=== PATIENT | female | born 1945 | race Caucasian/White ===

== ENCOUNTER 2016-10-29 10:16 | Inpatient (IN) | payer OTHER, MEDICARE ==
[2016-10-29 10:21] VITALS: BMI 20.7
[2016-10-29] MEDS ORDERED: PIPERACILLIN/TAZOB 3.375 GM/50 ML PRE-DOCKED IV ONE (11:25)
--- NOTE | 2016-10-29 11:29 | PDOC ---
History of Present Illness <Neal Sharma - Last Filed: 10/29/16 12:32> - General History Source: Patient, Old Records Exam Limitations: No Limitations - History of Present Illness Initial Comments: 10/29/16 11:31 The patient is a 71-year-old woman with a significant past medical history of bladder Ca (currently receiving BCG treatments), hypertension, myocardial infarction, chronic obstructive pulmonary disease pre-diabetes who presents to the emergency department by her Urologist, Dr. Rome Temple for further evaluation of urinary tract infection. She underwent an outpatient cystoscopy for which a biopsy was performed and she was ultimately diagnosed with bladder Ca. Patient has been receiving BCG treatments (last treatment was approximately 1 week ago). She states that she typically brings urine samples to her outpatient appointments. She has a history of multi-drug resistant UTIs, for which she was noted to have an urinary tract infection and was started on PO antibiotics (Levaquin, Bactrim) which did not help, as she still has a UTI. Patient denies any urinary symptoms, such as dysuria, hematuria, urinary frequency and urgency, flank pain. She denies abdominal pain, nausea, vomiting, diarrhea, constipation. She also reports an intermittent wet cough for which she attributes to he rhsitory of chronic obstructive pulonary disease. she states that her cough is slightly better with the use of her home O2 and inhalers. She denies fever, chills, hemoptysis, diaphoresis, shortness of breath, chest pain, headache. Allergies: None Known Past Surgical History: Stent placement. Social History: Current everyday cigarette smoker (approximately half a pack/day ). No ETOH or recreational drug use. Primary Care Physician: Dr. Khanh Gutiérrez [phone]/ [phone] Urologist: Dr. Rome Temple [phone] <Eva Calderon - Last Filed: 10/29/16 14:32> - General Chief Complaint: Urinary Problem Stated Complaint: SOB Time Seen by Provider: 10/29/16 11:03 Past History - Past Medical History Cancer: Yes (bladder) Cardiac Disorders: Yes ([place] 2007, stents 2008) CVA: No COPD: Yes (uses 02 3l prn) CHF: No Dementia: No Diabetes: No (pre diabetic) GI Disorders: No Disorders: Yes (turbt) HTN: Yes Hypercholesterolemia: No Liver Disease: No Seizures: No Thyroid Disease: No - Surgical History Abdominal Surgery: No Appendectomy: No Cardiac Surgery: Yes (STENTS 2009) Cholecystectomy: No Lung Surgery: No Neurologic Surgery: No Orthopedic Surgery: Yes (GANGLION CYST) - Psycho/Social/Smoking Cessation Hx Suicidal Ideation: No Smoking History: Current every day smoker Have you smoked in the past 12 months: Yes Number of Cigarettes Smoked Daily: 20 Information on smoking cessation initiated: No 'Breaking Loose' booklet given: 09/15/16 Hx Alcohol Use: No Drug/Substance Use Hx: No Substance Use Type: None Hx Substance Use Treatment: No <Neal Sharma - Last Filed: 10/29/16 12:32> <Eva Calderon - Last Filed: 10/29/16 14:32> - Past Medical History Allergies/Adverse Reactions: Allergies Allergy/AdvReac Type Severity Reaction Status Date / Time No Known Drug Allergies Allergy Verified 10/29/16 10:21 Home Medications: Ambulatory Orders Albuterol Sulfate [Proair Respiclick] 1 mcg IH DAILY PRN 05/08/16 Amlodipine Besylate 10 mg PO DAILY 05/08/16 Atorvastatin [place] [Lipitor] 80 mg PO DAILY 05/08/16 Losartan Potassium 100 mg PO DAILY 05/08/16 Tiotropium [place] [Spiriva] 1 inh PO DAILY 05/08/16 Clopidogrel Bisulfate [Plavix -] 75 mg PO DAILY #0 05/12/16 Fluticasone/Salmeterol [Advair 250-50 Diskus] 1 each IH BID 09/09/16 Review of Systems - Review of Systems Constitutional: No: Chills, Fever Respiratory: Yes: Cough (chronic), Shortness of Breath (chronic) Cardiac (ROS): No: Chest Pain ABD/GI: No: Diarrhea, Vomiting : Yes: See HPI Musculoskeletal: Yes: Back Pain All Other Systems: Reviewed and Negative <Neal Sharma - Last Filed: 10/29/16 12:32> *Physical Exam - Vital Signs Last Vital Signs Temp Pulse Resp BP Pulse Ox 97.8 F 86 20 111/55 87 L 10/29/16 10:17 10/29/16 10:17 10/29/16 10:17 10/29/16 10:17 10/29/16 10:17 <Neal Sharma - Last Filed: 10/29/16 12:32> - Vital Signs Last Vital Signs Temp Pulse Resp BP Pulse Ox 97.8 F 86 20 111/55 87 L 10/29/16 10:17 10/29/16 10:17 10/29/16 10:17 10/29/16 10:17 10/29/16 10:17 - Physical Exam Comments: 10/29/16 11:31 GENERAL: The patient is awake, alert, and fully oriented, in no acute distress. HEAD: Normal with no signs of trauma. EYES: Pupils equal, round and reactive to light, extraocular movements intact, sclera anicteric, conjunctiva clear with no pallor. ENT: Ears normal, nares patent, oropharynx clear without exudates. Moist mucous membranes. NECK: Normal range of motion, supple without lymphadenopathy, JVD, or masses. LUNGS: There are some coarse respiratory breath sounds. HEART: Regular rate and rhythm, normal S1 and S2 without murmur or rub. ABDOMEN: Soft/nontender/nondistended. BS wnl. No guarding or rebound. No palpable masses. No hepatosplenomegaly. BACK: No CVA tenderness. EXTREMITIES: Normal range of motion, no edema. No clubbing or cyanosis. No cords, erythema, or tenderness. NEUROLOGICAL: Cranial nerves II through XII grossly intact. Normal speech. PSYCH: Normal mood, normal affect. SKIN: Warm, Dry, normal turgor, no rashes or lesions noted. <Eva Calderon - Last Filed: 10/29/16 14:32> ED Treatment Course - LABORATORY CBC & Chemistry Diagram: 10/29/16 11:39 10/29/16 11:39 - RADIOLOGY Radiology Studies Ordered: Category Date Time Status CHEST X-RAY PORTABLE* [RAD] Stat Radiology 10/29/16 11:05 Ordered <Neal Sharma - Last Filed: 10/29/16 12:32> - LABORATORY CBC & Chemistry Diagram: 10/29/16 11:39 10/29/16 11:39 - RADIOLOGY Radiograph Interpretation: 10/29/16 14:31 EXAM: RAD/CHEST X-RAY PORTABLE IMPRESSION: Comparison study April 10, 2011. Unremarkable contour of the cardiomediastinal silhouette. No evidence of widening of the superior mediastinum. No bulky hilar adenopathy is seen. No evidence of pulmonary infiltrates, atelectasis, pleural effusion or pneumothorax. Mild dextroscoliosis of the thoracic spine is noted. Intact visualized osseous structures. <Eva Calderon - Last Filed: 10/29/16 14:32> Medical Decision Making - Medical Decision Making 10/29/16 11:26 A portion of this note was documented by scribe services under my direction. I have reviewed the details of the note, within reason, and agree with the documentation with the following case summary and management plan written by me. 71-year-old female with history of bladder CVA receiving BCG treatments with Dr. Temple, recurrent UTI with several outpatient antibiotic courses is in the past, most recently diagnosed with another UTI on cultures from 10/21/16, which showed Klebsiella resistant to most antibiotics, now sent in by Dr. Leny Benitez for IV antibiotics to clear the UTI so she can proceed with BCG treatments. Afebrile. Well-appearing Chronic, coarse cough 71-year-old female with multidrug resistant Klebsiella UTI, otherwise no signs or symptoms of bacteremia or sepsis. Labs, urinalysis, urine culture Based on prior urine cultures, Klebsiella is sensitive to Zosyn. Will proceed with admission and contact Dr. Gutiérrez, the patient's primary physician. 10/29/16 12:32 Accepted for inpatient med/surg, endorsed to Dr. Phillip. <Neal Sharma - Last Filed: 10/29/16 12:32> *DC/Admit/Observation/Transfer - Discharge Dispostion Admit: Yes <Neal Sharma - Last Filed: 10/29/16 12:32> - Attestations Scribe Attestion: 10/29/16 11:31 Documentation prepared by Eva Calderon, acting as medical program specialist for Neal Sharma MD. <Eva Calderon - Last Filed: 10/29/16 14:32> Diagnosis at time of Disposition: Bladder cancer Qualifiers: Bladder location: unspecified site Qualified Code(s): C67.9 - Malignant neoplasm of bladder, unspecified UTI (urinary tract infection) Qualifiers: Urinary tract infection type: acute cystitis Hematuria presence: without hematuria Qualified Code(s): N30.00 - Acute cystitis without hematuria - Referrals
[2016-10-29] MEDS ORDERED: PIPERACILLIN/TAZOB 3.375 GM 50 ML IVPB ONE (11:44)
[2016-10-29 11:54] LABS: BASOPHIL 0.8 % (0-2.0); EOSINOPHIL 1.8 % (0-4.5); MCH 30.8 pg (25.7-33.7); MCHC 33.3 g/dl (32.0-36.0); MEAN CELL VOLUME 92.5 fl (80-96); MEAN PLT VOLUME 8.3 fl (7.5-11.1); NEUTROPHILS 74.8 % (42.8-82.8); PLATELET COUNT 230 K/MM3 (134-434); RDW 14.4 % (11.6-15.6); WHITE BLOOD COUNT 11.3 K/mm3 (4.0-10.0)
[2016-10-29 12:10] LABS: ALBUMIN 4.2 g/dl (3.4-5.0); ANION GAP 11 (8-16); BILIRUBIN,TOTAL 0.8 mg/dL (0.2-1.0); CALCIUM 9.4 mg/dL (8.5-10.1); CO2 29 mmol/L (21-32); CREATININE 1.1 mg/dL (0.55-1.02); GLUCOSE,RANDOM 85 mg/dL (74-106); SGPT/ALT 22 U/L (12-78); TOT PROT 7.1 g/dl (6.4-8.2)
[2016-10-29 12:12] LABS: ALK PHOS 75 U/L (45-117); TROPONIN I < 0.02 ng/ml (0.00-0.05)
[2016-10-29 12:15] LABS: SGOT/AST 29 U/L (15-37)
[2016-10-29 12:21] LABS: URINE APPEARANCE TURBID; URINE BILIRUBIN NEGATIVE (NEGATIVE); URINE COLOR YELLOW; URINE GLUCOSE (UA) NEGATIVE (NEGATIVE); URINE KETONE NEGATIVE (NEGATIVE); URINE NITRITE POSITIVE (NEGATIVE); URINE UROBILINOGEN NEGATIVE E.U./dl (0.2-1.0)
[2016-10-29 12:22] LABS: URINE BLOOD 1+ (NEGATIVE); URINE LEUK ESTERASE 3+ (NEGATIVE); URINE PROTEIN 1+ (NEGATIVE)
[2016-10-29] MEDS ORDERED: ALBUTEROL SO4 0.083% IH SOL 2.5 MG/3 ML VIAL.NEB. NEB PRN (12:23)
[2016-10-29 12:30] LABS: URINE BACTERIA FEW /hpf (NONE SEEN); URINE MUCUS RARE; URINE RBC 8 /hpf (0-3); URINE WBC 933 /hpf (3-5)
[2016-10-29 12:46] LABS: INR 0.91 (0.82-1.09)
[2016-10-29 12:48] LABS: ACTIVATED PTT 31.5 SECONDS (26.9-34.4)
--- NOTE | 2016-10-29 14:02 | PN ---
Progress Note (short form) - Note Progress Note: ID consult dictated imp/reccd 71 year old female with bladder cancer, s/p 6 cycles of BCG from May to September repeat cysto showed tumor and BCG was resumed 10/08, and again 10/21 she has had several UTIS enterobacter 10/01, klebsiella 10/15 and 10/21- she has been treated with po bactrim and po levaquin Klebsiella is resistant to po meds and she was sent to the hospital for iv antibiotics no fevers or chills she has been drinking alot of water and cranberry juice occasional dysuria- infrequent), no flank pain no hematuria no nausea or vomiting agree with zosyn based on outpt urine culture results, f/u labs sent here Problem List - Problems (1) UTI (urinary tract infection) Code(s): N39.0 - URINARY TRACT INFECTION, SITE NOT SPECIFIED Qualifiers: Urinary tract infection type: acute cystitis Hematuria presence: without hematuria Qualified Code(s): N30.00 - Acute cystitis without hematuria (2) Bladder cancer Code(s): C67.9 - MALIGNANT NEOPLASM OF BLADDER, UNSPECIFIED Qualifiers: Bladder location: unspecified site Qualified Code(s): C67.9 - Malignant neoplasm of bladder, unspecified
--- NOTE | 2016-10-29 14:37 | HP ---
Admitting History and Physical - Primary Care Physician PCP: Khanh Gutiérrez - Admission Chief Complaint: UTI. BLADDER CA History Source: Patient, Medical Record Limitations to Obtaining History: No Limitations - Past Medical History ...: No - Smoking History Smoking history: Current every day smoker Have you smoked in the past 12 months: Yes Aproximately how many cigarettes per day: 20 - Alcohol/Substance Use Hx Alcohol Use: No Home Medications - Allergies Allergies/Adverse Reactions: Allergies Allergy/AdvReac Type Severity Reaction Status Date / Time No Known Drug Allergies Allergy Verified 10/29/16 10:21 - Home Medications Home Medications: Ambulatory Orders Albuterol Sulfate [Proair Respiclick] 1 mcg IH DAILY PRN 05/08/16 Amlodipine Besylate 10 mg PO DAILY 05/08/16 Atorvastatin [place] [Lipitor] 80 mg PO DAILY 05/08/16 Losartan Potassium 100 mg PO DAILY 05/08/16 Tiotropium [place] [Spiriva] 1 inh PO DAILY 05/08/16 Clopidogrel Bisulfate [Plavix -] 75 mg PO DAILY #0 05/12/16 Fluticasone/Salmeterol [Advair 250-50 Diskus] 1 each IH BID 09/09/16 Review of Systems - Review of Systems Constitutional: denies: Chills, Fever Cardiovascular: denies: Chest Pain Respiratory: denies: SOB Gastrointestinal: denies: Abdominal Pain Physical Examination Vital Signs: Vital Signs Temperature 97.8 F 10/29/16 10:17 Pulse Rate 86 10/29/16 10:17 Respiratory Rate 20 10/29/16 10:17 Blood Pressure 111/55 10/29/16 10:17 O2 Sat by Pulse Oximetry (%) 87 L 10/29/16 10:17 Constitutional: Yes: Calm Eyes: Yes: PERRL HENT: Yes: Normocephalic Neck: Yes: Supple Cardiovascular: Yes: Regular Rate and Rhythm, S1, S2 Respiratory: Yes: CTA Bilaterally Gastrointestinal: Yes: Normal Bowel Sounds, Soft. No: Tenderness Edema: No Problem List - Problems (1) Bladder cancer Code(s): C67.9 - MALIGNANT NEOPLASM OF BLADDER, UNSPECIFIED Qualifiers: Bladder location: unspecified site Qualified Code(s): C67.9 - Malignant neoplasm of bladder, unspecified (2) UTI (urinary tract infection) Code(s): N39.0 - URINARY TRACT INFECTION, SITE NOT SPECIFIED Qualifiers: Urinary tract infection type: acute cystitis Hematuria presence: without hematuria Qualified Code(s): N30.00 - Acute cystitis without hematuria (3) HTN (hypertension) Code(s): I10 - ESSENTIAL (PRIMARY) HYPERTENSION (4) H/O acute myocardial infarction Code(s): I25.2 - OLD MYOCARDIAL INFARCTION (5) COPD (chronic obstructive pulmonary disease) Code(s): J44.9 - CHRONIC OBSTRUCTIVE PULMONARY DISEASE, UNSPECIFIED (6) Prediabetes Code(s): R73.09 - OTHER ABNORMAL GLUCOSE Assessment/Plan The patient is a 71-year-old woman with a significant past medical history of bladder Ca (currently receiving BCG treatments), hypertension, myocardial infarction, chronic obstructive pulmonary disease pre-diabetes who presents to the emergency department by her Urologist, Dr. Rmoe Temple for further evaluation of urinary tract infection. She underwent an outpatient cystoscopy for which a biopsy was performed and she was ultimately diagnosed with bladder Ca. Patient has been receiving BCG treatments (last treatment was approximately 1 week ago). She states that she typically brings urine samples to her outpatient appointments. She has a history of multi-drug resistant UTIs, for which she was noted to have an urinary tract infection and was started on PO antibiotics (Levaquin, Bactrim) which did not help, as she still has a UTI. Patient denies any urinary symptoms, such as dysuria, hematuria, urinary frequency and urgency, flank pain. She denies abdominal pain, nausea, vomiting, diarrhea, constipation. She also reports an intermittent wet cough for which she attributes to he rhsitory of chronic obstructive pulonary disease. she states that her cough is slightly better with the use of her home O2 and inhalers. She denies fever, chills, hemoptysis, diaphoresis, shortness of breath, chest pain, headache. Allergies: None Known Past Surgical History: Stent placement. Social History: Current everyday cigarette smoker (approximately half a pack/day ). No ETOH or recreational drug use. Primary Care Physician: Dr. Khanh Gutiérrez [phone] Urologist: Dr. Rome Temple [phone] (1) Bladder cancer Code(s): C67.9 - MALIGNANT NEOPLASM OF BLADDER, UNSPECIFIED Qualifiers: Bladder location: unspecified site Qualified Code(s): C67.9 - Malignant neoplasm of bladder, unspecified ON CT ONCO CONSULTED (2) UTI (urinary tract infection) Code(s): N39.0 - URINARY TRACT INFECTION, SITE NOT SPECIFIED Qualifiers: Urinary tract infection type: acute cystitis Hematuria presence: without hematuria Qualified Code(s): N30.00 - Acute cystitis without hematuria H/O MULTIRESISTANT UTI APPRECIATE ID CONSULT IV ABx F/U CULTURES (3) HTN (hypertension) Code(s): I10 - ESSENTIAL (PRIMARY) HYPERTENSION (4) H/O acute myocardial infarction Code(s): I25.2 - OLD MYOCARDIAL INFARCTION TROP NEG x 1 -> F/U (5) COPD (chronic obstructive pulmonary disease) Code(s): J44.9 - CHRONIC OBSTRUCTIVE PULMONARY DISEASE, UNSPECIFIED ALB NEB PRN (6) Prediabetes Code(s): R73.09 - OTHER ABNORMAL GLUCOSE 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
--- NOTE | 2016-10-29 15:09 | CONS ---
INFECTIOUS DISEASE CONSULTATION DATE OF CONSULTATION: 10/29/2016 REQUESTED BY: Stan Phillip MD DICTATED BY: Rafat Smith MD HISTORY OF PRESENT ILLNESS: This is a 71-year-old woman with past medical history of bladder cancer. She was diagnosed in the summer. She states she has had 6 cycles of intravesical BCG from May until September. She had a follow-up cystoscopy in September that again revealed some residual bladder tumor. She again had another cycle of BCG on October 08 and another one October 21. Between these episodes, she has had multiple urinary tract infections, October 01 with Enterobacter, October 15 and October 21 with klebsiella. She has been treated with oral Levaquin and oral Bactrim, but she was told that she had resistance to these medications and was advised admission for IV antibiotics. She denies abdominal pain, nausea, vomiting, diarrhea, constipation. She has no fevers or chills. She has no hematuria. She has rare dysuria and no flank pain. PAST MEDICAL HISTORY: Notable for: 1. Coronary artery disease 2. Bladder cancer 3. COPD PAST SURGICAL HISTORY: 1. She is status post TURBT. 2. She has cardiac stents. 3. She has had ganglion cyst therapy. FAMILY HISTORY: Unremarkable. SOCIAL HISTORY: She is . She still smokes. There is no history of any substance use. ALLERGIES: She has no known drug allergies. MEDICATIONS: Her medications as an outpatient include: 1. Albuterol 2. Amlodipine 3. Atorvastatin 4. Losartan 5. Spiriva 6. Plavix 7. Advair REVIEW OF SYSTEMS: Notable for chronic shortness of breath, which is unchanged, and no real symptoms. She has been drinking plenty of water and cranberry juice in an effort to get of this urinary tract infection. PHYSICAL EXAM: General: She is awake and alert. Vital signs: Temperature is 97.8, blood pressure 111/55, pulse 86, respiratory rate 20. She weighs 106 pounds. HEENT exam: She is normocephalic. Her eyes are anicteric. Her neck is supple. Lungs: Lungs are clear to auscultation. Heart: Heart is regular rate and rhythm. Abdomen: Abdomen is soft, nontender. She has no suprapubic or CVA discomfort. Extremities: Extremities are without edema. LABS: Labs are notable for a white count of 11.3, hemoglobin 18.1. Platelets are 230. BUN and creatinine are 21 and 1.1. LFTs are normal. Urinalysis has 3+ leukocyte/esterase with 933 white cells. Urine and blood cultures are pending, and chest x-ray is negative for infiltrate. SUMMARY: 1. In summary, this is a 71-year-old woman admitted with UTI in the setting of bladder cancer with plans to continue intravesical BCG. Given the prior sensitivities, would agree with Zosyn pending follow-up cultures here. Can readjust her antibiotics after the results are back. 2. Bladder cancer. 3. History of chronic obstructive pulmonary disease. RAFAT GALINDO M.D. [id number]
[2016-10-29] MEDS ORDERED: PT OWN MED DRAWER 7, Y5N ONE ×2 (17:24→21:38)
[2016-10-29] MEDS: PIPERACILLIN/TAZOB 3.375 GM/50 ML PRE-DOCKED IVPB SCH (17:30)
--- NOTE | 2016-10-29 19:09 | CONSULT ---
Consult - text type - Consultation Consultation Note: The patient is a 71-year-old woman with a significant past medical history of bladder Ca (currently receiving BCG treatments), hypertension, myocardial infarction, chronic obstructive pulmonary disease pre-diabetes who presents to the emergency department by her Urologist, Dr. Rome Temple for further evaluation of urinary tract infection. She underwent an outpatient cystoscopy and biopsy was performed and she was ultimately diagnosed with bladder Ca. Patient has been receiving BCG treatments (last treatment was approximately 1 week ago). She also reports an intermittent wet cough for which she attributes to he rhsitory of chronic obstructive pulonary disease. she states that her cough is slightly better with the use of her home O2 and inhalers. She denies fever, chills, hemoptysis, diaphoresis, shortness of breath, chest pain, headache. ++ wt. loss--30lbs in 6months Allergies: None Known Past Surgical History: Stent placement. Social History: Current everyday cigarette smoker (approximately half a pack/day ). No ETOH or recreational drug use. Past History - Past Medical History Cancer: Yes (bladder) Cardiac Disorders: Yes ([place] 2007, stents 2008) COPD: Yes (uses 02 3l prn) (pre diabetic) Disorders: Yes (turbt) HTN: Yes - Surgical History Cardiac Surgery: Yes (STENTS 2008) Orthopedic Surgery: Yes (GANGLION CYST) - Psycho/Social/Smoking Cessation Hx Smoking History: Current every day smoker - Past Medical History Allergies/Adverse Reactions: Allergies Allergy/AdvReac Type Severity Reaction Status Date / Time No Known Drug Allergies Allergy Verified 10/29/16 10:21 Home Medications: Ambulatory Orders Albuterol Sulfate [Proair Respiclick] 1 mcg IH DAILY PRN 05/08/16 Amlodipine Besylate 10 mg PO DAILY 05/08/16 Atorvastatin [place] [Lipitor] 80 mg PO DAILY 05/08/16 Losartan Potassium 100 mg PO DAILY 05/08/16 Tiotropium [place] [Spiriva] 1 inh PO DAILY 05/08/16 Clopidogrel Bisulfate [Plavix -] 75 mg PO DAILY #0 05/12/16 Fluticasone/Salmeterol [Advair 250-50 Diskus] 1 each IH BID 09/09/16 Current Medications Aclidinium [place] (Tudorza -) 1 puff IH BID ALFA Albuterol Sulfate (Ventolin 0.083% Nebulizer Soln -) 1 amp NEB Q4H PRN PRN Reason: SHORT OF BREATH/WHEEZING Amlodipine Besylate (Norvasc -) 10 mg PO DAILY [facility]FA Atorvastatin [place] (Lipitor -) 80 mg PO HS ALFA Budesonide/Formoterol Fumarate (Symbicort 80/4.5mcg -) 2 puff IH BID [facility]FA Clopidogrel Bisulfate (Plavix -) 75 mg PO DAILY [facility]FA Heparin Sodium (Porcine) (Heparin -) 5,000 unit SQ BID ALFA Losartan Potassium (Cozaar -) 100 mg PO DAILY ALFA Piperacillin Sod/Tazobactam Sod (Zosyn 3.375gm Ivpb (Pre-Docked)) 3.375 gm IVPB Q8H-IV ALFA Last Admin: 10/29/16 17:30 Dose: 3.375 gm *Physical Exam - Vital Signs Last Vital Signs Temp Pulse Resp BP Pulse Ox 97.8 F 86 20 111/55 87 L 10/29/16 10:17 10/29/16 10:17 10/29/16 10:17 10/29/16 10:17 10/29/16 10:17 mildly cachectic Cor: RSR, No murmurs, No gallops Lungs: diminished breath sounds, scattered rhonchi Abd: Soft, Normal bowel sounds, No organomegaly Ext:No significant edema Abnormal Lab Results 10/29/16 10/29/16 10/29/16 11:39 11:39 12:00 WBC 11.3 H RBC 5.86 H Hgb 18.1 H D Hct 54.2 H BUN 21 H Creatinine 1.1 H CK-MB (CK-2) 14.207 H Urine Protein 1+ H Urine Blood 1+ H Ur Leukocyte Esterase 3+ H Current Medications Aclidinium [place] (Tudorza -) 1 puff IH BID ALFA Albuterol Sulfate (Ventolin 0.083% Nebulizer Soln -) 1 amp NEB Q4H PRN PRN Reason: SHORT OF BREATH/WHEEZING Amlodipine Besylate (Norvasc -) 10 mg PO DAILY ALFA Atorvastatin [place] (Lipitor -) 80 mg PO HS ALFA Budesonide/Formoterol Fumarate (Symbicort 80/4.5mcg -) 2 puff IH BID ALFA Clopidogrel Bisulfate (Plavix -) 75 mg PO DAILY [facility] Heparin Sodium (Porcine) (Heparin -) 5,000 unit SQ BID ALFA Losartan Potassium (Cozaar -) 100 mg PO DAILY [facility] Piperacillin Sod/Tazobactam Sod (Zosyn 3.375gm Ivpb (Pre-Docked)) 3.375 gm IVPB Q8H-IV ALFA Last Admin: 10/29/16 17:30 Dose: 3.375 gm A/P 71-year-old female with multiple comorbidities, COPD--on intermittent home O2, history of bladder Cancer, diagnosed when she presented with hematuria last summer. Receiving BCG treatments with Dr. Temple, since 06/27,recurrent UTI with several outpatient antibiotic courses in the past, most recently diagnosed with another UTI on cultures from 10/21/16, which showed Klebsiella resistant to most antibiotics, now sent in by Dr. Temple for IV antibiotics. will disucss with Dr. Jerez/ Dr. Gutiérrez Also reports wt. loss 30lbs over 6 months due to stress
[2016-10-29] MEDS: ACLIDINIUM BROMIDE 400 MCG/INH AERO.POWD IH SCH (21:45)
[2016-10-29] MEDS: HEPARIN NA (PORCINE) 5,000 UNITS/ML 1ML VIAL SQ SCH (21:45)
[2016-10-29] MEDS: BUDESONIDE/FORMETEROL FUMARATE 80/4.5 mcg INHALER IH SCH (21:45)
[2016-10-29] MEDS: ATORVASTATIN CA 80 MG TABLET (FP) PO SCH (21:46)
[2016-10-29 22:49] LABS: TROPONIN I 0.02 ng/ml (0.00-0.05)
[2016-10-30] MEDS: PIPERACILLIN/TAZOB 3.375 GM/50 ML PRE-DOCKED IVPB SCH ×3 (01:33→17:22)
[2016-10-30 01:44] LABS: TROPONIN I < 0.02 ng/ml (0.00-0.05)
[2016-10-30 08:45] LABS: BASOPHIL 0.7 % (0-2.0); EOSINOPHIL 2.7 % (0-4.5); MCH 30.7 pg (25.7-33.7); MCHC 33.3 g/dl (32.0-36.0); MEAN CELL VOLUME 92.1 fl (80-96); MEAN PLT VOLUME 8.1 fl (7.5-11.1); NEUTROPHILS 59.7 % (42.8-82.8); PLATELET COUNT 195 K/MM3 (134-434); RDW 14.1 % (11.6-15.6); WHITE BLOOD COUNT 7.7 K/mm3 (4.0-10.0)
[2016-10-30 09:05] LABS: ALBUMIN 3.3 g/dl (3.4-5.0); CALCIUM 8.6 mg/dL (8.5-10.1); CREATININE 1.1 mg/dL (0.55-1.02); TOT PROT 5.5 g/dl (6.4-8.2)
[2016-10-30] MEDS ORDERED: PT OWN MED DRAWER 7, Y5N ONE ×3 (09:59→21:46)
[2016-10-30] MEDS: amLODIPine BESYLATE 10 MG TABLET (FP) PO SCH (10:00)
[2016-10-30] MEDS ORDERED: PATIENT'S OWN MEDICATION (NON-FORMULARY) (Losartan Potassium [Losartan Potassium] 100 MG) PO SCH (10:00)
[2016-10-30] MEDS: HEPARIN NA (PORCINE) 5,000 UNITS/ML 1ML VIAL SQ SCH ×2 (10:00→21:49)
[2016-10-30] MEDS: LOSARTAN POTASSIUM 50 MG TABLET (FP) PO SCH (10:00)
[2016-10-30] MEDS ORDERED: ATORVASTATIN CA 80 MG TABLET (FP) PO SCH (10:00)
[2016-10-30] MEDS ORDERED: TIOTROPIUM BROMIDE 18 MCG/INH (DEVICE W/ 30 CAPSULES) IH SCH (10:00)
[2016-10-30] MEDS: BUDESONIDE/FORMETEROL FUMARATE 80/4.5 mcg INHALER IH SCH ×2 (10:01→21:49)
[2016-10-30] MEDS: CLOPIDOGREL BISULFATE 75 MG TABLET (FP) PO SCH (10:01)
[2016-10-30] MEDS: ACLIDINIUM BROMIDE 400 MCG/INH AERO.POWD IH SCH ×2 (10:01→21:49)
--- NOTE | 2016-10-30 18:52 | CON.GU ---
Consult Consult Specialty:: urology Referred by:: Reason for Consultation:: resistant uti - History of Present Illness Chief Complaint: uti History of Present Illness: patient with history of uti resistant to oral antibiotics. Patien has TCC of bladder and is currently receiving intravesical BCG. The patient is unable to receive her BCG while having an active infection. She denies fever, chill, nausea, vomiting, or gross hematuria. - History Source History Provided By: Patient Limitations to Obtaining History: No Limitations - Past Medical History ...: No - Alcohol/Substance Use Hx Alcohol Use: No - Smoking History Smoking history: Current every day smoker Have you smoked in the past 12 months: Yes Aproximately how many cigarettes per day: 20 Home Medications - Allergies Allergies/Adverse Reactions: Allergies Allergy/AdvReac Type Severity Reaction Status Date / Time No Known Drug Allergies Allergy Verified 10/29/16 10:21 - Home Medications Home Medications: Ambulatory Orders Albuterol Sulfate [Proair Respiclick] 1 mcg IH DAILY PRN 05/08/16 Amlodipine Besylate 10 mg PO DAILY 05/08/16 Atorvastatin Ca [Lipitor] 80 mg PO DAILY 05/08/16 Losartan Potassium 100 mg PO DAILY 05/08/16 Tiotropium [place] [Spiriva] 1 inh PO DAILY 05/08/16 Clopidogrel Bisulfate [Plavix -] 75 mg PO DAILY #0 05/12/16 Fluticasone/Salmeterol [Advair 250-50 Diskus] 1 each IH BID 09/09/16 Physical Exam- Vital Signs: Vital Signs Temperature 98.2 F 10/30/16 17:12 Pulse Rate 72 10/30/16 17:12 Respiratory Rate 20 10/30/16 17:12 Blood Pressure 119/55 10/30/16 17:12 O2 Sat by Pulse Oximetry (%) 98 10/30/16 09:00 Constitutional: Yes: Well Nourished, No Distress, Anxious, Other Eyes: Yes: WNL, Conjunctiva Clear, Occular Prosthesis HENT: Yes: WNL, Normocephalic, Tonsillar Exudate Neck: Yes: WNL, Trachea Midline Cardiovascular: Yes: WNL, Regular Rate and Rhythm Respiratory: Yes: On Nasal O2 Gastrointestinal: Yes: WNL, Normal Bowel Sounds, Soft Renal/: Yes: WNL Kidneys: Yes: WNL Pelvis: Yes: Bladder Non Palpable External Genitalia: Yes: WNL Labs: CBC, BMP 10/30/16 07:30 10/30/16 07:30 Assessment/Plan impression TCC of bladder UTI resistant to oral antibiotics Plan antibiotics as per ID discussed with patient x 20 minutes
--- NOTE | 2016-10-30 19:33 | PN ---
Progress Note, Physician - Current Medication List Current Medications: Active Medications Aclidinium [place] (Tudorza -) 1 puff IH BID [facility] Last Admin: 10/30/16 10:01 Dose: 1 puff Albuterol Sulfate (Ventolin 0.083% Nebulizer Soln -) 1 amp NEB Q4H PRN PRN Reason: SHORT OF BREATH/WHEEZING Amlodipine Besylate (Norvasc -) 10 mg PO DAILY [facility] Last Admin: 10/30/16 10:00 Dose: 10 mg Atorvastatin Calcium (Lipitor -) 80 mg PO HS [facility] Last Admin: 10/29/16 21:46 Dose: Not Given Budesonide/Formoterol Fumarate (Symbicort 80/4.5mcg -) 2 puff IH BID [facility] Last Admin: 10/30/16 10:01 Dose: 2 puff Clopidogrel Bisulfate (Plavix -) 75 mg PO DAILY [facility] Last Admin: 10/30/16 10:01 Dose: 75 mg Heparin Sodium (Porcine) (Heparin -) 5,000 unit SQ BID [facility] Last Admin: 10/30/16 10:00 Dose: 5,000 unit Losartan Potassium (Cozaar -) 100 mg PO DAILY [facility] Last Admin: 10/30/16 10:00 Dose: 100 mg Piperacillin Sod/Tazobactam Sod (Zosyn 3.375gm Ivpb (Pre-Docked)) 3.375 gm IVPB Q8H-IV [facility] Last Admin: 10/30/16 17:22 Dose: 3.375 gm - Objective Vital Signs: Vital Signs Temperature 98.2 F 10/30/16 17:12 Pulse Rate 72 10/30/16 17:12 Respiratory Rate 20 10/30/16 17:12 Blood Pressure 119/55 10/30/16 17:12 O2 Sat by Pulse Oximetry (%) 98 10/30/16 09:00 Cardiovascular: Yes: WNL Respiratory: Yes: WNL Gastrointestinal: Yes: WNL Labs: CBC, BMP 10/30/16 07:30 10/30/16 07:30 INR, PTT INR 0.91 (0.82-1.09) 10/29/16 11:39 Problem List - Problems (1) Bladder cancer Code(s): C67.9 - MALIGNANT NEOPLASM OF BLADDER, UNSPECIFIED Qualifiers: Bladder location: unspecified site Qualified Code(s): C67.9 - Malignant neoplasm of bladder, unspecified (2) UTI (urinary tract infection) Code(s): N39.0 - URINARY TRACT INFECTION, SITE NOT SPECIFIED Qualifiers: Urinary tract infection type: acute cystitis Hematuria presence: without hematuria Qualified Code(s): N30.00 - Acute cystitis without hematuria (3) HTN (hypertension) Code(s): I10 - ESSENTIAL (PRIMARY) HYPERTENSION (4) H/O acute myocardial infarction Code(s): I25.2 - OLD MYOCARDIAL INFARCTION (5) COPD (chronic obstructive pulmonary disease) Code(s): J44.9 - CHRONIC OBSTRUCTIVE PULMONARY DISEASE, UNSPECIFIED (6) Prediabetes Code(s): R73.09 - OTHER ABNORMAL GLUCOSE Assessment/Plan [facility]
--- NOTE | 2016-10-30 20:39 | PN ---
Progress Note (short form) - Note Progress Note: - Patient seen and examined anxious to go home Last Vital Signs Temp Pulse Resp BP Pulse Ox 98.2 F 72 20 119/55 98 10/30/16 17:12 10/30/16 17:12 10/30/16 17:12 10/30/16 17:12 10/30/16 09:00 HEENT: [place], EOM Intact Oropharynx: No thrush, No mucositis Cor: RSR, No murmurs, No gallops Lungs: distant breath sounds Abd: Soft, Normal bowel sounds, No organomegaly Ext:No significant edema Abnormal Lab Results 10/30/16 10/30/16 07:30 07:30 Hgb 15.5 H D Hct 46.5 H Anion Gap 7 L BUN 23 H Creatinine 1.1 H Total Protein 5.5 L D Albumin 3.3 L D A/P 71-year-old female with multiple comorbidities, COPD--on intermittent home O2, history of bladder Cancer, diagnosed when she presented with hematuria last summer. Receiving BCG treatments with Dr. Temple, since 06/27,recurrent UTI with several outpatient antibiotic courses in the past, most recently diagnosed with another UTI on cultures from 10/21/16, which showed Klebsiella resistant to most antibiotics, now sent in by Dr. Temple for IV antibiotics. Also reports wt. loss 30lbs over 6 months due to stress will discuss with teams involved
[2016-10-30] MEDS: ATORVASTATIN CA 80 MG TABLET (FP) PO SCH (21:49)
[2016-10-31] MEDS: PIPERACILLIN/TAZOB 3.375 GM/50 ML PRE-DOCKED IVPB SCH ×2 (01:32→10:28)
[2016-10-31 08:11] LABS: BASOPHIL 0.7 % (0-2.0); EOSINOPHIL 2.7 % (0-4.5); MCH 30.5 pg (25.7-33.7); MEAN CELL VOLUME 92.5 fl (80-96); MEAN PLT VOLUME 7.8 fl (7.5-11.1); NEUTROPHILS 63.6 % (42.8-82.8); PLATELET COUNT 196 K/MM3 (134-434); WHITE BLOOD COUNT 7.9 K/mm3 (4.0-10.0)
[2016-10-31 08:15] LABS: ALBUMIN 3.3 g/dl (3.4-5.0); CALCIUM 8.4 mg/dL (8.5-10.1)
[2016-10-31 08:17] LABS: BILIRUBIN,TOTAL 0.7 mg/dL (0.2-1.0); TOT PROT 5.6 g/dl (6.4-8.2)
[2016-10-31] MEDS ORDERED: PT OWN MED DRAWER 7, Y5N ONE (10:20)
[2016-10-31] MEDS: ACLIDINIUM BROMIDE 400 MCG/INH AERO.POWD IH SCH ×2 (10:27→21:49)
[2016-10-31] MEDS: BUDESONIDE/FORMETEROL FUMARATE 80/4.5 mcg INHALER IH SCH ×2 (10:27→21:49)
[2016-10-31] MEDS: HEPARIN NA (PORCINE) 5,000 UNITS/ML 1ML VIAL SQ SCH ×2 (10:28→21:49)
[2016-10-31] MEDS: amLODIPine BESYLATE 10 MG TABLET (FP) PO SCH (10:28)
[2016-10-31] MEDS: CLOPIDOGREL BISULFATE 75 MG TABLET (FP) PO SCH (10:28)
[2016-10-31] MEDS: LOSARTAN POTASSIUM 50 MG TABLET (FP) PO SCH (10:28)
--- NOTE | 2016-10-31 10:39 | PN ---
Progress Note, Physician Chief Complaint: AWAKE ALERT DENIES FEVER OR CHILLS - Current Medication List Current Medications: Active Medications Aclidinium [place] (Tudorza -) 1 puff IH BID [facility] Last Admin: 10/31/16 10:27 Dose: 1 puff Albuterol Sulfate (Ventolin 0.083% Nebulizer Soln -) 1 amp NEB Q4H PRN PRN Reason: SHORT OF BREATH/WHEEZING Amlodipine Besylate (Norvasc -) 10 mg PO DAILY [facility] Last Admin: 10/31/16 10:28 Dose: 10 mg Atorvastatin Calcium (Lipitor -) 80 mg PO HS [facility] Last Admin: 10/30/16 21:49 Dose: 80 mg Budesonide/Formoterol Fumarate (Symbicort 80/4.5mcg -) 2 puff IH BID [facility] Last Admin: 10/31/16 10:27 Dose: 2 puff Clopidogrel Bisulfate (Plavix -) 75 mg PO DAILY [facility] Last Admin: 10/31/16 10:28 Dose: 75 mg Heparin Sodium (Porcine) (Heparin -) 5,000 unit SQ BID [facility] Last Admin: 10/31/16 10:28 Dose: 5,000 unit Losartan Potassium (Cozaar -) 100 mg PO DAILY [facility] Last Admin: 10/31/16 10:28 Dose: 100 mg Piperacillin Sod/Tazobactam Sod (Zosyn 3.375gm Ivpb (Pre-Docked)) 3.375 gm IVPB Q8H-IV [facility] Last Admin: 10/31/16 10:28 Dose: 3.375 gm - Objective Vital Signs: Vital Signs Temperature 97.8 F 10/31/16 08:00 Pulse Rate 57 L 10/31/16 08:00 Respiratory Rate 18 10/31/16 08:00 Blood Pressure 139/67 10/31/16 08:00 O2 Sat by Pulse Oximetry (%) 98 10/30/16 21:00 Constitutional: Yes: No Distress Eyes: Yes: WNL HENT: Yes: WNL Neck: Yes: WNL Cardiovascular: Yes: WNL Respiratory: Yes: Cough, Diminished, On Nasal O2 Gastrointestinal: Yes: WNL Genitourinary: Yes: Other Musculoskeletal: Yes: WNL Extremities: Yes: WNL Edema: No Peripheral Pulses WNL: Yes Integumentary: Yes: WNL Wound/Incision: Yes: Clean/Dry Neurological: Yes: WNL ...Motor Strength: WNL Psychiatric: Yes: WNL Labs: CBC, BMP 10/31/16 06:25 10/31/16 06:25 INR, PTT INR 0.91 (0.82-1.09) 10/29/16 11:39 Problem List - Problems (1) Bladder cancer Code(s): C67.9 - MALIGNANT NEOPLASM OF BLADDER, UNSPECIFIED Qualifiers: Bladder location: unspecified site Qualified Code(s): C67.9 - Malignant neoplasm of bladder, unspecified (2) COPD (chronic obstructive pulmonary disease) Code(s): J44.9 - CHRONIC OBSTRUCTIVE PULMONARY DISEASE, UNSPECIFIED (3) HTN (hypertension) Code(s): I10 - ESSENTIAL (PRIMARY) HYPERTENSION (4) UTI (urinary tract infection) Code(s): N39.0 - URINARY TRACT INFECTION, SITE NOT SPECIFIED Qualifiers: Urinary tract infection type: acute cystitis Hematuria presence: without hematuria Qualified Code(s): N30.00 - Acute cystitis without hematuria Assessment/Plan RESISTANT UTI NEG BACILLI AWAIT SENSITIVITY ZOSYN IV CONTINUED FAILED ON PO ABX OUTPATIENT COPD STABLE 02 ID NEBS INH BLADDER CANCER TCC ONCOLOGY FOLLOW UP
--- NOTE | 2016-10-31 15:40 | PN ---
Progress Note (short form) - Note Progress Note: she is very anxious no other complaints has had a 30 poound weight loss since diagnosis Vital Signs Period Temp Pulse Resp BP Sys/Lock Pulse Ox Last 24 Hr 97.5 F-98.3 F 57-72 18-20 119-139/55-76 92-98 cor-rrr lungs clear abd soft, nt ext no edema CBC, BMP 10/31/16 06:25 10/31/16 06:25 Microbiology 10/29/16 12:49 Blood - Peripheral Venous Blood Culture - Preliminary NO GROWTH OBTAINED AFTER 48 HOURS, INCUBATION TO CONTINUE FOR 3 DAYS. 10/29/16 12:07 Urine - Urine Clean Catch Urine Culture - Final Klebsiella Pneumoniae - Esbl 10/29/16 21:00 Blood - Peripheral Venous Blood Culture - Preliminary NO GROWTH OBTAINED AFTER 24 HOURS, INCUBATION TO CONTINUE FOR 4 DAYS. a/p bladder cancer-on BCG treatment kleb esbl uti- day #2 antibiotics switch to ertapenem will need picc line and treatment for two weeks d/w patient she is upset but understands the rationale for the treatment wt loss- f/u with oncology check TSH still smoking! Problem List - Problems (1) UTI (urinary tract infection) Code(s): N39.0 - URINARY TRACT INFECTION, SITE NOT SPECIFIED Qualifiers: Urinary tract infection type: acute cystitis Hematuria presence: without hematuria Qualified Code(s): N30.00 - Acute cystitis without hematuria (2) Bladder cancer Code(s): C67.9 - MALIGNANT NEOPLASM OF BLADDER, UNSPECIFIED Qualifiers: Bladder location: unspecified site Qualified Code(s): C67.9 - Malignant neoplasm of bladder, unspecified
--- NOTE | 2016-10-31 16:31 | PN ---
Progress Note (short form) - Note Progress Note: Patient seen and examined Being evaluated for therapy for resistant Klebsiella. Goal to sterilize urine to facilitate reinstitution of BCG. Last Vital Signs Temp Pulse Resp BP Pulse Ox 98.3 F 70 20 138/76 92 L 10/31/16 15:14 10/31/16 15:14 10/31/16 15:14 10/31/16 15:14 10/31/16 10:46 HEENT: [place], EOM Intact Oropharynx: No thrush, No mucositis,dentures Cor: RSR, No murmurs, No gallops Lungs:diminished breath sounds bilaterally Abd: Soft, Normal bowel sounds, No organomegaly Ext:No significant edema Skin: No rashes, Integument intact CBC, BMP 10/31/16 06:25 10/31/16 06:25 Current Medications Generic Name Dose Route Start Last Admin Trade Name Freq PRN Reason Stop Dose Admin Aclidinium [place] 1 puff 10/29/16 22:00 10/31/16 10:27 Tudorza - IH 1 puff BID [facility] Administration Albuterol Sulfate 1 amp 10/29/16 12:23 Ventolin 0.083% Nebulizer Soln - NEB Q4H PRN SHORT OF BREATH/WHEEZING Amlodipine Besylate 10 mg 10/30/16 10:00 10/31/16 10:28 Norvasc - PO 10 mg DAILY [facility] Administration Atorvastatin Calcium 80 mg 10/29/16 22:00 10/30/16 21:49 Lipitor - PO 80 mg HS [facility] Administration Budesonide/Formoterol Fumarate 2 puff 10/29/16 22:00 10/31/16 10:27 Symbicort 80/4.5mcg - IH 2 puff BID [facility] Administration Clopidogrel Bisulfate 75 mg 10/30/16 10:00 10/31/16 10:28 Plavix - PO 75 mg DAILY [facility] Administration Heparin Sodium (Porcine) 5,000 unit 10/29/16 22:00 10/31/16 10:28 Heparin - SQ 5,000 unit BID [facility] Administration Ertapenem 1 gm/ Sodium 50 mls @ 50 mls/hr 10/31/16 15:45 Chloride IVPB DAILY [facility] Losartan Potassium 100 mg 10/30/16 10:00 10/31/16 10:28 Cozaar - PO 100 mg DAILY [facility] Administration Impression: Problem List - Problems (1) Bladder cancer Assessment/Plan: Patient underwent cystoscopy in May 2016. Found to have superficial bladder ca involving lamina propria. NO LVI and no muscle in biopsy specimen. Treated with weekly BCG x 6, and one month later additional BCG. In early September, repeat cysto and biopsy was negative for ca. Has had multiple UTI's and now with resistant Klebsiella in urine such that additional therapy cannot be administered. Seen by I.D. and will need therapy for ESBL UTI. Patient has lost 30 lbs over the time period since diagnosis.( ) It would be unusual to lose such weight from a superficial bladder ca. Will therefore do screening Ct scans. Code(s): C67.9 - MALIGNANT NEOPLASM OF BLADDER, UNSPECIFIED Qualifiers: Bladder location: unspecified site Qualified Code(s): C67.9 - Malignant neoplasm of bladder, unspecified (2) COPD (chronic obstructive pulmonary disease) Code(s): J44.9 - CHRONIC OBSTRUCTIVE PULMONARY DISEASE, UNSPECIFIED (3) UTI (urinary tract infection) Code(s): N39.0 - URINARY TRACT INFECTION, SITE NOT SPECIFIED Qualifiers: Urinary tract infection type: acute cystitis Hematuria presence: without hematuria Qualified Code(s): N30.00 - Acute cystitis without hematuria (4) Weight loss Code(s): R63.4 - ABNORMAL WEIGHT LOSS
[2016-10-31] MEDS: ERTAPENEM SODIUM 1 GM in SODIUM CHLORIDE 50 ML IVPB SCH (18:01)
[2016-10-31] MEDS: ATORVASTATIN CA 80 MG TABLET (FP) PO SCH (21:49)
[2016-11-01] MEDS ORDERED: PT OWN MED DRAWER 7, Y5N ONE (10:16)
[2016-11-01] MEDS: LACTOBACILLUS ACIDOPHILUS 1 EACH TAB (FP) PO SCH (10:19)
[2016-11-01] MEDS: HEPARIN NA (PORCINE) 5,000 UNITS/ML 1ML VIAL SQ SCH ×2 (10:20→21:47)
[2016-11-01] MEDS ORDERED: diphenhydrAMINE HCL 25 MG CAPSULE (FP) PO PRN (10:20)
[2016-11-01] MEDS: CLOPIDOGREL BISULFATE 75 MG TABLET (FP) PO SCH (10:20)
[2016-11-01] MEDS: ERTAPENEM SODIUM 1 GM in SODIUM CHLORIDE 50 ML IVPB SCH (10:20)
[2016-11-01] MEDS: amLODIPine BESYLATE 10 MG TABLET (FP) PO SCH (10:20)
[2016-11-01] MEDS: LOSARTAN POTASSIUM 50 MG TABLET (FP) PO SCH (10:20)
[2016-11-01] MEDS: BUDESONIDE/FORMETEROL FUMARATE 80/4.5 mcg INHALER IH SCH ×2 (10:21→21:46)
[2016-11-01] MEDS: ACLIDINIUM BROMIDE 400 MCG/INH AERO.POWD IH SCH ×2 (10:21→21:47)
--- NOTE | 2016-11-01 10:29 | PN ---
Progress Note, Physician Chief Complaint: AWAKE ALERT C/O TIMING OF CT SCAN C/O IV ABX C/O HER MEDICAL STATUS PATIENT APPEARS DEPRESSED - Current Medication List Current Medications: Active Medications Aclidinium [place] (Tudorza -) 1 puff IH BID [facility] Last Admin: 11/01/16 10:21 Dose: 1 puff Albuterol Sulfate (Ventolin 0.083% Nebulizer Soln -) 1 amp NEB Q4H PRN PRN Reason: SHORT OF BREATH/WHEEZING Amlodipine Besylate (Norvasc -) 10 mg PO DAILY [facility] Last Admin: 11/01/16 10:20 Dose: 10 mg Atorvastatin Calcium (Lipitor -) 80 mg PO HS [facility] Last Admin: 10/31/16 21:49 Dose: 80 mg Budesonide/Formoterol Fumarate (Symbicort 80/4.5mcg -) 2 puff IH BID [facility] Last Admin: 11/01/16 10:21 Dose: 2 puff Clopidogrel Bisulfate (Plavix -) 75 mg PO DAILY [facility] Last Admin: 11/01/16 10:20 Dose: 75 mg Heparin Sodium (Porcine) (Heparin -) 5,000 unit SQ BID [facility] Last Admin: 11/01/16 10:20 Dose: 5,000 unit Ertapenem 1 gm/ Sodium (Chloride) 50 mls @ 50 mls/hr IVPB DAILY [facility] Last Admin: 11/01/16 10:20 Dose: 50 mls/hr Lactobacillus Acidophilus (Bacid -) 1 tab PO DAILY [facility] Last Admin: 11/01/16 10:19 Dose: 1 tab Losartan Potassium (Cozaar -) 100 mg PO DAILY [facility] Last Admin: 11/01/16 10:20 Dose: 100 mg - Objective Vital Signs: Vital Signs Temperature 97.8 F 11/01/16 06:00 Pulse Rate 62 11/01/16 06:00 Respiratory Rate 20 11/01/16 06:00 Blood Pressure 134/77 11/01/16 06:00 O2 Sat by Pulse Oximetry (%) 95 10/31/16 21:00 Constitutional: Yes: Moderate Distress Eyes: Yes: WNL HENT: Yes: WNL Neck: Yes: WNL Cardiovascular: Yes: WNL Respiratory: Yes: Diminished, On Nasal O2 Gastrointestinal: Yes: WNL Genitourinary: Yes: WNL Musculoskeletal: Yes: WNL Extremities: Yes: WNL Edema: No Peripheral Pulses WNL: Yes Integumentary: Yes: WNL Wound/Incision: Yes: Clean/Dry Neurological: Yes: WNL ...Motor Strength: WNL Psychiatric: Yes: WNL Labs: CBC, BMP 10/31/16 06:25 10/31/16 06:25 INR, PTT INR 0.91 (0.82-1.09) 10/29/16 11:39 Problem List - Problems (1) Bladder cancer Code(s): C67.9 - MALIGNANT NEOPLASM OF BLADDER, UNSPECIFIED Qualifiers: Bladder location: unspecified site Qualified Code(s): C67.9 - Malignant neoplasm of bladder, unspecified (2) COPD (chronic obstructive pulmonary disease) Code(s): J44.9 - CHRONIC OBSTRUCTIVE PULMONARY DISEASE, UNSPECIFIED (3) HTN (hypertension) Code(s): I10 - ESSENTIAL (PRIMARY) HYPERTENSION (4) UTI (urinary tract infection) Code(s): N39.0 - URINARY TRACT INFECTION, SITE NOT SPECIFIED Qualifiers: Urinary tract infection type: acute cystitis Hematuria presence: without hematuria Qualified Code(s): N30.00 - Acute cystitis without hematuria (5) ESBL (extended spectrum beta-lactamase) producing bacteria infection Code(s): A49.9 - BACTERIAL INFECTION, UNSPECIFIED Z16.12 - EXTENDED SPECTRUM BETA LACTAMASE (ESBL) RESISTANCE Assessment/Plan RESISTANT UTI NEG BACILLI ESBL ON ISOLATION AWAIT SENSITIVITY ZOSYN IV CONTINUED/MERIPENEM PICC LINE THURSDAY DC HOME FAILED ON PO ABX OUTPATIENT COPD STABLE 02 NC NEBS INH BLADDER CANCER TCC ONCOLOGY FOLLOW UP
[2016-11-01] MEDS: NICOTINE 21 MG/24 HOURS TOPICAL PATCH TD SCH (14:58)
[2016-11-01] MEDS: CITALOPRAM HYDROBROMIDE 10 MG TABLET (FP) PO SCH (14:58)
[2016-11-01] MEDS: ATORVASTATIN CA 80 MG TABLET (FP) PO SCH (21:46)
[2016-11-02] MEDS ORDERED: PT OWN MED DRAWER 7, Y5N ONE (09:50)
[2016-11-02] MEDS: LOSARTAN POTASSIUM 50 MG TABLET (FP) PO SCH (09:57)
[2016-11-02] MEDS: CLOPIDOGREL BISULFATE 75 MG TABLET (FP) PO SCH (09:58)
[2016-11-02] MEDS: CITALOPRAM HYDROBROMIDE 10 MG TABLET (FP) PO SCH (09:58)
[2016-11-02] MEDS: LACTOBACILLUS ACIDOPHILUS 1 EACH TAB (FP) PO SCH (09:58)
[2016-11-02] MEDS: amLODIPine BESYLATE 10 MG TABLET (FP) PO SCH (09:58)
[2016-11-02] MEDS: NICOTINE 21 MG/24 HOURS TOPICAL PATCH TD SCH (09:59)
[2016-11-02] MEDS: HEPARIN NA (PORCINE) 5,000 UNITS/ML 1ML VIAL SQ SCH ×2 (09:59→21:47)
[2016-11-02] MEDS: BUDESONIDE/FORMETEROL FUMARATE 80/4.5 mcg INHALER IH SCH ×2 (09:59→21:47)
[2016-11-02] MEDS: ACLIDINIUM BROMIDE 400 MCG/INH AERO.POWD IH SCH ×2 (10:00→21:47)
[2016-11-02] MEDS: ERTAPENEM SODIUM 1 GM in SODIUM CHLORIDE 50 ML IVPB SCH (10:20)
--- NOTE | 2016-11-02 12:50 | PN ---
Progress Note, Physician Chief Complaint: awake alert +cough ct abd/pelvis no acute changes , no neoplasms - Current Medication List Current Medications: Active Medications Aclidinium [place] (Tudorza -) 1 puff IH BID [facility] Last Admin: 11/02/16 10:00 Dose: 1 puff Albuterol Sulfate (Ventolin 0.083% Nebulizer Soln -) 1 amp NEB Q4H PRN PRN Reason: SHORT OF BREATH/WHEEZING Last Admin: 11/01/16 20:05 Dose: 1 amp Amlodipine Besylate (Norvasc -) 10 mg PO DAILY [facility] Last Admin: 11/02/16 09:58 Dose: 10 mg Atorvastatin Calcium (Lipitor -) 80 mg PO HS [facility] Last Admin: 11/01/16 21:46 Dose: 80 mg Budesonide/Formoterol Fumarate (Symbicort 80/4.5mcg -) 2 puff IH BID [facility] Last Admin: 11/02/16 09:59 Dose: 2 puff Citalopram Hydrobromide (Celexa -) 5 mg PO DAILY [facility] Last Admin: 11/02/16 09:58 Dose: 5 mg Clopidogrel Bisulfate (Plavix -) 75 mg PO DAILY [facility] Last Admin: 11/02/16 09:58 Dose: 75 mg Diphenhydramine HCl (Benadryl -) 25 mg PO Q6H PRN PRN Reason: FOR ITCHING Heparin Sodium (Porcine) (Heparin -) 5,000 unit SQ BID [facility] Last Admin: 11/02/16 09:59 Dose: 5,000 unit Ertapenem 1 gm/ Sodium (Chloride) 50 mls @ 50 mls/hr IVPB DAILY [facility] Last Admin: 11/02/16 10:20 Dose: 50 mls/hr Lactobacillus Acidophilus (Bacid -) 1 tab PO DAILY [facility] Last Admin: 11/02/16 09:58 Dose: 1 tab Losartan Potassium (Cozaar -) 100 mg PO DAILY [facility] Last Admin: 11/02/16 09:57 Dose: 100 mg Nicotine (Nicoderm Patch -) 21 mg TD DAILY [facility] Last Admin: 11/02/16 09:59 Dose: 21 mg - Objective Vital Signs: Vital Signs Temperature 98.0 F 11/02/16 06:00 Pulse Rate 63 11/02/16 06:00 Respiratory Rate 20 11/02/16 06:00 Blood Pressure 150/80 11/02/16 06:00 O2 Sat by Pulse Oximetry (%) 95 10/31/16 21:00 Constitutional: Yes: Mild Distress Eyes: Yes: WNL HENT: Yes: WNL Neck: Yes: WNL Cardiovascular: Yes: WNL Respiratory: Yes: Cough, Diminished, On Nasal O2 Gastrointestinal: Yes: WNL Genitourinary: Yes: WNL Musculoskeletal: Yes: Muscle Weakness Extremities: Yes: WNL Edema: No Peripheral Pulses WNL: Yes Integumentary: Yes: WNL Wound/Incision: Yes: Clean/Dry Neurological: Yes: WNL ...Motor Strength: LLE, RLE Psychiatric: Yes: Other Labs: CBC, BMP 10/31/16 06:25 10/31/16 06:25 INR, PTT INR 0.91 (0.82-1.09) 10/29/16 11:39 Problem List - Problems (1) Bladder cancer Code(s): C67.9 - MALIGNANT NEOPLASM OF BLADDER, UNSPECIFIED Qualifiers: Bladder location: unspecified site Qualified Code(s): C67.9 - Malignant neoplasm of bladder, unspecified (2) COPD (chronic obstructive pulmonary disease) Code(s): J44.9 - CHRONIC OBSTRUCTIVE PULMONARY DISEASE, UNSPECIFIED (3) HTN (hypertension) Code(s): I10 - ESSENTIAL (PRIMARY) HYPERTENSION (4) UTI (urinary tract infection) Code(s): N39.0 - URINARY TRACT INFECTION, SITE NOT SPECIFIED Qualifiers: Urinary tract infection type: acute cystitis Hematuria presence: without hematuria Qualified Code(s): N30.00 - Acute cystitis without hematuria (5) ESBL (extended spectrum beta-lactamase) producing bacteria infection Code(s): A49.9 - BACTERIAL INFECTION, UNSPECIFIED Z16.12 - EXTENDED SPECTRUM BETA LACTAMASE (ESBL) RESISTANCE Assessment/Plan RESISTANT UTI NEG BACILLI ESBL ON ISOLATION AWAIT SENSITIVITY ZOSYN IV CONTINUED/MERIPENEM PICC LINE THURSDAY DC HOME FAILED ON PO ABX OUTPATIENT COPD STABLE 02 NC NEBS INH BLADDER CANCER TCC ONCOLOGY FOLLOW UP
[2016-11-02] MEDS: ATORVASTATIN CA 80 MG TABLET (FP) PO SCH (21:47)
--- NOTE | 2016-11-03 08:31 | CON.CARD ---
Consult Consult Specialty:: cardio Referred by:: madi Reason for Consultation:: h/o CAD - History of Present Illness Chief Complaint: UTI History of Present Illness: 71 yo female admitted for tx of resistant UTI, failing outpt po abx. she has recently dx'd bladder Ca being tx'd by dr marcelino padilla with BCG treatments; had repeat scope recently as part of that monitoring/tx. has resistant organism UTI requiring inpt tx--plan is for picc line and 2 wks iv abx. sees me in office for h/o CAD with many prior stents (full metal jacket of RCA i believe). has chronic chest tightness accompanying her severe [place] sx's for years which has been unchanged and is due to her copd, not CAD. had repeat cath for this approx 1-2 yrs ago showing patent stents, with mildly depressed LVEF. her sx's have remained the same since that cath. she has never had clinical chf and her sob sx's never improved with trial of lasix briefly after that cath (EDP was also slightly elevated). noticing cough with werner white to faint yellow phlegm; started for couple days now, while in hospital; no orthopnea, no new sob feels "pinching" localized pain L pectoral comes and goes often at rest in bed. going on for several days, never severe, no radiation or assctd diaph/LH/SOB with it. doesn't feel like her prior angina from years ago L shoulder/upper arm pain began 1 week ago at home, worse with movement of arm/ shoulder PMH: anxiety disorder +cigs--active, not interested in cessation HTN HPL - Past Medical History ...: No - Alcohol/Substance Use Hx Alcohol Use: No - Smoking History Smoking history: Current every day smoker Have you smoked in the past 12 months: Yes Aproximately how many cigarettes per day: 20 Home Medications - Allergies Allergies/Adverse Reactions: Allergies Allergy/AdvReac Type Severity Reaction Status Date / Time No Known Drug Allergies Allergy Verified 10/29/16 10:21 - Home Medications Home Medications: Ambulatory Orders Albuterol Sulfate [Proair Respiclick] 1 mcg IH DAILY PRN 05/08/16 Amlodipine Besylate 10 mg PO DAILY 05/08/16 Losartan Potassium 100 mg PO DAILY 05/08/16 Clopidogrel Bisulfate [Plavix -] 75 mg PO DAILY #0 05/12/16 Fluticasone/Salmeterol [Advair 250-50 Diskus] 1 each IH BID 09/09/16 Aclidinium [place] [Tudorza -] 1 puff IH BID inhaler 11/03/16 Atorvastatin Ca [Lipitor] 80 mg PO HS tablet 11/03/16 Citalopram Hydrobromide [Celexa -] 5 mg PO DAILY #30 tablet 11/03/16 Diphenhydramine HCl [Benadryl Capsule -] 25 mg PO Q6H PRN #20 capsule 11/03/16 Ertapenem Sodium [Invanz -] 1 gm IVPB DAILY #9 vial 11/03/16 Lactobacillus Acidophilus [Bacid -] 1 tab PO BID #60 tab 11/03/16 Nicotine Patch [Nicoderm Patch -] 21 mg TD DAILY #30 patch 11/03/16 Family Disease History - Family Disease History Family History: Denies (no cmp) Review of Systems - Review of Systems Constitutional: denies: Chills, Fever Eyes: denies: Eye Pain HENT: denies: Nasal Congestion Neck: denies: Stiffness Cardiovascular: denies: Palpitations Respiratory: denies: Orthopnea, PND Gastrointestinal: denies: Diarrhea, Rectal Bleeding Genitourinary: denies: Burning, Hematuria Musculoskeletal: denies: Muscle Pain Integumentary: denies: Rash Neurological: denies: Numbness, Seizure, Syncope Endocrine: denies: Excessive Sweating Hematology/Lymphatic: denies: Excessive Bleeding Vital Signs: Vital Signs Temperature 98.2 F 11/03/16 05:39 Pulse Rate 60 11/03/16 05:39 Respiratory Rate 20 11/03/16 05:39 Blood Pressure 140/68 11/03/16 05:39 O2 Sat by Pulse Oximetry (%) 95 10/31/16 21:00 Constitutional: Yes: Well Nourished, No Distress Eyes: No: Sclera Icterus HENT: No: Nasal Congestion Neck: No: Decreased ROM Respiratory: Yes: CTA Bilaterally, Rhonchi. No: Accessory Muscle Use, Rales, Wheezes Gastrointestinal: Yes: Normal Bowel Sounds. No: Distention, Hepatomegaly, Palpable Mass, Tenderness Cardiovascular: Yes: Regular Rate and Rhythm JVD: No Carotid Bruit: No PMI: Non-Displaced Heart Sounds: Yes: S1, S2. No: Gallop Murmur: No: Systolic Murmur, Diastolic Murmur Musculoskeletal: Yes: Other (No kyphosis) Extremities: No: Cold, Cyanosis Edema: No Peripheral Pulses: 2+ Left Carotid, 2+ Right Carotid, 2+ Left Doralis Pedis, 2+ Right Dorsalis Pedis Integumentary: No: Jaundice Neurological: Yes: Alert, Oriented (x3) Psychiatric: No: Agitated - Other Data Labs, Other Data: CBC, BMP 10/31/16 06:25 10/31/16 06:25 INR, PTT INR 0.91 (0.82-1.09) 10/29/16 11:39 Laboratory Tests 10/29/16 10/29/16 10/30/16 11:39 21:00 00:45 WBC Hgb Plt Count Sodium Potassium Carbon Dioxide BUN Creatinine Troponin I < 0.02 0.02 < 0.02 10/31/16 10/31/16 06:25 06:25 WBC 7.9 Hgb 15.6 H Plt Count 196 Sodium 141 Potassium 4.5 Carbon Dioxide 29 BUN 20 H Creatinine 1.0 Troponin I Imaging - Results Chest X-ray: Report Reviewed (clear lungs/pleura) Assessment/Plan chronic CAD w/o angina: -mult prior stents (prox and mid LAD, entire RCA and RPDA) all patent on cath 2013 -no angina (chronic sob with chest pressure is copd sx--present prior to cath and unchanged since) -trop x 3 neg here -cont home CAD regimen (plavix, atorva 80, losartan) atyp CP: -current sx's highly atypical, non-anginal description, likely muscular (see hpi ) -ekg ordered--if unchanged, no further isch workup indicated at this time chronic diast chf -borderline depressed LVEF (45% on v-gram, 50% echo 2015) with moderately incr' d LVEDP at cath (24) -never clinical chf, no sob response to trial of lasix in past -current exam--clinically euvolemic -no diuretics needed pulm HTN: -PAP 53/28 at cath, 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
[2016-11-03] MEDS: CLOPIDOGREL BISULFATE 75 MG TABLET (FP) PO SCH (09:06)
[2016-11-03] MEDS: HEPARIN NA (PORCINE) 5,000 UNITS/ML 1ML VIAL SQ SCH ×2 (09:06→22:08)
[2016-11-03] MEDS ORDERED: PT OWN MED DRAWER 7, Y5N ONE (10:05)
[2016-11-03] MEDS: LACTOBACILLUS ACIDOPHILUS 1 EACH TAB (FP) PO SCH ×2 (10:10→22:08)
[2016-11-03] MEDS: CITALOPRAM HYDROBROMIDE 10 MG TABLET (FP) PO SCH (10:10)
[2016-11-03] MEDS: amLODIPine BESYLATE 10 MG TABLET (FP) PO SCH (10:10)
[2016-11-03] MEDS: LOSARTAN POTASSIUM 50 MG TABLET (FP) PO SCH (10:10)
[2016-11-03] MEDS: ERTAPENEM SODIUM 1 GM in SODIUM CHLORIDE 50 ML IVPB SCH (10:11)
[2016-11-03] MEDS: NICOTINE 21 MG/24 HOURS TOPICAL PATCH TD SCH (10:11)
[2016-11-03] MEDS: BUDESONIDE/FORMETEROL FUMARATE 80/4.5 mcg INHALER IH SCH ×2 (10:21→22:09)
[2016-11-03] MEDS: ACLIDINIUM BROMIDE 400 MCG/INH AERO.POWD IH SCH ×2 (10:22→22:09)
--- NOTE | 2016-11-03 10:22 | PN ---
Progress Note (short form) - Note Progress Note: no complaints Vital Signs Period Temp Pulse Resp BP Sys/Lock Pulse Ox Last 24 Hr 98.1 F-98.5 F 60-71 20-20 127-153/66-83 cor-rrr lungs clear abd soft,nt ext no edema CBC, BMP 10/31/16 06:25 10/31/16 06:25 Microbiology 10/29/16 21:00 Blood - Peripheral Venous Blood Culture - Preliminary NO GROWTH OBTAINED AFTER 96 HOURS, INCUBATION TO CONTINUE FOR 1 DAYS. 10/29/16 12:49 Blood - Peripheral Venous Blood Culture - Preliminary NO GROWTH OBTAINED AFTER 96 HOURS, INCUBATION TO CONTINUE FOR 1 DAYS. 10/29/16 12:07 Urine - Urine Clean Catch Urine Culture - Final Klebsiella Pneumoniae - Esbl a/p bladder cancer-on BCG treatment kleb esbl uti- day #5 of 14 antibiotics (ertapenem) will need picc line and treatment for two weeks d/w patient she is upset but understands the rationale for the treatment should have urine culture repeated after antibiotics are compltete we are available if needed in the office [phone] suspect PMD or can obtain culture treatment added probiotics wt loss- f/u with oncology check TSH still smoking! Problem List - Problems (1) UTI (urinary tract infection) Code(s): N39.0 - URINARY TRACT INFECTION, SITE NOT SPECIFIED Qualifiers: Urinary tract infection type: acute cystitis Hematuria presence: without hematuria Qualified Code(s): N30.00 - Acute cystitis without hematuria (2) Bladder cancer Code(s): C67.9 - MALIGNANT NEOPLASM OF BLADDER, UNSPECIFIED Qualifiers: Bladder location: unspecified site Qualified Code(s): C67.9 - Malignant neoplasm of bladder, unspecified
--- NOTE | 2016-11-03 10:37 | DS ---
Physical Examination Vital Signs: Vital Signs Temperature 98.5 F 11/03/16 09:06 Pulse Rate 63 11/03/16 09:06 Respiratory Rate 20 11/03/16 09:06 Blood Pressure 141/74 11/03/16 09:06 O2 Sat by Pulse Oximetry (%) 95 10/31/16 21:00 Findings/Remarks: TALKING ON PHONE WITH NO DISTRESS UNDERSTANDS THAT DC PLANNING FOR TODAY Constitutional: Yes: Calm Cardiovascular: Yes: Regular Rate and Rhythm, S1, S2 Respiratory: Yes: CTA Bilaterally Gastrointestinal: Yes: Normal Bowel Sounds, Soft Edema: No Labs: CBC, BMP 10/31/16 06:25 10/31/16 06:25 Discharge Summary Reason For Visit: BLADDER CA,UTI Current Active Problems Bladder cancer (Acute) COPD (chronic obstructive pulmonary disease) (Acute) ESBL (extended spectrum beta-lactamase) producing bacteria infection (Acute) H/O acute myocardial infarction (Acute) HTN (hypertension) (Acute) Prediabetes (Acute) UTI (urinary tract infection) (Acute) Weight loss (Acute) Hospital Course: (1) Bladder cancer Code(s): C67.9 - MALIGNANT NEOPLASM OF BLADDER, UNSPECIFIED Qualifiers: Bladder location: unspecified site Qualified Code(s): C67.9 - Malignant neoplasm of bladder, unspecified TCC bladder cancer-on BCG treatment ONCOLOGY FOLLOW UP (2) COPD (chronic obstructive pulmonary disease) Code(s): J44.9 - CHRONIC OBSTRUCTIVE PULMONARY DISEASE, UNSPECIFIED APPRECIATE PULM CONSULT SMOKING CESSATION ED GIVEN (3) HTN (hypertension) Code(s): I10 - ESSENTIAL (PRIMARY) HYPERTENSION (4) UTI (urinary tract infection) Code(s): N39.0 - URINARY TRACT INFECTION, SITE NOT SPECIFIED Qualifiers: Urinary tract infection type: acute cystitis Hematuria presence: without hematuria Qualified Code(s): N30.00 - Acute cystitis without hematuria FAILED ON PO ABX OUTPATIENT FOR PICC TODAY APPRECIATE ID CONSULT -> kleb esbl uti- day #5 of 14 antibiotics (ertapenem) will need picc line and treatment for two weeks should have urine culture repeated after antibiotics are compltete we are available if needed in the office [phone] suspect PMD or can obtain culture treatment (5) ESBL (extended spectrum beta-lactamase) producing bacteria infection Code(s): A49.9 - BACTERIAL INFECTION, UNSPECIFIED Z16.12 - EXTENDED SPECTRUM BETA LACTAMASE (ESBL) RESISTANCE DISCHARGE S/P PICC WITH HOME SERVICES NEEDS PCP F/U IN 1 WEEK [employer] [facility] Condition: Stable - Instructions Referrals: Khanh Gutiérrez MD [Primary Care Provider] - Disposition: HOME - Home Medications Comprehensive Discharge Medication List: Ambulatory Orders Albuterol Sulfate [Proair Respiclick] 1 mcg IH DAILY PRN 05/08/16 Amlodipine Besylate 10 mg PO DAILY 05/08/16 Atorvastatin Ca [Lipitor] 80 mg PO DAILY 05/08/16 Losartan Potassium 100 mg PO DAILY 05/08/16 Tiotropium [place] [Spiriva] 1 inh PO DAILY 05/08/16 Clopidogrel Bisulfate [Plavix -] 75 mg PO DAILY #0 05/12/16 Fluticasone/Salmeterol [Advair 250-50 Diskus] 1 each IH BID 09/09/16
--- NOTE | 2016-11-03 12:30 | EKG ---
Test Reason : Blood Pressure : / mmHG Vent. Rate : 058 BPM Atrial Rate : 058 BPM P-R Int : 178 ms QRS Dur : 100 ms QT Int : 446 ms P-R-T Axes : 060 018 088 degrees QTc Int : 437 ms SINUS BRADYCARDIA WITH PREMATURE ATRIAL COMPLEXES NONSPECIFIC T WAVE ABNORMALITY ABNORMAL ECG WHEN COMPARED WITH ECG OF 22-JAN-2010 15:28, PREMATURE ATRIAL COMPLEXES ARE NOW PRESENT VENT. RATE HAS DECREASED Confirmed by MORIAH SINGH, SHRUTHI ([id number]) on 11/03/2016 12:30:16 PM Referred By: DELFINO ROSS Confirmed By:SHRUTHI MAJOR MD
--- NOTE | 2016-11-03 16:09 | CONSULT ---
Consult Consult Specialty:: Nephrology Reason for Consultation:: azotemia - History of Present Illness Chief Complaint: sent in for UTI History of Present Illness: Pt is a 71 year old female with pmhx of bladder cancer being treated with BCG, HTN, LA, COPD and pre-DM who was sent in for treatment of UTI. She was on PO levaquin and PO bactrim, both of which did not clear up the infection. She then says she was getting and injection antibiotic twice daily for 5 days and that did not help. She was found to have Klebsiella in the urine. I was called to evaluate her for elevated creatinine. She denies history of CKD. She denies NSAID use. She is awake and alert. - History Source History Provided By: Patient, Medical Record - Past Medical History Cardio/Vascular: Yes: CAD, Hyperlipdemia Pulmonary: Yes: COPD Renal/: Yes: Other (bladder cancer) ...: No Heme/Onc: Yes: Other (bladder cancer) - Alcohol/Substance Use Hx Alcohol Use: No - Smoking History Smoking history: Current every day smoker Have you smoked in the past 12 months: Yes Aproximately how many cigarettes per day: 20 Home Medications - Allergies Allergies/Adverse Reactions: Allergies Allergy/AdvReac Type Severity Reaction Status Date / Time No Known Drug Allergies Allergy Verified 10/29/16 10:21 - Home Medications Home Medications: Ambulatory Orders Albuterol Sulfate [Proair Respiclick] 1 mcg IH DAILY PRN 05/08/16 Amlodipine Besylate 10 mg PO DAILY 05/08/16 Losartan Potassium 100 mg PO DAILY 05/08/16 Clopidogrel Bisulfate [Plavix -] 75 mg PO DAILY #0 05/12/16 Fluticasone/Salmeterol [Advair 250-50 Diskus] 1 each IH BID 09/09/16 Aclidinium [place] [Tudorza -] 1 puff IH BID inhaler 11/03/16 Atorvastatin Ca [Lipitor] 80 mg PO HS tablet 11/03/16 Citalopram Hydrobromide [Celexa -] 5 mg PO DAILY #30 tablet 11/03/16 Diphenhydramine HCl [Benadryl Capsule -] 25 mg PO Q6H PRN #20 capsule 11/03/16 Ertapenem Sodium [Invanz -] 1 gm IVPB DAILY #9 vial 11/03/16 Lactobacillus Acidophilus [Bacid -] 1 tab PO BID #60 tab 11/03/16 Nicotine Patch [Nicoderm Patch -] 21 mg TD DAILY #30 patch 11/03/16 Family Disease History - Family Disease History Family History: Denies Review of Systems - Review of Systems Constitutional: reports: No Symptoms Eyes: reports: No Symptoms HENT: reports: No Symptoms Neck: reports: No Symptoms Cardiovascular: reports: No Symptoms Respiratory: reports: No Symptoms Gastrointestinal: reports: No Symptoms Genitourinary: reports: No Symptoms Musculoskeletal: reports: No Symptoms Integumentary: reports: No Symptoms Neurological: reports: No Symptoms Endocrine: reports: No Symptoms Hematology/Lymphatic: reports: No Symptoms Psychiatric: reports: No Symptoms Physical Exam Vital Signs: Vital Signs Temperature 98.5 F 11/03/16 09:06 Pulse Rate 63 11/03/16 09:06 Respiratory Rate 20 11/03/16 09:06 Blood Pressure 141/74 11/03/16 09:06 O2 Sat by Pulse Oximetry (%) 95 10/31/16 21:00 Constitutional: Yes: Calm Eyes: Yes: Conjunctiva Clear HENT: Yes: Atraumatic Neck: Yes: Supple Cardiovascular: Yes: S1, S2 Respiratory: Yes: CTA Bilaterally Gastrointestinal: Yes: Normal Bowel Sounds, Soft Breast(s): Yes: WNL Extremities: Yes: WNL Edema: No Neurological: Yes: Oriented Psychiatric: Yes: Oriented Labs: CBC, BMP 10/31/16 06:25 10/31/16 06:25 Laboratory Tests 10/29/16 10/29/16 10/30/16 11:39 12:00 07:30 WBC Sodium Potassium Chloride Carbon Dioxide Anion Gap BUN Creatinine 1.1 H 1.1 H Urine Color Yellow Urine Appearance Turbid Urine pH 5.0 Ur Specific [place] 1.016 Urine Protein 1+ H Urine Glucose (UA) Negative Urine Ketones Negative Urine Blood 1+ H Urine Nitrite Positive Urine Bilirubin Negative Urine Urobilinogen Negative Ur Leukocyte Esterase 3+ H Urine RBC 8 Urine WBC 933 Ur Epithelial Cells Rare Urine Bacteria Few Urine Mucus Rare 10/31/16 10/31/16 06:25 06:25 WBC 7.9 Sodium 141 Potassium 4.5 Chloride 106 Carbon Dioxide 29 Anion Gap 6 L BUN 20 H Creatinine 1.0 Urine Color Urine Appearance Urine pH Ur Specific [place] Urine Protein Urine Glucose (UA) Urine Ketones Urine Blood Urine Nitrite Urine Bilirubin Urine Urobilinogen Ur Leukocyte Esterase Urine RBC Urine WBC Ur Epithelial Cells Urine Bacteria Urine Mucus Imaging - Results Chest X-ray: Report Reviewed Cat Scan: Report Reviewed (stable left adrenal mass. no evidence of metastatic disease) Problem List - Problems (1) Bladder cancer Code(s): C67.9 - MALIGNANT NEOPLASM OF BLADDER, UNSPECIFIED Qualifiers: Bladder location: unspecified site Qualified Code(s): C67.9 - Malignant neoplasm of bladder, unspecified (2) COPD (chronic obstructive pulmonary disease) Code(s): J44.9 - CHRONIC OBSTRUCTIVE PULMONARY DISEASE, UNSPECIFIED (3) ESBL (extended spectrum beta-lactamase) producing bacteria infection Code(s): A49.9 - BACTERIAL INFECTION, UNSPECIFIED Z16.12 - EXTENDED SPECTRUM BETA LACTAMASE (ESBL) RESISTANCE (4) HTN (hypertension) Code(s): I10 - ESSENTIAL (PRIMARY) HYPERTENSION (5) Prediabetes Code(s): R73.09 - OTHER ABNORMAL GLUCOSE (6) UTI (urinary tract infection) Code(s): N39.0 - URINARY TRACT INFECTION, SITE NOT SPECIFIED Qualifiers: Urinary tract infection type: acute cystitis Hematuria presence: without hematuria Qualified Code(s): N30.00 - Acute cystitis without hematuria Assessment/Plan Current Medications Generic Name Dose Route Start Last Admin Trade Name Freq PRN Reason Stop Dose Admin Aclidinium [place] 1 puff 10/29/16 22:00 11/03/16 10:22 Tudorza - IH 1 puff BID ALFA Administration Albuterol Sulfate 1 amp 10/29/16 12:23 11/01/16 20:05 Ventolin 0.083% Nebulizer Soln - NEB 1 amp Q4H PRN Administration SHORT OF BREATH/WHEEZING Amlodipine Besylate 10 mg 10/30/16 10:00 11/03/16 10:10 Norvasc - PO 10 mg DAILY ALFA Administration Atorvastatin Calcium 80 mg 10/29/16 22:00 11/02/16 21:47 Lipitor - PO 80 mg HS ALFA Administration Budesonide/Formoterol Fumarate 2 puff 10/29/16 22:00 11/03/16 10:21 Symbicort 80/4.5mcg - IH 2 puff BID ALFA Administration Citalopram Hydrobromide 5 mg 11/01/16 10:30 11/03/16 10:10 Celexa - PO 5 mg DAILY ALFA Administration Clopidogrel Bisulfate 75 mg 10/30/16 10:00 11/03/16 09:06 Plavix - PO Not Given DAILY ALFA Diphenhydramine HCl 25 mg 11/01/16 10:20 Benadryl - PO Q6H PRN FOR ITCHING Heparin Sodium (Porcine) 5,000 unit 10/29/16 22:00 11/03/16 09:06 Heparin - SQ Not Given BID ALFA Ertapenem 1 gm/ Sodium 50 mls @ 50 mls/hr 10/31/16 15:45 11/03/16 10:11 Chloride IVPB 50 mls/hr DAILY ALFA Administration Lactobacillus Acidophilus 1 tab 11/03/16 22:00 Bacid - PO BID ALFA Losartan Potassium 100 mg 10/30/16 10:00 11/03/16 10:10 Cozaar - PO 100 mg DAILY ALFA Administration Nicotine 21 mg 11/01/16 10:30 11/03/16 10:11 Nicoderm Patch - TD 21 mg DAILY ALFA Administration Impression 1. azotemia - likely related to infection 2. UTI 3. HTN 4. CAD 5. COPD 6. hyperlipidemia 7. bladder cancer Plan - renal function is stabilizing - abx per ID - encourage PO hydration - can see pt in office - no further inpt workup, pt would prefer to go home and get her workup as outpt as needed - will follow while in hospital Dr Herring
[2016-11-03] MEDS: ATORVASTATIN CA 80 MG TABLET (FP) PO SCH (22:08)
[2016-11-04] MEDS ORDERED: PT OWN MED DRAWER 7, Y5N ONE (10:08)
[2016-11-04] MEDS: LACTOBACILLUS ACIDOPHILUS 1 EACH TAB (FP) PO SCH (10:13)
[2016-11-04] MEDS: HEPARIN NA (PORCINE) 5,000 UNITS/ML 1ML VIAL SQ SCH (10:14)
[2016-11-04] MEDS: CITALOPRAM HYDROBROMIDE 10 MG TABLET (FP) PO SCH (10:14)
[2016-11-04] MEDS: LOSARTAN POTASSIUM 50 MG TABLET (FP) PO SCH (10:14)
[2016-11-04] MEDS: NICOTINE 21 MG/24 HOURS TOPICAL PATCH TD SCH (10:15)
[2016-11-04] MEDS: amLODIPine BESYLATE 10 MG TABLET (FP) PO SCH (10:15)
[2016-11-04] MEDS: ERTAPENEM SODIUM 1 GM in SODIUM CHLORIDE 50 ML IVPB SCH (10:15)
[2016-11-04] MEDS: ACLIDINIUM BROMIDE 400 MCG/INH AERO.POWD IH SCH (10:16)
[2016-11-04] MEDS: CLOPIDOGREL BISULFATE 75 MG TABLET (FP) PO SCH (10:16)
[2016-11-04] MEDS: BUDESONIDE/FORMETEROL FUMARATE 80/4.5 mcg INHALER IH SCH (10:16)
--- NOTE | 2016-11-04 12:35 | PN ---
Progress Note, Physician History of Present Illness: Pt seen and examined at bedside. She is awake and alert. She denies dysuria or hematuria. - Current Medication List Current Medications: Active Medications Aclidinium [place] (Tudorza -) 1 puff IH BID [facility] Last Admin: 11/04/16 10:16 Dose: 1 puff Albuterol Sulfate (Ventolin 0.083% Nebulizer Soln -) 1 amp NEB Q4H PRN PRN Reason: SHORT OF BREATH/WHEEZING Last Admin: 11/01/16 20:05 Dose: 1 amp Amlodipine Besylate (Norvasc -) 10 mg PO DAILY [facility] Last Admin: 11/04/16 10:15 Dose: 10 mg Atorvastatin Calcium (Lipitor -) 80 mg PO HS [facility] Last Admin: 11/03/16 22:08 Dose: 80 mg Budesonide/Formoterol Fumarate (Symbicort 80/4.5mcg -) 2 puff IH BID [facility] Last Admin: 11/04/16 10:16 Dose: 2 puff Citalopram Hydrobromide (Celexa -) 5 mg PO DAILY [facility] Last Admin: 11/04/16 10:14 Dose: 5 mg Clopidogrel Bisulfate (Plavix -) 75 mg PO DAILY [facility] Last Admin: 11/04/16 10:16 Dose: 75 mg Diphenhydramine HCl (Benadryl -) 25 mg PO Q6H PRN PRN Reason: FOR ITCHING Heparin Sodium (Porcine) (Heparin -) 5,000 unit SQ BID [facility] Last Admin: 11/04/16 10:14 Dose: 5,000 unit Ertapenem 1 gm/ Sodium (Chloride) 50 mls @ 50 mls/hr IVPB DAILY [facility] Last Admin: 11/04/16 10:15 Dose: 50 mls/hr Lactobacillus Acidophilus (Bacid -) 1 tab PO BID [facility] Last Admin: 11/04/16 10:13 Dose: 1 tab Losartan Potassium (Cozaar -) 100 mg PO DAILY [facility] Last Admin: 11/04/16 10:14 Dose: 100 mg Nicotine (Nicoderm Patch -) 21 mg TD DAILY [facility] Last Admin: 11/04/16 10:15 Dose: 21 mg - Objective Vital Signs: Vital Signs Temperature 98.6 F 11/04/16 08:48 Pulse Rate 64 11/04/16 08:48 Respiratory Rate 20 11/04/16 08:48 Blood Pressure 149/72 11/04/16 08:48 O2 Sat by Pulse Oximetry (%) 97 11/03/16 21:00 Constitutional: Yes: Calm Eyes: Yes: Conjunctiva Clear HENT: Yes: Atraumatic Neck: Yes: Supple Cardiovascular: Yes: S1, S2 Respiratory: Yes: CTA Bilaterally Gastrointestinal: Yes: Normal Bowel Sounds, Soft Genitourinary: Yes: WNL Musculoskeletal: Yes: WNL Edema: No Neurological: Yes: Oriented Psychiatric: Yes: Oriented Labs: CBC, BMP 10/31/16 06:25 10/31/16 06:25 INR, PTT INR 0.91 (0.82-1.09) 10/29/16 11:39 Problem List - Problems (1) Bladder cancer Code(s): C67.9 - MALIGNANT NEOPLASM OF BLADDER, UNSPECIFIED Qualifiers: Bladder location: unspecified site Qualified Code(s): C67.9 - Malignant neoplasm of bladder, unspecified (2) COPD (chronic obstructive pulmonary disease) Code(s): J44.9 - CHRONIC OBSTRUCTIVE PULMONARY DISEASE, UNSPECIFIED (3) ESBL (extended spectrum beta-lactamase) producing bacteria infection Code(s): A49.9 - BACTERIAL INFECTION, UNSPECIFIED Z16.12 - EXTENDED SPECTRUM BETA LACTAMASE (ESBL) RESISTANCE (4) HTN (hypertension) Code(s): I10 - ESSENTIAL (PRIMARY) HYPERTENSION (5) Prediabetes Code(s): R73.09 - OTHER ABNORMAL GLUCOSE (6) UTI (urinary tract infection) Code(s): N39.0 - URINARY TRACT INFECTION, SITE NOT SPECIFIED Qualifiers: Urinary tract infection type: acute cystitis Hematuria presence: without hematuria Qualified Code(s): N30.00 - Acute cystitis without hematuria Assessment/Plan Current Medications Generic Name Dose Route Start Last Admin Trade Name Freq PRN Reason Stop Dose Admin Aclidinium [place] 1 puff 10/29/16 22:00 11/04/16 10:16 Tudorza - IH 1 puff BID ALFA Administration Albuterol Sulfate 1 amp 10/29/16 12:23 11/01/16 20:05 Ventolin 0.083% Nebulizer Soln - NEB 1 amp Q4H PRN Administration SHORT OF BREATH/WHEEZING Amlodipine Besylate 10 mg 10/30/16 10:00 11/04/16 10:15 Norvasc - PO 10 mg DAILY ALFA Administration Atorvastatin Calcium 80 mg 10/29/16 22:00 11/03/16 22:08 Lipitor - PO 80 mg HS ALFA Administration Budesonide/Formoterol Fumarate 2 puff 10/29/16 22:00 11/04/16 10:16 Symbicort 80/4.5mcg - IH 2 puff BID ALFA Administration Citalopram Hydrobromide 5 mg 11/01/16 10:30 11/04/16 10:14 Celexa - PO 5 mg DAILY ALFA Administration Clopidogrel Bisulfate 75 mg 10/30/16 10:00 11/04/16 10:16 Plavix - PO 75 mg DAILY ALFA Administration Diphenhydramine HCl 25 mg 11/01/16 10:20 Benadryl - PO Q6H PRN FOR ITCHING Heparin Sodium (Porcine) 5,000 unit 10/29/16 22:00 11/04/16 10:14 Heparin - SQ 5,000 unit BID ALFA Administration Ertapenem 1 gm/ Sodium 50 mls @ 50 mls/hr 10/31/16 15:45 11/04/16 10:15 Chloride IVPB 50 mls/hr DAILY ALFA Administration Lactobacillus Acidophilus 1 tab 11/03/16 22:00 11/04/16 10:13 Bacid - PO 1 tab BID ALFA Administration Losartan Potassium 100 mg 10/30/16 10:00 11/04/16 10:14 Cozaar - PO 100 mg DAILY ALFA Administration Nicotine 21 mg 11/01/16 10:30 11/04/16 10:15 Nicoderm Patch - TD 21 mg DAILY ALFA Administration Impression 1. azotemia - likely related to infection/CKD stage 3 2. UTI 3. HTN 4. CAD 5. COPD 6. hyperlipidemia 7. bladder cancer Plan - renal function is stable - can keep on losartan - can follow as outpt - recommend PO hydration - abx per ID - monitor renal function - will follow PRN Dr Herring
[2016-11-04 13:58] VITALS: BP 119/62; PULSE 63; TEMP 98.3
== END 2016-11-04 16:49 | disposition home or self-care (01) | DRG 687 ==
LOC: JER 10:16 → JERBED 12:43 → J6S 15:45 → J8W 10-31 14:35
PROVIDERS: ADMIT Family Medicine; ATTEND Family Medicine
PROC: 02HV33Z Insertion of Infusion Device into Superior Vena Cava, Percutaneous Approach (ICD-10-PCS; principal; 2016-11-03)
DX: C67.9 Malignant neoplasm of bladder, unspecified (principal); N39.0 Urinary tract infection, site not specified; I50.32 Chronic diastolic (congestive) heart failure; F17.200 Nicotine dependence, unspecified, uncomplicated; E78.5 Hyperlipidemia, unspecified; J44.9 Chronic obstructive pulmonary disease, unspecified; I25.10 Atherosclerotic heart disease of native coronary artery without angina pectoris; I25.2 Old myocardial infarction; R73.03 Prediabetes; R63.4 Abnormal weight loss; Z68.20 Body mass index [BMI] 20.0-20.9, adult; A49.9 Bacterial infection, unspecified; I27.2 Other secondary pulmonary hypertension; R07.89 Other chest pain; I11.0 Hypertensive heart disease with heart failure; Z16.12 Extended spectrum beta lactamase (ESBL) resistance
CPT/HCPCS: 36415; 36569; 71010-TC; 74177-TC; 77001-TC; 80053; 81003; 81015; 82550; 82553; 83605; 84443; 84484; 85025; 85610; 85730; 87040; 87086; 87186; 93005; 93010; 94640; 99283-25; C1751; J1644; Q9967

== ENCOUNTER 2016-11-05 09:34 | Day surgery (SDC) | payer OTHER, MEDICARE ==
[2016-11-05] MEDS ORDERED: ERTAPENEM SODIUM 1 GM in SODIUM CHLORIDE 50 ML IVPB ONE (10:45)
[2016-11-05 11:12] VITALS: TEMP 97.6
[2016-11-05 12:02] VITALS: BP 135/65; PULSE 72
== END 2016-11-05 14:03 | disposition home or self-care (01) ==
LOC: JINFUSION 09:34 → J7W 09:34 → JINFUSION 14:03
PROVIDERS: ATTEND Family Medicine
DX: N39.0 Urinary tract infection, site not specified (principal); C67.9 Malignant neoplasm of bladder, unspecified; A49.9 Bacterial infection, unspecified
CPT/HCPCS: 96365

== ENCOUNTER 2016-11-06 09:22 | Day surgery (SDC) | payer OTHER, MEDICARE ==
[2016-11-06 10:43] VITALS: BP 122/62; PULSE 69; TEMP 98.2
[2016-11-06 10:54] VITALS: BMI 20.7
[2016-11-06] MEDS ORDERED: ERTAPENEM SODIUM 1 GM in SODIUM CHLORIDE 50 ML IVPB ONE (11:00)
== END 2016-11-06 14:50 | disposition home or self-care (01) ==
LOC: JINFUSION 09:22 → J7W 09:22 → JINFUSION 14:50
PROVIDERS: ATTEND Family Medicine
DX: N39.0 Urinary tract infection, site not specified (principal); C67.9 Malignant neoplasm of bladder, unspecified; A49.9 Bacterial infection, unspecified
CPT/HCPCS: 96365; 96366

== ENCOUNTER 2016-11-07 09:13 | Day surgery (SDC) | payer OTHER, MEDICARE ==
[2016-11-07] MEDS ORDERED: ERTAPENEM SODIUM 1 GM in SODIUM CHLORIDE 50 ML IVPB ONE (10:00)
[2016-11-07 11:39] VITALS: TEMP 97.7
[2016-11-07 11:41] VITALS: BP 130/58; PULSE 67
== END 2016-11-07 11:30 | disposition home or self-care (01) ==
LOC: JINFUSION 09:13 → J7W 09:14 → JINFUSION 11:30
PROVIDERS: ATTEND Family Medicine
DX: N39.0 Urinary tract infection, site not specified (principal); C67.9 Malignant neoplasm of bladder, unspecified; A49.9 Bacterial infection, unspecified
CPT/HCPCS: 96365

== ENCOUNTER 2016-11-08 09:10 | Day surgery (SDC) | payer OTHER, MEDICARE ==
[2016-11-08] MEDS ORDERED: ERTAPENEM SODIUM 1 GM in SODIUM CHLORIDE 50 ML IVPB ONE (10:00)
[2016-11-08 11:50] VITALS: BP 128/61; PULSE 71; TEMP 98
== END 2016-11-08 16:04 | disposition home or self-care (01) ==
LOC: JINFUSION 09:10 → J7W 09:11 → JINFUSION 16:04
PROVIDERS: ATTEND Family Medicine
DX: N39.0 Urinary tract infection, site not specified (principal); C67.9 Malignant neoplasm of bladder, unspecified; A49.9 Bacterial infection, unspecified
CPT/HCPCS: 96365

== ENCOUNTER 2016-11-09 08:52 | Day surgery (SDC) | payer OTHER, MEDICARE ==
[2016-11-09] MEDS ORDERED: ERTAPENEM SODIUM 1 GM in SODIUM CHLORIDE 50 ML IVPB ONE (09:15)
[2016-11-09 14:30] VITALS: TEMP 97.8
[2016-11-09 14:34] VITALS: BP 134/57; PULSE 69
== END 2016-11-09 11:30 | disposition home or self-care (01) ==
LOC: JINFUSION 08:52 → J7W 08:52 → JINFUSION 11:30
PROVIDERS: ATTEND Family Medicine
DX: N39.0 Urinary tract infection, site not specified (principal); C67.9 Malignant neoplasm of bladder, unspecified; A49.9 Bacterial infection, unspecified
CPT/HCPCS: 96365

== ENCOUNTER 2016-11-10 09:05 | Day surgery (SDC) | payer OTHER, MEDICARE ==
[2016-11-10] MEDS ORDERED: ERTAPENEM SODIUM 1 GM in SODIUM CHLORIDE 50 ML IVPB ONE (09:30)
[2016-11-10 13:56] VITALS: TEMP 98; BMI 20.9
[2016-11-10 14:04] VITALS: BP 123/69; PULSE 68
== END 2016-11-10 12:46 | disposition home or self-care (01) ==
LOC: JINFUSION 09:05 → J7W 09:06 → JINFUSION 12:46
PROVIDERS: ATTEND Family Medicine
DX: N39.0 Urinary tract infection, site not specified (principal); C67.9 Malignant neoplasm of bladder, unspecified; A49.9 Bacterial infection, unspecified
CPT/HCPCS: 96365

== ENCOUNTER 2016-11-11 08:47 | Day surgery (SDC) | payer OTHER, MEDICARE ==
[2016-11-11 09:58] VITALS: BMI 20.7
[2016-11-11] MEDS ORDERED: ERTAPENEM SODIUM 1 GM in SODIUM CHLORIDE 50 ML IVPB ONE (11:00)
[2016-11-11 14:23] VITALS: BP 132/72; PULSE 68; TEMP 98.3
== END 2016-11-11 13:35 | disposition home or self-care (01) ==
LOC: J7W 08:47 → JINFUSION 08:47
PROVIDERS: ATTEND Family Medicine
DX: N39.0 Urinary tract infection, site not specified (principal); C67.9 Malignant neoplasm of bladder, unspecified; A49.9 Bacterial infection, unspecified
CPT/HCPCS: 96365

== ENCOUNTER 2016-11-12 09:27 | Day surgery (SDC) | payer OTHER, MEDICARE ==
[2016-11-12] MEDS ORDERED: ERTAPENEM SODIUM 1 GM in SODIUM CHLORIDE 50 ML IVPB ONE (10:15)
[2016-11-12 10:32] VITALS: BP 100/51; PULSE 70; TEMP 98.6; BMI 20.7
== END 2016-11-12 12:26 | disposition home or self-care (01) ==
LOC: JINFUSION 09:27 → J7W 09:28 → JINFUSION 12:26
PROVIDERS: ATTEND Family Medicine
DX: N39.0 Urinary tract infection, site not specified (principal); C67.9 Malignant neoplasm of bladder, unspecified; A49.9 Bacterial infection, unspecified
CPT/HCPCS: 96365

== ENCOUNTER 2016-11-13 09:02 | Day surgery (SDC) | payer OTHER, MEDICARE ==
[2016-11-13] MEDS ORDERED: ERTAPENEM SODIUM 1 GM in SODIUM CHLORIDE 50 ML IVPB ONE (10:15)
[2016-11-13 10:33] VITALS: TEMP 98.3
[2016-11-13 11:35] VITALS: BP 131/61; PULSE 64
== END 2016-11-13 12:35 | disposition home or self-care (01) ==
LOC: JINFUSION 09:02 → J7W 09:03 → JINFUSION 12:35
PROVIDERS: ATTEND Family Medicine
DX: N39.0 Urinary tract infection, site not specified (principal)
CPT/HCPCS: 96365

== ENCOUNTER 2018-04-19 13:51 | Inpatient (IN) | payer OTHER, MEDICARE ==
[2018-04-19 14:07] VITALS: BMI 20.2
--- NOTE | 2018-04-19 14:25 | PDOC ---
History of Present Illness - General Chief Complaint: Shortness of Breath Stated Complaint: SOB Time Seen by Provider: 04/19/18 14:21 History Source: Patient Exam Limitations: No Limitations - History of Present Illness Initial Comments: 04/19/18 14:25 The patient is a 71-year-old woman with a significant past medical history of bladder Ca (currently receiving BCG treatments), hypertension, myocardial infarction, chronic obstructive pulmonary disease pre-diabetes who presents to the emergency department after 4 days of increasing shortness of breath with coughing yellow sputum. Saturating at 76% in triage , received 1 duoneb. Past History - Past Medical History Allergies/Adverse Reactions: Allergies Allergy/AdvReac Type Severity Reaction Status Date / Time No Known Drug Allergies Allergy Verified 04/19/18 14:01 Home Medications: Ambulatory Orders Albuterol Sulfate [Proair Respiclick] 1 mcg IH DAILY PRN 05/08/16 Amlodipine Besylate 10 mg PO DAILY 05/08/16 Losartan Potassium 100 mg PO DAILY 05/08/16 Clopidogrel Bisulfate [Plavix -] 75 mg PO DAILY #0 05/12/16 Fluticasone/Salmeterol [Advair 250-50 Diskus] 1 each IH BID 09/09/16 Aclidinium [place] [Tudorza -] 1 puff IH BID inhaler 11/03/16 Atorvastatin Ca [Lipitor] 80 mg PO HS tablet 11/03/16 Diphenhydramine HCl [Benadryl Capsule -] 25 mg PO Q6H PRN #20 capsule 11/03/16 Ertapenem Sodium [Invanz -] 1 gm IVPB DAILY #9 vial 11/03/16 Lactobacillus Acidophilus [Bacid -] 1 tab PO BID #60 tab 11/03/16 Nicotine Patch [Nicoderm Patch -] 21 mg TD DAILY #30 patch 11/03/16 Asthma: Yes (copd) Cancer: Yes (bladder) Cardiac Disorders: Yes ([place] 2007, stents 2008) CVA: No COPD: Yes (uses 02 3l prn) CHF: No Dementia: No Diabetes: No (pre diabetic) GI Disorders: No Disorders: Yes (turbt) HTN: Yes Hypercholesterolemia: No Liver Disease: No Seizures: No Thyroid Disease: No - Surgical History Abdominal Surgery: No Appendectomy: No Cardiac Surgery: Yes (STENTS 2008) Cholecystectomy: No Lung Surgery: No Neurologic Surgery: No Orthopedic Surgery: Yes (GANGLION CYST) - Suicide/Smoking/Psychosocial Hx Smoking History: Current every day smoker Have you smoked in the past 12 months: Yes Number of Cigarettes Smoked Daily: 20 Information on smoking cessation initiated: No 'Breaking Loose' booklet given: 11/06/16 Hx Alcohol Use: No Drug/Substance Use Hx: No Hx Substance Use Treatment: No Review of Systems - Review of Systems Able to Perform ROS?: Yes Is the patient limited Latvian proficient: No Constitutional: Yes: Other (cyanotic lips) HEENTM: No: See HPI Respiratory: Yes: Cough, SOB at Rest, Productive cough Cardiac (ROS): No: Symptoms Reported ABD/GI: No: Symptoms Reported Neurological: No: Symptoms reported All Other Systems: Reviewed and Negative *Physical Exam - Vital Signs Last Vital Signs Temp Pulse Resp BP Pulse Ox 98.9 F 95 H 29 H 146/67 79 L 04/19/18 14:01 04/19/18 14:01 04/19/18 14:01 04/19/18 14:01 04/19/18 14:01 - Physical Exam General Appearance: Yes: Nourished, Appropriately Dressed, Cachetic. No: Apparent Distress HEENT: positive: EOMI, EVELIN, Normal ENT Inspection Respiratory/Chest: positive: Decreased Breath Sounds, Hyperresonant. negative: Chest Tender Cardiovascular: positive: Regular Rhythm, S1, S2, Tachycardia Gastrointestinal/Abdominal: positive: Normal Bowel Sounds, Flat, Soft. negative : Tender Musculoskeletal: positive: Normal Inspection. negative: CVA Tenderness Integumentary: positive: Normal Color, Dry, Warm Neurologic: positive: Fully Oriented, Alert, Normal Mood/Affect ED Treatment Course - LABORATORY CBC & Chemistry Diagram: 04/19/18 15:15 - RADIOLOGY Radiology Studies Ordered: Category Date Time Status CHEST PA & LAT [RAD] Stat Radiology 04/19/18 14:24 Ordered Medical Decision Making - Medical Decision Making 04/19/18 15:09 Given addition duoneb treatment and prednisone, basic labs, ABG and CXR. Pneumonia vs COPD exacerbation Patient is worried and scared about her state of nenita 04/19/18 18:22 Admitted for COPD exacerbation. *DC/Admit/Observation/Transfer Diagnosis at time of Disposition: COPD exacerbation - Discharge Dispostion Decision to Admit order: Yes - Referrals - Patient Instructions - Post Discharge Activity
[2018-04-19] MEDS ORDERED: ALBUTEROL SO4 2.5/IPRATROPIUM 0.5 INH SOL 3 ML VIAL.NEB. NEB ONE ×3 (14:43→19:00)
[2018-04-19] MEDS ORDERED: MAGNESIUM SULF 50% (8.12 MEQ/2 ML-1 GM VIAL) IVPB ONE (14:43)
[2018-04-19] MEDS ORDERED: predniSONE 20 MG TABLET (UD) PO ONE (15:04)
[2018-04-19 15:32] LABS: ARTERIAL BLD GAS O2 SATURATION 84.3 % (90-98.9); ARTERIAL BLOOD GAS BASE EXCESS 10.6 meq/l (-2-2); CARBOXYHEMOGLOBIN 3.7 gm% (0.5-2.0)
[2018-04-19] MEDS ORDERED: predniSONE 20 MG TABLET (UD) ONE (15:37)
[2018-04-19 15:40] LABS: BASO % 0.7 % (0-2.0); EOS % 1.2 % (0-4.5); HEMATOCRIT 55.1 % (32.4-45.2); HEMOGLOBIN 18.2 GM/dL (10.7-15.3); LYMPH % 11.8 % (8-40); MCH 31.2 pg (25.7-33.7); MEAN CELL VOLUME 94.4 fl (80-96); MEAN PLT VOLUME 7.4 fl (7.5-11.1); MONO % 7.3 % (3.8-10.2); PLATELET COUNT 195 K/MM3 (134-434); RBC 5.84 M/mm3 (3.60-5.2); RDW 15.4 % (11.6-15.6); WHITE BLOOD COUNT 8.5 K/mm3 (4.0-10.0)
[2018-04-19 15:57] LABS: ARTERIAL BLOOD GAS PCO2 65.2 mmHg (35-45); ARTERIAL BLOOD GAS PO2 49.6 mmHg (70-100)
--- NOTE | 2018-04-19 18:16 | PDOC ---
Attending Attestation - Resident Resident Name: Ramirez Alcazar - ED Attending Attestation I have performed the following: I have examined & evaluated the patient, The case was reviewed & discussed with the resident, I agree w/resident's findings & plan, Exceptions are as noted - HPI HPI: 04/19/18 18:39 73-year-old female with past medical history of bladder cancer, hypertension, coronary disease, according infarction, COPD into many on oxygen presents to the emergency department for worsening dyspnea on exertion shortness of breath and wheezing and coughing for one week. The patient feels that she's been feeling significantly worse but denies fevers or chills. Upon arrival to the ED , her O2 saturation 76%. However, the patient's breathing is unlabored and not in distress. - Physicial Exam PE: 04/19/18 18:39 GENERAL: Awake, alert, and fully oriented, in no acute distress. HEAD: No signs of trauma EYES: EOMI, sclera anicteric, conjunctiva clear ENT: Auricles normal inspection, hearing grossly normal, nares patent NECK: Normal ROM, supple LUNGS: Diffuse expiratory wheezing bilaterally. Speaking comfortably. HEART: Regular rate and rhythm, normal S1 and S2, no murmurs, rubs or gallops EXTREMITIES: Normal range of motion, no edema. No cords, erythema, or tenderness NEUROLOGICAL: Cranial nerves II through XII grossly intact. Normal speech, normal gait SKIN: Warm, Dry, normal turgor, no rashes or lesions noted. - Medical Decision Making 04/19/18 18:40 Vital Signs Temp Pulse Resp BP Pulse Ox 98.9 F 99 H 29 H 146/67 92 L 04/19/18 14:01 04/19/18 14:35 04/19/18 14:01 04/19/18 14:01 04/19/18 14:35 The patient is likely with COPD exacerbation. I agree with the plan to give DuoNeb's, steroids and antibiotics. Given her cardiac history, we'll also rule out [place] though less likely given the hypoxia and wheezing. The patient's oxygen saturations improved high 80s on oxygen and treatments. Will ultimately need to admit the patient to the hospital for further evaluation management. The patient was seen and evaluate by floating derrick operator Dr. Lackey. Heart Score/ECG Review - History History: Moderately suspicious - Electrocardiogram EKG: Non specific repolarization disturbance - Age Age: >/= 65 - Risk Factors Based on the list above the patient has:: >/=3 risk factors or Hx atherosclerotic disease #1 ECG reviewed & interpreted by me at: 17:30 04/19/18 18:36 NSR 69, Q wave III, avF, no std/andressa, TWI V6, QTC 435 msec
--- NOTE | 2018-04-19 18:27 | PN ---
Progress Note (short form) - Note Progress Note: PULMONARY CONSULTATION DICTATED 04/19/18 IMP ACUTE ON CHRONIC HYPOXEMIC/YPERCAPNEIC RESPIRATORY FAILURE COPD EXACERBATION END STAGE COPD O2 DEPENDENT ASHD S/P STENTS BLADDER CA ON BCG SECONDARY ERYTHROCYTOSIS TOBACCO ABUSE PLAN IV STEROIDS INHALED BRONCHODILATORS O2 TO MAINTAIN SAT 90% OR GREATER ABX MONITOR H+H F/U CHEST X-RAY D-DIMER DR LORD Problem List - Problems (1) Acute on chronic respiratory failure with hypercapnia Code(s): J96.22 - ACUTE AND CHRONIC RESPIRATORY FAILURE WITH HYPERCAPNIA (2) COPD exacerbation Code(s): J44.1 - CHRONIC OBSTRUCTIVE PULMONARY DISEASE W (ACUTE) EXACERBATION (3) H/O acute myocardial infarction Code(s): I25.2 - OLD MYOCARDIAL INFARCTION (4) HTN (hypertension) Code(s): I10 - ESSENTIAL (PRIMARY) HYPERTENSION (5) Bladder cancer Code(s): C67.9 - MALIGNANT NEOPLASM OF BLAD[place], UNSPECIFIED (6) ASHD (arteriosclerotic heart disease) Code(s): I25.10 - ATHSCL HEART DISEASE OF [place] CORONARY ARTERY W/O ANG PCTRS (7) Weight loss Code(s): R63.4 - ABNORMAL WEIGHT LOSS
[2018-04-19] MEDS ORDERED: methylPREDNISolone NA SUCC 125 MG/2 ML VIAL ONE (18:47)
[2018-04-19] MEDS: methylPREDNISolone NA SUCC 40 MG/1 ML VIAL IVPUSH SCH ×2 (18:50→21:04)
[2018-04-19] MEDS: ALBUTEROL SO4 0.083% IH SOL 2.5 MG/3 ML VIAL.NEB. NEB PRN (19:08)
[2018-04-19] MEDS: ALBUTEROL SO4 2.5/IPRATROPIUM 0.5 INH SOL 3 ML VIAL.NEB. NEB SCH (20:14)
--- NOTE | 2018-04-19 20:36 | CONS ---
PULMONARY CONSULTATION DATE OF CONSULTATION: 04/19/2018 REFERRING PHYSICIAN: Khanh Gutiérrez MD The patient is a 73-year-old white female, well known to me from previous hospitalization as well as office follow, with a past medical history of advanced COPD with chronic hypoxemic respiratory failure; history of bladder CA, currently receiving BCG treatments; hypertension; ASHD status post DE, status post stents; prediabetes; admitted to [facility] with complaint of 4-5 day history of increasing shortness of breath and cough productive of yellow sputum. Patient denied any complaints of chest pain, nausea, vomiting, or diaphoresis. Patient was evaluated in triage and noted to have O2 saturation of 76%. She was treated with DuoNeb and prednisone. Patient denies any hemoptysis. Denies any recent travel. There is no history of DVT or PE in the past. She denies any history of occupational exposure to chemicals or fumes. She has a longstanding history of tobacco use, greater than 1 pack per day for many years and still smokes approximately 15-20 cigarettes daily. PAST MEDICAL HISTORY: Again includes advanced COPD with chronic hypoxemic respiratory failure; bladder CA, currently receiving BCG treatments; hypertension; ASHD status post DE, status post stents. REVIEW OF SYSTEMS: Positive cough. Positive shortness of breath. Positive chest congestion. No fever. No chills. No hemoptysis. No abdominal pain. No lower extremity edema. MEDICATIONS PRIOR TO ADMISSION: Include ProAir, amlodipine, losartan, Plavix, Advair, Tudorza, Lipitor, and Benadryl. PHYSICAL EXAMINATION: General: The patient is a thin white female, well developed, awake, alert, dyspneic on O2. Vital Signs: Respiratory rate is 26, O2 saturation is 92% on 4 L, heart rate is 99. She is afebrile. HEENT: Normocephalic, atraumatic. Neck: Supple. Heart: Regular. S1, S2. Chest: Scattered bilateral rhonchi. Abdomen: Soft. Bowel sounds are positive. Extremities: No cyanosis or edema. LABORATORY DATA: WBC is 8.5, hemoglobin 18.2, hematocrit 55.1, with a platelet count of 195,000. Blood gas showed pH of 7.40, pCO2 of 65, a pO2 of 49, a bicarbonate of 39, saturation of 84.3; that was on oxygen, unknown quantity. Chemistries are pending. Chest x-ray: No acute infiltrates and/or effusions. IMPRESSION: [id number], hypoxemic, hypercapnic respiratory failure secondary to: 1. Decompensated chronic obstructive pulmonary disease. 2. Atherosclerotic heart disease status post myocardial infarction, status post stents. 3. History of bladder cancer, currently on Bacille Calmette Steven (BCG). 4. Secondary erythrocytosis. 5. Tobacco abuse. PLAN: IV steroids, inhaled bronchodilators, supplemental O2. Monitor hemoglobin and hematocrit. Antibiotics. Obtain followup chest x-rays. We will also send serum D-dimer. If markedly elevated, would recommend CTA of the chest to rule out possible pulmonary emboli. ELAINE LORD M.D. [id number] MTDD
--- NOTE | 2018-04-19 21:05 | HP ---
CHIEF COMPLAINT: SOB, Productive Cough PCP: Dr. Gutiérrez HISTORY OF PRESENT ILLNESS: This is a 73 y/o woman with significant medical history of Bladder Ca (BCG Treatments), HTN, ASHD s/p [place], COPD, Smoker 1PPD. Who presents to the ED for increased SOB and productive cough x 1 week, worse today. ER course was notable for: (1) Spo2 on arrival 79% (2) ABG- 7.4/65/49/39 (3) D dimer 1698 Recent Travel: None PAST MEDICAL HISTORY: See HPI PAST SURGICAL HISTORY: Cardiac Stents Angiogram Social History: Smoking: Cigarettes 1PPD > 40 yrs Alcohol: None Drugs: None Lives alone, has family support Family History: Mother- heart disease Allergies No Known Drug Allergies Allergy (Verified 04/19/18 14:01) HOME MEDICATIONS: Home Medications Medication Instructions Recorded Albuterol Sulfate [Proair 1 mcg IH DAILY PRN 05/08/16 Respiclick] Amlodipine Besylate 10 mg PO DAILY 05/08/16 Losartan Potassium 100 mg PO DAILY 05/08/16 Clopidogrel Bisulfate [Plavix -] 75 mg PO DAILY #0 05/12/16 Fluticasone/Salmeterol [Advair 1 each IH BID 09/09/16 250-50 Diskus] Aclidinium [place] [Tudorza -] 1 puff IH BID inhaler 11/03/16 Atorvastatin Ca [Lipitor] 80 mg PO HS tablet 11/03/16 Diphenhydramine HCl [Benadryl 25 mg PO Q6H PRN #20 capsule 11/03/16 Capsule -] Ertapenem Sodium [Invanz -] 1 gm IVPB DAILY #9 vial 11/03/16 Lactobacillus Acidophilus [Bacid -] 1 tab PO BID #60 tab 11/03/16 Nicotine Patch [Nicoderm Patch -] 21 mg TD DAILY #30 patch 11/03/16 REVIEW OF SYSTEMS CONSTITUTIONAL: Absent: fever, chills, diaphoresis, generalized weakness, malaise, loss of appetite, weight change HEENT: Absent: rhinorrhea, nasal congestion, throat pain, throat swelling, difficulty swallowing, mouth swelling, ear pain, eye pain, visual changes CARDIOVASCULAR: Absent: chest pain, syncope, palpitations, irregular heart rate, lightheadedness , peripheral edema RESPIRATORY: cough, shortness of breath, dyspnea with exertion Absent: orthopnea, wheezing, stridor, hemoptysis GASTROINTESTINAL: Absent: abdominal pain, abdominal distension, nausea, vomiting, diarrhea, constipation, melena, hematochezia GENITOURINARY: Absent: dysuria, frequency, urgency, hesitancy, hematuria, flank pain, genital pain MUSCULOSKELETAL: Absent: myalgia, arthralgia, joint swelling, back pain, neck pain SKIN: Absent: rash, itching, pallor HEMATOLOGIC/IMMUNOLOGIC: Absent: easy bleeding, easy bruising, lymphadenopathy, frequent infections ENDOCRINE: Absent: unexplained weight gain, unexplained weight loss, heat intolerance, cold intolerance NEUROLOGIC: Absent: headache, focal weakness or paresthesias, dizziness, unsteady gait, seizure, mental status changes, bladder or bowel incontinence PSYCHIATRIC: Absent: anxiety, depression, suicidal or homicidal ideation, hallucinations. PHYSICAL EXAMINATION Vital Signs - 24 hr 04/19/18 04/19/18 04/19/18 14:01 14:35 18:15 Temperature 98.9 F Pulse Rate 95 H 99 H Pulse Rate [ 94 H Left] Respiratory 29 H 26 H Rate Blood Pressure 146/67 Blood Pressure 138/66 [Left Arm] O2 Sat by Pulse 79 L 92 L 85 L Oximetry (%) 04/19/18 20:00 Temperature Pulse Rate Pulse Rate [ 80 Left] Respiratory 24 Rate Blood Pressure Blood Pressure 130/65 [Left Arm] O2 Sat by Pulse 84 L Oximetry (%) GENERAL: Thin, awake, alert, and fully oriented, in mild respiratory distress. HEAD: Normal with no signs of trauma. EYES: Pupils equal, round and reactive to light, extraocular movements intact, sclera anicteric, conjunctiva clear. No lid lag. EARS, NOSE, THROAT: Ears normal, nares patent, oropharynx clear without exudates. Moist mucous membranes. NECK: Normal range of motion, supple without lymphadenopathy, JVD, or masses. LUNGS: Scattered rhonchi and diffuse wheeze throughout. No accessory muscle use. HEART: Regular rate and rhythm, normal S1 and S2 without murmur, rub or gallop. ABDOMEN: Soft, nontender, not distended, normoactive bowel sounds, no guarding, no rebound, no masses. No hepatomegaly or splenomegaly. MUSCULOSKELETAL: Normal range of motion at all joints. No bony deformities or tenderness. No CVA tenderness. UPPER EXTREMITIES: 2+ pulses, warm, well-perfused. No cyanosis. No clubbing. No peripheral edema. LOWER EXTREMITIES: 2+ pulses, warm, well-perfused. No calf tenderness. No peripheral edema. NEUROLOGICAL: Cranial nerves II-XII intact. Normal speech. Gait not observed. PSYCHIATRIC: Cooperative. Good eye contact. Appropriate mood and affect. SKIN: Warm, dry, normal turgor, no rashes. normal capillary refill. non mobile circumferential nodules x3 noted to upper lumbar. Laboratory Results - last 24 hr 04/19/18 04/19/18 04/19/18 15:15 15:20 16:38 WBC 8.5 RBC 5.84 H Hgb 18.2 H Hct 55.1 H D MCV 94.4 MCH 31.2 MCHC 33.0 RDW 15.4 Plt Count 195 MPV 7.4 L Absolute Neuts (auto) 6.7 Neutrophils % 79.0 D Lymphocytes % 11.8 D Monocytes % 7.3 Eosinophils % 1.2 Basophils % 0.7 Nucleated RBC % 0 D-Dimer Puncture Site Left radial ABG pH 7.40 ABG pCO2 at Pt Temp 65.2 H* ABG pO2 at Pt Temp 49.6 L* ABG HCO3 39.1 H ABG O2 Sat (Measured) 84.3 L ABG O2 Content 20.9 ABG Base Excess 10.6 H Michael Test No Result Required. Carboxyhemoglobin 3.7 H Methemoglobin 1.5 Oxygen Flow Rate Yes Magnesium 2.7 H 04/19/18 19:50 WBC RBC Hgb Hct MCV MCH MCHC RDW Plt Count MPV Absolute Neuts (auto) Neutrophils % Lymphocytes % Monocytes % Eosinophils % Basophils % Nucleated RBC % D-Dimer 1698 H Puncture Site ABG pH ABG pCO2 at Pt Temp ABG pO2 at Pt Temp ABG HCO3 ABG O2 Sat (Measured) ABG O2 Content ABG Base Excess Michael Test Carboxyhemoglobin Methemoglobin Oxygen Flow Rate Magnesium ASSESSMENT/PLAN: This is a 73 y/o woman with PMHx of: COPD, 1PPD smoker, Bladder CA (BCG Treatments) HTN, ASHD s/p [place]. Admitted to Telemetry for Acute COPD Exacerbation , Acute on Chronic Hypoxemia, Hypercapnia for further evaluation of their emergent condition. Plan: 1. Acute COPD Exacerbation - Cardiac monitoring - Pulm following - Albuterol nebs - Continue home meds - O2- NC, Venturi Mask as tolerated - Consider BIPAP if condition worsens - Levaquin- renal dosing - Smoking Cessation discussed, patient is not amendable - ABGs- reviewed 2. Acute on Chronic Hypoxemia, Hypercapnia - See above 3. Elevated D Dimer - concerning for PE - Wells Score 4 - Heparin Drip started - CTA pending in am, Cr 1.2 with GFR 44.16 4. HTN - stable - continue home meds - monitor renal function 5. ASHD - s/p Stents - continue home meds 6. Bladder Ca - BCG treatments - Appreciate Oncology consult 7. Skin Lesions - Suspicious for squamous cell carcinoma - Appreciate Dermatology consult 8. Tobacco Dependency - Smoking Cessation discussed, patient is not amendable - Patient declines Nicoderm patches 9. FEN - Replete lytes prn - Low Na Diet as tolerated 10. DVT ppx - OOB - SCDs - On Heparin Drip r/o PE Code Status: Full Code Dispo: Requires Inpatient Care Problem List - Problem (1) COPD exacerbation Code(s): J44.1 - CHRONIC OBSTRUCTIVE PULMONARY DISEASE W (ACUTE) EXACERBATION (2) Acute on chronic respiratory failure with hypercapnia Code(s): J96.22 - ACUTE AND CHRONIC RESPIRATORY FAILURE WITH HYPERCAPNIA (3) ASHD (arteriosclerotic heart disease) Code(s): I25.10 - ATHSCL HEART DISEASE OF [place] CORONARY ARTERY W/O ANG PCTRS (4) HTN (hypertension) Code(s): I10 - ESSENTIAL (PRIMARY) HYPERTENSION (5) Bladder cancer Code(s): C67.9 - MALIGNANT NEOPLASM OF BLADDER, UNSPECIFIED Qualifiers: Bladder location: unspecified site Qualified Code(s): C67.9 - Malignant neoplasm of bladder, unspecified (6) H/O acute myocardial infarction Code(s): I25.2 - OLD MYOCARDIAL INFARCTION (7) DVT prophylaxis Code(s): [id number] - Visit type - Emergency Visit Emergency Visit: Yes ED Registration Date: 04/19/18 Care time: The patient presented to the Emergency Department on the above date and was hospitalized for further evaluation of their emergent condition. - New Patient This patient is new to me today: Yes Date on this admission: 04/19/18 - Critical Care Critical Care patient: No Hospitalist Screening - Colonoscopy Questionnaire Colonoscopy Questionnaire: Colonoscopy Questionnaire - Patient: 50 - 75 years old and never had a screening colonoscopy: No History of colon or rectal polyps, or CA: No History of IBD, Crohn's disease or UC: No History of abdominal radiation therapy as a child: No - Relative: 1 with colon or rectal CA, or polyps at age 60 or younger: No Colon or rectal CA diagnosed at age 45 or younger: No Multiple relatives with colon or rectal CA: No - Outcome: Screening Result: Negative Screen
[2018-04-19 21:10] LABS: ALBUMIN 3.1 g/dl (3.4-5.0); ANION GAP 6 (8-16); BILIRUBIN,TOTAL 1.2 mg/dL (0.2-1.0); BLOOD UREA NITROGEN 22 mg/dL (7-18); CALCIUM 8.1 mg/dL (8.5-10.1); CHLORIDE 104 mmol/L (98-107); CO2 35 mmol/L (21-32); CREATININE 1.2 mg/dL (0.55-1.02); GLUCOSE,RANDOM 100 mg/dL (74-106); POTASSIUM 3.3 mmol/L (3.5-5.1); SGOT/AST 22 U/L (15-37); SGPT/ALT 23 U/L (12-78); SODIUM 145 mmol/L (136-145); TOT PROT 5.6 g/dl (6.4-8.2)
[2018-04-19 21:11] LABS: ALK PHOS 67 U/L (45-117)
[2018-04-19] MEDS ORDERED: HEPARIN NA (PORCINE) 5,000 UNITS/ML 1ML VIAL SQ SCH (22:00)
[2018-04-19] MEDS ORDERED: TUDORZA IH SCH (22:00)
[2018-04-19] MEDS ORDERED: HEPARIN NA (PORCINE) 5,000 UNITS/ML 1ML VIAL IVPUSH PRN ×2 (22:38)
[2018-04-19] MEDS ORDERED: ATORVASTATIN CA 80 MG TABLET (FP) ONE (23:56)
[2018-04-19] MEDS ORDERED: HEPARIN NA (PORCINE) 5,000 UNITS/ML 1ML VIAL ONE (23:56)
[2018-04-19] MEDS ORDERED: HEPARIN INFUSION - 25,000 UNITS/500 ML INFUS.BAG IVPB ONE (23:56)
[2018-04-20] MEDS: HEPARIN INFUSION - 25,000 UNITS/500 ML INFUS.BAG IVPB SCH (00:01)
[2018-04-20] MEDS: ATORVASTATIN CA 80 MG TABLET (FP) PO SCH ×2 (00:01→21:22)
[2018-04-20 00:29] LABS: ARTERIAL BLD GAS O2 SATURATION 85.3 % (90-98.9); ARTERIAL BLOOD GAS BASE EXCESS 8.4 meq/l (-2-2); ARTERIAL BLOOD GAS PCO2 59.8 mmHg (35-45); ARTERIAL BLOOD GAS PO2 51.6 mmHg (70-100)
[2018-04-20 00:32] LABS: ALLENS TEST POSITIVE
[2018-04-20] MEDS ORDERED: ALBUTEROL SO4 0.083% IH SOL 2.5 MG/3 ML VIAL.NEB. NEB ONE (00:42)
[2018-04-20] MEDS: ALBUTEROL SO4 0.083% IH SOL 2.5 MG/3 ML VIAL.NEB. NEB PRN (00:46)
[2018-04-20] MEDS ORDERED: methylPREDNISolone NA SUCC 40 MG/1 ML VIAL ONE (03:03)
[2018-04-20] MEDS: methylPREDNISolone NA SUCC 40 MG/1 ML VIAL IVPUSH SCH ×4 (03:19→21:22)
[2018-04-20 07:55] LABS: BASO % 0.1 % (0-2.0); HEMATOCRIT 50.8 % (32.4-45.2); HEMOGLOBIN 16.9 GM/dL (10.7-15.3); LYMPH % 4.7 % (8-40); MCH 31.5 pg (25.7-33.7); MCHC 33.3 g/dl (32.0-36.0); MEAN CELL VOLUME 94.5 fl (80-96); MEAN PLT VOLUME 7.5 fl (7.5-11.1); NEUT % 94.2 % (42.8-82.8); PLATELET COUNT 162 K/MM3 (134-434); RBC 5.38 M/mm3 (3.60-5.2); WHITE BLOOD COUNT 6.7 K/mm3 (4.0-10.0)
--- NOTE | 2018-04-20 08:34 | PN ---
Progress Note, Physician - Current Medication List Current Medications: Active Medications Albuterol Sulfate (Ventolin 0.083% Nebulizer Soln -) 1 amp NEB Q4H PRN PRN Reason: SHORT OF BREATH/WHEEZING Last Admin: 04/20/18 00:46 Dose: 1 amp Albuterol/Ipratropium (Duoneb -) 1 amp NEB RQID ALFA Last Admin: 04/19/18 20:14 Dose: 1 amp Amlodipine Besylate (Norvasc -) 10 mg PO DAILY [facility] Atorvastatin Calcium (Lipitor -) 80 mg PO HS [facility] Last Admin: 04/20/18 00:01 Dose: 80 mg Budesonide/Formoterol Fumarate (Symbicort 80/4.5mcg -) 2 puff IH BID [facility] Clopidogrel Bisulfate (Plavix -) 75 mg PO DAILY [facility] Heparin Sodium (Porcine) (Heparin -) 1,000 unit IVPUSH PRN PRN PRN Reason: Heparin Last Admin: 04/20/18 00:01 Dose: 1,000 unit Heparin Sodium (Porcine) (Heparin -) 5,000 unit IVPUSH PRN PRN PRN Reason: Heparin Last Admin: 04/20/18 00:01 Dose: 5,000 unit Levofloxacin (Levaquin 250 Mg Premixed Ivpb -) 250 mg in 50 mls @ 100 mls/hr IVPB DAILY [facility]; Protocol Heparin Sodium/Dextrose (Heparin Infusion -) 25,000 units in 500 mls @ 16 mls/ hr IVPB TITR ALFA; Protocol Last Admin: 04/20/18 00:01 Dose: 800 units/hr, 16 mls/hr Losartan Potassium (Cozaar -) 100 mg PO DAILY [facility] Methylprednisolone Sodium Succinate (Solu-Medrol -) 60 mg IVPUSH Q6H-IV [facility]FA Last Admin: 04/20/18 03:19 Dose: 60 mg Nicotine (Nicoderm Patch -) 21 mg TD DAILY [facility] Pt's Own Med ( Tudorza (Aclidinum [place]) 1 each IH BID [facility] - Objective Vital Signs: Vital Signs Temperature 98.6 F 04/20/18 00:42 Pulse Rate 62 04/20/18 06:09 Respiratory Rate 20 04/20/18 06:09 Blood Pressure 127/58 04/20/18 06:09 O2 Sat by Pulse Oximetry (%) 91 L 04/20/18 06:09 Labs: CBC, BMP 04/20/18 07:20 Problem List - Problems (1) COPD exacerbation Assessment/Plan: - Cardiac monitoring - Pulm following - Albuterol nebs - Continue home meds - O2- NC, Venturi Mask as tolerated - Consider BIPAP if condition worsens - Levaquin- renal dosing - Smoking Cessation discussed, patient is not amendable - ABGs- reviewed Code(s): J44.1 - CHRONIC OBSTRUCTIVE PULMONARY DISEASE W (ACUTE) EXACERBATION (2) Dyspnea Assessment/Plan: - Elevated D Dimer - concerning for PE - Wells Score 4 - Heparin Drip started - CTA pending Code(s): R06.00 - DYSPNEA, UNSPECIFIED (3) HTN (hypertension) Code(s): I10 - ESSENTIAL (PRIMARY) HYPERTENSION (4) CAD (coronary artery disease) Assessment/Plan: - s/p Stents - continue home meds Code(s): I25.10 - ATHSCL HEART DISEASE OF [place] CORONARY ARTERY W/O ANG PCTRS (5) Tobacco abuse Assessment/Plan: 8. Tobacco Dependency - Smoking Cessation discussed, patient is not amendable - Patient declines Nicoderm patches Code(s): Z72.0 - TOBACCO USE (6) Bladder cancer Assessment/Plan: - BCG treatments - Appreciate Oncology consult Code(s): C67.9 - MALIGNANT NEOPLASM OF BLADDER, UNSPECIFIED (7) Skin lesion Assessment/Plan: - Suspicious for squamous cell carcinoma - Dermatology consult Code(s): L98.9 - DISORDER OF THE SKIN AND SUBCUTANEOUS TISSUE, UNSPECIFIED
[2018-04-20 08:47] LABS: ANION GAP 5 (8-16); BLOOD UREA NITROGEN 29 mg/dL (7-18); CALCIUM 8.5 mg/dL (8.5-10.1); CHLORIDE 99 mmol/L (98-107); CO2 36 mmol/L (21-32); CREATININE 1.3 mg/dL (0.55-1.02); GLUCOSE,RANDOM 159 mg/dL (74-106); POTASSIUM 3.6 mmol/L (3.5-5.1); SODIUM 140 mmol/L (136-145)
[2018-04-20 09:27] LABS: ANISOCYTOSIS 0; MACROCYTOSIS 0; PLATELET ESTIMATE DECREASED
--- NOTE | 2018-04-20 09:54 | PN ---
Progress Note, Physician History of Present Illness: PULMONARY ALERT SOME IMPROVEMENT LESS DYSPNEIC, REMAINS HYPOXIC ON 40% VM O2 SAT 86%. D- DIMER 1698 - Current Medication List Current Medications: Active Medications Albuterol Sulfate (Ventolin 0.083% Nebulizer Soln -) 1 amp NEB Q4H PRN PRN Reason: SHORT OF BREATH/WHEEZING Last Admin: 04/20/18 00:46 Dose: 1 amp Albuterol/Ipratropium (Duoneb -) 1 amp NEB RQID ALFA Last Admin: 04/19/18 20:14 Dose: 1 amp Amlodipine Besylate (Norvasc -) 10 mg PO DAILY [facility] Atorvastatin Calcium (Lipitor -) 80 mg PO HS [facility] Last Admin: 04/20/18 00:01 Dose: 80 mg Budesonide/Formoterol Fumarate (Symbicort 80/4.5mcg -) 2 puff IH BID [facility] Clopidogrel Bisulfate (Plavix -) 75 mg PO DAILY [facility] Heparin Sodium (Porcine) (Heparin -) 1,000 unit IVPUSH PRN PRN PRN Reason: Heparin Last Admin: 04/20/18 00:01 Dose: 1,000 unit Heparin Sodium (Porcine) (Heparin -) 5,000 unit IVPUSH PRN PRN PRN Reason: Heparin Last Admin: 04/20/18 00:01 Dose: 5,000 unit Levofloxacin (Levaquin 250 Mg Premixed Ivpb -) 250 mg in 50 mls @ 100 mls/hr IVPB DAILY [facility]; Protocol Heparin Sodium/Dextrose (Heparin Infusion -) 25,000 units in 500 mls @ 16 mls/ hr IVPB TITR [facility]; Protocol Last Admin: 04/20/18 00:01 Dose: 800 units/hr, 16 mls/hr Losartan Potassium (Cozaar -) 100 mg PO DAILY [facility] Methylprednisolone Sodium Succinate (Solu-Medrol -) 60 mg IVPUSH Q6H-IV ALFA Last Admin: 04/20/18 03:19 Dose: 60 mg Nicotine (Nicoderm Patch -) 21 mg TD DAILY [facility] Pt's Own Med ( Tudorza (Aclidinum [place]) 1 each IH BID [facility] - Objective Vital Signs: Vital Signs Temperature 98.6 F 04/20/18 00:42 Pulse Rate 62 04/20/18 06:09 Respiratory Rate 20 07/10/18 06:09 Blood Pressure 127/58 07/10/18 06:09 O2 Sat by Pulse Oximetry (%) 91 L 04/20/18 06:09 Constitutional: Yes: Calm, Thin Eyes: Yes: WNL HENT: Yes: WNL Neck: Yes: WNL Cardiovascular: Yes: Regular Rate and Rhythm, S1, S2 Respiratory: Yes: Wheezes (OCC WHEEZE) Gastrointestinal: Yes: Normal Bowel Sounds, Soft Extremities: Yes: WNL Edema: No Labs: CBC, BMP 04/20/18 07:20 04/20/18 07:20 Laboratory Tests 04/19/18 19:50 D-Dimer 1698 H Problem List - Problems (1) Acute on chronic respiratory failure with hypercapnia Code(s): J96.22 - ACUTE AND CHRONIC RESPIRATORY FAILURE WITH HYPERCAPNIA (2) COPD exacerbation Code(s): J44.1 - CHRONIC OBSTRUCTIVE PULMONARY DISEASE W (ACUTE) EXACERBATION (3) H/O acute myocardial infarction Code(s): I25.2 - OLD MYOCARDIAL INFARCTION (4) HTN (hypertension) Code(s): I10 - ESSENTIAL (PRIMARY) HYPERTENSION (5) Bladder cancer Code(s): C67.9 - MALIGNANT NEOPLASM OF BLADDER, UNSPECIFIED (6) ASHD (arteriosclerotic heart disease) Code(s): I25.10 - ATHSCL HEART DISEASE OF [place] CORONARY ARTERY W/O ANG PCTRS (7) Weight loss Code(s): R63.4 - ABNORMAL WEIGHT LOSS Assessment/Plan IMP ACUTE ON CHRONIC HYPOXEMIC/YPERCAPNEIC RESPIRATORY FAILURE COPD EXACERBATION END STAGE COPD O2 DEPENDENT ASHD S/P STENTS BLADDER CA ON BCG SECONDARY ERYTHROCYTOSIS TOBACCO ABUSE TOPHER PLAN IV STEROIDS INHALED BRONCHODILATORS HEPARIN O2 TO MAINTAIN SAT 90% OR GREATER ABX MONITOR H+H F/U CHEST X-RAY IVF CONSIDER RENAL EVALUATION DUPLEX LOWER EXT CHEST CTA WHEN RENAL FUNCTION IMPROVES DR LORD Problem List - Problems (1) Acute on chronic respiratory failure with hypercapnia Code(s): J96.22 - ACUTE AND CHRONIC RESPIRATORY FAILURE WITH HYPERCAPNIA (2) COPD exacerbation Code(s): J44.1 - CHRONIC OBSTRUCTIVE PULMONARY DISEASE W (ACUTE) EXACERBATION (3) H/O acute myocardial infarction Code(s): I25.2 - OLD MYOCARDIAL INFARCTION (4) HTN (hypertension) Code(s): I10 - ESSENTIAL (PRIMARY) HYPERTENSION (5) Bladder cancer Code(s): C67.9 - MALIGNANT NEOPLASM OF BLAD[place], UNSPECIFIED (6) ASHD (arteriosclerotic heart disease) Code(s): I25.10 - ATHSCL HEART DISEASE OF [place] CORONARY ARTERY W/O ANG PCTRS (7) Weight loss Code(s): R63.4 - ABNORMAL WEIGHT LOSS
[2018-04-20] MEDS: ALBUTEROL SO4 2.5/IPRATROPIUM 0.5 INH SOL 3 ML VIAL.NEB. NEB SCH ×4 (10:00→19:42)
[2018-04-20] MEDS ORDERED: TIOTROPIUM BROMIDE 18 MCG CAPSULES IH SCH (10:00)
[2018-04-20 10:33] LABS: INR 0.95 (0.82-1.09); PROTHROMBIN TIME (PATIENT) 10.7 SEC (9.7-13.0)
[2018-04-20] MEDS: LOSARTAN POTASSIUM 50 MG TABLET (FP) PO SCH (11:38)
[2018-04-20] MEDS: amLODIPine BESYLATE 10 MG TABLET (FP) PO SCH (11:39)
[2018-04-20] MEDS: NICOTINE 21 MG/24 HOURS TOPICAL PATCH TD SCH (11:39)
[2018-04-20] MEDS: CLOPIDOGREL BISULFATE 75 MG TABLET (FP) PO SCH (11:40)
--- NOTE | 2018-04-20 12:04 | EKG ---
Test Reason : Blood Pressure : / mmHG Vent. Rate : 069 BPM Atrial Rate : 069 BPM P-R Int : 158 ms QRS Dur : 100 ms QT Int : 406 ms P-R-T Axes : 061 -15 090 degrees QTc Int : 435 ms NORMAL SINUS RHYTHM INFERIOR INFARCT , AGE UNDETERMINED ANTERIOR INFARCT , AGE UNDETERMINED ABNORMAL ECG Confirmed by MD LUIS, NITO ([id number]) on 04/20/2018 12:03:53 PM Referred By: Confirmed By:NITO SMITH MD
--- NOTE | 2018-04-20 13:10 | CONSULT ---
Consult Consult Specialty:: Nephrology Reason for Consultation:: CKD - History of Present Illness Chief Complaint: dyspnea History of Present Illness: Pt is a 73 year old female with pmhx of CKD, bladder cancer, HTN, CAD, and COPD who presents to the ER for shortness of breath that has been progressively getting worse over the last four days. She also complains of cough with yellow sputum. She denies chest pain or palpitations. She is awake and alert. I was called to evaluate her for CKD. Pt also has a CT scan with contrast ordered. She is concerned about her renal failure and agrees to medicaly optimize her. She denies dysuria or hematura. She denies lower ext edema. She denies nsaid use. She is very anxious. She is still actively smoking. - History Source History Provided By: Patient, Medical Record - Past Medical History Cardio/Vascular: Yes: CAD, Hyperlipdemia Pulmonary: Yes: COPD Renal/: Yes: Renal Inusuff, Other (bladder cancer) - Alcohol/Substance Use Hx Alcohol Use: No - Smoking History Smoking history: Current every day smoker Have you smoked in the past 12 months: Yes Aproximately how many cigarettes per day: 20 Home Medications - Allergies Allergies/Adverse Reactions: Allergies Allergy/AdvReac Type Severity Reaction Status Date / Time No Known Drug Allergies Allergy Verified 04/19/18 14:01 - Home Medications Home Medications: Ambulatory Orders Albuterol Sulfate [Proair Respiclick] 1 mcg IH DAILY PRN 05/08/16 Amlodipine Besylate 10 mg PO DAILY 05/08/16 Losartan Potassium 100 mg PO DAILY 05/08/16 Clopidogrel Bisulfate [Plavix -] 75 mg PO DAILY #0 05/12/16 Fluticasone/Salmeterol [Advair 250-50 Diskus] 1 each IH BID 09/09/16 Aclidinium [place] [Tudorza -] 1 puff IH BID inhaler 11/03/16 Atorvastatin Ca [Lipitor] 80 mg PO HS tablet 11/03/16 Diphenhydramine HCl [Benadryl Capsule -] 25 mg PO Q6H PRN #20 capsule 11/03/16 Ertapenem Sodium [Invanz -] 1 gm IVPB DAILY #9 vial 11/03/16 Lactobacillus Acidophilus [Bacid -] 1 tab PO BID #60 tab 11/03/16 Nicotine Patch [Nicoderm Patch -] 21 mg TD DAILY #30 patch 11/03/16 Family Disease History - Family Disease History Family History: Denies Review of Systems - Review of Systems Constitutional: reports: Malaise Eyes: reports: No Symptoms HENT: reports: No Symptoms Neck: reports: No Symptoms Cardiovascular: reports: Shortness of Breath. denies: Edema Respiratory: reports: Cough, SOB, SOB on Exertion, Wheezing. denies: Hemoptysis Gastrointestinal: reports: No Symptoms Genitourinary: reports: No Symptoms Musculoskeletal: reports: No Symptoms Neurological: reports: No Symptoms Endocrine: reports: No Symptoms Hematology/Lymphatic: reports: No Symptoms Psychiatric: reports: No Symptoms Physical Exam Vital Signs: Vital Signs Temperature 98.6 F 04/20/18 00:42 Pulse Rate 62 04/20/18 06:09 Respiratory Rate 20 04/20/18 06:09 Blood Pressure 127/58 04/20/18 06:09 O2 Sat by Pulse Oximetry (%) 91 L 04/20/18 06:09 Constitutional: Yes: Anxious, Mild Distress Eyes: Yes: Conjunctiva Clear Cardiovascular: Yes: S1, S2 Respiratory: Yes: On Venti-Mask, Wheezes Gastrointestinal: Yes: Soft Renal/: Yes: WNL Musculoskeletal: Yes: WNL Extremities: Yes: WNL Edema: No Integumentary: Yes: Other (dry skin) Neurological: Yes: Oriented Psychiatric: Yes: Oriented Labs: CBC, BMP 04/20/18 07:20 04/20/18 07:20 Laboratory Tests 04/19/18 04/19/18 04/20/18 15:15 16:38 00:11 RBC Hgb 18.2 H ABG pH 7.40 ABG pCO2 at Pt Temp 59.8 H ABG pO2 at Pt Temp 51.6 L ABG HCO3 35.9 H ABG O2 Sat (Measured) 85.3 L Sodium 145 Potassium 3.3 L Carbon Dioxide 35 H BUN Creatinine 1.2 H 04/20/18 04/20/18 07:20 07:20 RBC 5.38 H Hgb 16.9 H ABG pH ABG pCO2 at Pt Temp ABG pO2 at Pt Temp ABG HCO3 ABG O2 Sat (Measured) Sodium 140 Potassium 3.6 Carbon Dioxide 36 H BUN 29 H Creatinine 1.3 H Imaging - Results Chest X-ray: Report Reviewed Problem List - Problems (1) CKD (chronic kidney disease) Code(s): N18.9 - CHRONIC KIDNEY DISEASE, UNSPECIFIED (2) ASHD (arteriosclerotic heart disease) Code(s): I25.10 - ATHSCL HEART DISEASE OF [place] CORONARY ARTERY W/O ANG PCTRS (3) Acute on chronic respiratory failure with hypercapnia Code(s): J96.22 - ACUTE AND CHRONIC RESPIRATORY FAILURE WITH HYPERCAPNIA (4) Bladder cancer Code(s): C67.9 - MALIGNANT NEOPLASM OF BLADDER, UNSPECIFIED (5) CAD (coronary artery disease) Code(s): I25.10 - ATHSCL HEART DISEASE OF [place] CORONARY ARTERY W/O ANG PCTRS (6) COPD exacerbation Code(s): J44.1 - CHRONIC OBSTRUCTIVE PULMONARY DISEASE W (ACUTE) EXACERBATION (7) COPD (chronic obstructive pulmonary disease) Code(s): J44.9 - CHRONIC OBSTRUCTIVE PULMONARY DISEASE, UNSPECIFIED Assessment/Plan Current Medications Generic Name Dose Route Start Last Admin Trade Name Freq PRN Reason Stop Dose Admin Albuterol Sulfate 1 amp 04/19/18 18:29 04/20/18 00:46 Ventolin 0.083% Nebulizer Soln - NEB 1 amp Q4H PRN Administration SHORT OF BREATH/WHEEZING Albuterol/Ipratropium 1 amp 04/19/18 20:00 04/20/18 10:00 Duoneb - NEB 1 amp RQID ALFA Administration Amlodipine Besylate 10 mg 04/20/18 10:00 04/20/18 11:39 Norvasc - PO 10 mg DAILY ALFA Administration Atorvastatin Calcium 80 mg 04/19/18 22:00 04/20/18 00:01 Lipitor - PO 80 mg HS ALFA Administration Budesonide/Formoterol Fumarate 2 puff 04/19/18 22:00 04/20/18 14:10 Symbicort 80/4.5mcg - IH 2 puff BID ALFA Administration Clopidogrel Bisulfate 75 mg 04/20/18 10:00 04/20/18 11:40 Plavix - PO 75 mg DAILY ALFA Administration Heparin Sodium (Porcine) 1,000 unit 04/19/18 22:38 04/20/18 00:01 Heparin - IVPUSH 1,000 unit PRN PRN Administration Heparin Heparin Sodium (Porcine) 5,000 unit 04/19/18 22:38 04/20/18 00:01 Heparin - IVPUSH 5,000 unit PRN PRN Administration Heparin Levofloxacin 250 mg in 50 mls @ 100 mls/hr 04/20/18 10:00 Levaquin 250 Mg Premixed Ivpb - IVPB DAILY ALFA Protocol Heparin Sodium/Dextrose 25,000 units in 500 mls @ 16 mls/hr 04/19/18 22:45 00:01 Heparin Infusion - IVPB 800 units/hr TITR ALFA 16 mls/hr Administration Protocol 800 UNITS/HR Losartan Potassium 100 mg 04/20/18 10:00 04/20/18 11:38 Cozaar - PO 100 mg DAILY ALFA Administration Methylprednisolone Sodium Succinate 60 mg 04/19/18 18:30 04/20/18 11:41 Solu-Medrol - IVPUSH 60 mg Q6H-IV ALFA Administration Nicotine 21 mg 04/20/18 10:00 04/20/18 11:39 Nicoderm Patch - TD 21 mg DAILY ALFA Administration Pt's Own Med ( 1 each 04/19/18 22:00 Tudorza (Aclidinum [place]) BID ALFA Impression 1. CKD stage 3 with worsening creatinine 2. resp failure requiring oxygen 3. HTN 4. CAD 5. COPD 6. hyperlipidemia 7. bladder cancer 8. active smoker Plan - renal function is worsening - called and spoke to pulmonary, pt is already on heparin and there is no urgency to get ct scan with contrast done today. I explained risks of WAY[place] to pt and she would like to wait. Will prep with fluids. - hold dose of losartan tomorrow - nicotine patch - monitor pulse ox - steroids with taper as tolerated (may cause an elevation in BUN) - repeat labs in am - check ua, electrolytes and grant manager - will follow - spoke to pt at length about plan Dr Herring
[2018-04-20] MEDS: BUDESONIDE/FORMETEROL FUMARATE 80/4.5 mcg INHALER IH SCH ×2 (14:10→21:23)
[2018-04-20] MEDS: SODIUM CHLORIDE 1,000 ML IV SCH (15:40)
--- NOTE | 2018-04-20 16:44 | CON.CARD ---
Cardiology Consult (text) - Consultation Consultation Note: Chief Complaint: sob, cough History of Present Illness: 73 yo female here for sob, cough. Past few days with sob, cough, yellow sputum. Mild cp when coughing. No dizzy, loc, pnd, orthopnea, le edema. Sees dr wynne for cardio. she has hx bladder Ca being tx'd by dr marcelino padilla with BCG treatments; has chronic chest tightness accompanying her severe [place] sx's for years which has been unchanged and is due to her copd, not CAD. had repeat cath for this 2013 ago showing patent stents, with mildly depressed LVEF. her sx's have remained the same since that cath. she has never had clinical chf and her sob sx's never improved with trial of lasix briefly after that cath (EDP was also slightly elevated). PMH: anxiety disorder +cigs--active, not interested in cessation HTN HPL - Past Medical History ...: No - Alcohol/Substance Use Hx Alcohol Use: No - Smoking History Smoking history: Current every day smoker Have you smoked in the past 12 months: Yes Aproximately how many cigarettes per day: 20 Home Medications - Allergies Allergies/Adverse Reactions: Allergies Allergy/AdvReac Type Severity Reaction Status Date / Time No Known Drug Allergies Allergy Verified 04/19/18 14:01 - Home Medications Home Medications Medication Instructions Recorded Albuterol Sulfate [Proair 1 mcg IH DAILY PRN 05/08/16 Respiclick] Amlodipine Besylate 10 mg PO DAILY 05/08/16 Losartan Potassium 100 mg PO DAILY 05/08/16 Clopidogrel Bisulfate [Plavix -] 75 mg PO DAILY #0 05/12/16 Fluticasone/Salmeterol [Advair 1 each IH BID 09/09/16 250-50 Diskus] Aclidinium [place] [Tudorza -] 1 puff IH BID inhaler 11/03/16 Atorvastatin Ca [Lipitor] 80 mg PO HS tablet 11/03/16 Diphenhydramine HCl [Benadryl 25 mg PO Q6H PRN #20 capsule 11/03/16 Capsule -] Ertapenem Sodium [Invanz -] 1 gm IVPB DAILY #9 vial 11/03/16 Lactobacillus Acidophilus [Bacid -] 1 tab PO BID #60 tab 11/03/16 Nicotine Patch [Nicoderm Patch -] 21 mg TD DAILY #30 patch 11/03/16 Family Disease History - Family Disease History Family History: Denies (no cmp) Review of Systems - Review of Systems Constitutional: denies: Chills, Fever Eyes: denies: Eye Pain HENT: denies: Nasal Congestion Neck: denies: Stiffness Cardiovascular: denies: Palpitations Respiratory: denies: Orthopnea, PND Gastrointestinal: denies: Diarrhea, Rectal Bleeding Genitourinary: denies: Burning, Hematuria Musculoskeletal: denies: Muscle Pain Integumentary: denies: Rash Neurological: denies: Numbness, Seizure, Syncope Endocrine: denies: Excessive Sweating Hematology/Lymphatic: denies: Excessive Bleeding Vital Signs: Vital Signs Period Temp Pulse Resp BP Sys/Lock Pulse Ox Last 24 Hr 98.3 F-98.6 F 62-94 20-26 112-138/50-66 84-91 Constitutional: Yes: Well Nourished, No Distress Eyes: No: Sclera Icterus HENT: No: Nasal Congestion Neck: No: Decreased ROM Respiratory: Yes: CTA Bilaterally, Rhonchi. No: Accessory Muscle Use, Rales, Wheezes Gastrointestinal: Yes: Normal Bowel Sounds. No: Distention, Hepatomegaly, Palpable Mass, Tenderness Cardiovascular: Yes: Regular Rate and Rhythm JVD: No Carotid Bruit: No PMI: Non-Displaced Heart Sounds: Yes: S1, S2. No: Gallop Murmur: No: Systolic Murmur, Diastolic Murmur Extremities: No: Cold, Cyanosis Edema: No Peripheral Pulses: 2+ Left Carotid, 2+ Right Carotid, 2+ Left Doralis Pedis, 2+ Right Dorsalis Pedis Integumentary: No: Jaundice Neurological: Yes: Alert, Oriented (x3) Psychiatric: No: Agitated - Other Data Labs, Other Data: Laboratory Last Values WBC 6.7 K/mm3 (4.0-10.0) 04/20/18 07:20 RBC 5.38 M/mm3 (3.60-5.2) H 04/20/18 07:20 Hgb 16.9 GM/dL (10.7-15.3) H 04/20/18 07:20 Hct 50.8 % (32.4-45.2) H 04/20/18 07:20 MCV 94.5 fl (80-96) 04/20/18 07:20 MCH 31.5 pg (25.7-33.7) 04/20/18 07:20 MCHC 33.3 g/dl (32.0-36.0) 04/20/18 07:20 RDW 15.0 % (11.6-15.6) 04/20/18 07:20 Plt Count 162 K/MM3 (134-434) 04/20/18 07:20 MPV 7.5 fl (7.5-11.1) 04/20/18 07:20 Absolute Neuts (auto) 6.3 # 04/20/18 07:20 Neutrophils % 94.2 % (42.8-82.8) H 04/20/18 07:20 Neutrophils % (Manual) 92.1 % (42.8-82.8) H 04/20/18 07:20 Band Neutrophils % 2.9 % 04/20/18 07:20 Lymphocytes % 4.7 % (8-40) L D 04/20/18 07:20 Lymphocytes % (Manual) 2.0 % (8-40) L 04/20/18 07:20 Monocytes % 1.0 % (3.8-10.2) L D 04/20/18 07:20 Monocytes % (Manual) 0 % (3.8-10.2) L 04/20/18 07:20 Eosinophils % 0.0 % (0-4.5) D 04/20/18 07:20 Eosinophils % (Manual) 1.0 % (0-4.5) 04/20/18 07:20 Basophils % 0.1 % (0-2.0) 04/20/18 07:20 Basophils % (Manual) 0.0 % (0-2.0) 04/20/18 07:20 Myelocytes % (Man) 0 % (0-2) 04/20/18 07:20 Promyelocytes % (Man) 0 % (0-2) 04/20/18 07:20 Blast Cells % (Manual) 0 % (0-0) 04/20/18 07:20 Nucleated RBC % 0 % (0-0) 04/20/18 07:20 Metamyelocytes 0 % (0-2) 04/20/18 07:20 Hypochromia 0 04/20/18 07:20 Platelet Estimate Decreased 04/20/18 07:20 Polychromasia 0 04/20/18 07:20 Poikilocytosis 0 04/20/18 07:20 Anisocytosis 0 04/20/18 07:20 Microcytosis 0 04/20/18 07:20 Macrocytosis 0 04/20/18 07:20 PT with INR 10.70 SEC (9.7-13.0) 04/20/18 10:00 INR 0.95 (0.82-1.09) 04/20/18 10:00 PTT (Actin FS) 75.7 SECONDS (25.2-36.5) H D 04/20/18 10:00 D-Dimer 1698 ng/ml (0-500) H 04/19/18 19:50 Puncture Site Left brachial 04/20/18 00:11 ABG pH 7.40 (7.35-7.45) 04/20/18 00:11 ABG pCO2 at Pt Temp 59.8 mmHg (35-45) H 04/20/18 00:11 ABG pO2 at Pt Temp 51.6 mmHg (70-100) L 04/20/18 00:11 ABG HCO3 35.9 meq/L (22-26) H 04/20/18 00:11 ABG O2 Sat (Measured) 85.3 % (90-98.9) L 04/20/18 00:11 ABG O2 Content 20.3 % vol (15-22) 04/20/18 00:11 ABG Base Excess 8.4 meq/l (-2-2) H 04/20/18 00:11 Michael Test Positive 04/20/18 00:11 Carboxyhemoglobin 3.7 gm% (0.5-2.0) H 04/19/18 15:20 Methemoglobin 1.5 % (0.4-1.5) 04/19/18 15:20 O2 Delivery Device Nasal 04/20/18 00:11 Oxygen Flow Rate 3.5 04/20/18 00:11 Sodium 140 mmol/L (136-145) 04/20/18 07:20 Potassium 3.6 mmol/L (3.5-5.1) 04/20/18 07:20 Chloride 99 mmol/L (98-107) 04/20/18 07:20 Carbon Dioxide 36 mmol/L (21-32) H 04/20/18 07:20 Anion Gap 5 (8-16) L 04/20/18 07:20 BUN 29 mg/dL (7-18) H 04/20/18 07:20 Creatinine 1.3 mg/dL (0.55-1.02) H 04/20/18 07:20 Creat Clearance w eGFR 40.26 (>60) 04/20/18 07:20 Random Glucose 159 mg/dL (74-106) H 04/20/18 07:20 Calcium 8.5 mg/dL (8.5-10.1) 04/20/18 07:20 Magnesium 2.7 mg/dL (1.8-2.4) H 04/19/18 16:38 Total Bilirubin 1.2 mg/dL (0.2-1.0) H 04/19/18 16:38 AST 22 U/L (15-37) 04/19/18 16:38 ALT 23 U/L (12-78) 04/19/18 16:38 Alkaline Phosphatase 67 U/L (45-117) 04/19/18 16:38 Total Protein 5.6 g/dl (6.4-8.2) L 04/19/18 16:38 Albumin 3.1 g/dl (3.4-5.0) L 04/19/18 16:38 cxr: no chf ecg: sr, nl intervals, no ischemic changes echo 03/2016: tds, mild dec lvef, nl rv, no sig valve path tele: sr Assessment/Plan sob, cough, copd: -getting abx, iv steroids for copd, pulm following -cta chest pending to r/o pe, remains on hep gtt due to suspicion for pe, elevated d-dimer chronic CAD, remote pci, w/o angina: -mult prior stents (prox and mid LAD, entire RCA and RPDA) all patent on cath 2013 -no angina (chronic sob with chest pressure is copd sx--present prior to cath and unchanged since) -no signs acs -cont plavix, statin, arb chronic diast chf -borderline depressed LVEF (45% on v-gram, 50% echo 2015) with moderately incr' d LVEDP at cath (24) -never clinical chf, no sob response to trial of lasix in past -current exam--clinically euvolemic -no diuretics needed HTN: -known bp lability from anxiety at times -reasonably controlled here HPL: -cont home statin +cigs: -previously counselled on cessation many times, not interested in quitting descending thoracic aortic aneurysm: -mild, stable size on 12/2017 ct chest -cont bp control
--- NOTE | 2018-04-20 19:53 | CONSULT ---
Consult Consult Specialty:: Dermatology - History of Present Illness Chief Complaint: growth on back - History Source History Provided By: Patient - Past Medical History Cardio/Vascular: Yes: CAD, Hyperlipdemia Pulmonary: Yes: COPD Renal/: Yes: Renal Inusuff, Other (bladder cancer) - Alcohol/Substance Use Hx Alcohol Use: No - Smoking History Smoking history: Current every day smoker Have you smoked in the past 12 months: Yes Aproximately how many cigarettes per day: 20 Home Medications - Allergies Allergies/Adverse Reactions: Allergies Allergy/AdvReac Type Severity Reaction Status Date / Time No Known Drug Allergies Allergy Verified 04/19/18 14:01 - Home Medications Home Medications: Ambulatory Orders Albuterol Sulfate [Proair Respiclick] 1 mcg IH DAILY PRN 05/08/16 Amlodipine Besylate 10 mg PO DAILY 05/08/16 Losartan Potassium 100 mg PO DAILY 05/08/16 Clopidogrel Bisulfate [Plavix -] 75 mg PO DAILY #0 05/12/16 Fluticasone/Salmeterol [Advair 250-50 Diskus] 1 each IH BID 09/09/16 Aclidinium [place] [Tudorza -] 1 puff IH BID inhaler 11/03/16 Atorvastatin Ca [Lipitor] 80 mg PO HS tablet 11/03/16 Diphenhydramine HCl [Benadryl Capsule -] 25 mg PO Q6H PRN #20 capsule 11/03/16 Ertapenem Sodium [Invanz -] 1 gm IVPB DAILY #9 vial 11/03/16 Lactobacillus Acidophilus [Bacid -] 1 tab PO BID #60 tab 11/03/16 Nicotine Patch [Nicoderm Patch -] 21 mg TD DAILY #30 patch 11/03/16 Physical Exam Vital Signs: Vital Signs Temperature 98 F 04/20/18 16:30 Pulse Rate 86 04/20/18 16:30 Respiratory Rate 20 04/20/18 17:00 Blood Pressure 150/80 04/20/18 16:30 O2 Sat by Pulse Oximetry (%) 86 L 04/20/18 17:00 Labs: CBC, BMP 04/20/18 07:20 04/20/18 07:20 Assessment/Plan Consulted to see patient for growth on back. This patient is a 73 yr old woman who is admitted for SOB due to COPD . She also has a history of CAD, CRF. HTN, high cholesterol and bladder cancer. She is and active smoker with solar elastosis on exposed skin and senile purpuric lesions on both forearms. On examination she has one large sebaceous cyst on the mid back and a smaller cyst next to it . The patient wishes to have the lesions removed surgically as an outpatient. Please have patient follow up for outpatient surgery when stable. Thank you
[2018-04-20 23:13] LABS: URINE APPEARANCE CLEAR; URINE BILIRUBIN NEGATIVE (<2.0 mg/dL); URINE COLOR LTYELLOW; URINE GLUCOSE (UA) NEGATIVE (NEGATIVE); URINE KETONE NEGATIVE (NEGATIVE); URINE LEUK ESTERASE NEGATIVE (NEGATIVE); URINE NITRITE NEGATIVE (NEGATIVE); URINE PROTEIN NEGATIVE (NEGATIVE); URINE UROBILINOGEN NEGATIVE mg/dL (0.2-1.0)
[2018-04-21] MEDS: methylPREDNISolone NA SUCC 40 MG/1 ML VIAL IVPUSH SCH ×2 (02:18→10:52)
[2018-04-21] MEDS: HEPARIN INFUSION - 25,000 UNITS/500 ML INFUS.BAG IVPB SCH (02:22)
[2018-04-21 06:25] LABS: HEMATOCRIT 48.7 % (32.4-45.2); HEMOGLOBIN 16.5 GM/dL (10.7-15.3); MCH 31.9 pg (25.7-33.7); MCHC 33.9 g/dl (32.0-36.0); MEAN CELL VOLUME 94.1 fl (80-96); MEAN PLT VOLUME 8.1 fl (7.5-11.1); PLATELET COUNT 155 K/MM3 (134-434); RBC 5.18 M/mm3 (3.60-5.2); WHITE BLOOD COUNT 10.9 K/mm3 (4.0-10.0)
[2018-04-21 06:45] LABS: ANION GAP 6 (8-16); BLOOD UREA NITROGEN 31 mg/dL (7-18); CALCIUM 8.5 mg/dL (8.5-10.1); CHLORIDE 100 mmol/L (98-107); CO2 34 mmol/L (21-32); CREATININE 1.2 mg/dL (0.55-1.02); GLUCOSE,RANDOM 159 mg/dL (74-106); POTASSIUM 3.4 mmol/L (3.5-5.1); SODIUM 140 mmol/L (136-145)
[2018-04-21] MEDS: ALBUTEROL SO4 2.5/IPRATROPIUM 0.5 INH SOL 3 ML VIAL.NEB. NEB SCH ×4 (08:47→20:45)
[2018-04-21] MEDS ORDERED: PT OWN MED DRAWER 7, Y5N ONE ×3 (10:45→21:00)
[2018-04-21] MEDS: CLOPIDOGREL BISULFATE 75 MG TABLET (FP) PO SCH (10:53)
[2018-04-21] MEDS: BUDESONIDE/FORMETEROL FUMARATE 80/4.5 mcg INHALER IH SCH ×3 (10:53→21:02)
[2018-04-21] MEDS: NICOTINE 21 MG/24 HOURS TOPICAL PATCH TD SCH (10:53)
[2018-04-21] MEDS: amLODIPine BESYLATE 10 MG TABLET (FP) PO SCH (10:53)
--- NOTE | 2018-04-21 12:11 | PN ---
Progress Note, Physician History of Present Illness: pulmonary alert,still dyspneic with min improvement,less cough. chest cta -pe - Current Medication List Current Medications: Active Medications Albuterol Sulfate (Ventolin 0.083% Nebulizer Soln -) 1 amp NEB Q4H PRN PRN Reason: SHORT OF BREATH/WHEEZING Last Admin: 04/20/18 00:46 Dose: 1 amp Albuterol/Ipratropium (Duoneb -) 1 amp NEB RQID [facility] Last Admin: 04/21/18 08:47 Dose: 1 amp Amlodipine Besylate (Norvasc -) 10 mg PO DAILY [facility] Last Admin: 04/21/18 10:53 Dose: 10 mg Atorvastatin Calcium (Lipitor -) 80 mg PO HS [facility] Last Admin: 04/20/18 21:22 Dose: 80 mg Budesonide/Formoterol Fumarate (Symbicort 80/4.5mcg -) 2 puff IH BID [facility] Last Admin: 04/21/18 10:53 Dose: 2 puff Clopidogrel Bisulfate (Plavix -) 75 mg PO DAILY [facility] Last Admin: 04/21/18 10:53 Dose: 75 mg Heparin Sodium (Porcine) (Heparin -) 1,000 unit IVPUSH PRN PRN PRN Reason: Heparin Last Admin: 04/20/18 00:01 Dose: 1,000 unit Heparin Sodium (Porcine) (Heparin -) 5,000 unit IVPUSH PRN PRN PRN Reason: Heparin Last Admin: 04/20/18 00:01 Dose: 5,000 unit Levofloxacin (Levaquin 250 Mg Premixed Ivpb -) 250 mg in 50 mls @ 100 mls/hr IVPB DAILY [facility]; Protocol Last Admin: 04/21/18 10:52 Dose: 100 mls/hr Heparin Sodium/Dextrose (Heparin Infusion -) 25,000 units in 500 mls @ 16 mls/ hr IVPB TITR ALFA; Protocol Last Titration: 04/21/18 10:54 Dose: 800 units/hr, 16 mls/hr Sodium Chloride (Normal Saline -) 1,000 mls @ 75 mls/hr IV ASDIR ALFA Last Admin: 04/20/18 15:40 Dose: 75 mls/hr Losartan Potassium (Cozaar -) 100 mg PO DAILY [facility] Last Admin: 04/20/18 11:38 Dose: 100 mg Methylprednisolone Sodium Succinate (Solu-Medrol -) 60 mg IVPUSH Q6H-IV ALFA Last Admin: 04/21/18 10:52 Dose: 60 mg Nicotine (Nicoderm Patch -) 21 mg TD DAILY [facility] Last Admin: 04/21/18 10:53 Dose: 21 mg Pt's Own Med ( Tudorza (Aclidinum [place]) 1 each IH BID [facility] - Objective Vital Signs: Vital Signs Temperature 97.6 F 04/21/18 06:00 Pulse Rate 62 04/21/18 06:00 Respiratory Rate 17 04/21/18 06:00 Blood Pressure 123/50 04/21/18 06:00 O2 Sat by Pulse Oximetry (%) 85 L 04/20/18 21:00 Constitutional: Yes: Calm, Thin, Other (dyspneic) Eyes: Yes: WNL HENT: Yes: WNL Neck: Yes: WNL Cardiovascular: Yes: Regular Rate and Rhythm, S1, S2 Respiratory: Yes: Rhonchi (few rhonchi) Gastrointestinal: Yes: Normal Bowel Sounds, Soft Extremities: Yes: WNL Edema: No Labs: CBC, BMP 04/21/18 06:00 04/21/18 06:00 INR, PTT INR 0.95 (0.82-1.09) 04/20/18 10:00 Problem List - Problems (1) Acute on chronic respiratory failure with hypercapnia Code(s): J96.22 - ACUTE AND CHRONIC RESPIRATORY FAILURE WITH HYPERCAPNIA (2) COPD exacerbation Code(s): J44.1 - CHRONIC OBSTRUCTIVE PULMONARY DISEASE W (ACUTE) EXACERBATION (3) H/O acute myocardial infarction Code(s): I25.2 - OLD MYOCARDIAL INFARCTION (4) HTN (hypertension) Code(s): I10 - ESSENTIAL (PRIMARY) HYPERTENSION (5) Bladder cancer Code(s): C67.9 - MALIGNANT NEOPLASM OF [place]AD[place], UNSPECIFIED (6) ASHD (arteriosclerotic heart disease) Code(s): I25.10 - ATHSCL HEART DISEASE OF [place] CORONARY ARTERY W/O ANG PCTRS (7) Weight loss Code(s): R63.4 - ABNORMAL WEIGHT LOSS Assessment/Plan IMP ACUTE ON CHRONIC HYPOXEMIC/YPERCAPNEIC RESPIRATORY FAILURE COPD EXACERBATION END STAGE COPD O2 DEPENDENT ASHD S/P STENTS BLADDER CA ON BCG SECONDARY ERYTHROCYTOSIS TOBACCO ABUSE TOPHER PLAN CONTINUE IV STEROIDS INHALED BRONCHODILATORS D/C HEPARIN DRIP O2 TO MAINTAIN SAT 90% OR GREATER ABX MONITOR H+H F/U CHEST X-RAY IVF DR LORD Problem List - Problems (1) Acute on chronic respiratory failure with hypercapnia Code(s): J96.22 - ACUTE AND CHRONIC RESPIRATORY FAILURE WITH HYPERCAPNIA (2) COPD exacerbation Code(s): J44.1 - CHRONIC OBSTRUCTIVE PULMONARY DISEASE W (ACUTE) EXACERBATION (3) H/O acute myocardial infarction Code(s): I25.2 - OLD MYOCARDIAL INFARCTION (4) HTN (hypertension) Code(s): I10 - ESSENTIAL (PRIMARY) HYPERTENSION (5) Bladder cancer Code(s): C67.9 - MALIGNANT NEOPLASM OF [place]AD[place], UNSPECIFIED (6) ASHD (arteriosclerotic heart disease) Code(s): I25.10 - ATHSCL HEART DISEASE OF [place] CORONARY ARTERY W/O ANG PCTRS (7) Weight loss Code(s): R63.4 - ABNORMAL WEIGHT LOSS
--- NOTE | 2018-04-21 13:24 | PN ---
Progress Note, Physician History of Present Illness: Pt seen and examine at bedside. She went for ct scan today. - Current Medication List Current Medications: Active Medications Albuterol Sulfate (Ventolin 0.083% Nebulizer Soln -) 1 amp NEB Q4H PRN PRN Reason: SHORT OF BREATH/WHEEZING Last Admin: 04/20/18 00:46 Dose: 1 amp Albuterol/Ipratropium (Duoneb -) 1 amp NEB RQID [facility] Last Admin: 04/21/18 12:11 Dose: 1 amp Amlodipine Besylate (Norvasc -) 10 mg PO DAILY [facility] Last Admin: 04/21/18 10:53 Dose: 10 mg Atorvastatin Calcium (Lipitor -) 80 mg PO HS [facility] Last Admin: 04/20/18 21:22 Dose: 80 mg Budesonide/Formoterol Fumarate (Symbicort 80/4.5mcg -) 2 puff IH BID [facility] Last Admin: 04/21/18 13:15 Dose: Not Given Clopidogrel Bisulfate (Plavix -) 75 mg PO DAILY [facility] Last Admin: 04/21/18 10:53 Dose: 75 mg Heparin Sodium (Porcine) (Heparin -) 5,000 unit SQ BID [facility] Levofloxacin (Levaquin 250 Mg Premixed Ivpb -) 250 mg in 50 mls @ 100 mls/hr IVPB DAILY [facility]; Protocol Last Admin: 04/21/18 10:52 Dose: 100 mls/hr Sodium Chloride (Normal Saline -) 1,000 mls @ 75 mls/hr IV ASDIR [facility] Last Admin: 04/20/18 15:40 Dose: 75 mls/hr Losartan Potassium (Cozaar -) 100 mg PO DAILY [facility] Last Admin: 04/20/18 11:38 Dose: 100 mg Methylprednisolone Sodium Succinate (Solu-Medrol -) 60 mg IVPUSH Q8H-IV [facility] Nicotine (Nicoderm Patch -) 21 mg TD DAILY [facility] Last Admin: 04/21/18 10:53 Dose: 21 mg Pt's Own Med ( Tudorza (Aclidinum [place]) 1 each IH BID [facility] - Objective Vital Signs: Vital Signs Temperature 97.6 F 04/21/18 06:00 Pulse Rate 68 04/21/18 09:00 Respiratory Rate 20 04/21/18 10:00 Blood Pressure 132/64 04/21/18 09:00 O2 Sat by Pulse Oximetry (%) 87 L 04/21/18 10:00 Constitutional: Yes: Anxious Cardiovascular: Yes: S1, S2 Respiratory: Yes: On Nasal O2, Wheezes Gastrointestinal: Yes: Soft Musculoskeletal: Yes: WNL Edema: No Neurological: Yes: Oriented Psychiatric: Yes: Oriented, Agitated Labs: CBC, BMP 04/21/18 06:00 04/21/18 06:00 INR, PTT INR 0.95 (0.82-1.09) 04/20/18 10:00 Problem List - Problems (1) CKD (chronic kidney disease) Code(s): N18.9 - CHRONIC KIDNEY DISEASE, UNSPECIFIED (2) ASHD (arteriosclerotic heart disease) Code(s): I25.10 - ATHSCL HEART DISEASE OF [place] CORONARY ARTERY W/O ANG PCTRS (3) Acute on chronic respiratory failure with hypercapnia Code(s): J96.22 - ACUTE AND CHRONIC RESPIRATORY FAILURE WITH HYPERCAPNIA (4) Bladder cancer Code(s): C67.9 - MALIGNANT NEOPLASM OF [place]AD[place], UNSPECIFIED (5) CAD (coronary artery disease) Code(s): I25.10 - ATHSCL HEART DISEASE OF [place] CORONARY ARTERY W/O ANG PCTRS (6) COPD exacerbation Code(s): J44.1 - CHRONIC OBSTRUCTIVE PULMONARY DISEASE W (ACUTE) EXACERBATION (7) COPD (chronic obstructive pulmonary disease) Code(s): J44.9 - CHRONIC OBSTRUCTIVE PULMONARY DISEASE, UNSPECIFIED Assessment/Plan Current Medications Generic Name Dose Route Start Last Admin Trade Name Freq PRN Reason Stop Dose Admin Albuterol Sulfate 1 amp 04/19/18 18:29 04/20/18 00:46 Ventolin 0.083% Nebulizer Soln - NEB 1 amp Q4H PRN Administration SHORT OF BREATH/WHEEZING Albuterol/Ipratropium 1 amp 04/19/18 20:00 04/21/18 12:11 Duoneb - NEB 1 amp RQID [facility] Administration Amlodipine Besylate 10 mg 04/20/18 10:00 04/21/18 10:53 Norvasc - PO 10 mg DAILY [facility] Administration Atorvastatin Calcium 80 mg 04/19/18 22:00 04/20/18 21:22 Lipitor - PO 80 mg HS [facility] Administration Budesonide/Formoterol Fumarate 2 puff 04/19/18 22:00 04/21/18 13:15 Symbicort 80/4.5mcg - IH Not Given BID [facility] Clopidogrel Bisulfate 75 mg 04/20/18 10:00 04/21/18 10:53 Plavix - PO 75 mg DAILY [facility] Administration Heparin Sodium (Porcine) 5,000 unit 04/21/18 22:00 Heparin - SQ BID [facility] Levofloxacin 250 mg in 50 mls @ 100 mls/hr 04/20/18 10:00 04/21/18 10:52 Levaquin 250 Mg Premixed Ivpb - IVPB 100 mls/hr DAILY [facility] Administration Protocol Sodium Chloride 1,000 mls @ 75 mls/hr 04/20/18 15:00 04/20/18 15:40 Normal Saline - IV 75 mls/hr ASDIR [facility] Administration Losartan Potassium 100 mg 04/20/18 10:00 04/20/18 11:38 Cozaar - PO 100 mg DAILY [facility] Administration Methylprednisolone Sodium Succinate 60 mg 04/21/18 18:00 Solu-Medrol - IVPUSH Q8H-IV [facility] Nicotine 21 mg 04/20/18 10:00 04/21/18 10:53 Nicoderm Patch - TD 21 mg DAILY [facility] Administration Pt's Own Med ( 1 each 04/19/18 22:00 Tudorza (Aclidinum [facility]H [place]) BID [facility] Laboratory Tests 05/09/16 10/29/16 10/30/16 14:50 11:39 07:30 Creat Clearance w eGFR 54.81 49.10 49.10 Urine Protein Urine Blood Ur Random Sodium 10/31/16 04/19/18 04/20/18 06:25 16:38 07:20 Creat Clearance w eGFR 54.81 44.16 40.26 Urine Protein Urine Blood Ur Random Sodium 04/20/18 04/20/18 22:20 22:20 Creat Clearance w eGFR Urine Protein Negative Urine Blood Negative Ur Random Sodium 12 Impression 1. CKD stage 3 with worsening creatinine 2. resp failure requiring oxygen 3. HTN 4. CAD 5. COPD 6. hyperlipidemia 7. bladder cancer 8. 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
[2018-04-21] MEDS ORDERED: POTASSIUM CHLORIDE TABS 20 MEQ TABLET.ER (FP) PO ONE (14:30)
[2018-04-21] MEDS: SODIUM CHLORIDE 1,000 ML IV SCH (15:35)
--- NOTE | 2018-04-21 16:45 | PN ---
Progress Note (short form) - Note Progress Note: S: 73 year old female admitted with increasing dyspnea associated with palpitations and found to have bilateral consolidation and atelectasis, possibility of pneumonic infiltrate is raised. Known case of hyperlipidemia, CAD s/p [place], hypertension, HCVD. Active Medications Albuterol Sulfate (Ventolin 0.083% Nebulizer Soln -) 1 amp NEB Q4H PRN PRN Reason: SHORT OF BREATH/WHEEZING Last Admin: 04/20/18 00:46 Dose: 1 amp Albuterol/Ipratropium (Duoneb -) 1 amp NEB RQID [facility] Last Admin: 04/21/18 15:55 Dose: 1 amp Amlodipine Besylate (Norvasc -) 10 mg PO DAILY [facility] Last Admin: 04/21/18 10:53 Dose: 10 mg Atorvastatin Calcium (Lipitor -) 80 mg PO HS [facility] Last Admin: 04/20/18 21:22 Dose: 80 mg Budesonide/Formoterol Fumarate (Symbicort 80/4.5mcg -) 2 puff IH BID [facility] Last Admin: 04/21/18 13:15 Dose: Not Given Clopidogrel Bisulfate (Plavix -) 75 mg PO DAILY [facility] Last Admin: 04/21/18 10:53 Dose: 75 mg Heparin Sodium (Porcine) (Heparin -) 5,000 unit SQ BID [facility] Levofloxacin (Levaquin 250 Mg Premixed Ivpb -) 250 mg in 50 mls @ 100 mls/hr IVPB DAILY [facility]; Protocol Last Admin: 04/21/18 10:52 Dose: 100 mls/hr Sodium Chloride (Normal Saline -) 1,000 mls @ 75 mls/hr IV ASDIR [facility] Last Admin: 04/21/18 15:35 Dose: Not Given Losartan Potassium (Cozaar -) 100 mg PO DAILY [facility] Last Admin: 04/20/18 11:38 Dose: 100 mg Methylprednisolone Sodium Succinate (Solu-Medrol -) 60 mg IVPUSH Q8H-IV [facility] Nicotine (Nicoderm Patch -) 21 mg TD DAILY [facility] Last Admin: 04/21/18 10:53 Dose: 21 mg Pt's Own Med ( Tudorza (Aclidinum [place]) 1 each IH BID [facility] O: 73 year old female was in no acute distress. No pallor, cyanosis, clubbing, or jaundice. Last Vital Signs Temp Pulse Resp BP Pulse Ox 98.8 F 86 22 124/80 87 L 04/21/18 14:05 04/21/18 14:05 04/21/18 14:05 04/21/18 14:05 04/21/18 10:00 NECK: Supple, no JVD, negative HJR, carotids were equal and upstrokes were normal, no thyromegaly appreciated. HEART: PMI was in the 5th intercostal space, no heaves or thrills, distant heart sounds, no murmur or gallops were appreciated. LUNGS: Scattered crepitations and expiratory wheezing. Decreased breath sounds bilaterally. ABDOMEN: Soft, nontender, no hepatosplenomegaly appreciated, and no palpable masses were felt. EXTREMITIES: No calf tenderness or dependent edema. DP and PT pulses could not be palpated CBC, BMP 04/21/18 06:00 04/21/18 06:00 Laboratory Results - last 24 hr 04/20/18 04/20/18 04/20/18 22:20 22:20 22:20 WBC RBC Hgb Hct MCV MCH MCHC RDW Plt Count MPV PTT (Actin FS) Sodium Potassium Chloride Carbon Dioxide Anion Gap BUN Creatinine Creat Clearance w eGFR Random Glucose Calcium Urine Color Cancelled Ltyellow Urine Appearance Cancelled Clear Urine pH Cancelled 5.0 Ur Specific [place] Cancelled 1.016 Urine Protein Cancelled Negative Urine Glucose (UA) Cancelled Negative Urine Ketones Cancelled Negative Urine Blood Cancelled Negative Urine Nitrite Cancelled Negative Urine Bilirubin Cancelled Negative Urine Urobilinogen Cancelled Negative Ur Leukocyte Esterase Cancelled Negative Ur Random Sodium 12 Ur Random Potassium 31.2 Ur Random Chloride < 10 Urine Creatinine 04/20/18 04/21/18 04/21/18 22:20 06:00 06:00 WBC 10.9 H RBC 5.18 Hgb 16.5 H Hct 48.7 H MCV 94.1 MCH 31.9 MCHC 33.9 RDW 15.0 Plt Count 155 MPV 8.1 PTT (Actin FS) 65.1 H Sodium Potassium Chloride Carbon Dioxide Anion Gap BUN Creatinine Creat Clearance w eGFR Random Glucose Calcium Urine Color Urine Appearance Urine pH Ur Specific [place] Urine Protein Urine Glucose (UA) Urine Ketones Urine Blood Urine Nitrite Urine Bilirubin Urine Urobilinogen Ur Leukocyte Esterase Ur Random Sodium Ur Random Potassium Ur Random Chloride Urine Creatinine 84.3 04/21/18 06:00 WBC RBC Hgb Hct MCV MCH MCHC RDW Plt Count MPV PTT (Actin FS) Sodium 140 Potassium 3.4 L Chloride 100 Carbon Dioxide 34 H Anion Gap 6 L BUN 31 H Creatinine 1.2 H Creat Clearance w eGFR 44.16 Random Glucose 159 H Calcium 8.5 Urine Color Urine Appearance Urine pH Ur Specific [place] Urine Protein Urine Glucose (UA) Urine Ketones Urine Blood Urine Nitrite Urine Bilirubin Urine Urobilinogen Ur Leukocyte Esterase Ur Random Sodium Ur Random Potassium Ur Random Chloride Urine Creatinine Chest CTA: -No evidence of PE -Mild COPD with area of consolidation/atelectasis within both lungs -Distal thoracic and proximal aortic aneurysms (thrombus is identified within the aneurysm. See discussion on CTA) -Bilateral adrenal masses most likely representing benign adenomata -Cholelithiasis Impression: 1. COPD, bilateral pneumonias need to be excluded. 2. CAD, remote PCI w/o angina 3. Chronic diastolic CHF 4. Hypertension, HCVD 5. HPL 6. Smoker 7. Aortic aneurysms. 8. Polycythemia. 9. Renal insufficiency. Recommendations: 1. Continue current medications. 2. Pulmonary follow up in progress. 3. Follow up by Dr. Chaudhari. Documentation prepared by Tanika Gee, acting as a medical director occupational health for Michele Potts MD.
--- NOTE | 2018-04-21 17:11 | PN ---
Progress Note, Physician Chief Complaint: AWAKE ALERT EATING DINNER SOB COUGHING WEAK - Current Medication List Current Medications: Active Medications Albuterol Sulfate (Ventolin 0.083% Nebulizer Soln -) 1 amp NEB Q4H PRN PRN Reason: SHORT OF BREATH/WHEEZING Last Admin: 04/20/18 00:46 Dose: 1 amp Albuterol/Ipratropium (Duoneb -) 1 amp NEB RQID [facility] Last Admin: 04/21/18 15:55 Dose: 1 amp Amlodipine Besylate (Norvasc -) 10 mg PO DAILY [facility] Last Admin: 04/21/18 10:53 Dose: 10 mg Atorvastatin Calcium (Lipitor -) 80 mg PO HS [facility] Last Admin: 04/20/18 21:22 Dose: 80 mg Budesonide/Formoterol Fumarate (Symbicort 80/4.5mcg -) 2 puff IH BID [facility] Last Admin: 04/21/18 13:15 Dose: Not Given Clopidogrel Bisulfate (Plavix -) 75 mg PO DAILY [facility] Last Admin: 04/21/18 10:53 Dose: 75 mg Heparin Sodium (Porcine) (Heparin -) 5,000 unit SQ BID [facility] Levofloxacin (Levaquin 250 Mg Premixed Ivpb -) 250 mg in 50 mls @ 100 mls/hr IVPB DAILY [facility]; Protocol Last Admin: 04/21/18 10:52 Dose: 100 mls/hr Sodium Chloride (Normal Saline -) 1,000 mls @ 75 mls/hr IV ASDIR [facility] Last Admin: 04/21/18 15:35 Dose: Not Given Losartan Potassium (Cozaar -) 100 mg PO DAILY [facility] Last Admin: 04/20/18 11:38 Dose: 100 mg Methylprednisolone Sodium Succinate (Solu-Medrol -) 60 mg IVPUSH Q8H-IV [facility] Nicotine (Nicoderm Patch -) 21 mg TD DAILY [facility] Last Admin: 04/21/18 10:53 Dose: 21 mg Pt's Own Med ( Tudorza (Aclidinum [place]) 1 each IH BID [facility] - Objective Vital Signs: Vital Signs Temperature 98.8 F 04/21/18 14:05 Pulse Rate 86 04/21/18 14:05 Respiratory Rate 22 04/21/18 14:05 Blood Pressure 124/80 04/21/18 14:05 O2 Sat by Pulse Oximetry (%) 87 L 04/21/18 10:00 Constitutional: Yes: Moderate Distress Eyes: Yes: WNL HENT: Yes: WNL Neck: Yes: WNL Cardiovascular: Yes: Tachycardia Respiratory: Yes: Cough, Diminished, On Nasal O2, SOB Gastrointestinal: Yes: WNL Genitourinary: Yes: WNL Musculoskeletal: Yes: Muscle Weakness Extremities: Yes: WNL Edema: No Peripheral Pulses WNL: Yes Integumentary: Yes: WNL Wound/Incision: Yes: Clean/Dry Neurological: Yes: WNL ...Motor Strength: WNL Psychiatric: Yes: WNL Labs: CBC, BMP 04/21/18 06:00 04/21/18 06:00 INR, PTT INR 0.95 (0.82-1.09) 04/20/18 10:00 Problem List - Problems (1) ASHD (arteriosclerotic heart disease) Code(s): I25.10 - ATHSCL HEART DISEASE OF [place] CORONARY ARTERY W/O ANG PCTRS (2) Acute on chronic respiratory failure with hypercapnia Code(s): J96.22 - ACUTE AND CHRONIC RESPIRATORY FAILURE WITH HYPERCAPNIA (3) Bladder cancer Code(s): C67.9 - MALIGNANT NEOPLASM OF [place]AD[place], UNSPECIFIED (4) CAD (coronary artery disease) Code(s): I25.10 - ATHSCL HEART DISEASE OF [place] CORONARY ARTERY W/O ANG PCTRS (5) CKD (chronic kidney disease) Code(s): N18.9 - CHRONIC KIDNEY DISEASE, UNSPECIFIED (6) COPD exacerbation Code(s): J44.1 - CHRONIC OBSTRUCTIVE PULMONARY DISEASE W (ACUTE) EXACERBATION (7) DVT prophylaxis Code(s): [id number] - (8) Dyspnea Code(s): R06.00 - DYSPNEA, UNSPECIFIED (9) Tobacco abuse Code(s): Z72.0 - TOBACCO USE (10) H/O acute myocardial infarction Code(s): I25.2 - OLD MYOCARDIAL INFARCTION Assessment/Plan STEROIDS IV 02 SUPPORT COPD END STAGE 02 DEPENDENT PE WORKUP NEGATIVE CTA LEVAQUIN?? PNA? RENAL F/U APPRECIATED PT EVAL SNF
[2018-04-21] MEDS: methylPREDNISolone NA SUCC 125 MG/2 ML VIAL IVPUSH SCH (18:35)
[2018-04-21] MEDS: HEPARIN NA (PORCINE) 5,000 UNITS/ML 1ML VIAL SQ SCH (21:02)
[2018-04-21] MEDS: ATORVASTATIN CA 80 MG TABLET (FP) PO SCH (21:02)
[2018-04-22] MEDS: methylPREDNISolone NA SUCC 125 MG/2 ML VIAL IVPUSH SCH ×3 (02:12→17:28)
[2018-04-22] MEDS: ALBUTEROL SO4 0.083% IH SOL 2.5 MG/3 ML VIAL.NEB. NEB PRN (04:34)
[2018-04-22] MEDS: SODIUM CHLORIDE 1,000 ML IV SCH (05:36)
[2018-04-22] MEDS ORDERED: PT OWN MED DRAWER 7, Y5N ONE ×3 (06:37→21:24)
[2018-04-22 06:46] LABS: HEMATOCRIT 48.7 % (32.4-45.2); HEMOGLOBIN 16.2 GM/dL (10.7-15.3); MCH 31.6 pg (25.7-33.7); MCHC 33.1 g/dl (32.0-36.0); MEAN CELL VOLUME 95.4 fl (80-96); MEAN PLT VOLUME 7.8 fl (7.5-11.1); PLATELET COUNT 148 K/MM3 (134-434); RBC 5.11 M/mm3 (3.60-5.2); RDW 15.5 % (11.6-15.6)
[2018-04-22 06:54] LABS: ANION GAP 8 (8-16); BLOOD UREA NITROGEN 26 mg/dL (7-18); CALCIUM 8.4 mg/dL (8.5-10.1); CHLORIDE 105 mmol/L (98-107); CO2 31 mmol/L (21-32); CREATININE 1.1 mg/dL (0.55-1.02); GLUCOSE,RANDOM 134 mg/dL (74-106); POTASSIUM 4.4 mmol/L (3.5-5.1); SODIUM 144 mmol/L (136-145)
[2018-04-22] MEDS: ALBUTEROL SO4 2.5/IPRATROPIUM 0.5 INH SOL 3 ML VIAL.NEB. NEB SCH ×4 (07:21→20:30)
[2018-04-22] MEDS: amLODIPine BESYLATE 10 MG TABLET (FP) PO SCH (09:17)
[2018-04-22] MEDS: NICOTINE 21 MG/24 HOURS TOPICAL PATCH TD SCH (09:17)
[2018-04-22] MEDS: CLOPIDOGREL BISULFATE 75 MG TABLET (FP) PO SCH (09:21)
[2018-04-22] MEDS: HEPARIN NA (PORCINE) 5,000 UNITS/ML 1ML VIAL SQ SCH ×2 (09:21→21:31)
[2018-04-22] MEDS: BUDESONIDE/FORMETEROL FUMARATE 80/4.5 mcg INHALER IH SCH ×2 (09:23→21:31)
--- NOTE | 2018-04-22 10:06 | PN ---
Progress Note (short form) - Note Progress Note: s: no cp palps dizzy; sob persists o: Vital Signs Period Temp Pulse Resp BP Sys/Lock Pulse Ox Last 24 Hr 97.7 F-99.1 F 68-86 18-24 124-146/59-80 84 Constitutional: Yes: Well Nourished, No Distress Eyes: No: Sclera Icterus Respiratory: Yes: scattered wheeze, nl eff Gastrointestinal: Yes: Normal Bowel Sounds. No: Distention, Hepatomegaly, Palpable Mass, Tenderness Cardiovascular: Yes: Regular Rate and Rhythm PMI: Non-Displaced Heart Sounds: Yes: S1, S2. No: Gallop Murmur: No: Systolic Murmur, Diastolic Murmur Extremities: No: Cold, Cyanosis Edema: No Integumentary: No: Jaundice Neurological: Yes: Alert, Oriented (x3) Psychiatric: No: Agitated Current Medications Generic Name Dose Route Start Last Admin Trade Name Freq PRN Reason Stop Dose Admin Albuterol Sulfate 1 amp 04/19/18 18:29 04/22/18 04:34 Ventolin 0.083% Nebulizer Soln - NEB 1 amp Q4H PRN Administration SHORT OF BREATH/WHEEZING Albuterol/Ipratropium 1 amp 04/19/18 20:00 04/22/18 07:21 Duoneb - NEB 1 amp RQID [facility] Administration Amlodipine Besylate 10 mg 04/20/18 10:00 04/22/18 09:17 Norvasc - PO 10 mg DAILY [facility] Administration Atorvastatin Calcium 80 mg 04/19/18 22:00 04/21/18 21:02 Lipitor - PO 80 mg HS [facility] Administration Budesonide/Formoterol Fumarate 2 puff 04/19/18 22:00 04/22/18 09:23 Symbicort 80/4.5mcg - IH 2 puff BID [facility] Administration Clopidogrel Bisulfate 75 mg 04/20/18 10:00 04/22/18 09:21 Plavix - PO 75 mg DAILY [facility] Administration Heparin Sodium (Porcine) 5,000 unit 04/21/18 22:00 04/22/18 09:21 Heparin - SQ 5,000 unit BID [facility] Administration Levofloxacin 250 mg in 50 mls @ 100 mls/hr 04/20/18 10:00 04/22/18 09:18 Levaquin 250 Mg Premixed Ivpb - IVPB 100 mls/hr DAILY [facility] Administration Protocol Losartan Potassium 100 mg 04/20/18 10:00 04/20/18 11:38 Cozaar - PO 100 mg DAILY [facility] Administration Methylprednisolone Sodium Succinate 60 mg 04/21/18 18:00 04/22/18 09:17 Solu-Medrol - IVPUSH 60 mg Q8H-IV [facility] Administration Nicotine 21 mg 04/20/18 10:00 04/22/18 09:17 Nicoderm Patch - TD 21 mg DAILY [facility] Administration Pt's Own Med ( 1 each 04/19/18 22:00 Tudorza (Aclidinum IH [place]) BID [facility] CBC, BMP 04/22/18 06:00 04/22/18 06:00 cxr: no chf ecg: sr, nl intervals, no ischemic changes echo 03/2016: tds, mild dec lvef, nl rv, no sig valve path Assessment/Plan sob, cough, copd: -getting abx, iv steroids for copd, pulm following chronic CAD, remote pci, w/o angina: -mult prior stents (prox and mid LAD, entire RCA and RPDA) all patent on cath 2013 -no angina (chronic sob with chest pressure is copd sx--present prior to cath and unchanged since) -no signs acs -cont plavix, statin, arb chronic diast chf -borderline depressed LVEF (45% on v-gram, 50% echo 2015) with moderately incr' d LVEDP at cath (24) -never clinical chf, no sob response to trial of lasix in past -current exam--clinically euvolemic -no diuretics needed HTN: -known bp lability from anxiety at times -reasonably controlled here HPL: -cont home statin +cigs: -previously counselled on cessation many times, not interested in quitting descending thoracic aortic aneurysm: -mild, stable size on 12/2017 ct chest -cont bp control
--- NOTE | 2018-04-22 11:01 | PN ---
Progress Note, Physician Chief Complaint: AWAKE ALERT FEELING BETTER STILL SOB WITH COUGH - Current Medication List Current Medications: Active Medications Albuterol Sulfate (Ventolin 0.083% Nebulizer Soln -) 1 amp NEB Q4H PRN PRN Reason: SHORT OF BREATH/WHEEZING Last Admin: 04/22/18 04:34 Dose: 1 amp Albuterol/Ipratropium (Duoneb -) 1 amp NEB RQID [facility] Last Admin: 04/22/18 07:21 Dose: 1 amp Amlodipine Besylate (Norvasc -) 10 mg PO DAILY [facility] Last Admin: 04/22/18 09:17 Dose: 10 mg Atorvastatin Calcium (Lipitor -) 80 mg PO HS [facility] Last Admin: 04/21/18 21:02 Dose: 80 mg Budesonide/Formoterol Fumarate (Symbicort 80/4.5mcg -) 2 puff IH BID [facility] Last Admin: 04/22/18 09:23 Dose: 2 puff Clopidogrel Bisulfate (Plavix -) 75 mg PO DAILY [facility] Last Admin: 04/22/18 09:21 Dose: 75 mg Heparin Sodium (Porcine) (Heparin -) 5,000 unit SQ BID [facility] Last Admin: 04/22/18 09:21 Dose: 5,000 unit Levofloxacin (Levaquin 250 Mg Premixed Ivpb -) 250 mg in 50 mls @ 100 mls/hr IVPB DAILY [facility]; Protocol Last Admin: 04/22/18 09:18 Dose: 100 mls/hr Losartan Potassium (Cozaar -) 100 mg PO DAILY [facility] Last Admin: 04/20/18 11:38 Dose: 100 mg Methylprednisolone Sodium Succinate (Solu-Medrol -) 60 mg IVPUSH Q8H-IV [facility] Last Admin: 04/22/18 09:17 Dose: 60 mg Nicotine (Nicoderm Patch -) 21 mg TD DAILY [facility] Last Admin: 04/22/18 09:17 Dose: 21 mg Pt's Own Med ( Tudorza (Aclidinum [place]) 1 each IH BID [facility] - Objective Vital Signs: Vital Signs Temperature 98.0 F 04/22/18 10:00 Pulse Rate 71 04/22/18 10:00 Respiratory Rate 22 04/22/18 10:00 Blood Pressure 142/62 04/22/18 10:00 O2 Sat by Pulse Oximetry (%) 88 L 04/22/18 09:00 Constitutional: Yes: Mild Distress Eyes: Yes: WNL HENT: Yes: WNL Neck: Yes: WNL Cardiovascular: Yes: WNL Respiratory: Yes: Cough, Diminished, On Nasal O2, Rhonchi, SOB Gastrointestinal: Yes: WNL Genitourinary: Yes: WNL Musculoskeletal: Yes: Muscle Weakness Extremities: Yes: WNL Edema: No Peripheral Pulses WNL: Yes Integumentary: Yes: Venous Stasis Changes Wound/Incision: Yes: Clean/Dry Neurological: Yes: WNL ...Motor Strength: WNL Psychiatric: Yes: Other Labs: CBC, BMP 04/22/18 06:00 04/22/18 06:00 INR, PTT INR 0.95 (0.82-1.09) 04/20/18 10:00 Problem List - Problems (1) ASHD (arteriosclerotic heart disease) Code(s): I25.10 - ATHSCL HEART DISEASE OF [place] CORONARY ARTERY W/O ANG PCTRS (2) Acute on chronic respiratory failure with hypercapnia Code(s): J96.22 - ACUTE AND CHRONIC RESPIRATORY FAILURE WITH HYPERCAPNIA (3) Bladder cancer Code(s): C67.9 - MALIGNANT NEOPLASM OF [place], UNSPECIFIED (4) CAD (coronary artery disease) Code(s): I25.10 - ATHSCL HEART DISEASE OF [place] CORONARY ARTERY W/O ANG PCTRS (5) CKD (chronic kidney disease) Code(s): N18.9 - CHRONIC KIDNEY DISEASE, UNSPECIFIED (6) COPD exacerbation Code(s): J44.1 - CHRONIC OBSTRUCTIVE PULMONARY DISEASE W (ACUTE) EXACERBATION (7) DVT prophylaxis Code(s): [id number] - (8) Dyspnea Code(s): R06.00 - DYSPNEA, UNSPECIFIED (9) Tobacco abuse Code(s): Z72.0 - TOBACCO USE (10) H/O acute myocardial infarction Code(s): I25.2 - OLD MYOCARDIAL INFARCTION (11) Anxiety Code(s): F41.9 - ANXIETY DISORDER, UNSPECIFIED Assessment/Plan LEVAQUIN CAN STOP XANAX PRN STEROID IV PER PULM NEBS 02 SUPPORT DC PLANNING TO SNF
[2018-04-22] MEDS: ALPRAZolam 0.25 MG TABLET PO SCH ×2 (11:32→21:30)
--- NOTE | 2018-04-22 14:09 | PN ---
Progress Note, Physician History of Present Illness: Pt seen and examined at bedside. She is awake and alert. She still complains of shortness of breath. - Current Medication List Current Medications: Active Medications Albuterol Sulfate (Ventolin 0.083% Nebulizer Soln -) 1 amp NEB Q4H PRN PRN Reason: SHORT OF BREATH/WHEEZING Last Admin: 04/22/18 04:34 Dose: 1 amp Albuterol/Ipratropium (Duoneb -) 1 amp NEB RQID [facility] Last Admin: 04/22/18 11:20 Dose: 1 amp Alprazolam (Xanax -) 0.25 mg PO BID [facility] Last Admin: 04/22/18 11:32 Dose: 0.25 mg Amlodipine Besylate (Norvasc -) 10 mg PO DAILY [facility] Last Admin: 04/22/18 09:17 Dose: 10 mg Atorvastatin Calcium (Lipitor -) 80 mg PO HS [facility] Last Admin: 04/21/18 21:02 Dose: 80 mg Budesonide/Formoterol Fumarate (Symbicort 80/4.5mcg -) 2 puff IH BID [facility] Last Admin: 04/22/18 09:23 Dose: 2 puff Clopidogrel Bisulfate (Plavix -) 75 mg PO DAILY [facility] Last Admin: 04/22/18 09:21 Dose: 75 mg Heparin Sodium (Porcine) (Heparin -) 5,000 unit SQ BID [facility] Last Admin: 04/22/18 09:21 Dose: 5,000 unit Levofloxacin (Levaquin 250 Mg Premixed Ivpb -) 250 mg in 50 mls @ 100 mls/hr IVPB DAILY [facility]; Protocol Last Admin: 04/22/18 09:18 Dose: 100 mls/hr Losartan Potassium (Cozaar -) 100 mg PO DAILY [facility] Last Admin: 04/20/18 11:38 Dose: 100 mg Methylprednisolone Sodium Succinate (Solu-Medrol -) 60 mg IVPUSH Q8H-IV [facility] Last Admin: 04/22/18 09:17 Dose: 60 mg Nicotine (Nicoderm Patch -) 21 mg TD DAILY [facility] Last Admin: 04/22/18 09:17 Dose: 21 mg Pt's Own Med ( Tudorza (Aclidinum [place]) 1 each IH BID [facility] - Objective Vital Signs: Vital Signs Temperature 98.0 F 04/22/18 10:00 Pulse Rate 71 04/22/18 10:00 Respiratory Rate 22 04/22/18 10:00 Blood Pressure 142/62 04/22/18 10:00 O2 Sat by Pulse Oximetry (%) 88 L 04/22/18 09:00 Constitutional: Yes: Anxious Eyes: Yes: Conjunctiva Clear HENT: Yes: Atraumatic Cardiovascular: Yes: S1, S2 Respiratory: Yes: On Venti-Mask, Wheezes Gastrointestinal: Yes: Soft Genitourinary: Yes: WNL Musculoskeletal: Yes: WNL Extremities: Yes: WNL Edema: No Neurological: Yes: Oriented Psychiatric: Yes: Oriented Labs: CBC, BMP 04/22/18 06:00 04/22/18 06:00 INR, PTT INR 0.95 (0.82-1.09) 04/20/18 10:00 Problem List - Problems (1) CKD (chronic kidney disease) Code(s): N18.9 - CHRONIC KIDNEY DISEASE, UNSPECIFIED (2) ASHD (arteriosclerotic heart disease) Code(s): I25.10 - ATHSCL HEART DISEASE OF [place] CORONARY ARTERY W/O ANG PCTRS (3) Acute on chronic respiratory failure with hypercapnia Code(s): J96.22 - ACUTE AND CHRONIC RESPIRATORY FAILURE WITH HYPERCAPNIA (4) Bladder cancer Code(s): C67.9 - MALIGNANT NEOPLASM OF BLADDER, UNSPECIFIED (5) CAD (coronary artery disease) Code(s): I25.10 - ATHSCL HEART DISEASE OF [place] CORONARY ARTERY W/O ANG PCTRS (6) COPD exacerbation Code(s): J44.1 - CHRONIC OBSTRUCTIVE PULMONARY DISEASE W (ACUTE) EXACERBATION (7) COPD (chronic obstructive pulmonary disease) Code(s): J44.9 - CHRONIC OBSTRUCTIVE PULMONARY DISEASE, UNSPECIFIED Assessment/Plan Current Medications Generic Name Dose Route Start Last Admin Trade Name Freq PRN Reason Stop Dose Admin Albuterol Sulfate 1 amp 04/19/18 18:29 04/22/18 04:34 Ventolin 0.083% Nebulizer Soln - NEB 1 amp Q4H PRN Administration SHORT OF BREATH/WHEEZING Albuterol/Ipratropium 1 amp 04/19/18 20:00 04/22/18 11:20 Duoneb - NEB 1 amp RQID [facility] Administration Alprazolam 0.25 mg 04/22/18 11:15 04/22/18 11:32 Xanax - PO 0.25 mg BID [facility] Administration Amlodipine Besylate 10 mg 04/20/18 10:00 04/22/18 09:17 Norvasc - PO 10 mg DAILY [facility] Administration Atorvastatin Calcium 80 mg 04/19/18 22:00 04/21/18 21:02 Lipitor - PO 80 mg HS [facility] Administration Budesonide/Formoterol Fumarate 2 puff 04/19/18 22:00 04/22/18 09:23 Symbicort 80/4.5mcg - IH 2 puff BID [facility] Administration Clopidogrel Bisulfate 75 mg 04/20/18 10:00 04/22/18 09:21 Plavix - PO 75 mg DAILY [facility] Administration Heparin Sodium (Porcine) 5,000 unit 04/21/18 22:00 04/22/18 09:21 Heparin - SQ 5,000 unit BID [facility] Administration Levofloxacin 250 mg in 50 mls @ 100 mls/hr 04/20/18 10:00 04/22/18 09:18 Levaquin 250 Mg Premixed Ivpb - IVPB 100 mls/hr DAILY [facility] Administration Protocol Losartan Potassium 100 mg 04/20/18 10:00 04/20/18 11:38 Cozaar - PO 100 mg DAILY [facility] Administration Methylprednisolone Sodium Succinate 60 mg 04/21/18 18:00 04/22/18 09:17 Solu-Medrol - IVPUSH 60 mg Q8H-IV [facility] Administration Nicotine 21 mg 04/20/18 10:00 04/22/18 09:17 Nicoderm Patch - TD 21 mg DAILY [facility] Administration Pt's Own Med ( 1 each 04/19/18 22:00 Tudorza (Aclidinum IH [place]) BID [facility] Impression 1. CKD stage 3 with worsening creatinine 2. resp failure requiring oxygen 3. HTN 4. CAD 5. COPD 6. hyperlipidemia 7. bladder cancer 8. active smoker Plan - repeat labs in am - renal function is stable so far - steroids with taper per pulmonary - ua neg for blood or protein - avoid nsaids - ct was neg for PE Dr Herring
--- NOTE | 2018-04-22 14:18 | PN ---
Progress Note (short form) - Note Progress Note: SOB on VM with NC O2. No change in breathing. No CP. Intake & Output 04/19/18 04/20/18 04/21/18 04/22/18 23:59 23:59 23:59 23:59 Intake Total 350 4015 1225 Balance 350 4015 1225 Weight 104 lb Last Vital Signs Temp Pulse Resp BP Pulse Ox 98.0 F 71 22 142/62 88 L 04/22/18 10:00 04/22/18 10:00 04/22/18 10:00 04/22/18 10:00 04/22/18 09:00 Active Medications Albuterol Sulfate (Ventolin 0.083% Nebulizer Soln -) 1 amp NEB Q4H PRN PRN Reason: SHORT OF BREATH/WHEEZING Last Admin: 04/22/18 04:34 Dose: 1 amp Albuterol/Ipratropium (Duoneb -) 1 amp NEB RQID [facility] Last Admin: 04/22/18 11:20 Dose: 1 amp Alprazolam (Xanax -) 0.25 mg PO BID [facility] Last Admin: 04/22/18 11:32 Dose: 0.25 mg Amlodipine Besylate (Norvasc -) 10 mg PO DAILY [facility] Last Admin: 04/22/18 09:17 Dose: 10 mg Atorvastatin Calcium (Lipitor -) 80 mg PO HS [facility] Last Admin: 04/21/18 21:02 Dose: 80 mg Budesonide/Formoterol Fumarate (Symbicort 80/4.5mcg -) 2 puff IH BID [facility] Last Admin: 04/22/18 09:23 Dose: 2 puff Clopidogrel Bisulfate (Plavix -) 75 mg PO DAILY [facility] Last Admin: 04/22/18 09:21 Dose: 75 mg Heparin Sodium (Porcine) (Heparin -) 5,000 unit SQ BID [facility] Last Admin: 04/22/18 09:21 Dose: 5,000 unit Levofloxacin (Levaquin 250 Mg Premixed Ivpb -) 250 mg in 50 mls @ 100 mls/hr IVPB DAILY [facility]; Protocol Last Admin: 04/22/18 09:18 Dose: 100 mls/hr Losartan Potassium (Cozaar -) 100 mg PO DAILY [facility] Last Admin: 04/20/18 11:38 Dose: 100 mg Methylprednisolone Sodium Succinate (Solu-Medrol -) 60 mg IVPUSH Q8H-IV [facility] Last Admin: 04/22/18 09:17 Dose: 60 mg Nicotine (Nicoderm Patch -) 21 mg TD DAILY [facility] Last Admin: 04/22/18 09:17 Dose: 21 mg Pt's Own Med ( Tudorza (Aclidinum [place]) 1 each IH BID [facility] Constitutional: Yes: Tachypneic Eyes: Yes: WNL HENT: Yes: WNL Neck: Yes: WNL Cardiovascular: Yes: Regular Rate and Rhythm, S1, S2 Respiratory: Yes: Bilateral coarse Rhonchi, no wheeze Gastrointestinal: Yes: Normal Bowel Sounds, Soft Extremities: Yes: WNL Edema: No Labs: Laboratory Results - last 24 hr 04/22/18 04/22/18 04/22/18 06:00 06:00 06:00 WBC 11.0 H RBC 5.11 Hgb 16.2 H Hct 48.7 H MCV 95.4 MCH 31.6 MCHC 33.1 RDW 15.5 Plt Count 148 MPV 7.8 PTT (Actin FS) 27.1 D Sodium 144 Potassium 4.4 Chloride 105 Carbon Dioxide 31 Anion Gap 8 BUN 26 H Creatinine 1.1 H Creat Clearance w eGFR 48.82 Random Glucose 134 H Calcium 8.4 L Problem List - Problems (1) Acute on chronic respiratory failure with hypercapnia Code(s): J96.22 - ACUTE AND CHRONIC RESPIRATORY FAILURE WITH HYPERCAPNIA (2) COPD exacerbation Code(s): J44.1 - CHRONIC OBSTRUCTIVE PULMONARY DISEASE W (ACUTE) EXACERBATION (3) H/O acute myocardial infarction Code(s): I25.2 - OLD MYOCARDIAL INFARCTION (4) HTN (hypertension) Code(s): I10 - ESSENTIAL (PRIMARY) HYPERTENSION (5) Bladder cancer Code(s): C67.9 - MALIGNANT NEOPLASM OF BLADDER, UNSPECIFIED (6) ASHD (arteriosclerotic heart disease) Code(s): I25.10 - ATHSCL HEART DISEASE OF [place] CORONARY ARTERY W/O ANG PCTRS (7) Weight loss Code(s): R63.4 - ABNORMAL WEIGHT LOSS Assessment/Plan IMP ACUTE ON CHRONIC HYPOXEMIC/YPERCAPNEIC RESPIRATORY FAILURE COPD EXACERBATION END STAGE COPD O2 DEPENDENT ASHD S/P STENTS BLADDER CA ON BCG SECONDARY ERYTHROCYTOSIS TOBACCO ABUSE TOPHER PLAN CONTINUE IV STEROIDS SAME DOSE INHALED BRONCHODILATORS O2 TO MAINTAIN SAT 88% TO 92% ABX MONITOR H+H DR EDWARDS
[2018-04-22] MEDS: ATORVASTATIN CA 80 MG TABLET (FP) PO SCH (21:30)
[2018-04-23] MEDS: methylPREDNISolone NA SUCC 125 MG/2 ML VIAL IVPUSH SCH ×3 (03:07→17:23)
[2018-04-23] MEDS: ALBUTEROL SO4 2.5/IPRATROPIUM 0.5 INH SOL 3 ML VIAL.NEB. NEB SCH ×4 (07:20→20:39)
[2018-04-23 07:26] LABS: ANION GAP 5 (8-16); BLOOD UREA NITROGEN 33 mg/dL (7-18); CALCIUM 8.9 mg/dL (8.5-10.1); CHLORIDE 102 mmol/L (98-107); CO2 35 mmol/L (21-32); CREATININE 0.9 mg/dL (0.55-1.02); GLUCOSE,RANDOM 133 mg/dL (74-106); POTASSIUM 4.8 mmol/L (3.5-5.1); SODIUM 142 mmol/L (136-145)
[2018-04-23 07:46] LABS: HEMATOCRIT 49.1 % (32.4-45.2); HEMOGLOBIN 16.3 GM/dL (10.7-15.3); MCH 31.8 pg (25.7-33.7); MCHC 33.2 g/dl (32.0-36.0); MEAN PLT VOLUME 8.6 fl (7.5-11.1); PLATELET COUNT 156 K/MM3 (134-434); RBC 5.11 M/mm3 (3.60-5.2); RDW 15.5 % (11.6-15.6); WHITE BLOOD COUNT 10.8 K/mm3 (4.0-10.0)
[2018-04-23] MEDS ORDERED: PT OWN MED DRAWER 7, Y5N ONE ×2 (09:07→21:59)
[2018-04-23] MEDS: ALPRAZolam 0.25 MG TABLET PO SCH ×2 (09:16→22:05)
[2018-04-23] MEDS: amLODIPine BESYLATE 10 MG TABLET (FP) PO SCH (09:16)
[2018-04-23] MEDS: BUDESONIDE/FORMETEROL FUMARATE 80/4.5 mcg INHALER IH SCH ×2 (09:16→22:05)
[2018-04-23] MEDS: CLOPIDOGREL BISULFATE 75 MG TABLET (FP) PO SCH (09:16)
[2018-04-23] MEDS: NICOTINE 21 MG/24 HOURS TOPICAL PATCH TD SCH (09:16)
[2018-04-23] MEDS: HEPARIN NA (PORCINE) 5,000 UNITS/ML 1ML VIAL SQ SCH ×2 (09:17→22:05)
--- NOTE | 2018-04-23 10:25 | PN ---
Progress Note (short form) - Note Progress Note: PULMONARY VSS/AFEBRILE FRUSTRATED OVER LACK OF IMPROVEMENT PALE/ANICTERIC DIMINISHED DIFFUSE BREATH SOUNDS S1S2 BS+ NO EDEMA LABS/MEDS/NOTES/IMAGES REVIEWED IMP ACUTE ON CHRONIC HYPOXEMIC/YPERCAPNEIC RESPIRATORY FAILURE COPD EXACERBATION END STAGE COPD O2 DEPENDENT ASHD S/P STENTS BLADDER CA ON BCG SECONDARY ERYTHROCYTOSIS TOBACCO ABUSE TOPHER PLAN CONTINUE IV STEROIDS SAME DOSE INHALED BRONCHODILATORS O2 TO MAINTAIN SAT 88% TO 92% ABX MONITOR H+H R ALDO SINGH
--- NOTE | 2018-04-23 11:07 | PN ---
Progress Note (short form) - Note Progress Note: s: no cp palps dizzy; sob persists o: Vital Signs Period Temp Pulse Resp BP Sys/Lock Pulse Ox Last 24 Hr 97.7 F-98.6 F 69-80 20-22 137-153/62-73 88 Constitutional: Yes: Well Nourished, No Distress Eyes: No: Sclera Icterus Respiratory: Yes: scattered wheeze, nl eff Gastrointestinal: Yes: Normal Bowel Sounds. No: Distention, Hepatomegaly, Palpable Mass, Tenderness Cardiovascular: Yes: Regular Rate and Rhythm PMI: Non-Displaced Heart Sounds: Yes: S1, S2. No: Gallop Murmur: No: Systolic Murmur, Diastolic Murmur Extremities: No: Cold, Cyanosis Edema: No Integumentary: No: Jaundice Neurological: Yes: Alert, Oriented (x3) Psychiatric: No: Agitated Current Medications Generic Name Dose Route Start Last Admin Trade Name Freq PRN Reason Stop Dose Admin Albuterol Sulfate 1 amp 04/19/18 18:29 04/22/18 04:34 Ventolin 0.083% Nebulizer Soln - NEB 1 amp Q4H PRN Administration SHORT OF BREATH/WHEEZING Albuterol/Ipratropium 1 amp 04/19/18 20:00 04/23/18 07:20 Duoneb - NEB 1 amp RQID [facility] Administration Alprazolam 0.25 mg 04/22/18 11:15 04/23/18 09:16 Xanax - PO 0.25 mg BID [facility] Administration Amlodipine Besylate 10 mg 04/20/18 10:00 04/23/18 09:16 Norvasc - PO 10 mg DAILY [facility] Administration Atorvastatin Calcium 80 mg 04/19/18 22:00 04/22/18 21:30 Lipitor - PO 80 mg HS [facility] Administration Budesonide/Formoterol Fumarate 2 puff 04/19/18 22:00 04/23/18 09:16 Symbicort 80/4.5mcg - IH 2 puff BID [facility] Administration Clopidogrel Bisulfate 75 mg 04/20/18 10:00 04/23/18 09:16 Plavix - PO 75 mg DAILY [facility] Administration Heparin Sodium (Porcine) 5,000 unit 04/21/18 22:00 04/23/18 09:17 Heparin - SQ 5,000 unit BID [facility] Administration Levofloxacin 250 mg in 50 mls @ 100 mls/hr 04/20/18 10:00 04/23/18 09:16 Levaquin 250 Mg Premixed Ivpb - IVPB 100 mls/hr DAILY [facility] Administration Protocol Losartan Potassium 100 mg 04/20/18 10:00 04/20/18 11:38 Cozaar - PO 100 mg DAILY [facility] Administration Methylprednisolone Sodium Succinate 60 mg 04/21/18 18:00 04/23/18 09:16 Solu-Medrol - IVPUSH 60 mg Q8H-IV [facility] Administration Nicotine 21 mg 04/20/18 10:00 04/23/18 09:16 Nicoderm Patch - TD 21 mg DAILY [facility] Administration Pt's Own Med ( 1 each 04/19/18 22:00 Tudorza (Aclidinum IH [place]) BID [facility] CBC, BMP 04/23/18 05:30 04/23/18 05:30 cxr: no chf ecg: sr, nl intervals, no ischemic changes echo 03/2016: tds, mild dec lvef, nl rv, no sig valve path tele: sr, occ pvcs Assessment/Plan sob, cough, copd: -getting abx, iv steroids for copd, pulm following chronic CAD, remote pci, w/o angina: -mult prior stents (prox and mid LAD, entire RCA and RPDA) all patent on cath 2013 -no angina (chronic sob with chest pressure is copd sx--present prior to cath and unchanged since) -no signs acs -cont plavix, statin, arb chronic diast chf -borderline depressed LVEF (45% on v-gram, 50% echo 2015) with moderately incr' d LVEDP at cath (24) -never clinical chf, no sob response to trial of lasix in past -current exam--clinically euvolemic -no diuretics needed HTN: -known bp lability from anxiety at times -reasonably controlled here HPL: -cont home statin +cigs: -counselled on cessation many times, not interested in quitting descending thoracic aortic aneurysm: -mild, stable size on 12/2017 ct chest -cont bp control
--- NOTE | 2018-04-23 14:41 | PN ---
Progress Note, Physician Chief Complaint: AWAKE LAERT FAMILY BEDSIDE FEELING SLIGHTLY BETTER - Current Medication List Current Medications: Active Medications Albuterol Sulfate (Ventolin 0.083% Nebulizer Soln -) 1 amp NEB Q4H PRN PRN Reason: SHORT OF BREATH/WHEEZING Last Admin: 04/22/18 04:34 Dose: 1 amp Albuterol/Ipratropium (Duoneb -) 1 amp NEB RQID [facility] Last Admin: 04/23/18 11:25 Dose: 1 amp Alprazolam (Xanax -) 0.25 mg PO BID [facility] Last Admin: 04/23/18 09:16 Dose: 0.25 mg Amlodipine Besylate (Norvasc -) 10 mg PO DAILY [facility] Last Admin: 04/23/18 09:16 Dose: 10 mg Atorvastatin Calcium (Lipitor -) 80 mg PO HS [facility] Last Admin: 04/22/18 21:30 Dose: 80 mg Budesonide/Formoterol Fumarate (Symbicort 80/4.5mcg -) 2 puff IH BID [facility] Last Admin: 04/23/18 09:16 Dose: 2 puff Clopidogrel Bisulfate (Plavix -) 75 mg PO DAILY [facility] Last Admin: 04/23/18 09:16 Dose: 75 mg Heparin Sodium (Porcine) (Heparin -) 5,000 unit SQ BID [facility] Last Admin: 04/23/18 09:17 Dose: 5,000 unit Levofloxacin (Levaquin 250 Mg Premixed Ivpb -) 250 mg in 50 mls @ 100 mls/hr IVPB DAILY [facility]; Protocol Last Admin: 04/23/18 09:16 Dose: 100 mls/hr Losartan Potassium (Cozaar -) 100 mg PO DAILY [facility] Last Admin: 04/20/18 11:38 Dose: 100 mg Methylprednisolone Sodium Succinate (Solu-Medrol -) 60 mg IVPUSH Q8H-IV [facility] Last Admin: 04/23/18 09:16 Dose: 60 mg Nicotine (Nicoderm Patch -) 21 mg TD DAILY [facility] Last Admin: 04/23/18 09:16 Dose: 21 mg Pt's Own Med ( Tudorza (Aclidinum [place]) 1 each IH BID [facility] - Objective Vital Signs: Vital Signs Temperature 98.2 F 04/23/18 10:00 Pulse Rate 74 04/23/18 10:00 Respiratory Rate 22 04/23/18 10:00 Blood Pressure 135/74 04/23/18 10:00 O2 Sat by Pulse Oximetry (%) 87 L 04/23/18 09:00 Constitutional: Yes: Mild Distress Eyes: Yes: WNL HENT: Yes: WNL Neck: Yes: WNL Cardiovascular: Yes: Tachycardia, Pulse Irregular Respiratory: Yes: On Nasal O2, Rhonchi, SOB, SOB on Exertion Gastrointestinal: Yes: WNL Genitourinary: Yes: WNL Musculoskeletal: Yes: Muscle Weakness Extremities: Yes: WNL Edema: No Peripheral Pulses WNL: Yes Integumentary: Yes: WNL Wound/Incision: Yes: Clean/Dry Neurological: Yes: WNL ...Motor Strength: WNL Psychiatric: Yes: WNL Labs: CBC, BMP 04/23/18 05:30 04/23/18 05:30 INR, PTT INR 0.95 (0.82-1.09) 04/20/18 10:00 Problem List - Problems (1) ASHD (arteriosclerotic heart disease) Code(s): I25.10 - ATHSCL HEART DISEASE OF [place] CORONARY ARTERY W/O ANG PCTRS (2) Acute on chronic respiratory failure with hypercapnia Code(s): J96.22 - ACUTE AND CHRONIC RESPIRATORY FAILURE WITH HYPERCAPNIA (3) Bladder cancer Code(s): C67.9 - MALIGNANT NEOPLASM OF BLADDER, UNSPECIFIED (4) CAD (coronary artery disease) Code(s): I25.10 - ATHSCL HEART DISEASE OF [place] CORONARY ARTERY W/O ANG PCTRS (5) CKD (chronic kidney disease) Code(s): N18.9 - CHRONIC KIDNEY DISEASE, UNSPECIFIED (6) COPD exacerbation Code(s): J44.1 - CHRONIC OBSTRUCTIVE PULMONARY DISEASE W (ACUTE) EXACERBATION (7) DVT prophylaxis Code(s): [id number] - (8) Dyspnea Code(s): R06.00 - DYSPNEA, UNSPECIFIED (9) Tobacco abuse Code(s): Z72.0 - TOBACCO USE (10) H/O acute myocardial infarction Code(s): I25.2 - OLD MYOCARDIAL INFARCTION (11) Anxiety Code(s): F41.9 - ANXIETY DISORDER, UNSPECIFIED Assessment/Plan TAPER OFF STEROIDS STOP ABX 02 SUPPORT WILL NEED SUPERVISOR VARNISH FOR ASSISTANCE WITH HOME 02 EVALUATION FOR TANKS AND CONCENTRATOR OOB TO CHAIR [facility] SMOKING CESSATION
--- NOTE | 2018-04-23 16:40 | PN ---
Progress Note, Physician History of Present Illness: Pt seen and examined at bedside. She is awake and alert. She feels that her breathing is improved. - Current Medication List Current Medications: Active Medications Albuterol Sulfate (Ventolin 0.083% Nebulizer Soln -) 1 amp NEB Q4H PRN PRN Reason: SHORT OF BREATH/WHEEZING Last Admin: 04/22/18 04:34 Dose: 1 amp Albuterol/Ipratropium (Duoneb -) 1 amp NEB RQID [facility] Last Admin: 04/23/18 16:30 Dose: 1 amp Alprazolam (Xanax -) 0.25 mg PO BID [facility] Last Admin: 04/23/18 09:16 Dose: 0.25 mg Amlodipine Besylate (Norvasc -) 10 mg PO DAILY [facility] Last Admin: 04/23/18 09:16 Dose: 10 mg Atorvastatin Calcium (Lipitor -) 80 mg PO HS [facility] Last Admin: 04/22/18 21:30 Dose: 80 mg Budesonide/Formoterol Fumarate (Symbicort 80/4.5mcg -) 2 puff IH BID [facility] Last Admin: 04/23/18 09:16 Dose: 2 puff Clopidogrel Bisulfate (Plavix -) 75 mg PO DAILY [facility] Last Admin: 04/23/18 09:16 Dose: 75 mg Heparin Sodium (Porcine) (Heparin -) 5,000 unit SQ BID [facility] Last Admin: 04/23/18 09:17 Dose: 5,000 unit Levofloxacin (Levaquin 250 Mg Premixed Ivpb -) 250 mg in 50 mls @ 100 mls/hr IVPB DAILY [facility]; Protocol Last Admin: 04/23/18 09:16 Dose: 100 mls/hr Losartan Potassium (Cozaar -) 100 mg PO DAILY [facility] Last Admin: 04/20/18 11:38 Dose: 100 mg Methylprednisolone Sodium Succinate (Solu-Medrol -) 60 mg IVPUSH Q8H-IV [facility] Last Admin: 04/23/18 09:16 Dose: 60 mg Nicotine (Nicoderm Patch -) 21 mg TD DAILY [facility] Last Admin: 04/23/18 09:16 Dose: 21 mg Pt's Own Med ( Tudorza (Aclidinum [employer]) 1 each IH BID [facility] - Objective Vital Signs: Vital Signs Temperature 97.9 F 04/23/18 14:10 Pulse Rate 81 04/23/18 14:10 Respiratory Rate 24 04/23/18 14:10 Blood Pressure 144/80 04/23/18 14:10 O2 Sat by Pulse Oximetry (%) 87 L 04/23/18 09:00 Constitutional: Yes: Calm Eyes: Yes: Conjunctiva Clear HENT: Yes: Atraumatic Cardiovascular: Yes: S1, S2 Respiratory: Yes: On Nasal O2, Wheezes Gastrointestinal: Yes: Soft Genitourinary: Yes: WNL Extremities: Yes: WNL Edema: No Neurological: Yes: Oriented Psychiatric: Yes: Oriented Labs: CBC, BMP 04/23/18 05:30 04/23/18 05:30 INR, PTT INR 0.95 (0.82-1.09) 04/20/18 10:00 Problem List - Problems (1) CKD (chronic kidney disease) Code(s): N18.9 - CHRONIC KIDNEY DISEASE, UNSPECIFIED (2) ASHD (arteriosclerotic heart disease) Code(s): I25.10 - ATHSCL HEART DISEASE OF [place] CORONARY ARTERY W/O ANG PCTRS (3) Acute on chronic respiratory failure with hypercapnia Code(s): J96.22 - ACUTE AND CHRONIC RESPIRATORY FAILURE WITH HYPERCAPNIA (4) Bladder cancer Code(s): C67.9 - MALIGNANT NEOPLASM OF BLADDER, UNSPECIFIED (5) CAD (coronary artery disease) Code(s): I25.10 - ATHSCL HEART DISEASE OF [place] CORONARY ARTERY W/O ANG PCTRS (6) COPD exacerbation Code(s): J44.1 - CHRONIC OBSTRUCTIVE PULMONARY DISEASE W (ACUTE) EXACERBATION (7) COPD (chronic obstructive pulmonary disease) Code(s): J44.9 - CHRONIC OBSTRUCTIVE PULMONARY DISEASE, UNSPECIFIED Assessment/Plan Current Medications Generic Name Dose Route Start Last Admin Trade Name Freq PRN Reason Stop Dose Admin Albuterol Sulfate 1 amp 04/19/18 18:29 04/22/18 04:34 Ventolin 0.083% Nebulizer Soln - NEB 1 amp Q4H PRN Administration SHORT OF BREATH/WHEEZING Albuterol/Ipratropium 1 amp 04/19/18 20:00 04/23/18 16:30 Duoneb - NEB 1 amp RQID [facility] Administration Alprazolam 0.25 mg 04/22/18 11:15 04/23/18 09:16 Xanax - PO 0.25 mg BID [facility] Administration Amlodipine Besylate 10 mg 04/20/18 10:00 04/23/18 09:16 Norvasc - PO 10 mg DAILY [facility] Administration Atorvastatin Calcium 80 mg 04/19/18 22:00 04/22/18 21:30 Lipitor - PO 80 mg HS [facility] Administration Budesonide/Formoterol Fumarate 2 puff 04/19/18 22:00 04/23/18 09:16 Symbicort 80/4.5mcg - IH 2 puff BID [facility] Administration Clopidogrel Bisulfate 75 mg 04/20/18 10:00 04/23/18 09:16 Plavix - PO 75 mg DAILY [facility] Administration Heparin Sodium (Porcine) 5,000 unit 04/21/18 22:00 04/23/18 09:17 Heparin - SQ 5,000 unit BID [facility] Administration Levofloxacin 250 mg in 50 mls @ 100 mls/hr 04/20/18 10:00 04/23/18 09:16 Levaquin 250 Mg Premixed Ivpb - IVPB 100 mls/hr DAILY [facility] Administration Protocol Losartan Potassium 100 mg 04/20/18 10:00 04/20/18 11:38 Cozaar - PO 100 mg DAILY [facility] Administration Methylprednisolone Sodium Succinate 60 mg 04/21/18 18:00 04/23/18 09:16 Solu-Medrol - IVPUSH 60 mg Q8H-IV [facility] Administration Nicotine 21 mg 04/20/18 10:00 04/23/18 09:16 Nicoderm Patch - TD 21 mg DAILY [facility] Administration Pt's Own Med ( 1 each 04/19/18 22:00 Tudorza (Aclidinum IH [employer]) BID [facility] Impression 1. CKD stage 3 with worsening creatinine 2. resp failure requiring oxygen 3. HTN 4. CAD 5. COPD 6. hyperlipidemia 7. bladder cancer 8. active smoker Plan - renal function is stable - labs reviewed - avoid nsaids - cont cozaar - steroid taper per pulmonary Dr Herring
[2018-04-23] MEDS: ATORVASTATIN CA 80 MG TABLET (FP) PO SCH (22:05)
[2018-04-24] MEDS: methylPREDNISolone NA SUCC 125 MG/2 ML VIAL IVPUSH SCH ×3 (01:36→17:44)
[2018-04-24] MEDS: ALBUTEROL SO4 2.5/IPRATROPIUM 0.5 INH SOL 3 ML VIAL.NEB. NEB SCH ×4 (08:00→20:25)
[2018-04-24 08:04] LABS: HEMATOCRIT 48.9 % (32.4-45.2); HEMOGLOBIN 16.2 GM/dL (10.7-15.3); MCH 31.7 pg (25.7-33.7); MCHC 33.2 g/dl (32.0-36.0); MEAN CELL VOLUME 95.3 fl (80-96); MEAN PLT VOLUME 8.6 fl (7.5-11.1); PLATELET COUNT 151 K/MM3 (134-434); RBC 5.13 M/mm3 (3.60-5.2); RDW 15.6 % (11.6-15.6); WHITE BLOOD COUNT 10.1 K/mm3 (4.0-10.0)
[2018-04-24] MEDS: amLODIPine BESYLATE 10 MG TABLET (FP) PO SCH (10:00)
[2018-04-24] MEDS: HEPARIN NA (PORCINE) 5,000 UNITS/ML 1ML VIAL SQ SCH ×2 (10:00→22:36)
[2018-04-24] MEDS: ALPRAZolam 0.25 MG TABLET PO SCH ×2 (10:00→21:10)
[2018-04-24] MEDS: NICOTINE 21 MG/24 HOURS TOPICAL PATCH TD SCH (10:01)
[2018-04-24] MEDS: BUDESONIDE/FORMETEROL FUMARATE 80/4.5 mcg INHALER IH SCH ×2 (10:01→21:38)
[2018-04-24] MEDS: LOSARTAN POTASSIUM 50 MG TABLET (FP) PO SCH (10:01)
[2018-04-24] MEDS: CLOPIDOGREL BISULFATE 75 MG TABLET (FP) PO SCH (10:01)
--- NOTE | 2018-04-24 11:31 | PN ---
Progress Note (short form) - Note Progress Note: s: no cp palps dizzy; sob persists but a little better o: Vital Signs Period Temp Pulse Resp BP Sys/Lock Pulse Ox Last 24 Hr 97.7 F-98.1 F 71-81 18-24 139-147/72-83 86-88 Constitutional: Yes: Well Nourished, No Distress Eyes: No: Sclera Icterus Respiratory: Yes: scattered wheeze, nl eff Gastrointestinal: Yes: Normal Bowel Sounds. No: Distention, Hepatomegaly, Palpable Mass, Tenderness Cardiovascular: Yes: Regular Rate and Rhythm PMI: Non-Displaced Heart Sounds: Yes: S1, S2. No: Gallop Murmur: No: Systolic Murmur, Diastolic Murmur Extremities: No: Cold, Cyanosis Edema: No Integumentary: No: Jaundice Neurological: Yes: Alert, Oriented (x3) Psychiatric: No: Agitated Current Medications Generic Name Dose Route Start Last Admin Trade Name Freq PRN Reason Stop Dose Admin Albuterol Sulfate 1 amp 04/19/18 18:29 04/22/18 04:34 Ventolin 0.083% Nebulizer Soln - NEB 1 amp Q4H PRN Administration SHORT OF BREATH/WHEEZING Albuterol/Ipratropium 1 amp 04/19/18 20:00 04/24/18 08:00 Duoneb - NEB 1 amp RQID ALFA Administration Alprazolam 0.25 mg 04/22/18 11:15 04/24/18 10:00 Xanax - PO 0.25 mg BID ALFA Administration Amlodipine Besylate 10 mg 04/20/18 10:00 04/24/18 10:00 Norvasc - PO 10 mg DAILY [facility]FA Administration Atorvastatin Calcium 80 mg 04/19/18 22:00 04/23/18 22:05 Lipitor - PO 80 mg HS ALFA Administration Budesonide/Formoterol Fumarate 2 puff 04/19/18 22:00 04/24/18 10:01 Symbicort 80/4.5mcg - IH 2 puff BID [facility]FA Administration Clopidogrel Bisulfate 75 mg 04/20/18 10:00 04/24/18 10:01 Plavix - PO 75 mg DAILY [facility] Administration Heparin Sodium (Porcine) 5,000 unit 04/21/18 22:00 04/24/18 10:00 Heparin - SQ 5,000 unit BID [facility] Administration Levofloxacin 250 mg in 50 mls @ 100 mls/hr 04/20/18 10:00 04/24/18 10:00 Levaquin 250 Mg Premixed Ivpb - IVPB 100 mls/hr DAILY [facility] Administration Protocol Losartan Potassium 100 mg 04/20/18 10:00 04/24/18 10:01 Cozaar - PO 100 mg DAILY [facility] Administration Methylprednisolone Sodium Succinate 60 mg 04/21/18 18:00 04/24/18 10:01 Solu-Medrol - IVPUSH 60 mg Q8H-IV [facility] Administration Nicotine 21 mg 04/20/18 10:00 04/24/18 10:01 Nicoderm Patch - TD 21 mg DAILY [facility] Administration Pt's Own Med ( 1 each 04/19/18 22:00 Tudorza (Aclidinum [facility] [place]) BID [facility]FA CBC, BMP 04/24/18 06:00 04/23/18 05:30 cxr: no chf ecg: sr, nl intervals, no ischemic changes echo 03/2016: tds, mild dec lvef, nl rv, no sig valve path tele: sr, occ pvcs Assessment/Plan sob, cough, copd: -getting abx, steroids for copd, pulm following chronic CAD, remote pci, w/o angina: -mult prior stents (prox and mid LAD, entire RCA and RPDA) all patent on cath 2013 -no angina (chronic sob with chest pressure is copd sx--present prior to cath and unchanged since) -no signs acs -cont plavix, statin, arb chronic diast chf -borderline depressed LVEF (45% on v-gram, 50% echo 2015) with moderately incr' d LVEDP at cath (24) -never clinical chf, no sob response to trial of lasix in past -current exam--clinically euvolemic -no diuretics needed HTN: -known bp lability from anxiety at times -reasonably controlled here HPL: -cont home statin +cigs: -counselled on cessation many times, not interested in quitting descending thoracic aortic aneurysm: -mild, stable size on 12/2017 ct chest -cont bp control
--- NOTE | 2018-04-24 11:52 | PN ---
Progress Note, Physician Chief Complaint: AWAKE ALERT FEELING BETTER ON 02 SUPPORT - Current Medication List Current Medications: Active Medications Albuterol Sulfate (Ventolin 0.083% Nebulizer Soln -) 1 amp NEB Q4H PRN PRN Reason: SHORT OF BREATH/WHEEZING Last Admin: 04/22/18 04:34 Dose: 1 amp Albuterol/Ipratropium (Duoneb -) 1 amp NEB RQID [facility] Last Admin: 04/24/18 11:40 Dose: 1 amp Alprazolam (Xanax -) 0.25 mg PO BID [facility] Last Admin: 04/24/18 10:00 Dose: 0.25 mg Amlodipine Besylate (Norvasc -) 10 mg PO DAILY [facility] Last Admin: 04/24/18 10:00 Dose: 10 mg Atorvastatin Calcium (Lipitor -) 80 mg PO HS [facility] Last Admin: 04/23/18 22:05 Dose: 80 mg Budesonide/Formoterol Fumarate (Symbicort 80/4.5mcg -) 2 puff IH BID [facility] Last Admin: 04/24/18 10:01 Dose: 2 puff Clopidogrel Bisulfate (Plavix -) 75 mg PO DAILY [facility] Last Admin: 04/24/18 10:01 Dose: 75 mg Heparin Sodium (Porcine) (Heparin -) 5,000 unit SQ BID [facility] Last Admin: 04/24/18 10:00 Dose: 5,000 unit Levofloxacin (Levaquin 250 Mg Premixed Ivpb -) 250 mg in 50 mls @ 100 mls/hr IVPB DAILY [facility]; Protocol Last Admin: 04/24/18 10:00 Dose: 100 mls/hr Losartan Potassium (Cozaar -) 100 mg PO DAILY [facility] Last Admin: 04/24/18 10:01 Dose: 100 mg Methylprednisolone Sodium Succinate (Solu-Medrol -) 60 mg IVPUSH Q8H-IV [facility] Last Admin: 04/24/18 10:01 Dose: 60 mg Nicotine (Nicoderm Patch -) 21 mg TD DAILY [facility] Last Admin: 04/24/18 10:01 Dose: 21 mg Pt's Own Med ( Tudorza (Aclidinum [place]) 1 each IH BID [facility] - Objective Vital Signs: Vital Signs Temperature 97.7 F 04/24/18 06:00 Pulse Rate 71 04/24/18 06:00 Respiratory Rate 20 04/24/18 09:00 Blood Pressure 146/74 04/24/18 06:00 O2 Sat by Pulse Oximetry (%) 88 L 04/24/18 09:00 Constitutional: Yes: Mild Distress Eyes: Yes: WNL HENT: Yes: WNL Neck: Yes: WNL Cardiovascular: Yes: Pulse Irregular Respiratory: Yes: Diminished, On Nasal O2, Rhonchi Gastrointestinal: Yes: WNL Genitourinary: Yes: WNL Musculoskeletal: Yes: Muscle Weakness Extremities: Yes: WNL Edema: No Peripheral Pulses WNL: Yes Integumentary: Yes: Venous Stasis Changes Wound/Incision: Yes: Clean/Dry Neurological: Yes: WNL ...Motor Strength: WNL Psychiatric: Yes: WNL Labs: CBC, BMP 04/24/18 06:00 04/23/18 05:30 INR, PTT INR 0.95 (0.82-1.09) 04/20/18 10:00 Problem List - Problems (1) ASHD (arteriosclerotic heart disease) Code(s): I25.10 - ATHSCL HEART DISEASE OF [place] CORONARY ARTERY W/O ANG PCTRS (2) Acute on chronic respiratory failure with hypercapnia Code(s): J96.22 - ACUTE AND CHRONIC RESPIRATORY FAILURE WITH HYPERCAPNIA (3) Bladder cancer Code(s): C67.9 - MALIGNANT NEOPLASM OF BLADDER, UNSPECIFIED (4) CAD (coronary artery disease) Code(s): I25.10 - ATHSCL HEART DISEASE OF [place] CORONARY ARTERY W/O ANG PCTRS (5) CKD (chronic kidney disease) Code(s): N18.9 - CHRONIC KIDNEY DISEASE, UNSPECIFIED (6) COPD exacerbation Code(s): J44.1 - CHRONIC OBSTRUCTIVE PULMONARY DISEASE W (ACUTE) EXACERBATION (7) DVT prophylaxis Code(s): [id number] - (8) Dyspnea Code(s): R06.00 - DYSPNEA, UNSPECIFIED (9) Tobacco abuse Code(s): Z72.0 - TOBACCO USE (10) H/O acute myocardial infarction Code(s): I25.2 - OLD MYOCARDIAL INFARCTION (11) Anxiety Code(s): F41.9 - ANXIETY DISORDER, UNSPECIFIED Assessment/Plan TAPER OFF STEROIDS STOP ABX 02 SUPPORT WILL NEED TRANSFORMATION ARCHITECT FOR ASSISTANCE WITH HOME 02 EVALUATION FOR TANKS AND CONCENTRATOR OOB TO CHAIR NEBS SMOKING CESSATION
--- NOTE | 2018-04-24 12:00 | PN ---
Progress Note, Physician History of Present Illness: Pt seen and examined at bedside. She does not feel that her breathing is much different. - Current Medication List Current Medications: Active Medications Albuterol Sulfate (Ventolin 0.083% Nebulizer Soln -) 1 amp NEB Q4H PRN PRN Reason: SHORT OF BREATH/WHEEZING Last Admin: 04/22/18 04:34 Dose: 1 amp Albuterol/Ipratropium (Duoneb -) 1 amp NEB RQID [facility] Last Admin: 04/24/18 11:40 Dose: 1 amp Alprazolam (Xanax -) 0.25 mg PO BID [facility] Last Admin: 04/24/18 10:00 Dose: 0.25 mg Amlodipine Besylate (Norvasc -) 10 mg PO DAILY [facility] Last Admin: 04/24/18 10:00 Dose: 10 mg Atorvastatin Calcium (Lipitor -) 80 mg PO HS [facility] Last Admin: 04/23/18 22:05 Dose: 80 mg Budesonide/Formoterol Fumarate (Symbicort 80/4.5mcg -) 2 puff IH BID [facility] Last Admin: 04/24/18 10:01 Dose: 2 puff Clopidogrel Bisulfate (Plavix -) 75 mg PO DAILY [facility] Last Admin: 04/24/18 10:01 Dose: 75 mg Heparin Sodium (Porcine) (Heparin -) 5,000 unit SQ BID [facility] Last Admin: 04/24/18 10:00 Dose: 5,000 unit Levofloxacin (Levaquin 250 Mg Premixed Ivpb -) 250 mg in 50 mls @ 100 mls/hr IVPB DAILY [facility]; Protocol Last Admin: 04/24/18 10:00 Dose: 100 mls/hr Losartan Potassium (Cozaar -) 100 mg PO DAILY [facility] Last Admin: 04/24/18 10:01 Dose: 100 mg Methylprednisolone Sodium Succinate (Solu-Medrol -) 60 mg IVPUSH Q8H-IV [facility] Last Admin: 04/24/18 10:01 Dose: 60 mg Nicotine (Nicoderm Patch -) 21 mg TD DAILY [facility] Last Admin: 04/24/18 10:01 Dose: 21 mg Pt's Own Med ( Tudorza (Aclidinum [place]) 1 each IH BID [facility] - Objective Vital Signs: Vital Signs Temperature 97.7 F 04/24/18 06:00 Pulse Rate 71 04/24/18 06:00 Respiratory Rate 20 04/24/18 09:00 Blood Pressure 146/74 04/24/18 06:00 O2 Sat by Pulse Oximetry (%) 88 L 04/24/18 09:00 Constitutional: Yes: Calm Eyes: Yes: Conjunctiva Clear HENT: Yes: Atraumatic Neck: Yes: Supple Cardiovascular: Yes: S1, S2 Respiratory: Yes: On Nasal O2, Wheezes Gastrointestinal: Yes: Soft Genitourinary: Yes: WNL Musculoskeletal: Yes: WNL Edema: No Neurological: Yes: Oriented Psychiatric: Yes: Oriented Labs: CBC, BMP 04/24/18 06:00 04/23/18 05:30 INR, PTT INR 0.95 (0.82-1.09) 04/20/18 10:00 Problem List - Problems (1) CKD (chronic kidney disease) Code(s): N18.9 - CHRONIC KIDNEY DISEASE, UNSPECIFIED (2) ASHD (arteriosclerotic heart disease) Code(s): I25.10 - ATHSCL HEART DISEASE OF [place] CORONARY ARTERY W/O ANG PCTRS (3) Acute on chronic respiratory failure with hypercapnia Code(s): J96.22 - ACUTE AND CHRONIC RESPIRATORY FAILURE WITH HYPERCAPNIA (4) Bladder cancer Code(s): C67.9 - MALIGNANT NEOPLASM OF BLADDER, UNSPECIFIED (5) CAD (coronary artery disease) Code(s): I25.10 - ATHSCL HEART DISEASE OF [place] CORONARY ARTERY W/O ANG PCTRS (6) COPD exacerbation Code(s): J44.1 - CHRONIC OBSTRUCTIVE PULMONARY DISEASE W (ACUTE) EXACERBATION (7) COPD (chronic obstructive pulmonary disease) Code(s): J44.9 - CHRONIC OBSTRUCTIVE PULMONARY DISEASE, UNSPECIFIED Assessment/Plan Current Medications Generic Name Dose Route Start Last Admin Trade Name Freq PRN Reason Stop Dose Admin Albuterol Sulfate 1 amp 04/19/18 18:29 04/22/18 04:34 Ventolin 0.083% Nebulizer Soln - NEB 1 amp Q4H PRN Administration SHORT OF BREATH/WHEEZING Albuterol/Ipratropium 1 amp 04/19/18 20:00 04/24/18 11:40 Duoneb - NEB 1 amp RQID [facility]FA Administration Alprazolam 0.25 mg 04/22/18 11:15 04/24/18 10:00 Xanax - PO 0.25 mg BID [facility] Administration Amlodipine Besylate 10 mg 04/20/18 10:00 04/24/18 10:00 Norvasc - PO 10 mg DAILY [facility] Administration Atorvastatin Calcium 80 mg 04/19/18 22:00 04/23/18 22:05 Lipitor - PO 80 mg HS [facility] Administration Budesonide/Formoterol Fumarate 2 puff 04/19/18 22:00 04/24/18 10:01 Symbicort 80/4.5mcg - IH 2 puff BID [facility] Administration Clopidogrel Bisulfate 75 mg 04/20/18 10:00 04/24/18 10:01 Plavix - PO 75 mg DAILY [facility] Administration Heparin Sodium (Porcine) 5,000 unit 04/21/18 22:00 04/24/18 10:00 Heparin - SQ 5,000 unit BID [facility] Administration Levofloxacin 250 mg in 50 mls @ 100 mls/hr 04/20/18 10:00 04/24/18 10:00 Levaquin 250 Mg Premixed Ivpb - IVPB 100 mls/hr DAILY [facility] Administration Protocol Losartan Potassium 100 mg 04/20/18 10:00 04/24/18 10:01 Cozaar - PO 100 mg DAILY [facility] Administration Methylprednisolone Sodium Succinate 60 mg 04/21/18 18:00 04/24/18 10:01 Solu-Medrol - IVPUSH 60 mg Q8H-IV [facility] Administration Nicotine 21 mg 04/20/18 10:00 04/24/18 10:01 Nicoderm Patch - TD 21 mg DAILY [facility] Administration Pt's Own Med ( 1 each 04/19/18 22:00 Tudorza (Aclidinum [facility] [place]) BID [facility] Impression 1. CKD 2. resp failure requiring oxygen 3. HTN 4. CAD 5. COPD 6. hyperlipidemia 7. bladder cancer 8. active smoker Plan - check bmp - renal function had stabilized - steroids can contribute to elevated bun - smoking cessation - avoid nsaids - cont cozaar - steroid taper per pulmonary Dr Herring
--- NOTE | 2018-04-24 12:38 | PN ---
Progress Note (short form) - Note Progress Note: PULMONARY VSS/AFEBRILE SUBJECTIVE IMPROVEMENT PALE/ANICTERIC DIMINISHED DIFFUSE BREATH SOUNDS S1S2 BS+ NO EDEMA LABS/MEDS/NOTES/IMAGES REVIEWED IMP ACUTE ON CHRONIC HYPOXEMIC/YPERCAPNEIC RESPIRATORY FAILURE COPD EXACERBATION END STAGE COPD O2 DEPENDENT ASHD S/P STENTS BLADDER CA ON BCG SECONDARY ERYTHROCYTOSIS TOBACCO ABUSE TOPHER PLAN CONTINUE IV STEROIDS SAME DOSE INHALED BRONCHODILATORS O2 TO MAINTAIN SAT 88% TO 92% ABX MONITOR H+H HOPEFULLY THURSDAY DISCHARGE PLANNING ENCOURAGE SMOKING CESSATION Supriya CARLSON MD
[2018-04-24] MEDS ORDERED: PT OWN MED DRAWER 7, Y5N ONE (20:47)
[2018-04-24] MEDS: ATORVASTATIN CA 80 MG TABLET (FP) PO SCH (21:10)
[2018-04-25] MEDS: methylPREDNISolone NA SUCC 125 MG/2 ML VIAL IVPUSH SCH ×3 (02:02→17:02)
[2018-04-25 08:12] LABS: HEMATOCRIT 49.6 % (32.4-45.2); HEMOGLOBIN 16.3 GM/dL (10.7-15.3); MCH 31.3 pg (25.7-33.7); MCHC 32.8 g/dl (32.0-36.0); MEAN CELL VOLUME 95.2 fl (80-96); MEAN PLT VOLUME 8.8 fl (7.5-11.1); PLATELET COUNT 148 K/MM3 (134-434); RBC 5.21 M/mm3 (3.60-5.2); RDW 15.4 % (11.6-15.6)
--- NOTE | 2018-04-25 08:27 | PN ---
Progress Note (short form) - Note Progress Note: PULMONARY VSS/AFEBRILE SUBJECTIVE IMPROVEMENT WANTS TO GO HOME PALE/ANICTERIC DIMINISHED DIFFUSE BREATH SOUNDS S1S2 BS+ NO EDEMA LABS/MEDS/NOTES/IMAGES REVIEWED IMP ACUTE ON CHRONIC HYPOXEMIC/YPERCAPNEIC RESPIRATORY FAILURE COPD EXACERBATION END STAGE COPD O2 DEPENDENT ASHD S/P STENTS BLADDER CA ON BCG SECONDARY ERYTHROCYTOSIS TOBACCO ABUSE TOPHER PLAN CONTINUE IV STEROIDS SAME DOSE INHALED BRONCHODILATORS O2 TO MAINTAIN SAT 88% TO 92% ABX MONITOR H+H HOPEFULLY THURSDAY DISCHARGE PLANNING ENCOURAGE SMOKING CESSATION Supriya CARLSON MD
[2018-04-25] MEDS: ALBUTEROL SO4 2.5/IPRATROPIUM 0.5 INH SOL 3 ML VIAL.NEB. NEB SCH ×4 (09:00→19:50)
[2018-04-25] MEDS: ALPRAZolam 0.25 MG TABLET PO SCH ×2 (09:35→21:31)
[2018-04-25] MEDS: amLODIPine BESYLATE 10 MG TABLET (FP) PO SCH (09:35)
[2018-04-25] MEDS: LOSARTAN POTASSIUM 50 MG TABLET (FP) PO SCH (09:35)
[2018-04-25] MEDS: BUDESONIDE/FORMETEROL FUMARATE 80/4.5 mcg INHALER IH SCH ×2 (09:36→21:31)
[2018-04-25] MEDS: NICOTINE 21 MG/24 HOURS TOPICAL PATCH TD SCH (09:36)
[2018-04-25] MEDS: CLOPIDOGREL BISULFATE 75 MG TABLET (FP) PO SCH (09:36)
[2018-04-25] MEDS: HEPARIN NA (PORCINE) 5,000 UNITS/ML 1ML VIAL SQ SCH ×2 (09:37→21:31)
--- NOTE | 2018-04-25 09:47 | PN ---
Progress Note (short form) - Note Progress Note: s: no cp palps dizzy; sob improved o: Vital Signs Period Temp Pulse Resp BP Sys/Lock Pulse Ox Last 24 Hr 97.5 F-99.5 F 69-79 20-20 138-150/60-87 85 Constitutional: Yes: Well Nourished, No Distress Eyes: No: Sclera Icterus Respiratory: Yes: scattered wheeze, nl eff Gastrointestinal: Yes: Normal Bowel Sounds. No: Distention, Hepatomegaly, Palpable Mass, Tenderness Cardiovascular: Yes: Regular Rate and Rhythm PMI: Non-Displaced Heart Sounds: Yes: S1, S2. No: Gallop Murmur: No: Systolic Murmur, Diastolic Murmur Extremities: No: Cold, Cyanosis Edema: No Integumentary: No: Jaundice Neurological: Yes: Alert, Oriented (x3) Psychiatric: No: Agitated Current Medications Generic Name Dose Route Start Last Admin Trade Name Freq PRN Reason Stop Dose Admin Albuterol Sulfate 1 amp 04/19/18 18:29 04/22/18 04:34 Ventolin 0.083% Nebulizer Soln - NEB 1 amp Q4H PRN Administration SHORT OF BREATH/WHEEZING Albuterol/Ipratropium 1 amp 04/19/18 20:00 04/25/18 09:00 Duoneb - NEB 1 amp RQID [facility] Administration Alprazolam 0.25 mg 04/22/18 11:15 04/25/18 09:35 Xanax - PO 0.25 mg BID [facility] Administration Amlodipine Besylate 10 mg 04/20/18 10:00 04/25/18 09:35 Norvasc - PO 10 mg DAILY [facility] Administration Atorvastatin Calcium 80 mg 04/19/18 22:00 04/24/18 21:10 Lipitor - PO 80 mg HS [facility] Administration Budesonide/Formoterol Fumarate 2 puff 04/19/18 22:00 04/25/18 09:36 Symbicort 80/4.5mcg - IH 2 puff BID [facility] Administration Clopidogrel Bisulfate 75 mg 04/20/18 10:00 04/25/18 09:36 Plavix - PO 75 mg DAILY [facility] Administration Heparin Sodium (Porcine) 5,000 unit 04/21/18 22:00 04/25/18 09:37 Heparin - SQ 5,000 unit BID [facility] Administration Losartan Potassium 100 mg 04/20/18 10:00 04/25/18 09:35 Cozaar - PO 100 mg DAILY [facility] Administration Methylprednisolone Sodium Succinate 60 mg 04/21/18 18:00 04/25/18 09:36 Solu-Medrol - IVPUSH 60 mg Q8H-IV [facility] Administration Nicotine 21 mg 04/20/18 10:00 04/25/18 09:36 Nicoderm Patch - TD 21 mg DAILY [facility] Administration Pt's Own Med ( 1 each 04/19/18 22:00 Tudorza (Aclidinum [facility] [place]) BID [facility] CBC, BMP 04/25/18 06:30 04/23/18 05:30 cxr: no chf ecg: sr, nl intervals, no ischemic changes echo 03/2016: tds, mild dec lvef, nl rv, no sig valve path tele: sr, occ pvcs Assessment/Plan sob, cough, copd: -getting abx, steroids for copd, pulm following chronic CAD, remote pci, w/o angina: -mult prior stents (prox and mid LAD, entire RCA and RPDA) all patent on cath 2013 -no angina (chronic sob with chest pressure is copd sx--present prior to cath and unchanged since) -no signs acs -cont plavix, statin, arb chronic diast chf -borderline depressed LVEF (45% on v-gram, 50% echo 2015) with moderately incr' d LVEDP at cath (24) -never clinical chf, no sob response to trial of lasix in past -current exam--clinically euvolemic -no diuretics needed HTN: -known bp lability from anxiety at times -reasonably controlled here HPL: -cont home statin +cigs: -counselled on cessation many times, not interested in quitting descending thoracic aortic aneurysm: -mild, stable size on 12/2017 ct chest -cont bp control
--- NOTE | 2018-04-25 10:23 | PN ---
Progress Note, Physician Chief Complaint: AWAKE ALERT FEELS BETTER - Current Medication List Current Medications: Active Medications Albuterol Sulfate (Ventolin 0.083% Nebulizer Soln -) 1 amp NEB Q4H PRN PRN Reason: SHORT OF BREATH/WHEEZING Last Admin: 04/22/18 04:34 Dose: 1 amp Albuterol/Ipratropium (Duoneb -) 1 amp NEB RQID [facility] Last Admin: 04/25/18 09:00 Dose: 1 amp Alprazolam (Xanax -) 0.25 mg PO BID [facility] Last Admin: 04/25/18 09:35 Dose: 0.25 mg Amlodipine Besylate (Norvasc -) 10 mg PO DAILY [facility] Last Admin: 04/25/18 09:35 Dose: 10 mg Atorvastatin Calcium (Lipitor -) 80 mg PO HS [facility] Last Admin: 04/24/18 21:10 Dose: 80 mg Budesonide/Formoterol Fumarate (Symbicort 80/4.5mcg -) 2 puff IH BID [facility] Last Admin: 04/25/18 09:36 Dose: 2 puff Clopidogrel Bisulfate (Plavix -) 75 mg PO DAILY [facility] Last Admin: 04/25/18 09:36 Dose: 75 mg Heparin Sodium (Porcine) (Heparin -) 5,000 unit SQ BID [facility] Last Admin: 04/25/18 09:37 Dose: 5,000 unit Losartan Potassium (Cozaar -) 100 mg PO DAILY [facility] Last Admin: 04/25/18 09:35 Dose: 100 mg Methylprednisolone Sodium Succinate (Solu-Medrol -) 60 mg IVPUSH Q8H-IV [facility] Last Admin: 04/25/18 09:36 Dose: 60 mg Nicotine (Nicoderm Patch -) 21 mg TD DAILY [facility] Last Admin: 04/25/18 09:36 Dose: 21 mg Pt's Own Med ( Tudorza (Aclidinum [place]) 1 each IH BID [facility] - Objective Vital Signs: Vital Signs Temperature 98 F 04/25/18 09:37 Pulse Rate 70 04/25/18 09:37 Respiratory Rate 20 04/25/18 09:37 Blood Pressure 150/69 04/25/18 09:37 O2 Sat by Pulse Oximetry (%) 85 L 04/24/18 20:16 Constitutional: Yes: No Distress Eyes: Yes: WNL HENT: Yes: WNL Neck: Yes: WNL Cardiovascular: Yes: WNL Respiratory: Yes: Cough, On Nasal O2, SOB Gastrointestinal: Yes: WNL Genitourinary: Yes: WNL Musculoskeletal: Yes: WNL Extremities: Yes: WNL Edema: No Peripheral Pulses WNL: Yes Integumentary: Yes: WNL Wound/Incision: Yes: Clean/Dry Neurological: Yes: WNL ...Motor Strength: WNL Psychiatric: Yes: WNL Labs: CBC, BMP 04/25/18 06:30 04/23/18 05:30 INR, PTT INR 0.95 (0.82-1.09) 04/20/18 10:00 Problem List - Problems (1) ASHD (arteriosclerotic heart disease) Code(s): I25.10 - ATHSCL HEART DISEASE OF [place] CORONARY ARTERY W/O ANG PCTRS (2) Acute on chronic respiratory failure with hypercapnia Code(s): J96.22 - ACUTE AND CHRONIC RESPIRATORY FAILURE WITH HYPERCAPNIA (3) Bladder cancer Code(s): C67.9 - MALIGNANT NEOPLASM OF BLADDER, UNSPECIFIED (4) CAD (coronary artery disease) Code(s): I25.10 - ATHSCL HEART DISEASE OF [place] CORONARY ARTERY W/O ANG PCTRS (5) CKD (chronic kidney disease) Code(s): N18.9 - CHRONIC KIDNEY DISEASE, UNSPECIFIED (6) COPD exacerbation Code(s): J44.1 - CHRONIC OBSTRUCTIVE PULMONARY DISEASE W (ACUTE) EXACERBATION (7) DVT prophylaxis Code(s): [id number] - (8) Dyspnea Code(s): R06.00 - DYSPNEA, UNSPECIFIED (9) Tobacco abuse Code(s): Z72.0 - TOBACCO USE (10) H/O acute myocardial infarction Code(s): I25.2 - OLD MYOCARDIAL INFARCTION (11) Anxiety Code(s): F41.9 - ANXIETY DISORDER, UNSPECIFIED Assessment/Plan TAPER OFF STEROIDS STOP ABX 02 SUPPORT WILL NEED VICE PRESIDENT SALES AND MARKETING FOR ASSISTANCE WITH HOME 02 EVALUATION FOR TANKS AND CONCENTRATOR OOB TO CHAIR NEBS SMOKING CESSATION
--- NOTE | 2018-04-25 13:44 | PN ---
Progress Note, Physician History of Present Illness: Pt seen and examined at bedside. She is awake and alert. She feels that her breathing is improved. - Current Medication List Current Medications: Active Medications Albuterol Sulfate (Ventolin 0.083% Nebulizer Soln -) 1 amp NEB Q4H PRN PRN Reason: SHORT OF BREATH/WHEEZING Last Admin: 04/22/18 04:34 Dose: 1 amp Albuterol/Ipratropium (Duoneb -) 1 amp NEB RQID [facility] Last Admin: 04/25/18 12:49 Dose: 1 amp Alprazolam (Xanax -) 0.25 mg PO BID [facility] Last Admin: 04/25/18 09:35 Dose: 0.25 mg Amlodipine Besylate (Norvasc -) 10 mg PO DAILY [facility] Last Admin: 04/25/18 09:35 Dose: 10 mg Atorvastatin Calcium (Lipitor -) 80 mg PO HS [facility] Last Admin: 04/24/18 21:10 Dose: 80 mg Budesonide/Formoterol Fumarate (Symbicort 80/4.5mcg -) 2 puff IH BID [facility] Last Admin: 04/25/18 09:36 Dose: 2 puff Clopidogrel Bisulfate (Plavix -) 75 mg PO DAILY [facility] Last Admin: 04/25/18 09:36 Dose: 75 mg Heparin Sodium (Porcine) (Heparin -) 5,000 unit SQ BID [facility] Last Admin: 04/25/18 09:37 Dose: 5,000 unit Losartan Potassium (Cozaar -) 100 mg PO DAILY [facility] Last Admin: 04/25/18 09:35 Dose: 100 mg Methylprednisolone Sodium Succinate (Solu-Medrol -) 60 mg IVPUSH Q8H-IV [facility] Last Admin: 04/25/18 09:36 Dose: 60 mg Nicotine (Nicoderm Patch -) 21 mg TD DAILY [facility] Last Admin: 04/25/18 09:36 Dose: 21 mg Pt's Own Med ( Tudorza (Aclidinum [place]) 1 each IH BID [facility] - Objective Vital Signs: Vital Signs Temperature 98 F 04/25/18 09:37 Pulse Rate 70 04/25/18 09:37 Respiratory Rate 20 04/25/18 09:37 Blood Pressure 150/69 04/25/18 09:37 O2 Sat by Pulse Oximetry (%) 87 L 04/25/18 09:00 Constitutional: Yes: Calm Eyes: Yes: Conjunctiva Clear HENT: Yes: Atraumatic Neck: Yes: Supple Cardiovascular: Yes: S1, S2 Respiratory: Yes: On Nasal O2, Wheezes Gastrointestinal: Yes: Soft Musculoskeletal: Yes: WNL Edema: No Neurological: Yes: Oriented Psychiatric: Yes: Oriented Labs: CBC, BMP 04/25/18 06:30 04/23/18 05:30 INR, PTT INR 0.95 (0.82-1.09) 04/20/18 10:00 Problem List - Problems (1) CKD (chronic kidney disease) Code(s): N18.9 - CHRONIC KIDNEY DISEASE, UNSPECIFIED (2) ASHD (arteriosclerotic heart disease) Code(s): I25.10 - ATHSCL HEART DISEASE OF [place] CORONARY ARTERY W/O ANG PCTRS (3) Acute on chronic respiratory failure with hypercapnia Code(s): J96.22 - ACUTE AND CHRONIC RESPIRATORY FAILURE WITH HYPERCAPNIA (4) Bladder cancer Code(s): C67.9 - MALIGNANT NEOPLASM OF BLADDER, UNSPECIFIED (5) CAD (coronary artery disease) Code(s): I25.10 - ATHSCL HEART DISEASE OF [place] CORONARY ARTERY W/O ANG PCTRS (6) COPD exacerbation Code(s): J44.1 - CHRONIC OBSTRUCTIVE PULMONARY DISEASE W (ACUTE) EXACERBATION (7) COPD (chronic obstructive pulmonary disease) Code(s): J44.9 - CHRONIC OBSTRUCTIVE PULMONARY DISEASE, UNSPECIFIED Assessment/Plan Current Medications Generic Name Dose Route Start Last Admin Trade Name Freq PRN Reason Stop Dose Admin Albuterol Sulfate 1 amp 04/19/18 18:29 04/22/18 04:34 Ventolin 0.083% Nebulizer Soln - NEB 1 amp Q4H PRN Administration SHORT OF BREATH/WHEEZING Albuterol/Ipratropium 1 amp 04/19/18 20:00 04/25/18 12:49 Duoneb - NEB 1 amp RQID [facility] Administration Alprazolam 0.25 mg 04/22/18 11:15 04/25/18 09:35 Xanax - PO 0.25 mg BID [facility] Administration Amlodipine Besylate 10 mg 04/20/18 10:00 04/25/18 09:35 Norvasc - PO 10 mg DAILY [facility] Administration Atorvastatin Calcium 80 mg 04/19/18 22:00 04/24/18 21:10 Lipitor - PO 80 mg HS [facility] Administration Budesonide/Formoterol Fumarate 2 puff 04/19/18 22:00 04/25/18 09:36 Symbicort 80/4.5mcg - IH 2 puff BID [facility] Administration Clopidogrel Bisulfate 75 mg 04/20/18 10:00 04/25/18 09:36 Plavix - PO 75 mg DAILY [facility] Administration Heparin Sodium (Porcine) 5,000 unit 04/21/18 22:00 04/25/18 09:37 Heparin - SQ 5,000 unit BID [facility] Administration Losartan Potassium 100 mg 04/20/18 10:00 04/25/18 09:35 Cozaar - PO 100 mg DAILY [facility] Administration Methylprednisolone Sodium Succinate 60 mg 04/21/18 18:00 04/25/18 09:36 Solu-Medrol - IVPUSH 60 mg Q8H-IV [facility] Administration Nicotine 21 mg 04/20/18 10:00 04/25/18 09:36 Nicoderm Patch - TD 21 mg DAILY [facility] Administration Pt's Own Med ( 1 each 04/19/18 22:00 Tudorza (Aclidinum [facility] [place]) BID [facility] Impression 1. CKD 2. resp failure requiring oxygen 3. HTN 4. CAD 5. COPD 6. hyperlipidemia 7. bladder cancer 8. active smoker Plan - taper steroids per pulmonary - will need outpt follow up - renal function had stabilized, no new labs - smoking cessation - avoid nsaids - cont crystal Herring
[2018-04-25] MEDS ORDERED: PT OWN MED DRAWER 7, Y5N ONE (21:29)
[2018-04-25] MEDS: ATORVASTATIN CA 80 MG TABLET (FP) PO SCH (21:31)
[2018-04-26] MEDS: methylPREDNISolone NA SUCC 125 MG/2 ML VIAL IVPUSH SCH (01:49)
[2018-04-26 06:57] LABS: ANION GAP 4 (8-16); BLOOD UREA NITROGEN 39 mg/dL (7-18); CALCIUM 8.8 mg/dL (8.5-10.1); CHLORIDE 100 mmol/L (98-107); CO2 37 mmol/L (21-32); GLUCOSE,RANDOM 112 mg/dL (74-106); POTASSIUM 5.3 mmol/L (3.5-5.1); SODIUM 141 mmol/L (136-145)
[2018-04-26] MEDS: ALBUTEROL SO4 2.5/IPRATROPIUM 0.5 INH SOL 3 ML VIAL.NEB. NEB SCH ×2 (07:22→11:05)
--- NOTE | 2018-04-26 08:37 | DS ---
Physical Examination Vital Signs: Vital Signs Temperature 98.0 F 04/26/18 06:00 Pulse Rate 66 04/26/18 06:00 Respiratory Rate 20 04/26/18 06:00 Blood Pressure 124/85 04/26/18 06:00 O2 Sat by Pulse Oximetry (%) 93 L 04/25/18 21:00 Findings/Remarks: doing better no cp no sob Cardiovascular: Yes: S1, S2 Respiratory: Yes: Regular, CTA Bilaterally Gastrointestinal: Yes: Normal Bowel Sounds, Soft Labs: CBC, BMP 04/25/18 06:30 04/26/18 05:45 Discharge Summary Reason For Visit: ACUTE EXACERBATION OF COPD Current Active Problems ASHD (arteriosclerotic heart disease) (Acute) Acute on chronic respiratory failure with hypercapnia (Acute) Anxiety (Acute) Bladder cancer (Acute) CAD (coronary artery disease) (Acute) CKD (chronic kidney disease) (Acute) COPD exacerbation (Acute) DVT prophylaxis (Acute) Dyspnea (Acute) Skin lesion (Acute) Tobacco abuse (Acute) Hospital Course: - Problems (1) COPD exacerbation Assessment/Plan: - Cardiac monitoring - Pulm following - Albuterol nebs - Continue home meds - O2- NC, - Smoking Cessation discussed, patient is not amendable - ABGs- reviewed - po steroids Code(s): J44.1 - CHRONIC OBSTRUCTIVE PULMONARY DISEASE W (ACUTE) EXACERBATION (2) Dyspnea Assessment/Plan: -as above Code(s): R06.00 - DYSPNEA, UNSPECIFIED (3) HTN (hypertension) Code(s): I10 - ESSENTIAL (PRIMARY) HYPERTENSION (4) CAD (coronary artery disease) Assessment/Plan: - s/p Stents - continue home meds Code(s): I25.10 - ATHSCL HEART DISEASE OF [place] CORONARY ARTERY W/O ANG PCTRS (5) Tobacco abuse Assessment/Plan: 8. Tobacco Dependency - Smoking Cessation discussed, patient is not amendable - Patient declines Nicoderm patches Code(s): Z72.0 - TOBACCO USE (6) Bladder cancer Assessment/Plan: - BCG treatments - Appreciate Oncology consult Code(s): C67.9 - MALIGNANT NEOPLASM OF BLADDER, UNSPECIFIED (7) Skin lesion Assessment/Plan: - Suspicious for squamous cell carcinoma - Dermatology consult Code(s): L98.9 - DISORDER OF THE SKIN AND SUBCUTANEOUS TISSUE, UNSPECIFIED Condition: Improved - Instructions Referrals: Khanh Gutiérrez MD [Primary Care Provider] - 1 Week Disposition: VNS/HOME HEALTH CARE - Home Medications Comprehensive Discharge Medication List: Ambulatory Orders Albuterol Sulfate [Proair Respiclick] 1 mcg IH DAILY PRN 05/08/16 Amlodipine Besylate 10 mg PO DAILY 05/08/16 Losartan Potassium 100 mg PO DAILY 05/08/16 Clopidogrel Bisulfate [Plavix -] 75 mg PO DAILY #0 05/12/16 Fluticasone/Salmeterol [Advair 250-50 Diskus] 1 each IH BID 09/09/16 Aclidinium [place] [Tudorza -] 1 puff IH BID inhaler 11/03/16 Atorvastatin Ca [Lipitor] 80 mg PO HS tablet 11/03/16 Diphenhydramine HCl [Benadryl Capsule -] 25 mg PO Q6H PRN #20 capsule 11/03/16 Lactobacillus Acidophilus [Bacid -] 1 tab PO BID #60 tab 11/03/16 Nicotine Patch [Nicoderm Patch -] 21 mg TD DAILY #30 patch 11/03/16 Albuterol 2.5/Ipratropium 0.5 [Duoneb -] 1 amp NEB RQID amp 04/26/18 Alprazolam [Xanax] 0.25 mg PO BID #20 tablet MDD 2 04/26/18 predniSONE [Deltasone -] 30 mg PO BID #100 tablet 04/26/18
[2018-04-26] MEDS: ALPRAZolam 0.25 MG TABLET PO SCH (09:10)
[2018-04-26] MEDS: HEPARIN NA (PORCINE) 5,000 UNITS/ML 1ML VIAL SQ SCH (09:10)
[2018-04-26] MEDS: LOSARTAN POTASSIUM 50 MG TABLET (FP) PO SCH (09:10)
[2018-04-26] MEDS: CLOPIDOGREL BISULFATE 75 MG TABLET (FP) PO SCH (09:11)
[2018-04-26] MEDS: NICOTINE 21 MG/24 HOURS TOPICAL PATCH TD SCH ×2 (09:11→09:23)
[2018-04-26] MEDS: BUDESONIDE/FORMETEROL FUMARATE 80/4.5 mcg INHALER IH SCH (09:11)
[2018-04-26] MEDS: amLODIPine BESYLATE 10 MG TABLET (FP) PO SCH (09:11)
[2018-04-26] MEDS ORDERED: predniSONE 10 MG TABLET (UD) PO SCH (10:00)
[2018-04-26 10:21] VITALS: BP 160/67; TEMP 98.9
--- NOTE | 2018-04-26 11:00 | PN ---
Progress Note, Physician History of Present Illness: Pt seen and examined at bedside. She is eager to go home. She feels that her breathing is improved. - Current Medication List Current Medications: Active Medications Albuterol Sulfate (Ventolin 0.083% Nebulizer Soln -) 1 amp NEB Q4H PRN PRN Reason: SHORT OF BREATH/WHEEZING Last Admin: 04/22/18 04:34 Dose: 1 amp Albuterol/Ipratropium (Duoneb -) 1 amp NEB RQID [facility] Last Admin: 04/26/18 07:22 Dose: 1 amp Alprazolam (Xanax -) 0.25 mg PO BID [facility] Last Admin: 04/26/18 09:10 Dose: 0.25 mg Amlodipine Besylate (Norvasc -) 10 mg PO DAILY [facility] Last Admin: 04/26/18 09:11 Dose: 10 mg Atorvastatin Calcium (Lipitor -) 80 mg PO HS [facility] Last Admin: 04/25/18 21:31 Dose: 80 mg Budesonide/Formoterol Fumarate (Symbicort 80/4.5mcg -) 2 puff IH BID [facility] Last Admin: 04/26/18 09:11 Dose: 2 puff Clopidogrel Bisulfate (Plavix -) 75 mg PO DAILY [facility] Last Admin: 04/26/18 09:11 Dose: 75 mg Heparin Sodium (Porcine) (Heparin -) 5,000 unit SQ BID [facility] Last Admin: 04/26/18 09:10 Dose: 5,000 unit Losartan Potassium (Cozaar -) 100 mg PO DAILY [facility] Last Admin: 04/26/18 09:10 Dose: 100 mg Nicotine (Nicoderm Patch -) 21 mg TD DAILY [facility] Last Admin: 04/26/18 09:23 Dose: Not Given Prednisone (Deltasone -) 30 mg PO BID [facility] Last Admin: 04/26/18 09:21 Dose: 30 mg - Objective Vital Signs: Vital Signs Temperature 98.9 F 04/26/18 09:00 Pulse Rate 76 04/26/18 09:00 Respiratory Rate 20 04/26/18 09:00 Blood Pressure 160/67 04/26/18 09:00 O2 Sat by Pulse Oximetry (%) 88 L 04/26/18 09:00 Constitutional: Yes: Calm Eyes: Yes: Conjunctiva Clear HENT: Yes: Atraumatic Neck: Yes: Supple Cardiovascular: Yes: S1, S2 Respiratory: Yes: On Nasal O2, Wheezes, Other (improved) Gastrointestinal: Yes: Soft Genitourinary: Yes: WNL Musculoskeletal: Yes: WNL Edema: No Neurological: Yes: Oriented Psychiatric: Yes: Oriented Labs: CBC, BMP 04/25/18 06:30 04/26/18 05:45 INR, PTT INR 0.95 (0.82-1.09) 04/20/18 10:00 Problem List - Problems (1) CKD (chronic kidney disease) Code(s): N18.9 - CHRONIC KIDNEY DISEASE, UNSPECIFIED (2) ASHD (arteriosclerotic heart disease) Code(s): I25.10 - ATHSCL HEART DISEASE OF [place] CORONARY ARTERY W/O ANG PCTRS (3) Acute on chronic respiratory failure with hypercapnia Code(s): J96.22 - ACUTE AND CHRONIC RESPIRATORY FAILURE WITH HYPERCAPNIA (4) Bladder cancer Code(s): C67.9 - MALIGNANT NEOPLASM OF BLADDER, UNSPECIFIED (5) CAD (coronary artery disease) Code(s): I25.10 - ATHSCL HEART DISEASE OF [place] CORONARY ARTERY W/O ANG PCTRS (6) COPD exacerbation Code(s): J44.1 - CHRONIC OBSTRUCTIVE PULMONARY DISEASE W (ACUTE) EXACERBATION (7) COPD (chronic obstructive pulmonary disease) Code(s): J44.9 - CHRONIC OBSTRUCTIVE PULMONARY DISEASE, UNSPECIFIED Assessment/Plan Current Medications Generic Name Dose Route Start Last Admin Trade Name Freq PRN Reason Stop Dose Admin Albuterol Sulfate 1 amp 04/19/18 18:29 04/22/18 04:34 Ventolin 0.083% Nebulizer Soln - NEB 1 amp Q4H PRN Administration SHORT OF BREATH/WHEEZING Albuterol/Ipratropium 1 amp 04/19/18 20:00 04/26/18 07:22 Duoneb - NEB 1 amp RQID [facility] Administration Alprazolam 0.25 mg 04/22/18 11:15 04/26/18 09:10 Xanax - PO 0.25 mg BID [facility] Administration Amlodipine Besylate 10 mg 04/20/18 10:00 04/26/18 09:11 Norvasc - PO 10 mg DAILY [facility] Administration Atorvastatin Calcium 80 mg 04/19/18 22:00 04/25/18 21:31 Lipitor - PO 80 mg HS [facility] Administration Budesonide/Formoterol Fumarate 2 puff 04/19/18 22:00 04/26/18 09:11 Symbicort 80/4.5mcg - IH 2 puff BID [facility] Administration Clopidogrel Bisulfate 75 mg 04/20/18 10:00 04/26/18 09:11 Plavix - PO 75 mg DAILY [facility] Administration Heparin Sodium (Porcine) 5,000 unit 04/21/18 22:00 04/26/18 09:10 Heparin - SQ 5,000 unit BID [facility] Administration Losartan Potassium 100 mg 04/20/18 10:00 04/26/18 09:10 Cozaar - PO 100 mg DAILY [facility] Administration Nicotine 21 mg 04/20/18 10:00 04/26/18 09:23 Nicoderm Patch - TD Not Given DAILY [facility] Prednisone 30 mg 04/26/18 10:00 04/26/18 09:21 Deltasone - PO 30 mg BID [facility] Administration Impression 1. CKD 2. resp failure requiring oxygen 3. HTN 4. CAD 5. COPD 6. hyperlipidemia 7. bladder cancer 8. active smoker Plan - encourage PO fluid intake - pt wants to go home - repeat potassium as outpt as she does not want to stay - smoking cessation - avoid nsaids - cont cozaar, may need to stop or decrease dose if repeat potassium is elevated Dr Herring
[2018-04-26 11:05] VITALS: PULSE 81
--- NOTE | 2018-04-26 11:18 | PN ---
Progress Note, Physician History of Present Illness: PULMONARY ALERT,FEELING BETTER,DYSPNEA IMPROVING,REMAINS HYPOXIC ON O2 - Current Medication List Current Medications: Active Medications Albuterol Sulfate (Ventolin 0.083% Nebulizer Soln -) 1 amp NEB Q4H PRN PRN Reason: SHORT OF BREATH/WHEEZING Last Admin: 04/22/18 04:34 Dose: 1 amp Albuterol/Ipratropium (Duoneb -) 1 amp NEB RQID [facility] Last Admin: 04/26/18 11:05 Dose: 1 amp Alprazolam (Xanax -) 0.25 mg PO BID [facility] Last Admin: 04/26/18 09:10 Dose: 0.25 mg Amlodipine Besylate (Norvasc -) 10 mg PO DAILY [facility] Last Admin: 04/26/18 09:11 Dose: 10 mg Atorvastatin Calcium (Lipitor -) 80 mg PO HS [facility] Last Admin: 04/25/18 21:31 Dose: 80 mg Budesonide/Formoterol Fumarate (Symbicort 80/4.5mcg -) 2 puff IH BID [facility] Last Admin: 04/26/18 09:11 Dose: 2 puff Clopidogrel Bisulfate (Plavix -) 75 mg PO DAILY [facility] Last Admin: 04/26/18 09:11 Dose: 75 mg Heparin Sodium (Porcine) (Heparin -) 5,000 unit SQ BID [facility] Last Admin: 04/26/18 09:10 Dose: 5,000 unit Losartan Potassium (Cozaar -) 100 mg PO DAILY [facility] Last Admin: 04/26/18 09:10 Dose: 100 mg Nicotine (Nicoderm Patch -) 21 mg TD DAILY [facility] Last Admin: 04/26/18 09:23 Dose: Not Given Prednisone (Deltasone -) 30 mg PO BID [facility] Last Admin: 04/26/18 09:21 Dose: 30 mg - Objective Vital Signs: Vital Signs Temperature 98.9 F 04/26/18 09:00 Pulse Rate 81 04/26/18 10:53 Respiratory Rate 20 04/26/18 09:00 Blood Pressure 160/67 04/26/18 09:00 O2 Sat by Pulse Oximetry (%) 85 L 04/26/18 10:53 Constitutional: Yes: Calm, Thin Eyes: Yes: WNL HENT: Yes: WNL Neck: Yes: WNL Cardiovascular: Yes: Regular Rate and Rhythm, S1, S2 Respiratory: Yes: Diminished Gastrointestinal: Yes: Normal Bowel Sounds, Soft Extremities: Yes: WNL Edema: No Labs: 04/26/18 05:45 INR, PTT INR 0.95 (0.82-1.09) 04/20/18 10:00 Problem List - Problems (1) Acute on chronic respiratory failure with hypercapnia Code(s): J96.22 - ACUTE AND CHRONIC RESPIRATORY FAILURE WITH HYPERCAPNIA (2) COPD exacerbation Code(s): J44.1 - CHRONIC OBSTRUCTIVE PULMONARY DISEASE W (ACUTE) EXACERBATION (3) H/O acute myocardial infarction Code(s): I25.2 - OLD MYOCARDIAL INFARCTION (4) HTN (hypertension) Code(s): I10 - ESSENTIAL (PRIMARY) HYPERTENSION (5) Bladder cancer Code(s): C67.9 - MALIGNANT NEOPLASM OF BLADDER, UNSPECIFIED (6) ASHD (arteriosclerotic heart disease) Code(s): I25.10 - ATHSCL HEART DISEASE OF [place] CORONARY ARTERY W/O ANG PCTRS (7) Weight loss Code(s): R63.4 - ABNORMAL WEIGHT LOSS Assessment/Plan IMP ACUTE ON CHRONIC HYPOXEMIC/YPERCAPNEIC RESPIRATORY FAILURE COPD EXACERBATION IMPROVED END STAGE COPD O2 DEPENDENT ASHD S/P STENTS BLADDER CA ON BCG SECONDARY ERYTHROCYTOSIS TOBACCO ABUSE TOPHER PLAN PREDNISONE INHALED BRONCHODILATORS O2 TO MAINTAIN SAT 90% OR GREATER OUTPATIENT PULMONARY REHAB DR LORD Problem List - Problems (1) Acute on chronic respiratory failure with hypercapnia Code(s): J96.22 - ACUTE AND CHRONIC RESPIRATORY FAILURE WITH HYPERCAPNIA (2) COPD exacerbation Code(s): J44.1 - CHRONIC OBSTRUCTIVE PULMONARY DISEASE W (ACUTE) EXACERBATION (3) H/O acute myocardial infarction Code(s): I25.2 - OLD MYOCARDIAL INFARCTION (4) HTN (hypertension) Code(s): I10 - ESSENTIAL (PRIMARY) HYPERTENSION (5) Bladder cancer Code(s): C67.9 - MALIGNANT NEOPLASM OF BLADDER, UNSPECIFIED (6) ASHD (arteriosclerotic heart disease) Code(s): I25.10 - ATHSCL HEART DISEASE OF [place] CORONARY ARTERY W/O ANG PCTRS (7) Weight loss Code(s): R63.4 - ABNORMAL WEIGHT LOSS
== END 2018-04-26 13:33 | disposition home health service (06) | DRG 189 ==
LOC: JER 13:51 → JERBED 17:32 → J4S 04-20 15:05
PROVIDERS: ADMIT Family Medicine; ATTEND Family Medicine
DX: J96.21 Acute and chronic respiratory failure with hypoxia (principal); J44.1 Chronic obstructive pulmonary disease with (acute) exacerbation; I50.32 Chronic diastolic (congestive) heart failure; J98.11 Atelectasis; N17.9 Acute kidney failure, unspecified; I13.0 Hypertensive heart and chronic kidney disease with heart failure and stage 1 through stage 4 chronic kidney disease, or unspecified chronic kidney disease; J96.22 Acute and chronic respiratory failure with hypercapnia; D75.1 Secondary polycythemia; C67.9 Malignant neoplasm of bladder, unspecified; N18.3 Chronic kidney disease, stage 3 (moderate); I71.2 Thoracic aortic aneurysm, without rupture; I25.10 Atherosclerotic heart disease of native coronary artery without angina pectoris; E78.5 Hyperlipidemia, unspecified; Z98.61 Coronary angioplasty status; F17.210 Nicotine dependence, cigarettes, uncomplicated
CPT/HCPCS: 36415; 36600; 71046-TC-FY; 71275-TC; 80048; 80053; 81003; 82375; 82436; 82570; 82803; 83050; 83735; 84133; 84300; 85025; 85027; 85379; 85610; 85730; 87077; 87086; 93005; 93010; 94640; 94761; 97116-GP; 97161-GP; 99284-25; J1644; J7030; J7620

== ENCOUNTER 2018-05-05 10:00 | Emergency (ER) | payer OTHER, MEDICARE ==
[2018-05-05 10:08] VITALS: BMI 19.5
--- NOTE | 2018-05-05 10:34 | PDOC ---
History of Present Illness - General Chief Complaint: Pain Stated Complaint: RT FOOT PAIN Time Seen by Provider: 05/05/18 10:12 Past History - Travel Traveled outside of the country in the last 30 days: No Close contact w/someone who was outside of country & ill: No - Past Medical History Allergies/Adverse Reactions: Allergies Allergy/AdvReac Type Severity Reaction Status Date / Time No Known Drug Allergies Allergy Verified 05/05/18 10:04 Home Medications: Ambulatory Orders Amlodipine Besylate 10 mg PO DAILY 05/08/16 Losartan Potassium 100 mg PO DAILY 05/08/16 Clopidogrel Bisulfate [Plavix -] 75 mg PO DAILY #0 05/12/16 Atorvastatin Ca [Lipitor] 80 mg PO HS tablet 11/03/16 Lactobacillus Acidophilus [Bacid -] 1 tab PO BID #60 tab 11/03/16 Albuterol 2.5/Ipratropium 0.5 [Duoneb -] 1 amp NEB RQID amp 04/26/18 Alprazolam [Xanax] 0.25 mg PO BID #20 tablet MDD 2 04/26/18 Asthma: Yes (copd) Cancer: Yes (bladder) Cardiac Disorders: Yes ([place] 2007, stents 2008) CVA: No COPD: Yes (uses 02 3l prn) CHF: No Dementia: No Diabetes: No (pre diabetic) GI Disorders: No Disorders: Yes (turbt) HTN: Yes Hypercholesterolemia: No Liver Disease: No Seizures: No Thyroid Disease: No - Surgical History Abdominal Surgery: No Appendectomy: No Cardiac Surgery: Yes (STENTS 2008) Cholecystectomy: No Lung Surgery: No Neurologic Surgery: No Orthopedic Surgery: Yes (GANGLION CYST) - Immunization History Immunization Up to Date: Yes - Suicide/Smoking/Psychosocial Hx Smoking History: Current every day smoker Have you smoked in the past 12 months: Yes Number of Cigarettes Smoked Daily: 20 Information on smoking cessation initiated: No 'Breaking Loose' booklet given: 04/20/18 Hx Alcohol Use: No Drug/Substance Use Hx: No Substance Use Type: None Hx Substance Use Treatment: No Review of Systems - Review of Systems Able to Perform ROS?: Yes Comments:: 05/05/18 12:52 CONSTITUTIONAL: Absent: fever, chills, diaphoresis, generalized weakness, malaise, loss of appetite HEENT: Absent: rhinorrhea, nasal congestion, throat pain, throat swelling, difficulty swallowing, mouth swelling, ear pain, eye pain, visual Changes CARDIOVASCULAR: Absent: chest pain, loss of consciousness, palpitations, irregular heart rate, peripheral edema RESPIRATORY: Absent: cough, shortness of breath, dyspnea with exertion, orthopnea, wheezing, stridor, hemoptysis GASTROINTESTINAL: Absent: abdominal pain, abdominal distension, nausea, vomiting, diarrhea, constipation, melena, hematochezia GENITOURINARY: Absent: dysuria, frequency, urgency, hesitancy, hematuria, flank pain, genital pain MUSCULOSKELETAL: Absent: myalgia, arthralgia, joint swelling SKIN: Absent: rash, itching, pallor HEMATOLOGIC/IMMUNOLOGIC: Absent: easy bleeding, easy bruising, lymphadenopathy, frequent infections ENDOCRINE: Absent: unexplained weight gain, unexplained weight loss, heat intolerance, cold intolerance NEUROLOGIC: Absent: headache, focal weakness or paresthesias, dizziness, unsteady gait, seizure, mental status changes, bladder or bowel incontinence PSYCHIATRIC: Absent: anxiety, depression, suicidal or homicidal ideation, hallucinations. Is the patient limited [place] proficient: No *Physical Exam - Vital Signs Last Vital Signs Temp Pulse Resp BP Pulse Ox 98.4 F 79 26 H 128/64 90 L 05/05/18 10:05 05/05/18 10:05 05/05/18 10:05 05/05/18 10:05 05/05/18 10:05 - Physical Exam Comments: 05/05/18 12:52 GENERAL: Well developed, well nourished. Awake and alert. No acute distress. HEENT: Normocephalic, atraumatic. PERRLA, EOMI. No conjunctival pallor. Sclera are non- icteric. Moist mucous membranes. Oropharynx is clear. NECK: Supple. Full ROM. No JVD. Carotid pulses 2+ and symmetric, without bruits. No thyromegaly. No lymphadenopathy. CARDIOVASCULAR: Regular rate and rhythm. No murmurs, rubs, or gallops. Distal pulses are 2+ and symmetric. PULMONARY: No evidence of respiratory distress. Lungs clear to auscultation bilaterally. No wheezing, rales or rhonchi. ABDOMINAL: Soft. Non-tender. Non-distended. No rebound or guarding. No organomegaly. Normoactive bowel sounds. MUSCULOSKELETAL Normal range of motion at all joints. No bony deformities or tenderness. No CVA tenderness. EXTREMITIES: No cyanosis. No clubbing. No edema. No calf tenderness. SKIN: Warm and dry. Normal capillary refill. No rashes. No jaundice. NEUROLOGICAL: Alert, awake, appropriate. Cranial nerves 2-12 intact. No deficits to light touch and temperature in face, upper extremities and lower extremities. No motor deficits in the in face, upper extremities and lower extremities. Normoreflexic in the upper and lower extremities. Normal speech. Toes are down- going bilaterally. Gait is normal without ataxia. PSYCHIATRIC: Cooperative. Good eye contact. Appropriate mood and affect. ED Treatment Course - LABORATORY CBC & Chemistry Diagram: 05/05/18 10:44 05/05/18 10:48 *DC/Admit/Observation/Transfer Diagnosis at time of Disposition: Hematoma - Discharge Dispostion Disposition: HOME Condition at time of disposition: Stable Decision to Admit order: No - Referrals Referrals: Khanh Gutiérrez MD [Staff Physician] - - Patient Instructions Printed Discharge Instructions: DI for Hematoma (Bruise) Additional Instructions: You have a hematoma, or bruise to your right foot. Your x-ray is negative for fracture today. Please keep the foot elevated when resting. Avoid bumping the foot and wear comfortable shoes. You may use heat to help with the swelling. You may use the heat for 20 minute intervals and then rest. Please follow up with her primary care doctor within the week. Return to the emergency department if you have worsening pain, numbness and tingling to the extremity, weakness to the foot, fevers, chills, or if you have any changes in your symptoms. - Post Discharge Activity
[2018-05-05 10:56] LABS: BASO % 0.1 % (0-2.0); EOS % 0.9 % (0-4.5); HEMATOCRIT 52.5 % (32.4-45.2); HEMOGLOBIN 17.7 GM/dL (10.7-15.3); LYMPH % 11.4 % (8-40); MCH 31.5 pg (25.7-33.7); MCHC 33.6 g/dl (32.0-36.0); MEAN CELL VOLUME 93.8 fl (80-96); MEAN PLT VOLUME 7.8 fl (7.5-11.1); MONO % 5.2 % (3.8-10.2); NEUT % 82.4 % (42.8-82.8); PLATELET COUNT 144 K/MM3 (134-434); RDW 14.8 % (11.6-15.6); WHITE BLOOD COUNT 19.5 K/mm3 (4.0-10.0)
[2018-05-05 11:17] LABS: INR 0.87 (0.82-1.09); PROTHROMBIN TIME (PATIENT) 9.8 SEC (9.7-13.0)
[2018-05-05 11:36] LABS: ALBUMIN 3.4 g/dl (3.4-5.0); ALK PHOS 66 U/L (45-117); ANION GAP 5 (8-16); BILIRUBIN,TOTAL 2.2 mg/dL (0.2-1.0); BLOOD UREA NITROGEN 29 mg/dL (7-18); CALCIUM 8.6 mg/dL (8.5-10.1); CHLORIDE 103 mmol/L (98-107); CO2 31 mmol/L (21-32); CREATININE 0.9 mg/dL (0.55-1.02); GLUCOSE,RANDOM 74 mg/dL (74-106); SGPT/ALT 77 U/L (12-78); SODIUM 139 mmol/L (136-145); TOT PROT 5.7 g/dl (6.4-8.2)
[2018-05-05 11:42] LABS: SGOT/AST 31 U/L (15-37)
[2018-05-05 13:20] VITALS: BP 111/53; PULSE 72; TEMP 97.7
== END 2018-05-05 13:19 | disposition home or self-care (01) ==
LOC: JER 10:00
DX: S90.31XA Contusion of right foot, initial encounter (principal); X58.XXXA Exposure to other specified factors, initial encounter; Y93.89 Activity, other specified; Y92.89 Other specified places as the place of occurrence of the external cause; R73.03 Prediabetes; F17.210 Nicotine dependence, cigarettes, uncomplicated; Z95.5 Presence of coronary angioplasty implant and graft; I10 Essential (primary) hypertension; J44.9 Chronic obstructive pulmonary disease, unspecified; Z85.51 Personal history of malignant neoplasm of bladder
CPT/HCPCS: 36415; 73610-TC-RT-FY; 73630-TC-RT-FY; 80053; 85025; 85610; 99284-25

== ENCOUNTER 2019-04-26 10:15 | Inpatient (IN) | payer OTHER, MEDICARE ==
[2019-04-26] MEDS: ALBUTEROL SO4 2.5/IPRATROPIUM 0.5 INH SOL 3 ML VIAL.NEB. NEB SCH ×7 (10:20→20:46)
[2019-04-26] MEDS ORDERED: ALBUTEROL SO4 2.5/IPRATROPIUM 0.5 INH SOL 3 ML VIAL.NEB. NEB ONE ×3 (10:24→18:02)
[2019-04-26] MEDS ORDERED: DEXAMETHASONE SOD PHOSPHATE 10 MG/1 ML VIAL ONE (10:31)
--- NOTE | 2019-04-26 11:02 | PDOC ---
History of Present Illness - General Chief Complaint: Shortness of Breath Stated Complaint: Shortness of Breath Time Seen by Provider: 04/26/19 10:35 - History of Present Illness Initial Comments: 04/26/19 11:19 74y/o F hx of copd, htn, heart disease, presenting with sob over the last month and acute worsening today at her doctors office. EMS was called and she was given 2 duoneb + 1 decadron treatment en route. She denies any chest/ pleuritic pain but has had cough producing yellowish white sputum. She is on 3L of oxygen at home. The sob is somewhat improved with the treatment she has on at this time. She denies any fever, chills, hemoptysis, headaches, vomiting, dysuria. 04/28/19 21:57 Past History - Past Medical History Allergies/Adverse Reactions: Allergies Allergy/AdvReac Type Severity Reaction Status Date / Time No Known Drug Allergies Allergy Verified 04/26/19 10:24 Home Medications: Ambulatory Orders Amlodipine Besylate 10 mg PO DAILY 05/08/16 Losartan Potassium 100 mg PO DAILY 05/08/16 Clopidogrel Bisulfate [Plavix -] 75 mg PO DAILY #0 05/12/16 Atorvastatin Ca [Lipitor] 80 mg PO HS tablet 11/03/16 Lactobacillus Acidophilus [Bacid -] 1 tab PO BID #60 tab 11/03/16 Albuterol 2.5/Ipratropium 0.5 [Duoneb -] 1 amp NEB RQID amp 04/26/18 Alprazolam [Xanax] 0.25 mg PO BID #20 tablet MDD 2 04/26/18 Tiotropium Br/Olodaterol HCl [Stiolto Respimat Inhal [place]] 2 puff IH DAILY Tiotropium [place] [Spiriva] 18 mcg IH DAILY 04/26/19 Asthma: Yes (copd) Cancer: Yes (bladder) Cardiac Disorders: Yes ([place] 2007, stents 2008) CVA: No COPD: Yes (uses 02 3l prn) CHF: No Dementia: No Diabetes: No (pre diabetic) GI Disorders: No Disorders: Yes (turbt) HTN: Yes Hypercholesterolemia: No Liver Disease: No Seizures: No Thyroid Disease: No - Surgical History Abdominal Surgery: No Appendectomy: No Cardiac Surgery: Yes (STENTS 2008) Cholecystectomy: No Lung Surgery: No Neurologic Surgery: No Orthopedic Surgery: Yes (GANGLION CYST) - Immunization History Immunization Up to Date: Yes - Suicide/Smoking/Psychosocial Hx Smoking History: Current every day smoker Have you smoked in the past 12 months: Yes Number of Cigarettes Smoked Daily: 40 Information on smoking cessation initiated: No 'Breaking Loose' booklet given: 04/20/18 Hx Alcohol Use: No Drug/Substance Use Hx: No Substance Use Type: None Hx Substance Use Treatment: No *Physical Exam - Vital Signs Last Vital Signs Temp Pulse Resp BP Pulse Ox 112 H 32 H 152/83 91 L 04/26/19 10:22 04/26/19 10:22 04/26/19 10:22 04/26/19 10:33 - Physical Exam General Appearance: Yes: Appropriately Dressed, Apparent Distress, Thin Neck: positive: Trachea midline, Supple Respiratory/Chest: positive: Respiratory Distress, Accessory Muscle Use, Labored Respiration, Rhonchi. negative: Chest Tender, Normal Breath Sounds, Crackles Cardiovascular: positive: Regular Rhythm, Regular Rate, S1, S2. negative: Edema , JVD Extremity: positive: Normal Capillary Refill, Normal Inspection, Normal Range of Motion. negative: Cyanosis Integumentary: positive: Dry, Warm. negative: Jaundice Neurologic: positive: Fully Oriented, Alert, Normal Mood/Affect, Normal Response ED Treatment Course - LABORATORY CBC & Chemistry Diagram: 04/27/19 06:45 04/28/19 05:00 Medical Decision Making - Medical Decision Making 04/26/19 11:28 Ddx: copd exacerbation vs acs p.embolism vs pneumonia vs chf - EKG obtained showed no ST elevation -cbc, cardiac profile, cmp bnp ,duonebs x 4, decadron x 1 treatment ordered -ceftriaxone azithromycin given -cxr -integration lead dr castillo contacted and updated on her condition 04/26/19 12:00 dr. castillo has seen the patient agrees with our plan and recommends cardiology consult 04/26/19 12:48 Pt. feels better, but still using accessory muscles to breathe with O2 saturations in the mid 80's Called Respiratory to put her on Bipap. Pt. admitted to floor. Awaiting available bed. *DC/Admit/Observation/Transfer Diagnosis at time of Disposition: COPD exacerbation - Discharge Dispostion Condition at time of disposition: Stable Decision to Admit order: Yes - Referrals - Patient Instructions - Post Discharge Activity
[2019-04-26] MEDS ORDERED: CEFTRIAXONE 1,000 MG in DEXTROSE 5%-WATER - 50 ML IVPB ONE (11:07)
[2019-04-26] MEDS ORDERED: AZITHROMYCIN IVPB 500 MG in DEXTROSE 5%-WATER - 250 ML IVPB ONE (11:07)
[2019-04-26 11:14] LABS: BASO % 0.7 % (0-2.0); EOS % 2.1 % (0-4.5); HEMATOCRIT 57.3 % (32.4-45.2); HEMOGLOBIN 18.8 GM/dL (10.7-15.3); MCH 29.7 pg (25.7-33.7); MCHC 32.9 g/dl (32.0-36.0); MEAN CELL VOLUME 90.2 fl (80-96); MEAN PLT VOLUME 7.7 fl (7.5-11.1); MONO % 2.8 % (3.8-10.2); NEUT % 84.4 % (42.8-82.8); RBC 6.35 M/mm3 (3.60-5.2); RDW 16.5 % (11.6-15.6); WHITE BLOOD COUNT 8.3 K/mm3 (4.0-10.0)
[2019-04-26] MEDS ORDERED: CEFTRIAXONE 1 GM/50 ML BAG ONE (11:28)
[2019-04-26] MEDS ORDERED: AZITHROMYCIN IVPB 500 MG/250 ML BAG IVPB ONE (11:28)
[2019-04-26 11:34] LABS: PLATELET COUNT 140 K/MM3 (134-434)
[2019-04-26 11:46] LABS: ALBUMIN 4.1 g/dl (3.4-5.0); BLOOD UREA NITROGEN 16.2 mg/dL (7-18); CALCIUM 10.5 mg/dL (8.5-10.1); CREATININE 1.1 mg/dL (0.55-1.3); POTASSIUM 3.6 mmol/L (3.5-5.1); TOT PROT 6.7 g/dl (6.4-8.2)
--- NOTE | 2019-04-26 11:51 | PDOC ---
Documentation entered by Jakob Edwards SCRIBE, acting as scribe for Sole Lion MD. Sole Lion MD: This documentation has been prepared by the Jerry marx Elijah, SCRIBE, under my direction and personally reviewed by me in its entirety. I confirm that the documentation accurately reflects all work, treatment, procedures, and medical decision making performed by me. Attending Attestation - Resident Resident Name: SamDavid - ED Attending Attestation I have performed the following: I have examined & evaluated the patient, The case was reviewed & discussed with the resident, I agree w/resident's findings & plan, Exceptions are as noted - HPI HPI: 04/26/19 11:21 Patient is a 74 year old female with a significant past medical history of bladder cancer, HTN, coronary disease, and COPD who presents to the ED via EMS with x3 days of worsening SOB. As per patients family member at bedside, patient SOB has been made worse with walking. Patient was seen by her PCP today and was brought into the ED afterward with a nebulizer. Patient also associates some productive cough of whitish/yellow sputum and nausea. Denies CP, Fever, and Vomiting. Allergies: NKDA Social History: Tobacco Use PCP: Dr. Gutiérrez - Physicial Exam PE: GENERAL: Awake, alert, and fully oriented, +moderate respiratory distress HEAD: No signs of trauma EYES: PERRLA, EOMI, sclera anicteric, conjunctiva clear ENT: Auricles normal inspection, hearing grossly normal, nares patent, oropharynx clear without exudates. Moist mucosa NECK: Normal ROM, supple, no lymphadenopathy, JVD, or masses LUNGS: Tachypneic, with dec air entry B/L, diffuse exp wheezes. Speaking 1-2 words at a time HEART: Regular rate and rhythm, normal S1 and S2, no murmurs, rubs or gallops ABDOMEN: Soft, nontender, normoactive bowel sounds. No guarding, no rebound. No masses EXTREMITIES: Normal range of motion, no edema. No clubbing or cyanosis. No cords, erythema, or tenderness NEUROLOGICAL: Cranial nerves II through XII grossly intact. Normal speech. Motor and sensation intact SKIN: Warm, dry, normal turgor, no rashes or lesions noted. - Medical Decision Making Pt presents with resp distress, dec air entry B/L. +Recent increase in sputum output. Will treat with nebs, steroids, and abx. Will likely require BiPAP for work of breathing, as she is only speaking 1-2 word sentences at present. Will plan for admission.
--- NOTE | 2019-04-26 12:53 | PN ---
Progress Note (short form) - Note Progress Note: PULMONARY CONSULTATION DICTATED 04/26/19 IMP ACUTE ON CHRONIC HYPOXEMIC/HYPERCAPNEIC RESPIRATORY FAILURE COPD WITH ACUTE EXACERBATION ASHD S/P NH H/O BLADDER CA THORACIC AND ABDOMINAL AORTIC ANEURYSM SECONDARY ERYTHROCYTOSIS TOBACCO ABUSE PLAN INHALED BRONCHODILATORS O2 MEDROL ABX ABG CONSIDER PHLEBOTOMY CHEST AND ABD CT MONITOR LYTES,H+H DR LORD Problem List - Problems (1) Acute on chronic respiratory failure with hypoxia and hypercapnia Code(s): J96.21 - ACUTE AND CHRONIC RESPIRATORY FAILURE WITH HYPOXIA; J96.22 - ACUTE AND CHRONIC RESPIRATORY FAILURE WITH HYPERCAPNIA (2) COPD exacerbation Code(s): J44.1 - CHRONIC OBSTRUCTIVE PULMONARY DISEASE W (ACUTE) EXACERBATION (3) ASHD (arteriosclerotic heart disease) Code(s): I25.10 - ATHSCL HEART DISEASE OF [place] CORONARY ARTERY W/O ANG PCTRS (4) Acute on chronic respiratory failure with hypercapnia Code(s): J96.22 - ACUTE AND CHRONIC RESPIRATORY FAILURE WITH HYPERCAPNIA (5) Anxiety Code(s): F41.9 - ANXIETY DISORDER, UNSPECIFIED (6) Bladder cancer Code(s): C67.9 - MALIGNANT NEOPLASM OF BLADDER, UNSPECIFIED Qualifiers: Bladder location: unspecified site Qualified Code(s): C67.9 - Malignant neoplasm of bladder, unspecified (7) CAD (coronary artery disease) Code(s): I25.10 - ATHSCL HEART DISEASE OF [place] CORONARY ARTERY W/O ANG PCTRS (8) Tobacco abuse Code(s): Z72.0 - TOBACCO USE (9) Erythrocytosis Code(s): D75.1 - SECONDARY POLYCYTHEMIA
[2019-04-26] MEDS ORDERED: methylPREDNISolone NA SUCC 40 MG/1 ML VIAL IVPUSH SCH (13:00)
[2019-04-26] MEDS ORDERED: ALBUTEROL SO4 0.083% IH SOL 2.5 MG/3 ML VIAL.NEB. NEB PRN (13:01)
--- NOTE | 2019-04-26 14:41 | EKG ---
Test Reason : Blood Pressure : / mmHG Vent. Rate : 076 BPM Atrial Rate : 076 BPM P-R Int : 132 ms QRS Dur : 094 ms QT Int : 394 ms P-R-T Axes : 087 -35 112 degrees QTc Int : 443 ms POOR DATA QUALITY, INTERPRETATION MAY BE ADVERSELY AFFECTED NORMAL SINUS RHYTHM LEFT AXIS DEVIATION LEFT VENTRICULAR HYPERTROPHY WITH REPOLARIZATION ABNORMALITY INFERIOR INFARCT (CITED ON OR BEFORE 19-APR-2018) ABNORMAL ECG Confirmed by Johnathan Bobo MD ([id number]) on 04/26/2019 2:40:49 PM Referred By: Confirmed By:Johnathan Bobo MD
--- NOTE | 2019-04-26 14:49 | CONS ---
PULMONARY CONSULTATION DATE OF CONSULTATION: 04/26/2019 REFERRING PHYSICIAN: Khanh Gutiérrez MD HISTORY: The patient is a 74-year-old white female well known to me from previous hospitalizations as well as office follow up with extensive past medical history that includes end-stage COPD with chronic hypoxemic, hypercapnic respiratory failure maintained on home oxygen therapy, bladder CA status post BCG treatments, hypertension, ASHD status post [place], status post stents, prediabetes, longstanding history of tobacco use, smoking. Admitted to [facility] with the complaint of 1-day history of increasing shortness of breath, dyspnea on exertion, and cough productive of yellow sputum. The patient denies any complaints of chest pain, nausea, vomiting, or diaphoresis. Denies any fevers or chills. Patient presented to D's office today, and EMS was called, and the patient was administered 2 DuoNebs and Decadron and transferred to the ER for further therapy. Patient denies any hemoptysis. Denies any chest pain, nausea, vomiting, or diaphoresis. PAST MEDICAL HISTORY: Again, includes advanced end-stage COPD with chronic hypoxemic, hypercapnic respiratory failure maintained on home oxygen therapy, history of bladder CA status post BCG treatments, ASHD status post [place], status post stents, history of thoracic and abdominal aortic aneurysm being followed, prediabetes, and hypertension. REVIEW OF SYSTEMS: Positive orthopnea, positive dyspnea, positive cough, positive wheezing. No chest pain, no palpitations, no nausea, no vomiting, no hemoptysis. SOCIAL HISTORY: Longstanding history of tobacco use smoking many years. Currently still smoking approximately 1/2 pack every few days. CURRENT MEDICATIONS: Include Decadron. PHYSICAL EXAMINATION: General: The patient is a chronically ill-appearing white female thin, well developed, dyspneic. Vital Signs: She is currently afebrile. Blood pressure is 116/70, respiratory rate is 20-24, O2 saturation is 100% on nasal cannula. HEENT: Normocephalic, atraumatic. Neck: Supple. Heart: Tachycardic. S1, S2. Chest: Bilateral wheezes. Abdomen: Soft. Bowel sounds are positive. Extremities: No cyanosis or edema. LABORATORIES: WBC is 8.3, hemoglobin 18.8, hematocrit 57.3 with a platelet count of 140,000. Blood gas is pending. Chemistries: BUN 16, creatinine 1.1, BNP is 956. Chest x-ray: Normal cardiac size with central changes. No acute infiltrates or effusions. IMPRESSION: 1. Acute on chronic hypoxemic, hypercapnic respiratory failure secondary to advanced chronic obstructive pulmonary disease with acute exacerbation. 2. Arteriosclerotic heart disease status post myocardial infarction. 3. History of bladder cancer status post Bacillus Calmette-Steven. 4. Thoracic intra-abdominal aortic aneurysm. 5. Secondary erythrocytosis. 6. Tobacco abuse. PLAN: Inhaled bronchodilators. Supplemental O2. Solu-Medrol. Antibiotics. Check arterial blood gas. Consider phlebotomy. Obtain CT scan of the chest and abdomen. Monitor electrolytes and hemoglobin and hematocrit. ELAINE LORD M.D. [id number]
[2019-04-26 14:51] LABS: ARTERIAL BLD GAS O2 SATURATION 89.2 % (95-98); ARTERIAL BLOOD GAS BASE EXCESS 11.4 meq/l (-2-2); ARTERIAL BLOOD GAS PCO2 62.7 mmHg (35-45); ARTERIAL BLOOD GAS PO2 57.7 mmHg (80-105); ARTERIAL BLOOD GAS pH 7.41 (7.35-7.45); CARBOXYHEMOGLOBIN 2.6 % (0-2)
[2019-04-26 14:53] LABS: ALLENS TEST POSITIVE
--- NOTE | 2019-04-26 15:46 | HP ---
Admitting History and Physical - Primary Care Physician PCP: Khanh Gutiérrez - Admission Chief Complaint: Worsening SOB History of Present Illness: Patient is a 74 y/o female with past medical history of Bladder CA, HTN, CAD, COPD. Patient presented to ER from PCP office for worsening SOB. Patient states that for the past week she has been experiencing worsening SOB and has been using her home O2 all day and is unable to have periods without it. Patient states having a productive cough with white/yellow sputum as well. In ER was noted with O2 sat 85% and placed on Bipap. History Source: Patient Limitations to Obtaining History: No Limitations - Past Medical History Cardiovascular: Yes: CAD, Hyperlipdemia Pulmonary: Yes: COPD Renal/: Yes: Renal Inusuff, Other (bladder cancer) Heme/Onc: Yes: Other (bladder cancer) - Smoking History Smoking history: Current every day smoker Have you smoked in the past 12 months: Yes Aproximately how many cigarettes per day: 40 - Alcohol/Substance Use Hx Alcohol Use: No - Social History Usual Living Arrangement: Yes: Alone ADL: Independent History of Recent Travel: No Home Medications - Allergies Allergies/Adverse Reactions: Allergies Allergy/AdvReac Type Severity Reaction Status Date / Time No Known Drug Allergies Allergy Verified 04/26/19 10:24 - Home Medications Home Medications: Ambulatory Orders Amlodipine Besylate 10 mg PO DAILY 05/08/16 Losartan Potassium 100 mg PO DAILY 05/08/16 Clopidogrel Bisulfate [Plavix -] 75 mg PO DAILY #0 05/12/16 Atorvastatin Ca [Lipitor] 80 mg PO HS tablet 11/03/16 Lactobacillus Acidophilus [Bacid -] 1 tab PO BID #60 tab 11/03/16 Albuterol 2.5/Ipratropium 0.5 [Duoneb -] 1 amp NEB RQID amp 04/26/18 Alprazolam [Xanax] 0.25 mg PO BID #20 tablet MDD 2 04/26/18 Tiotropium Br/Olodaterol HCl [Stiolto Respimat Inhal [place]] 2 puff IH DAILY Tiotropium [place] [Spiriva] 18 mcg IH DAILY 04/26/19 Review of Systems - Review of Systems Constitutional: reports: Lethargy, Weakness Eyes: reports: No Symptoms HENT: reports: No Symptoms Neck: reports: No Symptoms Cardiovascular: reports: No Symptoms Respiratory: reports: Cough, SOB, SOB on Exertion Gastrointestinal: reports: No Symptoms Genitourinary: reports: No Symptoms Breasts: reports: No Symptoms Reported Musculoskeletal: reports: No Symptoms Integumentary: reports: No Symptoms Neurological: reports: Dizziness Endocrine: reports: No Symptoms Hematology/Lymphatic: reports: No Symptoms Psychiatric: reports: No Symptoms Physical Examination Vital Signs: Vital Signs Temperature 97.8 F 04/26/19 10:30 Pulse Rate 76 04/26/19 14:00 Respiratory Rate 24 H 04/26/19 14:00 Blood Pressure 117/56 L 04/26/19 14:00 O2 Sat by Pulse Oximetry (%) 88 L 04/26/19 15:22 Constitutional: Yes: No Distress, Calm, Cachectic Eyes: Yes: Conjunctiva Clear HENT: Yes: Atraumatic Neck: Yes: Supple Cardiovascular: Yes: Regular Rate and Rhythm Respiratory: Yes: On BiPap, Tachypnea, Wheezes Gastrointestinal: Yes: Normal Bowel Sounds, Soft Musculoskeletal: Yes: Muscle Weakness Extremities: Yes: WNL Edema: No Neurological: Yes: Alert, Oriented Psychiatric: Yes: Alert, Oriented Labs: CBC, BMP 04/26/19 10:54 04/26/19 10:54 Imaging - Results Chest X-ray: Report Reviewed Problem List - Problems (1) Acute on chronic respiratory failure with hypoxia and hypercapnia Assessment/Plan: -Pulm on board -Bronchodilators -Solumedrol -Bipap -Keep SpO2 >90% -CXR shows some minimal atelectatic chnges at the bases -Azithromycin -ABGs -Stiolto Code(s): J96.21 - ACUTE AND CHRONIC RESPIRATORY FAILURE WITH HYPOXIA; J96.22 - ACUTE AND CHRONIC RESPIRATORY FAILURE WITH HYPERCAPNIA (2) COPD exacerbation Assessment/Plan: -Pulm on board -Bronchodilators -Solumedrol -Bipap -Keep SpO2 >90% -CXR shows some minimal atelectatic chnges at the bases -Azithromycin -ABGs -Stiolto Code(s): J44.1 - CHRONIC OBSTRUCTIVE PULMONARY DISEASE W (ACUTE) EXACERBATION (3) CAD (coronary artery disease) Assessment/Plan: -Aspirin and Plavix on alternating days Code(s): I25.10 - ATHSCL HEART DISEASE OF [place] CORONARY ARTERY W/O ANG PCTRS (4) CKD (chronic kidney disease) Assessment/Plan: -BUN/Cr 16.2/1.1 -monitor renal function daily -if become elevated consider renal consult Code(s): N18.9 - CHRONIC KIDNEY DISEASE, UNSPECIFIED (5) HTN (hypertension) Assessment/Plan: -Norvasc and Losartan -low Na diet Code(s): I10 - ESSENTIAL (PRIMARY) HYPERTENSION Assessment/Plan see problem list SCDs
[2019-04-26] MEDS: ASPIRIN COATED 81 MG TABLET.EC PO SCH (18:09)
[2019-04-26] MEDS ORDERED: methylPREDNISolone NA SUCC 40 MG/1 ML VIAL ONE (19:22)
[2019-04-26] MEDS: methylPREDNISolone NA SUCC 40 MG/1 ML VIAL IVPUSH SCH ×2 (19:26→23:50)
[2019-04-26] MEDS ORDERED: ALBUTEROL SO4 2.5/IPRATROPIUM 0.5 INH SOL 3 ML VIAL.NEB. NEB SCH (20:00)
[2019-04-27] MEDS ORDERED: ATORVASTATIN CA 80 MG TABLET (FP) ONE (01:29)
[2019-04-27] MEDS ORDERED: methylPREDNISolone NA SUCC 40 MG/1 ML VIAL ONE ×2 (01:29→08:41)
[2019-04-27] MEDS: ATORVASTATIN CA 80 MG TABLET (FP) PO SCH ×2 (01:53→21:29)
[2019-04-27 06:58] LABS: ARTERIAL BLOOD GAS PO2 63 mmHg (80-105); ARTERIAL BLOOD GAS pH 7.36 (7.35-7.45)
[2019-04-27 06:59] LABS: ALLENS TEST POSITIVE; ARTERIAL BLD GAS O2 SATURATION 89.9 % (95-98); ARTERIAL BLOOD GAS BASE EXCESS 10.3 meq/l (-2-2)
[2019-04-27 07:02] LABS: ARTERIAL BLOOD GAS PCO2 71.3 mmHg (35-45)
[2019-04-27 07:30] LABS: BASO % 0.3 % (0-2.0); HEMATOCRIT 50.9 % (32.4-45.2); HEMOGLOBIN 17.1 GM/dL (10.7-15.3); LYMPH % 4.4 % (8-40); MCH 29.7 pg (25.7-33.7); MCHC 33.5 g/dl (32.0-36.0); MEAN CELL VOLUME 88.6 fl (80-96); MEAN PLT VOLUME 8.2 fl (7.5-11.1); MONO % 0.8 % (3.8-10.2); NEUT % 94.5 % (42.8-82.8); PLATELET COUNT 136 K/MM3 (134-434); RBC 5.74 M/mm3 (3.60-5.2); RDW 16.3 % (11.6-15.6); WHITE BLOOD COUNT 8.4 K/mm3 (4.0-10.0)
[2019-04-27] MEDS: methylPREDNISolone NA SUCC 40 MG/1 ML VIAL IVPUSH SCH ×4 (07:37→21:30)
[2019-04-27 08:03] LABS: ALBUMIN 3.5 g/dl (3.4-5.0); BILIRUBIN,TOTAL 0.8 mg/dL (0.2-1); BLOOD UREA NITROGEN 25.9 mg/dL (7-18); CALCIUM 9.4 mg/dL (8.5-10.1); CREATININE 1.2 mg/dL (0.55-1.3); N-TERMINAL BNP 1205.9 pg/ml (5-125); PHOSPHOROUS 4.5 mg/dL (2.5-4.9); POTASSIUM 3.6 mmol/L (3.5-5.1); TOT PROT 5.9 g/dl (6.4-8.2)
--- NOTE | 2019-04-27 08:28 | PN ---
Progress Note, Physician - Current Medication List Current Medications: Active Medications Albuterol Sulfate (Ventolin 0.083% Nebulizer Soln -) 1 amp NEB Q4H PRN PRN Reason: SHORT OF BREATH/WHEEZING Albuterol/Ipratropium (Duoneb -) 1 amp NEB RQID [facility] Last Admin: 04/26/19 20:46 Dose: Not Given Amlodipine Besylate (Norvasc -) 10 mg PO DAILY [facility] Aspirin (Ecotrin -) 81 mg PO Q2D [facility] Last Admin: 04/26/19 18:09 Dose: 81 mg Atorvastatin Calcium (Lipitor -) 80 mg PO HS [facility] Last Admin: 04/27/19 01:53 Dose: Not Given Clopidogrel Bisulfate (Plavix -) 75 mg PO Q2D [facility] Azithromycin (Zithromax 500mg Ivpb (Pre-Docked)) 500 mg in 250 mls @ 250 mls/ hr IVPB DAILY [facility] Losartan Potassium (Cozaar -) 100 mg PO DAILY [facility] Methylprednisolone Sodium Succinate (Solu-Medrol -) 40 mg IVPUSH Q6H-IV [facility] Last Admin: 04/27/19 07:37 Dose: 40 mg Tiotropium [place]/Olodaterol (Stiolto Respimat Inhal [place]) 2 puff IH DAILY [facility] - Objective Vital Signs: Vital Signs Temperature 98.5 F 04/26/19 17:27 Pulse Rate 78 04/27/19 07:25 Respiratory Rate 19 04/27/19 07:21 Blood Pressure 134/54 L 04/27/19 07:21 O2 Sat by Pulse Oximetry (%) 95 04/27/19 07:25 Cardiovascular: Yes: S1, S2 Respiratory: Yes: On Nasal O2, Rhonchi Gastrointestinal: Yes: Normal Bowel Sounds, Soft Labs: CBC, BMP 04/27/19 06:45 04/27/19 06:45 Assessment/Plan - Problems (1) Acute on chronic respiratory failure with hypoxia and hypercapnia Assessment/Plan: -Pulm on board -Bronchodilators -Solumedrol -Bipap -Keep SpO2 >90% -CXR shows some minimal atelectatic chnges at the bases -Azithromycin -ABGs -Stiolto Code(s): J96.21 - ACUTE AND CHRONIC RESPIRATORY FAILURE WITH HYPOXIA; J96.22 - ACUTE AND CHRONIC RESPIRATORY FAILURE WITH HYPERCAPNIA (2) COPD exacerbation Assessment/Plan: -Pulm on board -Bronchodilators -Solumedrol -Bipap -Keep SpO2 >90% -CXR shows some minimal atelectatic chnges at the bases -Azithromycin -ABGs -Stiolto Code(s): J44.1 - CHRONIC OBSTRUCTIVE PULMONARY DISEASE W (ACUTE) EXACERBATION (3) CAD (coronary artery disease) Assessment/Plan: -Aspirin and Plavix on alternating days Code(s): I25.10 - ATHSCL HEART DISEASE OF [place] CORONARY ARTERY W/O ANG PCTRS (4) CKD (chronic kidney disease) Assessment/Plan: -BUN/Cr 16.2/1.1 -monitor renal function daily -if become elevated consider renal consult Code(s): N18.9 - CHRONIC KIDNEY DISEASE, UNSPECIFIED (5) HTN (hypertension) Assessment/Plan: -Norvasc and Losartan -low Na diet Code(s): I10 - ESSENTIAL (PRIMARY) HYPERTENSION
[2019-04-27] MEDS ORDERED: PT OWN MED DRAWER 7, Y5N ONE (08:39)
[2019-04-27] MEDS ORDERED: AZITHROMYCIN IVPB 500 MG/250 ML BAG IVPB ONE (08:40)
[2019-04-27] MEDS ORDERED: IPRATROPIUM BR 0.02% 0.5 MG/2.5 ML VIAL.NEB. NEB ONE (08:42)
[2019-04-27] MEDS ORDERED: ALBUTEROL SO4 2.5/IPRATROPIUM 0.5 INH SOL 3 ML VIAL.NEB. NEB ONE ×2 (08:45→12:03)
[2019-04-27] MEDS: ALBUTEROL SO4 2.5/IPRATROPIUM 0.5 INH SOL 3 ML VIAL.NEB. NEB SCH ×4 (08:50→21:25)
[2019-04-27] MEDS ORDERED: TIOTROPIUM/OLODATEROL HCL (STIOLTO) 4 GM INHALER IH SCH (10:00)
[2019-04-27] MEDS ORDERED: CLOPIDOGREL BISULFATE 75 MG TABLET (FP) PO SCH (10:00)
[2019-04-27] MEDS ORDERED: PATIENT'S OWN MEDICATION (NON-FORMULARY) (Losartan Potassium [Losartan Potassium] 100 MG) PO SCH (10:00)
--- NOTE | 2019-04-27 10:11 | CON.CARD ---
Cardiology Consult (text) - Consultation Consultation Note: Consultation Note: Chief Complaint: sob, cough History of Present Illness: 74 yo female here for sob, cough. Complains of sob, cough, yellow sputum for last few days. No dizzy, loc, pnd, orthopnea, le edema. Sees dr wynne for cardio. Had similar presentation about a year ago with COPD exacerbation, has chronic chest tightness and dyspnea on exertion similar for years. Last cath 2013 showed patent stents, mildly depressed EF, per patient has felt similar since then. In the past was on trial of lasix which did not improve symptoms. BNP here is elevated. PMH: anxiety disorder +cigs--active, not interested in cessation HTN HPL - Past Medical History ...: No - Alcohol/Substance Use Hx Alcohol Use: No - Smoking History Smoking history: Current every day smoker Have you smoked in the past 12 months: Yes Aproximately how many cigarettes per day: 20 Allergies Allergy/AdvReac Type Severity Reaction Status Date / Time No Known Drug Allergies Allergy Verified 04/26/19 10:24 Home Medications Medication Instructions Recorded Amlodipine Besylate 10 mg PO DAILY 05/08/16 Losartan Potassium 100 mg PO DAILY 05/08/16 Clopidogrel Bisulfate [Plavix -] 75 mg PO DAILY #0 05/12/16 Atorvastatin Ca [Lipitor] 80 mg PO HS tablet 11/03/16 Lactobacillus Acidophilus [Bacid -] 1 tab PO BID #60 tab 11/03/16 Albuterol 2.5/Ipratropium 0.5 1 amp NEB RQID amp 04/26/18 [Duoneb -] Alprazolam [Xanax] 0.25 mg PO BID #20 tablet MDD 2 04/26/18 Tiotropium Br/Olodaterol HCl 2 puff IH DAILY 04/26/19 [Stiolto Respimat Inhal [place]] Tiotropium [place] [Spiriva] 18 mcg IH DAILY 04/26/19 Family Disease History - Family Disease History Family History: Denies (no cmp) Review of Systems - Review of Systems Constitutional: denies: Chills, Fever Eyes: denies: Eye Pain HENT: denies: Nasal Congestion Neck: denies: Stiffness Cardiovascular: denies: Palpitations Respiratory: denies: Orthopnea, PND Gastrointestinal: denies: Diarrhea, Rectal Bleeding Genitourinary: denies: Burning, Hematuria Musculoskeletal: denies: Muscle Pain Integumentary: denies: Rash Neurological: denies: Numbness, Seizure, Syncope Endocrine: denies: Excessive Sweating Hematology/Lymphatic: denies: Excessive Bleeding Vital Signs: Vital Signs Period Temp Pulse Resp BP Sys/Lock Pulse Ox Last 24 Hr 97.8 F-98.5 F 70-112 19-32 110-152/51-83 85-100 Constitutional: Yes: Well Nourished, No Distress Eyes: No: Sclera Icterus HENT: No: Nasal Congestion Neck: No: Decreased ROM Respiratory: Yes: CTA Bilaterally, scattered rhonchi, wheezes. No: Accessory Muscle Use, Rales Gastrointestinal: Yes: Normal Bowel Sounds. No: Distention, Hepatomegaly, Palpable Mass, Tenderness Cardiovascular: Yes: Regular Rate and Rhythm JVD: No Carotid Bruit: No PMI: Non-Displaced Heart Sounds: Yes: S1, S2. No: Gallop Murmur: No: Systolic Murmur, Diastolic Murmur Extremities: No: Cold, Cyanosis Edema: No Peripheral Pulses: 2+ Left Carotid, 2+ Right Carotid, 2+ Left Doralis Pedis, 2+ Right Dorsalis Pedis Integumentary: No: Jaundice Neurological: Yes: Alert, Oriented (x3) Psychiatric: No: Agitated Laboratory Last Values WBC 8.4 K/mm3 (4.0-10.0) 04/27/19 06:45 RBC 5.74 M/mm3 (3.60-5.2) H 04/27/19 06:45 Hgb 17.1 GM/dL (10.7-15.3) H 04/27/19 06:45 Hct 50.9 % (32.4-45.2) H 04/27/19 06:45 MCV 88.6 fl (80-96) 04/27/19 06:45 MCH 29.7 pg (25.7-33.7) 04/27/19 06:45 MCHC 33.5 g/dl (32.0-36.0) 04/27/19 06:45 RDW 16.3 % (11.6-15.6) H 04/27/19 06:45 Plt Count 136 K/MM3 (134-434) 04/27/19 06:45 MPV 8.2 fl (7.5-11.1) 04/27/19 06:45 Absolute Neuts (auto) 8.0 K/mm3 (1.5-8.0) 04/27/19 06:45 Neutrophils % 94.5 % (42.8-82.8) H 04/27/19 06:45 Lymphocytes % 4.4 % (8-40) L D 04/27/19 06:45 Monocytes % 0.8 % (3.8-10.2) L 04/27/19 06:45 Eosinophils % 0.0 % (0-4.5) D 04/27/19 06:45 Basophils % 0.3 % (0-2.0) 04/27/19 06:45 Nucleated RBC % 0 % (0-0) 04/27/19 06:45 Anticoagulation Therapy No Result Required. 04/27/19 06:21 Puncture Site Right radial 04/27/19 06:21 ABG pH 7.36 (7.35-7.45) 04/27/19 06:21 ABG pCO2 at Pt Temp 71.3 mmHg (35-45) H* 04/27/19 06:21 ABG pO2 at Pt Temp 63 mmHg (80-105) L 04/27/19 06:21 ABG HCO3 39.6 mmol/L (22-27) H 04/27/19 06:21 ABG O2 Sat (Measured) 89.9 % (95-98) L 04/27/19 06:21 ABG O2 Content 21.9 % vol (15-22) 04/27/19 06:21 ABG Base Excess 10.3 meq/l (-2-2) H 04/27/19 06:21 Michael Test Positive 04/27/19 06:21 Carboxyhemoglobin 2.6 % (0-2) H 04/26/19 14:27 Methemoglobin 0.3 % (0-2) 04/26/19 14:27 O2 Delivery Device N/c 04/27/19 06:21 Oxygen Flow Rate No Result Required. 04/27/19 06:21 Vent Mode No Result Required. 04/27/19 06:21 Vent Rate No Result Required. 04/27/19 06:21 Mechanical Rate No Result Required. 04/27/19 06:21 Pressure Support Vent No Result Required. 04/27/19 06:21 Sodium 141 mmol/L (136-145) 04/27/19 06:45 Potassium 3.6 mmol/L (3.5-5.1) 04/27/19 06:45 Chloride 99 mmol/L (98-107) 04/27/19 06:45 Carbon Dioxide 40 mmol/L (21-32) H 04/27/19 06:45 Anion Gap 2 MMOL/L (8-16) L 04/27/19 06:45 BUN 25.9 mg/dL (7-18) H 04/27/19 06:45 Creatinine 1.2 mg/dL (0.55-1.3) 04/27/19 06:45 Est GFR (CKD-EPI)AfAm 51.92 04/27/19 06:45 Est GFR (CKD-EPI)NonAf 44.80 04/27/19 06:45 Random Glucose 152 mg/dL (74-106) H 04/27/19 06:45 Calcium 9.4 mg/dL (8.5-10.1) 04/27/19 06:45 Phosphorus 4.5 mg/dL (2.5-4.9) 04/27/19 06:45 Magnesium 1.9 mg/dL (1.8-2.4) 04/26/19 20:30 Total Bilirubin 0.8 mg/dL (0.2-1) 04/27/19 06:45 AST 14 U/L (15-37) L 04/27/19 06:45 ALT 24 U/L (13-61) 04/27/19 06:45 Alkaline Phosphatase 57 U/L (45-117) 04/27/19 06:45 Creatine Kinase 85 U/L (26-192) 04/26/19 10:54 Troponin I 0.03 ng/ml (0.00-0.05) 04/27/19 06:45 B-Natriuretic Peptide 1205.9 pg/ml (5-125) H 04/27/19 06:45 Total Protein 5.9 g/dl (6.4-8.2) L 04/27/19 06:45 Albumin 3.5 g/dl (3.4-5.0) 04/27/19 06:45 Triglycerides 70 mg/dL (0-150) 04/27/19 06:45 Cholesterol 150 mg/dL (50-200) 04/27/19 06:45 Total LDL Cholesterol 59 mg/dL (5-100) 04/27/19 06:45 HDL Cholesterol 75 mg/dL (40-60) H 04/27/19 06:45 TSH 0.18 uIU/ml (0.358-3.74) L 04/27/19 06:45 cxr: no chf ecg: sr, LVH with repol, no ischemic changes echo 03/2016: tds, mild dec lvef, nl rv, no sig valve path tele: sr Assessment/Plan sob, cough, copd: -getting abx, iv steroids for copd, pulm following - elevated BNP however presentation less consistent with CHF - will check echo chronic CAD, remote pci, w/o angina: -mult prior stents (prox and mid LAD, entire RCA and RPDA) all patent on cath 2013 -no angina (chronic sob with chest pressure is copd sx--present prior to cath and unchanged since) -no signs acs -cont aspirin, plavix, statin, arb chronic diast chf -borderline depressed LVEF (45% on v-gram, 50% echo 2015) with moderately incr' d LVEDP at cath (24) -never clinical chf, no sob response to trial of lasix in past -current exam--clinically euvolemic -no diuretics needed HTN: -known bp lability from anxiety at times -reasonably controlled here HPL: -cont home statin +cigs: -previously counselled on cessation many times, not interested in quitting descending thoracic aortic aneurysm: -mild, stable size on 12/2017 ct chest -cont bp control
--- NOTE | 2019-04-27 10:20 | EKG ---
Test Reason : Blood Pressure : / mmHG Vent. Rate : 075 BPM Atrial Rate : 075 BPM P-R Int : 188 ms QRS Dur : 120 ms QT Int : 406 ms P-R-T Axes : -04 -23 165 degrees QTc Int : 453 ms POOR DATA QUALITY, INTERPRETATION MAY BE ADVERSELY AFFECTED SINUS RHYTHM WITH FUSION COMPLEXES CANNOT RULE OUT INFERIOR INFARCT (CITED ON OR BEFORE 19-APR-2018) ANTERIOR INFARCT , AGE UNDETERMINED T WAVE ABNORMALITY, CONSIDER LATERAL ISCHEMIA ABNORMAL ECG WHEN COMPARED WITH ECG OF 26-APR-2019 10:31, FUSION COMPLEXES ARE NOW PRESENT NONSPECIFIC T WAVE ABNORMALITY NOW EVIDENT IN INFERIOR LEADS Confirmed by TRISTON SINGH, NISHA ([id number]) on 04/27/2019 10:19:37 AM Referred By: Confirmed By:NISHA GOLDSTEIN MD
--- NOTE | 2019-04-27 10:59 | PN ---
Progress Note, Physician History of Present Illness: PULMONARY ALERT.LESS DYSPNEIC,+ COUGH,-CP - Current Medication List Current Medications: Active Medications Albuterol Sulfate (Ventolin 0.083% Nebulizer Soln -) 1 amp NEB Q4H PRN PRN Reason: SHORT OF BREATH/WHEEZING Albuterol/Ipratropium (Duoneb -) 1 amp NEB RQID COUNTS INCLUDE 234 BEDS AT THE [facility] Last Admin: 04/27/19 08:50 Dose: 1 amp Amlodipine Besylate (Norvasc -) 10 mg PO DAILY COUNTS INCLUDE 234 BEDS AT THE [facility] Aspirin (Ecotrin -) 81 mg PO Q2D COUNTS INCLUDE 234 BEDS AT THE [facility] Last Admin: 04/26/19 18:09 Dose: 81 mg Atorvastatin Calcium (Lipitor -) 80 mg PO HS COUNTS INCLUDE 234 BEDS AT THE [facility] Last Admin: 04/27/19 01:53 Dose: Not Given Clopidogrel Bisulfate (Plavix -) 75 mg PO Q2D COUNTS INCLUDE 234 BEDS AT THE [facility] Azithromycin (Zithromax 500mg Ivpb (Pre-Docked)) 500 mg in 250 mls @ 250 mls/ hr IVPB DAILY COUNTS INCLUDE 234 BEDS AT THE [facility] Losartan Potassium (Cozaar -) 100 mg PO DAILY COUNTS INCLUDE 234 BEDS AT THE [facility] Methylprednisolone Sodium Succinate (Solu-Medrol -) 40 mg IVPUSH Q6H-IV [facility] Last Admin: 04/27/19 07:37 Dose: 40 mg Tiotropium [place]/Olodaterol (Stiolto Respimat Inhal [place]) 2 puff IH DAILY COUNTS INCLUDE 234 BEDS AT THE [facility] - Objective Vital Signs: Vital Signs Temperature 98.5 F 04/26/19 17:27 Pulse Rate 78 04/27/19 07:25 Respiratory Rate 19 04/27/19 07:21 Blood Pressure 134/54 L 04/27/19 07:21 O2 Sat by Pulse Oximetry (%) 93 L 04/27/19 08:29 Constitutional: Yes: Calm, Thin Eyes: Yes: WNL HENT: Yes: WNL Neck: Yes: WNL Cardiovascular: Yes: Regular Rate and Rhythm, S1, S2 Respiratory: Yes: Wheezes (SCATTERED MAREN WHEEZES) Gastrointestinal: Yes: Normal Bowel Sounds, Soft Extremities: Yes: WNL Edema: No Labs: CBC, BMP 04/27/19 06:45 04/27/19 06:45 Laboratory Tests 04/27/19 06:21 ABG pH 7.36 ABG pCO2 at Pt Temp 71.3 H* ABG pO2 at Pt Temp 63 L ABG HCO3 39.6 H ABG O2 Sat (Measured) 89.9 L Problem List - Problems (1) Acute on chronic respiratory failure with hypoxia and hypercapnia Code(s): J96.21 - ACUTE AND CHRONIC RESPIRATORY FAILURE WITH HYPOXIA; J96.22 - ACUTE AND CHRONIC RESPIRATORY FAILURE WITH HYPERCAPNIA (2) COPD exacerbation Code(s): J44.1 - CHRONIC OBSTRUCTIVE PULMONARY DISEASE W (ACUTE) EXACERBATION (3) ASHD (arteriosclerotic heart disease) Code(s): I25.10 - ATHSCL HEART DISEASE OF [place] CORONARY ARTERY W/O ANG PCTRS (4) Acute on chronic respiratory failure with hypercapnia Code(s): J96.22 - ACUTE AND CHRONIC RESPIRATORY FAILURE WITH HYPERCAPNIA (5) Anxiety Code(s): F41.9 - ANXIETY DISORDER, UNSPECIFIED (6) Bladder cancer Code(s): C67.9 - MALIGNANT NEOPLASM OF BLADDER, UNSPECIFIED Qualifiers: Bladder location: unspecified site Qualified Code(s): C67.9 - Malignant neoplasm of bladder, unspecified (7) CAD (coronary artery disease) Code(s): I25.10 - ATHSCL HEART DISEASE OF [place] CORONARY ARTERY W/O ANG PCTRS (8) Tobacco abuse Code(s): Z72.0 - TOBACCO USE (9) Erythrocytosis Code(s): D75.1 - SECONDARY POLYCYTHEMIA Assessment/Plan IMP ACUTE ON CHRONIC HYPOXEMIC/HYPERCAPNEIC RESPIRATORY FAILURE COPD WITH ACUTE EXACERBATION ASHD S/P RI H/O BLADDER CA THORACIC AND ABDOMINAL AORTIC ANEURYSM SECONDARY ERYTHROCYTOSIS TOBACCO ABUSE PLAN INHALED BRONCHODILATORS O2 MEDROL SAME DOSE NIPPV NEEDED ABX F/U ABGs CHEST AND ABD CT MONITOR TIGRE,H+H DR LORD Problem List - Problems (1) Acute on chronic respiratory failure with hypoxia and hypercapnia Code(s): J96.21 - ACUTE AND CHRONIC RESPIRATORY FAILURE WITH HYPOXIA; J96.22 - ACUTE AND CHRONIC RESPIRATORY FAILURE WITH HYPERCAPNIA (2) COPD exacerbation Code(s): J44.1 - CHRONIC OBSTRUCTIVE PULMONARY DISEASE W (ACUTE) EXACERBATION (3) ASHD (arteriosclerotic heart disease) Code(s): I25.10 - ATHSCL HEART DISEASE OF [place] CORONARY ARTERY W/O ANG PCTRS (4) Acute on chronic respiratory failure with hypercapnia Code(s): J96.22 - ACUTE AND CHRONIC RESPIRATORY FAILURE WITH HYPERCAPNIA (5) Anxiety Code(s): F41.9 - ANXIETY DISORDER, UNSPECIFIED (6) Bladder cancer Code(s): C67.9 - MALIGNANT NEOPLASM OF BLADDER, UNSPECIFIED Qualifiers: Bladder location: unspecified site Qualified Code(s): C67.9 - Malignant neoplasm of bladder, unspecified (7) CAD (coronary artery disease) Code(s): I25.10 - ATHSCL HEART DISEASE OF [place] CORONARY ARTERY W/O ANG PCTRS (8) Tobacco abuse Code(s): Z72.0 - TOBACCO USE (9) Erythrocytosis Code(s): D75.1 - SECONDARY POLYCYTHEMIA
[2019-04-27] MEDS: LOSARTAN POTASSIUM 50 MG TABLET (FP) PO SCH (12:05)
[2019-04-27] MEDS: amLODIPine BESYLATE 10 MG TABLET (FP) PO SCH (12:06)
[2019-04-27] MEDS: CLOPIDOGREL BISULFATE 75 MG TABLET (FP) PO SCH (12:06)
[2019-04-27] MEDS: AZITHROMYCIN IVPB 500 MG/250 ML BAG IVPB SCH (12:06)
--- NOTE | 2019-04-27 13:15 | ECHO ---
Name: LIZETT DICK Exam:Adult Echocardiogram Study Date: 04/27/2019 11:19 AM Age: 74 yrs Reason For Study: sob Height: 60 in Weight: 93 lb BSA: 1.3 m2 BP: 130/55 mmHg MMode/2D Measurements & Calculations IVSd: 0.78 cm Ao root diam: 2.9 cm LVIDd: 5.0 cm LA dimension: 3.3 cm LVIDs: 3.5 cm ACS: 1.3 cm LVPWd: 0.76 cm IVSs: 1.2 cm LVPWs: 0.80 cm EDV(Teich): 116.8 ml ESV(Teich): 50.1 ml Doppler Measurements & Calculations MV E max ameya: 74.0 cm/sec Ao V2 max: 131.4 cm/sec MV A max ameya: 88.8 cm/sec Ao max P.9 mmHg MV E/A: 0.83 Ao V2 mean: 96.1 cm/sec Ao mean P.1 mmHg Ao V2 VTI: 27.8 cm MR max ameya: 392.5 cm/sec Med Peak E' Ameya: 3.7 cm/sec MR max P.6 mmHg Med E/e': 19.9 Lat Peak E' Ameya: 4.9 cm/sec Lat E/e': 15.0 Procedure The study was technically difficult with many images being suboptimal in quality. Left Ventricle The left ventricular size, thickness and function are normal. The left ventricle is not well visualiz ed. The left ventricular ejection fraction is normal. E/A reversal consistent with but not diagnostic of poor LV compliance. Regional wall motion abnormalities cannot be excluded due to limited visualization. Right Ventricle The right ventricle is not well visualized. Atria Normal left and right atrial size and function. Mitral Valve There is mild mitral valve thickening. There is no mitral valve stenosis. There is trace to mild mitr al regurgitation. Tricuspid Valve The tricuspid valve is not well visualized. There is no tricuspid stenosis. There was insufficient TR detected to calculate RV systolic pressure. Aortic Valve The aortic valve is normal in structure and function. No hemodynamically significant valvular aortic stenosis. No aortic regurgitation is present. Pulmonic Valve The pulmonic valve is not well visualized. Great Vessels The aortic root is normal size. Pericardium/Pleura There is no pericardial effusion. Interpretation Summary The study was technically difficult with many images being suboptimal in quality. The left ventricular size, thickness and function are normal The left ventricle is not well visualized. The left ventricular ejection fraction is normal. Regional wall motion abnormalities cannot be excluded due to limited visualization. E/A reversal consistent with but not diagnostic of poor LV compliance There is trace to mild mitral regurgitation. There was insufficient TR detected to calculate RV systolic pressure. MD Jared Crow 04/27/2019 01:14 PM
[2019-04-27 14:08] VITALS: BMI 20.9
[2019-04-28] MEDS: methylPREDNISolone NA SUCC 40 MG/1 ML VIAL IVPUSH SCH ×4 (03:45→21:20)
[2019-04-28 06:56] LABS: ALBUMIN 3.4 g/dl (3.4-5.0); BILIRUBIN,TOTAL 0.6 mg/dL (0.2-1); BLOOD UREA NITROGEN 30.7 mg/dL (7-18); CALCIUM 8.7 mg/dL (8.5-10.1); CREATININE 1.1 mg/dL (0.55-1.3); POTASSIUM 3.8 mmol/L (3.5-5.1); TOT PROT 5.8 g/dl (6.4-8.2)
[2019-04-28] MEDS: ALBUTEROL SO4 2.5/IPRATROPIUM 0.5 INH SOL 3 ML VIAL.NEB. NEB SCH ×4 (08:14→20:41)
[2019-04-28] MEDS: LOSARTAN POTASSIUM 50 MG TABLET (FP) PO SCH (10:33)
[2019-04-28] MEDS: amLODIPine BESYLATE 10 MG TABLET (FP) PO SCH (10:33)
[2019-04-28] MEDS: ASPIRIN COATED 81 MG TABLET.EC PO SCH (10:34)
[2019-04-28] MEDS: AZITHROMYCIN IVPB 500 MG/250 ML BAG IVPB SCH (10:34)
--- NOTE | 2019-04-28 11:42 | PN ---
Progress Note (short form) - Note Progress Note: s no cp palps dizzy; sob improving Current Medications Generic Name Dose Route Start Last Admin Trade Name Freq PRN Reason Stop Dose Admin Albuterol Sulfate 1 amp 04/26/19 13:01 Ventolin 0.083% Nebulizer Soln - NEB Q4H PRN SHORT OF BREATH/WHEEZING Albuterol/Ipratropium 1 amp 04/26/19 16:00 04/28/19 08:14 Duoneb - NEB 1 amp RQID [facility] Administration Amlodipine Besylate 10 mg 04/27/19 10:00 04/28/19 10:33 Norvasc - PO 10 mg DAILY [facility] Administration Aspirin 81 mg 04/26/19 17:45 04/28/19 10:34 Ecotrin - PO 81 mg Q2D [facility] Administration Atorvastatin Calcium 80 mg 04/26/19 22:00 04/27/19 21:29 Lipitor - PO 80 mg HS [facility] Administration Clopidogrel Bisulfate 75 mg 04/27/19 10:00 04/27/19 12:06 Plavix - PO 75 mg Q2D [facility] Administration Azithromycin 500 mg in 250 mls @ 250 mls/hr 04/27/19 10:00 04/28/19 10:34 Zithromax 500mg Ivpb (Pre-Docked) IVPB 250 mls/hr DAILY [facility] Administration Losartan Potassium 100 mg 04/27/19 10:00 04/28/19 10:33 Cozaar - PO 100 mg DAILY [facility] Administration Methylprednisolone Sodium Succinate 40 mg 04/26/19 19:00 04/28/19 10:33 Solu-Medrol - IVPUSH 40 mg Q6H-IV [facility] Administration Vital Signs Period Temp Pulse Resp BP Sys/Lock Pulse Ox Last 24 Hr 97.8 F-99 F 49-88 20-24 118-144/58-70 89-96 Constitutional: Yes: Well Nourished, No Distress Eyes: No: Sclera Icterus Respiratory: Yes: CTA Bilaterally, scattered rhonchi, wheezes. No: Accessory Muscle Use, Rales Gastrointestinal: Yes: Normal Bowel Sounds. No: Distention, Hepatomegaly, Palpable Mass, Tenderness Cardiovascular: Yes: Regular Rate and Rhythm JVD: No Heart Sounds: Yes: S1, S2. No: Gallop Murmur: No: Systolic Murmur, Diastolic Murmur Extremities: No: Cold, Cyanosis Edema: No Integumentary: No: Jaundice Neurological: Yes: Alert, Oriented (x3) Psychiatric: No: Agitated CBC, BMP 04/27/19 06:45 04/28/19 05:00 cxr: no chf ecg: sr, LVH with repol, no ischemic changes echo 03/2016: tds, mild dec lvef, nl rv, no sig valve path echo 04/2019: nl lv, rv tds, no sig valve path tele: sr Assessment/Plan sob, cough, copd: -getting abx, iv steroids for copd, pulm following - elevated BNP however presentation less consistent with CHF chronic CAD, remote pci, w/o angina: -mult prior stents (prox and mid LAD, entire RCA and RPDA) all patent on cath 2013 -no angina (chronic sob with chest pressure is copd sx--present prior to cath and unchanged since) -no signs acs -cont aspirin, plavix, statin, arb chronic diast chf -borderline depressed LVEF (45% on v-gram, 50% echo 2015) with moderately incr' d LVEDP at cath (24) -never clinical chf, no sob response to trial of lasix in past -current exam--clinically euvolemic -no diuretics needed HTN: -known bp lability from anxiety at times -reasonably controlled here HPL: -cont home statin +cigs: -previously counselled on cessation many times, not interested in quitting descending thoracic aortic aneurysm: -mild, stable size on 12/2017 ct chest -cont bp control
--- NOTE | 2019-04-28 12:00 | PN ---
Progress Note, Physician Chief Complaint: SOB COPD exacerbation History of Present Illness: SOB improved from yesterday Seen by Pulmonary - Current Medication List Current Medications: Active Medications Albuterol Sulfate (Ventolin 0.083% Nebulizer Soln -) 1 amp NEB Q4H PRN PRN Reason: SHORT OF BREATH/WHEEZING Albuterol/Ipratropium (Duoneb -) 1 amp NEB RQID [facility] Last Admin: 04/28/19 08:14 Dose: 1 amp Amlodipine Besylate (Norvasc -) 10 mg PO DAILY [facility] Last Admin: 04/28/19 10:33 Dose: 10 mg Aspirin (Ecotrin -) 81 mg PO Q2D [facility] Last Admin: 04/28/19 10:34 Dose: 81 mg Atorvastatin Calcium (Lipitor -) 80 mg PO HS [facility] Last Admin: 04/27/19 21:29 Dose: 80 mg Clopidogrel Bisulfate (Plavix -) 75 mg PO Q2D [facility] Last Admin: 04/27/19 12:06 Dose: 75 mg Azithromycin (Zithromax 500mg Ivpb (Pre-Docked)) 500 mg in 250 mls @ 250 mls/ hr IVPB DAILY [facility] Last Admin: 04/28/19 10:34 Dose: 250 mls/hr Losartan Potassium (Cozaar -) 100 mg PO DAILY [facility] Last Admin: 04/28/19 10:33 Dose: 100 mg Methylprednisolone Sodium Succinate (Solu-Medrol -) 40 mg IVPUSH Q6H-IV [facility] Last Admin: 04/28/19 10:33 Dose: 40 mg - Objective Vital Signs: Vital Signs Temperature 97.8 F 04/28/19 10:00 Pulse Rate 82 04/28/19 10:00 Respiratory Rate 20 04/28/19 10:00 Blood Pressure 127/59 L 04/28/19 10:00 O2 Sat by Pulse Oximetry (%) 92 L 04/28/19 09:00 Constitutional: Yes: Calm, Cachectic, Mild Distress Cardiovascular: Yes: Regular Rate and Rhythm Respiratory: Yes: On Nasal O2, SOB, SOB on Exertion Gastrointestinal: Yes: Normal Bowel Sounds, Soft Genitourinary: Yes: WNL Musculoskeletal: Yes: Muscle Weakness Extremities: Yes: WNL Edema: No Peripheral Pulses WNL: Yes Neurological: Yes: Alert, Oriented Psychiatric: Yes: Alert, Oriented Labs: CBC, BMP 04/27/19 06:45 04/28/19 05:00 Problem List - Problems (1) Chronic diastolic CHF (congestive heart failure) Assessment/Plan: -echo 04/2019: nl lv, rv tds, no sig valve path -Seen by cardiology -currently Euvolemic -CXR no effusions Code(s): I50.32 - CHRONIC DIASTOLIC (CONGESTIVE) HEART FAILURE Assessment/Plan (1) Acute on chronic respiratory failure with hypoxia and hypercapnia Assessment/Plan: -Pulm on board -Bronchodilators -Solumedrol-tapering -Bipap -Keep SpO2 >90% -CXR shows some minimal atelectatic changes at the bases -Azithromycin -Stiolto Code(s): J96.21 - ACUTE AND CHRONIC RESPIRATORY FAILURE WITH HYPOXIA; J96.22 - ACUTE AND CHRONIC RESPIRATORY FAILURE WITH HYPERCAPNIA (2) COPD exacerbation Assessment/Plan: -Pulm on board -Bronchodilators -Solumedrol Q6h -Bipap -Keep SpO2 >90% -CXR shows some minimal atelectatic changes at the bases -Azithromycin -Stiolto Code(s): J44.1 - CHRONIC OBSTRUCTIVE PULMONARY DISEASE W (ACUTE) EXACERBATION (3) CAD (coronary artery disease) Assessment/Plan: -Aspirin and Plavix on alternating days Code(s): I25.10 - ATHSCL HEART DISEASE OF [place] CORONARY ARTERY W/O ANG PCTRS (4) CKD (chronic kidney disease) Assessment/Plan: -monitor renal function daily -if become elevated consider renal consult Code(s): N18.9 - CHRONIC KIDNEY DISEASE, UNSPECIFIED (5) HTN (hypertension) Assessment/Plan: -Norvasc and Losartan -low Na diet Code(s): I10 - ESSENTIAL (PRIMARY) HYPERTENSION
--- NOTE | 2019-04-28 12:58 | PN ---
Progress Note (short form) - Note Progress Note: PULMONARY Still with shortness of breath, cough, wheezing, chest tightness. Slightly improvement from yesterday. Vital Signs Period Temp Pulse Resp BP Sys/Lock Pulse Ox Last 24 Hr 97.8 F-99 F 49-88 20-24 118-144/58-70 89-96 Gen: tachypneic at rest Heart: RRR Lung: poor air movement, +rhonchi, +wheezes Abd: soft, nontender Ext: no edema CBC, BMP 04/27/19 06:45 04/28/19 05:00 Active Medications Albuterol Sulfate (Ventolin 0.083% Nebulizer Soln -) 1 amp NEB Q4H PRN PRN Reason: SHORT OF BREATH/WHEEZING Albuterol/Ipratropium (Duoneb -) 1 amp NEB RQID [facility] Last Admin: 04/28/19 12:04 Dose: 1 amp Amlodipine Besylate (Norvasc -) 10 mg PO DAILY [facility] Last Admin: 04/28/19 10:33 Dose: 10 mg Aspirin (Ecotrin -) 81 mg PO Q2D [facility] Last Admin: 04/28/19 10:34 Dose: 81 mg Atorvastatin Calcium (Lipitor -) 80 mg PO HS [facility] Last Admin: 04/27/19 21:29 Dose: 80 mg Clopidogrel Bisulfate (Plavix -) 75 mg PO Q2D [facility] Last Admin: 04/27/19 12:06 Dose: 75 mg Azithromycin (Zithromax 500mg Ivpb (Pre-Docked)) 500 mg in 250 mls @ 250 mls/ hr IVPB DAILY [facility] Last Admin: 04/28/19 10:34 Dose: 250 mls/hr Losartan Potassium (Cozaar -) 100 mg PO DAILY [facility] Last Admin: 04/28/19 10:33 Dose: 100 mg Methylprednisolone Sodium Succinate (Solu-Medrol -) 40 mg IVPUSH Q6H-IV [facility] Last Admin: 04/28/19 10:33 Dose: 40 mg A/P Acute on Chronic Hypoxic and Hypercapneic Respiratory Failure Acute COPD EXacerbation CAD AAA Polycythemia likely from above Smoker h/o Bladder Ca - continue medrol at current dose - inhaled bronchodilators standing and PRN - O2 to keep SpO2 >90% - BiPAP as needed to assist in work of breathing - azithromycin - DVT prophylaxis
--- NOTE | 2019-04-28 15:21 | CONSULT ---
Consultation: CONSULT REQUEST: Heme/ONC HISTORY OF PRESENT ILLNESS: Patient is a 74 yo F with a PMhx of Bladder Ca (tumor removal 2018), Chronic respiratory failure, COPD (on 3L at home), HTN, was sent to the ER from her PCP for worsening SOB. Patient says shes been experiencing severe SOB over the last week. She says she was using her home O2 more with no improvement. She also says she's had a dry cough that also started last week. In the ER it was noted she desaturated to 85% and was placed on bipap. Patient is now on Medrol and Azithromycin. She says she has had mild improvement since being admitted and denies chest pain, nausea, vomiting, chills , fevers, diarrhea. Heme/Onc consulted for erythrocytosis of 18.8 Hgb, Cr 57.3. Erythrocytosis dates back to 2016 in the EMR. Family hx: no known cancers in the family Social: every day smoker, at least 1PPD for 50 years. Mammogram: over 2 years ago, says it was normal Colonoscopy: in the last 10 years, but does not remember when Denies recent travel REVIEW OF SYSTEMS: CONSTITUTIONAL: Absent: fever, chills, diaphoresis, generalized weakness, malaise, loss of appetite, weight change HEENT: Absent: rhinorrhea, nasal congestion, throat pain, throat swelling, difficulty swallowing, mouth swelling, ear pain, eye pain, visual changes CARDIOVASCULAR: Absent: chest pain, syncope, palpitations, irregular heart rate, lightheadedness , peripheral edema RESPIRATORY: cough, sob, finley, wheezing Absent:orthopnea, stridor, hemoptysis GASTROINTESTINAL: Absent: abdominal pain, abdominal distension, nausea, vomiting, diarrhea, constipation, melena, hematochezia GENITOURINARY: Absent: dysuria, frequency, urgency, hesitancy, hematuria, flank pain, genital pain SKIN: Absent: rash, itching, pallor HEMATOLOGIC/IMMUNOLOGIC: Absent: easy bleeding, easy bruising, lymphadenopathy, frequent infections PHYSICAL EXAMINATION Vital Signs - 24 hr 04/27/19 04/27/19 04/27/19 15:52 17:00 20:35 Temperature 98.7 F Pulse Rate 83 Respiratory 22 H Rate Blood Pressure 125/67 O2 Sat by Pulse 93 L 90 L Oximetry (%) 04/27/19 04/28/19 04/28/19 22:00 02:00 05:47 Temperature 98.6 F 97.9 F Pulse Rate 71 74 82 Respiratory 20 20 20 Rate Blood Pressure 118/60 131/70 118/69 O2 Sat by Pulse Oximetry (%) 04/28/19 04/28/19 04/28/19 07:45 09:00 10:00 Temperature 97.8 F Pulse Rate 82 Respiratory 20 20 Rate Blood Pressure 127/59 L O2 Sat by Pulse 96 92 L Oximetry (%) 04/28/19 04/28/19 12:04 14:00 Temperature 98.2 F Pulse Rate 72 Respiratory 20 Rate Blood Pressure 148/63 O2 Sat by Pulse 93 L Oximetry (%) GENERAL: dyspneic at rest, on 4L O2 HEAD: Normal with no signs of trauma. EYES: Pupils equal, round and reactive to light, extraocular movements intact, conjunctiva clear. EARS, NOSE, THROAT:oropharynx clear without exudates. Moist mucous membranes. NECK: supple without lymphadenopathy, JVD, or masses. LUNGS: scattered wheezing throughout, rhonchi HEART:RRR, no murmurs appreciated ABDOMEN: Soft, nontender, not distended, normoactive bowel sounds, No hepatomegaly or splenomegaly. MUSCULOSKELETAL: Normal range of motion at all joints. No bony deformities or tenderness. No CVA tenderness. LOWER EXTREMITIES: 2+ pulses, warm, well-perfused. No calf tenderness. No peripheral edema. NEUROLOGICAL: Cranial nerves II-XII intact. Breast: no masses palpable, no nipple discharge Laboratory Results - last 24 hr 04/28/19 05:00 Sodium 140 Potassium 3.8 Chloride 96 L Carbon Dioxide 41 H Anion Gap 3 L BUN 30.7 H Creatinine 1.1 Est GFR (CKD-EPI)AfAm 57.68 Est GFR (CKD-EPI)NonAf 49.77 Random Glucose 145 H Calcium 8.7 Total Bilirubin 0.6 AST 15 ALT 24 Alkaline Phosphatase 54 Total Protein 5.8 L Albumin 3.4 TSH 0.09 L Free T4 0.98 Active Medications Generic Name Dose Route Start Last Admin Trade Name Freq PRN Reason Stop Dose Admin Albuterol Sulfate 1 amp 04/26/19 13:01 Ventolin 0.083% Nebulizer Soln - NEB Q4H PRN SHORT OF BREATH/WHEEZING Albuterol/Ipratropium 1 amp 04/26/19 16:00 04/28/19 12:04 Duoneb - NEB 1 amp RQID ALFA Administration Amlodipine Besylate 10 mg 04/27/19 10:00 04/28/19 10:33 Norvasc - PO 10 mg DAILY ALFA Administration Aspirin 81 mg 04/26/19 17:45 04/28/19 10:34 Ecotrin - PO 81 mg Q2D ALFA Administration Atorvastatin Calcium 80 mg 04/26/19 22:00 04/27/19 21:29 Lipitor - PO 80 mg HS ALFA Administration Clopidogrel Bisulfate 75 mg 04/27/19 10:00 04/27/19 12:06 Plavix - PO 75 mg Q2D ALFA Administration Azithromycin 500 mg in 250 mls @ 250 mls/hr 04/27/19 10:00 04/28/19 10:34 Zithromax 500mg Ivpb (Pre-Docked) IVPB 250 mls/hr DAILY ALFA Administration Losartan Potassium 100 mg 04/27/19 10:00 04/28/19 10:33 Cozaar - PO 100 mg DAILY ALFA Administration Methylprednisolone Sodium Succinate 40 mg 04/26/19 19:00 04/28/19 10:33 Solu-Medrol - IVPUSH 40 mg Q6H-IV ALFA Administration ASSESSMENT/PLAN: #Erythrocytosis -Erythrocytosis likely secondary to hypercarbia respiratory failure -consider EPO and JAK2 to r/o primary polycythemia Dispo: We will continue to follow the patient. Thank you for this consultative opportunity. Visit type - Emergency Visit Emergency Visit: Yes ED Registration Date: 04/26/19 Care time: The patient presented to the Emergency Department on the above date and was hospitalized for further evaluation of their emergent condition. - New Patient This patient is new to me today: Yes Date on this admission: 04/29/19 - Critical Care Critical Care patient: No ATTENDING PHYSICIAN STATEMENT I saw and evaluated the patient. I reviewed the resident's note and discussed the case with the resident. I agree with the resident's findings and plan as documented. SUBJECTIVE: OBJECTIVE: ASSESSMENT AND PLAN:
[2019-04-28] MEDS: ATORVASTATIN CA 80 MG TABLET (FP) PO SCH (21:20)
[2019-04-29] MEDS: methylPREDNISolone NA SUCC 40 MG/1 ML VIAL IVPUSH SCH ×3 (03:22→17:53)
[2019-04-29 07:17] LABS: CALCIUM 8.1 mg/dL (8.5-10.1); CREATININE 1.1 mg/dL (0.55-1.3); POTASSIUM 3.9 mmol/L (3.5-5.1)
[2019-04-29] MEDS: ALBUTEROL SO4 2.5/IPRATROPIUM 0.5 INH SOL 3 ML VIAL.NEB. NEB SCH ×4 (08:04→20:45)
--- NOTE | 2019-04-29 09:30 | PN ---
Progress Note, Physician Chief Complaint: feels "better" Denies CP, SOB TELE: NSR w/ APCs - Current Medication List Current Medications: Active Medications Albuterol Sulfate (Ventolin 0.083% Nebulizer Soln -) 1 amp NEB Q4H PRN PRN Reason: SHORT OF BREATH/WHEEZING Last Admin: 04/28/19 23:19 Dose: 1 amp Albuterol/Ipratropium (Duoneb -) 1 amp NEB RQID [facility] Last Admin: 04/29/19 08:04 Dose: 1 amp Amlodipine Besylate (Norvasc -) 10 mg PO DAILY [facility] Last Admin: 04/28/19 10:33 Dose: 10 mg Aspirin (Ecotrin -) 81 mg PO Q2D [facility] Last Admin: 04/28/19 10:34 Dose: 81 mg Atorvastatin Calcium (Lipitor -) 80 mg PO HS [facility] Last Admin: 04/28/19 21:20 Dose: 80 mg Clopidogrel Bisulfate (Plavix -) 75 mg PO Q2D [facility] Last Admin: 04/27/19 12:06 Dose: 75 mg Azithromycin (Zithromax 500mg Ivpb (Pre-Docked)) 500 mg in 250 mls @ 250 mls/ hr IVPB DAILY [facility] Last Admin: 04/28/19 10:34 Dose: 250 mls/hr Losartan Potassium (Cozaar -) 100 mg PO DAILY [facility] Last Admin: 04/28/19 10:33 Dose: 100 mg Methylprednisolone Sodium Succinate (Solu-Medrol -) 40 mg IVPUSH Q6H-IV [facility] Last Admin: 04/29/19 03:22 Dose: 40 mg - Objective Vital Signs: Vital Signs Temperature 98.1 F 04/29/19 05:00 Pulse Rate 84 04/29/19 05:00 Respiratory Rate 21 H 04/29/19 05:00 Blood Pressure 136/74 04/29/19 05:00 O2 Sat by Pulse Oximetry (%) 96 04/29/19 07:30 Constitutional: Yes: Calm Cardiovascular: Yes: Regular Rate and Rhythm Respiratory: Yes: Other (decreased breath sounds at bases. b/l) Gastrointestinal: Yes: Soft Edema: No Neurological: Yes: Alert, Oriented Labs: CBC, BMP 04/27/19 06:45 04/29/19 05:00 Assessment/Plan cxr: no chf ecg: sr, LVH with repol, no ischemic changes echo 03/2016: tds, mild dec lvef, nl rv, no sig valve path echo 04/2019: nl lv, rv tds, no sig valve path tele: sr Assessment/Plan AE COPD: -getting abx, iv steroids for copd, pulm following - elevated BNP however presentation less consistent with CHF, euvolemic on exam Chronic CAD, remote pci, w/o angina: -mult prior stents (prox and mid LAD, entire RCA and RPDA) all patent on cath 2013 -no angina (chronic sob with chest pressure is copd sx--present prior to cath and unchanged since) -no signs acs -cont aspirin, plavix, statin, arb Chronic diast chf -borderline depressed LVEF (45% on v-gram, 50% echo 2015) with moderately incr' d LVEDP at cath (24) -never clinical chf, no sob response to trial of lasix in past -current exam--clinically euvolemic -no diuretics needed at this time HTN: -known bp lability from anxiety at times -reasonably controlled here HPL: -cont home statin +cigs: -previously counselled on cessation many times, not interested in quitting Descending thoracic aortic aneurysm: -mild, stable size on 12/2017 ct chest -cont bp control OK to d/c tele
[2019-04-29] MEDS: AZITHROMYCIN IVPB 500 MG/250 ML BAG IVPB SCH (11:01)
[2019-04-29] MEDS: amLODIPine BESYLATE 10 MG TABLET (FP) PO SCH (11:01)
[2019-04-29] MEDS: CLOPIDOGREL BISULFATE 75 MG TABLET (FP) PO SCH (11:01)
[2019-04-29] MEDS: LOSARTAN POTASSIUM 50 MG TABLET (FP) PO SCH (11:01)
--- NOTE | 2019-04-29 11:49 | PN ---
Progress Note, Physician History of Present Illness: PULMONARY ALERT,FEELING BETTER,LESS DYSPNEIC,LESS CONGESTED,AMBULATING - Current Medication List Current Medications: Active Medications Albuterol Sulfate (Ventolin 0.083% Nebulizer Soln -) 1 amp NEB Q4H PRN PRN Reason: SHORT OF BREATH/WHEEZING Last Admin: 04/28/19 23:19 Dose: 1 amp Albuterol/Ipratropium (Duoneb -) 1 amp NEB RQID [facility] Last Admin: 04/29/19 11:46 Dose: 1 amp Amlodipine Besylate (Norvasc -) 10 mg PO DAILY [facility] Last Admin: 04/29/19 11:01 Dose: 10 mg Aspirin (Ecotrin -) 81 mg PO Q2D [facility] Last Admin: 04/28/19 10:34 Dose: 81 mg Atorvastatin Calcium (Lipitor -) 80 mg PO HS [facility] Last Admin: 04/28/19 21:20 Dose: 80 mg Clopidogrel Bisulfate (Plavix -) 75 mg PO Q2D [facility] Last Admin: 04/29/19 11:01 Dose: 75 mg Azithromycin (Zithromax 500mg Ivpb (Pre-Docked)) 500 mg in 250 mls @ 250 mls/ hr IVPB DAILY [facility] Last Admin: 04/29/19 11:01 Dose: 250 mls/hr Losartan Potassium (Cozaar -) 100 mg PO DAILY [facility] Last Admin: 04/29/19 11:01 Dose: 100 mg Methylprednisolone Sodium Succinate (Solu-Medrol -) 40 mg IVPUSH Q6H-IV [facility] Last Admin: 04/29/19 11:18 Dose: 40 mg - Objective Vital Signs: Vital Signs Temperature 98 F 04/29/19 09:00 Pulse Rate 71 04/29/19 09:00 Respiratory Rate 21 H 04/29/19 09:00 Blood Pressure 128/65 04/29/19 09:00 O2 Sat by Pulse Oximetry (%) 92 L 04/29/19 11:31 Constitutional: Yes: Calm, Thin Eyes: Yes: WNL HENT: Yes: WNL Neck: Yes: WNL Cardiovascular: Yes: Regular Rate and Rhythm, S1, S2 Respiratory: Yes: Wheezes (FEW WHEEZES) Gastrointestinal: Yes: Normal Bowel Sounds, Soft Extremities: Yes: WNL Edema: No Labs: CBC, BMP 04/29/19 05:00 Problem List - Problems (1) Acute on chronic respiratory failure with hypoxia and hypercapnia Code(s): J96.21 - ACUTE AND CHRONIC RESPIRATORY FAILURE WITH HYPOXIA; J96.22 - ACUTE AND CHRONIC RESPIRATORY FAILURE WITH HYPERCAPNIA (2) COPD exacerbation Code(s): J44.1 - CHRONIC OBSTRUCTIVE PULMONARY DISEASE W (ACUTE) EXACERBATION (3) ASHD (arteriosclerotic heart disease) Code(s): I25.10 - ATHSCL HEART DISEASE OF [place] CORONARY ARTERY W/O ANG PCTRS (4) Acute on chronic respiratory failure with hypercapnia Code(s): J96.22 - ACUTE AND CHRONIC RESPIRATORY FAILURE WITH HYPERCAPNIA (5) Anxiety Code(s): F41.9 - ANXIETY DISORDER, UNSPECIFIED (6) Bladder cancer Code(s): C67.9 - MALIGNANT NEOPLASM OF BLADDER, UNSPECIFIED Qualifiers: Bladder location: unspecified site Qualified Code(s): C67.9 - Malignant neoplasm of bladder, unspecified (7) CAD (coronary artery disease) Code(s): I25.10 - ATHSCL HEART DISEASE OF [place] CORONARY ARTERY W/O ANG PCTRS (8) Tobacco abuse Code(s): Z72.0 - TOBACCO USE (9) Erythrocytosis Code(s): D75.1 - SECONDARY POLYCYTHEMIA Assessment/Plan IMP ACUTE ON CHRONIC HYPOXEMIC/HYPERCAPNEIC RESPIRATORY FAILURE COPD WITH ACUTE EXACERBATION ASHD S/P DE H/O BLADDER CA THORACIC AND ABDOMINAL AORTIC ANEURYSM SECONDARY ERYTHROCYTOSIS TOBACCO ABUSE PLAN INHALED BRONCHODILATORS O2 MEDROL TAPER NIPPV NEEDED ABX MONITOR LYTES,H+H DR LORD Problem List - Problems (1) Acute on chronic respiratory failure with hypoxia and hypercapnia Code(s): J96.21 - ACUTE AND CHRONIC RESPIRATORY FAILURE WITH HYPOXIA; J96.22 - ACUTE AND CHRONIC RESPIRATORY FAILURE WITH HYPERCAPNIA (2) COPD exacerbation Code(s): J44.1 - CHRONIC OBSTRUCTIVE PULMONARY DISEASE W (ACUTE) EXACERBATION (3) ASHD (arteriosclerotic heart disease) Code(s): I25.10 - ATHSCL HEART DISEASE OF [place] CORONARY ARTERY W/O ANG PCTRS (4) Acute on chronic respiratory failure with hypercapnia Code(s): J96.22 - ACUTE AND CHRONIC RESPIRATORY FAILURE WITH HYPERCAPNIA (5) Anxiety Code(s): F41.9 - ANXIETY DISORDER, UNSPECIFIED (6) Bladder cancer Code(s): C67.9 - MALIGNANT NEOPLASM OF BLADDER, UNSPECIFIED Qualifiers: Bladder location: unspecified site Qualified Code(s): C67.9 - Malignant neoplasm of bladder, unspecified (7) CAD (coronary artery disease) Code(s): I25.10 - ATHSCL HEART DISEASE OF [place] CORONARY ARTERY W/O ANG PCTRS (8) Tobacco abuse Code(s): Z72.0 - TOBACCO USE (9) Erythrocytosis Code(s): D75.1 - SECONDARY POLYCYTHEMIA
--- NOTE | 2019-04-29 12:16 | PN ---
Teaching Attending Note Name of Resident: Albert Lowry ATTENDING PHYSICIAN STATEMENT I saw and evaluated the patient. I reviewed the resident's note and discussed the case with the resident. I agree with the resident's findings and plan as documented. SUBJECTIVE: Patient seen and examined 74 iggy old female presents with exacerbation of COPD. Has erythrocytosis which has been present x several years . Normal WBC, Platelet count, and differential Daily smoker of 1+ ppd > 55 years . Non drinker, no industrial exposures or intoxicants . History of bladder cqa - s/p BCG instillation. Hx of [place], s/p stents. Last Vital Signs Temp Pulse Resp BP Pulse Ox 98 F 71 21 H 128/65 92 L 04/29/19 09:00 04/29/19 09:00 04/29/19 09:00 04/29/19 09:00 04/29/19 11:31 HEENT: [place], EOM Intact Oropharynx: No thrush, No mucositis Neck: Supple Nodes: Without adenopathy Breasts: Without masses Cor: RSR, No murmurs, No gallops Lungs:diminished breath sounds bilaterally Abd: Soft, Normal bowel sounds, No organomegaly Ext:No significant edema Skin: No rashes, Integument intact CBC, BMP 04/27/19 06:45 04/29/19 05:00 Current Medications Generic Name Dose Route Start Last Admin Trade Name Freq PRN Reason Stop Dose Admin Albuterol Sulfate 1 amp 04/26/19 13:01 04/28/19 23:19 Ventolin 0.083% Nebulizer Soln - NEB 1 amp Q4H PRN Administration SHORT OF BREATH/WHEEZING Albuterol/Ipratropium 1 amp 04/26/19 16:00 04/29/19 11:46 Duoneb - NEB 1 amp RQID ALFA Administration Amlodipine Besylate 10 mg 04/27/19 10:00 04/29/19 11:01 Norvasc - PO 10 mg DAILY ALFA Administration Aspirin 81 mg 04/26/19 17:45 04/28/19 10:34 Ecotrin - PO 81 mg Q2D ALFA Administration Atorvastatin Calcium 80 mg 04/26/19 22:00 04/28/19 21:20 Lipitor - PO 80 mg HS ALFA Administration Clopidogrel Bisulfate 75 mg 04/27/19 10:00 04/29/19 11:01 Plavix - PO 75 mg Q2D ALFA Administration Azithromycin 500 mg in 250 mls @ 250 mls/hr 04/27/19 10:00 04/29/19 11:01 Zithromax 500mg Ivpb (Pre-Docked) IVPB 250 mls/hr DAILY ALFA Administration Losartan Potassium 100 mg 04/27/19 10:00 04/29/19 11:01 Cozaar - PO 100 mg DAILY ALFA Administration Methylprednisolone Sodium Succinate 40 mg 04/29/19 18:00 Solu-Medrol - IVPUSH Q8H-IV ALFA Impression: Exacerbation of COPD Erythrocytosis likely secondary to hypercarbia respiratory failure Hx [place] - s/p stents Current every day smoker Plan: Current therapy Would obtain CHLOE-2 and erythropoietin level If CHLOE-2 is negative - against Primary polycythemia ;Epo level should be normal or low which would also support chronic hypoxemia and hypercarbia respiratory failure as etiology. For optimum rheology of blood , Hct should be closer to 45%. If persistent erythrocytosis, can consider phlebotomy. OBJECTIVE: ASSESSMENT AND PLAN:
--- NOTE | 2019-04-29 12:24 | PN ---
Progress Note, Physician Chief Complaint: SOB COPD exacerbation History of Present Illness: SOB improved from yesterday Seen by Pulmonary Self ambulatory - Current Medication List Current Medications: Active Medications Albuterol Sulfate (Ventolin 0.083% Nebulizer Soln -) 1 amp NEB Q4H PRN PRN Reason: SHORT OF BREATH/WHEEZING Last Admin: 04/28/19 23:19 Dose: 1 amp Albuterol/Ipratropium (Duoneb -) [address] [facility] Last Admin: 04/29/19 11:46 Dose: 1 amp Amlodipine Besylate (Norvasc -) [address] [facility] Last Admin: 04/29/19 11:01 Dose: 10 mg Aspirin (Ecotrin -) [address] [facility] Last Admin: 04/28/19 10:34 Dose: 81 mg Atorvastatin Calcium (Lipitor -) [address] [facility] Last Admin: 04/28/19 21:20 Dose: 80 mg Clopidogrel Bisulfate (Plavix -) [address] [facility] Last Admin: 04/29/19 11:01 Dose: 75 mg Azithromycin (Zithromax 500mg Ivpb (Pre-Docked)) 500 mg in 250 mls @ 250 mls/ hr IVPB DAILY [facility] Last Admin: 04/29/19 11:01 Dose: 250 mls/hr Losartan Potassium (Cozaar -) [address] [facility] Last Admin: 04/29/19 11:01 Dose: 100 mg Methylprednisolone Sodium Succinate (Solu-Medrol -) 40 mg IVPUSH Q8H-IV ALFA - Objective Vital Signs: Vital Signs Temperature 98 F 04/29/19 09:00 Pulse Rate 71 04/29/19 09:00 Respiratory Rate 21 H 04/29/19 09:00 Blood Pressure 128/65 04/29/19 09:00 O2 Sat by Pulse Oximetry (%) 92 L 04/29/19 11:31 Constitutional: Yes: No Distress, Calm, Cachectic Cardiovascular: Yes: Regular Rate and Rhythm Respiratory: Yes: Regular, On Nasal O2, SOB, SOB on Exertion Gastrointestinal: Yes: Normal Bowel Sounds, Soft Genitourinary: Yes: WNL Musculoskeletal: Yes: WNL Extremities: Yes: WNL Edema: No Peripheral Pulses WNL: Yes Neurological: Yes: Alert, Oriented Psychiatric: Yes: Alert, Oriented Labs: CBC, BMP 04/27/19 06:45 04/29/19 05:00 Problem List - Problems (1) Chronic diastolic CHF (congestive heart failure) Assessment/Plan: -echo 04/2019: nl lv, rv tds, no sig valve path -Seen by cardiology -currently Euvolemic -CXR no effusions Code(s): I50.32 - CHRONIC DIASTOLIC (CONGESTIVE) HEART FAILURE (2) Subclinical hyperthyroidism Assessment/Plan: -Endocrine consult Code(s): E05.90 - THYROTOXICOSIS, UNSP WITHOUT THYROTOXIC CRISIS OR STORM Assessment/Plan (1) Acute on chronic respiratory failure with hypoxia and hypercapnia Assessment/Plan: -Pulm on board -Bronchodilators -Solumedrol-tapering -Bipap -Keep SpO2 >90% -CXR shows some minimal atelectatic changes at the bases -Azithromycin -Stiolto -CT chest ordered by Pulmonary Code(s): J96.21 - ACUTE AND CHRONIC RESPIRATORY FAILURE WITH HYPOXIA; J96.22 - ACUTE AND CHRONIC RESPIRATORY FAILURE WITH HYPERCAPNIA (2) COPD exacerbation Assessment/Plan: -Pulm on board -Bronchodilators -Solumedrol Q6h -Bipap -Keep SpO2 >90% -CXR shows some minimal atelectatic changes at the bases -Azithromycin -Stiolto Code(s): J44.1 - CHRONIC OBSTRUCTIVE PULMONARY DISEASE W (ACUTE) EXACERBATION (3) CAD (coronary artery disease) Assessment/Plan: -Aspirin and Plavix on alternating days Code(s): I25.10 - ATHSCL HEART DISEASE OF [place] CORONARY ARTERY W/O ANG PCTRS (4) CKD (chronic kidney disease) Assessment/Plan: -monitor renal function daily -if become elevated consider renal consult Code(s): N18.9 - CHRONIC KIDNEY DISEASE, UNSPECIFIED (5) HTN (hypertension) Assessment/Plan: -Norvasc and Losartan -low Na diet Code(s): I10 - ESSENTIAL (PRIMARY) HYPERTENSION
[2019-04-29] MEDS: ATORVASTATIN CA 80 MG TABLET (FP) PO SCH (22:26)
[2019-04-29] MEDS ORDERED: PT OWN MED DRAWER 7, Y5N ONE (23:01)
[2019-04-30] MEDS: methylPREDNISolone NA SUCC 40 MG/1 ML VIAL IVPUSH SCH ×3 (01:25→17:21)
[2019-04-30 07:43] LABS: BLOOD UREA NITROGEN 41.8 mg/dL (7-18); CALCIUM 7.8 mg/dL (8.5-10.1); CREATININE 0.9 mg/dL (0.55-1.3); POTASSIUM 3.8 mmol/L (3.5-5.1)
[2019-04-30] MEDS: ALBUTEROL SO4 2.5/IPRATROPIUM 0.5 INH SOL 3 ML VIAL.NEB. NEB SCH ×4 (07:50→21:10)
--- NOTE | 2019-04-30 09:58 | PN ---
Progress Note, Physician Chief Complaint: no CP, cough continues No dizziness, palps - Current Medication List Current Medications: Active Medications Albuterol Sulfate (Ventolin 0.083% Nebulizer Soln -) 1 amp NEB Q4H PRN PRN Reason: SHORT OF BREATH/WHEEZING Last Admin: 04/28/19 23:19 Dose: 1 amp Albuterol/Ipratropium (Duoneb -) 1 amp NEB RQID [facility] Last Admin: 04/30/19 07:50 Dose: 1 amp Amlodipine Besylate (Norvasc -) 10 mg PO DAILY [facility] Last Admin: 04/29/19 11:01 Dose: 10 mg Aspirin (Ecotrin -) 81 mg PO Q2D [facility] Last Admin: 04/28/19 10:34 Dose: 81 mg Atorvastatin Calcium (Lipitor -) 80 mg PO HS [facility] Last Admin: 04/29/19 22:26 Dose: 80 mg Clopidogrel Bisulfate (Plavix -) 75 mg PO Q2D [facility] Last Admin: 04/29/19 11:01 Dose: 75 mg Azithromycin (Zithromax 500mg Ivpb (Pre-Docked)) 500 mg in 250 mls @ 250 mls/ hr IVPB DAILY [facility] Last Admin: 04/29/19 11:01 Dose: 250 mls/hr Losartan Potassium (Cozaar -) 100 mg PO DAILY [facility] Last Admin: 04/29/19 11:01 Dose: 100 mg Methylprednisolone Sodium Succinate (Solu-Medrol -) 40 mg IVPUSH Q8H-IV [facility] Last Admin: 04/30/19 01:25 Dose: 40 mg - Objective Vital Signs: Vital Signs Temperature 98.3 F 04/30/19 06:00 Pulse Rate 70 04/30/19 06:00 Respiratory Rate 22 H 04/30/19 06:00 Blood Pressure 138/65 04/30/19 06:00 O2 Sat by Pulse Oximetry (%) 92 L 04/30/19 07:50 Constitutional: Yes: No Distress Eyes: Yes: Conjunctiva Clear Cardiovascular: Yes: Regular Rate and Rhythm Respiratory: Yes: Other (decreased breath sounds b/l, no active wheezing) Gastrointestinal: Yes: Soft Edema: No Neurological: Yes: Alert, Oriented ...Motor Strength: WNL Labs: CBC, BMP 04/27/19 06:45 04/30/19 05:27 Laboratory Tests 04/30/19 05:27 Sodium 139 Potassium 3.8 BUN 41.8 H Creatinine 0.9 Calcium 7.8 L Assessment/Plan DATA: cxr: no chf ecg: sr, LVH with repol, no ischemic changes echo 03/2016: tds, mild dec lvef, nl rv, no sig valve path echo 04/2019: nl lv, rv tds, no sig valve path tele: sr Assessment/Plan AE COPD: -getting abx, iv steroids for copd, pulm following - elevated BNP however presentation less consistent with CHF, euvolemic on exam Chronic CAD, remote pci, w/o angina: -mult prior stents (prox and mid LAD, entire RCA and RPDA) all patent on cath 2013 -no angina (chronic sob with chest pressure is copd sx--present prior to cath and unchanged since) -no signs acs -cont aspirin, plavix, statin, arb Chronic diast CHF: -borderline depressed LVEF (45% on v-gram, 50% echo 2015) with moderately incr' d LVEDP at cath (24) -never clinical chf, no sob response to trial of lasix in past -current exam--clinically euvolemic -no diuretics needed at this time HTN: -known bp lability from anxiety at times -reasonably controlled here HPL: -cont home statin +cigs: -previously counselled on cessation many times, not interested in quitting Descending thoracic aortic aneurysm: -mild, stable size on 12/2017 ct chest -cont bp control TELE discontinued 04/29
[2019-04-30] MEDS: LOSARTAN POTASSIUM 50 MG TABLET (FP) PO SCH (09:59)
[2019-04-30] MEDS: AZITHROMYCIN IVPB 500 MG/250 ML BAG IVPB SCH (09:59)
[2019-04-30] MEDS: amLODIPine BESYLATE 10 MG TABLET (FP) PO SCH (09:59)
[2019-04-30] MEDS: ASPIRIN COATED 81 MG TABLET.EC PO SCH (09:59)
--- NOTE | 2019-04-30 12:27 | PN ---
Progress Note, Physician Chief Complaint: AWAKE ALERT EVENTS AND NOTES REVIEWED STILL SOB - Current Medication List Current Medications: Active Medications Albuterol Sulfate (Ventolin 0.083% Nebulizer Soln -) 1 amp NEB Q4H PRN PRN Reason: SHORT OF BREATH/WHEEZING Last Admin: 04/28/19 23:19 Dose: 1 amp Albuterol/Ipratropium (Duoneb -) 1 amp NEB RQID [facility] Last Admin: 04/30/19 11:08 Dose: 1 amp Amlodipine Besylate (Norvasc -) 10 mg PO DAILY [facility] Last Admin: 04/30/19 09:59 Dose: 10 mg Aspirin (Ecotrin -) 81 mg PO Q2D [facility] Last Admin: 04/30/19 09:59 Dose: 81 mg Atorvastatin Calcium (Lipitor -) 80 mg PO HS [facility] Last Admin: 04/29/19 22:26 Dose: 80 mg Clopidogrel Bisulfate (Plavix -) 75 mg PO Q2D [facility] Last Admin: 04/29/19 11:01 Dose: 75 mg Azithromycin (Zithromax 500mg Ivpb (Pre-Docked)) 500 mg in 250 mls @ 250 mls/ hr IVPB DAILY [facility] Last Admin: 04/30/19 09:59 Dose: 250 mls/hr Losartan Potassium (Cozaar -) 100 mg PO DAILY [facility] Last Admin: 04/30/19 09:59 Dose: 100 mg Methylprednisolone Sodium Succinate (Solu-Medrol -) 40 mg IVPUSH Q8H-IV [facility] Last Admin: 04/30/19 09:59 Dose: 40 mg - Objective Vital Signs: Vital Signs Temperature 98.2 F 04/30/19 10:00 Pulse Rate 85 04/30/19 10:00 Respiratory Rate 22 H 04/30/19 10:00 Blood Pressure 138/71 04/30/19 10:00 O2 Sat by Pulse Oximetry (%) 91 L 04/30/19 11:07 Constitutional: Yes: Moderate Distress Cardiovascular: Yes: Regular Rate and Rhythm Respiratory: Yes: Diminished, On Nasal O2, Wheezes Gastrointestinal: Yes: Soft Genitourinary: Yes: WNL Musculoskeletal: Yes: Muscle Weakness Edema: No Integumentary: Yes: Bruising, Skin Tear Neurological: Yes: Pre-Existing Deficit Psychiatric: Yes: Other Labs: CBC, BMP 04/27/19 06:45 04/30/19 05:27 Problem List - Problems (1) Thoracic aortic aneurysm Code(s): I71.2 - THORACIC AORTIC ANEURYSM, WITHOUT RUPTURE (2) Diastolic CHF Code(s): I50.30 - UNSPECIFIED DIASTOLIC (CONGESTIVE) HEART FAILURE (3) Acute on chronic respiratory failure with hypoxia and hypercapnia Code(s): J96.21 - ACUTE AND CHRONIC RESPIRATORY FAILURE WITH HYPOXIA; J96.22 - ACUTE AND CHRONIC RESPIRATORY FAILURE WITH HYPERCAPNIA (4) COPD exacerbation Code(s): J44.1 - CHRONIC OBSTRUCTIVE PULMONARY DISEASE W (ACUTE) EXACERBATION (5) Chronic diastolic CHF (congestive heart failure) Code(s): I50.32 - CHRONIC DIASTOLIC (CONGESTIVE) HEART FAILURE (6) ASHD (arteriosclerotic heart disease) Code(s): I25.10 - ATHSCL HEART DISEASE OF [place] CORONARY ARTERY W/O ANG PCTRS (7) Anxiety Code(s): F41.9 - ANXIETY DISORDER, UNSPECIFIED (8) Bladder cancer Code(s): C67.9 - MALIGNANT NEOPLASM OF BLADDER, UNSPECIFIED Qualifiers: Bladder location: unspecified site Qualified Code(s): C67.9 - Malignant neoplasm of bladder, unspecified (9) ESBL (extended spectrum beta-lactamase) producing bacteria infection Code(s): A49.9 - BACTERIAL INFECTION, UNSPECIFIED; Z16.12 - EXTENDED SPECTRUM BETA LACTAMASE (ESBL) RESISTANCE (10) H/O acute myocardial infarction Code(s): I25.2 - OLD MYOCARDIAL INFARCTION (11) Tobacco abuse Code(s): Z72.0 - TOBACCO USE Assessment/Plan IV STEROIDS TAPER PULM/CARDIO EVAL TAA INCREASED IN SIZE, CTS EVAL ONCE COPD TREATED 02 SUPPORT DVT/GI PROPHYLAXIS PT EVAL
--- NOTE | 2019-04-30 14:35 | PN ---
Progress Note (short form) - Note Progress Note: Reports breathing feels a little better. Still with SOB with minimal exertion. No CP. Intake & Output 04/27/19 04/28/19 04/29/19 04/30/19 23:59 23:59 23:59 23:59 Intake Total 350 1080 1020 10 Balance 350 1080 1020 10 Weight 107 lb Last Vital Signs Temp Pulse Resp BP Pulse Ox 98.2 F 85 22 H 138/71 91 L 04/30/19 10:00 04/30/19 10:00 04/30/19 10:00 04/30/19 10:00 04/30/19 11:07 Active Medications Albuterol Sulfate (Ventolin 0.083% Nebulizer Soln -) 1 amp NEB Q4H PRN PRN Reason: SHORT OF BREATH/WHEEZING Last Admin: 04/28/19 23:19 Dose: 1 amp Albuterol/Ipratropium (Duoneb -) 1 amp NEB RQID [facility] Last Admin: 04/30/19 11:08 Dose: 1 amp Amlodipine Besylate (Norvasc -) 10 mg PO DAILY [facility] Last Admin: 04/30/19 09:59 Dose: 10 mg Aspirin (Ecotrin -) 81 mg PO Q2D [facility] Last Admin: 04/30/19 09:59 Dose: 81 mg Atorvastatin Calcium (Lipitor -) 80 mg PO HS [facility] Last Admin: 04/29/19 22:26 Dose: 80 mg Clopidogrel Bisulfate (Plavix -) 75 mg PO Q2D [facility] Last Admin: 04/29/19 11:01 Dose: 75 mg Azithromycin (Zithromax 500mg Ivpb (Pre-Docked)) 500 mg in 250 mls @ 250 mls/ hr IVPB DAILY [facility] Last Admin: 04/30/19 09:59 Dose: 250 mls/hr Losartan Potassium (Cozaar -) 100 mg PO DAILY [facility] Last Admin: 04/30/19 09:59 Dose: 100 mg Methylprednisolone Sodium Succinate (Solu-Medrol -) 40 mg IVPUSH Q8H-IV [facility] Last Admin: 04/30/19 09:59 Dose: 40 mg Constitutional: Yes: Mildly tachypneic at rest Cardiovascular: Yes: Regular Rate and Rhythm Respiratory: Yes: Diminished, On Nasal O2, Expiratory Wheezes Gastrointestinal: Yes: Soft Genitourinary: Yes: WNL Musculoskeletal: Yes: Muscle Weakness Edema: No Integumentary: Yes: Bruising, Skin Tear Neurological: Yes: Pre-Existing Deficit Psychiatric: Yes: Other Labs: Laboratory Results - last 24 hr 04/29/19 04/30/19 05:00 05:27 Sodium 139 Potassium 3.8 Chloride 98 Carbon Dioxide 37 H Anion Gap 4 L BUN 41.8 H Creatinine 0.9 Est GFR (CKD-EPI)AfAm 73.52 Est GFR (CKD-EPI)NonAf 63.43 Random Glucose 142 H Calcium 7.8 L Thyroid Peroxidase Ab 22 Problem List - Problems (1) Thoracic aortic aneurysm Code(s): I71.2 - THORACIC AORTIC ANEURYSM, WITHOUT RUPTURE (2) Diastolic CHF Code(s): I50.30 - UNSPECIFIED DIASTOLIC (CONGESTIVE) HEART FAILURE (3) Acute on chronic respiratory failure with hypoxia and hypercapnia Code(s): J96.21 - ACUTE AND CHRONIC RESPIRATORY FAILURE WITH HYPOXIA; J96.22 - ACUTE AND CHRONIC RESPIRATORY FAILURE WITH HYPERCAPNIA (4) COPD exacerbation Code(s): J44.1 - CHRONIC OBSTRUCTIVE PULMONARY DISEASE W (ACUTE) EXACERBATION (5) Chronic diastolic CHF (congestive heart failure) Code(s): I50.32 - CHRONIC DIASTOLIC (CONGESTIVE) HEART FAILURE (6) ASHD (arteriosclerotic heart disease) Code(s): I25.10 - ATHSCL HEART DISEASE OF [place] CORONARY ARTERY W/O ANG PCTRS (7) Anxiety Code(s): F41.9 - ANXIETY DISORDER, UNSPECIFIED (8) Bladder cancer Code(s): C67.9 - MALIGNANT NEOPLASM OF BLADDER, UNSPECIFIED Qualifiers: Bladder location: unspecified site Qualified Code(s): C67.9 - Malignant neoplasm of bladder, unspecified (9) ESBL (extended spectrum beta-lactamase) producing bacteria infection Code(s): A49.9 - BACTERIAL INFECTION, UNSPECIFIED; Z16.12 - EXTENDED SPECTRUM BETA LACTAMASE (ESBL) RESISTANCE (10) H/O acute myocardial infarction Code(s): I25.2 - OLD MYOCARDIAL INFARCTION (11) Tobacco abuse Code(s): Z72.0 - TOBACCO USE Assessment/Plan IV STEROIDS O2 NEEDED DVT/GI PROPHYLAXIS PT NO SMOKING DISCUSSED ZITHROMAX DR EDWARDS
--- NOTE | 2019-04-30 19:30 | CONSULT ---
Consult Consult Specialty:: endocrine Referred by:: susan alicea np Reason for Consultation:: subclinical hyperthyroidis - History of Present Illness Chief Complaint: short of breath weak History of Present Illness: 74y/o F hx of copd, htn, heart disease, presenting with anxiety,shortness of breath,weakness.upon presentation given nebulizer therapy and did not improve. she gets weakness and dyspnea despite reduction in tobacco use.she denies weight loss,heat intolerance,or neck discomfort.she was found to have abnormal thyroid function tests. - Past Medical History Cardio/Vascular: Yes: CAD, Hyperlipdemia Pulmonary: Yes: COPD Renal/: Yes: Renal Inusuff, Other (bladder cancer) ...: No - Alcohol/Substance Use Hx Alcohol Use: No - Smoking History Smoking history: Current every day smoker Have you smoked in the past 12 months: Yes Aproximately how many cigarettes per day: 40 - Social History ADL: Independent History of Recent Travel: No Home Medications - Allergies Allergies/Adverse Reactions: Allergies Allergy/AdvReac Type Severity Reaction Status Date / Time No Known Drug Allergies Allergy Verified 04/26/19 10:24 - Home Medications Home Medications: Ambulatory Orders Amlodipine Besylate 10 mg PO DAILY 05/08/16 Losartan Potassium 100 mg PO DAILY 05/08/16 Clopidogrel Bisulfate [Plavix -] 75 mg PO DAILY #0 05/12/16 Atorvastatin Ca [Lipitor] 80 mg PO HS tablet 11/03/16 Lactobacillus Acidophilus [Bacid -] 1 tab PO BID #60 tab 11/03/16 Albuterol 2.5/Ipratropium 0.5 [Duoneb -] 1 amp NEB RQID amp 04/26/18 Alprazolam [Xanax] 0.25 mg PO BID #20 tablet MDD 2 04/26/18 Tiotropium Br/Olodaterol HCl [Stiolto Respimat Inhal [place]] 2 puff IH DAILY Tiotropium [place] [Spiriva] 18 mcg IH DAILY 04/26/19 Review of Systems - Review of Systems Constitutional: reports: Weakness Eyes: reports: No Symptoms HENT: reports: No Symptoms Neck: reports: Decreased ROM Cardiovascular: reports: Shortness of Breath Respiratory: reports: Exercise Intolerance, SOB on Exertion Gastrointestinal: reports: Bloating Genitourinary: reports: No Symptoms Breasts: reports: No Symptoms Reported Integumentary: reports: No Symptoms Neurological: reports: Weakness Endocrine: reports: Unexplained Weight Loss Physical Exam Vital Signs: Vital Signs Temperature 97.7 F 04/30/19 14:15 Pulse Rate 75 04/30/19 18:00 Respiratory Rate 20 04/30/19 18:00 Blood Pressure 115/63 04/30/19 18:00 O2 Sat by Pulse Oximetry (%) 91 L 04/30/19 11:07 Constitutional: Yes: Anxious Eyes: Yes: EOM Intact HENT: Yes: Normocephalic Neck: Yes: Trachea Midline Cardiovascular: Yes: Tachycardia Respiratory: Yes: CTA Bilaterally Gastrointestinal: Yes: Normal Bowel Sounds ...Rectal Exam: Yes: Deferred Renal/: Yes: WNL Breast(s): Yes: WNL Musculoskeletal: Yes: WNL Integumentary: Yes: WNL Neurological: Yes: Alert, Oriented Psychiatric: Yes: Alert, Oriented Labs: CBC, BMP 04/27/19 06:45 04/30/19 05:27 Problem List - Problems (1) COPD exacerbation Code(s): J44.1 - CHRONIC OBSTRUCTIVE PULMONARY DISEASE W (ACUTE) EXACERBATION (2) Chronic diastolic CHF (congestive heart failure) Code(s): I50.32 - CHRONIC DIASTOLIC (CONGESTIVE) HEART FAILURE (3) Diastolic CHF Code(s): I50.30 - UNSPECIFIED DIASTOLIC (CONGESTIVE) HEART FAILURE (4) Erythrocytosis Code(s): D75.1 - SECONDARY POLYCYTHEMIA (5) Subclinical hyperthyroidism Code(s): E05.90 - THYROTOXICOSIS, UNSP WITHOUT THYROTOXIC CRISIS OR STORM (6) Thoracic aortic aneurysm Code(s): I71.2 - THORACIC AORTIC ANEURYSM, WITHOUT RUPTURE Assessment/Plan Current Active Problems Acute on chronic respiratory failure with hypoxia and hypercapnia (Acute) COPD exacerbation (Acute) Chronic diastolic CHF (congestive heart failure) (Acute) Diastolic CHF (Acute) Erythrocytosis (Acute) Subclinical hyperthyroidism (Acute) Thoracic aortic aneurysm (Acute) Abnormal Lab Results 04/30/19 05:27 Carbon Dioxide 37 H Anion Gap 4 L BUN 41.8 H Random Glucose 142 H Calcium 7.8 L Laboratory Results - last 24 hr 04/29/19 04/30/19 05:00 05:27 Sodium 139 Potassium 3.8 Chloride 98 Carbon Dioxide 37 H Anion Gap 4 L BUN 41.8 H Creatinine 0.9 Est GFR (CKD-EPI)AfAm 73.52 Est GFR (CKD-EPI)NonAf 63.43 Random Glucose 142 H Calcium 7.8 L Thyroid Peroxidase Ab 22 Laboratory Tests 04/27/19 04/28/19 06:45 05:00 TSH 0.18 L 0.09 L Free T4 0.98 plan: euthyroid sick syndrome steroid related tsh suppression vs thyroiditis ck tsi ck tpo may repeat tfts as outpatient and thyroid sonogram
[2019-04-30] MEDS: ATORVASTATIN CA 80 MG TABLET (FP) PO SCH (21:53)
[2019-05-01] MEDS: methylPREDNISolone NA SUCC 40 MG/1 ML VIAL IVPUSH SCH ×3 (02:19→18:03)
[2019-05-01] MEDS: ALBUTEROL SO4 2.5/IPRATROPIUM 0.5 INH SOL 3 ML VIAL.NEB. NEB SCH ×2 (08:11→11:47)
[2019-05-01] MEDS: AZITHROMYCIN IVPB 500 MG/250 ML BAG IVPB SCH (09:27)
[2019-05-01] MEDS: CLOPIDOGREL BISULFATE 75 MG TABLET (FP) PO SCH (09:27)
[2019-05-01] MEDS: amLODIPine BESYLATE 10 MG TABLET (FP) PO SCH (09:27)
[2019-05-01] MEDS: LOSARTAN POTASSIUM 50 MG TABLET (FP) PO SCH (09:27)
--- NOTE | 2019-05-01 09:32 | PN ---
Progress Note, Physician Chief Complaint: seen and examined No CP, Palps. History of Present Illness: BP well controlled - Current Medication List Current Medications: Active Medications Albuterol Sulfate (Ventolin 0.083% Nebulizer Soln -) 1 amp NEB Q4H PRN PRN Reason: SHORT OF BREATH/WHEEZING Last Admin: 04/28/19 23:19 Dose: 1 amp Albuterol/Ipratropium (Duoneb -) 1 amp NEB RQID [facility] Last Admin: 05/01/19 08:11 Dose: 1 amp Amlodipine Besylate (Norvasc -) 10 mg PO DAILY [facility] Last Admin: 04/30/19 09:59 Dose: 10 mg Aspirin (Ecotrin -) 81 mg PO Q2D [facility] Last Admin: 04/30/19 09:59 Dose: 81 mg Atorvastatin Calcium (Lipitor -) 80 mg PO HS [facility] Last Admin: 04/30/19 21:53 Dose: 80 mg Clopidogrel Bisulfate (Plavix -) 75 mg PO Q2D [facility] Last Admin: 04/29/19 11:01 Dose: 75 mg Azithromycin (Zithromax 500mg Ivpb (Pre-Docked)) 500 mg in 250 mls @ 250 mls/ hr IVPB DAILY [facility] Last Admin: 04/30/19 09:59 Dose: 250 mls/hr Losartan Potassium (Cozaar -) 100 mg PO DAILY [facility] Last Admin: 04/30/19 09:59 Dose: 100 mg Methylprednisolone Sodium Succinate (Solu-Medrol -) 40 mg IVPUSH Q8H-IV [facility] Last Admin: 05/01/19 02:19 Dose: 40 mg - Objective Vital Signs: Vital Signs Temperature 98.0 F 05/01/19 05:42 Pulse Rate 69 05/01/19 05:42 Respiratory Rate 18 05/01/19 05:42 Blood Pressure 143/69 05/01/19 05:42 O2 Sat by Pulse Oximetry (%) 90 L 04/30/19 22:00 Constitutional: Yes: No Distress, Calm Cardiovascular: Yes: Regular Rate and Rhythm Respiratory: Yes: Other (decreased breath sounds b/l; no active wheezing.) Gastrointestinal: Yes: Soft Edema: No Neurological: Yes: Alert, Oriented ...Motor Strength: WNL Labs: CBC, BMP 04/27/19 06:45 04/30/19 05:27 Assessment/Plan DATA: cxr: no chf ecg: sr, LVH with repol, no ischemic changes echo 03/2016: tds, mild dec lvef, nl rv, no sig valve path echo 04/2019: nl lv, rv tds, no sig valve path tele: sr Assessment/Plan AE COPD: -getting abx, iv steroids for copd, pulm following - elevated BNP however presentation less consistent with CHF, euvolemic on exam Chronic CAD, remote pci, w/o angina: -mult prior stents (prox and mid LAD, entire RCA and RPDA) all patent on cath 2013 -no angina (chronic sob with chest pressure is copd sx--present prior to cath and unchanged since) -no signs acs -cont aspirin, plavix, statin, arb Chronic diast CHF: -borderline depressed LVEF (45% on v-gram, 50% echo 2015) with moderately incr' d LVEDP at cath (24) -never clinical chf, no sob response to trial of lasix in past -current exam--clinically euvolemic -no diuretics needed at this time, monitoring closely for signs of volume overload while on IV steroids HTN: -known bp lability from anxiety at times -Controlled now. HPL: -cont home statin Smoking: -previously counselled on cessation many times, not interested in quitting Descending thoracic aortic aneurysm: -mild, stable size on 12/2017 ct chest -cont bp control TELE discontinued 04/29
--- NOTE | 2019-05-01 09:42 | PN ---
Progress Note, Physician Chief Complaint: AWAKE ALERT C/O CONSTIPATION FEELS BETTER - Current Medication List Current Medications: Active Medications Albuterol Sulfate (Ventolin 0.083% Nebulizer Soln -) 1 amp NEB Q4H PRN PRN Reason: SHORT OF BREATH/WHEEZING Last Admin: 04/28/19 23:19 Dose: 1 amp Albuterol/Ipratropium (Duoneb -) [address] [facility] Last Admin: 05/01/19 08:11 Dose: 1 amp Amlodipine Besylate (Norvasc -) [address] [facility] Last Admin: 05/01/19 09:27 Dose: 10 mg Aspirin (Ecotrin -) [address] [facility] Last Admin: 04/30/19 09:59 Dose: 81 mg Atorvastatin Calcium (Lipitor -) [address] [facility] Last Admin: 04/30/19 21:53 Dose: 80 mg Clopidogrel Bisulfate (Plavix -) [address] [facility] Last Admin: 05/01/19 09:27 Dose: 75 mg Docusate Sodium (Colace -) [address] [facility] Azithromycin (Zithromax 500mg Ivpb (Pre-Docked)) 500 mg in 250 mls @ 250 mls/ hr IVPB DAILY [facility] Last Admin: 05/01/19 09:27 Dose: 250 mls/hr Losartan Potassium (Cozaar -) [address] [facility] Last Admin: 05/01/19 09:27 Dose: 100 mg Methylprednisolone Sodium Succinate (Solu-Medrol -) 40 mg IVPUSH Q8H-IV [facility] Last Admin: 05/01/19 09:27 Dose: 40 mg - Objective Vital Signs: Vital Signs Temperature 98.0 F 05/01/19 05:42 Pulse Rate 69 05/01/19 05:42 Respiratory Rate 18 05/01/19 05:42 Blood Pressure 143/69 05/01/19 05:42 O2 Sat by Pulse Oximetry (%) 90 L 04/30/19 22:00 Constitutional: Yes: Mild Distress Eyes: Yes: WNL HENT: Yes: WNL Neck: Yes: WNL Cardiovascular: Yes: Regular Rate and Rhythm Respiratory: Yes: Diminished, On Nasal O2, Wheezes Gastrointestinal: Yes: WNL Genitourinary: Yes: WNL Musculoskeletal: Yes: Muscle Weakness Extremities: Yes: WNL Edema: No Integumentary: Yes: WNL Wound/Incision: Yes: Clean/Dry Neurological: Yes: WNL ...Motor Strength: WNL Psychiatric: Yes: WNL Labs: CBC, BMP 04/27/19 06:45 04/30/19 05:27 Problem List - Problems (1) Thoracic aortic aneurysm Code(s): I71.2 - THORACIC AORTIC ANEURYSM, WITHOUT RUPTURE (2) Diastolic CHF Code(s): I50.30 - UNSPECIFIED DIASTOLIC (CONGESTIVE) HEART FAILURE (3) Acute on chronic respiratory failure with hypoxia and hypercapnia Code(s): J96.21 - ACUTE AND CHRONIC RESPIRATORY FAILURE WITH HYPOXIA; J96.22 - ACUTE AND CHRONIC RESPIRATORY FAILURE WITH HYPERCAPNIA (4) COPD exacerbation Code(s): J44.1 - CHRONIC OBSTRUCTIVE PULMONARY DISEASE W (ACUTE) EXACERBATION (5) Chronic diastolic CHF (congestive heart failure) Code(s): I50.32 - CHRONIC DIASTOLIC (CONGESTIVE) HEART FAILURE (6) ASHD (arteriosclerotic heart disease) Code(s): I25.10 - ATHSCL HEART DISEASE OF [place] CORONARY ARTERY W/O ANG PCTRS (7) Anxiety Code(s): F41.9 - ANXIETY DISORDER, UNSPECIFIED (8) Bladder cancer Code(s): C67.9 - MALIGNANT NEOPLASM OF BLADDER, UNSPECIFIED Qualifiers: Bladder location: unspecified site Qualified Code(s): C67.9 - Malignant neoplasm of bladder, unspecified (9) ESBL (extended spectrum beta-lactamase) producing bacteria infection Code(s): A49.9 - BACTERIAL INFECTION, UNSPECIFIED; Z16.12 - EXTENDED SPECTRUM BETA LACTAMASE (ESBL) RESISTANCE (10) H/O acute myocardial infarction Code(s): I25.2 - OLD MYOCARDIAL INFARCTION (11) Tobacco abuse Code(s): Z72.0 - TOBACCO USE Assessment/Plan IV STEROIDS TAPER PULM/CARDIO EVAL TAA INCREASED IN SIZE, CTS EVAL ONCE COPD TREATED 02 SUPPORT DVT/GI PROPHYLAXIS COLACE FOR CONSTIPATION PT EVAL
[2019-05-01] MEDS: DOCUSATE SODIUM 100 MG CAPSULE (FP) PO SCH ×2 (11:37→21:48)
[2019-05-01] MEDS: RANITIDINE HCL 150 MG TABLET (FP) PO SCH ×2 (11:37→21:49)
--- NOTE | 2019-05-01 13:29 | PN ---
Progress Note (short form) - Note Progress Note: Reports breathing feels a little better. Still with SOB with minimal exertion. No CP. Intake & Output 04/28/19 04/29/19 04/30/19 05/01/19 23:59 23:59 23:59 23:59 Intake Total 1080 1020 990 10 Balance 1080 1020 990 10 Last Vital Signs Temp Pulse Resp BP Pulse Ox 98.4 F 82 24 H 149/62 90 L 05/01/19 09:53 05/01/19 09:53 05/01/19 09:53 05/01/19 09:53 05/01/19 09:00 Active Medications Albuterol/Ipratropium (Duoneb -) 1 amp NEB RQID [facility] Last Admin: 05/01/19 11:47 Dose: 1 amp Amlodipine Besylate (Norvasc -) 10 mg PO DAILY [facility] Last Admin: 05/01/19 09:27 Dose: 10 mg Aspirin (Ecotrin -) 81 mg PO Q2D [facility] 234 [facility] Last Admin: 04/30/19 09:59 Dose: 81 mg Atorvastatin Calcium (Lipitor -) 80 mg PO HS [facility] 234 [facility]S [facility] Last Admin: 04/30/19 21:53 Dose: 80 mg Clopidogrel Bisulfate (Plavix -) 75 mg PO Q2D [facility] 234 [facility] Last Admin: 05/01/19 09:27 Dose: 75 mg Docusate Sodium (Colace -) 100 mg PO BID [facility] 234 [facility] Last Admin: 05/01/19 11:37 Dose: Not Given Azithromycin (Zithromax 500mg Ivpb (Pre-Docked)) 500 mg in 250 mls @ 250 mls/ hr IVPB DAILY [facility] Last Admin: 05/01/19 09:27 Dose: 250 mls/hr Losartan Potassium (Cozaar -) 100 mg PO DAILY [facility] 234 [facility] Last Admin: 05/01/19 09:27 Dose: 100 mg Methylprednisolone Sodium Succinate (Solu-Medrol -) 40 mg IVPUSH Q8H-IV [facility] 234 BEDS [facility] Last Admin: 05/01/19 09:27 Dose: 40 mg Ranitidine HCl (Zantac -) 150 mg PO BID [facility] 234 B[facility]S [facility] Last Admin: 05/01/19 11:37 Dose: 150 mg Constitutional: Yes: Mildly tachypneic at rest Cardiovascular: Yes: Regular Rate and Rhythm Respiratory: Yes: Diminished, On Nasal O2, Expiratory Wheezes Gastrointestinal: Yes: Soft Genitourinary: Yes: WNL Musculoskeletal: Yes: Muscle Weakness Edema: No Integumentary: Yes: Bruising, Skin Tear Neurological: Yes: Pre-Existing Deficit Psychiatric: Yes: Other Labs: Laboratory Results - last 24 hr 04/30/19 21:00 TSH 0.09 L Problem List - Problems (1) Thoracic aortic aneurysm Code(s): I71.2 - THORACIC AORTIC ANEURYSM, WITHOUT RUPTURE (2) Diastolic CHF Code(s): I50.30 - UNSPECIFIED DIASTOLIC (CONGESTIVE) HEART FAILURE (3) Acute on chronic respiratory failure with hypoxia and hypercapnia Code(s): J96.21 - ACUTE AND CHRONIC RESPIRATORY FAILURE WITH HYPOXIA; J96.22 - ACUTE AND CHRONIC RESPIRATORY FAILURE WITH HYPERCAPNIA (4) COPD exacerbation Code(s): J44.1 - CHRONIC OBSTRUCTIVE PULMONARY DISEASE W (ACUTE) EXACERBATION (5) Chronic diastolic CHF (congestive heart failure) Code(s): I50.32 - CHRONIC DIASTOLIC (CONGESTIVE) HEART FAILURE (6) ASHD (arteriosclerotic heart disease) Code(s): I25.10 - ATHSCL HEART DISEASE OF [place] CORONARY ARTERY W/O ANG PCTRS (7) Anxiety Code(s): F41.9 - ANXIETY DISORDER, UNSPECIFIED (8) Bladder cancer Code(s): C67.9 - MALIGNANT NEOPLASM OF BLADDER, UNSPECIFIED Qualifiers: Bladder location: unspecified site Qualified Code(s): C67.9 - Malignant neoplasm of bladder, unspecified (9) ESBL (extended spectrum beta-lactamase) producing bacteria infection Code(s): A49.9 - BACTERIAL INFECTION, UNSPECIFIED; Z16.12 - EXTENDED SPECTRUM BETA LACTAMASE (ESBL) RESISTANCE (10) H/O acute myocardial infarction Code(s): I25.2 - OLD MYOCARDIAL INFARCTION (11) Tobacco abuse Code(s): Z72.0 - TOBACCO USE Assessment/Plan IV STEROIDS O2 NEEDED DVT/GI PROPHYLAXIS PT NO SMOKING DISCUSSED ZITHROMAX DR EDWARDS
[2019-05-01] MEDS: ATORVASTATIN CA 80 MG TABLET (FP) PO SCH (21:48)
[2019-05-02] MEDS: methylPREDNISolone NA SUCC 40 MG/1 ML VIAL IVPUSH SCH ×3 (02:41→22:24)
[2019-05-02] MEDS: LOSARTAN POTASSIUM 50 MG TABLET (FP) PO SCH (09:42)
[2019-05-02] MEDS: RANITIDINE HCL 150 MG TABLET (FP) PO SCH ×2 (09:43→22:23)
[2019-05-02] MEDS: ASPIRIN COATED 81 MG TABLET.EC PO SCH (09:43)
[2019-05-02] MEDS: AZITHROMYCIN IVPB 500 MG/250 ML BAG IVPB SCH (09:44)
[2019-05-02] MEDS: amLODIPine BESYLATE 10 MG TABLET (FP) PO SCH (09:44)
[2019-05-02] MEDS: DOCUSATE SODIUM 100 MG CAPSULE (FP) PO SCH ×2 (09:45→22:23)
--- NOTE | 2019-05-02 11:04 | PN ---
Progress Note, Physician History of Present Illness: PULMONARY ALERT,FEELING BETTER LESS DYPNEIC,LESS COUGH. O2 SAT 93% ON NASAL CANNULA - Current Medication List Current Medications: Active Medications Amlodipine Besylate (Norvasc -) 10 mg PO DAILY [facility] Last Admin: 05/02/19 09:44 Dose: 10 mg Aspirin (Ecotrin -) 81 mg PO Q2D [facility] Last Admin: 05/02/19 09:43 Dose: 81 mg Atorvastatin Calcium (Lipitor -) 80 mg PO HS [facility] Last Admin: 05/01/19 21:48 Dose: 80 mg Clopidogrel Bisulfate (Plavix -) 75 mg PO Q2D [facility] Last Admin: 05/01/19 09:27 Dose: 75 mg Docusate Sodium (Colace -) 100 mg PO BID [facility] Last Admin: 05/02/19 09:45 Dose: Not Given Azithromycin (Zithromax 500mg Ivpb (Pre-Docked)) 500 mg in 250 mls @ 250 mls/ hr IVPB DAILY [facility] Last Admin: 05/02/19 09:44 Dose: 250 mls/hr Losartan Potassium (Cozaar -) 100 mg PO DAILY [facility] Last Admin: 05/02/19 09:42 Dose: 100 mg Methylprednisolone Sodium Succinate (Solu-Medrol -) 40 mg IVPUSH Q8H-IV [facility] Last Admin: 05/02/19 09:44 Dose: 40 mg Ranitidine HCl (Zantac -) 150 mg PO BID [facility] Last Admin: 05/02/19 09:43 Dose: 150 mg - Objective Vital Signs: Vital Signs Temperature 98.4 F 05/02/19 10:00 Pulse Rate 71 05/02/19 10:00 Respiratory Rate 24 H 05/02/19 10:00 Blood Pressure 150/66 05/02/19 10:00 O2 Sat by Pulse Oximetry (%) 94 L 05/01/19 21:00 Constitutional: Yes: Calm, Thin, Other (MILDLY DYSPNEIC) Eyes: Yes: WNL HENT: Yes: WNL Neck: Yes: WNL Cardiovascular: Yes: Regular Rate and Rhythm, S1, S2 Respiratory: Yes: Diminished, Wheezes (FEW WHEEZES MAREN) Gastrointestinal: Yes: Normal Bowel Sounds, Soft Extremities: Yes: WNL Edema: No Labs: CBC, BMP 04/27/19 06:45 04/30/19 05:27 - ....Imaging Cat Scan: Report Reviewed, Image Reviewed Problem List - Problems (1) Acute on chronic respiratory failure with hypoxia and hypercapnia Code(s): J96.21 - ACUTE AND CHRONIC RESPIRATORY FAILURE WITH HYPOXIA; J96.22 - ACUTE AND CHRONIC RESPIRATORY FAILURE WITH HYPERCAPNIA (2) COPD exacerbation Code(s): J44.1 - CHRONIC OBSTRUCTIVE PULMONARY DISEASE W (ACUTE) EXACERBATION (3) ASHD (arteriosclerotic heart disease) Code(s): I25.10 - ATHSCL HEART DISEASE OF [place] CORONARY ARTERY W/O ANG PCTRS (4) Acute on chronic respiratory failure with hypercapnia Code(s): J96.22 - ACUTE AND CHRONIC RESPIRATORY FAILURE WITH HYPERCAPNIA (5) Anxiety Code(s): F41.9 - ANXIETY DISORDER, UNSPECIFIED (6) Bladder cancer Code(s): C67.9 - MALIGNANT NEOPLASM OF BLADDER, UNSPECIFIED Qualifiers: Bladder location: unspecified site Qualified Code(s): C67.9 - Malignant neoplasm of bladder, unspecified (7) CAD (coronary artery disease) Code(s): I25.10 - ATHSCL HEART DISEASE OF [place] CORONARY ARTERY W/O ANG PCTRS (8) Tobacco abuse Code(s): Z72.0 - TOBACCO USE (9) Erythrocytosis Code(s): D75.1 - SECONDARY POLYCYTHEMIA Assessment/Plan IMP ACUTE ON CHRONIC HYPOXEMIC/HYPERCAPNEIC RESPIRATORY FAILURE COPD WITH ACUTE EXACERBATION ASHD S/P ND H/O BLADDER CA THORACIC AND ABDOMINAL AORTIC ANEURYSM MILDLY INCREASED IN SIZE SECONDARY ERYTHROCYTOSIS TOBACCO ABUSE PLAN INHALED BRONCHODILATORS O2 CONTINUE MEDROL TAPER NIPPV NEEDED ABX MONITOR LYTES,H+H DR LORD Problem List - Problems (1) Acute on chronic respiratory failure with hypoxia and hypercapnia Code(s): J96.21 - ACUTE AND CHRONIC RESPIRATORY FAILURE WITH HYPOXIA; J96.22 - ACUTE AND CHRONIC RESPIRATORY FAILURE WITH HYPERCAPNIA (2) COPD exacerbation Code(s): J44.1 - CHRONIC OBSTRUCTIVE PULMONARY DISEASE W (ACUTE) EXACERBATION (3) ASHD (arteriosclerotic heart disease) Code(s): I25.10 - ATHSCL HEART DISEASE OF [place] CORONARY ARTERY W/O ANG PCTRS (4) Acute on chronic respiratory failure with hypercapnia Code(s): J96.22 - ACUTE AND CHRONIC RESPIRATORY FAILURE WITH HYPERCAPNIA (5) Anxiety Code(s): F41.9 - ANXIETY DISORDER, UNSPECIFIED (6) Bladder cancer Code(s): C67.9 - MALIGNANT NEOPLASM OF BLADDER, UNSPECIFIED Qualifiers: Bladder location: unspecified site Qualified Code(s): C67.9 - Malignant neoplasm of bladder, unspecified (7) CAD (coronary artery disease) Code(s): I25.10 - ATHSCL HEART DISEASE OF [place] CORONARY ARTERY W/O ANG PCTRS (8) Tobacco abuse Code(s): Z72.0 - TOBACCO USE (9) Erythrocytosis Code(s): D75.1 - SECONDARY POLYCYTHEMIA
--- NOTE | 2019-05-02 11:35 | PN ---
Progress Note, Physician Chief Complaint: SOB COPD exacerbation History of Present Illness: SOB improved from yesterday Seen by Pulmonary Self ambulatory CT chest shows COPD and distal thoraic and proximal abdominal aortic aneurysm of 3.4 cm- does not require any intervention at this time. Consider thoracic Sx or vascular consult if Aneurysm> 4 cm - Current Medication List Current Medications: Active Medications Amlodipine Besylate (Norvasc -) 10 mg PO DAILY [facility] Last Admin: 05/02/19 09:44 Dose: 10 mg Aspirin (Ecotrin -) 81 mg PO Q2D [facility] Last Admin: 05/02/19 09:43 Dose: 81 mg Atorvastatin Calcium (Lipitor -) 80 mg PO HS [facility] Last Admin: 05/01/19 21:48 Dose: 80 mg Clopidogrel Bisulfate (Plavix -) 75 mg PO Q2D [facility] Last Admin: 05/01/19 09:27 Dose: 75 mg Docusate Sodium (Colace -) 100 mg PO BID [facility] Last Admin: 05/02/19 09:45 Dose: Not Given Losartan Potassium (Cozaar -) 100 mg PO DAILY [facility] Last Admin: 05/02/19 09:42 Dose: 100 mg Methylprednisolone Sodium Succinate (Solu-Medrol -) 40 mg IVPUSH BID [facility] Ranitidine HCl (Zantac -) 150 mg PO BID [facility] Last Admin: 05/02/19 09:43 Dose: 150 mg - Objective Vital Signs: Vital Signs Temperature 98.4 F 05/02/19 10:00 Pulse Rate 71 05/02/19 10:00 Respiratory Rate 24 H 05/02/19 10:00 Blood Pressure 150/66 05/02/19 10:00 O2 Sat by Pulse Oximetry (%) 94 L 05/01/19 21:00 Constitutional: Yes: No Distress, Calm, Cachectic Cardiovascular: Yes: Regular Rate and Rhythm Respiratory: Yes: On Nasal O2, SOB, SOB on Exertion Gastrointestinal: Yes: Normal Bowel Sounds, Soft Breast(s): Yes: WNL Musculoskeletal: Yes: WNL Extremities: Yes: WNL Edema: No Peripheral Pulses WNL: Yes Neurological: Yes: Alert, Oriented Psychiatric: Yes: Oriented Labs: CBC, BMP 04/27/19 06:45 04/30/19 05:27 Problem List - Problems (1) Chronic diastolic CHF (congestive heart failure) Assessment/Plan: -echo 04/2019: nl lv, rv tds, no sig valve path -Seen by cardiology -currently Euvolemic -CXR no effusions Code(s): I50.32 - CHRONIC DIASTOLIC (CONGESTIVE) HEART FAILURE (2) Subclinical hyperthyroidism Assessment/Plan: -Endocrine consult -Repeat TFT's outaptient along with Thyroid U/S Code(s): E05.90 - THYROTOXICOSIS, UNSP WITHOUT THYROTOXIC CRISIS OR STORM Assessment/Plan (1) Acute on chronic respiratory failure with hypoxia and hypercapnia Assessment/Plan: -Pulm on board -Bronchodilators -Solumedrol-tapering -Bipap -Keep SpO2 >90% -CXR shows some minimal atelectatic changes at the bases -D/C Azithromycin- completed 6 days -Stiolto -CT chest reviewed Code(s): J96.21 - ACUTE AND CHRONIC RESPIRATORY FAILURE WITH HYPOXIA; J96.22 - ACUTE AND CHRONIC RESPIRATORY FAILURE WITH HYPERCAPNIA (2) COPD exacerbation Assessment/Plan: -Pulm on board -Bronchodilators -Solumedrol BID, may change to PO tomorrow and d/c if cleared by pulmonary -Bipap -Keep SpO2 >90% -CXR shows some minimal atelectatic changes at the bases -CT chest: COPD + thoracic and abdominal aneurysm at 3.4 cm -D/C Azithromycin -Stiolto Code(s): J44.1 - CHRONIC OBSTRUCTIVE PULMONARY DISEASE W (ACUTE) EXACERBATION (3) CAD (coronary artery disease) Assessment/Plan: -Aspirin and Plavix on alternating days Code(s): I25.10 - ATHSCL HEART DISEASE OF [place] CORONARY ARTERY W/O ANG PCTRS (4) CKD (chronic kidney disease) Assessment/Plan: -monitor renal function daily -if become elevated consider renal consult Code(s): N18.9 - CHRONIC KIDNEY DISEASE, UNSPECIFIED (5) HTN (hypertension) Assessment/Plan: -Norvasc and Losartan -low Na diet Code(s): I10 - ESSENTIAL (PRIMARY) HYPERTENSION
--- NOTE | 2019-05-02 15:06 | PN ---
Progress Note (short form) - Note Progress Note: s: no chest pain, palps, dizziness. sob improving. Current Medications Amlodipine Besylate (Norvasc -) 10 mg PO DAILY [facility] Last Admin: 05/02/19 09:44 Dose: 10 mg Aspirin (Ecotrin -) 81 mg PO Q2D [facility] Last Admin: 05/02/19 09:43 Dose: 81 mg Atorvastatin Calcium (Lipitor -) 80 mg PO HS [facility] Last Admin: 05/01/19 21:48 Dose: 80 mg Clopidogrel Bisulfate (Plavix -) 75 mg PO Q2D [facility] Last Admin: 05/01/19 09:27 Dose: 75 mg Docusate Sodium (Colace -) 100 mg PO BID [facility] Last Admin: 05/02/19 09:45 Dose: Not Given Losartan Potassium (Cozaar -) 100 mg PO DAILY [facility] Last Admin: 05/02/19 09:42 Dose: 100 mg Methylprednisolone Sodium Succinate (Solu-Medrol -) 40 mg IVPUSH BID [facility] Ranitidine HCl (Zantac -) 150 mg PO BID [facility] Last Admin: 05/02/19 09:43 Dose: 150 mg Vital Signs Period Temp Pulse Resp BP Sys/Lock Pulse Ox Last 24 Hr 97.7 F-98.5 F 71-74 22-24 122-150/60-71 90-94 Constitutional: Yes: No Distress, Calm Cardiovascular: Yes: Regular Rate and Rhythm Respiratory: Yes: Other (decreased breath sounds b/l; no active wheezing.) Gastrointestinal: Yes: Soft Edema: No Neurological: Yes: Alert, Oriented ...Motor Strength: WNL no jaundice, diaphoresis Assessment/Plan DATA: cxr: no chf ecg: sr, LVH with repol, no ischemic changes echo 03/2016: tds, mild dec lvef, nl rv, no sig valve path echo 04/2019: nl lv, rv tds, no sig valve path Assessment/Plan AE COPD: -getting abx, iv steroids for copd, pulm following - elevated BNP however presentation less consistent with CHF, remains euvolemic Chronic CAD, remote pci, w/o angina: -mult prior stents (prox and mid LAD, entire RCA and RPDA) all patent on cath 2013 -no angina (chronic sob with chest pressure is copd sx--present prior to cath and unchanged since) -no signs acs -cont aspirin, plavix, statin, arb Chronic diast CHF: -borderline depressed LVEF (45% on v-gram, 50% echo 2016) with moderately incr' d LVEDP at cath (24) -never clinical chf, no sob response to trial of lasix in past -current exam--clinically euvolemic -no diuretics needed at this time, monitoring closely for signs of volume overload while on IV steroids HTN: -known bp lability from anxiety at times -Controlled now. HPL: -cont home statin Smoking: -previously counselled on cessation many times, not interested in quitting Descending thoracic aortic aneurysm: -mild, stable size on 12/2017 ct chest -cont bp control
[2019-05-02] MEDS: ALBUTEROL SO4 2.5/IPRATROPIUM 0.5 INH SOL 3 ML VIAL.NEB. NEB SCH (18:35)
[2019-05-02] MEDS: ATORVASTATIN CA 80 MG TABLET (FP) PO SCH (22:23)
[2019-05-03] MEDS: ALBUTEROL SO4 2.5/IPRATROPIUM 0.5 INH SOL 3 ML VIAL.NEB. NEB SCH ×2 (08:32→12:24)
[2019-05-03 08:38] VITALS: BP 151/67; PULSE 76; TEMP 98.8
[2019-05-03] MEDS: CLOPIDOGREL BISULFATE 75 MG TABLET (FP) PO SCH (09:43)
[2019-05-03] MEDS: RANITIDINE HCL 150 MG TABLET (FP) PO SCH (09:43)
[2019-05-03] MEDS: DOCUSATE SODIUM 100 MG CAPSULE (FP) PO SCH (09:44)
[2019-05-03] MEDS: methylPREDNISolone NA SUCC 40 MG/1 ML VIAL IVPUSH SCH (09:44)
[2019-05-03] MEDS: amLODIPine BESYLATE 10 MG TABLET (FP) PO SCH (09:44)
[2019-05-03] MEDS: LOSARTAN POTASSIUM 50 MG TABLET (FP) PO SCH (09:44)
--- NOTE | 2019-05-03 10:21 | PN ---
Progress Note, Physician History of Present Illness: pulmonary alert,no distress,dyspnea improved,occ cough,-cp - Current Medication List Current Medications: Active Medications Albuterol/Ipratropium (Duoneb -) 1 amp NEB RQID [facility] Last Admin: 05/03/19 08:32 Dose: 1 amp Amlodipine Besylate (Norvasc -) 10 mg PO DAILY [facility] Last Admin: 05/03/19 09:44 Dose: 10 mg Aspirin (Ecotrin -) 81 mg PO Q2D [facility] Last Admin: 05/02/19 09:43 Dose: 81 mg Atorvastatin Calcium (Lipitor -) 80 mg PO HS [facility] Last Admin: 05/02/19 22:23 Dose: 80 mg Clopidogrel Bisulfate (Plavix -) 75 mg PO Q2D [facility] Last Admin: 05/03/19 09:43 Dose: 75 mg Docusate Sodium (Colace -) 100 mg PO BID [facility] Last Admin: 05/03/19 09:44 Dose: Not Given Losartan Potassium (Cozaar -) 100 mg PO DAILY [facility] Last Admin: 05/03/19 09:44 Dose: 100 mg Methylprednisolone Sodium Succinate (Solu-Medrol -) 40 mg IVPUSH BID [facility] Last Admin: 05/03/19 09:44 Dose: 40 mg Ranitidine HCl (Zantac -) 150 mg PO BID [facility] Last Admin: 05/03/19 09:43 Dose: 150 mg - Objective Vital Signs: Vital Signs Temperature 98.8 F 05/03/19 08:37 Pulse Rate 76 05/03/19 08:37 Respiratory Rate 22 H 05/03/19 08:38 Blood Pressure 151/67 05/03/19 08:37 O2 Sat by Pulse Oximetry (%) 90 L 05/03/19 08:38 Constitutional: Yes: Calm, Thin Eyes: Yes: WNL HENT: Yes: WNL Neck: Yes: WNL Cardiovascular: Yes: Regular Rate and Rhythm, S1, S2 Respiratory: Yes: Diminished Gastrointestinal: Yes: Normal Bowel Sounds, Soft Extremities: Yes: WNL Edema: No Labs: CBC, BMP Problem List - Problems (1) Acute on chronic respiratory failure with hypoxia and hypercapnia Code(s): J96.21 - ACUTE AND CHRONIC RESPIRATORY FAILURE WITH HYPOXIA; J96.22 - ACUTE AND CHRONIC RESPIRATORY FAILURE WITH HYPERCAPNIA (2) COPD exacerbation Code(s): J44.1 - CHRONIC OBSTRUCTIVE PULMONARY DISEASE W (ACUTE) EXACERBATION (3) ASHD (arteriosclerotic heart disease) Code(s): I25.10 - ATHSCL HEART DISEASE OF [place] CORONARY ARTERY W/O ANG PCTRS (4) Acute on chronic respiratory failure with hypercapnia Code(s): J96.22 - ACUTE AND CHRONIC RESPIRATORY FAILURE WITH HYPERCAPNIA (5) Anxiety Code(s): F41.9 - ANXIETY DISORDER, UNSPECIFIED (6) Bladder cancer Code(s): C67.9 - MALIGNANT NEOPLASM OF BLADDER, UNSPECIFIED Qualifiers: Bladder location: unspecified site Qualified Code(s): C67.9 - Malignant neoplasm of bladder, unspecified (7) CAD (coronary artery disease) Code(s): I25.10 - ATHSCL HEART DISEASE OF [place] CORONARY ARTERY W/O ANG PCTRS (8) Tobacco abuse Code(s): Z72.0 - TOBACCO USE (9) Erythrocytosis Code(s): D75.1 - SECONDARY POLYCYTHEMIA Assessment/Plan IMP ACUTE ON CHRONIC HYPOXEMIC/HYPERCAPNEIC RESPIRATORY FAILURE CLINICALLY IMPROVED COPD WITH ACUTE EXACERBATION IMPROVED ASHD S/P [place] H/O BLADDER CA THORACIC AND ABDOMINAL AORTIC ANEURYSM MILDLY INCREASED IN SIZE SECONDARY ERYTHROCYTOSIS TOBACCO ABUSE PLAN INHALED BRONCHODILATORS COMPLIANCE WITH O2 START PREDNISONE 40MG PO DAIKY IN AM SMOKING CESSATION DR LORD Problem List - Problems (1) Acute on chronic respiratory failure with hypoxia and hypercapnia Code(s): J96.21 - ACUTE AND CHRONIC RESPIRATORY FAILURE WITH HYPOXIA; J96.22 - ACUTE AND CHRONIC RESPIRATORY FAILURE WITH HYPERCAPNIA (2) COPD exacerbation Code(s): J44.1 - CHRONIC OBSTRUCTIVE PULMONARY DISEASE W (ACUTE) EXACERBATION (3) ASHD (arteriosclerotic heart disease) Code(s): I25.10 - ATHSCL HEART DISEASE OF [place] CORONARY ARTERY W/O ANG PCTRS (4) Acute on chronic respiratory failure with hypercapnia Code(s): J96.22 - ACUTE AND CHRONIC RESPIRATORY FAILURE WITH HYPERCAPNIA (5) Anxiety Code(s): F41.9 - ANXIETY DISORDER, UNSPECIFIED (6) Bladder cancer Code(s): C67.9 - MALIGNANT NEOPLASM OF BLADDER, UNSPECIFIED Qualifiers: Bladder location: unspecified site Qualified Code(s): C67.9 - Malignant neoplasm of bladder, unspecified (7) CAD (coronary artery disease) Code(s): I25.10 - ATHSCL HEART DISEASE OF [place] CORONARY ARTERY W/O ANG PCTRS (8) Tobacco abuse Code(s): Z72.0 - TOBACCO USE (9) Erythrocytosis Code(s): D75.1 - SECONDARY POLYCYTHEMIA
--- NOTE | 2019-05-03 11:03 | DS ---
Physical Examination Vital Signs: Vital Signs Temperature 98.8 F 05/03/19 08:37 Pulse Rate 76 05/03/19 08:37 Respiratory Rate 22 H 05/03/19 08:38 Blood Pressure 151/67 05/03/19 08:37 O2 Sat by Pulse Oximetry (%) 90 L 05/03/19 08:38 Findings/Remarks: Patient is a 74 y/o female with past medical history of Bladder CA, HTN, CAD, COPD. Patient presented to ER from PCP office for worsening SOB. Patient states that for the past week she has been experiencing worsening SOB and has been using her home O2 all day and is unable to have periods without it. Patient states having a productive cough with white/yellow sputum as well. In ER was noted with O2 sat 85% and placed on Bipap. Chest CT showed: Widest AP diameter measures 3.4 cm which has slightly increased in size since a prior study of 04/21/2018. There is also aneurysmal dilatation of the proximal thoracic aorta which now measures 3.4 cm. COPD, no acute pathology within the chest Constitutional: Yes: No Distress, Calm, Cachectic Cardiovascular: Yes: Regular Rate and Rhythm Respiratory: Yes: On Nasal O2, SOB on Exertion Gastrointestinal: Yes: Normal Bowel Sounds, Soft Musculoskeletal: Yes: WNL Extremities: Yes: WNL Edema: No Peripheral Pulses WNL: Yes Neurological: Yes: Alert, Oriented Psychiatric: Yes: Alert, Oriented Labs: CBC, BMP 04/27/19 06:45 04/30/19 05:27 Discharge Summary Reason For Visit: ACUTE EXACERBATION OF CHRONIC OBSTRUCTIVE PULMONAR Current Active Problems Acute on chronic respiratory failure with hypoxia and hypercapnia (Acute) COPD exacerbation (Acute) Chronic diastolic CHF (congestive heart failure) (Acute) Diastolic CHF (Acute) Erythrocytosis (Acute) Subclinical hyperthyroidism (Acute) Thoracic aortic aneurysm (Acute) Hospital Course: Laboratory Last Values WBC 8.4 K/mm3 (4.0-10.0) 04/27/19 06:45 RBC 5.74 M/mm3 (3.60-5.2) H 04/27/19 06:45 Hgb 17.1 GM/dL (10.7-15.3) H 04/27/19 06:45 Hct 50.9 % (32.4-45.2) H 04/27/19 06:45 MCV 88.6 fl (80-96) 04/27/19 06:45 MCH 29.7 pg (25.7-33.7) 04/27/19 06:45 MCHC 33.5 g/dl (32.0-36.0) 04/27/19 06:45 RDW 16.3 % (11.6-15.6) H 04/27/19 06:45 Plt Count 136 K/MM3 (134-434) 04/27/19 06:45 MPV 8.2 fl (7.5-11.1) 04/27/19 06:45 Absolute Neuts (auto) 8.0 K/mm3 (1.5-8.0) 04/27/19 06:45 Total Counted 100 04/27/19 06:45 Neutrophils % 94.5 % (42.8-82.8) H 04/27/19 06:45 Neutrophils % (Manual) 92.0 % (42.8-82.8) H 04/27/19 06:45 Lymphocytes % 4.4 % (8-40) L D 04/27/19 06:45 Lymphocytes % (Manual) 7.0 % (8-40) L D 04/27/19 06:45 Monocytes % 0.8 % (3.8-10.2) L 04/27/19 06:45 Monocytes % (Manual) 1 % (3.8-10.2) L D 04/27/19 06:45 Eosinophils % 0.0 % (0-4.5) D 04/27/19 06:45 Basophils % 0.3 % (0-2.0) 04/27/19 06:45 Nucleated RBC % 0 % (0-0) 04/27/19 06:45 Anticoagulation Therapy No Result Required. 04/27/19 06:21 Puncture Site Right radial 04/27/19 06:21 ABG pH 7.36 (7.35-7.45) 04/27/19 06:21 ABG pCO2 at Pt Temp 71.3 mmHg (35-45) H* 04/27/19 06:21 ABG pO2 at Pt Temp 63 mmHg (80-105) L 04/27/19 06:21 ABG HCO3 39.6 mmol/L (22-27) H 04/27/19 06:21 ABG O2 Sat (Measured) 89.9 % (95-98) L 04/27/19 06:21 ABG O2 Content 21.9 % vol (15-22) 04/27/19 06:21 ABG Base Excess 10.3 meq/l (-2-2) H 04/27/19 06:21 Michael Test Positive 04/27/19 06:21 Carboxyhemoglobin 2.6 % (0-2) H 04/26/19 14:27 Methemoglobin 0.3 % (0-2) 04/26/19 14:27 O2 Delivery Device N/c 04/27/19 06:21 Oxygen Flow Rate No Result Required. 04/27/19 06:21 Vent Mode No Result Required. 04/27/19 06:21 Vent Rate No Result Required. 04/27/19 06:21 Mechanical Rate No Result Required. 04/27/19 06:21 Pressure Support Vent No Result Required. 04/27/19 06:21 Sodium 139 mmol/L (136-145) 04/30/19 05:27 Potassium 3.8 mmol/L (3.5-5.1) 04/30/19 05:27 Chloride 98 mmol/L (98-107) 04/30/19 05:27 Carbon Dioxide 37 mmol/L (21-32) H 04/30/19 05:27 Anion Gap 4 MMOL/L (8-16) L 04/30/19 05:27 BUN 41.8 mg/dL (7-18) H 04/30/19 05:27 Creatinine 0.9 mg/dL (0.55-1.3) 04/30/19 05:27 Est GFR (CKD-EPI)AfAm 73.52 04/30/19 05:27 Est GFR (CKD-EPI)NonAf 63.43 04/30/19 05:27 Random Glucose 142 mg/dL (74-106) H 04/30/19 05:27 Hemoglobin A1c % 5.8 % (4.2-6.3) 04/29/19 05:05 Calcium 7.8 mg/dL (8.5-10.1) L 04/30/19 05:27 Phosphorus 4.5 mg/dL (2.5-4.9) 04/27/19 06:45 Magnesium 1.9 mg/dL (1.8-2.4) 04/26/19 20:30 Total Bilirubin 0.6 mg/dL (0.2-1) 04/28/19 05:00 AST 15 U/L (15-37) 04/28/19 05:00 ALT 24 U/L (13-61) 04/28/19 05:00 Alkaline Phosphatase 54 U/L (45-117) 04/28/19 05:00 Creatine Kinase 85 U/L (26-192) 04/26/19 10:54 Troponin I 0.03 ng/ml (0.00-0.05) 04/27/19 06:45 B-Natriuretic Peptide 1205.9 pg/ml (5-125) H 04/27/19 06:45 Total Protein 5.8 g/dl (6.4-8.2) L 04/28/19 05:00 Albumin 3.4 g/dl (3.4-5.0) 04/28/19 05:00 Triglycerides 70 mg/dL (0-150) 04/27/19 06:45 Cholesterol 150 mg/dL (50-200) 04/27/19 06:45 Total LDL Cholesterol 59 mg/dL (5-100) 04/27/19 06:45 HDL Cholesterol 75 mg/dL (40-60) H 04/27/19 06:45 TSH 0.09 uIU/ml (0.358-3.74) L 04/30/19 21:00 Free T4 0.98 ng/dl (0.76-1.46) 04/28/19 05:00 Thyroid Peroxidase Ab 22 IU/mL (0-34) 04/29/19 05:00 Vital Signs Temp 98.8 F 05/03/19 08:37 Pulse 76 05/03/19 08:37 Resp 22 H 05/03/19 08:38 BP 151/67 05/03/19 08:37 Pulse Ox 90 L 05/03/19 08:38 Intake & Output 05/02/19 05/02/19 05/03/19 11:59 23:59 11:59 Intake Total 20 200 11 Balance 20 200 11 Intake: IV 20 11 LEFT HAND 20 11 Oral 200 Other: Voiding Method Toilet Toilet Toilet # Unmeasured Voids Void 2 2 2 Bowel Movement No Yes # Bowel Movements 1 Condition: Stable - Instructions Diet, Activity, Other Instructions: -Prednisone tapering dose as followin mg daily in AM for 3 days, then 35 mg daily in AM for 3 days, then 30 mg daily in AM for 3 days, then 25 mg daily in AM for 3 days, then 20 mg daily in AM for 3 days, then 15 mg daily in AM for 3 days, then 10 mg daily in AM for 3 days, then 5 mg daily in AM for 3 days, then stop -Also f/u with Dr Lackey within 2 weeks or call him Referrals: Aquiles Lackey MD [Staff Physician] - Khanh Gutiérrez MD [Primary Care Provider] - Disposition: VNS/HOME HEALTH CARE - Home Medications Comprehensive Discharge Medication List: Ambulatory Orders Amlodipine Besylate 10 mg PO DAILY 05/08/16 Losartan Potassium 100 mg PO DAILY 05/08/16 Clopidogrel Bisulfate [Plavix -] 75 mg PO DAILY #0 05/12/16 Atorvastatin Ca [Lipitor] 80 mg PO HS tablet 11/03/16 Lactobacillus Acidophilus [Bacid -] 1 tab PO BID #60 tab 11/03/16 Albuterol 2.5/Ipratropium 0.5 [Duoneb -] 1 amp NEB RQID amp 04/26/18 Alprazolam [Xanax] 0.25 mg PO BID #20 tablet MDD 2 04/26/18 Tiotropium Br/Olodaterol HCl [Stiolto Respimat Inhal [place]] 2 puff IH DAILY Tiotropium [place] [Spiriva] 18 mcg IH DAILY 04/26/19 Prednisone 40 mg PO ASDIR #60 tablet 05/03/19
--- NOTE | 2019-05-03 11:30 | PN ---
Progress Note (short form) - Note Progress Note: s: no chest pain, palps, dizziness, sob Vital Signs Period Temp Pulse Resp BP Sys/Lock Pulse Ox Last 24 Hr 97.9 F-98.9 F 68-99 20-22 124-151/47-77 90-94 Constitutional: Yes: No Distress, Calm Cardiovascular: Yes: Regular Rate and Rhythm Respiratory: Yes: Other (decreased breath sounds b/l; no active wheezing.) Gastrointestinal: Yes: Soft Edema: No Neurological: Yes: Alert, Oriented ...Motor Strength: WNL no jaundice, diaphoresis DATA: cxr: no chf ecg: sr, LVH with repol, no ischemic changes echo 03/2016: tds, mild dec lvef, nl rv, no sig valve path echo 04/2019: nl lv, rv tds, no sig valve path Assessment/Plan AE COPD: -getting abx, iv steroids for copd, pulm following - elevated BNP however presentation less consistent with CHF, remains euvolemic Chronic CAD, remote pci, w/o angina: -mult prior stents (prox and mid LAD, entire RCA and RPDA) all patent on cath 2013 -no angina (chronic sob with chest pressure is copd sx--present prior to cath and unchanged since) -no signs acs -cont aspirin, plavix, statin, arb Chronic diast CHF: -borderline depressed LVEF (45% on v-gram, 50% echo 2015) with moderately incr' d LVEDP at cath (24) -never clinical chf, no sob response to trial of lasix in past -current exam--clinically euvolemic -no diuretics needed at this time HTN: -known bp lability from anxiety at times -Controlled now. HPL: -cont home statin Smoking: -previously counselled on cessation many times, not interested in quitting Descending thoracic aortic aneurysm: -mild, increased size CT chest here compared to prior, now 3.4 cm, also aneurysmal dilation of prox thoracic aorta 3.4 cm. -cont bp control - outpatient follow up for monitoring
[2019-05-03 15:12] LABS: THYROID STIM IMMUNOGLOBULIN <0.10 IU/L (0.00-0.55)
== END 2019-05-03 13:15 | disposition home health service (06) | DRG 189 ==
LOC: JER 10:15 → JERBED 12:37 → J4W 04-27 12:11
PROVIDERS: ADMIT Family Medicine; ATTEND Family Medicine
DX: J96.21 Acute and chronic respiratory failure with hypoxia (principal); J44.1 Chronic obstructive pulmonary disease with (acute) exacerbation; R64 Cachexia; I13.0 Hypertensive heart and chronic kidney disease with heart failure and stage 1 through stage 4 chronic kidney disease, or unspecified chronic kidney disease; I50.32 Chronic diastolic (congestive) heart failure; J98.11 Atelectasis; J44.9 Chronic obstructive pulmonary disease, unspecified; J96.22 Acute and chronic respiratory failure with hypercapnia; I25.2 Old myocardial infarction; F17.210 Nicotine dependence, cigarettes, uncomplicated; I25.10 Atherosclerotic heart disease of native coronary artery without angina pectoris; I71.4 Abdominal aortic aneurysm, without rupture; E05.90 Thyrotoxicosis, unspecified without thyrotoxic crisis or storm; I71.2 Thoracic aortic aneurysm, without rupture; D75.1 Secondary polycythemia; F41.9 Anxiety disorder, unspecified; Z68.20 Body mass index [BMI] 20.0-20.9, adult; E78.5 Hyperlipidemia, unspecified; N18.9 Chronic kidney disease, unspecified; Z95.5 Presence of coronary angioplasty implant and graft; Z85.51 Personal history of malignant neoplasm of bladder; Z99.81 Dependence on supplemental oxygen
CPT/HCPCS: 36415; 36600; 71045-TC-FY; 71250-TC; 80048; 80053; 80061; 82375; 82550; 82803; 83036; 83050; 83721; 83735; 83880; 84100; 84436; 84439; 84443; 84445; 84484; 85025; 86376; 93005; 93010; 93306-TC; 94640; 94660; 97116-GP; 97161-GP; 99285-25; J3535

== ENCOUNTER 2019-10-03 09:42 | Inpatient (IN) | payer OTHER, MEDICARE ==
--- NOTE | 2019-10-03 10:22 | PDOC ---
History of Present Illness - General Chief Complaint: Shortness of Breath Stated Complaint: SENT BY DOCTOR Time Seen by Provider: 10/03/19 10:21 History Source: Patient Exam Limitations: No Limitations - History of Present Illness Initial Comments: 10/03/19 11:36 74yF w PMHx bladder CA, HTN, CAD, COPD (3-4L NC baseline) presents with SOB, white productive cough 4d. Noted to be hypoxic to 64% at Dr. Gutiérrez's office today. Used nebs with some temporary relief at home. Denies fever/chills, chest pain, abd pain, n/v, extremity swelling, orthopnea. Past History - Past Medical History Allergies/Adverse Reactions: Allergies Allergy/AdvReac Type Severity Reaction Status Date / Time No Known Drug Allergies Allergy Verified 10/03/19 09:50 Home Medications: Ambulatory Orders Amlodipine Besylate 5 mg PO DAILY 05/08/16 Losartan Potassium 100 mg PO DAILY 05/08/16 Clopidogrel Bisulfate [Plavix -] 75 mg PO DAILY #0 05/12/16 Atorvastatin Ca [Lipitor] 80 mg PO HS tablet 11/03/16 Lactobacillus Acidophilus [Bacid -] 1 tab PO BID #60 tab 11/03/16 Albuterol 2.5/Ipratropium 0.5 [Duoneb -] 1 amp NEB RQID amp 04/26/18 Alprazolam [Xanax] 0.25 mg PO BID #20 tablet MDD 2 04/26/18 Tiotropium Br/Olodaterol HCl [Stiolto Respimat Inhal [place]] 2 puff IH DAILY Tiotropium [place] [Spiriva] 18 mcg IH DAILY 04/26/19 Anemia: No Asthma: Yes (copd) Cancer: Yes (bladder) Cardiac Disorders: Yes (UT 2007, stents 2008) CVA: No COPD: Yes (uses 02 3l prn) CHF: No Dementia: No Diabetes: No (pre diabetic) GI Disorders: No Disorders: Yes (turbt) HTN: Yes Hypercholesterolemia: No Liver Disease: No Seizures: No Thyroid Disease: No - Surgical History Abdominal Surgery: No Appendectomy: No Cardiac Surgery: Yes (STENTS 2008) Cholecystectomy: No Lung Surgery: No Neurologic Surgery: No Orthopedic Surgery: Yes (GANGLION CYST) - Immunization History Immunization Up to Date: Yes - Psycho Social/Smoking Cessation Hx Smoking History: Current every day smoker Have you smoked in the past 12 months: Yes Number of Cigarettes Smoked Daily: 40 Information on smoking cessation initiated: Yes 'Breaking Loose' booklet given: 04/20/18 Hx Alcohol Use: No Drug/Substance Use Hx: No Substance Use Type: None Hx Substance Use Treatment: No Review of Systems - Review of Systems Constitutional: No: Chills, Fever HEENTM: No: Eye Pain, Nose Pain, Nose Congestion, Throat Pain, Mouth Pain Respiratory: Yes: Cough, Shortness of Breath Cardiac (ROS): No: Chest Pain, Palpitations, Syncope ABD/GI: No: Abdominal Distended, Constipated, Diarrhea, Nausea, Vomiting : No: Burning, Dysuria, Hematuria Musculoskeletal: No: Back Pain, Joint Pain Integumentary: No: Bruising, Flushing, Lesions Neurological: No: Headache, Seizure, Tingling Psychiatric: No: Anxiety, Depression Endocrine: No: Excessive Sweating, Flushing, Intolerance to Cold, Intolerance to Heat Hematologic/Lymphatic: No: Anemia, Blood Clots *Physical Exam - Vital Signs Last Vital Signs Temp Pulse Resp BP Pulse Ox 67 24 H 90/39 L 89 L 10/03/19 09:58 10/03/19 09:58 10/03/19 09:58 10/03/19 09:58 - Physical Exam General Appearance: Yes: Nourished, Appropriately Dressed, Mild Distress, Thin HEENT: positive: EOMI, EVELIN, Normal Voice, Hearing Grossly Normal. negative: Scleral Icterus (R), Scleral Icterus (L), Nasal Congestion, Rhinorrhea Respiratory/Chest: positive: Decreased Breath Sounds, Wheezing. negative: Chest Tender, Crackles, Rales, Rhonchi, Stridor Cardiovascular: positive: Regular Rhythm, Regular Rate, S1, S2. negative: Edema , Murmur Gastrointestinal/Abdominal: positive: Normal Bowel Sounds, Flat, Soft. negative : Tender, Organomegaly, Hernia, Mass Musculoskeletal: negative: CVA Tenderness (R), CVA Tenderness (L) Extremity: positive: Delayed Capillary Refill. negative: Swelling Integumentary: positive: Normal Color, Dry Neurologic: positive: Fully Oriented, Alert, Normal Response, Responsive. negative: Sensory Deficit, Confused, Disoriented ED Treatment Course - LABORATORY CBC & Chemistry Diagram: 10/03/19 11:06 10/03/19 11:06 Medical Decision Making - Medical Decision Making 10/03/19 11:47 sepsis labs duonebs x2, solumedrol, 30mL/kg EKG irregular sinus rhythm, LVH, HR 74, QTc 472, no ST changes --- 74yF w PMHx bladder CA, HTN, CAD, COPD (baseline 3-4L NC) presents with SOB, white productive cough 4d. Has sepsis 2/2 UTI (dx on UA) and COPD exacerbation ( decreased breath sounds, wheezing, respiratory acidosis on VBG). Given 30ml/kg NS, duonebsx2, solumedrol, vanc, zosyn. Titrated O2 down to 6L NC (O2sat 89%). No evidence of PNA (clear lungs) vs ACS (neg trop, no ST changes) vs flu (neg) Repeat BP 124/49 Admitted to m/s Dr Gutiérrez for sepsis 2/2 UTI, COPD exacerbation requiring increased O2 Consulted Dr Luca murphy regarding increased O2 Discharge - Discharge Information Problems reviewed: Yes Clinical Impression/Diagnosis: Sepsis Qualifiers: Sepsis type: sepsis due to unspecified organism Sepsis acute organ dysfunction status: with acute organ dysfunction Severe sepsis acute organ dysfunction type : acute respiratory failure Acute respiratory failure type: with hypercapnia Severe sepsis shock status: without septic shock Qualified Code(s): A41.9 - Sepsis, unspecified organism UTI (urinary tract infection) Qualifiers: Urinary tract infection type: acute cystitis Hematuria presence: without hematuria Qualified Code(s): N30.00 - Acute cystitis without hematuria COPD (chronic obstructive pulmonary disease) Qualifiers: COPD type: COPD with acute exacerbation Qualified Code(s): J44.1 - Chronic obstructive pulmonary disease with (acute) exacerbation - Follow up/Referral - Patient Discharge Instructions - Post Discharge Activity
[2019-10-03] MEDS ORDERED: SODIUM CHLORIDE IV ONE (10:36)
[2019-10-03] MEDS ORDERED: ALBUTEROL SO4 2.5/IPRATROPIUM 0.5 INH SOL 3 ML VIAL.NEB. NEB ONE ×3 (10:37→11:44)
[2019-10-03] MEDS ORDERED: HYDROCORTISONE SOD SUCCINATE 100 MG/2 ML VIAL IVPUSH ONE (10:38)
--- NOTE | 2019-10-03 10:53 | PDOC ---
Documentation entered by Lissy Quick SCRIBE, acting as scribe for Reinier Sosa MD. Reinier Sosa MD: This documentation has been prepared by the Ynes marx Brenda, SCRIBE, under my direction and personally reviewed by me in its entirety. I confirm that the documentation accurately reflects all work, treatment, procedures, and medical decision making performed by me. Attending Attestation - Resident Resident Name: Reinier Sosa - ED Attending Attestation I have performed the following: I have examined & evaluated the patient, The case was reviewed & discussed with the resident, I agree w/resident's findings & plan, Exceptions are as noted - HPI HPI: 10/03/19 10:39 74y F hx of hx of bladder ca, htn, cad, copd (baseline o2 of 3-4L) presents with worsening sob/cough, was noted to be hypoxic to 64% at Dr. Staples office - pt notes increased cough productive of whitish sputum but denies any fever/ chills, chest pain, abd pain, n/v, diaphoresis, leg swelling, orthopnea. Pt endorses decreased appetitie recently. Pt not on steroids at baseline. has been using her nebs at home with some improvement of her respiratory status. Denies CP, Fever, and Vomiting. Allergies: NKDA Social History: Current Tobacco Use PCP: Dr. Gutiérrez Physicial Exam: GENERAL: The patient is awake, alert, and fully oriented, Nontoxic - in no acute distress. cachectic HEAD: Normocephalic, atraumatic. EYES: extraocular movements intact, sclera anicteric, conjunctiva clear. ENT: Normal voice, dry mucous membranes. NECK: Normal range of motion, supple LUNGS: decreased breath sounds, no acute respiratory distress HEART: Regular rate and rhythm, normal S1 and S2 without murmur, rub or gallop. ABDOMEN: Soft, nontender, No guarding, no rebound. No CVA tenderness EXTREMITIES: Normal range of motion, no edema. Neg homans, no calf tenderness NEUROLOGICAL: No facial assymetry, Normal speech, moving all 4 extremities spontnaoeusly and symmetrically PSYCH: Normal mood, normal affect. SKIN: Warm, Dry, normal turgor, Suspect possible COPD exacerbation consider possible pneumonia, influenza, ACS Will obtain blood work will reassess - Physicial Exam PE: 10/07/19 10:22 see above - Medical Decision Making pts labs reviewed noted for copd exacerbation - no focal infiltrate on cx will admit for furthe management Heart Score/ECG Review - ECG Impressions Comment:: 10/03/19 10:51 Twelve-lead EKG was performed and reviewed by me. There is normal sinus rhythm with a normal rate. Rate of 74 LVH with repolarization
[2019-10-03] MEDS ORDERED: VANCOMYCIN 1 GM in D5W (PRE-DOCKED) 1,000 MG/250 ML IVPB ONE (11:09)
[2019-10-03] MEDS ORDERED: PIPERACILLIN/TAZOB 4.5 GM 4.5 GM in DEXTROSE 5%-WATER 100 ML IVPB ONE (11:09)
[2019-10-03] MEDS ORDERED: methylPREDNISolone NA SUCC 125 MG/2 ML VIAL ONE (11:17)
[2019-10-03] MEDS ORDERED: PIPERACILLIN/TAZOB 4.5 GM 4.5 GM/100 ML BAG IVPB ONE (11:17)
[2019-10-03 11:23] LABS: BASO % 0.6 % (0-2.0); EOS % 0.6 % (0-4.5); HEMATOCRIT 40.3 % (32.4-45.2); HEMOGLOBIN 12.8 GM/dL (10.7-15.3); LYMPH % 8.2 % (8-40); MCH 28.4 pg (25.7-33.7); MCHC 31.8 g/dl (32.0-36.0); MEAN CELL VOLUME 89.3 fl (80-96); MEAN PLT VOLUME 7.8 fl (7.5-11.1); MONO % 5.5 % (3.8-10.2); NEUT % 85.1 % (42.8-82.8); PLATELET COUNT 235 K/MM3 (134-434); RBC 4.51 M/mm3 (3.60-5.2); RDW 17.4 % (11.6-15.6); WHITE BLOOD COUNT 13.2 K/mm3 (4.0-10.0)
[2019-10-03 11:27] LABS: VENOUS PO2 < 49 mmHg (28-48)
[2019-10-03 11:29] LABS: VENOUS PC02 87.5 mmHg (38-52)
[2019-10-03 11:47] LABS: INR 0.88 (0.83-1.09); PROTHROMBIN TIME (PATIENT) 10.4 SEC (9.7-13.0)
[2019-10-03 11:50] LABS: ALBUMIN 3.6 g/dl (3.4-5.0); BILIRUBIN,TOTAL 0.7 mg/dL (0.2-1); BLOOD UREA NITROGEN 22.3 mg/dL (7-18); CALCIUM 9.2 mg/dL (8.5-10.1); CREATININE 1.1 mg/dL (0.55-1.3); TOT PROT 6.4 g/dl (6.4-8.2)
[2019-10-03 12:12] LABS: EPI CELLS 1.9 /HPF (0-5/HPF); HYALINE CASTS 14 /lpf (0-8); PH,URINE 5.5 (5.0-8.0); URINE APPEARANCE CLOUDY; URINE BACTERIA 48.9 /hpf (NEGATIVE); URINE BILIRUBIN NEGATIVE (NEGATIVE); URINE COLOR YELLOW; URINE GLUCOSE (UA) NEGATIVE (NEGATIVE); URINE KETONE NEGATIVE (NEGATIVE); URINE LEUK ESTERASE 2+ (NEGATIVE); URINE NITRITE NEGATIVE (NEGATIVE); URINE PROTEIN 1+ (NEGATIVE); URINE UROBILINOGEN 0.2 mg/dL (0.2-1.0); URINE WBC 36 /hpf (0-5)
[2019-10-03 14:44] LABS: URINE RBC 7.6 /hpf (0-4)
[2019-10-03] MEDS: ALBUTEROL SO4 2.5/IPRATROPIUM 0.5 INH SOL 3 ML VIAL.NEB. NEB SCH ×2 (18:41→20:40)
[2019-10-03] MEDS: ATORVASTATIN CA 80 MG TABLET (FP) PO SCH (22:43)
[2019-10-03] MEDS: ALPRAZolam 0.25 MG TABLET PO SCH (22:43)
[2019-10-03] MEDS: HEPARIN NA (PORCINE) 5,000 UNITS/ML 1ML VIAL SQ SCH (22:44)
[2019-10-03] MEDS ORDERED: PT OWN MED DRAWER 7, Y5N ONE (23:07)
[2019-10-04] MEDS: methylPREDNISolone NA SUCC 40 MG/1 ML VIAL IVPUSH SCH ×3 (01:56→18:14)
[2019-10-04] MEDS: ALBUTEROL SO4 2.5/IPRATROPIUM 0.5 INH SOL 3 ML VIAL.NEB. NEB SCH ×4 (07:35→20:15)
--- NOTE | 2019-10-04 07:36 | HP ---
Admitting History and Physical - Primary Care Physician PCP: Khanh Gutiérrez - Admission Chief Complaint: SEVERE DYSPNEA History of Present Illness: 74 Y/O FEMALE H/O COPD +TOBACCO USE, AORTIC/ABD ANEURYSM F/U WITH DR ROSS, SENT FROM MY OFFICE FOR DYSPNEA WITH 02 SAT 72% ON 2L NC PORTABLE 02. History Source: Patient - Past Medical History Cardiovascular: Yes: CAD, Hyperlipdemia Pulmonary: Yes: COPD Renal/: Yes: Renal Inusuff, Other (bladder cancer) Heme/Onc: Yes: Other (bladder cancer) - Smoking History Smoking history: Current every day smoker Have you smoked in the past 12 months: Yes Aproximately how many cigarettes per day: 3 - Alcohol/Substance Use Hx Alcohol Use: No - Social History ADL: Independent History of Recent Travel: No Home Medications - Allergies Allergies/Adverse Reactions: Allergies Allergy/AdvReac Type Severity Reaction Status Date / Time No Known Drug Allergies Allergy Verified 10/03/19 09:50 - Home Medications Home Medications: Ambulatory Orders Amlodipine Besylate 5 mg PO DAILY 05/08/16 Losartan Potassium 100 mg PO DAILY 05/08/16 Clopidogrel Bisulfate [Plavix -] 75 mg PO DAILY #0 05/12/16 Atorvastatin Ca [Lipitor] 80 mg PO HS tablet 11/03/16 Lactobacillus Acidophilus [Bacid -] 1 tab PO BID #60 tab 11/03/16 Albuterol 2.5/Ipratropium 0.5 [Duoneb -] 1 amp NEB RQID amp 04/26/18 Alprazolam [Xanax] 0.25 mg PO BID #20 tablet MDD 2 04/26/18 Tiotropium Br/Olodaterol HCl [Stiolto Respimat Inhal [place]] 2 puff IH DAILY Tiotropium [place] [Spiriva] 18 mcg IH DAILY 04/26/19 Review of Systems - Review of Systems Constitutional: reports: Lethargy, Weakness Eyes: reports: No Symptoms HENT: reports: No Symptoms Neck: reports: No Symptoms Cardiovascular: reports: Shortness of Breath Respiratory: reports: Orthopnea, SOB, SOB on Exertion Gastrointestinal: reports: No Symptoms Genitourinary: reports: No Symptoms Musculoskeletal: reports: Muscle Weakness Neurological: reports: No Symptoms Endocrine: reports: No Symptoms Hematology/Lymphatic: reports: No Symptoms Psychiatric: reports: No Symptoms Physical Examination Vital Signs: Vital Signs Temperature 98.3 F 10/04/19 07:18 Pulse Rate 64 10/04/19 07:18 Respiratory Rate 20 10/04/19 07:18 Blood Pressure 139/64 10/04/19 07:18 O2 Sat by Pulse Oximetry (%) 89 L 10/03/19 21:00 Constitutional: Yes: Severe Distress Cardiovascular: Yes: Tachycardia Respiratory: Yes: Diminished, On Venti-Mask, Poor Air Entry Gastrointestinal: Yes: WNL Renal/: Yes: WNL Musculoskeletal: Yes: Muscle Weakness Edema: No Imaging - Results X-ray: Report Reviewed Problem List - Problems (1) COPD (chronic obstructive pulmonary disease) Code(s): J44.9 - CHRONIC OBSTRUCTIVE PULMONARY DISEASE, UNSPECIFIED Qualifiers: COPD type: COPD with acute exacerbation Qualified Code(s): J44.1 - Chronic obstructive pulmonary disease with (acute) exacerbation (2) UTI (urinary tract infection) Code(s): N39.0 - URINARY TRACT INFECTION, SITE NOT SPECIFIED Qualifiers: Urinary tract infection type: acute cystitis Hematuria presence: without hematuria Qualified Code(s): N30.00 - Acute cystitis without hematuria (3) Acute on chronic respiratory failure with hypercapnia Code(s): J96.22 - ACUTE AND CHRONIC RESPIRATORY FAILURE WITH HYPERCAPNIA (4) Acute on chronic respiratory failure with hypoxia and hypercapnia Code(s): J96.21 - ACUTE AND CHRONIC RESPIRATORY FAILURE WITH HYPOXIA; J96.22 - ACUTE AND CHRONIC RESPIRATORY FAILURE WITH HYPERCAPNIA (5) Anxiety Code(s): F41.9 - ANXIETY DISORDER, UNSPECIFIED (6) Bladder cancer Code(s): C67.9 - MALIGNANT NEOPLASM OF BLADDER, UNSPECIFIED (7) CAD (coronary artery disease) Code(s): I25.10 - ATHSCL HEART DISEASE OF [place] CORONARY ARTERY W/O ANG PCTRS (8) Chronic diastolic CHF (congestive heart failure) Code(s): I50.32 - CHRONIC DIASTOLIC (CONGESTIVE) HEART FAILURE (9) Dyspnea Code(s): R06.00 - DYSPNEA, UNSPECIFIED (10) ESBL (extended spectrum beta-lactamase) producing bacteria infection Code(s): A49.9 - BACTERIAL INFECTION, UNSPECIFIED; Z16.12 - EXTENDED SPECTRUM BETA LACTAMASE (ESBL) RESISTANCE (11) HTN (hypertension) Code(s): I10 - ESSENTIAL (PRIMARY) HYPERTENSION (12) Thoracic aortic aneurysm Code(s): I71.2 - THORACIC AORTIC ANEURYSM, WITHOUT RUPTURE (13) Tobacco abuse Code(s): Z72.0 - TOBACCO USE Assessment/Plan IV STEROIDS/RESP SUPPORT/NEBS/02 2L DVT PROPHYLAXIS OOB TO CHAIR PULM AND CARDIO EVAL SMOKING CESSATION PPI/GI PROPHYLAXIS MAY NEED SNF FOR PULM REHAB
[2019-10-04 07:41] LABS: BASO % 0.2 % (0-2.0); HEMATOCRIT 33.7 % (32.4-45.2); HEMOGLOBIN 11.2 GM/dL (10.7-15.3); LYMPH % 4.5 % (8-40); MCH 28.9 pg (25.7-33.7); MCHC 33.1 g/dl (32.0-36.0); MEAN CELL VOLUME 87.3 fl (80-96); MEAN PLT VOLUME 8.1 fl (7.5-11.1); MONO % 1.3 % (3.8-10.2); PLATELET COUNT 189 K/MM3 (134-434); RBC 3.87 M/mm3 (3.60-5.2); WHITE BLOOD COUNT 10.7 K/mm3 (4.0-10.0)
[2019-10-04 08:03] LABS: BILIRUBIN,TOTAL 0.7 mg/dL (0.2-1); BLOOD UREA NITROGEN 23.6 mg/dL (7-18); CALCIUM 8.5 mg/dL (8.5-10.1); CREATININE 0.9 mg/dL (0.55-1.3); MAGNESIUM 2.4 mg/dL (1.8-2.4); POTASSIUM 3.9 mmol/L (3.5-5.1); TOT PROT 5.5 g/dl (6.4-8.2)
[2019-10-04] MEDS ORDERED: TIOTROPIUM/OLODATEROL HCL (STIOLTO) 4 GM INHALER IH SCH (10:00)
[2019-10-04] MEDS: LOSARTAN POTASSIUM 50 MG TABLET (FP) PO SCH (10:05)
[2019-10-04] MEDS: ALPRAZolam 0.25 MG TABLET PO SCH ×2 (10:05→22:15)
[2019-10-04] MEDS: HEPARIN NA (PORCINE) 5,000 UNITS/ML 1ML VIAL SQ SCH ×2 (10:05→22:15)
[2019-10-04] MEDS: PANTOPRAZOLE 20 MG TABLET (FP) PO SCH (10:05)
[2019-10-04] MEDS: CLOPIDOGREL BISULFATE 75 MG TABLET (FP) PO SCH (10:05)
[2019-10-04] MEDS: amLODIPine BESYLATE 5 MG TABLET (FP) PO SCH (10:05)
[2019-10-04 10:17] LABS: ANISOCYTOSIS 0; MACROCYTOSIS 0; PLATELET ESTIMATE NORMAL
--- NOTE | 2019-10-04 11:02 | CON.PULM ---
Consult Consult Specialty:: PULMONARY Referred by:: GIULIA Reason for Consultation:: COPD/O2 DEPENDANT - History of Present Illness Chief Complaint: CHRONIC SOB/[place]/ACTIVE SMOKER History of Present Illness: 74yF w PMHx bladder CA, HTN, CAD,PCI STENT on plavix, End stage COPD (3-4L NC baseline), active 1/2 pack/day smoker (turns off o2 smokes cigarette then turns o2 back on) presents with SOB, white productive cough for 4days. Noted to be hypoxic to 64% at Dr. Gutiérrez's office. Used nebs with some temporary relief at home. Has diminished appetite with increased thirst. - History Source History Provided By: Patient, Medical Record Limitations to Obtaining History: No Limitations - Past Medical History COLLAR SEWER: No: Alzheimer's Cardio/Vascular: Yes: CAD, Hyperlipdemia, Other (pci stent) Pulmonary: Yes: COPD Gastrointestinal: No: Ascites Hepatobiliary: No: Cirrhosis Renal/: Yes: Renal Inusuff, Other (bladder cancer) Reproductive: Yes: Postmenopausal ...: No Heme/Onc: Yes: Anemia Infectious Disease: No: AIDS Psych: Yes: Addictions (nicotine) - Alcohol/Substance Use Hx Alcohol Use: No - Smoking History Smoking history: Current every day smoker Have you smoked in the past 12 months: Yes Aproximately how many cigarettes per day: 3 - Social History ADL: Independent Place of : [facility] History of Recent Travel: No Home Medications - Allergies Allergies/Adverse Reactions: Allergies Allergy/AdvReac Type Severity Reaction Status Date / Time No Known Drug Allergies Allergy Verified 10/03/19 09:50 - Home Medications Home Medications: Ambulatory Orders Amlodipine Besylate 5 mg PO DAILY 05/08/16 Losartan Potassium 100 mg PO DAILY 05/08/16 Clopidogrel Bisulfate [Plavix -] 75 mg PO DAILY #0 05/12/16 Atorvastatin Ca [Lipitor] 80 mg PO HS tablet 11/03/16 Lactobacillus Acidophilus [Bacid -] 1 tab PO BID #60 tab 11/03/16 Albuterol 2.5/Ipratropium 0.5 [Duoneb -] 1 amp NEB RQID amp 04/26/18 Alprazolam [Xanax] 0.25 mg PO BID #20 tablet MDD 2 04/26/18 Tiotropium Br/Olodaterol HCl [Stiolto Respimat Inhal [place]] 2 puff IH DAILY Tiotropium [place] [Spiriva] 18 mcg IH DAILY 04/26/19 Family Medical History Family History: Unremarkable Review of Systems - Review of Systems Constitutional: reports: Lethargy, Loss of Appetite, Unintentional Wgt. Loss, Weakness. denies: Fever Eyes: reports: No Symptoms HENT: reports: No Symptoms Neck: reports: No Symptoms Cardiovascular: reports: Shortness of Breath. denies: Chest Pain Respiratory: reports: Cough, Exercise Intolerance, SOB, SOB on Exertion. denies : Hemoptysis, Wheezing Gastrointestinal: reports: Other (anorexia) Genitourinary: reports: No Symptoms Breasts: reports: No Symptoms Reported Musculoskeletal: reports: No Symptoms Physical Exam Vital Sings: Vital Signs Temperature 98.3 F 10/04/19 07:18 Pulse Rate 64 10/04/19 07:18 Respiratory Rate 20 10/04/19 07:18 Blood Pressure 139/64 10/04/19 07:18 O2 Sat by Pulse Oximetry (%) 89 L 10/03/19 21:00 Constitutional: Yes: Anxious Eyes: Yes: EOM Intact HENT: Yes: Normocephalic Neck: Yes: Trachea Midline Cardiovascular: Yes: S1, S2 Respiratory: Yes: Diminished Gastrointestinal: Yes: Normal Bowel Sounds, Soft Edema: No Labs: CBC, BMP 10/04/19 06:50 10/04/19 06:50 Imaging - Results Chest X-ray: Report Reviewed, Image Reviewed Cat Scan: Report Reviewed, Image Reviewed Problem List - Problems (1) COPD (chronic obstructive pulmonary disease) Code(s): J44.9 - CHRONIC OBSTRUCTIVE PULMONARY DISEASE, UNSPECIFIED Qualifiers: COPD type: COPD with acute exacerbation Qualified Code(s): J44.1 - Chronic obstructive pulmonary disease with (acute) exacerbation (2) ASHD (arteriosclerotic heart disease) Code(s): I25.10 - ATHSCL HEART DISEASE OF [place] CORONARY ARTERY W/O ANG PCTRS (3) Acute on chronic respiratory failure with hypoxia and hypercapnia Code(s): J96.21 - ACUTE AND CHRONIC RESPIRATORY FAILURE WITH HYPOXIA; J96.22 - ACUTE AND CHRONIC RESPIRATORY FAILURE WITH HYPERCAPNIA (4) Anxiety Code(s): F41.9 - ANXIETY DISORDER, UNSPECIFIED (5) Bladder cancer Code(s): C67.9 - MALIGNANT NEOPLASM OF BLADDER, UNSPECIFIED (6) DVT prophylaxis Code(s): [id number] - (7) Dyspnea Code(s): R06.00 - DYSPNEA, UNSPECIFIED (8) Thoracic aortic aneurysm Code(s): I71.2 - THORACIC AORTIC ANEURYSM, WITHOUT RUPTURE (9) Tobacco abuse Code(s): Z72.0 - TOBACCO USE (10) Weight loss Code(s): R63.4 - ABNORMAL WEIGHT LOSS Assessment/Plan END STAGE O2 DEPENDANT COPD IN AN ACTIVE SMOKER DUONEB/ICS/LABA/SOLUMEDROL/O2/ WOULD SUGGEST DALIRESP/SMOKING CESSATION/ CONSIDER ZITHROMAX QOD AN OUTPATIENT WILL FOLLOW Supirya CARLSON MD
[2019-10-04] MEDS ORDERED: BUDESONIDE/FORMETEROL FUMARATE 160/4.5 mcg INHALER IH ONE (11:05)
--- NOTE | 2019-10-04 11:57 | PN ---
Progress Note (short form) - Note Progress Note: ID CONSULT DICTATED ACUTE EXACERBATION COPD OBSERVE OFF ANTIBIOTICS
--- NOTE | 2019-10-04 12:10 | EKG ---
Test Reason : Blood Pressure : / mmHG Vent. Rate : 074 BPM Atrial Rate : 074 BPM P-R Int : 136 ms QRS Dur : 094 ms QT Int : 426 ms P-R-T Axes : 105 -09 118 degrees QTc Int : 472 ms POOR DATA QUALITY, INTERPRETATION MAY BE ADVERSELY AFFECTED SINUS RHYTHM WITH MARKED SINUS ARRHYTHMIA LEFT VENTRICULAR HYPERTROPHY WITH REPOLARIZATION ABNORMALITY ABNORMAL ECG WHEN COMPARED WITH ECG OF 26-APR-2019 17:37, NONSPECIFIC T WAVE ABNORMALITY NO LONGER EVIDENT IN INFERIOR LEADS T WAVE INVERSION LESS EVIDENT IN LATERAL LEADS Confirmed by MD Magalis, Gurjit ([id number]) on 10/04/2019 12:09:51 PM Referred By: Confirmed By:Gurjit Blancas MD
--- NOTE | 2019-10-04 12:39 | CON.CARD ---
Cardiology Consult (text) - Consultation Consultation Note: Cardiology Consult (text) - Consultation Consultation Note: Consultation Note: Chief Complaint: sob, cough History of Present Illness: 74 yo female here for sob, cough. Complains of sob, cough, yellow sputum for last few days. Seen in Dr. Gutiérrez's office with O2 sat 64%, referred to ER, treating for COPD exac. No chest pain, dizziness, palps, edema. Sees dr wnyne for cardio. Smokes 1/2 ppd. On O2 at home for COPD. PMH: anxiety disorder +cigs--active, not interested in cessation HTN HPL - Past Medical History ...: No - Alcohol/Substance Use Hx Alcohol Use: No - Smoking History Smoking history: Current every day smoker Have you smoked in the past 12 months: Yes Aproximately how many cigarettes per day: 20 Allergies Allergy/AdvReac Type Severity Reaction Status Date / Time No Known Drug Allergies Allergy Verified 10/03/19 09:50 Ambulatory Orders Amlodipine Besylate 5 mg PO DAILY 05/08/16 Losartan Potassium 100 mg PO DAILY 05/08/16 Clopidogrel Bisulfate [Plavix -] 75 mg PO DAILY #0 05/12/16 Atorvastatin Ca [Lipitor] 80 mg PO HS tablet 11/03/16 Lactobacillus Acidophilus [Bacid -] 1 tab PO BID #60 tab 11/03/16 Albuterol 2.5/Ipratropium 0.5 [Duoneb -] 1 amp NEB RQID amp 04/26/18 Alprazolam [Xanax] 0.25 mg PO BID #20 tablet MDD 2 04/26/18 Tiotropium Br/Olodaterol HCl [Stiolto Respimat Inhal [place]] 2 puff IH DAILY Tiotropium Reasnor [Spiriva] 18 mcg IH DAILY 04/26/19 Family Disease History - Family Disease History Family History: Denies (no cmp) Review of Systems - Review of Systems Constitutional: denies: Chills, Fever Eyes: denies: Eye Pain HENT: denies: Nasal Congestion Neck: denies: Stiffness Cardiovascular: denies: Palpitations Respiratory: denies: Orthopnea, PND Gastrointestinal: denies: Diarrhea, Rectal Bleeding Genitourinary: denies: Burning, Hematuria Musculoskeletal: denies: Muscle Pain Integumentary: denies: Rash Neurological: denies: Numbness, Seizure, Syncope Endocrine: denies: Excessive Sweating Hematology/Lymphatic: denies: Excessive Bleeding Vital Signs Period Temp Pulse Resp BP Sys/Lock Pulse Ox Last 24 Hr 98.1 F-98.5 F 64-100 18-22 122-147/52-74 89-92 Constitutional: Yes: Well Nourished, No Distress Eyes: No: Sclera Icterus HENT: No: Nasal Congestion Neck: No: Decreased ROM Respiratory: Yes: CTA Bilaterally, scattered rhonchi, wheezes. No: Accessory Muscle Use, Rales Gastrointestinal: Yes: Normal Bowel Sounds. No: Distention, Hepatomegaly, Palpable Mass, Tenderness Cardiovascular: Yes: Regular Rate and Rhythm JVD: No Carotid Bruit: No PMI: Non-Displaced Heart Sounds: Yes: S1, S2. No: Gallop Murmur: No: Systolic Murmur, Diastolic Murmur Extremities: No: Cold, Cyanosis Edema: No Peripheral Pulses: 2+ Left Carotid, 2+ Right Carotid, 2+ Left Doralis Pedis, 2+ Right Dorsalis Pedis Integumentary: No: Jaundice Neurological: Yes: Alert, Oriented (x3) Psychiatric: No: Agitated Laboratory Last Values WBC 10.7 K/mm3 (4.0-10.0) H 10/04/19 06:50 RBC 3.87 M/mm3 (3.60-5.2) 10/04/19 06:50 Hgb 11.2 GM/dL (10.7-15.3) 10/04/19 06:50 Hct 33.7 % (32.4-45.2) D 10/04/19 06:50 MCV 87.3 fl (80-96) 10/04/19 06:50 MCH 28.9 pg (25.7-33.7) 10/04/19 06:50 MCHC 33.1 g/dl (32.0-36.0) 10/04/19 06:50 RDW 17.0 % (11.6-15.6) H 10/04/19 06:50 Plt Count 189 K/MM3 (134-434) 10/04/19 06:50 MPV 8.1 fl (7.5-11.1) 10/04/19 06:50 Absolute Neuts (auto) 10.1 K/mm3 (1.5-8.0) H 10/04/19 06:50 Neutrophils % 94.0 % (42.8-82.8) H 10/04/19 06:50 Neutrophils % (Manual) 87.0 % (42.8-82.8) H 10/04/19 06:50 Band Neutrophils % 5.0 % 10/04/19 06:50 Lymphocytes % 4.5 % (8-40) L D 10/04/19 06:50 Lymphocytes % (Manual) 7.0 % (8-40) L 10/04/19 06:50 Monocytes % 1.3 % (3.8-10.2) L 10/04/19 06:50 Monocytes % (Manual) 1 % (3.8-10.2) L 10/04/19 06:50 Eosinophils % 0.0 % (0-4.5) D 10/04/19 06:50 Eosinophils % (Manual) 0.0 % (0-4.5) D 10/04/19 06:50 Basophils % 0.2 % (0-2.0) 10/04/19 06:50 Basophils % (Manual) 0.0 % (0-2.0) 10/04/19 06:50 Myelocytes % (Man) 0 % (0-2) 10/04/19 06:50 Promyelocytes % (Man) 0 % (0-2) 10/04/19 06:50 Blast Cells % (Manual) 0 % (0-0) 10/04/19 06:50 Nucleated RBC % 0 % (0-0) 10/04/19 06:50 Metamyelocytes 0 % (0-2) 10/04/19 06:50 Hypochromia 0 10/04/19 06:50 Platelet Estimate Normal 10/04/19 06:50 Polychromasia 0 10/04/19 06:50 Poikilocytosis 1+ 10/04/19 06:50 Anisocytosis 0 10/04/19 06:50 Microcytosis 0 10/04/19 06:50 Macrocytosis 0 10/04/19 06:50 Schistocytes 1+ 10/04/19 06:50 PT with INR 10.40 SEC (9.7-13.0) 10/03/19 11:12 INR 0.88 (0.83-1.09) 10/03/19 11:12 PTT (Actin FS) 28.0 SECONDS (25.2-36.5) 10/03/19 11:12 VBG pH 7.30 (7.31-7.41) L 10/03/19 11:06 POC VBG pCO2 87.5 mmHg (38-52) H* 10/03/19 11:06 POC VBG pO2 < 49 mmHg (28-48) H 10/03/19 11:06 VBG HCO3 41.9 mmol/L (23-29) H 10/03/19 11:06 VBG O2 Sat (Rosaline) 24.0 % (70-80) L 10/03/19 11:06 VBG Base Excess 11.9 meq/l (-2-2) H 10/03/19 11:06 Sodium 140 mmol/L (136-145) 10/04/19 06:50 Potassium 3.9 mmol/L (3.5-5.1) 10/04/19 06:50 Chloride 101 mmol/L (98-107) 10/04/19 06:50 Carbon Dioxide 36 mmol/L (21-32) H 10/04/19 06:50 Anion Gap 4 MMOL/L (8-16) L 10/04/19 06:50 BUN 23.6 mg/dL (7-18) H 10/04/19 06:50 Creatinine 0.9 mg/dL (0.55-1.3) 10/04/19 06:50 Est GFR (CKD-EPI)AfAm 73.52 10/04/19 06:50 Est GFR (CKD-EPI)NonAf 63.43 10/04/19 06:50 POC Glucometer 138 UNITS (80-120) 10/04/19 06:51 Random Glucose 129 mg/dL (74-106) H 10/04/19 06:50 Lactic Acid 1.5 mmol/L (0.4-2.0) 10/03/19 11:06 Calcium 8.5 mg/dL (8.5-10.1) 10/04/19 06:50 Magnesium 2.4 mg/dL (1.8-2.4) 10/04/19 06:50 Total Bilirubin 0.7 mg/dL (0.2-1) 10/04/19 06:50 AST 23 U/L (15-37) 10/04/19 06:50 ALT 20 U/L (13-61) 10/04/19 06:50 Alkaline Phosphatase 56 U/L (45-117) 10/04/19 06:50 Troponin I 0.03 ng/ml (0.00-0.05) 10/03/19 11:06 Total Protein 5.5 g/dl (6.4-8.2) L 10/04/19 06:50 Albumin 3.0 g/dl (3.4-5.0) L 10/04/19 06:50 Thyroxine (T4) 9.3 ug/dl (4.5-13.9) 10/04/19 06:50 Urine Color Yellow 10/03/19 12:00 Urine Appearance Cloudy 10/03/19 12:00 Urine pH 5.5 (5.0-8.0) 10/03/19 12:00 Ur Specific [place] 1.020 (1.010-1.035) 10/03/19 12:00 Urine Protein 1+ (NEGATIVE) H 10/03/19 12:00 Urine Glucose (UA) Negative (NEGATIVE) 10/03/19 12:00 Urine Ketones Negative (NEGATIVE) 10/03/19 12:00 Urine Blood Trace (NEGATIVE) 10/03/19 12:00 Urine Nitrite Negative (NEGATIVE) 10/03/19 12:00 Urine Bilirubin Negative (NEGATIVE) 10/03/19 12:00 Urine Urobilinogen 0.2 mg/dL (0.2-1.0) 10/03/19 12:00 Ur Leukocyte Esterase 2+ (NEGATIVE) H 10/03/19 12:00 Urine WBC (Auto) 36 /hpf (0-5) 10/03/19 12:00 Urine RBC (Auto) 7.6 /hpf (0-4) 10/03/19 12:00 Urine Casts (Auto) 14 /lpf (0-8) 10/03/19 12:00 U Epithel Cells (Auto) 1.9 /HPF (0-5/HPF) 10/03/19 12:00 Urine Bacteria (Auto) 48.9 /hpf (NEGATIVE) 10/03/19 12:00 Urine Yeast (Auto) none seen (NEGATIVE) 10/03/19 12:00 Influenza A (Rapid) Negative (Negative) 10/03/19 12:14 Influenza B (Rapid) Negative (Negative) 10/03/19 12:14 cxr: no chf ecg: sinus arrhythmia, LVH with repol, no ischemic changes echo 03/2016: tds, mild dec lvef, nl rv, no sig valve path echo 04/2019: nl lv, rv tds, no sig valve path Assessment/Plan sob, cough, copd: - manage per pulm, on IV steroids, nebs, abx chronic CAD, remote pci, w/o angina: -mult prior stents (prox and mid LAD, entire RCA and RPDA) all patent on cath 2013 -no angina (chronic sob with chest pressure is copd sx--present prior to cath and unchanged since) -no signs acs -cont aspirin, plavix, statin, arb chronic diast chf -borderline depressed LVEF (45% on v-gram, 50% echo 2015) with moderately incr' d LVEDP at cath (24) -never clinical chf, no sob response to trial of lasix in past -appears euvolemic, CXR no congestion -no diuretics at this point HTN: -known bp lability from anxiety at times -stable, cont home meds HPL: -cont home statin +cigs: -previously counselled on cessation many times, not interested in quitting descending thoracic aortic aneurysm: -3.[address] chest 04/2019 -cont bp control - outpatient follow up for monitoring
[2019-10-04] MEDS: ATORVASTATIN CA 80 MG TABLET (FP) PO SCH (22:15)
[2019-10-05] MEDS: methylPREDNISolone NA SUCC 40 MG/1 ML VIAL IVPUSH SCH ×3 (02:05→18:03)
[2019-10-05] MEDS: ALBUTEROL SO4 2.5/IPRATROPIUM 0.5 INH SOL 3 ML VIAL.NEB. NEB SCH ×4 (07:45→20:36)
--- NOTE | 2019-10-05 09:57 | PN ---
Progress Note (short form) - Note Progress Note: Resting in bed in NAD on NC O2. Reports breathing feels better today. Less SOB and cough. No acute events overnight. Intake & Output 10/02/19 10/03/19 10/04/19 10/05/19 23:59 23:59 23:59 23:59 Intake Total 450 250 Balance 450 250 Weight 92 lb 9.6 oz Last Vital Signs Temp Pulse Resp BP Pulse Ox 97.9 F 66 20 146/64 91 L 10/05/19 06:57 10/05/19 06:57 10/05/19 06:57 10/05/19 06:57 10/04/19 22:00 Active Medications Albuterol/Ipratropium (Duoneb -) 1 amp NEB RQID [facility] Last Admin: 10/05/19 07:45 Dose: 1 amp Alprazolam (Xanax -) 0.25 mg PO BID [facility] Last Admin: 10/04/19 22:15 Dose: 0.25 mg Amlodipine Besylate (Norvasc -) 5 mg PO DAILY [facility] Last Admin: 10/04/19 10:05 Dose: 5 mg Atorvastatin Calcium (Lipitor -) 80 mg PO HS [facility] Last Admin: 10/04/19 22:15 Dose: 80 mg Clopidogrel Bisulfate (Plavix -) 75 mg PO DAILY [facility] Last Admin: 10/04/19 10:05 Dose: 75 mg Heparin Sodium (Porcine) (Heparin -) 5,000 unit SQ BID [facility] Last Admin: 10/04/19 22:15 Dose: Not Given Losartan Potassium (Cozaar -) 100 mg PO DAILY [facility] Last Admin: 10/04/19 10:05 Dose: 100 mg Methylprednisolone Sodium Succinate (Solu-Medrol -) 40 mg IVPUSH Q8H-IV [facility] Last Admin: 10/05/19 02:05 Dose: 40 mg Pantoprazole Sodium (Protonix -) 20 mg PO DAILY [facility] Last Admin: 10/04/19 10:05 Dose: 20 mg Constitutional: Yes: Awake and alert, NAD Eyes: Yes: EOM Intact HENT: Yes: Normocephalic Neck: Yes: Trachea Midline Cardiovascular: Yes: S1, S2 Respiratory: Yes: Few scattered rhonchi and expiratory wheezes, Diminished at the bases Gastrointestinal: Yes: Normal Bowel Sounds, Soft Edema: No Labs: Laboratory Results - last 24 hr 10/04/19 10/04/19 06:50 22:16 Neutrophils % (Manual) 87.0 H Band Neutrophils % 5.0 Lymphocytes % (Manual) 7.0 L Monocytes % (Manual) 1 L Eosinophils % (Manual) 0.0 D Basophils % (Manual) 0.0 Myelocytes % (Man) 0 Promyelocytes % (Man) 0 Blast Cells % (Manual) 0 Nucleated RBC % 0 Metamyelocytes 0 Hypochromia 0 Platelet Estimate Normal Polychromasia 0 Poikilocytosis 1+ Anisocytosis 0 Microcytosis 0 Macrocytosis 0 Schistocytes 1+ POC Glucometer 190 Problem List - Problems (1) COPD (chronic obstructive pulmonary disease) Code(s): J44.9 - CHRONIC OBSTRUCTIVE PULMONARY DISEASE, UNSPECIFIED Qualifiers: COPD type: COPD with acute exacerbation Qualified Code(s): J44.1 - Chronic obstructive pulmonary disease with (acute) exacerbation (2) ASHD (arteriosclerotic heart disease) Code(s): I25.10 - ATHSCL HEART DISEASE OF [place] CORONARY ARTERY W/O ANG PCTRS (3) Acute on chronic respiratory failure with hypoxia and hypercapnia Code(s): J96.21 - ACUTE AND CHRONIC RESPIRATORY FAILURE WITH HYPOXIA; J96.22 - ACUTE AND CHRONIC RESPIRATORY FAILURE WITH HYPERCAPNIA (4) Anxiety Code(s): F41.9 - ANXIETY DISORDER, UNSPECIFIED (5) Bladder cancer Code(s): C67.9 - MALIGNANT NEOPLASM OF BLADDER, UNSPECIFIED (6) DVT prophylaxis Code(s): [id number] - (7) Dyspnea Code(s): R06.00 - DYSPNEA, UNSPECIFIED (8) Thoracic aortic aneurysm Code(s): I71.2 - THORACIC AORTIC ANEURYSM, WITHOUT RUPTURE (9) Tobacco abuse Code(s): Z72.0 - TOBACCO USE (10) Weight loss Code(s): R63.4 - ABNORMAL WEIGHT LOSS Assessment/Plan END STAGE O2 DEPENDANT COPD IN AN ACTIVE SMOKER DUONEB SOLUMEDROL SUPPLEMENTAL O2 NEEDED CAN START DALIRESP & ZITHROMAX QOD AN OUTPATIENT SMOKING CESSATION DISCUSSED DR EDWARDS
[2019-10-05] MEDS: LOSARTAN POTASSIUM 50 MG TABLET (FP) PO SCH (10:23)
[2019-10-05 11:15] VITALS: BMI 17.9
--- NOTE | 2019-10-05 11:40 | PN ---
Progress Note (short form) - Note Progress Note: s: sob improving, no chest pain, palps, dizziness Vital Signs Period Temp Pulse Resp BP Sys/Lock Pulse Ox Last 24 Hr 97.5 F-98.2 F 65-80 20-20 112-152/51-64 88-91 Constitutional: Yes: Well Nourished, No Distress Eyes: No: Sclera Icterus HENT: No: Nasal Congestion Neck: No: Decreased ROM Respiratory: Yes: CTA Bilaterally, scattered rhonchi, wheezes. No: Accessory Muscle Use, Rales Gastrointestinal: Yes: Normal Bowel Sounds. No: Distention, Hepatomegaly, Palpable Mass, Tenderness Cardiovascular: Yes: Regular Rate and Rhythm JVD: No Carotid Bruit: No PMI: Non-Displaced Heart Sounds: Yes: S1, S2. No: Gallop Murmur: No: Systolic Murmur, Diastolic Murmur Extremities: No: Cold, Cyanosis Edema: No Peripheral Pulses: 2+ Left Carotid, 2+ Right Carotid, 2+ Left Doralis Pedis, 2+ Right Dorsalis Pedis Integumentary: No: Jaundice Neurological: Yes: Alert, Oriented (x3) Psychiatric: No: Agitated Laboratory Last Values WBC 10.7 K/mm3 (4.0-10.0) H 10/04/19 06:50 RBC 3.87 M/mm3 (3.60-5.2) 10/04/19 06:50 Hgb 11.2 GM/dL (10.7-15.3) 10/04/19 06:50 Hct 33.7 % (32.4-45.2) D 10/04/19 06:50 MCV 87.3 fl (80-96) 10/04/19 06:50 MCH 28.9 pg (25.7-33.7) 10/04/19 06:50 MCHC 33.1 g/dl (32.0-36.0) 10/04/19 06:50 RDW 17.0 % (11.6-15.6) H 10/04/19 06:50 Plt Count 189 K/MM3 (134-434) 10/04/19 06:50 MPV 8.1 fl (7.5-11.1) 10/04/19 06:50 Absolute Neuts (auto) 10.1 K/mm3 (1.5-8.0) H 10/04/19 06:50 Neutrophils % 94.0 % (42.8-82.8) H 10/04/19 06:50 Neutrophils % (Manual) 87.0 % (42.8-82.8) H 10/04/19 06:50 Band Neutrophils % 5.0 % 10/04/19 06:50 Lymphocytes % 4.5 % (8-40) L D 10/04/19 06:50 Lymphocytes % (Manual) 7.0 % (8-40) L 10/04/19 06:50 Monocytes % 1.3 % (3.8-10.2) L 10/04/19 06:50 Monocytes % (Manual) 1 % (3.8-10.2) L 10/04/19 06:50 Eosinophils % 0.0 % (0-4.5) D 10/04/19 06:50 Eosinophils % (Manual) 0.0 % (0-4.5) D 10/04/19 06:50 Basophils % 0.2 % (0-2.0) 10/04/19 06:50 Basophils % (Manual) 0.0 % (0-2.0) 10/04/19 06:50 Myelocytes % (Man) 0 % (0-2) 10/04/19 06:50 Promyelocytes % (Man) 0 % (0-2) 10/04/19 06:50 Blast Cells % (Manual) 0 % (0-0) 10/04/19 06:50 Nucleated RBC % 0 % (0-0) 10/04/19 06:50 Metamyelocytes 0 % (0-2) 10/04/19 06:50 Hypochromia 0 10/04/19 06:50 Platelet Estimate Normal 10/04/19 06:50 Polychromasia 0 10/04/19 06:50 Poikilocytosis 1+ 10/04/19 06:50 Anisocytosis 0 10/04/19 06:50 Microcytosis 0 10/04/19 06:50 Macrocytosis 0 10/04/19 06:50 Schistocytes 1+ 10/04/19 06:50 PT with INR 10.40 SEC (9.7-13.0) 10/03/19 11:12 INR 0.88 (0.83-1.09) 10/03/19 11:12 PTT (Actin FS) 28.0 SECONDS (25.2-36.5) 10/03/19 11:12 VBG pH 7.30 (7.31-7.41) L 10/03/19 11:06 POC VBG pCO2 87.5 mmHg (38-52) H* 10/03/19 11:06 POC VBG pO2 < 49 mmHg (28-48) H 10/03/19 11:06 VBG HCO3 41.9 mmol/L (23-29) H 10/03/19 11:06 VBG O2 Sat (Rosaline) 24.0 % (70-80) L 10/03/19 11:06 VBG Base Excess 11.9 meq/l (-2-2) H 10/03/19 11:06 Sodium 140 mmol/L (136-145) 10/04/19 06:50 Potassium 3.9 mmol/L (3.5-5.1) 10/04/19 06:50 Chloride 101 mmol/L (98-107) 10/04/19 06:50 Carbon Dioxide 36 mmol/L (21-32) H 10/04/19 06:50 Anion Gap 4 MMOL/L (8-16) L 10/04/19 06:50 BUN 23.6 mg/dL (7-18) H 10/04/19 06:50 Creatinine 0.9 mg/dL (0.55-1.3) 10/04/19 06:50 Est GFR (CKD-EPI)AfAm 73.52 10/04/19 06:50 Est GFR (CKD-EPI)NonAf 63.43 10/04/19 06:50 POC Glucometer 190 UNITS (80-120) 10/04/19 22:16 Random Glucose 129 mg/dL (74-106) H 10/04/19 06:50 Lactic Acid 1.5 mmol/L (0.4-2.0) 10/03/19 11:06 Calcium 8.5 mg/dL (8.5-10.1) 10/04/19 06:50 Magnesium 2.4 mg/dL (1.8-2.4) 10/04/19 06:50 Total Bilirubin 0.7 mg/dL (0.2-1) 10/04/19 06:50 AST 23 U/L (15-37) 10/04/19 06:50 ALT 20 U/L (13-61) 10/04/19 06:50 Alkaline Phosphatase 56 U/L (45-117) 10/04/19 06:50 Troponin I 0.03 ng/ml (0.00-0.05) 10/03/19 11:06 Total Protein 5.5 g/dl (6.4-8.2) L 10/04/19 06:50 Albumin 3.0 g/dl (3.4-5.0) L 10/04/19 06:50 Thyroxine (T4) 9.3 ug/dl (4.5-13.9) 10/04/19 06:50 Urine Color Yellow 10/03/19 12:00 Urine Appearance Cloudy 10/03/19 12:00 Urine pH 5.5 (5.0-8.0) 10/03/19 12:00 Ur Specific [place] 1.020 (1.010-1.035) 10/03/19 12:00 Urine Protein 1+ (NEGATIVE) H 10/03/19 12:00 Urine Glucose (UA) Negative (NEGATIVE) 10/03/19 12:00 Urine Ketones Negative (NEGATIVE) 10/03/19 12:00 Urine Blood Trace (NEGATIVE) 10/03/19 12:00 Urine Nitrite Negative (NEGATIVE) 10/03/19 12:00 Urine Bilirubin Negative (NEGATIVE) 10/03/19 12:00 Urine Urobilinogen 0.2 mg/dL (0.2-1.0) 10/03/19 12:00 Ur Leukocyte Esterase 2+ (NEGATIVE) H 10/03/19 12:00 Urine WBC (Auto) 36 /hpf (0-5) 10/03/19 12:00 Urine RBC (Auto) 7.6 /hpf (0-4) 10/03/19 12:00 Urine Casts (Auto) 14 /lpf (0-8) 10/03/19 12:00 U Epithel Cells (Auto) 1.9 /HPF (0-5/HPF) 10/03/19 12:00 Urine Bacteria (Auto) 48.9 /hpf (NEGATIVE) 10/03/19 12:00 Urine Yeast (Auto) none seen (NEGATIVE) 10/03/19 12:00 Influenza A (Rapid) Negative (Negative) 10/03/19 12:14 Influenza B (Rapid) Negative (Negative) 10/03/19 12:14 cxr: no chf ecg: sinus arrhythmia, LVH with repol, no ischemic changes echo 03/2016: tds, mild dec lvef, nl rv, no sig valve path echo 04/2019: nl lv, rv tds, no sig valve path Assessment/Plan sob, cough, copd: - manage per pulm, on IV steroids, nebs, abx chronic CAD, remote pci, w/o angina: -mult prior stents (prox and mid LAD, entire RCA and RPDA) all patent on cath 2013 -no angina (chronic sob with chest pressure is copd sx--present prior to cath and unchanged since) -no signs acs -cont aspirin, plavix, statin, arb chronic diast chf -borderline depressed LVEF (45% on v-gram, 50% echo 2015) with moderately incr' d LVEDP at cath (24) -never clinical chf, no sob response to trial of lasix in past -appears euvolemic, CXR no congestion -no diuretics at this point HTN: -known bp lability from anxiety at times -stable, cont home meds HPL: -cont home statin +cigs: -previously counselled on cessation many times, not interested in quitting descending thoracic aortic aneurysm: -3.[address] chest 04/2019 -cont bp control - outpatient follow up for monitoring
[2019-10-05] MEDS: PANTOPRAZOLE 20 MG TABLET (FP) PO SCH (12:23)
[2019-10-05] MEDS: amLODIPine BESYLATE 5 MG TABLET (FP) PO SCH (12:23)
[2019-10-05] MEDS: ALPRAZolam 0.25 MG TABLET PO SCH ×2 (12:24→21:12)
[2019-10-05] MEDS: CLOPIDOGREL BISULFATE 75 MG TABLET (FP) PO SCH (12:24)
[2019-10-05] MEDS: HEPARIN NA (PORCINE) 5,000 UNITS/ML 1ML VIAL SQ SCH ×2 (12:25→21:13)
--- NOTE | 2019-10-05 12:53 | PN ---
Progress Note, Physician Chief Complaint: Shortness of breath - Current Medication List Current Medications: Active Medications Albuterol/Ipratropium (Duoneb -) 1 amp NEB RQID [facility] Last Admin: 10/05/19 11:45 Dose: 1 amp Alprazolam (Xanax -) 0.25 mg PO BID [facility] Last Admin: 10/05/19 12:24 Dose: 0.25 mg Amlodipine Besylate (Norvasc -) 5 mg PO DAILY [facility] Last Admin: 10/05/19 12:23 Dose: 5 mg Atorvastatin Calcium (Lipitor -) 80 mg PO HS [facility] Last Admin: 10/04/19 22:15 Dose: 80 mg Clopidogrel Bisulfate (Plavix -) 75 mg PO DAILY [facility] Last Admin: 10/05/19 12:24 Dose: 75 mg Heparin Sodium (Porcine) (Heparin -) 5,000 unit SQ BID [facility] Last Admin: 10/05/19 12:25 Dose: 5,000 unit Losartan Potassium (Cozaar -) 100 mg PO DAILY [facility] Last Admin: 10/05/19 10:23 Dose: 100 mg Methylprednisolone Sodium Succinate (Solu-Medrol -) 40 mg IVPUSH Q8H-IV [facility] Last Admin: 10/05/19 12:23 Dose: 40 mg Pantoprazole Sodium (Protonix -) 20 mg PO DAILY [facility] Last Admin: 10/05/19 12:23 Dose: 20 mg - Objective Vital Signs: Vital Signs Temperature 97.9 F 10/05/19 06:57 Pulse Rate 66 10/05/19 06:57 Respiratory Rate 20 10/05/19 06:57 Blood Pressure 146/64 10/05/19 06:57 O2 Sat by Pulse Oximetry (%) 91 L 10/04/19 22:00 Constitutional: Yes: Well Nourished, No Distress, Calm Labs: CBC, BMP 10/04/19 06:50 10/04/19 06:50 INR, PTT INR 0.88 (0.83-1.09) 10/03/19 11:12 Problem List - Problems (1) Acute on chronic respiratory failure with hypoxia and hypercapnia Assessment/Plan: -Seen by Pulmonary -Medrol tapering dose -bronchodilators -Nasal o2 PRN to keep SpO2>90% Problems reviewed: Yes Code(s): J96.21 - ACUTE AND CHRONIC RESPIRATORY FAILURE WITH HYPOXIA; J96.22 - ACUTE AND CHRONIC RESPIRATORY FAILURE WITH HYPERCAPNIA (2) CAD (coronary artery disease) Assessment/Plan: -Seen by Cardiology -mult prior stents (prox and mid LAD, entire RCA and RPDA) all patent on cath 2013 -no angina (chronic sob with chest pressure is copd sx--present prior to cath and unchanged since) -no signs acs -cont aspirin, plavix, statin, arb Problems reviewed: Yes Code(s): I25.10 - ATHSCL HEART DISEASE OF [place] CORONARY ARTERY W/O ANG PCTRS (3) COPD exacerbation Problems reviewed: Yes Code(s): J44.1 - CHRONIC OBSTRUCTIVE PULMONARY DISEASE W (ACUTE) EXACERBATION (4) Diastolic CHF Assessment/Plan: -borderline depressed LVEF (45% on v-gram, 50% echo 2015) with moderately incr' d LVEDP at cath (24) -never clinical chf, no sob response to trial of lasix in past -appears euvolemic, CXR no congestion -no diuretics at this point Code(s): I50.30 - UNSPECIFIED DIASTOLIC (CONGESTIVE) HEART FAILURE Assessment/Plan See problem list
[2019-10-05] MEDS: ATORVASTATIN CA 80 MG TABLET (FP) PO SCH (21:12)
[2019-10-06] MEDS: methylPREDNISolone NA SUCC 40 MG/1 ML VIAL IVPUSH SCH ×3 (02:10→18:07)
[2019-10-06] MEDS: ALBUTEROL SO4 2.5/IPRATROPIUM 0.5 INH SOL 3 ML VIAL.NEB. NEB SCH ×4 (08:19→20:18)
--- NOTE | 2019-10-06 09:27 | PN ---
Progress Note, Physician Chief Complaint: AWAKE ALERT FEELING BETTER APPETITE IMPROVED - Current Medication List Current Medications: Active Medications Albuterol/Ipratropium (Duoneb -) 1 amp NEB RQID [facility] Last Admin: 10/06/19 08:19 Dose: 1 amp Alprazolam (Xanax -) 0.25 mg PO BID [facility] Last Admin: 10/05/19 21:12 Dose: 0.25 mg Amlodipine Besylate (Norvasc -) 5 mg PO DAILY [facility] Last Admin: 10/05/19 12:23 Dose: 5 mg Atorvastatin Calcium (Lipitor -) 80 mg PO HS [facility] Last Admin: 10/05/19 21:12 Dose: 80 mg Clopidogrel Bisulfate (Plavix -) 75 mg PO DAILY [facility] Last Admin: 10/05/19 12:24 Dose: 75 mg Heparin Sodium (Porcine) (Heparin -) 5,000 unit SQ BID [facility] Last Admin: 10/05/19 21:13 Dose: 5,000 unit Losartan Potassium (Cozaar -) 100 mg PO DAILY [facility] Last Admin: 10/05/19 10:23 Dose: 100 mg Methylprednisolone Sodium Succinate (Solu-Medrol -) 40 mg IVPUSH Q8H-IV [facility] Last Admin: 10/06/19 02:10 Dose: 40 mg Pantoprazole Sodium (Protonix -) 20 mg PO DAILY [facility] Last Admin: 10/05/19 12:23 Dose: 20 mg - Objective Vital Signs: Vital Signs Temperature 98.1 F 10/06/19 06:00 Pulse Rate 68 10/06/19 06:00 Respiratory Rate 20 10/06/19 06:00 Blood Pressure 148/66 10/06/19 06:00 O2 Sat by Pulse Oximetry (%) 90 L 10/05/19 22:00 Constitutional: Yes: Mild Distress Cardiovascular: Yes: Pulse Irregular Respiratory: Yes: Diminished, On Nasal O2 Gastrointestinal: Yes: Soft Genitourinary: Yes: WNL Musculoskeletal: Yes: Muscle Weakness Labs: CBC, BMP 10/04/19 06:50 10/04/19 06:50 INR, PTT INR 0.88 (0.83-1.09) 10/03/19 11:12 Problem List - Problems (1) COPD (chronic obstructive pulmonary disease) Code(s): J44.9 - CHRONIC OBSTRUCTIVE PULMONARY DISEASE, UNSPECIFIED Qualifiers: COPD type: COPD with acute exacerbation Qualified Code(s): J44.1 - Chronic obstructive pulmonary disease with (acute) exacerbation (2) UTI (urinary tract infection) Code(s): N39.0 - URINARY TRACT INFECTION, SITE NOT SPECIFIED Qualifiers: Urinary tract infection type: acute cystitis Hematuria presence: without hematuria Qualified Code(s): N30.00 - Acute cystitis without hematuria (3) Acute on chronic respiratory failure with hypercapnia Code(s): J96.22 - ACUTE AND CHRONIC RESPIRATORY FAILURE WITH HYPERCAPNIA (4) Acute on chronic respiratory failure with hypoxia and hypercapnia Code(s): J96.21 - ACUTE AND CHRONIC RESPIRATORY FAILURE WITH HYPOXIA; J96.22 - ACUTE AND CHRONIC RESPIRATORY FAILURE WITH HYPERCAPNIA (5) Anxiety Code(s): F41.9 - ANXIETY DISORDER, UNSPECIFIED (6) Bladder cancer Code(s): C67.9 - MALIGNANT NEOPLASM OF BLADDER, UNSPECIFIED (7) CAD (coronary artery disease) Code(s): I25.10 - ATHSCL HEART DISEASE OF [place] CORONARY ARTERY W/O ANG PCTRS (8) Chronic diastolic CHF (congestive heart failure) Code(s): I50.32 - CHRONIC DIASTOLIC (CONGESTIVE) HEART FAILURE (9) Dyspnea Code(s): R06.00 - DYSPNEA, UNSPECIFIED (10) ESBL (extended spectrum beta-lactamase) producing bacteria infection Code(s): A49.9 - BACTERIAL INFECTION, UNSPECIFIED; Z16.12 - EXTENDED SPECTRUM BETA LACTAMASE (ESBL) RESISTANCE (11) HTN (hypertension) Code(s): I10 - ESSENTIAL (PRIMARY) HYPERTENSION (12) Thoracic aortic aneurysm Code(s): I71.2 - THORACIC AORTIC ANEURYSM, WITHOUT RUPTURE (13) Tobacco abuse Code(s): Z72.0 - TOBACCO USE Assessment/Plan IV STEROIDS/RESP SUPPORT/NEBS/02 2L DVT PROPHYLAXIS OOB TO CHAIR PULM AND CARDIO EVAL SMOKING CESSATION PPI/GI PROPHYLAXIS MAY NEED SNF FOR PULM REHAB
--- NOTE | 2019-10-06 10:34 | PN ---
Progress Note (short form) - Note Progress Note: s: sob improving (at baseline), no chest pain, palps, dizziness Vital Signs Period Temp Pulse Resp BP Sys/Lock Pulse Ox Last 24 Hr 97.8 F-98.2 F 68-85 20-20 110-152/62-78 89-90 Constitutional: Yes: Well Nourished, No Distress Eyes: No: Sclera Icterus HENT: No: Nasal Congestion Neck: No: Decreased ROM Respiratory: Yes: CTA Bilaterally, scattered rhonchi, wheezes. No: Accessory Muscle Use, Rales Gastrointestinal: Yes: Normal Bowel Sounds. No: Distention, Hepatomegaly, Palpable Mass, Tenderness Cardiovascular: Yes: Regular Rate and Rhythm JVD: No Carotid Bruit: No PMI: Non-Displaced Heart Sounds: Yes: S1, S2. No: Gallop Murmur: No: Systolic Murmur, Diastolic Murmur Extremities: No: Cold, Cyanosis Edema: No Peripheral Pulses: 2+ Left Carotid, 2+ Right Carotid, 2+ Left Doralis Pedis, 2+ Right Dorsalis Pedis Integumentary: No: Jaundice Neurological: Yes: Alert, Oriented (x3) Psychiatric: No: Agitated cxr: no chf ecg: sinus arrhythmia, LVH with repol, no ischemic changes echo 03/2016: tds, mild dec lvef, nl rv, no sig valve path echo 04/2019: nl lv, rv tds, no sig valve path Assessment/Plan sob, cough, copd: - manage per pulm, on IV steroids, nebs, abx chronic CAD, remote pci, w/o angina: -mult prior stents (prox and mid LAD, entire RCA and RPDA) all patent on cath 2013 -no angina (chronic sob with chest pressure is copd sx--present prior to cath and unchanged since) -no signs acs -cont aspirin, plavix, statin, arb chronic diast chf -borderline depressed LVEF (45% on v-gram, 50% echo 2015) with moderately incr' d LVEDP at cath (24) -never clinical chf, no sob response to trial of lasix in past -appears euvolemic, CXR no congestion -no diuretics at this point HTN: -known bp lability from anxiety at times -stable, cont home meds HPL: -cont home statin +cigs: -previously counselled on cessation many times, not interested in quitting descending thoracic aortic aneurysm: -3.[address] chest 04/2019 -cont bp control - outpatient follow up for monitoring
[2019-10-06] MEDS: ALPRAZolam 0.25 MG TABLET PO SCH ×2 (11:39→22:18)
[2019-10-06] MEDS: amLODIPine BESYLATE 5 MG TABLET (FP) PO SCH (11:39)
[2019-10-06] MEDS: PANTOPRAZOLE 20 MG TABLET (FP) PO SCH (11:39)
[2019-10-06] MEDS: CLOPIDOGREL BISULFATE 75 MG TABLET (FP) PO SCH (11:39)
[2019-10-06] MEDS: HEPARIN NA (PORCINE) 5,000 UNITS/ML 1ML VIAL SQ SCH ×2 (11:40→22:16)
[2019-10-06] MEDS: LOSARTAN POTASSIUM 50 MG TABLET (FP) PO SCH (11:40)
--- NOTE | 2019-10-06 11:49 | PN ---
Progress Note (short form) - Note Progress Note: PULMONARY Subjective improvement vss/afebrile Constitutional: Yes: Awake and alert, NAD Eyes: Yes: EOM Intact HENT: Yes: Normocephalic Neck: Yes: Trachea Midline Cardiovascular: Yes: S1, S2 Respiratory: Yes: Few scattered rhonchi and expiratory wheezes, Diminished at the bases Gastrointestinal: Yes: Normal Bowel Sounds, Soft Edema: No Labs: noted Problem List - Problems (1) COPD (chronic obstructive pulmonary disease) Code(s): J44.9 - CHRONIC OBSTRUCTIVE PULMONARY DISEASE, UNSPECIFIED Qualifiers: COPD type: COPD with acute exacerbation Qualified Code(s): J44.1 - Chronic obstructive pulmonary disease with (acute) exacerbation (2) ASHD (arteriosclerotic heart disease) Code(s): I25.10 - ATHSCL HEART DISEASE OF [place] CORONARY ARTERY W/O ANG PCTRS (3) Acute on chronic respiratory failure with hypoxia and hypercapnia Code(s): J96.21 - ACUTE AND CHRONIC RESPIRATORY FAILURE WITH HYPOXIA; J96.22 - ACUTE AND CHRONIC RESPIRATORY FAILURE WITH HYPERCAPNIA (4) Anxiety Code(s): F41.9 - ANXIETY DISORDER, UNSPECIFIED (5) Bladder cancer Code(s): C67.9 - MALIGNANT NEOPLASM OF BLADDER, UNSPECIFIED (6) DVT prophylaxis Code(s): [id number] - (7) Dyspnea Code(s): R06.00 - DYSPNEA, UNSPECIFIED (8) Thoracic aortic aneurysm Code(s): I71.2 - THORACIC AORTIC ANEURYSM, WITHOUT RUPTURE (9) Tobacco abuse Code(s): Z72.0 - TOBACCO USE (10) Weight loss Code(s): R63.4 - ABNORMAL WEIGHT LOSS Assessment/Plan END STAGE O2 DEPENDANT COPD IN AN ACTIVE SMOKER DUONEB SOLUMEDROL SUPPLEMENTAL O2 NEEDED CAN START DALIRESP & ZITHROMAX QOD AN OUTPATIENT SMOKING CESSATION KARINE CARLSON MD Problem List - Problems (1) COPD (chronic obstructive pulmonary disease) Code(s): J44.9 - CHRONIC OBSTRUCTIVE PULMONARY DISEASE, UNSPECIFIED Qualifiers: COPD type: COPD with acute exacerbation Qualified Code(s): J44.1 - Chronic obstructive pulmonary disease with (acute) exacerbation (2) ASHD (arteriosclerotic heart disease) Code(s): I25.10 - ATHSCL HEART DISEASE OF [place] CORONARY ARTERY W/O ANG PCTRS (3) Acute on chronic respiratory failure with hypoxia and hypercapnia Code(s): J96.21 - ACUTE AND CHRONIC RESPIRATORY FAILURE WITH HYPOXIA; J96.22 - ACUTE AND CHRONIC RESPIRATORY FAILURE WITH HYPERCAPNIA (4) Anxiety Code(s): F41.9 - ANXIETY DISORDER, UNSPECIFIED (5) Bladder cancer Code(s): C67.9 - MALIGNANT NEOPLASM OF BLADDER, UNSPECIFIED (6) DVT prophylaxis Code(s): [id number] - (7) Dyspnea Code(s): R06.00 - DYSPNEA, UNSPECIFIED (8) Thoracic aortic aneurysm Code(s): I71.2 - THORACIC AORTIC ANEURYSM, WITHOUT RUPTURE (9) Tobacco abuse Code(s): Z72.0 - TOBACCO USE (10) Weight loss Code(s): R63.4 - ABNORMAL WEIGHT LOSS
[2019-10-06] MEDS: ATORVASTATIN CA 80 MG TABLET (FP) PO SCH (22:18)
[2019-10-07] MEDS: methylPREDNISolone NA SUCC 40 MG/1 ML VIAL IVPUSH SCH ×3 (01:51→21:36)
[2019-10-07] MEDS ORDERED: INSULIN (NOVOLOG) ASPART 100 UNITS/ML 10ML VIAL ONE ×3 (06:07→20:50)
[2019-10-07] MEDS: INSULIN SLIDING SCALE (NOVOLOG) 1 VIAL SQ SCH ×2 (06:11→16:50)
[2019-10-07] MEDS: ALBUTEROL SO4 2.5/IPRATROPIUM 0.5 INH SOL 3 ML VIAL.NEB. NEB SCH ×4 (07:45→20:35)
[2019-10-07] MEDS ORDERED: PT OWN MED DRAWER 7, Y5N ONE (09:57)
[2019-10-07] MEDS: amLODIPine BESYLATE 5 MG TABLET (FP) PO SCH (09:59)
[2019-10-07] MEDS: ALPRAZolam 0.25 MG TABLET PO SCH ×2 (09:59→21:36)
[2019-10-07] MEDS: LOSARTAN POTASSIUM 50 MG TABLET (FP) PO SCH (09:59)
[2019-10-07] MEDS: PANTOPRAZOLE 20 MG TABLET (FP) PO SCH (09:59)
[2019-10-07] MEDS: CLOPIDOGREL BISULFATE 75 MG TABLET (FP) PO SCH (09:59)
[2019-10-07] MEDS: HEPARIN NA (PORCINE) 5,000 UNITS/ML 1ML VIAL SQ SCH ×2 (10:00→21:36)
--- NOTE | 2019-10-07 10:59 | PN ---
Progress Note, Physician Chief Complaint: AWAKE SITTING UP IN A CHAIR EATING COMFORTABLE ON 3L NC 02 - Current Medication List Current Medications: Active Medications Albuterol/Ipratropium (Duoneb -) 1 amp NEB RQID [facility] Last Admin: 10/07/19 07:45 Dose: 1 amp Alprazolam (Xanax -) 0.25 mg PO BID [facility] Last Admin: 10/07/19 09:59 Dose: 0.25 mg Amlodipine Besylate (Norvasc -) 5 mg PO DAILY [facility] Last Admin: 10/07/19 09:59 Dose: 5 mg Atorvastatin Calcium (Lipitor -) 80 mg PO HS [facility] Last Admin: 10/06/19 22:18 Dose: 80 mg Clopidogrel Bisulfate (Plavix -) 75 mg PO DAILY [facility] Last Admin: 10/07/19 09:59 Dose: 75 mg Heparin Sodium (Porcine) (Heparin -) 5,000 unit SQ BID [facility] Last Admin: 10/07/19 10:00 Dose: 5,000 unit Insulin Aspart (Novolog Vial Sliding Scale -) [facility]; Protocol Last Admin: 10/07/19 06:11 Dose: Not Given Losartan Potassium (Cozaar -) 100 mg PO DAILY [facility] Last Admin: 10/07/19 09:59 Dose: 100 mg Methylprednisolone Sodium Succinate (Solu-Medrol -) 40 mg IVPUSH Q8H-IV [facility] Last Admin: 10/07/19 09:59 Dose: 40 mg Pantoprazole Sodium (Protonix -) 20 mg PO DAILY [facility] Last Admin: 10/07/19 09:59 Dose: 20 mg - Objective Vital Signs: Vital Signs Temperature 97.8 F 10/07/19 06:00 Pulse Rate 71 10/07/19 06:00 Respiratory Rate 20 10/07/19 06:00 Blood Pressure 146/72 10/07/19 06:00 O2 Sat by Pulse Oximetry (%) 89 L 10/06/19 22:00 Constitutional: Yes: Mild Distress Eyes: Yes: WNL HENT: Yes: WNL Neck: Yes: WNL Cardiovascular: Yes: Pulse Irregular Respiratory: Yes: Diminished, On Nasal O2 Gastrointestinal: Yes: Soft Genitourinary: Yes: WNL Musculoskeletal: Yes: Muscle Weakness Edema: LLE: Trace, RLE: Trace Labs: CBC, BMP 10/04/19 06:50 10/04/19 06:50 INR, PTT INR 0.88 (0.83-1.09) 10/03/19 11:12 Problem List - Problems (1) COPD (chronic obstructive pulmonary disease) Code(s): J44.9 - CHRONIC OBSTRUCTIVE PULMONARY DISEASE, UNSPECIFIED Qualifiers: COPD type: COPD with acute exacerbation Qualified Code(s): J44.1 - Chronic obstructive pulmonary disease with (acute) exacerbation (2) UTI (urinary tract infection) Code(s): N39.0 - URINARY TRACT INFECTION, SITE NOT SPECIFIED Qualifiers: Urinary tract infection type: acute cystitis Hematuria presence: without hematuria Qualified Code(s): N30.00 - Acute cystitis without hematuria (3) Acute on chronic respiratory failure with hypercapnia Code(s): J96.22 - ACUTE AND CHRONIC RESPIRATORY FAILURE WITH HYPERCAPNIA (4) Acute on chronic respiratory failure with hypoxia and hypercapnia Code(s): J96.21 - ACUTE AND CHRONIC RESPIRATORY FAILURE WITH HYPOXIA; J96.22 - ACUTE AND CHRONIC RESPIRATORY FAILURE WITH HYPERCAPNIA (5) Anxiety Code(s): F41.9 - ANXIETY DISORDER, UNSPECIFIED (6) Bladder cancer Code(s): C67.9 - MALIGNANT NEOPLASM OF BLADDER, UNSPECIFIED (7) CAD (coronary artery disease) Code(s): I25.10 - ATHSCL HEART DISEASE OF [place] CORONARY ARTERY W/O ANG PCTRS (8) Chronic diastolic CHF (congestive heart failure) Code(s): I50.32 - CHRONIC DIASTOLIC (CONGESTIVE) HEART FAILURE (9) Dyspnea Code(s): R06.00 - DYSPNEA, UNSPECIFIED (10) ESBL (extended spectrum beta-lactamase) producing bacteria infection Code(s): A49.9 - BACTERIAL INFECTION, UNSPECIFIED; Z16.12 - EXTENDED SPECTRUM BETA LACTAMASE (ESBL) RESISTANCE (11) HTN (hypertension) Code(s): I10 - ESSENTIAL (PRIMARY) HYPERTENSION (12) Thoracic aortic aneurysm Code(s): I71.2 - THORACIC AORTIC ANEURYSM, WITHOUT RUPTURE (13) Tobacco abuse Code(s): Z72.0 - TOBACCO USE Assessment/Plan CONTINUE 02 NC, WILL WEAN DOWN TO 2 L OVER THE WEEKEND, PATIENT LOOKS BETTER. IV STEROID TAPER NEBS AGREE WITH PULMONARY CONSULT DALIRESP/AZITHRO/PREDNISONE FOR OUTPATIENT CHRONIC THERAPY. PT EVAL WOULD BENEFIT FROM SNF/PULM THERAPY
--- NOTE | 2019-10-07 12:56 | PN ---
Progress Note (short form) - Note Progress Note: Reports breathing feels better today. Less SOB and cough. No acute events overnight. Intake & Output 10/04/19 10/05/19 10/06/19 10/07/19 23:59 23:59 23:59 23:59 Intake Total 450 450 111 Balance 450 450 111 Weight 92 lb 93 lb 4.8 oz 96 lb 14.4 oz Last Vital Signs Temp Pulse Resp BP Pulse Ox 98.2 F 85 20 133/96 92 L 10/07/19 09:45 10/07/19 09:45 10/07/19 09:45 10/07/19 09:45 10/07/19 09:00 Active Medications Albuterol/Ipratropium (Duoneb -) 1 amp NEB RQID [facility] Last Admin: 10/07/19 11:45 Dose: 1 amp Alprazolam (Xanax -) 0.25 mg PO BID [facility] Last Admin: 10/07/19 09:59 Dose: 0.25 mg Amlodipine Besylate (Norvasc -) 5 mg PO DAILY [facility] Last Admin: 10/07/19 09:59 Dose: 5 mg Atorvastatin Calcium (Lipitor -) 80 mg PO HS [facility] Last Admin: 10/06/19 22:18 Dose: 80 mg Clopidogrel Bisulfate (Plavix -) 75 mg PO DAILY [facility] Last Admin: 10/07/19 09:59 Dose: 75 mg Heparin Sodium (Porcine) (Heparin -) 5,000 unit SQ BID [facility] Last Admin: 10/07/19 10:00 Dose: 5,000 unit Insulin Aspart (Novolog Vial Sliding Scale -) [facility]; Protocol Last Admin: 10/07/19 06:11 Dose: Not Given Losartan Potassium (Cozaar -) 100 mg PO DAILY [facility] Last Admin: 10/07/19 09:59 Dose: 100 mg Methylprednisolone Sodium Succinate (Solu-Medrol -) 40 mg IVPUSH Q12H [facility] Pantoprazole Sodium (Protonix -) 20 mg PO DAILY [facility] Last Admin: 10/07/19 09:59 Dose: 20 mg Constitutional: Yes: Awake and alert, NAD Eyes: Yes: EOM Intact HENT: Yes: Normocephalic Neck: Yes: Trachea Midline Cardiovascular: Yes: S1, S2 Respiratory: Yes: Few scattered rhonchi and expiratory wheezes, Diminished at the bases Gastrointestinal: Yes: Normal Bowel Sounds, Soft Edema: No Labs: Laboratory Results - last 24 hr 10/06/19 10/06/19 10/07/19 17:16 20:16 06:09 POC Glucometer 255 212 142 10/07/19 11:55 POC Glucometer 120 Problem List - Problems (1) COPD (chronic obstructive pulmonary disease) Code(s): J44.9 - CHRONIC OBSTRUCTIVE PULMONARY DISEASE, UNSPECIFIED Qualifiers: COPD type: COPD with acute exacerbation Qualified Code(s): J44.1 - Chronic obstructive pulmonary disease with (acute) exacerbation (2) ASHD (arteriosclerotic heart disease) Code(s): I25.10 - ATHSCL HEART DISEASE OF [place] CORONARY ARTERY W/O ANG PCTRS (3) Acute on chronic respiratory failure with hypoxia and hypercapnia Code(s): J96.21 - ACUTE AND CHRONIC RESPIRATORY FAILURE WITH HYPOXIA; J96.22 - ACUTE AND CHRONIC RESPIRATORY FAILURE WITH HYPERCAPNIA (4) Anxiety Code(s): F41.9 - ANXIETY DISORDER, UNSPECIFIED (5) Bladder cancer Code(s): C67.9 - MALIGNANT NEOPLASM OF BLADDER, UNSPECIFIED (6) DVT prophylaxis Code(s): [id number] - (7) Dyspnea Code(s): R06.00 - DYSPNEA, UNSPECIFIED (8) Thoracic aortic aneurysm Code(s): I71.2 - THORACIC AORTIC ANEURYSM, WITHOUT RUPTURE (9) Tobacco abuse Code(s): Z72.0 - TOBACCO USE (10) Weight loss Code(s): R63.4 - ABNORMAL WEIGHT LOSS Assessment/Plan END STAGE O2 DEPENDANT COPD IN AN ACTIVE SMOKER DUONEB SOLUMEDROL SUPPLEMENTAL O2 NEEDED CAN START DALIRESP & ZITHROMAX QOD AN OUTPATIENT SMOKING CESSATION DISCUSSED DR EDWARDS
[2019-10-07 13:51] LABS: HEMATOCRIT 41.7 % (32.4-45.2); HEMOGLOBIN 13.2 GM/dL (10.7-15.3); MCH 28.3 pg (25.7-33.7); MCHC 31.6 g/dl (32.0-36.0); MEAN CELL VOLUME 89.7 fl (80-96); MEAN PLT VOLUME 8.7 fl (7.5-11.1); PLATELET COUNT 238 K/MM3 (134-434); RBC 4.65 M/mm3 (3.60-5.2); WHITE BLOOD COUNT 13.6 K/mm3 (4.0-10.0)
--- NOTE | 2019-10-07 14:03 | PN ---
Progress Note (short form) - Note Progress Note: s: sob improving (at baseline), no chest pain, palps, dizziness Vital Signs Period Temp Pulse Resp BP Sys/Lock Pulse Ox Last 24 Hr 97.8 F-98.6 F 69-87 20-22 133-158/70-96 89-92 Constitutional: Yes: Well Nourished, No Distress Eyes: No: Sclera Icterus HENT: No: Nasal Congestion Neck: No: Decreased ROM Respiratory: Yes: CTA Bilaterally, scattered rhonchi, wheezes. No: Accessory Muscle Use, Rales Gastrointestinal: Yes: Normal Bowel Sounds. No: Distention, Hepatomegaly, Palpable Mass, Tenderness Cardiovascular: Yes: Regular Rate and Rhythm JVD: No Carotid Bruit: No PMI: Non-Displaced Heart Sounds: Yes: S1, S2. No: Gallop Murmur: No: Systolic Murmur, Diastolic Murmur Extremities: No: Cold, Cyanosis Edema: No Peripheral Pulses: 2+ Left Carotid, 2+ Right Carotid, 2+ Left Doralis Pedis, 2+ Right Dorsalis Pedis Integumentary: No: Jaundice Neurological: Yes: Alert, Oriented (x3) Psychiatric: No: Agitated cxr: no chf ecg: sinus arrhythmia, LVH with repol, no ischemic changes echo 03/2016: tds, mild dec lvef, nl rv, no sig valve path echo 04/2019: nl lv, rv tds, no sig valve path Assessment/Plan sob, cough, copd: - manage per pulm, on IV steroids, nebs, abx chronic CAD, remote pci, w/o angina: -mult prior stents (prox and mid LAD, entire RCA and RPDA) all patent on cath 2013 -no angina (chronic sob with chest pressure is copd sx--present prior to cath and unchanged since) -no signs acs -cont aspirin, plavix, statin, arb chronic diast chf -borderline depressed LVEF (45% on v-gram, 50% echo 2015) with moderately incr' d LVEDP at cath (24) -never clinical chf, no sob response to trial of lasix in past -appears euvolemic, CXR no congestion -no diuretics at this point HTN: -known bp lability from anxiety at times -stable, cont home meds HPL: -cont home statin +cigs: -previously counselled on cessation many times, not interested in quitting descending thoracic aortic aneurysm: -3.[address] chest 04/2019 -cont bp control - outpatient follow up for monitoring
[2019-10-07 14:11] LABS: BLOOD UREA NITROGEN 30.9 mg/dL (7-18); CALCIUM 8.5 mg/dL (8.5-10.1); CREATININE 0.8 mg/dL (0.55-1.3); MAGNESIUM 2.2 mg/dL (1.8-2.4); POTASSIUM 3.9 mmol/L (3.5-5.1)
--- NOTE | 2019-10-07 19:00 | CONS ---
DATE OF CONSULTATION: DATE OF DICTATION: 10/04/2019 HISTORY: A 74-year-old female evaluated for possible urinary tract infection. Patient was admitted to the hospital on October 03, 2019 with complaints of shortness of breath, cough productive of white sputum. She was seen as an outpatient by her PMD and was noted to be hypoxemic. She was transferred to the emergency room. In the emergency room, her course was significant for shortness of breath. She was placed on supplemental O2. She was noted to have an elevated white blood cell count as well as pyuria. At the present time, she reports shortness of breath on exertion. She states she has a cough productive of whitish sputum. She denies any chest pain. She denies any urinary tract symptoms. Denies dysuria, hematuria, suprapubic or flank pain. No fever or chills. PAST MEDICAL HISTORY: Positive for bladder cancer. Followed by urology. Hypertension, coronary artery disease, COPD. ALLERGIES: No known allergies. SOCIAL HISTORY: Positive for active tobacco use. SYSTEMS REVIEW: Neurologic: No loss of consciousness, seizure activity, focal weakness. Cardiac: Negative chest pain or palpitations. Respiratory: As per HPI. Gastrointestinal: Negative vomiting or diarrhea. Genitourinary: Positive pyuria and bladder cancer. LABORATORY DATA: White count on admission 13.2, presently 10.7, hematocrit 33.7, platelets 189, creatinine 0.9. Urinalysis 38 white cells. Influenza swab negative. Urine and blood cultures negative. Chest x-ray negative for acute infiltrate. PHYSICAL EXAMINATION: General: She is cachectic, chronically ill appearing, slightly shortness of breath at rest on nasal cannula. Vital Signs: Temperature 98.3, blood pressure 139/64, pulse 64 regular, respirations 20 per minutes. HEENT: Sclerae anicteric. Heart: Sounds S1, S2. Lungs: Clear. Diminished breath sounds throughout. Abdomen: Soft, nontender. No suprapubic or flank tenderness. Extremities: Negative for edema. IMPRESSION: 1. Acute exacerbation chronic obstructive pulmonary disease. 2. History of bladder cancer. PLAN: No evidence of active pulmonary infection or urinary tract infection. Observe off antibiotic therapy. Continue treatment for COPD. Thank you for the kind referral. SOHAM JOSE M.D. [id number]
[2019-10-07] MEDS: ATORVASTATIN CA 80 MG TABLET (FP) PO SCH (21:36)
[2019-10-08] MEDS: INSULIN SLIDING SCALE (NOVOLOG) 1 VIAL SQ SCH ×2 (06:22→17:03)
[2019-10-08] MEDS: ALBUTEROL SO4 2.5/IPRATROPIUM 0.5 INH SOL 3 ML VIAL.NEB. NEB SCH ×4 (07:37→20:31)
[2019-10-08] MEDS: HEPARIN NA (PORCINE) 5,000 UNITS/ML 1ML VIAL SQ SCH ×2 (09:47→22:48)
[2019-10-08] MEDS: LOSARTAN POTASSIUM 50 MG TABLET (FP) PO SCH (09:47)
[2019-10-08] MEDS: methylPREDNISolone NA SUCC 40 MG/1 ML VIAL IVPUSH SCH ×2 (09:47→22:48)
[2019-10-08] MEDS: amLODIPine BESYLATE 5 MG TABLET (FP) PO SCH (09:48)
[2019-10-08] MEDS: CLOPIDOGREL BISULFATE 75 MG TABLET (FP) PO SCH (09:48)
[2019-10-08] MEDS: ALPRAZolam 0.25 MG TABLET PO SCH ×2 (09:48→22:48)
[2019-10-08] MEDS: PANTOPRAZOLE 20 MG TABLET (FP) PO SCH (09:48)
--- NOTE | 2019-10-08 10:03 | PN ---
Progress Note (short form) - Note Progress Note: Reports breathing feels better today. Remains mildly tachypneic at rest. Less SOB and cough. No acute events overnight. Intake & Output 10/05/19 10/06/19 10/07/19 10/08/19 23:59 23:59 23:59 23:59 Intake Total 450 111 490 Balance 450 111 490 Weight 92 lb 93 lb 4.8 oz 96 lb 14.4 oz 93 lb 8 oz Last Vital Signs Temp Pulse Resp BP Pulse Ox 98.1 F 71 20 152/69 91 L 10/08/19 09:44 10/08/19 09:44 10/08/19 09:44 10/08/19 09:44 10/07/19 22:00 Active Medications Albuterol/Ipratropium (Duoneb -) 1 amp NEB RQID [facility] Last Admin: 10/08/19 07:37 Dose: 1 amp Alprazolam (Xanax -) 0.25 mg PO BID [facility] Last Admin: 10/08/19 09:48 Dose: 0.25 mg Amlodipine Besylate (Norvasc -) 5 mg PO DAILY [facility] Last Admin: 10/08/19 09:48 Dose: 5 mg Atorvastatin Calcium (Lipitor -) 80 mg PO HS [facility] Last Admin: 10/07/19 21:36 Dose: 80 mg Clopidogrel Bisulfate (Plavix -) 75 mg PO DAILY [facility] Last Admin: 10/08/19 09:48 Dose: 75 mg Heparin Sodium (Porcine) (Heparin -) 5,000 unit SQ BID [facility] [place] Last Admin: 10/08/19 09:47 Dose: 5,000 unit Insulin Aspart (Novolog Vial Sliding Scale -) [facility]; Protocol Last Admin: 10/08/19 06:22 Dose: Not Given Losartan Potassium (Cozaar -) 100 mg PO DAILY [facility] Last Admin: 10/08/19 09:47 Dose: 100 mg Methylprednisolone Sodium Succinate (Solu-Medrol -) 40 mg IVPUSH BID [facility] Last Admin: 10/08/19 09:47 Dose: 40 mg Pantoprazole Sodium (Protonix -) 20 mg PO DAILY [facility] Last Admin: 10/08/19 09:48 Dose: 20 mg Constitutional: Yes: Awake and alert, NAD Eyes: Yes: EOM Intact HENT: Yes: Normocephalic Neck: Yes: Trachea Midline Cardiovascular: Yes: S1, S2 Respiratory: Yes: Few scattered rhonchi, no expiratory wheezes appreciated, Diminished at the bases Gastrointestinal: Yes: Normal Bowel Sounds, Soft Edema: No Labs: Laboratory Results - last 24 hr 10/07/19 10/07/19 10/07/19 11:55 13:03 13:03 WBC 13.6 H RBC 4.65 Hgb 13.2 Hct 41.7 D MCV 89.7 MCH 28.3 MCHC 31.6 L RDW 18.0 H Plt Count 238 D MPV 8.7 Sodium 140 Potassium 3.9 Chloride 100 Carbon Dioxide 36 H Anion Gap 4 L BUN 30.9 H Creatinine 0.8 Est GFR (CKD-EPI)AfAm 84.77 Est GFR (CKD-EPI)NonAf 73.14 POC Glucometer 120 Random Glucose 116 H Calcium 8.5 Magnesium 2.2 10/07/19 10/07/19 10/08/19 16:47 21:34 06:12 WBC RBC Hgb Hct MCV MCH MCHC RDW Plt Count MPV Sodium Potassium Chloride Carbon Dioxide Anion Gap BUN Creatinine Est GFR (CKD-EPI)AfAm Est GFR (CKD-EPI)NonAf POC Glucometer 151 121 112 Random Glucose Calcium Magnesium Problem List - Problems (1) COPD (chronic obstructive pulmonary disease) Code(s): J44.9 - CHRONIC OBSTRUCTIVE PULMONARY DISEASE, UNSPECIFIED Qualifiers: COPD type: COPD with acute exacerbation Qualified Code(s): J44.1 - Chronic obstructive pulmonary disease with (acute) exacerbation (2) ASHD (arteriosclerotic heart disease) Code(s): I25.10 - ATHSCL HEART DISEASE OF [place] CORONARY ARTERY W/O ANG PCTRS (3) Acute on chronic respiratory failure with hypoxia and hypercapnia Code(s): J96.21 - ACUTE AND CHRONIC RESPIRATORY FAILURE WITH HYPOXIA; J96.22 - ACUTE AND CHRONIC RESPIRATORY FAILURE WITH HYPERCAPNIA (4) Anxiety Code(s): F41.9 - ANXIETY DISORDER, UNSPECIFIED (5) Bladder cancer Code(s): C67.9 - MALIGNANT NEOPLASM OF BLADDER, UNSPECIFIED (6) DVT prophylaxis Code(s): [id number] - (7) Dyspnea Code(s): R06.00 - DYSPNEA, UNSPECIFIED (8) Thoracic aortic aneurysm Code(s): I71.2 - THORACIC AORTIC ANEURYSM, WITHOUT RUPTURE (9) Tobacco abuse Code(s): Z72.0 - TOBACCO USE (10) Weight loss Code(s): R63.4 - ABNORMAL WEIGHT LOSS Assessment/Plan END STAGE O2 DEPENDANT COPD IN AN ACTIVE SMOKER DUONEB SOLUMEDROL SUPPLEMENTAL O2 NEEDED CAN START DALIRESP & ZITHROMAX QOD AN OUTPATIENT SMOKING CESSATION DISCUSSED DR EDWARDS
--- NOTE | 2019-10-08 12:34 | PN ---
Progress Note (short form) - Note Progress Note: s: sob near baseline. no chest pain,palps, dizziness. Current Medications Albuterol/Ipratropium (Duoneb -) 1 amp NEB RQID [facility] Last Admin: 10/08/19 11:22 Dose: 1 amp Alprazolam (Xanax -) 0.25 mg PO BID [facility] Last Admin: 10/08/19 09:48 Dose: 0.25 mg Amlodipine Besylate (Norvasc -) 5 mg PO DAILY [facility] Last Admin: 10/08/19 09:48 Dose: 5 mg Atorvastatin Calcium (Lipitor -) 80 mg PO HS [facility] Last Admin: 10/07/19 21:36 Dose: 80 mg Clopidogrel Bisulfate (Plavix -) 75 mg PO DAILY [facility] Last Admin: 10/08/19 09:48 Dose: 75 mg Heparin Sodium (Porcine) (Heparin -) 5,000 unit SQ BID [facility] Last Admin: 10/08/19 09:47 Dose: 5,000 unit Insulin Aspart ([facility]olog [facility]ial Sliding Scale -) [facility]; Protocol Last Admin: 10/08/19 06:22 Dose: Not Given Losartan Potassium (Cozaar -) 100 mg PO DAILY [facility] Last Admin: 10/08/19 09:47 Dose: 100 mg Methylprednisolone Sodium Succinate (Solu-Medrol -) 40 mg IVPUSH BID [facility] Last Admin: 10/08/19 09:47 Dose: 40 mg Pantoprazole Sodium (Protonix -) 20 mg PO DAILY [facility] Last Admin: 10/08/19 09:48 Dose: 20 mg Vital Signs Period Temp Pulse Resp BP Sys/Lock Pulse Ox Last 24 Hr 97.5 F-98.1 F 68-89 20-22 135-152/66-85 91-91 Constitutional: Yes: Well Nourished, No Distress Eyes: No: Sclera Icterus HENT: No: Nasal Congestion Neck: No: Decreased ROM Respiratory: Yes: CTA Bilaterally, scattered rhonchi, wheezes. No: Accessory Muscle Use, Rales Gastrointestinal: Yes: Normal Bowel Sounds. No: Distention, Hepatomegaly, Palpable Mass, Tenderness Cardiovascular: Yes: Regular Rate and Rhythm JVD: No Carotid Bruit: No PMI: Non-Displaced Heart Sounds: Yes: S1, S2. No: Gallop Murmur: No: Systolic Murmur, Diastolic Murmur Extremities: No: Cold, Cyanosis Edema: No Peripheral Pulses: 2+ Left Carotid, 2+ Right Carotid, 2+ Left Doralis Pedis, 2+ Right Dorsalis Pedis Integumentary: No: Jaundice Neurological: Yes: Alert, Oriented (x3) Psychiatric: No: Agitated cxr: no chf ecg: sinus arrhythmia, LVH with repol, no ischemic changes echo 03/2016: tds, mild dec lvef, nl rv, no sig valve path echo 04/2019: nl lv, rv tds, no sig valve path Assessment/Plan sob, cough, copd: - manage per pulm, on IV steroids, nebs, abx chronic CAD, remote pci, w/o angina: -mult prior stents (prox and mid LAD, entire RCA and RPDA) all patent on cath 2013 -no angina (chronic sob with chest pressure is copd sx--present prior to cath and unchanged since) -no signs acs -cont aspirin, plavix, statin, arb chronic diast chf -borderline depressed LVEF (45% on v-gram, 50% echo 2015) with moderately incr' d LVEDP at cath (24) -never clinical chf, no sob response to trial of lasix in past -appears euvolemic, CXR no congestion -no diuretics at this point HTN: -known bp lability from anxiety at times -stable, cont home meds HPL: -cont home statin +cigs: -previously counselled on cessation many times, not interested in quitting descending thoracic aortic aneurysm: -3.[address] chest 04/2019 -cont bp control - outpatient follow up for monitoring
--- NOTE | 2019-10-08 13:08 | PN ---
Progress Note, Physician Chief Complaint: COPD Exacerbation History of Present Illness: Previous notes and events reviewed awake and alert NAD sts having SOB with exertion denies chest pain O2 dependent - Current Medication List Current Medications: Active Medications Albuterol/Ipratropium (Duoneb -) 1 amp NEB RQID [facility] Last Admin: 10/08/19 11:22 Dose: 1 amp Alprazolam (Xanax -) 0.25 mg PO BID [facility] Last Admin: 10/08/19 09:48 Dose: 0.25 mg Amlodipine Besylate (Norvasc -) 5 mg PO DAILY [facility] Last Admin: 10/08/19 09:48 Dose: 5 mg Atorvastatin Calcium (Lipitor -) 80 mg PO HS [facility] Last Admin: 10/07/19 21:36 Dose: 80 mg Clopidogrel Bisulfate (Plavix -) 75 mg PO DAILY [facility] Last Admin: 10/08/19 09:48 Dose: 75 mg Heparin Sodium (Porcine) (Heparin -) 5,000 unit SQ BID [facility] Last Admin: 10/08/19 09:47 Dose: 5,000 unit Insulin Aspart (Novolog Vial Sliding Scale -) [facility] Last Admin: 10/08/19 06:22 Dose: Not Given Losartan Potassium (Cozaar -) 100 mg PO DAILY [facility] Last Admin: 10/08/19 09:47 Dose: 100 mg Methylprednisolone Sodium Succinate (Solu-Medrol -) 40 mg IVPUSH BID [facility] Last Admin: 10/08/19 09:47 Dose: 40 mg Pantoprazole Sodium (Protonix -) 20 mg PO DAILY [facility] Last Admin: 10/08/19 09:48 Dose: 20 mg - Objective Vital Signs: Vital Signs Temperature 98.1 F 10/08/19 09:44 Pulse Rate 71 10/08/19 09:44 Respiratory Rate 20 10/08/19 09:44 Blood Pressure 152/69 10/08/19 09:44 O2 Sat by Pulse Oximetry (%) 91 L 10/08/19 10:00 Constitutional: Yes: No Distress, Calm, Thin Eyes: Yes: Conjunctiva Clear HENT: Yes: Atraumatic Cardiovascular: Yes: Regular Rate and Rhythm Respiratory: Yes: Regular, Diminished, On Nasal O2 Gastrointestinal: Yes: Normal Bowel Sounds, Soft Musculoskeletal: Yes: WNL Extremities: Yes: WNL Edema: No Neurological: Yes: Alert, Oriented Psychiatric: Yes: Alert, Oriented Labs: CBC, BMP 10/07/19 13:03 10/07/19 13:03 INR, PTT INR 0.88 (0.83-1.09) 10/03/19 11:12 Microbiology 10/03/19 11:06 Blood - Peripheral Venous Blood Culture - Final NO GROWTH AFTER 5 DAYS INCUBATION 10/03/19 11:08 Blood - Peripheral Venous Blood Culture - Final NO GROWTH AFTER 5 DAYS INCUBATION 10/03/19 12:00 Urine - Urine Clean Catch Urine Culture - Final NO GROWTH OBTAINED Problem List - Problems (1) Acute on chronic respiratory failure with hypoxia and hypercapnia Assessment/Plan: -Pulm on board -Bronchodilators -IV Medrol -keep SpO2 >90% -O2 via NC -will d/c home with Daliresp and Azithromycin qod -patient refuse Pulm Rehab when discharged -CXR shows no sign of infiltrate or failure Code(s): J96.21 - ACUTE AND CHRONIC RESPIRATORY FAILURE WITH HYPOXIA; J96.22 - ACUTE AND CHRONIC RESPIRATORY FAILURE WITH HYPERCAPNIA (2) CAD (coronary artery disease) Assessment/Plan: -Plavix Code(s): I25.10 - ATHSCL HEART DISEASE OF [place] CORONARY ARTERY W/O ANG PCTRS (3) CKD (chronic kidney disease) Assessment/Plan: -BUN/Cr 30.9/0.8 -continue to monitor renal function Code(s): N18.9 - CHRONIC KIDNEY DISEASE, UNSPECIFIED (4) COPD exacerbation Assessment/Plan: -Pulm on board -Bronchodilators -IV Medrol -keep SpO2 >90% -O2 via NC -will d/c home with Daliresp and Azithromycin qod -patient refuse Pulm Rehab when discharged -CXR shows no sign of infiltrate or failure Code(s): J44.1 - CHRONIC OBSTRUCTIVE PULMONARY DISEASE W (ACUTE) EXACERBATION (5) HTN (hypertension) Assessment/Plan: -Issa Molina -low Na diet Code(s): I10 - ESSENTIAL (PRIMARY) HYPERTENSION Assessment/Plan see problem list begin discharge planning for possible d/c home tomorrow
[2019-10-08] MEDS: ATORVASTATIN CA 80 MG TABLET (FP) PO SCH (22:48)
[2019-10-09] MEDS: INSULIN SLIDING SCALE (NOVOLOG) 1 VIAL SQ SCH ×2 (06:46→16:28)
[2019-10-09] MEDS: ALBUTEROL SO4 2.5/IPRATROPIUM 0.5 INH SOL 3 ML VIAL.NEB. NEB SCH ×4 (07:33→20:19)
--- NOTE | 2019-10-09 10:02 | PN ---
Progress Note (short form) - Note Progress Note: Reports breathing feels better today. Remains mildly tachypneic at rest. Less SOB and cough. No acute events overnight. Intake & Output 10/06/19 10/07/19 10/08/19 10/09/19 23:59 23:59 23:59 23:59 Intake Total 111 490 10 10 Balance 111 490 10 10 Weight 93 lb 4.8 oz 96 lb 14.4 oz 93 lb 8 oz 94 lb Last Vital Signs Temp Pulse Resp BP Pulse Ox 97.7 F 63 20 141/70 92 L 10/09/19 05:00 10/09/19 05:00 10/09/19 05:00 10/09/19 05:00 10/08/19 22:00 Active Medications Albuterol/Ipratropium (Duoneb -) 1 amp NEB RQID [facility] Last Admin: 10/09/19 07:33 Dose: 1 amp Alprazolam (Xanax -) 0.25 mg PO BID [facility] Last Admin: 10/08/19 22:48 Dose: 0.25 mg Amlodipine Besylate (Norvasc -) 5 mg PO DAILY [facility] Last Admin: 10/08/19 09:48 Dose: 5 mg Atorvastatin Calcium (Lipitor -) 80 mg PO HS [facility] Last Admin: 10/08/19 22:48 Dose: 80 mg Clopidogrel Bisulfate (Plavix -) 75 mg PO DAILY [facility] Last Admin: 10/08/19 09:48 Dose: 75 mg Heparin Sodium (Porcine) (Heparin -) 5,000 unit SQ BID [facility] Last Admin: 10/08/19 22:48 Dose: 5,000 unit Insulin Aspart (Novolog Vial Sliding Scale -) [facility]; Protocol Last Admin: 10/09/19 06:46 Dose: Not Given Losartan Potassium (Cozaar -) 100 mg PO DAILY [facility] Last Admin: 10/08/19 09:47 Dose: 100 mg Methylprednisolone Sodium Succinate (Solu-Medrol -) 40 mg IVPUSH BID [facility] Last Admin: 10/08/19 22:48 Dose: 40 mg Pantoprazole Sodium (Protonix -) 20 mg PO DAILY [facility] Last Admin: 10/08/19 09:48 Dose: 20 mg Constitutional: Yes: Awake and alert, NAD Eyes: Yes: EOM Intact HENT: Yes: Normocephalic Neck: Yes: Trachea Midline Cardiovascular: Yes: S1, S2 Respiratory: Yes: Few scattered rhonchi, no expiratory wheezes appreciated, Diminished at the bases Gastrointestinal: Yes: Normal Bowel Sounds, Soft Edema: No Labs: Laboratory Results - last 24 hr 10/08/19 10/08/19 10/09/19 11:25 16:59 06:45 POC Glucometer 101 175 131 Problem List - Problems (1) COPD (chronic obstructive pulmonary disease) Code(s): J44.9 - CHRONIC OBSTRUCTIVE PULMONARY DISEASE, UNSPECIFIED Qualifiers: COPD type: COPD with acute exacerbation Qualified Code(s): J44.1 - Chronic obstructive pulmonary disease with (acute) exacerbation (2) ASHD (arteriosclerotic heart disease) Code(s): I25.10 - ATHSCL HEART DISEASE OF [place] CORONARY ARTERY W/O ANG PCTRS (3) Acute on chronic respiratory failure with hypoxia and hypercapnia Code(s): J96.21 - ACUTE AND CHRONIC RESPIRATORY FAILURE WITH HYPOXIA; J96.22 - ACUTE AND CHRONIC RESPIRATORY FAILURE WITH HYPERCAPNIA (4) Anxiety Code(s): F41.9 - ANXIETY DISORDER, UNSPECIFIED (5) Bladder cancer Code(s): C67.9 - MALIGNANT NEOPLASM OF BLADDER, UNSPECIFIED (6) DVT prophylaxis Code(s): UFK8333 - (7) Dyspnea Code(s): R06.00 - DYSPNEA, UNSPECIFIED (8) Thoracic aortic aneurysm Code(s): I71.2 - THORACIC AORTIC ANEURYSM, WITHOUT RUPTURE (9) Tobacco abuse Code(s): Z72.0 - TOBACCO USE (10) Weight loss Code(s): R63.4 - ABNORMAL WEIGHT LOSS Assessment/Plan END STAGE O2 DEPENDANT COPD IN AN ACTIVE SMOKER DUONEB SOLUMEDROL: CAN LIKELY CHANGE TO PREDNISONE IN THE NEXT 24 HOURS SUPPLEMENTAL O2 NEEDED CAN START DALIRESP & ZITHROMAX QOD AN OUTPATIENT SMOKING CESSATION DISCUSSED DC [facility]ANNING DR EDWARDS
[2019-10-09] MEDS: LOSARTAN POTASSIUM 50 MG TABLET (FP) PO SCH (10:51)
[2019-10-09] MEDS: methylPREDNISolone NA SUCC 40 MG/1 ML VIAL IVPUSH SCH ×2 (10:51→21:20)
[2019-10-09] MEDS: HEPARIN NA (PORCINE) 5,000 UNITS/ML 1ML VIAL SQ SCH ×2 (10:51→21:20)
[2019-10-09] MEDS: CLOPIDOGREL BISULFATE 75 MG TABLET (FP) PO SCH (10:51)
[2019-10-09] MEDS: ALPRAZolam 0.25 MG TABLET PO SCH ×2 (10:51→21:20)
[2019-10-09] MEDS: amLODIPine BESYLATE 5 MG TABLET (FP) PO SCH (10:51)
[2019-10-09] MEDS: PANTOPRAZOLE 20 MG TABLET (FP) PO SCH (10:51)
--- NOTE | 2019-10-09 12:30 | PN ---
Progress Note (short form) - Note Progress Note: s: sob stable. no chest pain,palps, dizziness. Current Medications Albuterol/Ipratropium (Duoneb -) 1 amp NEB RQID [facility] Last Admin: 10/09/19 12:22 Dose: 1 amp Alprazolam (Xanax -) 0.25 mg PO BID [facility] Last Admin: 10/09/19 10:51 Dose: 0.25 mg Amlodipine Besylate (Norvasc -) 5 mg PO DAILY [facility] Last Admin: 10/09/19 10:51 Dose: 5 mg Atorvastatin Calcium (Lipitor -) 80 mg PO HS [facility] Last Admin: 10/08/19 22:48 Dose: 80 mg Clopidogrel Bisulfate (Plavix -) 75 mg PO DAILY [facility] Last Admin: 10/09/19 10:51 Dose: 75 mg Heparin Sodium (Porcine) (Heparin -) 5,000 unit SQ BID [facility] Last Admin: 10/09/19 10:51 Dose: 5,000 unit Insulin Aspart ([facility]ial Sliding Scale -) [facility] Protocol Last Admin: 10/09/19 06:46 Dose: Not Given Losartan Potassium (Cozaar -) 100 mg PO DAILY [facility] Last Admin: 10/09/19 10:51 Dose: 100 mg Methylprednisolone Sodium Succinate (Solu-Medrol -) 40 mg IVPUSH BID [facility] Last Admin: 10/09/19 10:51 Dose: 40 mg Pantoprazole Sodium (Protonix -) 20 mg PO DAILY [facility] Last Admin: 10/09/19 10:51 Dose: 20 mg Vital Signs Period Temp Pulse Resp BP Sys/Lock Pulse Ox Last 24 Hr 97.7 F-98.4 F 63-79 18-24 139-143/65-74 92 Constitutional: Yes: Well Nourished, No Distress Eyes: No: Sclera Icterus HENT: No: Nasal Congestion Neck: No: Decreased ROM Respiratory: Yes: CTA Bilaterally, scattered rhonchi, wheezes. No: Accessory Muscle Use, Rales Gastrointestinal: Yes: Normal Bowel Sounds. No: Distention, Hepatomegaly, Palpable Mass, Tenderness Cardiovascular: Yes: Regular Rate and Rhythm JVD: No Carotid Bruit: No PMI: Non-Displaced Heart Sounds: Yes: S1, S2. No: Gallop Murmur: No: Systolic Murmur, Diastolic Murmur Extremities: No: Cold, Cyanosis Edema: No Peripheral Pulses: 2+ Left Carotid, 2+ Right Carotid, 2+ Left Doralis Pedis, 2+ Right Dorsalis Pedis Integumentary: No: Jaundice Neurological: Yes: Alert, Oriented (x3) Psychiatric: No: Agitated cxr: no chf ecg: sinus arrhythmia, LVH with repol, no ischemic changes echo 03/2016: tds, mild dec lvef, nl rv, no sig valve path echo 04/2019: nl lv, rv tds, no sig valve path Assessment/Plan sob, cough, copd: - manage per pulm, on IV steroids, nebs, abx chronic CAD, remote pci, w/o angina: -mult prior stents (prox and mid LAD, entire RCA and RPDA) all patent on cath 2013 -no angina (chronic sob with chest pressure is copd sx--present prior to cath and unchanged since) -no signs acs -cont aspirin, plavix, statin, arb chronic diast chf -borderline depressed LVEF (45% on v-gram, 50% echo 2015) with moderately incr' d LVEDP at cath (24) -never clinical chf, no sob response to trial of lasix in past -appears euvolemic, CXR no congestion -no diuretics at this point HTN: -known bp lability from anxiety at times -stable, cont home meds HPL: -cont home statin +cigs: -previously counselled on cessation many times, not interested in quitting descending thoracic aortic aneurysm: -3.[address] chest 04/2019 -cont bp control - outpatient follow up for monitoring
--- NOTE | 2019-10-09 13:45 | DS ---
Physical Examination Vital Signs: Vital Signs Temperature 98.1 F 10/09/19 10:50 Pulse Rate 64 10/09/19 10:50 Respiratory Rate 18 10/09/19 10:50 Blood Pressure 143/65 10/09/19 10:50 O2 Sat by Pulse Oximetry (%) 92 L 10/08/19 22:00 Findings/Remarks: Laboratory Results - last 24 hr 10/08/19 10/09/19 10/09/19 16:59 06:45 12:35 POC Glucometer 175 131 79 Home Medication List Medication Instructions Recorded Confirmed Type Amlodipine Besylate 5 mg PO DAILY 05/08/16 10/03/19 History Losartan Potassium 100 mg PO DAILY 05/08/16 10/03/19 History Tiotropium Br/Olodaterol HCl 2 puff IH DAILY 04/26/19 10/03/19 History [Stiolto Respimat Inhal [place]] Tiotropium [place] [Spiriva] 18 mcg IH DAILY 04/26/19 10/03/19 History Active Medications Generic Name Dose Route Start Last Admin Trade Name Loren PRN Reason Stop Dose Admin Albuterol/Ipratropium 1 amp 10/03/19 16:00 10/09/19 12:22 Duoneb - NEB 1 amp RQID [facility] Administration Alprazolam 0.25 mg 10/03/19 22:00 10/09/19 10:51 Xanax - PO 0.25 mg BID [facility] Administration Amlodipine Besylate 5 mg 10/04/19 10:00 10/09/19 10:51 Norvasc - PO 5 mg DAILY [facility] Administration Atorvastatin Calcium 80 mg 10/03/19 22:00 10/08/19 22:48 Lipitor - PO 80 mg HS [facility] Administration Clopidogrel Bisulfate 75 mg 10/04/19 10:00 10/09/19 10:51 Plavix - PO 75 mg DAILY [facility] Administration Heparin Sodium (Porcine) 5,000 unit 10/03/19 22:00 10/09/19 10:51 Heparin - SQ 5,000 unit BID [facility] Administration Insulin Aspart 1 vial 10/07/19 07:00 10/09/19 06:46 Novolog Vial Sliding Scale - SQ Not [facility] Protocol Losartan Potassium 100 mg 10/04/19 10:00 10/09/19 10:51 Cozaar - PO 100 mg DAILY [facility] Administration Methylprednisolone Sodium Succinate 40 mg 10/07/19 22:00 10/09/19 10:51 Solu-Medrol - IVPUSH 40 mg BID [facility] Administration Pantoprazole Sodium 20 mg 10/04/19 10:00 10/09/19 10:51 Protonix - PO 20 mg DAILY [facility] Administration Microbiology 10/03/19 11:06 Blood - Peripheral Venous Blood Culture - Final NO GROWTH AFTER 5 DAYS INCUBATION 10/03/19 11:08 Blood - Peripheral Venous Blood Culture - Final NO GROWTH AFTER 5 DAYS INCUBATION 10/03/19 12:00 Urine - Urine Clean Catch Urine Culture - Final NO GROWTH OBTAINED Constitutional: Yes: No Distress, Calm, Thin Eyes: Yes: Conjunctiva Clear HENT: Yes: Atraumatic Cardiovascular: Yes: Regular Rate and Rhythm Respiratory: Yes: Regular, On Nasal O2, Tachypnea, Wheezes Gastrointestinal: Yes: Normal Bowel Sounds, Soft Musculoskeletal: Yes: Muscle Weakness Extremities: Yes: WNL Edema: No Neurological: Yes: Alert, Oriented Psychiatric: Yes: Alert, Oriented Labs: CBC, BMP 10/07/19 13:03 10/07/19 13:03 Discharge Summary Problems reviewed: Yes Reason For Visit: UTI,SEPSIS,ACUTE EXC OF COPD Current Active Problems COPD (chronic obstructive pulmonary disease) (Acute) Hypoglycemia (Acute) Sepsis (Acute) UTI (urinary tract infection) (Acute) Hospital Course: 74 Y/O FEMALE H/O COPD +TOBACCO USE, AORTIC/ABD ANEURYSM F/U WITH DR ROSS, SENT FROM MY OFFICE FOR DYSPNEA WITH 02 SAT 72% ON 2L NC PORTABLE 02. Patient was evaluated by Pulmonary and treated with IV Medrol. Breathing has improved since admission. CXR shows no signs of infiltrate or effusion. Offered patient pulmonary rehab at SNF for discharge and patient refused. Patient will go home with [facility]. Condition: Stable - Instructions Diet, Activity, Other Instructions: Follow up with PMD in 2 weeks of discharge Follow up with Pulmonary Dr Lackey in 2 weeks Prednisone Taper: take 40mg x 3 days, take 30mg x 3 days, take 20-mg x 3 days, take 10mg x 3 days Zithromax 250mg every other day x 5 days continue with medication regimen as prescribed return to ER if develop severe pain, respiratory distress, chest pain, AMS Referrals: Aquiles Lackey MD [Staff Physician] - Khanh Gutiérrez MD [Primary Care Provider] - Disposition: VNS/HOME HEALTH CARE - Home Medications Comprehensive Discharge Medication List: Ambulatory Orders Amlodipine Besylate 5 mg PO DAILY 05/08/16 Losartan Potassium 100 mg PO DAILY 05/08/16 Clopidogrel Bisulfate [Plavix -] 75 mg PO DAILY #0 05/12/16 Atorvastatin Ca [Lipitor] 80 mg PO HS tablet 11/03/16 Lactobacillus Acidophilus [Bacid -] 1 tab PO BID #60 tab 11/03/16 Albuterol 2.5/Ipratropium 0.5 [Duoneb -] 1 amp NEB RQID amp 04/26/18 Alprazolam [Xanax] 0.25 mg PO BID #20 tablet MDD 2 04/26/18 Tiotropium Br/Olodaterol HCl [Stiolto Respimat Inhal [place]] 2 puff IH DAILY Tiotropium [place] [Spiriva] 18 mcg IH DAILY 04/26/19 Azithromycin [Zithromax -] 250 mg PO UTDICT #5 tablet 10/09/19 Pantoprazole Sodium [Protonix -] 20 mg PO DAILY #30 tablet.ec 10/09/19 Prednisone 10 mg PO DAILY #30 tablet 10/09/19 Roflumilast [Daliresp] 500 mcg PO DAILY #30 tab 10/09/19
[2019-10-09] MEDS: ATORVASTATIN CA 80 MG TABLET (FP) PO SCH (21:20)
[2019-10-10] MEDS: INSULIN SLIDING SCALE (NOVOLOG) 1 VIAL SQ SCH (06:07)
[2019-10-10] MEDS ORDERED: INSULIN (NOVOLOG) ASPART 100 UNITS/ML 10ML VIAL ONE (06:17)
[2019-10-10] MEDS: ALBUTEROL SO4 2.5/IPRATROPIUM 0.5 INH SOL 3 ML VIAL.NEB. NEB SCH (07:40)
[2019-10-10] MEDS: ALPRAZolam 0.25 MG TABLET PO SCH (09:35)
[2019-10-10] MEDS: amLODIPine BESYLATE 5 MG TABLET (FP) PO SCH (09:35)
[2019-10-10] MEDS: HEPARIN NA (PORCINE) 5,000 UNITS/ML 1ML VIAL SQ SCH (09:35)
[2019-10-10] MEDS: CLOPIDOGREL BISULFATE 75 MG TABLET (FP) PO SCH (09:35)
[2019-10-10] MEDS: methylPREDNISolone NA SUCC 40 MG/1 ML VIAL IVPUSH SCH (09:35)
[2019-10-10] MEDS: PANTOPRAZOLE 20 MG TABLET (FP) PO SCH (09:35)
[2019-10-10] MEDS: LOSARTAN POTASSIUM 50 MG TABLET (FP) PO SCH (09:36)
--- NOTE | 2019-10-10 10:39 | PN ---
Progress Note (short form) - Note Progress Note: PULMONARY States breathing is improving. Less cough and wheezing. Vital Signs Period Temp Pulse Resp BP Sys/Lock Pulse Ox Last 24 Hr 97.8 F-98.5 F 64-74 18-22 127-145/59-75 95-95 Gen: NAD at rest Heart: RRR Lung: no wheezes appreciated Abd: soft, nontender Ext: no edema CBC, BMP 10/07/19 13:03 10/07/19 13:03 Active Medications Albuterol/Ipratropium (Duoneb -) 1 amp NEB RQID [facility] Last Admin: 10/10/19 07:40 Dose: 1 amp Alprazolam (Xanax -) 0.25 mg PO BID [facility] Last Admin: 10/10/19 09:35 Dose: 0.25 mg Amlodipine Besylate (Norvasc -) 5 mg PO DAILY [facility] Last Admin: 10/10/19 09:35 Dose: 5 mg Atorvastatin Calcium (Lipitor -) 80 mg PO HS [facility] Last Admin: 10/09/19 21:20 Dose: 80 mg Clopidogrel Bisulfate (Plavix -) 75 mg PO DAILY [facility] Last Admin: 10/10/19 09:35 Dose: 75 mg Heparin Sodium (Porcine) (Heparin -) 5,000 unit SQ BID [facility] Last Admin: 10/10/19 09:35 Dose: 5,000 unit Insulin Aspart (Novolog Vial Sliding Scale -) 1 vial SQ BIDAC [facility]; Protocol Last Admin: 10/10/19 06:07 Dose: Not Given Losartan Potassium (Cozaar -) 100 mg PO DAILY [facility] Last Admin: 10/10/19 09:36 Dose: 100 mg Methylprednisolone Sodium Succinate (Solu-Medrol -) 40 mg IVPUSH BID [facility] Last Admin: 10/10/19 09:35 Dose: 40 mg Pantoprazole Sodium (Protonix -) 20 mg PO DAILY [facility] Last Admin: 10/10/19 09:35 Dose: 20 mg A/P Acute on Chronic Hypoxic and Hypercapneic Respiratory Failure Acute COPD Exacerbation CAD LV Diastolic Dysfunction HTN Hyperlipidemia Smoker - prednisone taper - inhaled bronchodilators - O2 to keep SpO2 >90% - azithromycin TIW - smoking cessation
--- NOTE | 2019-10-10 10:50 | PN ---
Progress Note, Physician Chief Complaint: COPD Exacerbation History of Present Illness: Previous notes and events reviewed awake and alert NAD patient is being discharged home today denies SOB or chest pain - Current Medication List Current Medications: Active Medications Albuterol/Ipratropium (Duoneb -) 1 amp NEB RQID [facility] Last Admin: 10/10/19 07:40 Dose: 1 amp Alprazolam (Xanax -) 0.25 mg PO BID [facility] Last Admin: 10/10/19 09:35 Dose: 0.25 mg Amlodipine Besylate (Norvasc -) 5 mg PO DAILY [facility] Last Admin: 10/10/19 09:35 Dose: 5 mg Atorvastatin Calcium (Lipitor -) 80 mg PO HS [facility] Last Admin: 10/09/19 21:20 Dose: 80 mg Clopidogrel Bisulfate (Plavix -) 75 mg PO DAILY [facility] Last Admin: 10/10/19 09:35 Dose: 75 mg Heparin Sodium (Porcine) (Heparin -) 5,000 unit SQ BID [facility] Last Admin: 10/10/19 09:35 Dose: 5,000 unit Insulin Aspart ([facility]olog [facility] Sliding [facility] -) [facility] Protocol Last Admin: 10/10/19 06:07 Dose: Not Given Losartan Potassium (Cozaar -) 100 mg PO DAILY [facility] Last Admin: 10/10/19 09:36 Dose: 100 mg Methylprednisolone Sodium Succinate (Solu-Medrol -) 40 mg IVPUSH BID [facility] Last Admin: 10/10/19 09:35 Dose: 40 mg Pantoprazole Sodium (Protonix -) 20 mg PO DAILY [facility] Last Admin: 10/10/19 09:35 Dose: 20 mg - Objective Vital Signs: Vital Signs Temperature 98.1 F 10/10/19 04:00 Pulse Rate 72 10/10/19 04:00 Respiratory Rate 20 10/10/19 08:45 Blood Pressure 135/75 10/10/19 04:00 O2 Sat by Pulse Oximetry (%) 95 10/10/19 08:45 Constitutional: Yes: No Distress, Calm Eyes: Yes: Conjunctiva Clear HENT: Yes: Atraumatic Cardiovascular: Yes: Regular Rate and Rhythm Respiratory: Yes: Regular, Diminished, On Nasal O2 Gastrointestinal: Yes: Normal Bowel Sounds, Soft Musculoskeletal: Yes: Muscle Weakness Extremities: Yes: WNL Neurological: Yes: Alert, Oriented Psychiatric: Yes: Alert, Oriented Labs: CBC, BMP 10/07/19 13:03 10/07/19 13:03 INR, PTT INR 0.88 (0.83-1.09) 10/03/19 11:12 Problem List - Problems (1) Acute on chronic respiratory failure with hypoxia and hypercapnia Assessment/Plan: -Pulm on board -Bronchodilators -IV Medrol -keep SpO2 >90% -O2 via NC -will d/c home with Daliresp and Azithromycin qod -patient refuse Pulm Rehab when discharged -CXR shows no sign of infiltrate or failure Code(s): J96.21 - ACUTE AND CHRONIC RESPIRATORY FAILURE WITH HYPOXIA; J96.22 - ACUTE AND CHRONIC RESPIRATORY FAILURE WITH HYPERCAPNIA (2) CAD (coronary artery disease) Code(s): I25.10 - ATHSCL HEART DISEASE OF [place] CORONARY ARTERY W/O ANG PCTRS (3) CKD (chronic kidney disease) Code(s): N18.9 - CHRONIC KIDNEY DISEASE, UNSPECIFIED (4) COPD exacerbation Code(s): J44.1 - CHRONIC OBSTRUCTIVE PULMONARY DISEASE W (ACUTE) EXACERBATION (5) HTN (hypertension) Code(s): I10 - ESSENTIAL (PRIMARY) HYPERTENSION Assessment/Plan patient discharged home today
[2019-10-10 11:24] VITALS: BP 144/70; PULSE 67; TEMP 98.2
== END 2019-10-10 11:00 | disposition home health service (06) | DRG 189 ==
LOC: JER 09:42 → JERBED 12:36 → J8W 15:53
PROVIDERS: ADMIT Family Medicine; ATTEND Family Medicine
DX: J96.21 Acute and chronic respiratory failure with hypoxia (principal); J44.1 Chronic obstructive pulmonary disease with (acute) exacerbation; I50.32 Chronic diastolic (congestive) heart failure; Z68.1 Body mass index [BMI] 19.9 or less, adult; I13.0 Hypertensive heart and chronic kidney disease with heart failure and stage 1 through stage 4 chronic kidney disease, or unspecified chronic kidney disease; J96.22 Acute and chronic respiratory failure with hypercapnia; J44.9 Chronic obstructive pulmonary disease, unspecified; I25.10 Atherosclerotic heart disease of native coronary artery without angina pectoris; F17.210 Nicotine dependence, cigarettes, uncomplicated; E78.5 Hyperlipidemia, unspecified; R63.4 Abnormal weight loss; N18.9 Chronic kidney disease, unspecified; Z98.61 Coronary angioplasty status; I71.2 Thoracic aortic aneurysm, without rupture
CPT/HCPCS: 36415; 71045-TC-FY; 80048; 80053; 81003; 82803; 82962; 83605; 83735; 84436; 84484; 85025; 85027; 85610; 85730; 87040; 87086; 87804; 93005; 93010; 94640; 97116-GP; 97161-GP; 99283-25; J1644; J3535; J7030

== ENCOUNTER 2019-11-07 16:26 | Inpatient (IN) | payer OTHER, MEDICARE ==
--- NOTE | 2019-11-07 17:15 | PDOC ---
Attending Attestation - Resident Resident Name: KhrisJohnathan - HPI HPI: 11/07/19 18:57 Pt presents to the ED complaining of shortness of breath. History of COPD, recently was admitted and completed steroid taper, now presents complaining of worsening shortness of breath. Denies fever. - Physicial Exam PE: 11/07/19 18:59 Agree with resident exam. Patient is alert and oriented x 3 and in mild respiratory distress. Speaking in 3-4 word sentences. + decreased air entry and wheezes bilaterally. - Medical Decision Making 11/07/19 18:59 PT presents to the ED complaining of shortness of breath and wheezing. Wheezing and tachypneic on arrival to the ED. Will treat with nebs and steroids , check labs and admit to medicine
[2019-11-07] MEDS ORDERED: methylPREDNISolone NA SUCC 125 MG/2 ML VIAL IVPUSH ONE (17:56)
[2019-11-07] MEDS ORDERED: ALBUTEROL SO4 2.5/IPRATROPIUM 0.5 INH SOL 3 ML VIAL.NEB. NEB ONE ×4 (17:56→18:30)
--- NOTE | 2019-11-07 17:57 | PDOC ---
History of Present Illness - General Chief Complaint: Shortness of Breath Stated Complaint: DIFFICULTY BREATHING Time Seen by Provider: 11/07/19 17:05 - History of Present Illness Initial Comments: Ms. Tadeo is a 74 y/o female with PMH significant for HTN, CAD s/p stents, COPD (on 4L NC at home), presenting today with shortness of breath that started this morning. Reports that she started feeling unwell this morning and tried using her nebulizer and inhaler at home without relief. She called her PCP's office who sent her into the ER. At bedside, reports shortness of breath. Reports that she has a mild productive cough that developed today. No fever, no chills. No chest pain. No abdominal pain. No leg swelling. No sick contacts. No recent illness. Past History - Past Medical History Allergies/Adverse Reactions: Allergies Allergy/AdvReac Type Severity Reaction Status Date / Time No Known Drug Allergies Allergy Verified 11/07/19 16:46 Home Medications: Ambulatory Orders Amlodipine Besylate 5 mg PO DAILY 05/08/16 Losartan Potassium 100 mg PO DAILY 05/08/16 Clopidogrel Bisulfate [Plavix -] 75 mg PO DAILY #0 05/12/16 Atorvastatin Ca [Lipitor] 80 mg PO HS tablet 11/03/16 Lactobacillus Acidophilus [Bacid -] 1 tab PO BID #60 tab 11/03/16 Albuterol 2.5/Ipratropium 0.5 [Duoneb -] 1 amp NEB RQID amp 04/26/18 Alprazolam [Xanax] 0.25 mg PO BID #20 tablet MDD 2 04/26/18 Tiotropium Br/Olodaterol HCl [Stiolto Respimat Inhal [place]] 2 puff IH DAILY Tiotropium [place] [Spiriva] 18 mcg IH DAILY 04/26/19 Azithromycin [Zithromax -] 250 mg PO UTDICT #5 tablet 10/09/19 Pantoprazole Sodium [Protonix -] 20 mg PO DAILY #30 tablet.ec 10/09/19 Prednisone 10 mg PO DAILY #30 tablet 10/09/19 Roflumilast [Daliresp] 500 mcg PO DAILY #30 tab 10/09/19 Anemia: No Asthma: Yes (copd) Cancer: Yes (bladder) Cardiac Disorders: Yes (MD 2007, stents 2008) CVA: No COPD: Yes (uses 02 4l prn) CHF: No Dementia: No Diabetes: No (pre diabetic) GI Disorders: No Disorders: Yes (turbt) HTN: Yes Hypercholesterolemia: No Liver Disease: No Seizures: No Thyroid Disease: No - Surgical History Abdominal Surgery: No Appendectomy: No Cardiac Surgery: Yes (STENTS 2009) Cholecystectomy: No Lung Surgery: No Neurologic Surgery: No Orthopedic Surgery: Yes (GANGLION CYST) - Immunization History Immunization Up to Date: Yes - Psycho Social/Smoking Cessation Hx Smoking History: Never smoked Have you smoked in the past 12 months: Yes Number of Cigarettes Smoked Daily: 3 'Breaking Loose' booklet given: 10/03/19 Hx Alcohol Use: No Drug/Substance Use Hx: No Substance Use Type: None Hx Substance Use Treatment: No Review of Systems - Review of Systems Comments:: GENERAL/CONSTITUTIONAL: No fever or chills. No weakness._ HEAD, EYES, EARS, NOSE AND THROAT: No change in vision. No change in hearing. No sore throat._ CARDIOVASCULAR: No chest pain. Reports shortness of breath. RESPIRATORY: Reports cough. GASTROINTESTINAL: No nausea, vomiting, diarrhea or constipation._ GENITOURINARY: No dysuria, frequency, or change in urination._ MUSCULOSKELETAL: No joint or muscle swelling or pain. No neck or back pain._ SKIN: No rash_ NEUROLOGIC: No headache, vertigo, loss of consciousness, or change in strength/ sensation._ ENDOCRINE: No increased thirst. No abnormal weight change_ HEMATOLOGIC/LYMPHATIC: No anemia, easy bleeding, or history of blood clots._ ALLERGIC/IMMUNOLOGIC: No hives or skin allergy._ *Physical Exam - Vital Signs Last Vital Signs Temp Pulse Resp BP Pulse Ox 99.0 F 103 H 16 189/90 H 99 11/07/19 16:30 11/07/19 16:30 11/07/19 16:30 11/07/19 16:30 11/07/19 16:30 - Physical Exam GENERAL: Awake, alert, and oriented to person/place/time, in no acute distress_ HEAD: No signs of trauma, normocephalic, atraumatic _ EYES: PERRLA, EOMI, sclera anicteric, conjunctiva clear_ ENT: Hearing grossly normal, nares patent, oropharynx clear without exudates. No uvular deviation. Moist mucosa_ NECK: Normal ROM, supple, no lymphadenopathy, JVD, or masses_ LUNGS: No distress, speaks in full sentences, decreased air movement bilaterally , mild wheezes in upper left lung field HEART: Regular rate and rhythm, normal S1 and S2, no murmurs appreciated, peripheral pulses normal and equal bilaterally._ ABDOMEN: Soft, nontender, normoactive bowel sounds. No guarding, no rebound. No masses_ EXTREMITIES: Normal inspection, Normal range of motion, no edema. No clubbing or cyanosis_ NEUROLOGICAL: Cranial nerves II through XII grossly intact. Normal speech, normal gait, no focal sensorimotor deficits _ SKIN: Warm, Dry, normal turgor, no rashes or lesions noted_ ED Treatment Course - LABORATORY CBC & Chemistry Diagram: 11/08/19 12:30 11/08/19 12:30 - RADIOLOGY Radiology Studies Ordered: Category Date Time Status CHEST X-RAY PORTABLE* [RAD] Stat Radiology 11/07/19 17:56 Ordered Medical Decision Making - Medical Decision Making 74F hx of COPD, CAD s/p stents, presenting with shortness of breath and cough that started today. -cbc, cmp, bnp -ekg, trop, cxr -duonebs, solumedrol 11/07/19 19:59 EKG shows 85 bpm, NSR, no ST elevation, QTc 447. CXR shows no signs of consolidation and no acute intra thoracic pathology. Labs reviewed. Laboratory Last Values WBC 11.1 K/mm3 (4.0-10.0) H 11/07/19 18:45 RBC 4.32 M/mm3 (3.60-5.2) 11/07/19 18:45 Hgb 12.4 GM/dL (10.7-15.3) 11/07/19 18:45 Hct 38.4 % (32.4-45.2) 11/07/19 18:45 MCV 89.0 fl (80-96) 11/07/19 18:45 MCH 28.7 pg (25.7-33.7) 11/07/19 18:45 MCHC 32.2 g/dl (32.0-36.0) 11/07/19 18:45 RDW 18.8 % (11.6-15.6) H 11/07/19 18:45 Plt Count 332 K/MM3 (134-434) D 11/07/19 18:45 MPV 7.5 fl (7.5-11.1) D 11/07/19 18:45 Absolute Neuts (auto) 10.6 K/mm3 (1.5-8.0) H 11/07/19 18:45 Neutrophils % 95.8 % (42.8-82.8) H 11/07/19 18:45 Neutrophils % (Manual) 89.0 % (42.8-82.8) H 11/07/19 18:45 Band Neutrophils % 9.0 % 11/07/19 18:45 Lymphocytes % 3.7 % (8-40) L 11/07/19 18:45 Lymphocytes % (Manual) 2.0 % (8-40) L D 11/07/19 18:45 Monocytes % 0.4 % (3.8-10.2) L 11/07/19 18:45 Monocytes % (Manual) 0 % (3.8-10.2) L D 11/07/19 18:45 Eosinophils % 0.0 % (0-4.5) 11/07/19 18:45 Eosinophils % (Manual) 0.0 % (0-4.5) 11/07/19 18:45 Basophils % 0.1 % (0-2.0) 11/07/19 18:45 Basophils % (Manual) 0.0 % (0-2.0) 11/07/19 18:45 Myelocytes % (Man) 0 % (0-2) 11/07/19 18:45 Promyelocytes % (Man) 0 % (0-2) 11/07/19 18:45 Blast Cells % (Manual) 0 % (0-0) 11/07/19 18:45 Nucleated RBC % 0 % (0-0) 11/07/19 18:45 Metamyelocytes 0 % (0-2) 11/07/19 18:45 Hypochromia 0 11/07/19 18:45 Toxic Granulation 0 11/07/19 18:45 Dohle Bodies 0 11/07/19 18:45 Platelet Estimate Normal 11/07/19 18:45 Polychromasia 0 11/07/19 18:45 Poikilocytosis 0 11/07/19 18:45 Basophilic Stippling 0 11/07/19 18:45 Anisocytosis 0 11/07/19 18:45 Microcytosis 0 11/07/19 18:45 Macrocytosis 0 11/07/19 18:45 Spherocytes 0 11/07/19 18:45 Sickle Cells 0 11/07/19 18:45 Target Cells 0 11/07/19 18:45 Tear Drop Cells 0 11/07/19 18:45 Ovalocytes 0 11/07/19 18:45 Stomatocytes 0 11/07/19 18:45 Helmet Cells 0 11/07/19 18:45 Reyes-Free Soil Bodies 0 11/07/19 18:45 Felda Rings 0 11/07/19 18:45 [place] Cells 0 11/07/19 18:45 Acanthocytes (Spur) 0 11/07/19 18:45 Rouleaux 0 11/07/19 18:45 Fragmented RBCs 0 11/07/19 18:45 Schistocytes 0 11/07/19 18:45 Sodium 140 mmol/L (136-145) 11/07/19 18:45 Potassium 3.8 mmol/L (3.5-5.1) 11/07/19 18:45 Chloride 100 mmol/L (98-107) 11/07/19 18:45 Carbon Dioxide 37 mmol/L (21-32) H 11/07/19 18:45 Anion Gap 3 MMOL/L (8-16) L 11/07/19 18:45 BUN 17.2 mg/dL (7-18) 11/07/19 18:45 Creatinine 0.8 mg/dL (0.55-1.3) 11/07/19 18:45 Est GFR (CKD-EPI)AfAm 84.77 11/07/19 18:45 Est GFR (CKD-EPI)NonAf 73.14 11/07/19 18:45 Random Glucose 138 mg/dL (74-106) H 11/07/19 18:45 Calcium 9.3 mg/dL (8.5-10.1) 11/07/19 18:45 Total Bilirubin 0.8 mg/dL (0.2-1) 11/07/19 18:45 AST 23 U/L (15-37) 11/07/19 18:45 ALT 28 U/L (13-61) 11/07/19 18:45 Alkaline Phosphatase 73 U/L (45-117) 11/07/19 18:45 Creatine Kinase 83 U/L (26-192) 11/07/19 18:45 Troponin I 0.04 ng/ml (0.00-0.05) 11/07/19 18:45 B-Natriuretic Peptide 1316.2 pg/ml (5-125) H 11/07/19 18:45 Total Protein 6.6 g/dl (6.4-8.2) 11/07/19 18:45 Albumin 3.8 g/dl (3.4-5.0) 11/07/19 18:45 11/07/19 22:00 Pt reassessed. Reports improvement with duonebs. Requesting meal at bedside. 11/07/19 23:05 D/w [employer] [facility] Oriana who accepts the patient for admission for Dr. Gutiérrez. Discharge - Discharge Information Problems reviewed: Yes Clinical Impression/Diagnosis: COPD exacerbation Condition: Stable - Admission Yes - Follow up/Referral - Patient Discharge Instructions - Post Discharge Activity
[2019-11-07] MEDS ORDERED: methylPREDNISolone NA SUCC 125 MG/2 ML VIAL ONE (18:03)
[2019-11-07 19:08] LABS: BASO % 0.1 % (0-2.0); HEMATOCRIT 38.4 % (32.4-45.2); HEMOGLOBIN 12.4 GM/dL (10.7-15.3); LYMPH % 3.7 % (8-40); MCH 28.7 pg (25.7-33.7); MCHC 32.2 g/dl (32.0-36.0); MEAN PLT VOLUME 7.5 fl (7.5-11.1); MONO % 0.4 % (3.8-10.2); NEUT % 95.8 % (42.8-82.8); PLATELET COUNT 332 K/MM3 (134-434); RBC 4.32 M/mm3 (3.60-5.2); RDW 18.8 % (11.6-15.6); WHITE BLOOD COUNT 11.1 K/mm3 (4.0-10.0)
[2019-11-07 19:46] LABS: ALBUMIN 3.8 g/dl (3.4-5.0); BILIRUBIN,TOTAL 0.8 mg/dL (0.2-1); BLOOD UREA NITROGEN 17.2 mg/dL (7-18); CALCIUM 9.3 mg/dL (8.5-10.1); CREATININE 0.8 mg/dL (0.55-1.3); N-TERMINAL BNP 1316.2 pg/ml (5-125); POTASSIUM 3.8 mmol/L (3.5-5.1); TOT PROT 6.6 g/dl (6.4-8.2)
[2019-11-07] MEDS ORDERED: ALBUTEROL SO4 0.083% IH SOL 2.5 MG/3 ML VIAL.NEB. NEB ONE (23:45)
--- NOTE | 2019-11-08 00:57 | HP ---
CHIEF COMPLAINT: worsening shortness of breath associated with white sputum since yesterday PCP:Dr. Narayan Pulmonary: Dr. Lackey HISTORY OF PRESENT ILLNESS: Mrs. Tadeo is a 74 year old female with PMHx bladder cancer, hypertension, CAD with stents in 2008,abdominal aortic aneurysm, and COPD (home oxygen dependent, uses NC at 3-4L 24 hrs/day, oxygen saturation range in the upper 80's-low 90's) who presents with shortness of breath and a white productive cough which started yesterday and worsened today. She denied chest pain, fever, dizziness or syncopy. She reports she sleeps with the head of the bed elevated. She denied leg swelling or PND. ER course was notable for: (1)COPD Exacerbation, CXR w/ mild atelectasis at right base, received IV Solumedrol and a3 duonebs with improvement in symptoms (2)Elevated BNP of 1316 (previously in 900's), no signs of fluid overload on exam Resuscitation Status- Full code Recent Travel: no PAST MEDICAL HISTORY: Bladder HTN CAD with stents COPD Abdominal Aortic Aneurysm PAST SURGICAL HISTORY: denies Social History: Smoking:yes Alcohol:no Drugs: no Allergies No Known Drug Allergies Allergy (Verified 11/07/19 16:46) HOME MEDICATIONS: Home Medications Medication Instructions Recorded Amlodipine Besylate 5 mg PO DAILY 05/08/16 Losartan Potassium 100 mg PO DAILY 05/08/16 Clopidogrel Bisulfate [Plavix -] 75 mg PO DAILY #0 05/12/16 Atorvastatin Ca [Lipitor] 80 mg PO HS tablet 11/03/16 Lactobacillus Acidophilus [Bacid -] 1 tab PO BID #60 tab 11/03/16 Albuterol 2.5/Ipratropium 0.5 1 amp NEB RQID amp 04/26/18 [Duoneb -] Alprazolam [Xanax] 0.25 mg PO BID #20 tablet MDD 2 04/26/18 Tiotropium Br/Olodaterol HCl 2 puff IH DAILY 04/26/19 [Stiolto Respimat Inhal [place]] Tiotropium [place] [Spiriva] 18 mcg IH DAILY 04/26/19 Azithromycin [Zithromax -] 250 mg PO UTDICT #5 tablet 10/09/19 Pantoprazole Sodium [Protonix -] 20 mg PO DAILY #30 tablet.ec 10/09/19 Prednisone 10 mg PO DAILY #30 tablet 10/09/19 Roflumilast [Daliresp] 500 mcg PO DAILY #30 tab 10/09/19 REVIEW OF SYSTEMS CONSTITUTIONAL: Absent: fever, chills, diaphoresis, generalized weakness, malaise, loss of appetite, weight change HEENT: Absent: rhinorrhea, nasal congestion, throat pain, throat swelling, difficulty swallowing, mouth swelling, ear pain, eye pain, visual changes CARDIOVASCULAR: Absent: chest pain, syncope, palpitations, irregular heart rate, lightheadedness , peripheral edema RESPIRATORY: Absent: cough, shortness of breath, dyspnea with exertion, orthopnea, wheezing, stridor, hemoptysis GASTROINTESTINAL: Absent: abdominal pain, abdominal distension, nausea, vomiting, diarrhea, constipation, melena, hematochezia GENITOURINARY: Absent: dysuria, frequency, urgency, hesitancy, hematuria, flank pain, genital pain MUSCULOSKELETAL: Absent: myalgia, arthralgia, joint swelling, back pain, neck pain SKIN: Absent: rash, itching, pallor HEMATOLOGIC/IMMUNOLOGIC: Absent: easy bleeding, easy bruising, lymphadenopathy, frequent infections ENDOCRINE: Absent: unexplained weight gain, unexplained weight loss, heat intolerance, cold intolerance NEUROLOGIC: Absent: headache, focal weakness or paresthesias, dizziness, unsteady gait, seizure, mental status changes, bladder or bowel incontinence PSYCHIATRIC: Absent: anxiety, depression, suicidal or homicidal ideation, hallucinations. PHYSICAL EXAMINATION Vital Signs - 24 hr 11/07/19 11/07/19 11/07/19 16:30 17:00 22:33 Temperature 99.0 F Pulse Rate 103 H Pulse Rate [ 94 H Apical] Respiratory 16 18 20 Rate Blood Pressure 189/90 H Blood Pressure 152/78 124/93 [Right Arm] O2 Sat by Pulse 99 100 96 Oximetry (%) GENERAL: awake alert fully oriented no acute distress HEAD: normal EYES: pupils equal, round and reactive to light EARS, NOSE, THROAT: ears normal, nares patent, oropharynx clear without exudates NECK: normal range of motion LUNGS: breath sounds with wheezing and use of accessory muscles and +[place] nd on minimal conversation HEART: regular rate and rhythm, normal S1 and S2 without murmur, rub or gallop. ABDOMEN: soft, nontender, not distended, normoactive bowel sounds MUSCULOSKELETAL: normal range of motion at all joints UPPER EXTREMITIES: warm to touch no edema LOWER EXTREMITIES: warm well-perfused no pitting edema NEUROLOGICAL: normal speech no facial grimace PSYCHIATRIC: cooperative good eye contact SKIN: warm dry nail beds and lips pink Laboratory Results - last 24 hr 11/07/19 11/07/19 18:45 18:45 WBC 11.1 H RBC 4.32 Hgb 12.4 Hct 38.4 MCV 89.0 MCH 28.7 MCHC 32.2 RDW 18.8 H Plt Count 332 D MPV 7.5 D Absolute Neuts (auto) 10.6 H Neutrophils % 95.8 H Lymphocytes % 3.7 L Monocytes % 0.4 L Eosinophils % 0.0 Basophils % 0.1 Nucleated RBC % 0 Sodium 140 Potassium 3.8 Chloride 100 Carbon Dioxide 37 H Anion Gap 3 L BUN 17.2 Creatinine 0.8 Est GFR (CKD-EPI)AfAm 84.77 Est GFR (CKD-EPI)NonAf 73.14 Random Glucose 138 H Calcium 9.3 Total Bilirubin 0.8 AST 23 ALT 28 Alkaline Phosphatase 73 Creatine Kinase 83 Troponin I 0.04 B-Natriuretic Peptide 1316.2 H Total Protein 6.6 Albumin 3.8 ASSESSMENT/PLAN: 74 year old female with past medical history significant for bladder cancer, hypertension, coronary artery disease with stents in 2008,abdominal aortic aneurysm, and COPD (uses NC at 3-4L 24 hrs/day, oxygen saturation upper 80's- low 90's at baseline) who presented with shortness of breath and white productive cough which started yesterday and worsened today. #1 Dyspnea on Miniml exertion in Setting of COPD Exacerbation CXR w/ mild atelectasis at right base , WBC 11,000, differential abnp(on prednisone at home), Treated w/ received IV Solumedrol 125mg once and duoneb treatment with improvement in symptoms(oxygen saturation in the upper 80's and low 90's) Continue with albuterol nebulizers q6hr Continue with IV solumedrol 40mg q8hr Sputum culture ordered Pulmonary consulted- Dr. Lackey #2 Elevated BNP noted to have BNP in the 900's this past summer does not appear to be fluid overloaded on exam #3 Hypertension Initially elevated, now improved Continue with losartan and amlodipine #4 CAD with hx Coronary Stents Troponin normal Continue with plavix and statin therapy DVT Prophylaxsis Lovenox 40 mg daily FEN low sodium diet monitor electrolytes closely Visit type - Emergency Visit Emergency Visit: Yes ED Registration Date: 11/07/19 Care time: The patient presented to the Emergency Department on the above date and was hospitalized for further evaluation of their emergent condition. - New Patient This patient is new to me today: Yes Date on this admission: 11/08/19 - Critical Care Critical Care patient: No
[2019-11-08 01:11] LABS: ANISOCYTOSIS 0; HELMET CELLS 0; HOWELL-JOLLY BODIES 0; MACROCYTOSIS 0; OVALOCYTE 0; PLATELET ESTIMATE NORMAL; ROULEAU 0; SICKELED CELLS 0; TARGET CELLS 0; TEAR DROP CELLS 0; TOXIC GRANULATION 0
[2019-11-08] MEDS ORDERED: methylPREDNISolone NA SUCC 40 MG/1 ML VIAL ONE (02:24)
[2019-11-08] MEDS: methylPREDNISolone NA SUCC 40 MG/1 ML VIAL IVPUSH SCH ×3 (02:37→18:33)
[2019-11-08] MEDS: ALBUTEROL SO4 0.083% IH SOL 2.5 MG/3 ML VIAL.NEB. NEB SCH ×2 (07:25→11:00)
[2019-11-08] MEDS ORDERED: CLOPIDOGREL BISULFATE 75 MG TABLET (FP) PO SCH (10:00)
[2019-11-08] MEDS ORDERED: LOSARTAN POTASSIUM 50 MG TABLET (FP) PO SCH (10:00)
[2019-11-08] MEDS ORDERED: PANTOPRAZOLE 20 MG TABLET PO SCH (10:00)
[2019-11-08] MEDS ORDERED: ENOXAPARIN NA (PORCINE) 40 MG/0.4 ML DISP.SYRIN SQ SCH (10:00)
[2019-11-08] MEDS ORDERED: amLODIPine BESYLATE 5 MG TABLET (FP) PO SCH (10:00)
[2019-11-08] MEDS ORDERED: LACTOBACILLUS ACIDOPHILUS 1 TABLET PO SCH (10:00)
[2019-11-08] MEDS ORDERED: ALPRAZolam 0.25 MG TABLET PO SCH (10:00)
[2019-11-08] MEDS ORDERED: PATIENT'S OWN MEDICATION (NON-FORMULARY) (Losartan Potassium [Losartan Potassium] 100 MG) PO SCH (10:00)
[2019-11-08] MEDS ORDERED: ROFLUMILAST 500 MCG TABLET PO SCH (10:00)
[2019-11-08] MEDS ORDERED: PT OWN MED DRAWER 7, Y5N ONE (10:02)
--- NOTE | 2019-11-08 11:12 | CON.PULM ---
Consult Consult Specialty:: PULMONARY Referred by:: Dr Gutiérrez Reason for Consultation:: COPD - History of Present Illness Chief Complaint: shortness of breath History of Present Illness: 74yo female with h/o COPD, chronic hypoxic respiratory failure on home O2, CAD, AAA, bladder ca, HTN who was admitted with worsening shortness of breath and cough. Denies chest pain. No sick contacts or recent travel. +cough productive of white sputum and wheezing. Was given a course of low dose prednisone as outpt without improvement. Still smoking. - History Source History Provided By: Patient, Medical Record Limitations to Obtaining History: Clinical Condition - Past Medical History Cardio/Vascular: Yes: CAD, Hyperlipdemia, Other (pci stent) Pulmonary: Yes: COPD Renal/: Yes: Renal Inusuff, Other (bladder cancer) Psych: Yes: Addictions (nicotine) - Alcohol/Substance Use Hx Alcohol Use: No - Smoking History Smoking history: Never smoked Have you smoked in the past 12 months: Yes Aproximately how many cigarettes per day: 3 - Social History ADL: Independent History of Recent Travel: No Home Medications - Allergies Allergies/Adverse Reactions: Allergies Allergy/AdvReac Type Severity Reaction Status Date / Time No Known Drug Allergies Allergy Verified 11/07/19 16:46 - Home Medications Home Medications: Ambulatory Orders Amlodipine Besylate 5 mg PO DAILY 05/08/16 Losartan Potassium 100 mg PO DAILY 05/08/16 Clopidogrel Bisulfate [Plavix -] 75 mg PO DAILY #0 05/12/16 Atorvastatin Ca [Lipitor] 80 mg PO HS tablet 11/03/16 Lactobacillus Acidophilus [Bacid -] 1 tab PO BID #60 tab 11/03/16 Albuterol 2.5/Ipratropium 0.5 [Duoneb -] 1 amp NEB RQID amp 04/26/18 Alprazolam [Xanax] 0.25 mg PO BID #20 tablet MDD 2 04/26/18 Tiotropium Br/Olodaterol HCl [Stiolto Respimat Inhal [place]] 2 puff IH DAILY Tiotropium [place] [Spiriva] 18 mcg IH DAILY 04/26/19 Azithromycin [Zithromax -] 250 mg PO UTDICT #5 tablet 10/09/19 Pantoprazole Sodium [Protonix -] 20 mg PO DAILY #30 tablet.ec 12/29/19 Prednisone 10 mg PO DAILY #30 tablet 12/29/19 Roflumilast [Daliresp] 500 mcg PO DAILY #30 tab 10/09/19 Review of Systems - Review of Systems Constitutional: reports: Weakness. denies: Chills, Fever Eyes: denies: Recent Change in Vision HENT: denies: Nasal Congestion, Throat Pain Neck: denies: Stiffness, Tenderness Cardiovascular: reports: Shortness of Breath. denies: Chest Pain, Palpitations Respiratory: reports: Cough, SOB on Exertion, Wheezing. denies: Hemoptysis Gastrointestinal: denies: Abdominal Pain, Nausea, Vomiting Genitourinary: denies: Dysuria, Hematuria Neurological: denies: Dizziness, Headache Endocrine: denies: Unexplained Weight Loss Physical Exam Vital Sings: Vital Signs Temperature 98.6 F 11/08/19 08:45 Pulse Rate 91 H 11/08/19 08:45 Respiratory Rate 23 H 11/08/19 08:45 Blood Pressure 146/100 11/08/19 08:45 O2 Sat by Pulse Oximetry (%) 90 L 11/08/19 09:00 Constitutional: Yes: Moderate Distress Eyes: Yes: Conjunctiva Clear, EOM Intact HENT: Yes: Atraumatic, Normocephalic Neck: Yes: Supple, Trachea Midline Cardiovascular: Yes: Regular Rate and Rhythm Respiratory: Yes: Poor Air Entry, Rhonchi, Wheezes ...Clubbing: No Gastrointestinal: Yes: Normal Bowel Sounds, Soft. No: Tenderness Edema: No Neurological: Yes: Alert, Oriented Labs: CBC, BMP 11/07/19 18:45 11/07/19 18:45 Imaging - Results Chest X-ray: Report Reviewed, Image Reviewed (hyperinflated lungs, basilar atelectasis) Problem List - Problems (1) Acute on chronic respiratory failure with hypoxia and hypercapnia Code(s): J96.21 - ACUTE AND CHRONIC RESPIRATORY FAILURE WITH HYPOXIA; J96.22 - ACUTE AND CHRONIC RESPIRATORY FAILURE WITH HYPERCAPNIA (2) COPD exacerbation Code(s): J44.1 - CHRONIC OBSTRUCTIVE PULMONARY DISEASE W (ACUTE) EXACERBATION Assessment/Plan Acute on Chronic Hypoxic and Hypercapneic Respiratory Failure Acute COPD Exacerbation Acute Bronchitis CAD AAA h/o Bladder Ca HTN Smoker - IV medrol - inhaled bronchodilators standing and PRN - O2 to keep Spo2 >90% - trial of BiPAP to assist in work of breathing - antibiotics - DVT prophylaxis - if no improvement with BiPAP, may need monitored setting - smoking cessation Thank you for this consult Gordon Segovia MD
[2019-11-08] MEDS: NYSTATIN 500,000 UNITS/5 ML SUSPENSION PO SCH ×2 (11:49→18:16)
--- NOTE | 2019-11-08 12:01 | EKG ---
Test Reason : Blood Pressure : / mmHG Vent. Rate : 085 BPM Atrial Rate : 085 BPM P-R Int : 134 ms QRS Dur : 094 ms QT Int : 376 ms P-R-T Axes : 080 -14 098 degrees QTc Int : 447 ms NORMAL SINUS RHYTHM MINIMAL VOLTAGE CRITERIA FOR LVH, MAY BE NORMAL VARIANT INFERIOR INFARCT , AGE UNDETERMINED ANTERIOR INFARCT , AGE UNDETERMINED NON-SPECIFIC INTRA-VENTRICULAR CONDUCTION DELAY ABNORMAL ECG Confirmed by MD LUIS, NIOT ([id number]) on 11/08/2019 12:00:52 PM Referred By: Confirmed By:NITO SMITH MD
--- NOTE | 2019-11-08 13:03 | PN ---
Progress Note, Physician Chief Complaint: COPD Exacerbation History of Present Illness: Previous notes and events reviewed awake and alert mild distress on Bipap complain of SOB with exertion denies chest pain on exam O2 sat 85% on Bipap, patient using accessory muscle and is tachypneic, spoke with Dr Segovia and will transfer patient to ICU for closer monitoring - Current Medication List Current Medications: Active Medications Albuterol Sulfate (Ventolin 0.083% Nebulizer Soln -) 1 amp NEB RQID [facility] Last Admin: 11/08/19 07:25 Dose: 1 amp Alprazolam (Xanax -) 0.25 mg PO BID [facility] Last Admin: 11/08/19 10:05 Dose: 0.25 mg Amlodipine Besylate (Norvasc -) 5 mg PO DAILY [facility] Last Admin: 11/08/19 10:05 Dose: 5 mg Atorvastatin Calcium (Lipitor -) 80 mg PO HS [facility] Clopidogrel Bisulfate (Plavix -) 75 mg PO DAILY [facility] Last Admin: 11/08/19 10:05 Dose: 75 mg Enoxaparin Sodium (Lovenox -) 40 mg SQ DAILY [facility] Last Admin: 11/08/19 10:06 Dose: 40 mg Lactobacillus Acidophilus (Bacid -) 1 tab PO BID [facility] Last Admin: 11/08/19 10:04 Dose: 1 tab Losartan Potassium (Cozaar -) 100 mg PO DAILY [facility] Last Admin: 11/08/19 10:04 Dose: 100 mg Methylprednisolone Sodium Succinate (Solu-Medrol -) 40 mg IVPUSH Q8H-IV [facility] Last Admin: 11/08/19 10:05 Dose: 40 mg Nystatin (Nystatin Oral Suspension -) 500,000 units PO Q6HPO [facility] Last Admin: 11/08/19 11:49 Dose: 500,000 units Pantoprazole Sodium (Protonix -) 20 mg PO DAILY [facility] Last Admin: 11/08/19 10:05 Dose: 20 mg Roflumilast (Daliresp) 500 mcg PO DAILY [facility] Last Admin: 11/08/19 11:48 Dose: 500 mcg - Objective Vital Signs: Vital Signs Temperature 98.6 F 11/08/19 08:45 Pulse Rate 82 11/08/19 11:55 Respiratory Rate 23 H 11/08/19 08:45 Blood Pressure 133/61 11/08/19 11:55 O2 Sat by Pulse Oximetry (%) 90 L 11/08/19 09:00 Constitutional: Yes: Cachectic, Mild Distress Eyes: Yes: Conjunctiva Clear HENT: Yes: Atraumatic Cardiovascular: Yes: Regular Rate and Rhythm Respiratory: Yes: Accessory Muscle Use, Cough, On BiPap, Rhonchi, Tachypnea, Wheezes Gastrointestinal: Yes: Normal Bowel Sounds, Soft Musculoskeletal: Yes: Muscle Weakness Extremities: Yes: WNL Edema: No Neurological: Yes: Alert, Oriented Psychiatric: Yes: Alert, Oriented Labs: CBC, BMP 11/07/19 18:45 11/07/19 18:45 Problem List - Problems (1) Acute on chronic respiratory failure with hypercapnia Assessment/Plan: -Pulmonary on board -CXR shows no acute chest pathology -Bipap -IV Solumedrol -bronchodilators -will transfer patient to ICU for closer monitoring -keep SpO2 >90% -Daliresp -sputum culture pending -Influenza A & B rapid ordered Code(s): J96.22 - ACUTE AND CHRONIC RESPIRATORY FAILURE WITH HYPERCAPNIA (2) Anxiety Assessment/Plan: -Xanax BID Code(s): F41.9 - ANXIETY DISORDER, UNSPECIFIED (3) Bladder cancer Assessment/Plan: -follow up with Oncology as scheduled Code(s): C67.9 - MALIGNANT NEOPLASM OF BLADDER, UNSPECIFIED (4) CAD (coronary artery disease) Assessment/Plan: -Atorvastatin and Plavix Code(s): I25.10 - ATHSCL HEART DISEASE OF [place] CORONARY ARTERY W/O ANG PCTRS (5) COPD exacerbation Assessment/Plan: -Pulmonary on board -CXR shows no acute chest pathology -Bipap -IV Solumedrol -bronchodilators -will transfer patient to ICU for closer monitoring -keep SpO2 >90% -Daliresp Code(s): J44.1 - CHRONIC OBSTRUCTIVE PULMONARY DISEASE W (ACUTE) EXACERBATION (6) Chronic diastolic CHF (congestive heart failure) Assessment/Plan: -Cardiology consult -1L fluid restriction -low Na diet -strict I&Os -BNP 1316.2 Code(s): I50.32 - CHRONIC DIASTOLIC (CONGESTIVE) HEART FAILURE (7) HTN (hypertension) Assessment/Plan: -Amlodipine, Losartan -low Na diet Code(s): I10 - ESSENTIAL (PRIMARY) HYPERTENSION Assessment/Plan see problem list dvt ppx
[2019-11-08 13:15] LABS: HEMATOCRIT 35.3 % (32.4-45.2); HEMOGLOBIN 11.3 GM/dL (10.7-15.3); MCH 28.4 pg (25.7-33.7); MCHC 32.1 g/dl (32.0-36.0); MEAN CELL VOLUME 88.6 fl (80-96); MEAN PLT VOLUME 7.8 fl (7.5-11.1); PLATELET COUNT 323 K/MM3 (134-434); RBC 3.99 M/mm3 (3.60-5.2); RDW 19.1 % (11.6-15.6); WHITE BLOOD COUNT 17.9 K/mm3 (4.0-10.0)
[2019-11-08 13:43] LABS: BLOOD UREA NITROGEN 28.8 mg/dL (7-18); CALCIUM 9.3 mg/dL (8.5-10.1); CREATININE 0.8 mg/dL (0.55-1.3); POTASSIUM 4.1 mmol/L (3.5-5.1)
--- NOTE | 2019-11-08 14:12 | CON.CARD ---
Consult Consult Specialty:: Cardiology Referred by:: Gloria Perdue/ Dr. Gutiérrez Reason for Consultation:: SOB - History of Present Illness Chief Complaint: SOB History of Present Illness: Assessment/Plan 74F COPD, CAD s/p PCI prox, mid LAD, RCA (all patent on cath 2013), chronic diastolic CHF, HTN, smoker, small descending thoracic aortic aneurysm admitted to [facility] on 11/07 complaining of shortness of breath, acute COPD exacerbation. She denies chest pain, edema, palpitations. On medical floor today noted to have worsening SOB/work of breathing ; being transferred to ICU by pulmonary team. - History Source History Provided By: Patient Limitations to Obtaining History: No Limitations - Past Medical History Cardio/Vascular: Yes: CAD, Hyperlipdemia, Other (pci stent) Pulmonary: Yes: COPD Renal/: Yes: Renal Inusuff, Other (bladder cancer) Psych: Yes: Addictions (nicotine) - Alcohol/Substance Use Hx Alcohol Use: No - Smoking History Smoking history: Current every day smoker Have you smoked in the past 12 months: Yes Aproximately how many cigarettes per day: 3 - Social History ADL: Independent History of Recent Travel: No Home Medications - Allergies Allergies/Adverse Reactions: Allergies Allergy/AdvReac Type Severity Reaction Status Date / Time No Known Drug Allergies Allergy Verified 11/07/19 16:46 - Home Medications Home Medications: Ambulatory Orders Amlodipine Besylate 5 mg PO DAILY 05/08/16 Losartan Potassium 100 mg PO DAILY 05/08/16 Clopidogrel Bisulfate [Plavix -] 75 mg PO DAILY #0 05/12/16 Atorvastatin Ca [Lipitor] 80 mg PO HS tablet 11/03/16 Lactobacillus Acidophilus [Bacid -] 1 tab PO BID #60 tab 11/03/16 Albuterol 2.5/Ipratropium 0.5 [Duoneb -] 1 amp NEB RQID amp 04/26/18 Alprazolam [Xanax] 0.25 mg PO BID #20 tablet MDD 2 04/26/18 Tiotropium Br/Olodaterol HCl [Stiolto Respimat Inhal [place]] 2 puff IH DAILY Tiotropium Mcn[place] [Spiriva] 18 mcg IH DAILY 04/26/19 Azithromycin [Zithromax -] 250 mg PO UTDICT #5 tablet 10/09/19 Pantoprazole Sodium [Protonix -] 20 mg PO DAILY #30 tablet.ec 10/09/19 Prednisone 10 mg PO DAILY #30 tablet 10/09/19 Roflumilast [Daliresp] 500 mcg PO DAILY #30 tab 10/09/19 Family Medical History Family History: Unremarkable Review of Systems Findings/Remarks: see HPI - Review of Systems Constitutional: reports: Weakness Cardiovascular: reports: Shortness of Breath Respiratory: reports: Cough, SOB Gastrointestinal: denies: No Symptoms, Abdominal Pain, Bloating, Constipation, Diarrhea, Dysphagia, Indigestion, Melena, Nausea, Rectal Bleeding, Vomiting, Vomiting Blood, Other Genitourinary: denies: No Symptoms, Burning, Discharge, Dysuria, Flank Pain, Frequency, Hematuria, Incontinence, Lesions, Menses, Pain, Testicular Mass, Testicular Pain, Testicular Swelling, Urgency, Vaginal Bleeding, Other Breasts: denies: No Symptoms Reported, See HPI, Breast Implants, Discharge from Nipple, Lumps, Pain, Skin Changes, Other Musculoskeletal: denies: No Symptoms, Back Pain, Crepitus, Decreased ROM, Extremity Pain, Joint Pain, Joint Swelling, Muscle Pain, Muscle Cramps, Muscle Weakness, Other Integumentary: denies: No Symptoms, Blister, Bruising, Change in Color, Eczema, Erythema, Incision, Lesions, Lump, Pallor, Pruritis, Rash, Wound, Other Neurological: denies: No Symptoms, Change in LOC, Change in Speech, Confusion, Dizziness, Headache, Incoordination, Numbness, Parasthesia, Pre-Existing Deficit , Seizure, Syncope, Tremors, Unsteady Gait, Weakness, Other Endocrine: denies: No Symptoms, Excessive Sweating, Flushing, Increased Hunger, Increased Thirst, Intolerance to Cold, Intolerance to Heat, Unexplained Weight Gain, Unexplained Weight Loss, Other Hematology/Lymphatic: denies: No Symptoms, Easily Bruised, Excessive Bleeding, Swollen Glands, Other Psychiatric: denies: No Symptoms, Altered Sleep Pattern, Anxiety, Depression, Hallucinations, Panic, Paranoia, Suicidal, Other - Risk Factors Known Risk Factors: Yes: Hypertension, Smoking, Other (Known CAD, non- obstructive.) Vital Signs: Vital Signs Temperature 98.6 F 11/08/19 08:45 Pulse Rate 82 11/08/19 11:55 Respiratory Rate 23 H 01/28/20 08:45 Blood Pressure 133/61 01/28/20 11:55 O2 Sat by Pulse Oximetry (%) 90 L 11/08/19 09:00 Constitutional: Yes: No Distress, Calm Eyes: Yes: Conjunctiva Clear Respiratory: Yes: Other (severely reduced breath sounds b/l; no active wheezing ; no rales.) Gastrointestinal: Yes: Soft JVD: No Heart Sounds: Yes: S1, S2 (rrr) Edema: No (warm) Neurological: Yes: Alert - Other Data Labs, Other Data: CBC, BMP 11/08/19 12:30 11/08/19 12:30 Troponin, BNP 11/07/19 18:45 Troponin I 0.04 B-Natriuretic Peptide 1316.2 H Troponin, BNP 11/07/19 18:45 Troponin I 0.04 B-Natriuretic Peptide 1316.2 H Laboratory Tests 11/07/19 11/08/19 11/08/19 18:45 12:30 12:30 WBC 17.9 H Hgb 11.3 Plt Count 323 Sodium 138 Potassium 4.1 Creatinine 0.8 B-Natriuretic Peptide 1316.2 H Echo: Report Reviewed Prior Cardiac Procedures: Cardiac Catheterization Ejection Fraction %: LVEF > or = 40 % Imaging - Results Chest X-ray: Image Reviewed (Hyperinflated. No infiltrates or effusions) EKG: Image Reviewed (NSR, old IWMI pattern, poor R wave progression- no change from prior) Assessment/Plan DATA: Echo 04/2019- Normal LVEF. E:A reversal c/w early diastolic dysfx, RV not well seen. IMP/PLAN: 1. Acute respiratory failure: secondary to acute on chronic advanced COPD -NIPPV as per Critical Care Team, decision re intubation as per critical care/ ICU team -Steroid taper -PPI 2. Chronic CAD, remote pci, w/o angina: -mult prior stents (prox and mid LAD, entire RCA and RPDA) all patent on cath 2013 -no angina (chronic sob with chest pressure is copd sx--present prior to cath and unchanged since) -no signs acs -cont plavix, statin, arb 3. Chronic diast chf: -borderline depressed LVEF (45% on v-gram, 50% echo 2015) with moderately incr' d LVEDP at cath (24) -never clinical chf, no sob response to trial of lasix in past -BNP has always been elevated and near 1000 range. -appears euvolemic, CXR no congestion -no diuretics at this point 3. HTN: -known bp lability from anxiety at times -stable, cont home meds 4.HPL: -cont home statin 5. +cigs: -previously counselled on cessation many times, not interested in quitting 6. Descending thoracic aortic aneurysm: -3.[address] chest 04/2019 -cont bp control - outpatient follow up for monitoring
[2019-11-08] MEDS ORDERED: PROPOFOL 1,000,000 MCG/100 ML VIAL ONE (14:24)
[2019-11-08] MEDS ORDERED: MIDAZOLAM HCL 5 MG/1 ML Single Dose Vial ONE (14:24)
[2019-11-08] MEDS ORDERED: methylPREDNISolone NA SUCC 125 MG/2 ML VIAL ONE (14:51)
[2019-11-08] MEDS ORDERED: methylPREDNISolone NA SUCC 125 MG/2 ML VIAL IVPUSH ONE (14:56)
[2019-11-08] MEDS ORDERED: ALBUTEROL SO4 0.083% IH SOL 2.5 MG/3 ML VIAL.NEB. NEB PRN (15:11)
[2019-11-08] MEDS ORDERED: ALPRAZolam 0.25 MG TABLET PO PRN (15:18)
--- NOTE | 2019-11-08 15:18 | PN ---
Physical Exam: SUBJECTIVE: We have consulted to evaluate the patient for ICU transfer for hypoxia. 74F w/ pmhx of COPD (on 3L NC at home), current everyday smoker, HTN/HLD, bladder ca, presented in the hospital for sob, cough with white sputum. Of note , prior to hospital admission, pt was seen by her machine tool builder as an outpatient after which she completed a 4 day treatment of oral Prednisone started last . She was admitted overnight for COPD exacerbation and started on steroids, duonebs. Today, she was found to have increased work of breathing with desaturation. Pt was started on bi-level, still with increased work of breathing saturating at 86% (EPAP/IPAP 10/5). Upon exam, pt was AAOx3, able to converse, but with visible accessory muscle use noted. She denies chest pain, f/c, n/v, abd pain. OBJECTIVE: Vital Signs Period Temp Pulse Resp BP Sys/Lock Pulse Ox Last 24 Hr 98.3 F-99.0 F 82-103 16-24 124-189/61-100 90-100 GENERAL: AAOx3. Mildly distressed. Thin, frail, elderly female. HEENT: AT/NC. EOMI. Dry mucus membranes. NECK: Trachea midline, full range of motion, supple. LUNGS: B/l expiratory wheezes, decreased breath sounds b/l bases. On bi-level. Accessory muscle use noted. HEART: RRR. Normal S1, S2. ABDOMEN: Soft, NT/ND. Normoactive bowel sounds. EXTREMITIES: 2+ pulses, warm, well-perfused, no edema. NEUROLOGICAL: Moves all extremities. Follow commands appropriately. PSYCH: Normal mood, normal affect. SKIN: Warm, dry, normal turgor, no rashes or lesions noted Laboratory Results - last 24 hr 11/07/19 11/07/19 11/08/19 18:45 18:45 12:30 WBC 11.1 H 17.9 H RBC 4.32 3.99 Hgb 12.4 11.3 Hct 38.4 35.3 MCV 89.0 88.6 MCH 28.7 28.4 MCHC 32.2 32.1 RDW 18.8 H 19.1 H Plt Count 332 D 323 MPV 7.5 D 7.8 Absolute Neuts (auto) 10.6 H Neutrophils % 95.8 H Neutrophils % (Manual) 89.0 H Band Neutrophils % 9.0 Lymphocytes % 3.7 L Lymphocytes % (Manual) 2.0 L D Monocytes % 0.4 L Monocytes % (Manual) 0 L D Eosinophils % 0.0 Eosinophils % (Manual) 0.0 Basophils % 0.1 Basophils % (Manual) 0.0 Myelocytes % (Man) 0 Promyelocytes % (Man) 0 Blast Cells % (Manual) 0 Nucleated RBC % 0 Metamyelocytes 0 Hypochromia 0 Toxic Granulation 0 Dohle Bodies 0 Platelet Estimate Normal Polychromasia 0 Poikilocytosis 0 Basophilic Stippling 0 Anisocytosis 0 Microcytosis 0 Macrocytosis 0 Spherocytes 0 Sickle Cells 0 Target Cells 0 Tear Drop Cells 0 Ovalocytes 0 Stomatocytes 0 Helmet Cells 0 [place] Bodies 0 Dalton Rings 0 Sherrie Cells 0 Acanthocytes (Spur) 0 Rouleaux 0 Fragmented RBCs 0 Schistocytes 0 Sodium 140 Potassium 3.8 Chloride 100 Carbon Dioxide 37 H Anion Gap 3 L BUN 17.2 Creatinine 0.8 Est GFR (CKD-EPI)AfAm 84.77 Est GFR (CKD-EPI)NonAf 73.14 Random Glucose 138 H Calcium 9.3 Total Bilirubin 0.8 AST 23 ALT 28 Alkaline Phosphatase 73 Creatine Kinase 83 Troponin I 0.04 B-Natriuretic Peptide 1316.2 H Total Protein 6.6 Albumin 3.8 Influenza A (Rapid) Influenza B (Rapid) 11/08/19 11/08/19 12:30 14:00 WBC RBC Hgb Hct MCV MCH MCHC RDW Plt Count MPV Absolute Neuts (auto) Neutrophils % Neutrophils % (Manual) Band Neutrophils % Lymphocytes % Lymphocytes % (Manual) Monocytes % Monocytes % (Manual) Eosinophils % Eosinophils % (Manual) Basophils % Basophils % (Manual) Myelocytes % (Man) Promyelocytes % (Man) Blast Cells % (Manual) Nucleated RBC % Metamyelocytes Hypochromia Toxic Granulation Dohle Bodies Platelet Estimate Polychromasia Poikilocytosis Basophilic Stippling Anisocytosis Microcytosis Macrocytosis Spherocytes Sickle Cells Target Cells Tear Drop Cells Ovalocytes Stomatocytes Helmet Cells [place]yes[place] Bodies Dalton Rings Sherrie Cells Acanthocytes (Spur) Rouleaux Fragmented RBCs Schistocytes Sodium 138 Potassium 4.1 Chloride 97 L Carbon Dioxide 37 H Anion Gap 4 L BUN 28.8 H Creatinine 0.8 Est GFR (CKD-EPI)AfAm 84.77 Est GFR (CKD-EPI)NonAf 73.14 Random Glucose 119 H Calcium 9.3 Total Bilirubin AST ALT Alkaline Phosphatase Creatine Kinase Troponin I B-Natriuretic Peptide Total Protein Albumin Influenza A (Rapid) Negative Influenza B (Rapid) Negative Active Medications Albuterol Sulfate (Ventolin 0.083% Nebulizer Soln -) 1 amp NEB Q3H PRN PRN Reason: SHORTNESS OF BREATH Albuterol/Ipratropium (Duoneb -) 1 amp NEB RQID [facility] Alprazolam (Xanax -) 0.25 mg PO BID [facility] Last Admin: 11/08/19 10:05 Dose: 0.25 mg Amlodipine Besylate (Norvasc -) 5 mg PO DAILY [facility] Last Admin: 11/08/19 10:05 Dose: 5 mg Atorvastatin Calcium (Lipitor -) 80 mg PO HS [facility] Chlorhexidine Gluconate (Hibiclens For Decolonization -) 1 applic TP HS [facility] Clopidogrel Bisulfate (Plavix -) 75 mg PO DAILY [facility] Last Admin: 11/08/19 10:05 Dose: 75 mg Enoxaparin Sodium (Lovenox -) 40 mg SQ DAILY [facility] Last Admin: 11/08/19 10:06 Dose: 40 mg Lactobacillus Acidophilus (Bacid -) 1 tab PO BID [facility] Last Admin: 11/08/19 10:04 Dose: 1 tab Losartan Potassium (Cozaar -) 100 mg PO DAILY [facility] Last Admin: 11/08/19 10:04 Dose: 100 mg Methylprednisolone Sodium Succinate (Solu-Medrol -) 80 mg IVPUSH Q8H-IV [facility] Mupirocin (Bactroban Ointment (For Decolonization) -) 1 applic NS BID [facility] Stop: 11/13/19 21:59 Nystatin (Nystatin Oral Suspension -) 500,000 units PO Q6HPO [facility] Last Admin: 11/08/19 11:49 Dose: 500,000 units Pantoprazole Sodium (Protonix -) 20 mg PO DAILY [facility] Last Admin: 11/08/19 10:05 Dose: 20 mg Roflumilast (Daliresp) 500 mcg PO DAILY [facility] Last Admin: 11/08/19 11:48 Dose: 500 mcg ASSESSMENT/PLAN: 74F w/ pmhx of COPD (on 3-4L NC at home), current everyday smoker, HTN/HLD, bladder ca, presented in the hospital for sob, cough with white sputum admitted for COPD exacerbation. Neuro -AAOx3, mentating well. -Neuro checks CV Hx of HTN/HLD Hx of CAD (s/p stents) Hx of AAA; no acute issues. Cont outpatient monitoring. -Cont home meds: Amlo 5, Losartan 100, Lipitor 80, Pulm Acute on Chronic Hypoxic/Hypercapneic Respiratory Failure Acute COPD Exacerbation Chronic Tobacco Use -Currently on bi-level: RR 12, E/I 12/6, FiO2 40%. Cont to monitor O2 sat maintain above 88%. -ABG ordered; pending results -CXR in AM -Solumedrol 80 Q8H IVP -Duonebs QID -Alb nebs Q3H PRN -Smoking cessation counseling ID -Sputum cx/Flu swab pending Prophylaxis DVT: Lovenox GI: Protonix 20 FEN -PO hydration -Recheck lytes in AM -Sodium-controlled diet Dispo -Transfer to ICU for close monitoring of airway management Visit type - Emergency Visit Emergency Visit: Yes ED Registration Date: 11/07/19 Care time: The patient presented to the Emergency Department on the above date and was hospitalized for further evaluation of their emergent condition. - New Patient This patient is new to me today: Yes Date on this admission: 11/08/19 - Critical Care Critical Care patient: Yes Total Critical Care Time (in minutes): 36 Critical Care Statement: The care of this patient involved high complexity decision making to prevent further life threatening deterioration of the patient 's condition and/or to evaluate & treat vital organ system(s) failure or risk of failure. ATTENDING PHYSICIAN STATEMENT I saw and evaluated the patient. I reviewed the resident's note and discussed the case with the resident. I agree with the resident's findings and plan as documented. SUBJECTIVE: OBJECTIVE: ASSESSMENT AND PLAN:
[2019-11-08 15:38] LABS: ARTERIAL BLD GAS O2 SATURATION 99.8 % (95-98); ARTERIAL BLOOD GAS BASE EXCESS 12.9 meq/l (-2-2); ARTERIAL BLOOD GAS PCO2 27.4 mmHg (35-45); ARTERIAL BLOOD GAS PO2 183 mmHg (80-100)
[2019-11-08] MEDS: ALBUTEROL SO4 2.5/IPRATROPIUM 0.5 INH SOL 3 ML VIAL.NEB. NEB SCH ×2 (15:50→20:30)
[2019-11-08 19:06] LABS: ARTERIAL BLD GAS O2 SATURATION 92.8 % (95-98); ARTERIAL BLOOD GAS BASE EXCESS 13.3 meq/l (-2-2); ARTERIAL BLOOD GAS PCO2 62.8 mmHg (35-45); ARTERIAL BLOOD GAS PO2 67.5 mmHg (80-100); ARTERIAL BLOOD GAS pH 7.42 (7.35-7.45)
[2019-11-08 19:07] LABS: ALLENS TEST POSITIVE
[2019-11-08] MEDS ORDERED: ATORVASTATIN CA 80 MG TABLET (FP) PO SCH (22:00)
[2019-11-08] MEDS: LACTOBACILLUS ACIDOPHILUS 1 TABLET PO SCH (22:27)
[2019-11-08] MEDS: ATORVASTATIN CA 80 MG TABLET (FP) PO SCH (22:27)
[2019-11-08] MEDS: CHLORHEXIDINE GLUCONATE 4% CLEANSER FOR DECOLONIZATION TP SCH (22:28)
[2019-11-08] MEDS: MUPIROCIN 2% TOPICAL OINTMENT FOR DECOLONIZATION NS SCH (22:28)
[2019-11-09] MEDS: methylPREDNISolone NA SUCC 40 MG/1 ML VIAL IVPUSH SCH ×3 (01:20→17:27)
[2019-11-09 06:28] LABS: HEMATOCRIT 35.3 % (32.4-45.2); HEMOGLOBIN 11.5 GM/dL (10.7-15.3); MCH 28.4 pg (25.7-33.7); MCHC 32.5 g/dl (32.0-36.0); MEAN CELL VOLUME 87.6 fl (80-96); MEAN PLT VOLUME 7.7 fl (7.5-11.1); PLATELET COUNT 313 K/MM3 (134-434); RBC 4.03 M/mm3 (3.60-5.2); RDW 19.3 % (11.6-15.6); WHITE BLOOD COUNT 15.8 K/mm3 (4.0-10.0)
[2019-11-09 06:42] LABS: ALBUMIN 3.4 g/dl (3.4-5.0); BLOOD UREA NITROGEN 32.7 mg/dL (7-18); CALCIUM 9.4 mg/dL (8.5-10.1); CREATININE 0.8 mg/dL (0.55-1.3); POTASSIUM 4.5 mmol/L (3.5-5.1); TOT PROT 5.8 g/dl (6.4-8.2)
[2019-11-09 07:17] LABS: MAGNESIUM 2.7 mg/dL (1.8-2.4); PHOSPHOROUS 3.8 mg/dL (2.5-4.9)
[2019-11-09] MEDS: ALBUTEROL SO4 2.5/IPRATROPIUM 0.5 INH SOL 3 ML VIAL.NEB. NEB SCH ×4 (08:15→20:30)
--- NOTE | 2019-11-09 09:13 | PN ---
Teaching Attending Note Name of Resident: Eulalia Valdes ATTENDING PHYSICIAN STATEMENT I saw and evaluated the patient. I reviewed the resident's note and discussed the case with the resident. I agree with the resident's findings and plan as documented. SUBJECTIVE: Patient seen and examined in the ICU. Awake and alert on NIPPV support. Trailed on NC O2 and quickly desaturated. No CP. SOB is a little better. Intake & Output 11/06/19 11/07/19 11/08/19 11/09/19 23:59 23:59 23:59 23:59 Intake Total 100 50 Balance 100 50 Weight 90 lb 89 lb 5 oz 95 lb 0.308 oz Last Vital Signs Temp Pulse Resp BP Pulse Ox 98.2 F 62 23 H 167/76 94 L 11/09/19 02:00 11/09/19 08:00 11/09/19 08:00 11/09/19 08:00 11/09/19 04:15 Active Medications Albuterol Sulfate (Ventolin 0.083% Nebulizer Soln -) 1 amp NEB Q3H PRN PRN Reason: SHORTNESS OF BREATH Albuterol/Ipratropium (Duoneb -) 1 amp NEB RQID [facility] Last Admin: 11/08/19 20:30 Dose: 1 amp Alprazolam (Xanax -) 0.25 mg PO Q12H PRN PRN Reason: ANXIETY Amlodipine Besylate (Norvasc -) 5 mg PO DAILY [facility] Atorvastatin Calcium (Lipitor -) 80 mg PO HS [facility] Last Admin: 11/08/19 22:27 Dose: 80 mg Chlorhexidine Gluconate (Hibiclens For Decolonization -) 1 applic TP HS [facility] Last Admin: 11/08/19 22:28 Dose: 1 applic Clopidogrel Bisulfate (Plavix -) 75 mg PO DAILY [facility] Enoxaparin Sodium (Lovenox -) 40 mg SQ DAILY [facility] Lactobacillus Acidophilus (Bacid -) 1 tab PO BID [facility] Last Admin: 11/08/19 22:27 Dose: 1 tab Losartan Potassium (Cozaar -) 100 mg PO DAILY [facility] Methylprednisolone Sodium Succinate (Solu-Medrol -) 80 mg IVPUSH Q8H-IV [facility] Last Admin: 11/09/19 01:20 Dose: 80 mg Mupirocin (Bactroban Ointment (For Decolonization) -) 1 applic NS BID [facility] Stop: 11/13/19 21:59 Last Admin: 11/08/19 22:28 Dose: 1 applic Nystatin (Nystatin Oral Suspension -) 500,000 units PO Q6HPO [facility] Pantoprazole Sodium (Protonix -) 20 mg PO DAILY [facility] Roflumilast (Daliresp) 500 mcg PO DAILY [facility] Roflumilast (Daliresp) 500 mcg PO DAILY [facility] Stop: 11/09/19 10:01 Constitutional: Yes: Mildly tachypneic on NIPPV support Eyes: Yes: Conjunctiva Clear, EOM Intact HENT: Yes: Atraumatic, Normocephalic Neck: Yes: Supple, Trachea Midline Cardiovascular: Yes: Regular Rate and Rhythm Respiratory: Yes: Bilateral Rhonchi and expiratory Wheezes ...Clubbing: No Gastrointestinal: Yes: Normal Bowel Sounds, Soft. No: Tenderness Edema: No Neurological: Yes: Alert, Oriented Labs: Laboratory Results - last 24 hr 11/08/19 11/08/19 11/08/19 12:30 12:30 14:00 WBC 17.9 H RBC 3.99 Hgb 11.3 Hct 35.3 MCV 88.6 MCH 28.4 MCHC 32.1 RDW 19.1 H Plt Count 323 MPV 7.8 Anticoagulation Therapy Puncture Site ABG pH ABG pCO2 at Pt Temp ABG pO2 at Pt Temp ABG HCO3 ABG O2 Sat (Measured) ABG O2 Content ABG Base Excess Michael Test O2 Delivery Device Oxygen Flow Rate Vent Mode Vent Rate Mechanical Rate Pressure Support Vent Sodium 138 Potassium 4.1 Chloride 97 L Carbon Dioxide 37 H Anion Gap 4 L BUN 28.8 H Creatinine 0.8 Est GFR (CKD-EPI)AfAm 84.77 Est GFR (CKD-EPI)NonAf 73.14 Random Glucose 119 H Calcium 9.3 Phosphorus Magnesium Total Bilirubin AST ALT Alkaline Phosphatase Total Protein Albumin Influenza A (Rapid) Negative Influenza B (Rapid) Negative 11/08/19 11/08/19 11/09/19 14:08 18:55 05:45 WBC 15.8 H RBC 4.03 Hgb 11.5 Hct 35.3 MCV 87.6 MCH 28.4 MCHC 32.5 RDW 19.3 H Plt Count 313 MPV 7.7 Anticoagulation Therapy No Result Required. No Result Required. Puncture Site No Result Required. Right radial ABG pH 7.70 H* 7.42 ABG pCO2 at Pt Temp 27.4 L 62.8 H ABG pO2 at Pt Temp 183 H 67.5 L ABG HCO3 34.2 H 40.0 H ABG O2 Sat (Measured) 99.8 H 92.8 L ABG O2 Content 15.9 14.3 ABG Base Excess 12.9 H 13.3 H Michael Test No Result Required. Positive O2 Delivery Device No Result Required. Bipap Oxygen Flow Rate No Result Required. 40% Vent Mode No Result Required. No Result Required. Vent Rate No Result Required. 12 Mechanical Rate No Result Required. No Result Required. Pressure Support Vent No Result Required. No Result Required. Sodium Potassium Chloride Carbon Dioxide Anion Gap BUN Creatinine Est GFR (CKD-EPI)AfAm Est GFR (CKD-EPI)NonAf Random Glucose Calcium Phosphorus Magnesium Total Bilirubin AST ALT Alkaline Phosphatase Total Protein Albumin Influenza A (Rapid) Influenza B (Rapid) 11/09/19 06:00 WBC RBC Hgb Hct MCV MCH MCHC RDW Plt Count MPV Anticoagulation Therapy Puncture Site ABG pH ABG pCO2 at Pt Temp ABG pO2 at Pt Temp ABG HCO3 ABG O2 Sat (Measured) ABG O2 Content ABG Base Excess Michael Test O2 Delivery Device Oxygen Flow Rate Vent Mode Vent Rate Mechanical Rate Pressure Support Vent Sodium 140 Potassium 4.5 Chloride 99 Carbon Dioxide 40 H Anion Gap 2 L BUN 32.7 H Creatinine 0.8 Est GFR (CKD-EPI)AfAm 84.77 Est GFR (CKD-EPI)NonAf 73.14 Random Glucose 126 H Calcium 9.4 Phosphorus 3.8 Magnesium 2.7 H Total Bilirubin 1.0 AST 20 ALT 27 Alkaline Phosphatase 60 Total Protein 5.8 L Albumin 3.4 Influenza A (Rapid) Influenza B (Rapid) Problem List - Problems (1) Acute on chronic respiratory failure with hypoxia and hypercapnia Code(s): J96.21 - ACUTE AND CHRONIC RESPIRATORY FAILURE WITH HYPOXIA; J96.22 - ACUTE AND CHRONIC RESPIRATORY FAILURE WITH HYPERCAPNIA (2) COPD exacerbation Code(s): J44.1 - CHRONIC OBSTRUCTIVE PULMONARY DISEASE W (ACUTE) EXACERBATION Assessment/Plan Acute on Chronic Hypoxic and Hypercapneic Respiratory Failure Acute COPD Exacerbation Acute Bronchitis CAD AAA h/o Bladder Ca HTN Smoker - NIPPV support - IV medrol - inhaled bronchodilators standing and PRN - O2 to keep Spo2 >90% - antibiotics - DVT prophylaxis - smoking cessation - ICU monitoring for tenuous respiratory status Dr Morales
[2019-11-09] MEDS: CLOPIDOGREL BISULFATE 75 MG TABLET (FP) PO SCH (09:20)
[2019-11-09] MEDS: LOSARTAN POTASSIUM 50 MG TABLET (FP) PO SCH (09:20)
[2019-11-09] MEDS: amLODIPine BESYLATE 5 MG TABLET (FP) PO SCH (09:20)
[2019-11-09] MEDS: LACTOBACILLUS ACIDOPHILUS 1 TABLET PO SCH ×2 (09:20→21:23)
[2019-11-09] MEDS: PANTOPRAZOLE 20 MG TABLET PO SCH (09:20)
[2019-11-09] MEDS: ENOXAPARIN NA (PORCINE) 40 MG/0.4 ML DISP.SYRIN SQ SCH (09:21)
[2019-11-09] MEDS ORDERED: PT OWN MED DRAWER 7, Y5N ONE (09:22)
[2019-11-09] MEDS: MUPIROCIN 2% TOPICAL OINTMENT FOR DECOLONIZATION NS SCH ×2 (09:53→21:23)
[2019-11-09] MEDS ORDERED: ROFLUMILAST 500 MCG TABLET PO SCH ×2 (10:00)
[2019-11-09] MEDS: NYSTATIN 500,000 UNITS/5 ML SUSPENSION PO SCH ×2 (11:24→17:27)
[2019-11-09] MEDS ORDERED: AZITHROMYCIN IVPB 500 MG/250 ML BAG IVPB ONE (11:35)
--- NOTE | 2019-11-09 11:35 | PN ---
Progress Note, Physician Chief Complaint: AWAKE ALERT IN ICU FAMILY BEDSIDE BIPAP FOR RESPIRATORY SUPPORT - Current Medication List Current Medications: Active Medications Albuterol Sulfate (Ventolin 0.083% Nebulizer Soln -) 1 amp NEB Q3H PRN PRN Reason: SHORTNESS OF BREATH Albuterol/Ipratropium (Duoneb -) 1 amp NEB RQID [facility] Last Admin: 11/09/19 08:15 Dose: 1 amp Alprazolam (Xanax -) 0.25 mg PO Q12H PRN PRN Reason: ANXIETY Amlodipine Besylate (Norvasc -) 5 mg PO DAILY [facility] Last Admin: 11/09/19 09:20 Dose: 5 mg Atorvastatin Calcium (Lipitor -) 80 mg PO HS [facility] Last Admin: 11/08/19 22:27 Dose: 80 mg Chlorhexidine Gluconate (Hibiclens For Decolonization -) 1 applic TP HS [facility] Last Admin: 11/08/19 22:28 Dose: 1 applic Clopidogrel Bisulfate (Plavix -) 75 mg PO DAILY [facility] Last Admin: 11/09/19 09:20 Dose: 75 mg Enoxaparin Sodium (Lovenox -) 40 mg SQ DAILY [facility] Last Admin: 11/09/19 09:21 Dose: 40 mg Lactobacillus Acidophilus (Bacid -) 1 tab PO BID [facility] Last Admin: 11/09/19 09:20 Dose: 1 tab Losartan Potassium (Cozaar -) 100 mg PO DAILY [facility] Last Admin: 11/09/19 09:20 Dose: 100 mg Methylprednisolone Sodium Succinate (Solu-Medrol -) 80 mg IVPUSH Q8H-IV [facility] Last Admin: 11/09/19 09:20 Dose: 80 mg Mupirocin (Bactroban Ointment (For Decolonization) -) 1 applic NS BID [facility] Stop: 11/13/19 21:59 Last Admin: 11/09/19 09:53 Dose: 1 applic Nystatin (Nystatin Oral Suspension -) 500,000 units PO Q6HPO [facility] Last Admin: 11/09/19 11:24 Dose: 500,000 units Pantoprazole Sodium (Protonix -) 20 mg PO DAILY [facility] Last Admin: 11/09/19 09:20 Dose: 20 mg Roflumilast (Daliresp) 500 mcg PO DAILY [facility] - Objective Vital Signs: Vital Signs Temperature 98.2 F 11/09/19 02:00 Pulse Rate 79 11/09/19 10:00 Respiratory Rate 27 H 11/09/19 10:00 Blood Pressure 169/70 11/09/19 10:00 O2 Sat by Pulse Oximetry (%) 94 L 11/09/19 10:00 Constitutional: Yes: Moderate Distress Cardiovascular: Yes: Pulse Irregular Respiratory: Yes: Diminished, On BiPap Gastrointestinal: Yes: Soft Genitourinary: Yes: Incontinence Musculoskeletal: Yes: Muscle Weakness Edema: No Neurological: Yes: WNL Labs: CBC, BMP 11/09/19 05:45 11/09/19 06:00 Assessment/Plan ACUTE ON CHRONIC COPD EXACERBATION ACUTE BRONCHITIS ON BIPAP STEROIDS IV 02 SUPPORT PULM EVAL FLU SWAB NEGATIVE SMOKING CESSATION AGAIN DISCUSSED WITH [facility] STILL SMOKING ABOUT 1 PACK PER DAY ON HOME 02!!
--- NOTE | 2019-11-09 11:35 | PN ---
Progress Note (short form) - Note Progress Note: s: sob stable, on bipap. no chest pain, palps, dizziness Current Medications Albuterol Sulfate (Ventolin 0.083% Nebulizer Soln -) 1 amp NEB Q3H PRN PRN Reason: SHORTNESS OF BREATH Albuterol/Ipratropium (Duoneb -) 1 amp NEB RQID [facility] Last Admin: 11/09/19 08:15 Dose: 1 amp Alprazolam (Xanax -) 0.25 mg PO Q12H PRN PRN Reason: ANXIETY Amlodipine Besylate (Norvasc -) 5 mg PO DAILY [facility] Last Admin: 11/09/19 09:20 Dose: 5 mg Atorvastatin Calcium (Lipitor -) 80 mg PO HS [facility] Last Admin: 11/08/19 22:27 Dose: 80 mg Chlorhexidine Gluconate (Hibiclens For Decolonization -) 1 applic TP HS [facility] Last Admin: 11/08/19 22:28 Dose: 1 applic Clopidogrel Bisulfate (Plavix -) 75 mg PO DAILY [facility] Last Admin: 11/09/19 09:20 Dose: 75 mg Enoxaparin Sodium (Lovenox -) 40 mg SQ DAILY [facility] Last Admin: 11/09/19 09:21 Dose: 40 mg Lactobacillus Acidophilus (Bacid -) 1 tab PO BID [facility] Last Admin: 11/09/19 09:20 Dose: 1 tab Losartan Potassium (Cozaar -) 100 mg PO DAILY [facility] Last Admin: 11/09/19 09:20 Dose: 100 mg Methylprednisolone Sodium Succinate (Solu-Medrol -) 80 mg IVPUSH Q8H-IV [facility] Last Admin: 11/09/19 09:20 Dose: 80 mg Mupirocin (Bactroban Ointment (For Decolonization) -) 1 applic NS BID [facility] Stop: 11/13/19 21:59 Last Admin: 11/09/19 09:53 Dose: 1 applic Nystatin (Nystatin Oral Suspension -) 500,000 units PO Q6HPO [facility] Last Admin: 11/09/19 11:24 Dose: 500,000 units Pantoprazole Sodium (Protonix -) 20 mg PO DAILY [facility] Last Admin: 11/09/19 09:20 Dose: 20 mg Roflumilast (Daliresp) 500 mcg PO DAILY [facility] Vital Signs Period Temp Pulse Resp BP Sys/Lock Pulse Ox Last 24 Hr 98 F-98.4 F 59-82 21-27 119-169/55-78 92-96 Constitutional: Yes: No Distress, Calm Eyes: Yes: Conjunctiva Clear Respiratory: Yes: Other (+rhonchi,diffuse exp wheezes) Gastrointestinal: Yes: Soft JVD: No Heart Sounds: Yes: S1, S2 (rrr) Edema: No (warm) Neurological: Yes: Alert, oriented x 3 no jaundice, diaphoresis not agitated Imaging - Results Chest X-ray: Image Reviewed (Hyperinflated. No infiltrates or effusions) EKG: Image Reviewed (NSR, old IWMI pattern, poor R wave progression- no change from prior) Assessment/Plan DATA: Echo 04/2019- Normal LVEF. E:A reversal c/w early diastolic dysfx, RV not well seen. IMP/PLAN: 1. Acute respiratory failure: secondary to acute on chronic advanced COPD -NIPPV as per critical care -Steroid taper -PPI 2. Chronic CAD, remote pci, w/o angina: -mult prior stents (prox and mid LAD, entire RCA and RPDA) all patent on cath 2013 -no angina (chronic sob with chest pressure is copd sx--present prior to cath and unchanged since) -no signs acs -cont plavix, statin, arb 3. Chronic diast chf: -borderline depressed LVEF (45% on v-gram, 50% echo 2015) with moderately incr' d LVEDP at cath (24) -never clinical chf, no sob response to trial of lasix in past -BNP has always been elevated and near 1000 range. -appears euvolemic, CXR no congestion -no diuretics at this point 3. HTN: -known bp lability from anxiety at times -stable, cont home meds 4.HPL: -cont home statin 5. +cigs: -previously counselled on cessation many times, not interested in quitting 6. Descending thoracic aortic aneurysm: -3.[address] chest 04/2019 -cont bp control - outpatient follow up for monitoring
--- NOTE | 2019-11-09 16:02 | PN ---
Physical Exam: SUBJECTIVE: Patient seen and examined in the morning. No acute events overnight. Have minimized settings for BiPAP. Denies chest pain, shortness of breath, abdominal pain nausea, vomiting, diarrhea. OBJECTIVE: Vital Signs Period Temp Pulse Resp BP Sys/Lock Pulse Ox Last 24 Hr 98 F-98.2 F 59-79 20-27 133-169/55-78 92-96 GENERAL: The patient is awake, alert, and fully oriented, in no acute distress. HEAD: Normal with no signs of trauma. EYES: EOMI ENT: Nasal cannula in place (4LPM) NECK: Trachea midline, full range of motion, supple. LUNGS: Poor airway movement, no wheezes or crackles appreciated. HEART: S1 S2 present, no murmurs rubs or gallops appreciated. ABDOMEN: Soft, nontender, normoactive bowel sounds. EXTREMITIES: 2+ pulses, warm, well-perfused, no edema. NEUROLOGICAL: Cranial nerves II through XII grossly intact. Normal speech, gait not observed. PSYCH: Normal mood, normal affect. SKIN: Warm, dry, normal turgor, no rashes or lesions noted Laboratory Results - last 24 hr 11/08/19 11/09/19 11/09/19 18:55 05:45 06:00 WBC 15.8 H RBC 4.03 Hgb 11.5 Hct 35.3 MCV 87.6 MCH 28.4 MCHC 32.5 RDW 19.3 H Plt Count 313 MPV 7.7 Anticoagulation Therapy No Result Required. Puncture Site Right radial ABG pH 7.42 ABG pCO2 at Pt Temp 62.8 H ABG pO2 at Pt Temp 67.5 L ABG HCO3 40.0 H ABG O2 Sat (Measured) 92.8 L ABG O2 Content 14.3 ABG Base Excess 13.3 H Michael Test Positive O2 Delivery Device Bipap Oxygen Flow Rate 40% Vent Mode No Result Required. Vent Rate 12 Mechanical Rate No Result Required. Pressure Support Vent No Result Required. Sodium 140 Potassium 4.5 Chloride 99 Carbon Dioxide 40 H Anion Gap 2 L BUN 32.7 H Creatinine 0.8 Est GFR (CKD-EPI)AfAm 84.77 Est GFR (CKD-EPI)NonAf 73.14 Random Glucose 126 H Calcium 9.4 Phosphorus 3.8 Magnesium 2.7 H Total Bilirubin 1.0 AST 20 ALT 27 Alkaline Phosphatase 60 Total Protein 5.8 L Albumin 3.4 Active Medications Generic Name Dose Route Start Last Admin Trade Name Freq PRN Reason Stop Dose Admin Albuterol Sulfate 1 amp 11/08/19 15:11 Ventolin 0.083% Nebulizer Soln - NEB Q3H PRN SHORTNESS OF BREATH Albuterol/Ipratropium 1 amp 11/08/19 16:00 11/09/19 12:00 Duoneb - NEB 1 amp RQID [facility] Administration Alprazolam 0.25 mg 11/08/19 15:18 Xanax - PO Q12H PRN ANXIETY Amlodipine Besylate 5 mg 11/09/19 10:00 11/09/19 09:20 Norvasc - PO 5 mg DAILY [facility] Administration Atorvastatin Calcium 80 mg 11/08/19 22:00 11/08/19 22:27 Lipitor - PO 80 mg HS [facility] Administration Chlorhexidine Gluconate 1 applic 11/08/19 22:00 11/08/19 22:28 Hibiclens For Decolonization - TP 1 applic HS [facility] Administration Clopidogrel Bisulfate 75 mg 11/09/19 10:00 11/09/19 09:20 Plavix - PO 75 mg DAILY [facility] Administration Enoxaparin Sodium 40 mg 11/09/19 10:00 11/09/19 09:21 Lovenox - SQ 40 mg DAILY [facility] Administration Azithromycin 250 mg/ Dextrose 250 mls @ 250 mls/hr 11/10/19 10:00 IVPB DAILY [facility] Lactobacillus Acidophilus 1 tab 11/08/19 22:00 11/09/19 09:20 Bacid - PO 1 tab BID [facility] Administration Losartan Potassium 100 mg 11/09/19 10:00 11/09/19 09:20 Cozaar - PO 100 mg DAILY [facility] Administration Methylprednisolone Sodium Succinate 80 mg 11/08/19 18:00 11/09/19 09:20 Solu-Medrol - IVPUSH 80 mg Q8H-IV [facility] Administration Mupirocin 1 applic 11/08/19 22:00 11/09/19 09:53 Bactroban Ointment (For Decolonization) - NS 11/13/19 21:59 1 applic BID [facility] Administration Nystatin 500,000 units 11/09/19 00:00 11/09/19 11:24 Nystatin Oral Suspension - PO 500,000 units Q6HPO [facility] Administration Pantoprazole Sodium 20 mg 11/09/19 10:00 11/09/19 09:20 Protonix - PO 20 mg DAILY [facility] Administration Roflumilast 500 mcg 11/09/19 10:00 Daliresp PO DAILY [facility] ASSESSMENT/PLAN: 74F PMH COPD (3-4L NC home), current smoker, HTN/HLD, bladder cancer, presented for SOB, transferred to acute respiratory failure on BiPAP. Neuro -AAOx3, mentating well. -Neurochecks CV -Hx of CAD, AAA, -Continue home meds: Amlodipine 5, Losartan 100, lipitor 80 Pulm -Hx of chronic tobacco use -Acute COPD Exacerbation -Bipap 05/15 RR 12 Fio2 40%. Will try to place on NC 4L today. -CXR shows no infiltrate. -Duonebs QID, Albuterol neb PRN -Solumedrol 80 mg Q8H IV -Smoking cessation counseling GI -No acute issues, continuing to monitor -Protonix 20 mg Daily Renal -No acute issues, continue to monitor urine output and electrolytes. ID -Sputum cx prelim negative DVT: Lovenox F: oral hydration E: monitor CMP N: Sodium controlled diet. Dispo: Continue ICU monitoring Visit type - Emergency Visit Emergency Visit: Yes ED Registration Date: 11/07/19 Care time: The patient presented to the Emergency Department on the above date and was hospitalized for further evaluation of their emergent condition. - New Patient This patient is new to me today: No - Critical Care Critical Care patient: Yes Total Critical Care Time (in minutes): 45 Critical Care Statement: The care of this patient involved high complexity decision making to prevent further life threatening deterioration of the patient 's condition and/or to evaluate & treat vital organ system(s) failure or risk of failure. ATTENDING PHYSICIAN STATEMENT I saw and evaluated the patient. I reviewed the resident's note and discussed the case with the resident. I agree with the resident's findings and plan as documented. SUBJECTIVE: OBJECTIVE: ASSESSMENT AND PLAN:
[2019-11-09] MEDS: CHLORHEXIDINE GLUCONATE 4% CLEANSER FOR DECOLONIZATION TP SCH (21:23)
[2019-11-09] MEDS: ATORVASTATIN CA 80 MG TABLET (FP) PO SCH (21:23)
[2019-11-10] MEDS: NYSTATIN 500,000 UNITS/5 ML SUSPENSION PO SCH ×4 (00:54→19:19)
[2019-11-10] MEDS: methylPREDNISolone NA SUCC 40 MG/1 ML VIAL IVPUSH SCH ×3 (01:11→19:19)
[2019-11-10 06:52] LABS: HEMATOCRIT 35.7 % (32.4-45.2); HEMOGLOBIN 11.7 GM/dL (10.7-15.3); MEAN CELL VOLUME 87.6 fl (80-96); RBC 4.07 M/mm3 (3.60-5.2); WHITE BLOOD COUNT 13.7 K/mm3 (4.0-10.0)
[2019-11-10 06:53] LABS: BASO % 0.1 % (0-2.0); LYMPH % 2.6 % (8-40); MCH 28.8 pg (25.7-33.7); MCHC 32.9 g/dl (32.0-36.0); MEAN PLT VOLUME 7.9 fl (7.5-11.1); MONO % 1.5 % (3.8-10.2); NEUT % 95.8 % (42.8-82.8); PLATELET COUNT 293 K/MM3 (134-434); RDW 19.6 % (11.6-15.6)
[2019-11-10 07:04] LABS: ALBUMIN 3.4 g/dl (3.4-5.0); BILIRUBIN,TOTAL 0.6 mg/dL (0.2-1); BLOOD UREA NITROGEN 34.8 mg/dL (7-18); CALCIUM 9.3 mg/dL (8.5-10.1); CREATININE 0.8 mg/dL (0.55-1.3); MAGNESIUM 2.3 mg/dL (1.8-2.4); POTASSIUM 4.4 mmol/L (3.5-5.1); TOT PROT 5.7 g/dl (6.4-8.2)
[2019-11-10] MEDS: ALBUTEROL SO4 2.5/IPRATROPIUM 0.5 INH SOL 3 ML VIAL.NEB. NEB SCH ×4 (09:05→20:45)
--- NOTE | 2019-11-10 09:49 | PN ---
Progress Note, Physician Chief Complaint: AWAKE ALERT FEELING BETTER ON 02 MASK - Current Medication List Current Medications: Active Medications Albuterol Sulfate (Ventolin 0.083% Nebulizer Soln -) 1 amp NEB Q3H PRN PRN Reason: SHORTNESS OF BREATH Albuterol/Ipratropium (Duoneb -) 1 amp NEB RQID [facility] Last Admin: 11/09/19 20:30 Dose: 1 amp Alprazolam (Xanax -) 0.25 mg PO Q12H PRN PRN Reason: ANXIETY Amlodipine Besylate (Norvasc -) 5 mg PO DAILY [facility] Last Admin: 11/09/19 09:20 Dose: 5 mg Atorvastatin Calcium (Lipitor -) 80 mg PO HS [facility] Last Admin: 11/09/19 21:23 Dose: 80 mg Chlorhexidine Gluconate (Hibiclens For Decolonization -) 1 applic TP HS [facility] Last Admin: 11/09/19 21:23 Dose: 1 applic Clopidogrel Bisulfate (Plavix -) 75 mg PO DAILY [facility] Last Admin: 11/09/19 09:20 Dose: 75 mg Enoxaparin Sodium (Lovenox -) 40 mg SQ DAILY [facility] Last Admin: 11/09/19 09:21 Dose: 40 mg Azithromycin 250 mg/ Dextrose 250 mls @ 250 mls/hr IVPB DAILY [facility] Lactobacillus Acidophilus (Bacid -) 1 tab PO BID [facility] Last Admin: 11/09/19 21:23 Dose: 1 tab Losartan Potassium (Cozaar -) 100 mg PO DAILY [facility] Last Admin: 11/09/19 09:20 Dose: 100 mg Methylprednisolone Sodium Succinate (Solu-Medrol -) 80 mg IVPUSH Q8H-IV [facility] Last Admin: 11/10/19 01:11 Dose: 80 mg Mupirocin (Bactroban Ointment (For Decolonization) -) 1 applic NS BID [facility] Stop: 11/13/19 21:59 Last Admin: 11/09/19 21:23 Dose: 1 applic Nystatin (Nystatin Oral Suspension -) 500,000 units PO Q6HPO [facility] Last Admin: 11/10/19 05:11 Dose: 500,000 units Pantoprazole Sodium (Protonix -) 20 mg PO DAILY [facility] Last Admin: 11/09/19 09:20 Dose: 20 mg Roflumilast (Daliresp) 500 mcg PO DAILY [facility] - Objective Vital Signs: Vital Signs Temperature 98.2 F 11/10/19 08:00 Pulse Rate 83 11/10/19 08:00 Respiratory Rate 26 H 11/10/19 08:40 Blood Pressure 157/78 11/10/19 08:00 O2 Sat by Pulse Oximetry (%) 97 11/10/19 08:40 Constitutional: Yes: Moderate Distress Cardiovascular: Yes: Pulse Irregular Respiratory: Yes: Diminished, On Venti-Mask Gastrointestinal: Yes: Soft Genitourinary: Yes: WNL Musculoskeletal: Yes: Muscle Weakness Edema: No Integumentary: Yes: Rash, Venous Stasis Changes Wound/Incision: Yes: Other Neurological: Yes: Other Psychiatric: Yes: WNL Labs: CBC, BMP 11/10/19 05:18 11/10/19 05:18 Problem List - Problems (1) COPD exacerbation Code(s): J44.1 - CHRONIC OBSTRUCTIVE PULMONARY DISEASE W (ACUTE) EXACERBATION (2) ASHD (arteriosclerotic heart disease) Code(s): I25.10 - ATHSCL HEART DISEASE OF [place] CORONARY ARTERY W/O ANG PCTRS (3) Acute on chronic respiratory failure with hypercapnia Code(s): J96.22 - ACUTE AND CHRONIC RESPIRATORY FAILURE WITH HYPERCAPNIA (4) Anxiety Code(s): F41.9 - ANXIETY DISORDER, UNSPECIFIED (5) Bladder cancer Code(s): C67.9 - MALIGNANT NEOPLASM OF BLADDER, UNSPECIFIED (6) Dyspnea Code(s): R06.00 - DYSPNEA, UNSPECIFIED (7) Thoracic aortic aneurysm Code(s): I71.2 - THORACIC AORTIC ANEURYSM, WITHOUT RUPTURE (8) Tobacco abuse Code(s): Z72.0 - TOBACCO USE Assessment/Plan ACUTE ON CHRONIC COPD EXACERBATION ACUTE BRONCHITIS ON AZITHROMYCIN TRANSFER MED/SURG THEN [facility] FOR PULM REH[facility] ON BIPAP NECESSARY STEROIDS IV TAPER OFF 02 SUPPORT PULM EVAL FLU SWAB NEGATIVE SMOKING CESSATION AGAIN DISCUSSED WITH [facility] STILL SMOKING ABOUT 1 PACK PER DAY ON HOME 02!!
[2019-11-10] MEDS ORDERED: PT OWN MED DRAWER 7, Y5N ONE (10:24)
[2019-11-10] MEDS: CLOPIDOGREL BISULFATE 75 MG TABLET (FP) PO SCH (10:42)
[2019-11-10] MEDS: ENOXAPARIN NA (PORCINE) 40 MG/0.4 ML DISP.SYRIN SQ SCH (10:42)
[2019-11-10] MEDS: amLODIPine BESYLATE 5 MG TABLET (FP) PO SCH (10:42)
[2019-11-10] MEDS: LACTOBACILLUS ACIDOPHILUS 1 TABLET PO SCH ×2 (10:42→21:28)
[2019-11-10] MEDS: LOSARTAN POTASSIUM 50 MG TABLET (FP) PO SCH (10:42)
[2019-11-10] MEDS: MUPIROCIN 2% TOPICAL OINTMENT FOR DECOLONIZATION NS SCH ×2 (10:42→21:28)
[2019-11-10] MEDS: PANTOPRAZOLE 20 MG TABLET PO SCH (10:42)
[2019-11-10] MEDS: AZITHROMYCIN IVPB 250 MG in DEXTROSE 5%-WATER - 250 ML IVPB SCH (10:45)
--- NOTE | 2019-11-10 11:15 | PN ---
Progress Note (short form) - Note Progress Note: s: sob stable, no chest pain, palps, dizziness Current Medications Generic Name Dose Route Start Last Admin Trade Name Freq PRN Reason Stop Dose Admin Albuterol Sulfate 1 amp 11/08/19 15:11 Ventolin 0.083% Nebulizer Soln - NEB Q3H PRN SHORTNESS OF BREATH Albuterol/Ipratropium 1 amp 11/08/19 16:00 11/10/19 09:05 Duoneb - NEB 1 amp RQID [facility] Administration Alprazolam 0.25 mg 11/08/19 15:18 Xanax - PO Q12H PRN ANXIETY Amlodipine Besylate 5 mg 11/09/19 10:00 11/10/19 10:42 Norvasc - PO 5 mg DAILY [facility] Administration Atorvastatin Calcium 80 mg 11/08/19 22:00 11/09/19 21:23 Lipitor - PO 80 mg HS [facility] Administration Chlorhexidine Gluconate 1 applic 11/08/19 22:00 11/09/19 21:23 Hibiclens For Decolonization - TP 1 applic HS [facility] Administration Clopidogrel Bisulfate 75 mg 11/09/19 10:00 11/10/19 10:42 Plavix - PO 75 mg DAILY [facility] Administration Enoxaparin Sodium 40 mg 11/09/19 10:00 11/10/19 10:42 Lovenox - SQ 40 mg DAILY [facility] Administration Azithromycin 250 mg/ Dextrose 250 mls @ 250 mls/hr 11/10/19 10:00 IVPB DAILY [facility] Lactobacillus Acidophilus 1 tab 11/08/19 22:00 11/10/19 10:42 Bacid - PO 1 tab BID [facility] Administration Losartan Potassium 100 mg 11/09/19 10:00 11/10/19 10:42 Cozaar - PO 100 mg DAILY [facility] Administration Methylprednisolone Sodium Succinate 80 mg 11/08/19 18:00 11/10/19 10:42 Solu-Medrol - IVPUSH 80 mg Q8H-IV [facility] Administration Mupirocin 1 applic 11/08/19 22:00 11/10/19 10:42 Bactroban Ointment (For Decolonization) - NS 11/13/19 21:59 1 applic BID [facility] Administration Nystatin 500,000 units 11/09/19 00:00 11/10/19 05:11 Nystatin Oral Suspension - PO 500,000 units Q6HPO [facility] Administration Pantoprazole Sodium 20 mg 11/09/19 10:00 11/10/19 10:42 Protonix - PO 20 mg DAILY [facility] Administration Roflumilast 500 mcg 11/09/19 10:00 Daliresp PO DAILY [facility] Vital Signs Period Temp Pulse Resp BP Sys/Lock Pulse Ox Last 24 Hr 98.0 F-98.2 F 63-83 20-27 132-162/48-86 93-97 Constitutional: Yes: No Distress, Calm Eyes: Yes: Conjunctiva Clear Respiratory: Yes: Other (+rhonchi,diffuse exp wheezes) Gastrointestinal: Yes: Soft JVD: No Heart Sounds: Yes: S1, S2 (rrr) Edema: No (warm) Neurological: Yes: Alert, oriented x 3 no jaundice, diaphoresis not agitated CBC, BMP 11/10/19 05:18 11/10/19 05:18 Imaging - Results Chest X-ray: Image Reviewed (Hyperinflated. No infiltrates or effusions) EKG: Image Reviewed (NSR, old IWMI pattern, poor R wave progression- no change from prior) Assessment/Plan DATA: Echo 04/2019- Normal LVEF. E:A reversal c/w early diastolic dysfx, RV not well seen. tele: sr IMP/PLAN: 1. Acute respiratory failure: secondary to acute on chronic advanced COPD -NIPPV as per critical care -Steroids per pulm -PPI 2. Chronic CAD, remote pci, w/o angina: -mult prior stents (prox and mid LAD, entire RCA and RPDA) all patent on cath 2013 -no angina (chronic sob with chest pressure is copd sx--present prior to cath and unchanged since) -no signs acs -cont plavix, statin, arb 3. Chronic diast chf: -borderline depressed LVEF (45% on v-gram, 50% echo 2015) with moderately incr' d LVEDP at cath (24) -never clinical chf, no sob response to trial of lasix in past -BNP has always been elevated and near 1000 range. -appears euvolemic, CXR no congestion -no diuretics at this point 3. HTN: -known bp lability from anxiety at times -stable, cont home meds 4.HPL: -cont home statin 5. +cigs: -previously counselled on cessation many times, not interested in quitting 6. Descending thoracic aortic aneurysm: -3.[address] chest 04/2019 -cont bp control - outpatient follow up for monitoring
[2019-11-10 11:21] LABS: ANISOCYTOSIS 2+; MACROCYTOSIS 0; OVALOCYTE 1+; PLATELET ESTIMATE NORMAL
--- NOTE | 2019-11-10 12:21 | PN ---
Teaching Attending Note Name of Resident: Jannie Aguilar ATTENDING PHYSICIAN STATEMENT I saw and evaluated the patient. I reviewed the resident's note and discussed the case with the resident. I agree with the resident's findings and plan as documented. SUBJECTIVE: Patient seen and examined in the ICU. Awake and alert on VM O2. Used NIPPV support overnight. SOB is a little better. Intake & Output 11/07/19 11/08/19 11/09/19 11/10/19 23:59 23:59 23:59 23:59 Intake Total 100 350 150 Balance 100 350 150 Weight 90 lb 89 lb 5 oz 95 lb 93 lb 7.616 oz Last Vital Signs Temp Pulse Resp BP Pulse Ox 98.4 F 75 24 H 159/73 99 11/10/19 12:00 11/10/19 12:00 11/10/19 12:00 11/10/19 12:00 11/10/19 10:00 Active Medications Albuterol Sulfate (Ventolin 0.083% Nebulizer Soln -) 1 amp NEB Q3H PRN PRN Reason: SHORTNESS OF BREATH Albuterol/Ipratropium (Duoneb -) 1 amp NEB RQID [facility] Last Admin: 11/10/19 09:05 Dose: 1 amp Alprazolam (Xanax -) 0.25 mg PO Q12H PRN PRN Reason: ANXIETY Amlodipine Besylate (Norvasc -) 5 mg PO DAILY [facility] Last Admin: 11/10/19 10:42 Dose: 5 mg Atorvastatin Calcium (Lipitor -) 80 mg PO [facility] Last Admin: 11/09/19 21:23 Dose: 80 mg Chlorhexidine Gluconate (Hibiclens For Decolonization -) 1 applic TP [facility] Last Admin: 11/09/19 21:23 Dose: 1 applic Clopidogrel Bisulfate (Plavix -) 75 mg PO DAILY [facility] Last Admin: 11/10/19 10:42 Dose: 75 mg Enoxaparin Sodium (Lovenox -) 40 mg SQ DAILY [facility] Last Admin: 11/10/19 10:42 Dose: 40 mg Azithromycin 250 mg/ Dextrose 250 mls @ 250 mls/hr IVPB DAILY [facility] Last Admin: 11/10/19 10:45 Dose: 250 mls/hr Lactobacillus Acidophilus (Bacid -) 1 tab PO BID [facility] Last Admin: 11/10/19 10:42 Dose: 1 tab Losartan Potassium (Cozaar -) 100 mg PO DAILY [facility] Last Admin: 11/10/19 10:42 Dose: 100 mg Methylprednisolone Sodium Succinate (Solu-Medrol -) 80 mg IVPUSH Q8H-IV [facility] Last Admin: 11/10/19 10:42 Dose: 80 mg Mupirocin (Bactroban Ointment (For Decolonization) -) 1 applic NS BID [facility] Stop: 11/13/19 21:59 Last Admin: 11/10/19 10:42 Dose: 1 applic Nystatin (Nystatin Oral Suspension -) 500,000 units PO Q6HPO [facility] Last Admin: 11/10/19 05:11 Dose: 500,000 units Pantoprazole Sodium (Protonix -) 20 mg PO DAILY [facility] Last Admin: 11/10/19 10:42 Dose: 20 mg Roflumilast (Daliresp) 500 mcg PO DAILY [facility] Constitutional: Yes: Mildly tachypneic on VM O2 Eyes: Yes: Conjunctiva Clear, EOM Intact HENT: Yes: Atraumatic, Normocephalic Neck: Yes: Supple, Trachea Midline Cardiovascular: Yes: Regular Rate and Rhythm Respiratory: Yes: Bilateral Rhonchi and expiratory Wheezes ...Clubbing: No Gastrointestinal: Yes: Normal Bowel Sounds, Soft. No: Tenderness Edema: No Neurological: Yes: Alert, Oriented Labs: Laboratory Results - last 24 hr 11/10/19 11/10/19 05:18 05:18 WBC 13.7 H RBC 4.07 Hgb 11.7 Hct 35.7 MCV 87.6 MCH 28.8 MCHC 32.9 RDW 19.6 H Plt Count 293 MPV 7.9 Absolute Neuts (auto) 13.1 H Neutrophils % 95.8 H Neutrophils % (Manual) 93.0 H Band Neutrophils % 3.0 Lymphocytes % 2.6 L D Lymphocytes % (Manual) 3.0 L D Monocytes % 1.5 L D Monocytes % (Manual) 1 L D Eosinophils % 0.0 Eosinophils % (Manual) 0.0 Basophils % 0.1 Basophils % (Manual) 0.0 Myelocytes % (Man) 0 Promyelocytes % (Man) 0 Blast Cells % (Manual) 0 Nucleated RBC % 0 Metamyelocytes 0 Hypochromia 0 Platelet Estimate Normal Polychromasia 1+ Poikilocytosis 1+ Anisocytosis 2+ Microcytosis 1+ Macrocytosis 0 Spherocytes 1+ Ovalocytes 1+ Schistocytes 1+ Sodium 142 Potassium 4.4 Chloride 99 Carbon Dioxide 39 H Anion Gap 4 L BUN 34.8 H Creatinine 0.8 Est GFR (CKD-EPI)AfAm 84.77 Est GFR (CKD-EPI)NonAf 73.14 Random Glucose 144 H Calcium 9.3 Phosphorus 4.0 Magnesium 2.3 Total Bilirubin 0.6 AST 20 ALT 29 Alkaline Phosphatase 60 Total Protein 5.7 L Albumin 3.4 Problem List - Problems (1) Acute on chronic respiratory failure with hypoxia and hypercapnia Code(s): J96.21 - ACUTE AND CHRONIC RESPIRATORY FAILURE WITH HYPOXIA; J96.22 - ACUTE AND CHRONIC RESPIRATORY FAILURE WITH HYPERCAPNIA (2) COPD exacerbation Code(s): J44.1 - CHRONIC OBSTRUCTIVE PULMONARY DISEASE W (ACUTE) EXACERBATION Assessment/Plan Acute on Chronic Hypoxic and Hypercapneic Respiratory Failure Acute COPD Exacerbation Acute Bronchitis CAD AAA h/o Bladder Ca HTN Smoker - NC O2 as tolerated - NIPPV support as needed - IV medrol - inhaled bronchodilators standing and PRN - O2 to keep Spo2 >90% - antibiotics - DVT prophylaxis - smoking cessation - 4W / 4S monitoring for continuous oximetry Dr Morales
--- NOTE | 2019-11-10 13:42 | PN ---
Physical Exam: SUBJECTIVE: Patient seen and examined. Pt continues to experience exertional dyspnea. Mid day, pt was in tripod due to inability to breathe. Placed back on BIPAP. OBJECTIVE: Vital Signs Period Temp Pulse Resp BP Sys/Lock Pulse Ox Last 24 Hr 98.0 F-98.4 F 63-83 20-27 132-162/48-86 93-99 GENERAL: The patient is awake, alert, and fully oriented, in mild distress. HEAD: Normal with no signs of trauma. EYES: EOMI ENT:back on BIPAP NECK: Trachea midline, full range of motion, supple. LUNGS: Poor airway movement, diffuse wheezes and ronchi. HEART: S1 S2 present, no murmurs rubs or gallops appreciated. ABDOMEN: Soft, nontender, normoactive bowel sounds. EXTREMITIES: 2+ pulses, warm, well-perfused, no edema. PSYCH: Normal mood, normal affect. SKIN: Warm, dry, normal turgor, no rashes or lesions noted Laboratory Results - last 24 hr 11/10/19 11/10/19 05:18 05:18 WBC 13.7 H RBC 4.07 Hgb 11.7 Hct 35.7 MCV 87.6 MCH 28.8 MCHC 32.9 RDW 19.6 H Plt Count 293 MPV 7.9 Absolute Neuts (auto) 13.1 H Neutrophils % 95.8 H Neutrophils % (Manual) 93.0 H Band Neutrophils % 3.0 Lymphocytes % 2.6 L D Lymphocytes % (Manual) 3.0 L D Monocytes % 1.5 L D Monocytes % (Manual) 1 L D Eosinophils % 0.0 Eosinophils % (Manual) 0.0 Basophils % 0.1 Basophils % (Manual) 0.0 Myelocytes % (Man) 0 Promyelocytes % (Man) 0 Blast Cells % (Manual) 0 Nucleated RBC % 0 Metamyelocytes 0 Hypochromia 0 Platelet Estimate Normal Polychromasia 1+ Poikilocytosis 1+ Anisocytosis 2+ Microcytosis 1+ Macrocytosis 0 Spherocytes 1+ Ovalocytes 1+ Schistocytes 1+ Sodium 142 Potassium 4.4 Chloride 99 Carbon Dioxide 39 H Anion Gap 4 L BUN 34.8 H Creatinine 0.8 Est GFR (CKD-EPI)AfAm 84.77 Est GFR (CKD-EPI)NonAf 73.14 Random Glucose 144 H Calcium 9.3 Phosphorus 4.0 Magnesium 2.3 Total Bilirubin 0.6 AST 20 ALT 29 Alkaline Phosphatase 60 Total Protein 5.7 L Albumin 3.4 Active Medications Generic Name Dose Route Start Last Admin Trade Name Freq PRN Reason Stop Dose Admin Albuterol Sulfate 1 amp 11/08/19 15:11 Ventolin 0.083% Nebulizer Soln - NEB Q3H PRN SHORTNESS OF BREATH Albuterol/Ipratropium 1 amp 11/08/19 16:00 11/10/19 09:05 Duoneb - NEB 1 amp RQID [facility] Administration Alprazolam 0.25 mg 11/08/19 15:18 Xanax - PO Q12H PRN ANXIETY Amlodipine Besylate 5 mg 11/09/19 10:00 11/10/19 10:42 Norvasc - PO 5 mg DAILY [facility] Administration Atorvastatin Calcium 80 mg 11/08/19 22:00 11/09/19 21:23 Lipitor - PO 80 mg HS [facility] Administration Chlorhexidine Gluconate 1 applic 11/08/19 22:00 11/09/19 21:23 Hibiclens For Decolonization - TP 1 applic HS [facility] Administration Clopidogrel Bisulfate 75 mg 11/09/19 10:00 11/10/19 10:42 Plavix - PO 75 mg DAILY [facility] Administration Enoxaparin Sodium 40 mg 11/09/19 10:00 11/10/19 10:42 Lovenox - SQ 40 mg DAILY [facility] Administration Azithromycin 250 mg/ Dextrose 250 mls @ 250 mls/hr 11/10/19 10:00 11/10/19 10 :45 IVPB 250 mls/hr DAILY [facility] Administration Lactobacillus Acidophilus 1 tab 11/08/19 22:00 11/10/19 10:42 Bacid - PO 1 tab BID [facility] Administration Losartan Potassium 100 mg 11/09/19 10:00 11/10/19 10:42 Cozaar - PO 100 mg DAILY [facility] Administration Methylprednisolone Sodium Succinate 80 mg 11/08/19 18:00 11/10/19 10:42 Solu-Medrol - IVPUSH 80 mg Q8H-IV [facility] Administration Mupirocin 1 applic 11/08/19 22:00 11/10/19 10:42 Bactroban Ointment (For Decolonization) - NS 11/13/19 21:59 1 applic BID [facility] Administration Nystatin 500,000 units 11/09/19 00:00 11/10/19 13:12 Nystatin Oral Suspension - PO Not Given Q6HPO [facility] Pantoprazole Sodium 20 mg 11/09/19 10:00 11/10/19 10:42 Protonix - PO 20 mg DAILY [facility] Administration Roflumilast 500 mcg 11/09/19 10:00 Daliresp PO DAILY [facility] ASSESSMENT/PLAN: 74F PMH COPD (3-4L [place] home), current smoker, HTN/HLD, bladder cancer, presented for SOB, transferred to acute respiratory failure on BiPAP. Neuro -AAOx3, mentating well. -Neurochecks CV -Hx of CAD, AAA, -Continue home meds: Amlodipine 5, Losartan 100, lipitor 80 Pulm -Hx of chronic tobacco use -Acute COPD Exacerbation -back on Bipap 05/15 RR 12 Fio2 40%. as pt began to desat and labored breathing during the day -Duonebs QID, Albuterol neb PRN -Solumedrol 80 mg Q8H IV -Smoking cessation counseling GI -No acute issues, continuing to monitor -Protonix 20 mg Daily Renal -No acute issues, continue to monitor urine output and electrolytes. ID -Sputum cx final negative DVT: Lovenox F: oral hydration E: monitor CMP N: Sodium controlled diet. Dispo: Continue ICU monitoring Visit type - Emergency Visit Emergency Visit: Yes ED Registration Date: 11/07/19 Care time: The patient presented to the Emergency Department on the above date and was hospitalized for further evaluation of their emergent condition. - New Patient This patient is new to me today: No - Critical Care Critical Care patient: Yes Total Critical Care Time (in minutes): 36 Critical Care Statement: The care of this patient involved high complexity decision making to prevent further life threatening deterioration of the patient 's condition and/or to evaluate & treat vital organ system(s) failure or risk of failure. ATTENDING PHYSICIAN STATEMENT I saw and evaluated the patient. I reviewed the resident's note and discussed the case with the resident. I agree with the resident's findings and plan as documented. SUBJECTIVE: OBJECTIVE: ASSESSMENT AND PLAN:
[2019-11-10] MEDS: ATORVASTATIN CA 80 MG TABLET (FP) PO SCH (21:29)
[2019-11-10] MEDS: CHLORHEXIDINE GLUCONATE 4% CLEANSER FOR DECOLONIZATION TP SCH (21:29)
[2019-11-11] MEDS: NYSTATIN 500,000 UNITS/5 ML SUSPENSION PO SCH ×4 (00:17→17:24)
[2019-11-11] MEDS: methylPREDNISolone NA SUCC 40 MG/1 ML VIAL IVPUSH SCH ×3 (02:09→17:24)
[2019-11-11 07:00] LABS: BASO % 0.1 % (0-2.0); HEMOGLOBIN 12.2 GM/dL (10.7-15.3); LYMPH % 5.9 % (8-40); MCH 28.6 pg (25.7-33.7); MEAN CELL VOLUME 86.7 fl (80-96); MEAN PLT VOLUME 7.9 fl (7.5-11.1); MONO % 4.1 % (3.8-10.2); NEUT % 89.9 % (42.8-82.8); PLATELET COUNT 313 K/MM3 (134-434); RBC 4.26 M/mm3 (3.60-5.2); RDW 19.1 % (11.6-15.6); WHITE BLOOD COUNT 11.4 K/mm3 (4.0-10.0)
[2019-11-11 07:28] LABS: ALBUMIN 3.5 g/dl (3.4-5.0); BILIRUBIN,TOTAL 0.7 mg/dL (0.2-1); BLOOD UREA NITROGEN 29.3 mg/dL (7-18); CALCIUM 9.3 mg/dL (8.5-10.1); CREATININE 0.8 mg/dL (0.55-1.3); MAGNESIUM 2.5 mg/dL (1.8-2.4); PHOSPHOROUS 4.6 mg/dL (2.5-4.9)
[2019-11-11] MEDS: ALBUTEROL SO4 2.5/IPRATROPIUM 0.5 INH SOL 3 ML VIAL.NEB. NEB SCH ×4 (07:35→20:50)
--- NOTE | 2019-11-11 09:59 | PN ---
Progress Note, Physician Chief Complaint: AWAKE SITTING UP IN CHAIR STILL ON 02 STEROID TAPER PT [facility] WOULD BENEFIT [facility] - Current Medication List Current Medications: Active Medications Albuterol Sulfate (Ventolin 0.083% Nebulizer Soln -) 1 amp NEB Q3H PRN PRN Reason: SHORTNESS OF BREATH Albuterol/Ipratropium (Duoneb -) 1 amp NEB RQID [facility] Last Admin: 11/11/19 07:35 Dose: 1 amp Alprazolam (Xanax -) 0.25 mg PO Q12H PRN PRN Reason: ANXIETY Amlodipine Besylate (Norvasc -) 5 mg PO DAILY [facility] Last Admin: 11/10/19 10:42 Dose: 5 mg Atorvastatin Calcium (Lipitor -) 80 mg PO HS [facility] Last Admin: 11/10/19 21:29 Dose: Not Given Chlorhexidine Gluconate (Hibiclens For Decolonization -) 1 applic TP [facility] Last Admin: 11/10/19 21:29 Dose: 1 applic Clopidogrel Bisulfate (Plavix -) 75 mg PO DAILY [facility] Last Admin: 11/10/19 10:42 Dose: 75 mg Enoxaparin Sodium (Lovenox -) 40 mg SQ DAILY [facility] Last Admin: 11/10/19 10:42 Dose: 40 mg Azithromycin 250 mg/ Dextrose 250 mls @ 250 mls/hr IVPB DAILY [facility] Last Admin: 11/10/19 10:45 Dose: 250 mls/hr Lactobacillus Acidophilus (Bacid -) 1 tab PO BID [facility] Last Admin: 11/10/19 21:28 Dose: Not Given Losartan Potassium (Cozaar -) 100 mg PO DAILY [facility] Last Admin: 11/10/19 10:42 Dose: 100 mg Methylprednisolone Sodium Succinate (Solu-Medrol -) 80 mg IVPUSH Q8H-IV [facility] Last Admin: 11/11/19 02:09 Dose: 80 mg Mupirocin (Bactroban Ointment (For Decolonization) -) 1 applic NS BID [facility] Stop: 11/13/19 21:59 Last Admin: 11/10/19 21:28 Dose: 1 applic Nystatin (Nystatin Oral Suspension -) 500,000 units PO Q6HPO [facility] Last Admin: 11/11/19 06:36 Dose: Not Given Pantoprazole Sodium (Protonix -) 20 mg PO DAILY [facility] Last Admin: 11/10/19 10:42 Dose: 20 mg Roflumilast (Daliresp) 500 mcg PO DAILY [facility] - Objective Vital Signs: Vital Signs Temperature 98.0 F 11/11/19 06:00 Pulse Rate 61 11/11/19 06:00 Respiratory Rate 20 11/11/19 06:00 Blood Pressure 158/75 11/11/19 06:00 O2 Sat by Pulse Oximetry (%) 96 11/11/19 08:34 Constitutional: Yes: Mild Distress Cardiovascular: Yes: Pulse Irregular Gastrointestinal: Yes: Soft Genitourinary: Yes: Incontinence Musculoskeletal: Yes: Muscle Weakness Edema: No Wound/Incision: Yes: Clean/Dry Neurological: Yes: Other Psychiatric: Yes: Other Labs: CBC, BMP 11/11/19 05:20 11/11/19 05:20 Problem List - Problems (1) COPD exacerbation Code(s): J44.1 - CHRONIC OBSTRUCTIVE PULMONARY DISEASE W (ACUTE) EXACERBATION (2) ASHD (arteriosclerotic heart disease) Code(s): I25.10 - ATHSCL HEART DISEASE OF [place] CORONARY ARTERY W/O ANG PCTRS (3) Acute on chronic respiratory failure with hypercapnia Code(s): J96.22 - ACUTE AND CHRONIC RESPIRATORY FAILURE WITH HYPERCAPNIA (4) Anxiety Code(s): F41.9 - ANXIETY DISORDER, UNSPECIFIED (5) Bladder cancer Code(s): C67.9 - MALIGNANT NEOPLASM OF BLADDER, UNSPECIFIED (6) Dyspnea Code(s): R06.00 - DYSPNEA, UNSPECIFIED (7) Thoracic aortic aneurysm Code(s): I71.2 - THORACIC AORTIC ANEURYSM, WITHOUT RUPTURE (8) Tobacco abuse Code(s): Z72.0 - TOBACCO USE Assessment/Plan ACUTE ON CHRONIC COPD EXACERBATION ACUTE BRONCHITIS ON AZITHROMYCIN TRANSFER MED/SURG THEN [facility] FOR [facility]M REH[facility] ON BIPAP NECESSARY STEROIDS IV TAPER OFF 02 SUPPORT PULM EVAL FLU SWAB NEGATIVE NICOTINE PATCH STARTED SMOKING CESSATION AGAIN DISCUSSED WITH [facility] STILL SMOKING ABOUT 1 PACK PER DAY ON HOME 02!!
[2019-11-11] MEDS ORDERED: PT OWN MED DRAWER 7, Y5N ONE ×2 (10:11→11:37)
[2019-11-11] MEDS: PANTOPRAZOLE 20 MG TABLET PO SCH (10:12)
[2019-11-11] MEDS: MUPIROCIN 2% TOPICAL OINTMENT FOR DECOLONIZATION NS SCH ×2 (10:12→21:17)
[2019-11-11] MEDS: LOSARTAN POTASSIUM 50 MG TABLET (FP) PO SCH (10:13)
[2019-11-11] MEDS: amLODIPine BESYLATE 5 MG TABLET (FP) PO SCH (10:14)
[2019-11-11] MEDS: ENOXAPARIN NA (PORCINE) 40 MG/0.4 ML DISP.SYRIN SQ SCH (10:14)
[2019-11-11] MEDS: CLOPIDOGREL BISULFATE 75 MG TABLET (FP) PO SCH (10:14)
[2019-11-11] MEDS: LACTOBACILLUS ACIDOPHILUS 1 TABLET PO SCH ×2 (10:14→21:14)
[2019-11-11] MEDS ORDERED: NICOTINE 21 MG/24 HOURS TOPICAL PATCH TD SCH (10:15)
--- NOTE | 2019-11-11 10:55 | PN ---
Teaching Attending Note Name of Resident: Eulalia Valdes ATTENDING PHYSICIAN STATEMENT I saw and evaluated the patient. I reviewed the resident's note and discussed the case with the resident. I agree with the resident's findings and plan as documented. SUBJECTIVE: Patient seen and examined in the ICU. Awake and alert on NC O2. Mildly tachypneic at rest. Anxious. Used NIPPV support overnight. Intake & Output 11/08/19 11/09/19 11/10/19 11/11/19 23:59 23:59 23:59 23:59 Intake Total 100 350 350 Balance 100 350 350 Weight 89 lb 5 oz 95 lb 93 lb 7.616 oz 96 lb 6.4 oz Last Vital Signs Temp Pulse Resp BP Pulse Ox 98.0 F 61 27 H 158/75 91 L 11/11/19 06:00 11/11/19 06:00 11/11/19 09:00 11/11/19 06:00 11/11/19 09:00 Active Medications Albuterol Sulfate (Ventolin 0.083% Nebulizer Soln -) 1 amp NEB Q3H PRN PRN Reason: SHORTNESS OF BREATH Albuterol/Ipratropium (Duoneb -) 1 amp NEB RQID [facility] Last Admin: 11/11/19 07:35 Dose: 1 amp Alprazolam (Xanax -) 0.25 mg PO Q12H PRN PRN Reason: ANXIETY Amlodipine Besylate (Norvasc -) 5 mg PO DAILY [facility] Last Admin: 11/11/19 10:14 Dose: 5 mg Atorvastatin Calcium (Lipitor -) 80 mg PO [facility] Last Admin: 11/10/19 21:29 Dose: Not Given Chlorhexidine Gluconate (Hibiclens For Decolonization -) 1 applic TP [facility] Last Admin: 11/10/19 21:29 Dose: 1 applic Clopidogrel Bisulfate (Plavix -) 75 mg PO DAILY [facility] Last Admin: 11/11/19 10:14 Dose: 75 mg Enoxaparin Sodium (Lovenox -) 40 mg SQ DAILY [facility] Last Admin: 11/11/19 10:14 Dose: 40 mg Azithromycin 250 mg/ Dextrose 250 mls @ 250 mls/hr IVPB DAILY [facility] Last Admin: 11/10/19 10:45 Dose: 250 mls/hr Lactobacillus Acidophilus (Bacid -) 1 tab PO BID [facility] Last Admin: 11/11/19 10:14 Dose: 1 tab Losartan Potassium (Cozaar -) 100 mg PO DAILY [facility] Last Admin: 11/11/19 10:13 Dose: 100 mg Methylprednisolone Sodium Succinate (Solu-Medrol -) 80 mg IVPUSH Q8H-IV [facility] Last Admin: 11/11/19 10:16 Dose: 80 mg Mupirocin (Bactroban Ointment (For Decolonization) -) 1 applic NS BID [facility] Stop: 11/13/19 21:59 Last Admin: 11/11/19 10:12 Dose: 1 applic Nicotine (Nicoderm Patch -) 21 mg TD DAILY [facility] Last Admin: 11/11/19 10:29 Dose: Not Given Nystatin (Nystatin Oral Suspension -) 500,000 units PO Q6HPO [facility] Last Admin: 11/11/19 06:36 Dose: Not Given Pantoprazole Sodium (Protonix -) 20 mg PO DAILY [facility] Last Admin: 11/11/19 10:12 Dose: 20 mg Roflumilast (Daliresp) 500 mcg PO DAILY [facility] Constitutional: Yes: Mildly tachypneic on NC O2 Eyes: Yes: Conjunctiva Clear, EOM Intact HENT: Yes: Atraumatic, Normocephalic Neck: Yes: Supple, Trachea Midline Cardiovascular: Yes: Regular Rate and Rhythm Respiratory: Yes: Bilateral Rhonchi and expiratory Wheezes ...Clubbing: No Gastrointestinal: Yes: Normal Bowel Sounds, Soft. No: Tenderness Edema: No Neurological: Yes: Alert, Oriented Labs: Laboratory Results - last 24 hr 11/10/19 11/11/19 11/11/19 05:18 05:20 05:20 WBC 11.4 H RBC 4.26 Hgb 12.2 Hct 37.0 MCV 86.7 MCH 28.6 MCHC 33.0 RDW 19.1 H Plt Count 313 MPV 7.9 Absolute Neuts (auto) 10.3 H Neutrophils % 89.9 H Neutrophils % (Manual) 93.0 H Band Neutrophils % 3.0 Lymphocytes % 5.9 L D Lymphocytes % (Manual) 3.0 L D Monocytes % 4.1 D Monocytes % (Manual) 1 L D Eosinophils % 0.0 Eosinophils % (Manual) 0.0 Basophils % 0.1 Basophils % (Manual) 0.0 Myelocytes % (Man) 0 Promyelocytes % (Man) 0 Blast Cells % (Manual) 0 Nucleated RBC % 0 0 Metamyelocytes 0 Hypochromia 0 Platelet Estimate Normal Polychromasia 1+ Poikilocytosis 1+ Anisocytosis 2+ Microcytosis 1+ Macrocytosis 0 Spherocytes 1+ Ovalocytes 1+ Schistocytes 1+ Sodium 142 Potassium 4.0 Chloride 101 Carbon Dioxide 37 H Anion Gap 4 L BUN 29.3 H Creatinine 0.8 Est GFR (CKD-EPI)AfAm 84.77 Est GFR (CKD-EPI)NonAf 73.14 Random Glucose 99 Calcium 9.3 Phosphorus 4.6 Magnesium 2.5 H Total Bilirubin 0.7 AST 21 ALT 35 Alkaline Phosphatase 59 Total Protein 6.0 L Albumin 3.5 Problem List - Problems (1) Acute on chronic respiratory failure with hypoxia and hypercapnia Code(s): J96.21 - ACUTE AND CHRONIC RESPIRATORY FAILURE WITH HYPOXIA; J96.22 - ACUTE AND CHRONIC RESPIRATORY FAILURE WITH HYPERCAPNIA (2) COPD exacerbation Code(s): J44.1 - CHRONIC OBSTRUCTIVE PULMONARY DISEASE W (ACUTE) EXACERBATION Assessment/Plan Acute on Chronic Hypoxic and Hypercapneic Respiratory Failure Acute COPD Exacerbation Acute Bronchitis CAD AAA h/o Bladder Ca HTN Smoker - NC O2 as tolerated - NIPPV support QHS and PRN - IV medrol - inhaled bronchodilators standing and PRN - O2 to keep Spo2 >90% - antibiotics - DVT prophylaxis - smoking cessation - 4W / 4S / 2W monitoring for continuous oximetry Dr Morales OBJECTIVE: ASSESSMENT AND PLAN:
[2019-11-11] MEDS: AZITHROMYCIN IVPB 250 MG in DEXTROSE 5%-WATER - 250 ML IVPB SCH (12:13)
--- NOTE | 2019-11-11 14:48 | PN ---
Progress Note (short form) - Note Progress Note: s: sob worse today, no chest pain, palps, dizziness Current Medications Generic Name Dose Route Start Last Admin Trade Name Freq PRN Reason Stop Dose Admin Albuterol Sulfate 1 amp 11/08/19 15:11 Ventolin 0.083% Nebulizer Soln - NEB Q3H PRN SHORTNESS OF BREATH Albuterol/Ipratropium 1 amp 11/08/19 16:00 11/11/19 11:42 Duoneb - NEB 1 amp RQID [facility] Administration Alprazolam 0.25 mg 11/08/19 15:18 Xanax - PO Q12H PRN ANXIETY Amlodipine Besylate 5 mg 11/09/19 10:00 11/11/19 10:14 Norvasc - PO 5 mg DAILY [facility] Administration Atorvastatin Calcium 80 mg 11/08/19 22:00 11/10/19 21:29 Lipitor - PO Not Given HS [facility] Chlorhexidine Gluconate 1 applic 11/08/19 22:00 11/10/19 21:29 Hibiclens For Decolonization - TP 1 applic HS [facility] Administration Clopidogrel Bisulfate 75 mg 11/09/19 10:00 11/11/19 10:14 Plavix - PO 75 mg DAILY [facility] Administration Enoxaparin Sodium 40 mg 11/09/19 10:00 11/11/19 10:14 Lovenox - SQ 40 mg DAILY [facility] Administration Azithromycin 250 mg/ Dextrose 250 mls @ 250 mls/hr 11/10/19 10:00 11/11/19 12 :13 IVPB 250 mls/hr DAILY [facility] Administration Lactobacillus Acidophilus 1 tab 11/08/19 22:00 11/11/19 10:14 Bacid - PO 1 tab BID [facility] Administration Losartan Potassium 100 mg 11/09/19 10:00 11/11/19 10:13 Cozaar - PO 100 mg DAILY [facility] Administration Methylprednisolone Sodium Succinate 80 mg 11/08/19 18:00 11/11/19 10:16 Solu-Medrol - IVPUSH 80 mg Q8H-IV [facility] Administration Mupirocin 1 applic 11/08/19 22:00 11/11/19 10:12 Bactroban Ointment (For Decolonization) - NS 11/13/19 21:59 1 applic BID [facility] Administration Nicotine 21 mg 11/11/19 10:15 11/11/19 10:29 Nicoderm Patch - TD Not Given DAILY [facility] Nystatin 500,000 units 11/09/19 00:00 11/11/19 12:13 Nystatin Oral Suspension - PO 500,000 units Q6HPO [facility] Administration Pantoprazole Sodium 20 mg 11/09/19 10:00 11/11/19 10:12 Protonix - PO 20 mg DAILY [facility] Administration Roflumilast 500 mcg 11/09/19 10:00 Daliresp PO DAILY [facility] Vital Signs Period Temp Pulse Resp BP Sys/Lock Pulse Ox Last 24 Hr 97.8 F-98.2 F 61-88 18-27 128-167/51-98 91-96 Constitutional: Yes: No Distress, Calm Eyes: Yes: Conjunctiva Clear Respiratory: Yes: Other (+rhonchi,diffuse exp wheezes) Gastrointestinal: Yes: Soft JVD: No Heart Sounds: Yes: S1, S2 (rrr) Edema: No (warm) Neurological: Yes: Alert, oriented x 3 no jaundice, diaphoresis not agitated CBC, BMP 11/11/19 05:20 11/11/19 05:20 Imaging - Results Chest X-ray: Image Reviewed (Hyperinflated. No infiltrates or effusions) EKG: Image Reviewed (NSR, old IWMI pattern, poor R wave progression- no change from prior) Assessment/Plan DATA: Echo 04/2019- Normal LVEF. E:A reversal c/w early diastolic dysfx, RV not well seen. tele: sr IMP/PLAN: 1. Acute respiratory failure: secondary to acute on chronic advanced COPD -NIPPV as per critical care -Steroids per pulm -PPI 2. Chronic CAD, remote pci, w/o angina: -mult prior stents (prox and mid LAD, entire RCA and RPDA) all patent on cath 2013 -no angina (chronic sob with chest pressure is copd sx--present prior to cath and unchanged since) -no signs acs -cont plavix, statin, arb 3. Chronic diast chf: -borderline depressed LVEF (45% on v-gram, 50% echo 2015) with moderately incr' d LVEDP at cath (24) -never clinical chf, no sob response to trial of lasix in past -BNP has always been elevated and near 1000 range. -appears euvolemic, CXR no congestion -no diuretics at this point 3. HTN: -known bp lability from anxiety at times -stable, cont home meds 4.HPL: -cont home statin 5. +cigs: -previously counselled on cessation many times, not interested in quitting 6. Descending thoracic aortic aneurysm: -3.[address] chest 04/2019 -cont bp control - outpatient follow up for monitoring
--- NOTE | 2019-11-11 16:06 | PN ---
Physical Exam: SUBJECTIVE: Patient seen and examined in the morning. No acute events overnight. Have minimized settings for BiPAP. Denies chest pain, shortness of breath, abdominal pain nausea, vomiting, diarrhea. OBJECTIVE: Vital Signs Period Temp Pulse Resp BP Sys/Lock Pulse Ox Last 24 Hr 97.8 F-98.2 F 61-88 18-27 128-167/51-98 91-96 GENERAL: The patient is awake, alert, and fully oriented, in no acute distress. HEAD: Normal with no signs of trauma. EYES: EOMI ENT: Ventimask in place. NECK: Trachea midline, full range of motion, supple. LUNGS: Poor airway movement, no wheezes or crackles appreciated. HEART: S1 S2 present, no murmurs rubs or gallops appreciated. ABDOMEN: Soft, nontender, normoactive bowel sounds. EXTREMITIES: 2+ pulses, warm, well-perfused, no edema. NEUROLOGICAL: Cranial nerves II through XII grossly intact. Normal speech, gait not observed. PSYCH: Normal mood, normal affect. SKIN: Warm, dry, normal turgor, no rashes or lesions noted Laboratory Results - last 24 hr 11/11/19 11/11/19 05:20 05:20 WBC 11.4 H RBC 4.26 Hgb 12.2 Hct 37.0 MCV 86.7 MCH 28.6 MCHC 33.0 RDW 19.1 H Plt Count 313 MPV 7.9 Absolute Neuts (auto) 10.3 H Neutrophils % 89.9 H Lymphocytes % 5.9 L D Monocytes % 4.1 D Eosinophils % 0.0 Basophils % 0.1 Nucleated RBC % 0 Sodium 142 Potassium 4.0 Chloride 101 Carbon Dioxide 37 H Anion Gap 4 L BUN 29.3 H Creatinine 0.8 Est GFR (CKD-EPI)AfAm 84.77 Est GFR (CKD-EPI)NonAf 73.14 Random Glucose 99 Calcium 9.3 Phosphorus 4.6 Magnesium 2.5 H Total Bilirubin 0.7 AST 21 ALT 35 Alkaline Phosphatase 59 Total Protein 6.0 L Albumin 3.5 Active Medications Generic Name Dose Route Start Last Admin Trade Name Freq PRN Reason Stop Dose Admin Albuterol Sulfate 1 amp 11/08/19 15:11 Ventolin 0.083% Nebulizer Soln - NEB Q3H PRN SHORTNESS OF BREATH Albuterol/Ipratropium 1 amp 11/08/19 16:00 11/11/19 11:42 Duoneb - NEB 1 amp RQID [facility] Administration Amlodipine Besylate 5 mg 11/09/19 10:00 11/11/19 10:14 Norvasc - PO 5 mg DAILY [facility] Administration Atorvastatin Calcium 80 mg 11/08/19 22:00 11/10/19 21:29 Lipitor - PO Not Given HS [facility] Chlorhexidine Gluconate 1 applic 11/08/19 22:00 11/10/19 21:29 Hibiclens For Decolonization - TP 1 applic HS [facility] Administration Clopidogrel Bisulfate 75 mg 11/09/19 10:00 11/11/19 10:14 Plavix - PO 75 mg DAILY [facility] Administration Enoxaparin Sodium 40 mg 11/09/19 10:00 11/11/19 10:14 Lovenox - SQ 40 mg DAILY [facility] Administration Azithromycin 250 mg/ Dextrose 250 mls @ 250 mls/hr 11/10/19 10:00 11/11/19 12 :13 IVPB 250 mls/hr DAILY [facility] Administration Lactobacillus Acidophilus 1 tab 11/08/19 22:00 11/11/19 10:14 Bacid - PO 1 tab BID [facility] Administration Losartan Potassium 100 mg 11/09/19 10:00 11/11/19 10:13 Cozaar - PO 100 mg DAILY [facility] Administration Methylprednisolone Sodium Succinate 80 mg 11/08/19 18:00 11/11/19 10:16 Solu-Medrol - IVPUSH 80 mg Q8H-IV [facility] Administration Mupirocin 1 applic 11/08/19 22:00 11/11/19 10:12 Bactroban Ointment (For Decolonization) - NS 11/13/19 21:59 1 applic BID [facility] Administration Nicotine 21 mg 11/11/19 10:15 11/11/19 10:29 Nicoderm Patch - TD Not Given DAILY [facility] Nystatin 500,000 units 11/09/19 00:00 11/11/19 12:13 Nystatin Oral Suspension - PO 500,000 units Q6HPO [facility] Administration Pantoprazole Sodium 20 mg 11/09/19 10:00 11/11/19 10:12 Protonix - PO 20 mg DAILY [facility] Administration Roflumilast 500 mcg 11/09/19 10:00 Daliresp PO DAILY [facility] ASSESSMENT/PLAN: 74F PMH COPD (3-4L [place] home), current smoker, HTN/HLD, bladder cancer, presented for SOB, transferred to acute respiratory failure on BiPAP. Neuro -AAOx3, mentating well. -Neurochecks CV -Hx of CAD, AAA, -Continue home meds: Amlodipine 5, Losartan 100, lipitor 80 Pulm -Hx of chronic tobacco use -Acute COPD Exacerbation -Bipap 12/6 RR 12 Fio2 40%. Will try to place on ventimask when tolerating. -CXR shows no infiltrate. -Duonebs QID, Albuterol neb PRN -Solumedrol 80 mg Q8H IV -Smoking cessation counseling GI -No acute issues, continuing to monitor -Protonix 20 mg Daily Renal -No acute issues, continue to monitor urine output and electrolytes. ID -Sputum cx prelim negative DVT: Lovenox F: oral hydration E: monitor CMP N: Soft diet. Dispo:Transfer to . Visit type - Emergency Visit Emergency Visit: Yes ED Registration Date: 11/07/19 Care time: The patient presented to the Emergency Department on the above date and was hospitalized for further evaluation of their emergent condition. - New Patient This patient is new to me today: No - Critical Care Critical Care patient: Yes Total Critical Care Time (in minutes): 45 Critical Care Statement: The care of this patient involved high complexity decision making to prevent further life threatening deterioration of the patient 's condition and/or to evaluate & treat vital organ system(s) failure or risk of failure. ATTENDING PHYSICIAN STATEMENT I saw and evaluated the patient. I reviewed the resident's note and discussed the case with the resident. I agree with the resident's findings and plan as documented. SUBJECTIVE: OBJECTIVE: ASSESSMENT AND PLAN:
[2019-11-11] MEDS ORDERED: ALBUTEROL SO4 0.083% IH SOL 2.5 MG/3 ML VIAL.NEB. NEB PRN (20:17)
[2019-11-11] MEDS: ATORVASTATIN CA 80 MG TABLET (FP) PO SCH (21:14)
[2019-11-11] MEDS: CHLORHEXIDINE GLUCONATE 4% CLEANSER FOR DECOLONIZATION TP SCH (21:15)
[2019-11-12] MEDS: methylPREDNISolone NA SUCC 125 MG/2 ML VIAL IVPUSH SCH ×3 (01:28→17:37)
[2019-11-12] MEDS: NYSTATIN 500,000 UNITS/5 ML SUSPENSION PO SCH ×4 (01:29→17:38)
[2019-11-12 07:12] LABS: BASO % 0.1 % (0-2.0); HEMATOCRIT 36.8 % (32.4-45.2); HEMOGLOBIN 12.2 GM/dL (10.7-15.3); LYMPH % 10.2 % (8-40); MCH 28.9 pg (25.7-33.7); MCHC 33.2 g/dl (32.0-36.0); MEAN CELL VOLUME 87.2 fl (80-96); MEAN PLT VOLUME 7.9 fl (7.5-11.1); MONO % 6.3 % (3.8-10.2); NEUT % 83.4 % (42.8-82.8); PLATELET COUNT 282 K/MM3 (134-434); RBC 4.23 M/mm3 (3.60-5.2); RDW 18.8 % (11.6-15.6); WHITE BLOOD COUNT 10.4 K/mm3 (4.0-10.0)
[2019-11-12 07:41] LABS: ALBUMIN 3.5 g/dl (3.4-5.0); BILIRUBIN,TOTAL 0.7 mg/dL (0.2-1); BLOOD UREA NITROGEN 32.9 mg/dL (7-18); CALCIUM 8.9 mg/dL (8.5-10.1); CREATININE 0.8 mg/dL (0.55-1.3); MAGNESIUM 2.5 mg/dL (1.8-2.4); PHOSPHOROUS 3.3 mg/dL (2.5-4.9); POTASSIUM 4.1 mmol/L (3.5-5.1); TOT PROT 5.7 g/dl (6.4-8.2)
[2019-11-12] MEDS: ALBUTEROL SO4 2.5/IPRATROPIUM 0.5 INH SOL 3 ML VIAL.NEB. NEB SCH ×4 (08:20→21:35)
--- NOTE | 2019-11-12 08:48 | PN ---
Progress Note, Physician Chief Complaint: resp failure History of Present Illness: very sob still no cp no palp, swelling very scared to , though she realizes she is likely to continue being admitted with severe a.e. copd frequently given recent events/mult admits. understands quitting smoking may help decrease those exacerbations, but she feels she is addicted and cannot quit. declines chantix b/c of very limited finances, only takes generics--can look into copay assistance program with company as outpt - Current Medication List Current Medications: Active Medications Albuterol Sulfate (Ventolin 0.083% Nebulizer Soln -) 1 amp NEB Q3H PRN PRN Reason: SHORTNESS OF BREATH Albuterol/Ipratropium (Duoneb -) 1 amp NEB RQID [facility] Amlodipine Besylate (Norvasc -) 5 mg PO DAILY [facility] Atorvastatin Calcium (Lipitor -) 80 mg PO HS [facility] Last Admin: 11/11/19 21:14 Dose: 80 mg Chlorhexidine Gluconate (Hibiclens For Decolonization -) 1 applic TP HS [facility] Last Admin: 11/11/19 21:15 Dose: 1 applic Clopidogrel Bisulfate (Plavix -) 75 mg PO DAILY [facility] Enoxaparin Sodium (Lovenox -) 40 mg SQ DAILY [facility] Azithromycin 250 mg/ Dextrose 250 mls @ 250 mls/hr IVPB DAILY [facility] Lactobacillus Acidophilus (Bacid -) 1 tab PO BID [facility] Last Admin: 11/11/19 21:14 Dose: 1 tab Losartan Potassium (Cozaar -) 100 mg PO DAILY [facility] Methylprednisolone Sodium Succinate (Solu-Medrol -) 80 mg IVPUSH Q8H-IV [facility] Last Admin: 11/12/19 01:28 Dose: 80 mg Mupirocin (Bactroban Ointment (For Decolonization) -) 1 applic NS BID [facility] Stop: 11/13/19 21:59 Last Admin: 11/11/19 21:17 Dose: 1 applic Nicotine (Nicoderm Patch -) 21 mg TD DAILY [facility] Nystatin (Nystatin Oral Suspension -) 500,000 units PO Q6HPO [facility] Last Admin: 11/12/19 05:19 Dose: 500,000 units Pantoprazole Sodium (Protonix -) 20 mg PO DAILY [facility] Roflumilast (Daliresp) 500 mcg PO DAILY [facility] - Objective Vital Signs: Vital Signs Temperature 98.3 F 11/12/19 08:00 Pulse Rate 64 11/12/19 08:00 Respiratory Rate 19 11/12/19 08:00 Blood Pressure 172/77 H 11/12/19 08:00 O2 Sat by Pulse Oximetry (%) 99 11/12/19 08:00 Constitutional: Yes: Well Nourished, No Distress, Calm Cardiovascular: Yes: Regular Rate and Rhythm (decr intensity (copd)), S1, S2. No: Gallop, Murmur Respiratory: Yes: Regular, CTA Bilaterally (decr diffusely (copd)), Accessory Muscle Use. No: Rales, Wheezes Extremities: No: Cold Edema: No Neurological: Yes: Alert, Oriented Psychiatric: No: Agitated Labs: CBC, BMP 11/12/19 06:03 11/12/19 06:03 Assessment/Plan Echo 04/2019- Normal LVEF. E:A reversal c/w early diastolic dysfx, RV not well seen. tele: NSR with freq APCs IMP/PLAN: Acute respiratory failure: secondary to acute on chronic advanced COPD -NIPPV as per critical care -Steroids, BDs per pulm -PPI Chronic CAD, remote pci, w/o angina: -mult prior stents (prox and mid LAD, entire RCA and RPDA) all patent on cath 2013 -no angina (chronic sob with chest pressure is copd sx--present prior to cath and unchanged since) -no signs acs -cont plavix, statin, arb Chronic diast chf: -borderline depressed LVEF (45% on v-gram, 50% echo 2015) with moderately incr' d LVEDP at cath (24) -never clinical chf, no sob response to trial of lasix in past -BNP has always been elevated and near 1000 range. -appears euvolemic, CXR no congestion -no diuretics at this point HTN: -known bp lability from anxiety at times -stable, cont home meds HPL: -cont home statin +cigs: -previously counselled on cessation many times, not interested in quitting Descending thoracic aortic aneurysm: -3.[address] chest 04/2019 -cont bp control -outpatient follow up for monitoring
[2019-11-12] MEDS ORDERED: AZITHROMYCIN IVPB 250 MG in DEXTROSE 5%-WATER - 250 ML IVPB SCH (10:00)
[2019-11-12] MEDS ORDERED: AZITHROMYCIN IVPB 500 MG/250 ML BAG IVPB SCH (10:00)
[2019-11-12] MEDS: LACTOBACILLUS ACIDOPHILUS 1 TABLET PO SCH ×2 (10:02→22:20)
[2019-11-12] MEDS: LOSARTAN POTASSIUM 50 MG TABLET (FP) PO SCH (10:03)
[2019-11-12] MEDS: NICOTINE 21 MG/24 HOURS TOPICAL PATCH TD SCH (10:03)
[2019-11-12] MEDS: amLODIPine BESYLATE 5 MG TABLET (FP) PO SCH (10:03)
[2019-11-12] MEDS: ENOXAPARIN NA (PORCINE) 40 MG/0.4 ML DISP.SYRIN SQ SCH (10:03)
[2019-11-12] MEDS: PANTOPRAZOLE 20 MG TABLET PO SCH (10:04)
[2019-11-12] MEDS: CLOPIDOGREL BISULFATE 75 MG TABLET (FP) PO SCH (10:04)
[2019-11-12] MEDS: MUPIROCIN 2% TOPICAL OINTMENT FOR DECOLONIZATION NS SCH ×2 (10:21→21:44)
--- NOTE | 2019-11-12 12:03 | PN ---
Progress Note (short form) - Note Progress Note: PULMONARY Still short of breath, anxious. Used BiPAP overnight. Vital Signs Period Temp Pulse Resp BP Sys/Lock Pulse Ox Last 24 Hr 97.7 F-98.3 F 62-78 18-23 136-172/47-77 94-99 Gen: tachypneic at rest Heart: irregular Lung: distant breath sounds Abd: soft, nontender Ext: no edema CBC, BMP 11/12/19 06:03 11/12/19 06:03 Active Medications Albuterol Sulfate (Ventolin 0.083% Nebulizer Soln -) 1 amp NEB Q3H PRN PRN Reason: SHORTNESS OF BREATH Albuterol/Ipratropium (Duoneb -) 1 amp NEB RQID [facility] Last Admin: 11/12/19 08:20 Dose: 1 amp Amlodipine Besylate (Norvasc -) 5 mg PO DAILY [facility] Last Admin: 11/12/19 10:03 Dose: 5 mg Atorvastatin Calcium (Lipitor -) 80 mg PO HS [facility] Last Admin: 11/11/19 21:14 Dose: 80 mg Chlorhexidine Gluconate (Hibiclens For Decolonization -) 1 applic TP HS [facility] Last Admin: 11/11/19 21:15 Dose: 1 applic Clopidogrel Bisulfate (Plavix -) 75 mg PO DAILY [facility] Last Admin: 11/12/19 10:04 Dose: 75 mg Enoxaparin Sodium (Lovenox -) 40 mg SQ DAILY [facility] Last Admin: 11/12/19 10:03 Dose: 40 mg Azithromycin 250 mg/ Dextrose 250 mls @ 250 mls/hr IVPB DAILY [facility] Last Admin: 11/12/19 10:50 Dose: 250 mls/hr Lactobacillus Acidophilus (Bacid -) 1 tab PO BID [facility] Last Admin: 11/12/19 10:02 Dose: 1 tab Losartan Potassium (Cozaar -) 100 mg PO DAILY [facility] Last Admin: 11/12/19 10:03 Dose: 100 mg Methylprednisolone Sodium Succinate (Solu-Medrol -) 80 mg IVPUSH Q8H-IV [facility] Last Admin: 11/12/19 10:04 Dose: 80 mg Mupirocin (Bactroban Ointment (For Decolonization) -) 1 applic NS BID [facility] Stop: 11/13/19 21:59 Last Admin: 11/12/19 10:21 Dose: 1 applic Nicotine (Nicoderm Patch -) 21 mg TD DAILY [facility] Last Admin: 11/12/19 10:03 Dose: 21 mg Nystatin (Nystatin Oral Suspension -) 500,000 units PO Q6HPO [facility] Last Admin: 11/12/19 05:19 Dose: 500,000 units Pantoprazole Sodium (Protonix -) 20 mg PO DAILY [facility] Last Admin: 11/12/19 10:04 Dose: 20 mg Roflumilast (Daliresp) 500 mcg PO DAILY [facility] A/P Acute on Chronic Hypoxic and Hypercapneic Respiratory Failure Acute COPD Exacerbation Acute Bronchitis CAD AAA h/o Bladder Ca HTN Smoker - continue medrol - inhaled bronchodilators standing and PRN - O2 to keep Spo2 >90% - BiPAP at night and PRN during day - on antibiotics - DVT prophylaxis - will start low dose anxiolytic - smoking cessation Problem List - Problems (1) Acute on chronic respiratory failure with hypoxia and hypercapnia Code(s): J96.21 - ACUTE AND CHRONIC RESPIRATORY FAILURE WITH HYPOXIA; J96.22 - ACUTE AND CHRONIC RESPIRATORY FAILURE WITH HYPERCAPNIA (2) COPD exacerbation Code(s): J44.1 - CHRONIC OBSTRUCTIVE PULMONARY DISEASE W (ACUTE) EXACERBATION
[2019-11-12] MEDS: clonazePAM 0.5 MG TABLET PO SCH ×2 (12:56→21:41)
--- NOTE | 2019-11-12 15:31 | PN ---
Progress Note, Physician Chief Complaint: COPD Exacerbation History of Present Illness: Previous notes and events reviewed awake and alert NAD Bipap HS and prn denies chest pain or dizziness sts her breathing is improved - Current Medication List Current Medications: Active Medications Albuterol Sulfate (Ventolin 0.083% Nebulizer Soln -) 1 amp NEB Q3H PRN PRN Reason: SHORTNESS OF BREATH Albuterol/Ipratropium (Duoneb -) 1 amp NEB RQID [facility] Last Admin: 11/12/19 12:10 Dose: 1 amp Amlodipine Besylate (Norvasc -) 5 mg PO DAILY [facility] Last Admin: 11/12/19 10:03 Dose: 5 mg Atorvastatin Calcium (Lipitor -) 80 mg PO HS [facility] Last Admin: 11/11/19 21:14 Dose: 80 mg Chlorhexidine Gluconate (Hibiclens For Decolonization -) 1 applic TP HS [facility] Last Admin: 11/11/19 21:15 Dose: 1 applic Clonazepam (Klonopin -) 0.5 mg PO BID [facility] Last Admin: 11/12/19 12:56 Dose: 0.5 mg Clopidogrel Bisulfate (Plavix -) 75 mg PO DAILY [facility] Last Admin: 11/12/19 10:04 Dose: 75 mg Enoxaparin Sodium (Lovenox -) 40 mg SQ DAILY [facility] Last Admin: 11/12/19 10:03 Dose: 40 mg Azithromycin 250 mg/ Dextrose 250 mls @ 250 mls/hr IVPB DAILY [facility] Last Admin: 11/12/19 10:50 Dose: 250 mls/hr Lactobacillus Acidophilus (Bacid -) 1 tab PO BID [facility] Last Admin: 11/12/19 10:02 Dose: 1 tab Losartan Potassium (Cozaar -) 100 mg PO DAILY [facility] Last Admin: 11/12/19 10:03 Dose: 100 mg Methylprednisolone Sodium Succinate (Solu-Medrol -) 80 mg IVPUSH Q8H-IV [facility] Last Admin: 11/12/19 10:04 Dose: 80 mg Mupirocin (Bactroban Ointment (For Decolonization) -) 1 applic NS BID [facility] Stop: 11/13/19 21:59 Last Admin: 11/12/19 10:21 Dose: 1 applic Nicotine (Nicoderm Patch -) 21 mg TD DAILY [facility] Last Admin: 11/12/19 10:03 Dose: 21 mg Nystatin (Nystatin Oral Suspension -) 500,000 units PO Q6HPO [facility] Last Admin: 11/12/19 12:56 Dose: 500,000 units Pantoprazole Sodium (Protonix -) 20 mg PO DAILY [facility] Last Admin: 11/12/19 10:04 Dose: 20 mg Roflumilast (Daliresp) 500 mcg PO DAILY [facility] - Objective Vital Signs: Vital Signs Temperature 98.4 F 11/12/19 14:00 Pulse Rate 84 11/12/19 14:00 Respiratory Rate 19 11/12/19 14:00 Blood Pressure 109/62 11/12/19 14:00 O2 Sat by Pulse Oximetry (%) 94 L 11/12/19 08:00 Constitutional: Yes: No Distress, Calm, Cachectic Eyes: Yes: Conjunctiva Clear HENT: Yes: Atraumatic Cardiovascular: Yes: Regular Rate and Rhythm Respiratory: Yes: Regular, CTA Bilaterally Gastrointestinal: Yes: Normal Bowel Sounds, Soft Musculoskeletal: Yes: Muscle Weakness Extremities: Yes: WNL Edema: No Neurological: Yes: Alert, Oriented Psychiatric: Yes: Alert, Oriented Labs: CBC, BMP 11/12/19 06:03 11/12/19 06:03 Microbiology 11/08/19 08:45 Sputum - Expectorated Gram Stain - Final 11/08/19 08:45 Sputum - Expectorated Sputum Culture - Final NORMAL RESPIRATORY [facility] Problem List - Problems (1) Acute on chronic respiratory failure with hypercapnia Assessment/Plan: -Pulmonary on board -CXR shows no acute chest pathology -Bipap -IV Solumedrol -bronchodilators -keep SpO2 >90% -Daliresp -sputum culture pending -Influenza A & B rapid neg Code(s): J96.22 - ACUTE AND CHRONIC RESPIRATORY FAILURE WITH HYPERCAPNIA (2) Anxiety Assessment/Plan: -Klonopin BID Code(s): F41.9 - ANXIETY DISORDER, UNSPECIFIED (3) Bladder cancer Assessment/Plan: -follow up with Oncology as scheduled Code(s): C67.9 - MALIGNANT NEOPLASM OF BLADDER, UNSPECIFIED (4) CAD (coronary artery disease) Assessment/Plan: -Atorvastatin and Plavix Code(s): I25.10 - ATHSCL HEART DISEASE OF [place] CORONARY ARTERY W/O ANG PCTRS (5) COPD exacerbation Assessment/Plan: -Pulmonary on board -CXR shows no acute chest pathology -Bipap -IV Solumedrol -bronchodilators -Bipap PRN and HS -keep SpO2 >90% -Dalires Code(s): J44.1 - CHRONIC OBSTRUCTIVE PULMONARY DISEASE W (ACUTE) EXACERBATION (6) Chronic diastolic CHF (congestive heart failure) Assessment/Plan: -Cardiology consult -1L fluid restriction -low Na diet -strict I&Os -BNP 1316.2 Code(s): I50.32 - CHRONIC DIASTOLIC (CONGESTIVE) HEART FAILURE (7) HTN (hypertension) Assessment/Plan: -Amlodipine, Losartan -low Na diet Code(s): I10 - ESSENTIAL (PRIMARY) HYPERTENSION (8) Thoracic aortic aneurysm Assessment/Plan: -BP control -continue outpatient monitoring Code(s): I71.2 - THORACIC AORTIC ANEURYSM, WITHOUT RUPTURE Assessment/Plan see problem list dvt ppx
[2019-11-12] MEDS: ATORVASTATIN CA 80 MG TABLET (FP) PO SCH (21:41)
[2019-11-12] MEDS: CHLORHEXIDINE GLUCONATE 4% CLEANSER FOR DECOLONIZATION TP SCH (21:44)
[2019-11-13] MEDS: NYSTATIN 500,000 UNITS/5 ML SUSPENSION PO SCH ×4 (00:02→17:49)
[2019-11-13] MEDS: methylPREDNISolone NA SUCC 125 MG/2 ML VIAL IVPUSH SCH ×4 (01:02→17:49)
[2019-11-13] MEDS: ALBUTEROL SO4 2.5/IPRATROPIUM 0.5 INH SOL 3 ML VIAL.NEB. NEB SCH ×4 (07:11→21:24)
[2019-11-13 07:18] LABS: HEMATOCRIT 35.3 % (32.4-45.2); HEMOGLOBIN 11.5 GM/dL (10.7-15.3); MCH 28.4 pg (25.7-33.7); MCHC 32.7 g/dl (32.0-36.0); MEAN CELL VOLUME 86.6 fl (80-96); MEAN PLT VOLUME 8.2 fl (7.5-11.1); PLATELET COUNT 262 K/MM3 (134-434); RBC 4.07 M/mm3 (3.60-5.2); RDW 18.5 % (11.6-15.6)
[2019-11-13 07:56] LABS: ALBUMIN 3.3 g/dl (3.4-5.0); BLOOD UREA NITROGEN 34.2 mg/dL (7-18); CALCIUM 8.8 mg/dL (8.5-10.1); CREATININE 0.8 mg/dL (0.55-1.3); POTASSIUM 4.2 mmol/L (3.5-5.1); TOT PROT 5.4 g/dl (6.4-8.2)
--- NOTE | 2019-11-13 08:12 | PN ---
Progress Note, Physician Chief Complaint: AWAKE IN ICU FEELING BETTER DENIES CHEST PAIN BUT DOES HAVE SOB NICOTINE PATCH FOR SMOKING CESSATION BIPAP USED AT NIGHT CURRENTLY ON - Current Medication List Current Medications: Active Medications Albuterol Sulfate (Ventolin 0.083% Nebulizer Soln -) 1 amp NEB Q3H PRN PRN Reason: SHORTNESS OF BREATH Albuterol/Ipratropium (Duoneb -) 1 amp NEB RQID [facility] Last Admin: 11/13/19 07:11 Dose: 1 amp Amlodipine Besylate (Norvasc -) 5 mg PO DAILY [facility] Last Admin: 11/12/19 10:03 Dose: 5 mg Atorvastatin Calcium (Lipitor -) 80 mg PO HS [facility] Last Admin: 11/12/19 21:41 Dose: 80 mg Chlorhexidine Gluconate (Hibiclens For Decolonization -) [address] [facility] Last Admin: 11/12/19 21:44 Dose: 1 applic Clonazepam (Klonopin -) 0.5 mg PO BID [facility] Last Admin: 11/12/19 21:41 Dose: 0.5 mg Clopidogrel Bisulfate (Plavix -) 75 mg PO DAILY [facility] Last Admin: 11/12/19 10:04 Dose: 75 mg Enoxaparin Sodium (Lovenox -) 40 mg SQ DAILY [facility] Last Admin: 11/12/19 10:03 Dose: 40 mg Azithromycin 250 mg/ Dextrose 250 mls @ 250 mls/hr IVPB DAILY [facility] Last Admin: 11/12/19 10:50 Dose: 250 mls/hr Lactobacillus Acidophilus (Bacid -) 1 tab PO BID [facility] Last Admin: 11/12/19 22:20 Dose: 1 tab Losartan Potassium (Cozaar -) 100 mg PO DAILY [facility] Last Admin: 11/12/19 10:03 Dose: 100 mg Methylprednisolone Sodium Succinate (Solu-Medrol -) 80 mg IVPUSH Q8H-IV [facility] Last Admin: 11/13/19 01:02 Dose: 80 mg Mupirocin (Bactroban Ointment (For Decolonization) -) 1 applic NS BID [facility] Stop: 11/13/19 21:59 Last Admin: 11/12/19 21:44 Dose: 1 applic Nicotine (Nicoderm Patch -) 21 mg TD DAILY [facility] Last Admin: 11/12/19 10:03 Dose: 21 mg Nystatin (Nystatin Oral Suspension -) 500,000 units PO Q6HPO [facility] Last Admin: 11/13/19 06:26 Dose: 500,000 units Pantoprazole Sodium (Protonix -) 20 mg PO DAILY [facility] Last Admin: 11/12/19 10:04 Dose: 20 mg Roflumilast (Daliresp) 500 mcg PO DAILY [facility] - Objective Vital Signs: Vital Signs Temperature 97.8 F 11/13/19 06:00 Pulse Rate 71 11/13/19 06:00 Respiratory Rate 16 11/13/19 06:00 Blood Pressure 163/65 11/13/19 06:00 O2 Sat by Pulse Oximetry (%) 98 11/13/19 04:00 Constitutional: Yes: Mild Distress Cardiovascular: Yes: Pulse Irregular Respiratory: Yes: Cough, Diminished, On BiPap, On Nasal O2 Gastrointestinal: Yes: Soft Genitourinary: Yes: WNL Musculoskeletal: Yes: Muscle Weakness Edema: No ...Motor Strength: WNL Psychiatric: Yes: WNL Labs: CBC, BMP 11/13/19 06:05 11/13/19 06:05 Problem List - Problems (1) COPD exacerbation Code(s): J44.1 - CHRONIC OBSTRUCTIVE PULMONARY DISEASE W (ACUTE) EXACERBATION (2) ASHD (arteriosclerotic heart disease) Code(s): I25.10 - ATHSCL HEART DISEASE OF [place] CORONARY ARTERY W/O ANG PCTRS (3) Acute on chronic respiratory failure with hypercapnia Code(s): J96.22 - ACUTE AND CHRONIC RESPIRATORY FAILURE WITH HYPERCAPNIA (4) Anxiety Code(s): F41.9 - ANXIETY DISORDER, UNSPECIFIED (5) Bladder cancer Code(s): C67.9 - MALIGNANT NEOPLASM OF BLADDER, UNSPECIFIED (6) Dyspnea Code(s): R06.00 - DYSPNEA, UNSPECIFIED (7) Thoracic aortic aneurysm Code(s): I71.2 - THORACIC AORTIC ANEURYSM, WITHOUT RUPTURE (8) Tobacco abuse Code(s): Z72.0 - TOBACCO USE Assessment/Plan PLAN IS TO CONTINUE IV STEROIDS AND AZITHROMYCIN BIPAP/02 NC FOR RESPIRATORY SUPPORT AWAIT DISPOSITION TO SNF FOR PULM REHAB OOB TO CHAIR PT EVAL NICOTINE PATCH CONTINUE ON ELIQUIS
[2019-11-13 08:28] LABS: BILIRUBIN,TOTAL 0.5 mg/dL (0.2-1)
--- NOTE | 2019-11-13 09:54 | PN ---
Progress Note, Physician Chief Complaint: resp failure History of Present Illness: anxiety much better today s/p med given yest. sob feels improved slightly no swelling, cp, palp - Current Medication List Current Medications: Active Medications Albuterol Sulfate (Ventolin 0.083% Nebulizer Soln -) 1 amp NEB Q3H PRN PRN Reason: SHORTNESS OF BREATH Albuterol/Ipratropium (Duoneb -) 1 amp NEB RQID [facility] Last Admin: 11/13/19 07:11 Dose: 1 amp Amlodipine Besylate (Norvasc -) 5 mg PO DAILY [facility] Last Admin: 11/12/19 10:03 Dose: 5 mg Atorvastatin Calcium (Lipitor -) 80 mg PO HS [facility] Last Admin: 11/12/19 21:41 Dose: 80 mg Azithromycin (Zithromax -) 250 mg PO DAILY [facility] Chlorhexidine Gluconate (Hibiclens For Decolonization -) 1 applic TP HS [facility] Last Admin: 11/12/19 21:44 Dose: 1 applic Clonazepam (Klonopin -) 0.5 mg PO BID [facility] Last Admin: 11/12/19 21:41 Dose: 0.5 mg Clopidogrel Bisulfate (Plavix -) 75 mg PO DAILY [facility] Last Admin: 11/12/19 10:04 Dose: 75 mg Enoxaparin Sodium (Lovenox -) 40 mg SQ DAILY [facility] Last Admin: 11/12/19 10:03 Dose: 40 mg Fluconazole (Fluconazole) 150 mg PO ONCE ONE Stop: 11/13/19 10:01 Lactobacillus Acidophilus (Bacid -) 1 tab PO BID [facility] Last Admin: 11/12/19 22:20 Dose: 1 tab Losartan Potassium (Cozaar -) 100 mg PO DAILY [facility] Last Admin: 11/12/19 10:03 Dose: 100 mg Methylprednisolone Sodium Succinate (Solu-Medrol -) 80 mg IVPUSH Q8H-IV [facility] Last Admin: 11/13/19 01:02 Dose: 80 mg Mupirocin (Bactroban Ointment (For Decolonization) -) 1 applic NS BID [facility] Stop: 11/13/19 21:59 Last Admin: 11/12/19 21:44 Dose: 1 applic Nicotine (Nicoderm Patch -) 21 mg TD DAILY [facility] Last Admin: 11/12/19 10:03 Dose: 21 mg Nystatin (Nystatin Oral Suspension -) 500,000 units PO Q6HPO [facility] Last Admin: 11/13/19 06:26 Dose: 500,000 units Pantoprazole Sodium (Protonix -) 20 mg PO DAILY [facility] Last Admin: 11/12/19 10:04 Dose: 20 mg Roflumilast (Daliresp) 500 mcg PO DAILY [facility] - Objective Vital Signs: Vital Signs Temperature 97.8 F 11/13/19 06:00 Pulse Rate 71 11/13/19 06:00 Respiratory Rate 16 11/13/19 06:00 Blood Pressure 163/65 11/13/19 06:00 O2 Sat by Pulse Oximetry (%) 98 11/13/19 04:00 Constitutional: Yes: Well Nourished, No Distress, Calm Cardiovascular: Yes: Regular Rate and Rhythm, S1, S2. No: Gallop, Murmur Respiratory: Yes: Regular, CTA Bilaterally. No: Accessory Muscle Use Extremities: No: Cold Edema: No Neurological: Yes: Alert, Oriented Psychiatric: No: Agitated Labs: CBC, BMP 11/13/19 06:05 11/13/19 06:05 Assessment/Plan Echo 04/2019- Normal LVEF. E:A reversal c/w early diastolic dysfx, RV not well seen. tele: NSR with freq APCs IMP/PLAN: Acute respiratory failure: secondary to acute on chronic advanced COPD -NIPPV as per critical care -Steroids, BDs per pulm -PPI Chronic CAD, remote pci, w/o angina: -mult prior stents (prox and mid LAD, entire RCA and RPDA) all patent on cath 2013 -no angina (chronic sob with chest pressure is copd sx--present prior to cath and unchanged since) -no signs acs -cont plavix, statin, arb Chronic diast chf: -borderline depressed LVEF (45% on v-gram, 50% echo 2015) with moderately incr' d LVEDP at cath (24) -never clinical chf, no sob response to trial of lasix in past -BNP has always been elevated and near 1000 range. -appears euvolemic, CXR no congestion -no diuretics at this point HTN: -known bp lability from anxiety at times -stable, cont home meds HPL: -cont home statin +cigs: -previously counselled on cessation many times, not interested in quitting -presently scared of from copd, willing to try but pessimistic re: chances for success. failed patch in past. d/w dr barraza--will try chantix if on formulary, then try to arrange copay reduction/financial assistance via company as outpt Descending thoracic aortic aneurysm: -3.[address] chest 04/2019 -cont bp control -outpatient follow up for monitoring
[2019-11-13] MEDS ORDERED: FLUCONAZOLE 150 MG TABLET PO ONE (10:00)
[2019-11-13] MEDS: ENOXAPARIN NA (PORCINE) 40 MG/0.4 ML DISP.SYRIN SQ SCH (10:02)
[2019-11-13] MEDS: NICOTINE 21 MG/24 HOURS TOPICAL PATCH TD SCH (10:02)
[2019-11-13] MEDS: LOSARTAN POTASSIUM 50 MG TABLET (FP) PO SCH (10:04)
[2019-11-13] MEDS: amLODIPine BESYLATE 5 MG TABLET (FP) PO SCH (10:05)
[2019-11-13] MEDS: clonazePAM 0.5 MG TABLET PO SCH ×2 (10:05→22:19)
[2019-11-13] MEDS: LACTOBACILLUS ACIDOPHILUS 1 TABLET PO SCH ×2 (10:05→22:19)
[2019-11-13] MEDS: CLOPIDOGREL BISULFATE 75 MG TABLET (FP) PO SCH (10:06)
[2019-11-13] MEDS: PANTOPRAZOLE 20 MG TABLET PO SCH (10:06)
[2019-11-13] MEDS: AZITHROMYCIN 250 MG TABLET PO SCH (11:02)
--- NOTE | 2019-11-13 11:04 | PN ---
Progress Note (short form) - Note Progress Note: PULMONARY Feels improved on klonopin. Vital Signs Period Temp Pulse Resp BP Sys/Lock Pulse Ox Last 24 Hr 97.8 F-98.4 F 60-84 16-24 109-166/57-92 94-98 Gen: less tachypneic at rest Heart: irregular Lung: distant breath sounds Abd: soft, nontender Ext: no edema CBC, BMP 11/13/19 06:05 11/13/19 06:05 Active Medications Albuterol Sulfate (Ventolin 0.083% Nebulizer Soln -) 1 amp NEB Q3H PRN PRN Reason: SHORTNESS OF BREATH Albuterol/Ipratropium (Duoneb -) 1 amp NEB RQID [facility] Last Admin: 11/13/19 07:11 Dose: 1 amp Amlodipine Besylate (Norvasc -) 5 mg PO DAILY [facility] Last Admin: 11/13/19 10:05 Dose: 5 mg Atorvastatin Calcium (Lipitor -) 80 mg PO HS [facility] Last Admin: 11/12/19 21:41 Dose: 80 mg Azithromycin (Zithromax -) 250 mg PO DAILY [facility] Last Admin: 11/13/19 11:02 Dose: 250 mg Chlorhexidine Gluconate (Hibiclens For Decolonization -) 1 applic TP HS [facility] Last Admin: 11/12/19 21:44 Dose: 1 applic Clonazepam (Klonopin -) 0.5 mg PO BID [facility] Last Admin: 11/13/19 10:05 Dose: 0.5 mg Clopidogrel Bisulfate (Plavix -) 75 mg PO DAILY [facility] Last Admin: 11/13/19 10:06 Dose: 75 mg Enoxaparin Sodium (Lovenox -) 40 mg SQ DAILY [facility] Last Admin: 11/13/19 10:02 Dose: 40 mg Lactobacillus Acidophilus (Bacid -) 1 tab PO BID [facility] Last Admin: 11/13/19 10:05 Dose: 1 tab Losartan Potassium (Cozaar -) 100 mg PO DAILY [facility] Last Admin: 11/13/19 10:04 Dose: 100 mg Methylprednisolone Sodium Succinate (Solu-Medrol -) 80 mg IVPUSH Q8H-IV [facility] Last Admin: 11/13/19 10:07 Dose: 80 mg Mupirocin (Bactroban Ointment (For Decolonization) -) 1 applic NS BID [facility] Stop: 11/13/19 21:59 Last Admin: 11/12/19 21:44 Dose: 1 applic Nystatin (Nystatin Oral Suspension -) 500,000 units PO Q6HPO [facility] Last Admin: 11/13/19 06:26 Dose: 500,000 units Pantoprazole Sodium (Protonix -) 20 mg PO DAILY [facility] Last Admin: 11/13/19 10:06 Dose: 20 mg Roflumilast (Daliresp) 500 mcg PO DAILY [facility] Varenicline (Chantix -) 0.5 mg PO BID [facility] A/P Acute on Chronic Hypoxic and Hypercapneic Respiratory Failure Acute COPD Exacerbation Acute Bronchitis CAD AAA h/o Bladder Ca HTN Smoker - continue medrol - inhaled bronchodilators standing and PRN - O2 to keep Spo2 >90% - BiPAP at night and PRN during day - on antibiotics - DVT prophylaxis - low dose anxiolytic - smoking cessation Problem List - Problems (1) Acute on chronic respiratory failure with hypoxia and hypercapnia Code(s): J96.21 - ACUTE AND CHRONIC RESPIRATORY FAILURE WITH HYPOXIA; J96.22 - ACUTE AND CHRONIC RESPIRATORY FAILURE WITH HYPERCAPNIA (2) COPD exacerbation Code(s): J44.1 - CHRONIC OBSTRUCTIVE PULMONARY DISEASE W (ACUTE) EXACERBATION
[2019-11-13] MEDS: MUPIROCIN 2% TOPICAL OINTMENT FOR DECOLONIZATION NS SCH (14:43)
[2019-11-13] MEDS: VARENICLINE TARTRATE 0.5 MG TAB PO SCH (22:19)
[2019-11-13] MEDS: CHLORHEXIDINE GLUCONATE 4% CLEANSER FOR DECOLONIZATION TP SCH (22:19)
[2019-11-13] MEDS: ATORVASTATIN CA 80 MG TABLET (FP) PO SCH (22:19)
[2019-11-14] MEDS: NYSTATIN 500,000 UNITS/5 ML SUSPENSION PO SCH ×4 (00:55→17:24)
[2019-11-14] MEDS: ALBUTEROL SO4 2.5/IPRATROPIUM 0.5 INH SOL 3 ML VIAL.NEB. NEB SCH ×4 (07:25→21:30)
--- NOTE | 2019-11-14 08:09 | PN ---
Progress Note, Physician Chief Complaint: AWAKE ALERT STARTED CHANTIX YESTERDAY FEELS BETTER TODAY - Current Medication List Current Medications: Active Medications Albuterol Sulfate (Ventolin 0.083% Nebulizer Soln -) 1 amp NEB Q3H PRN PRN Reason: SHORTNESS OF BREATH Albuterol/Ipratropium (Duoneb -) 1 amp NEB RQID [facility] Last Admin: 11/13/19 21:24 Dose: 1 amp Amlodipine Besylate (Norvasc -) 5 mg PO DAILY [facility] Last Admin: 11/13/19 10:05 Dose: 5 mg Atorvastatin Calcium (Lipitor -) 80 mg PO HS [facility] Last Admin: 11/13/19 22:19 Dose: 80 mg Azithromycin (Zithromax -) 250 mg PO DAILY [facility] Last Admin: 11/13/19 11:02 Dose: 250 mg Chlorhexidine Gluconate (Hibiclens For Decolonization -) 1 applic TP HS [facility] Last Admin: 11/13/19 22:19 Dose: 1 applic Clonazepam (Klonopin -) 0.5 mg PO BID [facility] Last Admin: 11/13/19 22:19 Dose: 0.5 mg Clopidogrel Bisulfate (Plavix -) 75 mg PO DAILY [facility] Last Admin: 11/13/19 10:06 Dose: 75 mg Enoxaparin Sodium (Lovenox -) 40 mg SQ DAILY [facility] Last Admin: 11/13/19 10:02 Dose: 40 mg Lactobacillus Acidophilus (Bacid -) 1 tab PO BID [facility] Last Admin: 11/13/19 22:19 Dose: 1 tab Losartan Potassium (Cozaar -) 100 mg PO DAILY [facility] Last Admin: 11/13/19 10:04 Dose: 100 mg Methylprednisolone Sodium Succinate (Solu-Medrol -) 80 mg IVPUSH Q8H-IV [facility] Last Admin: 11/13/19 17:49 Dose: 80 mg Nystatin (Nystatin Oral Suspension -) 500,000 units PO Q6HPO [facility] Last Admin: 11/14/19 05:16 Dose: 500,000 units Pantoprazole Sodium (Protonix -) 20 mg PO DAILY [facility] Last Admin: 11/13/19 10:06 Dose: 20 mg Roflumilast (Daliresp) 500 mcg PO DAILY [facility] Varenicline (Chantix -) 0.5 mg PO BID [facility] Last Admin: 11/13/19 22:19 Dose: 0.5 mg - Objective Vital Signs: Vital Signs Temperature 98.1 F 11/14/19 06:00 Pulse Rate 58 L 11/14/19 06:00 Respiratory Rate 23 H 11/14/19 06:00 Blood Pressure 139/55 L 11/14/19 06:00 O2 Sat by Pulse Oximetry (%) 96 11/14/19 05:00 Constitutional: Yes: Mild Distress Cardiovascular: Yes: Pulse Irregular Respiratory: Yes: Diminished, On BiPap, On Nasal O2 Genitourinary: Yes: WNL Musculoskeletal: Yes: Muscle Weakness Edema: No Wound/Incision: Yes: Clean/Dry Neurological: Yes: Other Psychiatric: Yes: Other Labs: CBC, BMP 11/13/19 06:05 11/13/19 06:05 Problem List - Problems (1) COPD exacerbation Code(s): J44.1 - CHRONIC OBSTRUCTIVE PULMONARY DISEASE W (ACUTE) EXACERBATION (2) ASHD (arteriosclerotic heart disease) Code(s): I25.10 - ATHSCL HEART DISEASE OF [place] CORONARY ARTERY W/O ANG PCTRS (3) Acute on chronic respiratory failure with hypercapnia Code(s): J96.22 - ACUTE AND CHRONIC RESPIRATORY FAILURE WITH HYPERCAPNIA (4) Anxiety Code(s): F41.9 - ANXIETY DISORDER, UNSPECIFIED (5) Bladder cancer Code(s): C67.9 - MALIGNANT NEOPLASM OF BLADDER, UNSPECIFIED (6) Dyspnea Code(s): R06.00 - DYSPNEA, UNSPECIFIED (7) Thoracic aortic aneurysm Code(s): I71.2 - THORACIC AORTIC ANEURYSM, WITHOUT RUPTURE (8) Tobacco abuse Code(s): Z72.0 - TOBACCO USE Assessment/Plan PLAN IS TO CONTINUE IV STEROIDS AND TAPER OFF SLOWLY PO AZITHROMYCIN BIPAP/02 NC FOR RESPIRATORY SUPPORT AWAIT DISPOSITION TO SNF FOR PULM REHAB OOB TO CHAIR PT EVAL NICOTINE PATCH DISCONTINUED NOW ON CHANTIX DISCUSSED WITH DR ROSS ON ELIQUIS CONTINUE
[2019-11-14] MEDS ORDERED: PT OWN MED DRAWER 7, Y5N ONE ×2 (09:40→21:10)
[2019-11-14] MEDS: PANTOPRAZOLE 20 MG TABLET PO SCH (09:40)
[2019-11-14] MEDS: ENOXAPARIN NA (PORCINE) 40 MG/0.4 ML DISP.SYRIN SQ SCH (09:41)
[2019-11-14] MEDS: clonazePAM 0.5 MG TABLET PO SCH ×2 (09:41→21:13)
[2019-11-14] MEDS: amLODIPine BESYLATE 5 MG TABLET (FP) PO SCH (09:41)
[2019-11-14] MEDS: LACTOBACILLUS ACIDOPHILUS 1 TABLET PO SCH ×2 (09:41→21:13)
[2019-11-14] MEDS: LOSARTAN POTASSIUM 50 MG TABLET (FP) PO SCH (09:42)
[2019-11-14] MEDS: VARENICLINE TARTRATE 0.5 MG TAB PO SCH ×2 (09:43→21:48)
[2019-11-14] MEDS: AZITHROMYCIN 250 MG TABLET PO SCH (09:43)
[2019-11-14] MEDS: methylPREDNISolone NA SUCC 125 MG/2 ML VIAL IVPUSH SCH ×2 (09:44→17:24)
[2019-11-14] MEDS: CLOPIDOGREL BISULFATE 75 MG TABLET (FP) PO SCH (09:44)
--- NOTE | 2019-11-14 10:54 | PN ---
Progress Note, Physician Chief Complaint: sob History of Present Illness: sob stable vs yest anxious today about dispo plan no cp, palp, swelling - Current Medication List Current Medications: Active Medications Albuterol Sulfate (Ventolin 0.083% Nebulizer Soln -) 1 amp NEB Q3H PRN PRN Reason: SHORTNESS OF BREATH Albuterol/Ipratropium (Duoneb -) 1 amp NEB RQID [facility] Last Admin: 11/14/19 07:25 Dose: 1 amp Amlodipine Besylate (Norvasc -) 5 mg PO DAILY [facility] Last Admin: 11/14/19 09:41 Dose: 5 mg Atorvastatin Calcium (Lipitor -) 80 mg PO HS [facility] Last Admin: 11/13/19 22:19 Dose: 80 mg Azithromycin (Zithromax -) 250 mg PO DAILY [facility] Last Admin: 11/14/19 09:43 Dose: 250 mg Chlorhexidine Gluconate (Hibiclens For Decolonization -) 1 applic TP HS [facility] Last Admin: 11/13/19 22:19 Dose: 1 applic Clonazepam (Klonopin -) 0.5 mg PO BID [facility] Last Admin: 11/14/19 09:41 Dose: 0.5 mg Clopidogrel Bisulfate (Plavix -) 75 mg PO DAILY [facility] Last Admin: 11/14/19 09:44 Dose: 75 mg Enoxaparin Sodium (Lovenox -) 40 mg SQ DAILY [facility] Last Admin: 11/14/19 09:41 Dose: 40 mg Lactobacillus Acidophilus (Bacid -) 1 tab PO BID [facility] Last Admin: 11/14/19 09:41 Dose: 1 tab Losartan Potassium (Cozaar -) 100 mg PO DAILY [facility] Last Admin: 11/14/19 09:42 Dose: 100 mg Methylprednisolone Sodium Succinate (Solu-Medrol -) 80 mg IVPUSH Q8H-IV [facility] Last Admin: 11/14/19 09:44 Dose: 80 mg Nystatin (Nystatin Oral Suspension -) 500,000 units PO Q6HPO [facility] Last Admin: 11/14/19 05:16 Dose: 500,000 units Pantoprazole Sodium (Protonix -) 20 mg PO DAILY [facility] Last Admin: 11/14/19 09:40 Dose: 20 mg Roflumilast (Daliresp) 500 mcg PO DAILY [facility] Varenicline (Chantix -) 0.5 mg PO BID [facility] Last Admin: 11/14/19 09:43 Dose: 0.5 mg - Objective Vital Signs: Vital Signs Temperature 98.1 F 11/14/19 06:00 Pulse Rate 58 L 11/14/19 06:00 Respiratory Rate 23 H 11/14/19 06:00 Blood Pressure 139/55 L 11/14/19 06:00 O2 Sat by Pulse Oximetry (%) 96 11/14/19 08:12 Constitutional: Yes: Well Nourished, No Distress, Calm Cardiovascular: Yes: Regular Rate and Rhythm, S1, S2. No: Gallop, Murmur Respiratory: Yes: Regular, Wheezes (faint). No: Accessory Muscle Use, Rales Extremities: No: Cold Edema: No Neurological: Yes: Alert, Oriented Psychiatric: No: Agitated Labs: CBC, BMP 11/13/19 06:05 11/13/19 06:05 Assessment/Plan Echo 04/2019- Normal LVEF. E:A reversal c/w early diastolic dysfx, RV not well seen. tele: NSR with sinus tach, APCs IMP/PLAN: Acute respiratory failure: secondary to acute on chronic advanced COPD -NIPPV as per critical care -Steroids, BDs per pulm -PPI Chronic CAD, remote pci, w/o angina: -mult prior stents (prox and mid LAD, entire RCA and RPDA) all patent on cath 2013 -no angina (chronic sob with chest pressure is copd sx--present prior to cath and unchanged since) -no signs acs -cont plavix, statin, arb Chronic diast chf: -borderline depressed LVEF (45% on v-gram, 50% echo 2015) with moderately incr' d LVEDP at cath (24) -never clinical chf, no sob response to trial of lasix in past -BNP has always been elevated and near 1000 range. -appears euvolemic, CXR no congestion -no diuretics at this point HTN: -known bp lability from anxiety at times -stable, cont home meds HPL: -cont home statin +cigs: -previously counselled on cessation many times, not interested in quitting -presently scared of from copd, willing to try but pessimistic re: chances for success. failed patch in past. -trial of chantix underway, will try to arrange copay reduction/financial assistance via company as outpt Descending thoracic aortic aneurysm: -3.[address] chest 04/2019 -cont bp control -outpatient follow up for monitoring
--- NOTE | 2019-11-14 13:02 | PN ---
Progress Note (short form) - Note Progress Note: PULMONARY Breathing better today. Less chest tightness. Anxious about discharge plan. Vital Signs Period Temp Pulse Resp BP Sys/Lock Pulse Ox Last 24 Hr 97.7 F-98.1 F 57-88 18-26 134-154/51-87 90-97 Gen: less tachypneic at rest Heart: irregular Lung: distant breath sounds Abd: soft, nontender Ext: no edema CBC, BMP 11/13/19 06:05 11/13/19 06:05 Active Medications Albuterol Sulfate (Ventolin 0.083% Nebulizer Soln -) 1 amp NEB Q3H PRN PRN Reason: SHORTNESS OF BREATH Albuterol/Ipratropium (Duoneb -) 1 amp NEB RQID [facility] Last Admin: 11/14/19 11:48 Dose: 1 amp Amlodipine Besylate (Norvasc -) 5 mg PO DAILY [facility] Last Admin: 11/14/19 09:41 Dose: 5 mg Atorvastatin Calcium (Lipitor -) 80 mg PO HS [facility] Last Admin: 11/13/19 22:19 Dose: 80 mg Azithromycin (Zithromax -) 250 mg PO DAILY [facility] Last Admin: 11/14/19 09:43 Dose: 250 mg Chlorhexidine Gluconate (Hibiclens For Decolonization -) 1 applic TP HS [facility] Last Admin: 11/13/19 22:19 Dose: 1 applic Clonazepam (Klonopin -) 0.5 mg PO BID [facility] Last Admin: 11/14/19 09:41 Dose: 0.5 mg Clopidogrel Bisulfate (Plavix -) 75 mg PO DAILY [facility] Last Admin: 11/14/19 09:44 Dose: 75 mg Enoxaparin Sodium (Lovenox -) 40 mg SQ DAILY [facility] Last Admin: 11/14/19 09:41 Dose: 40 mg Lactobacillus Acidophilus (Bacid -) 1 tab PO BID [facility] Last Admin: 11/14/19 09:41 Dose: 1 tab Losartan Potassium (Cozaar -) 100 mg PO DAILY [facility] Last Admin: 11/14/19 09:42 Dose: 100 mg Methylprednisolone Sodium Succinate (Solu-Medrol -) 80 mg IVPUSH Q8H-IV [facility] Last Admin: 11/14/19 09:44 Dose: 80 mg Nystatin (Nystatin Oral Suspension -) 500,000 units PO Q6HPO [facility] Last Admin: 11/14/19 11:55 Dose: 500,000 units Pantoprazole Sodium (Protonix -) 20 mg PO DAILY [facility] Last Admin: 11/14/19 09:40 Dose: 20 mg Roflumilast (Daliresp) 500 mcg PO DAILY [facility] Varenicline (Chantix -) 0.5 mg PO BID [facility] Last Admin: 11/14/19 09:43 Dose: 0.5 mg A/P Acute on Chronic Hypoxic and Hypercapneic Respiratory Failure Acute COPD Exacerbation Acute Bronchitis CAD AAA h/o Bladder Ca HTN Smoker - continue medrol, will decrease dose to 60mg q8h - inhaled bronchodilators standing and PRN - O2 to keep Spo2 >90% - BiPAP at night and PRN during day - on antibiotics - DVT prophylaxis - low dose anxiolytic - smoking cessation Problem List - Problems (1) Acute on chronic respiratory failure with hypoxia and hypercapnia Code(s): J96.21 - ACUTE AND CHRONIC RESPIRATORY FAILURE WITH HYPOXIA; J96.22 - ACUTE AND CHRONIC RESPIRATORY FAILURE WITH HYPERCAPNIA (2) COPD exacerbation Code(s): J44.1 - CHRONIC OBSTRUCTIVE PULMONARY DISEASE W (ACUTE) EXACERBATION
[2019-11-14 16:00] VITALS: BMI 18.7
[2019-11-14] MEDS: CHLORHEXIDINE GLUCONATE 4% CLEANSER FOR DECOLONIZATION TP SCH (21:13)
[2019-11-14] MEDS: ATORVASTATIN CA 80 MG TABLET (FP) PO SCH (21:13)
[2019-11-15] MEDS: NYSTATIN 500,000 UNITS/5 ML SUSPENSION PO SCH ×4 (00:30→17:44)
[2019-11-15] MEDS: methylPREDNISolone NA SUCC 125 MG/2 ML VIAL IVPUSH SCH ×2 (02:28→10:21)
[2019-11-15] MEDS: ALBUTEROL SO4 2.5/IPRATROPIUM 0.5 INH SOL 3 ML VIAL.NEB. NEB SCH ×4 (07:25→20:50)
--- NOTE | 2019-11-15 08:19 | PN ---
Progress Note, Physician Chief Complaint: ASLEEP COMFORTABLE ON BIPAP AT NIGHT CONVERTING TO 02NC DAYTIME - Current Medication List Current Medications: Active Medications Albuterol Sulfate (Ventolin 0.083% Nebulizer Soln -) 1 amp NEB Q3H PRN PRN Reason: SHORTNESS OF BREATH Albuterol/Ipratropium (Duoneb -) 1 amp NEB RQID [facility] Last Admin: 11/14/19 21:30 Dose: 1 amp Amlodipine Besylate (Norvasc -) 5 mg PO DAILY [facility] Last Admin: 11/14/19 09:41 Dose: 5 mg Atorvastatin Calcium (Lipitor -) 80 mg PO HS [facility] Last Admin: 11/14/19 21:13 Dose: 80 mg Azithromycin (Zithromax -) 250 mg PO DAILY [facility] Last Admin: 11/14/19 09:43 Dose: 250 mg Chlorhexidine Gluconate (Hibiclens For Decolonization -) 1 applic TP HS [facility] Last Admin: 11/14/19 21:13 Dose: 1 applic Clonazepam (Klonopin -) 0.5 mg PO BID [facility] Last Admin: 11/14/19 21:13 Dose: 0.5 mg Clopidogrel Bisulfate (Plavix -) 75 mg PO DAILY [facility] Last Admin: 11/14/19 09:44 Dose: 75 mg Enoxaparin Sodium (Lovenox -) 40 mg SQ DAILY [facility] Last Admin: 11/14/19 09:41 Dose: 40 mg Lactobacillus Acidophilus (Bacid -) 1 tab PO BID [facility] Last Admin: 11/14/19 21:13 Dose: 1 tab Losartan Potassium (Cozaar -) 100 mg PO DAILY [facility] Last Admin: 11/14/19 09:42 Dose: 100 mg Methylprednisolone Sodium Succinate (Solu-Medrol -) 80 mg IVPUSH Q8H-IV [facility] Last Admin: 11/15/19 02:28 Dose: 80 mg Nystatin (Nystatin Oral Suspension -) 500,000 units PO Q6HPO [facility] Last Admin: 11/15/19 05:54 Dose: 500,000 units Pantoprazole Sodium (Protonix -) 20 mg PO DAILY [facility] Last Admin: 11/14/19 09:40 Dose: 20 mg Roflumilast (Daliresp) 500 mcg PO DAILY [facility] Varenicline (Chantix -) 0.5 mg PO BID [facility] Last Admin: 11/14/19 21:48 Dose: 0.5 mg - Objective Vital Signs: Vital Signs Temperature 98.4 F 11/15/19 06:00 Pulse Rate 56 L 11/15/19 06:00 Respiratory Rate 22 H 11/15/19 06:00 Blood Pressure 159/66 11/15/19 06:00 O2 Sat by Pulse Oximetry (%) 97 11/14/19 21:00 Constitutional: Yes: Mild Distress Cardiovascular: Yes: Pulse Irregular Respiratory: Yes: Diminished, On Nasal O2 Genitourinary: Yes: WNL Musculoskeletal: Yes: Muscle Weakness Integumentary: Yes: WNL Wound/Incision: Yes: Clean/Dry Neurological: Yes: Pre-Existing Deficit ...Motor Strength: LLE, RLE Psychiatric: Yes: Other Labs: CBC, BMP 11/13/19 06:05 11/13/19 06:05 Problem List - Problems (1) COPD exacerbation Code(s): J44.1 - CHRONIC OBSTRUCTIVE PULMONARY DISEASE W (ACUTE) EXACERBATION (2) ASHD (arteriosclerotic heart disease) Code(s): I25.10 - ATHSCL HEART DISEASE OF [place] CORONARY ARTERY W/O ANG PCTRS (3) Acute on chronic respiratory failure with hypercapnia Code(s): J96.22 - ACUTE AND CHRONIC RESPIRATORY FAILURE WITH HYPERCAPNIA (4) Anxiety Code(s): F41.9 - ANXIETY DISORDER, UNSPECIFIED (5) Bladder cancer Code(s): C67.9 - MALIGNANT NEOPLASM OF BLADDER, UNSPECIFIED (6) Dyspnea Code(s): R06.00 - DYSPNEA, UNSPECIFIED (7) Thoracic aortic aneurysm Code(s): I71.2 - THORACIC AORTIC ANEURYSM, WITHOUT RUPTURE (8) Tobacco abuse Code(s): Z72.0 - TOBACCO USE Assessment/Plan PLAN IS TO CONTINUE IV STEROIDS AND TAPER OFF SLOWLY PO AZITHROMYCIN BIP/ [place] FOR RESPIRATORY SUPPORT AWAIT DISPOSITION TO SNF FOR PULM REHAB OOB TO CHAIR PT EVAL NICOTINE PATCH DISCONTINUED NOW ON CHANTIX DISCUSSED WITH DR ROSS ON ELIQUIS CONTINUE
[2019-11-15] MEDS: LACTOBACILLUS ACIDOPHILUS 1 TABLET PO SCH ×2 (10:10→21:46)
[2019-11-15] MEDS: amLODIPine BESYLATE 5 MG TABLET (FP) PO SCH (10:10)
[2019-11-15] MEDS: PANTOPRAZOLE 20 MG TABLET PO SCH (10:10)
[2019-11-15] MEDS: CLOPIDOGREL BISULFATE 75 MG TABLET (FP) PO SCH (10:10)
[2019-11-15] MEDS: clonazePAM 0.5 MG TABLET PO SCH ×2 (10:10→21:46)
[2019-11-15] MEDS: LOSARTAN POTASSIUM 50 MG TABLET (FP) PO SCH (10:11)
[2019-11-15] MEDS: ENOXAPARIN NA (PORCINE) 40 MG/0.4 ML DISP.SYRIN SQ SCH (10:11)
[2019-11-15] MEDS: AZITHROMYCIN 250 MG TABLET PO SCH (10:15)
[2019-11-15] MEDS: VARENICLINE TARTRATE 0.5 MG TAB PO SCH ×2 (10:15→21:46)
--- NOTE | 2019-11-15 11:34 | PN ---
Progress Note (short form) - Note Progress Note: s: stable dyspnea, no chest pain, palps, dizziness Current Medications Albuterol Sulfate (Ventolin 0.083% Nebulizer Soln -) 1 amp NEB Q3H PRN PRN Reason: SHORTNESS OF BREATH Albuterol/Ipratropium (Duoneb -) 1 amp NEB RQID [facility] Last Admin: 11/15/19 07:25 Dose: 1 amp Amlodipine Besylate (Norvasc -) 5 mg PO DAILY [facility] Last Admin: 11/15/19 10:10 Dose: 5 mg Atorvastatin Calcium (Lipitor -) 80 mg PO HS [facility] Last Admin: 11/14/19 21:13 Dose: 80 mg Azithromycin (Zithromax -) 250 mg PO DAILY [facility] Last Admin: 11/15/19 10:15 Dose: 250 mg Chlorhexidine Gluconate (Hibiclens For Decolonization -) 1 applic TP HS [facility] Last Admin: 11/14/19 21:13 Dose: 1 applic Clonazepam (Klonopin -) 0.5 mg PO BID [facility] Last Admin: 11/15/19 10:10 Dose: 0.5 mg Clopidogrel Bisulfate (Plavix -) 75 mg PO DAILY [facility] Last Admin: 11/15/19 10:10 Dose: 75 mg Enoxaparin Sodium (Lovenox -) 40 mg SQ DAILY [facility] Last Admin: 11/15/19 10:11 Dose: 40 mg Lactobacillus Acidophilus (Bacid -) 1 tab PO BID [facility] Last Admin: 11/15/19 10:10 Dose: 1 tab Losartan Potassium (Cozaar -) 100 mg PO DAILY [facility] Last Admin: 11/15/19 10:11 Dose: 100 mg Methylprednisolone Sodium Succinate (Solu-Medrol -) 80 mg IVPUSH Q8H-IV [facility] Last Admin: 11/15/19 10:21 Dose: 80 mg Nystatin (Nystatin Oral Suspension -) 500,000 units PO Q6HPO [facility] Last Admin: 11/15/19 05:54 Dose: 500,000 units Pantoprazole Sodium (Protonix -) 20 mg PO DAILY [facility] Last Admin: 11/15/19 10:10 Dose: 20 mg Roflumilast (Daliresp) 500 mcg PO DAILY [facility] Varenicline (Chantix -) 0.5 mg PO BID [facility] Last Admin: 11/15/19 10:15 Dose: 0.5 mg Vital Signs Period Temp Pulse Resp BP Sys/Lock Pulse Ox Last 24 Hr 97.8 F-98.4 F 56-102 22-25 138-159/57-72 96-99 Constitutional: Yes: Well Nourished, No Distress, Calm Cardiovascular: Yes: Regular Rate and Rhythm, S1, S2. No: Gallop, Murmur Respiratory: Yes: Regular, Wheezes (faint). No: Accessory Muscle Use, Rales Extremities: No: Cold Edema: No Neurological: Yes: Alert, Oriented Psychiatric: No: Agitated no jaundice, diaphoresis Assessment/Plan Echo 04/2019- Normal LVEF. E:A reversal c/w early diastolic dysfx, RV not well seen. tele: NSR with sinus tach, APCs IMP/PLAN: Acute respiratory failure: secondary to acute on chronic advanced COPD -NIPPV as per critical care -Steroids, BDs per pulm -PPI Chronic CAD, remote pci, w/o angina: -mult prior stents (prox and mid LAD, entire RCA and RPDA) all patent on cath 2013 -no angina (chronic sob with chest pressure is copd sx--present prior to cath and unchanged since) -no signs acs -cont plavix, statin, arb Chronic diast chf: -borderline depressed LVEF (45% on v-gram, 50% echo 2015) with moderately incr' d LVEDP at cath (24) -never clinical chf, no sob response to trial of lasix in past -BNP has always been elevated and near 1000 range. -appears euvolemic, CXR no congestion -no diuretics at this point HTN: -known bp lability from anxiety at times -stable, cont home meds HPL: -cont home statin +cigs: -previously counselled on cessation many times, not interested in quitting -presently scared of from copd, willing to try but pessimistic re: chances for success. failed patch in past. -trial of chantix underway, per Dr. Encinas will try to arrange copay reduction/ financial assistance via company as outpt Descending thoracic aortic aneurysm: -3.[address] chest 04/2019 -cont bp control -outpatient follow up for monitoring
--- NOTE | 2019-11-15 13:31 | PN ---
Progress Note (short form) - Note Progress Note: PULMONARY Breathing better today. Less chest tightness. Used BiPAP overnight. Vital Signs Period Temp Pulse Resp BP Sys/Lock Pulse Ox Last 24 Hr 97.8 F-98.4 F 56-102 22-25 138-159/57-72 96-99 Gen: less tachypneic at rest Heart: irregular Lung: distant breath sounds Abd: soft, nontender Ext: no edema CBC, BMP 11/13/19 06:05 11/13/19 06:05 Active Medications Albuterol Sulfate (Ventolin 0.083% Nebulizer Soln -) 1 amp NEB Q3H PRN PRN Reason: SHORTNESS OF BREATH Albuterol/Ipratropium (Duoneb -) 1 amp NEB RQID [facility] Last Admin: 11/15/19 11:25 Dose: 1 amp Amlodipine Besylate (Norvasc -) 5 mg PO DAILY [facility] Last Admin: 11/15/19 10:10 Dose: 5 mg Atorvastatin Calcium (Lipitor -) 80 mg PO HS [facility] Last Admin: 11/14/19 21:13 Dose: 80 mg Azithromycin (Zithromax -) 250 mg PO DAILY [facility] Last Admin: 11/15/19 10:15 Dose: 250 mg Chlorhexidine Gluconate (Hibiclens For Decolonization -) 1 applic TP HS [facility] Last Admin: 11/14/19 21:13 Dose: 1 applic Clonazepam (Klonopin -) 0.5 mg PO BID [facility] Last Admin: 11/15/19 10:10 Dose: 0.5 mg Clopidogrel Bisulfate (Plavix -) 75 mg PO DAILY [facility] Last Admin: 11/15/19 10:10 Dose: 75 mg Enoxaparin Sodium (Lovenox -) 40 mg SQ DAILY [facility] Last Admin: 11/15/19 10:11 Dose: 40 mg Lactobacillus Acidophilus (Bacid -) 1 tab PO BID [facility] Last Admin: 11/15/19 10:10 Dose: 1 tab Losartan Potassium (Cozaar -) 100 mg PO DAILY [facility] Last Admin: 11/15/19 10:11 Dose: 100 mg Methylprednisolone Sodium Succinate (Solu-Medrol -) 80 mg IVPUSH Q8H-IV [facility] Last Admin: 11/15/19 10:21 Dose: 80 mg Nystatin (Nystatin Oral Suspension -) 500,000 units PO Q6HPO [facility] Last Admin: 11/15/19 05:54 Dose: 500,000 units Pantoprazole Sodium (Protonix -) 20 mg PO DAILY [facility] Last Admin: 11/15/19 10:10 Dose: 20 mg Roflumilast (Daliresp) 500 mcg PO DAILY [facility] Varenicline (Chantix -) 0.5 mg PO BID [facility] Last Admin: 11/15/19 10:15 Dose: 0.5 mg A/P Acute on Chronic Hypoxic and Hypercapneic Respiratory Failure Acute COPD Exacerbation Acute Bronchitis CAD AAA h/o Bladder Ca HTN Smoker - continue medrol, will decrease dose to 40mg q8h - inhaled bronchodilators standing and PRN - O2 to keep Spo2 >90% - BiPAP at night and PRN during day - on antibiotics - DVT prophylaxis - low dose anxiolytic - smoking cessation Problem List - Problems (1) Acute on chronic respiratory failure with hypoxia and hypercapnia Code(s): J96.21 - ACUTE AND CHRONIC RESPIRATORY FAILURE WITH HYPOXIA; J96.22 - ACUTE AND CHRONIC RESPIRATORY FAILURE WITH HYPERCAPNIA (2) COPD exacerbation Code(s): J44.1 - CHRONIC OBSTRUCTIVE PULMONARY DISEASE W (ACUTE) EXACERBATION
[2019-11-15] MEDS ORDERED: PT OWN MED DRAWER 7, Y5N ONE (13:38)
[2019-11-15] MEDS: methylPREDNISolone NA SUCC 40 MG/1 ML VIAL IVPUSH SCH (17:44)
[2019-11-15] MEDS: ROFLUMILAST 500 MCG TABLET PO SCH (20:05)
[2019-11-15] MEDS: ATORVASTATIN CA 80 MG TABLET (FP) PO SCH (21:46)
[2019-11-15] MEDS: CHLORHEXIDINE GLUCONATE 4% CLEANSER FOR DECOLONIZATION TP SCH (21:46)
[2019-11-16] MEDS: NYSTATIN 500,000 UNITS/5 ML SUSPENSION PO SCH ×4 (00:26→18:37)
[2019-11-16] MEDS: methylPREDNISolone NA SUCC 40 MG/1 ML VIAL IVPUSH SCH ×3 (01:03→18:37)
[2019-11-16 06:54] LABS: BLOOD UREA NITROGEN 35.5 mg/dL (7-18); CALCIUM 8.6 mg/dL (8.5-10.1); CREATININE 0.8 mg/dL (0.55-1.3); MAGNESIUM 2.3 mg/dL (1.8-2.4); POTASSIUM 4.1 mmol/L (3.5-5.1)
[2019-11-16] MEDS: ALBUTEROL SO4 2.5/IPRATROPIUM 0.5 INH SOL 3 ML VIAL.NEB. NEB SCH ×4 (08:00→20:12)
[2019-11-16] MEDS ORDERED: PT OWN MED DRAWER 7, Y5N ONE (08:54)
[2019-11-16] MEDS: LACTOBACILLUS ACIDOPHILUS 1 TABLET PO SCH ×2 (09:01→22:24)
[2019-11-16] MEDS: VARENICLINE TARTRATE 0.5 MG TAB PO SCH ×2 (09:02→22:57)
[2019-11-16] MEDS: LOSARTAN POTASSIUM 50 MG TABLET (FP) PO SCH (09:03)
[2019-11-16] MEDS: ENOXAPARIN NA (PORCINE) 40 MG/0.4 ML DISP.SYRIN SQ SCH (09:04)
[2019-11-16] MEDS: clonazePAM 0.5 MG TABLET PO SCH ×2 (09:04→22:24)
[2019-11-16] MEDS: ROFLUMILAST 500 MCG TABLET PO SCH (09:04)
[2019-11-16] MEDS: CLOPIDOGREL BISULFATE 75 MG TABLET (FP) PO SCH (09:05)
[2019-11-16] MEDS: amLODIPine BESYLATE 5 MG TABLET (FP) PO SCH (09:05)
[2019-11-16] MEDS: PANTOPRAZOLE 20 MG TABLET PO SCH (09:06)
[2019-11-16] MEDS: AZITHROMYCIN 250 MG TABLET PO SCH (09:06)
--- NOTE | 2019-11-16 11:03 | PN ---
Progress Note, Physician Chief Complaint: ASLEEP COMFORTABLE NO EVENTS OVERNIGHT - Current Medication List Current Medications: Active Medications Albuterol Sulfate (Ventolin 0.083% Nebulizer Soln -) 1 amp NEB Q3H PRN PRN Reason: SHORTNESS OF BREATH Albuterol/Ipratropium (Duoneb -) 1 amp NEB RQID [facility] Last Admin: 11/16/19 08:00 Dose: 1 amp Amlodipine Besylate (Norvasc -) 5 mg PO DAILY [facility] Last Admin: 11/16/19 09:05 Dose: 5 mg Atorvastatin Calcium (Lipitor -) 80 mg PO HS [facility] Last Admin: 11/15/19 21:46 Dose: 80 mg Azithromycin (Zithromax -) 250 mg PO DAILY [facility] Last Admin: 11/16/19 09:06 Dose: 250 mg Chlorhexidine Gluconate (Hibiclens For Decolonization -) 1 applic TP [facility] Last Admin: 11/15/19 21:46 Dose: 1 applic Clonazepam (Klonopin -) 0.5 mg PO BID [facility] Last Admin: 11/16/19 09:04 Dose: 0.5 mg Clopidogrel Bisulfate (Plavix -) 75 mg PO DAILY [facility] Last Admin: 11/16/19 09:05 Dose: 75 mg Enoxaparin Sodium (Lovenox -) 40 mg SQ DAILY [facility] Last Admin: 11/16/19 09:04 Dose: 40 mg Lactobacillus Acidophilus (Bacid -) 1 tab PO BID [facility] Last Admin: 11/16/19 09:01 Dose: 1 tab Losartan Potassium (Cozaar -) 100 mg PO DAILY [facility] Last Admin: 11/16/19 09:03 Dose: 100 mg Methylprednisolone Sodium Succinate (Solu-Medrol -) 40 mg IVPUSH Q8H-IV [facility] Last Admin: 11/16/19 09:06 Dose: 40 mg Nystatin (Nystatin Oral Suspension -) 500,000 units PO Q6HPO [facility] Last Admin: 11/16/19 06:25 Dose: 500,000 units Pantoprazole Sodium (Protonix -) 20 mg PO DAILY [facility] Last Admin: 11/16/19 09:06 Dose: 20 mg Roflumilast (Daliresp) 500 mcg PO DAILY [facility] Last Admin: 11/16/19 09:04 Dose: 500 mcg Varenicline (Chantix -) 0.5 mg PO BID [facility] Last Admin: 02/05/20 09:02 Dose: 0.5 mg - Objective Vital Signs: Vital Signs Temperature 97.6 F 11/16/19 08:58 Pulse Rate 83 11/16/19 08:58 Respiratory Rate 22 H 11/16/19 08:58 Blood Pressure 177/57 H 11/16/19 08:58 O2 Sat by Pulse Oximetry (%) 98 11/16/19 09:04 Constitutional: Yes: Mild Distress Cardiovascular: Yes: Pulse Irregular Respiratory: Yes: Diminished Genitourinary: Yes: WNL Musculoskeletal: Yes: Muscle Weakness Labs: CBC, BMP 11/13/19 06:05 11/16/19 05:53 Problem List - Problems (1) COPD exacerbation Code(s): J44.1 - CHRONIC OBSTRUCTIVE PULMONARY DISEASE W (ACUTE) EXACERBATION (2) ASHD (arteriosclerotic heart disease) Code(s): I25.10 - ATHSCL HEART DISEASE OF [place] CORONARY ARTERY W/O ANG PCTRS (3) Acute on chronic respiratory failure with hypercapnia Code(s): J96.22 - ACUTE AND CHRONIC RESPIRATORY FAILURE WITH HYPERCAPNIA (4) Anxiety Code(s): F41.9 - ANXIETY DISORDER, UNSPECIFIED (5) Bladder cancer Code(s): C67.9 - MALIGNANT NEOPLASM OF BLAD[place], UNSPECIFIED (6) Dyspnea Code(s): R06.00 - DYSPNEA, UNSPECIFIED (7) Thoracic aortic aneurysm Code(s): I71.2 - THORACIC AORTIC ANEURYSM, WITHOUT RUPTURE (8) Tobacco abuse Code(s): Z72.0 - TOBACCO USE Assessment/Plan PLAN IS TO CONTINUE IV STEROIDS AND TAPER OFF SLOWLY PO AZITHROMYCIN PA FOR RESPIRATORY SUPPORT AWAIT DISPOSITION TO SNF FOR PULM REHAB OOB TO CHAIR PT EVAL NICOTINE PATCH DISCONTINUED NOW ON CHANTIX DISCUSSED WITH DR ROSS ON ELIQUIS CONTINUE
--- NOTE | 2019-11-16 13:50 | PN ---
Progress Note (short form) - Note Progress Note: PULMONARY Breathing slowly improving. Close to baseline. Vital Signs Period Temp Pulse Resp BP Sys/Lock Pulse Ox Last 24 Hr 97.2 F-97.8 F 64-94 22-24 135-177/50-61 94-99 Gen: less tachypneic at rest Heart: irregular Lung: distant breath sounds Abd: soft, nontender Ext: no edema CBC, BMP 11/13/19 06:05 11/16/19 05:53 Active Medications Albuterol Sulfate (Ventolin 0.083% Nebulizer Soln -) 1 amp NEB Q3H PRN PRN Reason: SHORTNESS OF BREATH Albuterol/Ipratropium (Duoneb -) 1 amp NEB RQID [facility] Last Admin: 11/16/19 08:00 Dose: 1 amp Amlodipine Besylate (Norvasc -) 5 mg PO DAILY [facility] Last Admin: 11/16/19 09:05 Dose: 5 mg Atorvastatin Calcium (Lipitor -) 80 mg PO HS [facility] Last Admin: 11/15/19 21:46 Dose: 80 mg Azithromycin (Zithromax -) 250 mg PO DAILY [facility] Last Admin: 11/16/19 09:06 Dose: 250 mg Chlorhexidine Gluconate (Hibiclens For Decolonization -) 1 applic TP HS [facility] Last Admin: 11/15/19 21:46 Dose: 1 applic Clonazepam (Klonopin -) 0.5 mg PO BID [facility] Last Admin: 11/16/19 09:04 Dose: 0.5 mg Clopidogrel Bisulfate (Plavix -) 75 mg PO DAILY [facility] Last Admin: 11/16/19 09:05 Dose: 75 mg Enoxaparin Sodium (Lovenox -) 40 mg SQ DAILY [facility] Last Admin: 11/16/19 09:04 Dose: 40 mg Lactobacillus Acidophilus (Bacid -) 1 tab PO BID [facility] Last Admin: 11/16/19 09:01 Dose: 1 tab Losartan Potassium (Cozaar -) 100 mg PO DAILY [facility] Last Admin: 11/16/19 09:03 Dose: 100 mg Methylprednisolone Sodium Succinate (Solu-Medrol -) 40 mg IVPUSH Q8H-IV [facility] Last Admin: 11/16/19 09:06 Dose: 40 mg Nystatin (Nystatin Oral Suspension -) 500,000 units PO Q6HPO [facility] Last Admin: 11/16/19 06:25 Dose: 500,000 units Pantoprazole Sodium (Protonix -) 20 mg PO DAILY [facility] Last Admin: 11/16/19 09:06 Dose: 20 mg Roflumilast (Daliresp) 500 mcg PO DAILY [facility] Last Admin: 11/16/19 09:04 Dose: 500 mcg Varenicline (Chantix -) 0.5 mg PO BID [facility] Last Admin: 11/16/19 09:02 Dose: 0.5 mg A/P Acute on Chronic Hypoxic and Hypercapneic Respiratory Failure Acute COPD Exacerbation Acute Bronchitis CAD AAA h/o Bladder Ca HTN Smoker - continue medrol at current dose - inhaled bronchodilators standing and PRN - O2 to keep Spo2 >90% - BiPAP at night and PRN during day - on antibiotics - DVT prophylaxis - low dose anxiolytic - smoking cessation Problem List - Problems (1) Acute on chronic respiratory failure with hypoxia and hypercapnia Code(s): J96.21 - ACUTE AND CHRONIC RESPIRATORY FAILURE WITH HYPOXIA; J96.22 - ACUTE AND CHRONIC RESPIRATORY FAILURE WITH HYPERCAPNIA (2) COPD exacerbation Code(s): J44.1 - CHRONIC OBSTRUCTIVE PULMONARY DISEASE W (ACUTE) EXACERBATION
--- NOTE | 2019-11-16 14:40 | PN ---
Progress Note (short form) - Note Progress Note: s: sob improving, no chest pain, palps, dizziness Current Medications Generic Name Dose Route Start Last Admin Trade Name Freq PRN Reason Stop Dose Admin Albuterol Sulfate 1 amp 11/11/19 20:17 Ventolin 0.083% Nebulizer Soln - NEB Q3H PRN SHORTNESS OF BREATH Albuterol/Ipratropium 1 amp 11/12/19 08:00 11/16/19 08:00 Duoneb - NEB 1 amp RQID [facility] Administration Amlodipine Besylate 5 mg 11/12/19 10:00 11/16/19 09:05 Norvasc - PO 5 mg DAILY [facility] Administration Atorvastatin Calcium 80 mg 11/11/19 22:00 11/15/19 21:46 Lipitor - PO 80 mg HS [facility] Administration Azithromycin 250 mg 11/13/19 10:00 11/16/19 09:06 Zithromax - PO 250 mg DAILY [facility] Administration Chlorhexidine Gluconate 1 applic 11/11/19 22:00 11/15/19 21:46 Hibiclens For Decolonization - TP 1 applic HS [facility] Administration Clonazepam 0.5 mg 11/12/19 12:15 11/16/19 09:04 Klonopin - PO 0.5 mg BID [facility] Administration Clopidogrel Bisulfate 75 mg 11/12/19 10:00 11/16/19 09:05 Plavix - PO 75 mg DAILY [facility] Administration Enoxaparin Sodium 40 mg 11/12/19 10:00 11/16/19 09:04 Lovenox - SQ 40 mg DAILY [facility] Administration Lactobacillus Acidophilus 1 tab 11/11/19 22:00 11/16/19 09:01 Bacid - PO 1 tab BID [facility] Administration Losartan Potassium 100 mg 11/12/19 10:00 11/16/19 09:03 Cozaar - PO 100 mg DAILY [facility] Administration Methylprednisolone Sodium Succinate 40 mg 11/15/19 13:31 11/16/19 09:06 Solu-Medrol - IVPUSH 40 mg Q8H-IV [facility] Administration Nystatin 500,000 units 11/12/19 00:00 11/16/19 06:25 Nystatin Oral Suspension - PO 500,000 units Q6HPO [facility] Administration Pantoprazole Sodium 20 mg 11/12/19 10:00 11/16/19 09:06 Protonix - PO 20 mg DAILY [facility] Administration Roflumilast 500 mcg 11/15/19 12:15 11/16/19 09:04 Daliresp PO 500 mcg DAILY [facility] Administration Varenicline 0.5 mg 11/13/19 22:00 11/16/19 09:02 Chantix - PO 0.5 mg BID [facility] Administration Vital Signs Period Temp Pulse Resp BP Sys/Lock Pulse Ox Last 24 Hr 97.2 F-97.8 F 64-94 22-24 135-177/50-61 94-99 Constitutional: Yes: No Distress, Calm Eyes: Yes: Conjunctiva Clear Respiratory: Yes:cta bl nl eff Gastrointestinal: Yes: Soft JVD: No Heart Sounds: Yes: S1, S2 (rrr) Edema: No (warm) Neurological: Yes: Alert, oriented x 3 no jaundice, diaphoresis not agitated CBC, BMP 11/13/19 06:05 11/16/19 05:53 Imaging - Results Chest X-ray: Image Reviewed (Hyperinflated. No infiltrates or effusions) EKG: Image Reviewed (NSR, old IWMI pattern, poor R wave progression- no change from prior) Assessment/Plan DATA: Echo 04/2019- Normal LVEF. E:A reversal c/w early diastolic dysfx, RV not well seen. tele: sr, brief atrial run IMP/PLAN: Acute respiratory failure: secondary to acute on chronic advanced COPD -NIPPV as per critical care -Steroids, BDs per pulm -PPI Chronic CAD, remote pci, w/o angina: -mult prior stents (prox and mid LAD, entire RCA and RPDA) all patent on cath 2013 -no angina (chronic sob with chest pressure is copd sx--present prior to cath and unchanged since) -no signs acs -cont plavix, statin, arb Chronic diast chf: -borderline depressed LVEF (45% on v-gram, 50% echo 2015) with moderately incr' d LVEDP at cath (24) -never clinical chf, no sob response to trial of lasix in past -BNP has always been elevated and near 1000 range. -appears euvolemic, CXR no congestion -no diuretics at this point HTN: -known bp lability from anxiety at times -stable, cont home meds HPL: -cont home statin +cigs: -previously counselled on cessation many times, not interested in quitting -presently scared of from copd, willing to try but pessimistic re: chances for success. failed patch in past. -trial of chantix underway, per Dr. Encinas will try to arrange copay reduction/ financial assistance via company as outpt Descending thoracic aortic aneurysm: -3.[address] chest 04/2019 -cont bp control -outpatient follow up for monitoring
[2019-11-16] MEDS ORDERED: ALBUTEROL SO4 0.083% IH SOL 2.5 MG/3 ML VIAL.NEB. NEB PRN (21:45)
[2019-11-16] MEDS ORDERED: CHLORHEXIDINE GLUCONATE 4% CLEANSER FOR DECOLONIZATION TP SCH (22:00)
[2019-11-16] MEDS: ATORVASTATIN CA 80 MG TABLET (FP) PO SCH (22:23)
[2019-11-17] MEDS: NYSTATIN 500,000 UNITS/5 ML SUSPENSION PO SCH ×5 (00:40→23:55)
[2019-11-17] MEDS: methylPREDNISolone NA SUCC 40 MG/1 ML VIAL IVPUSH SCH ×3 (01:09→21:33)
[2019-11-17] MEDS: ALBUTEROL SO4 2.5/IPRATROPIUM 0.5 INH SOL 3 ML VIAL.NEB. NEB SCH ×4 (08:00→19:45)
--- NOTE | 2019-11-17 09:34 | PN ---
Progress Note (short form) - Note Progress Note: Breathing slowly continues to improve. Feels like she is getting close to baseline. Was not placed on NIPPV overnight as she feel asleep. Intake & Output 11/14/19 11/15/19 11/16/19 11/17/19 23:59 23:59 23:59 23:59 Intake Total 1060 610 680 500 Output Total 500 2 Balance 560 608 680 500 Last Vital Signs Temp Pulse Resp BP Pulse Ox 98.0 F 74 22 H 152/65 96 11/17/19 05:55 11/17/19 05:55 11/17/19 05:55 11/17/19 05:55 11/16/19 21:00 Active Medications Albuterol Sulfate (Ventolin 0.083% Nebulizer Soln -) 1 amp NEB Q3H PRN PRN Reason: SHORTNESS OF BREATH Albuterol/Ipratropium (Duoneb -) 1 amp NEB RQID [facility] Last Admin: 11/17/19 08:00 Dose: 1 amp Amlodipine Besylate (Norvasc -) 5 mg PO DAILY [facility] Atorvastatin Calcium (Lipitor -) 80 mg PO HS [facility] Last Admin: 11/16/19 22:23 Dose: 80 mg Azithromycin (Zithromax -) 250 mg PO DAILY [facility] Clonazepam (Klonopin -) 0.5 mg PO BID [facility] Last Admin: 11/16/19 22:24 Dose: 0.5 mg Clopidogrel Bisulfate (Plavix -) 75 mg PO DAILY [facility] Enoxaparin Sodium (Lovenox -) 40 mg SQ DAILY [facility] Lactobacillus Acidophilus (Bacid -) 1 tab PO BID [facility] Last Admin: 11/16/19 22:24 Dose: 1 tab Losartan Potassium (Cozaar -) 100 mg PO DAILY [facility] Methylprednisolone Sodium Succinate (Solu-Medrol -) 40 mg IVPUSH Q12H [facility] Nystatin (Nystatin Oral Suspension -) 500,000 units PO Q6HPO [facility] Last Admin: 11/17/19 06:06 Dose: 500,000 units Pantoprazole Sodium (Protonix -) 20 mg PO DAILY [facility] Roflumilast (Daliresp) 500 mcg PO DAILY [facility] Varenicline (Chantix -) 0.5 mg PO BID [facility] Last Admin: 11/16/19 22:57 Dose: 0.5 mg Gen: less tachypneic at rest Heart: irregular Lung: distant breath sounds Abd: soft, nontender Ext: no edema Problem List - Problems (1) Acute on chronic respiratory failure with hypoxia and hypercapnia Code(s): J96.21 - ACUTE AND CHRONIC RESPIRATORY FAILURE WITH HYPOXIA; J96.22 - ACUTE AND CHRONIC RESPIRATORY FAILURE WITH HYPERCAPNIA (2) COPD exacerbation Code(s): J44.1 - CHRONIC OBSTRUCTIVE PULMONARY DISEASE W (ACUTE) EXACERBATION A/P Acute on Chronic Hypoxic and Hypercapneic Respiratory Failure Acute COPD Exacerbation Acute Bronchitis CAD AAA h/o Bladder Ca HTN Smoker - Wean Medrol - inhaled bronchodilators standing and PRN - O2 to keep Spo2 >90% - NIPPV QHS and PRN during day - on antibiotics - DVT prophylaxis - low dose anxiolytic - smoking cessation Dr Morales
--- NOTE | 2019-11-17 09:35 | PN ---
Progress Note, Physician Chief Complaint: COPD Exacerbation History of Present Illness: Previous notes and events reviewed awake and alert NAD Bipap HS denies chest pain or dizziness sts her breathing is improved productive cough - Current Medication List Current Medications: Active Medications Albuterol Sulfate (Ventolin 0.083% Nebulizer Soln -) 1 amp NEB Q3H PRN PRN Reason: SHORTNESS OF BREATH Albuterol/Ipratropium (Duoneb -) 1 amp NEB RQID [facility] Last Admin: 11/17/19 08:00 Dose: 1 amp Amlodipine Besylate (Norvasc -) 5 mg PO DAILY [facility] Atorvastatin Calcium (Lipitor -) 80 mg PO HS [facility] Last Admin: 11/16/19 22:23 Dose: 80 mg Azithromycin (Zithromax -) 250 mg PO DAILY [facility] Clonazepam (Klonopin -) 0.5 mg PO BID [facility] Last Admin: 11/16/19 22:24 Dose: 0.5 mg Clopidogrel Bisulfate (Plavix -) 75 mg PO DAILY [facility] Enoxaparin Sodium (Lovenox -) 40 mg SQ DAILY [facility] Lactobacillus Acidophilus (Bacid -) 1 tab PO BID [facility] Last Admin: 11/16/19 22:24 Dose: 1 tab Losartan Potassium (Cozaar -) 100 mg PO DAILY [facility] Methylprednisolone Sodium Succinate (Solu-Medrol -) 40 mg IVPUSH BID [facility] Nystatin (Nystatin Oral Suspension -) 500,000 units PO Q6HPO [facility] Last Admin: 11/17/19 06:06 Dose: 500,000 units Pantoprazole Sodium (Protonix -) 20 mg PO DAILY [facility] Roflumilast (Daliresp) 500 mcg PO DAILY [facility] Varenicline (Chantix -) 0.5 mg PO BID [facility] Last Admin: 11/16/19 22:57 Dose: 0.5 mg - Objective Vital Signs: Vital Signs Temperature 98.0 F 11/17/19 05:55 Pulse Rate 74 11/17/19 05:55 Respiratory Rate 22 H 11/17/19 05:55 Blood Pressure 152/65 11/17/19 05:55 O2 Sat by Pulse Oximetry (%) 96 11/16/19 21:00 Constitutional: Yes: No Distress, Calm, Thin Eyes: Yes: Conjunctiva Clear HENT: Yes: Atraumatic Cardiovascular: Yes: Regular Rate and Rhythm Respiratory: Yes: Regular, Diminished, On Nasal O2 Gastrointestinal: Yes: Normal Bowel Sounds, Soft Musculoskeletal: Yes: Muscle Weakness Extremities: Yes: WNL Edema: No Neurological: Yes: Alert, Oriented Psychiatric: Yes: Alert, Oriented Labs: CBC, BMP 11/13/19 06:05 11/16/19 05:53 Microbiology 11/08/19 08:45 Sputum - Expectorated Gram Stain - Final 11/08/19 08:45 Sputum - Expectorated Sputum Culture - Final NORMAL RESPIRATORY [facility] Problem List - Problems (1) Acute on chronic respiratory failure with hypercapnia Assessment/Plan: -Pulmonary on board -CXR shows no acute chest pathology -Bipap -IV Solumedrol -bronchodilators -keep SpO2 >90% -Daliresp -sputum culture neg -Influenza A & B rapid neg -Azithromycin Code(s): J96.22 - ACUTE AND CHRONIC RESPIRATORY FAILURE WITH HYPERCAPNIA (2) Anxiety Assessment/Plan: -Klonopin BID Code(s): F41.9 - ANXIETY DISORDER, UNSPECIFIED (3) Bladder cancer Assessment/Plan: -follow up with Oncology as scheduled Code(s): C67.9 - MALIGNANT NEOPLASM OF BLADDER, UNSPECIFIED (4) CAD (coronary artery disease) Assessment/Plan: -Atorvastatin and Plavix Code(s): I25.10 - ATHSCL HEART DISEASE OF [place] CORONARY ARTERY W/O ANG PCTRS (5) COPD exacerbation Assessment/Plan: -Pulmonary on board -CXR shows no acute chest pathology -O2 via NC -IV Solumedrol -bronchodilators -Bipap PRN and HS -keep SpO2 >90% -Daliresp -Azithromycin Code(s): J44.1 - CHRONIC OBSTRUCTIVE PULMONARY DISEASE W (ACUTE) EXACERBATION (6) Chronic diastolic CHF (congestive heart failure) Assessment/Plan: -Cardiology consult -1L fluid restriction -low Na diet -strict I&Os -BNP 1316.2 Code(s): I50.32 - CHRONIC DIASTOLIC (CONGESTIVE) HEART FAILURE (7) HTN (hypertension) Assessment/Plan: -Amlodipine, Losartan -low Na diet Code(s): I10 - ESSENTIAL (PRIMARY) HYPERTENSION (8) Thoracic aortic aneurysm Assessment/Plan: -BP control -continue outpatient monitoring Code(s): I71.2 - THORACIC AORTIC ANEURYSM, WITHOUT RUPTURE Assessment/Plan see problem list dvt ppx will need pulmonary rehab for discharge
[2019-11-17] MEDS: ROFLUMILAST 500 MCG TABLET PO SCH (10:15)
[2019-11-17] MEDS ORDERED: PT OWN MED DRAWER 7, Y5N ONE (10:22)
[2019-11-17] MEDS: CLOPIDOGREL BISULFATE 75 MG TABLET (FP) PO SCH (10:24)
[2019-11-17] MEDS: clonazePAM 0.5 MG TABLET PO SCH ×2 (10:24→21:34)
[2019-11-17] MEDS: AZITHROMYCIN 250 MG TABLET PO SCH (10:25)
[2019-11-17] MEDS: LACTOBACILLUS ACIDOPHILUS 1 TABLET PO SCH ×2 (10:25→21:33)
[2019-11-17] MEDS: ENOXAPARIN NA (PORCINE) 40 MG/0.4 ML DISP.SYRIN SQ SCH (10:25)
[2019-11-17] MEDS: amLODIPine BESYLATE 5 MG TABLET (FP) PO SCH (10:25)
[2019-11-17] MEDS: PANTOPRAZOLE 20 MG TABLET PO SCH (10:25)
[2019-11-17] MEDS: VARENICLINE TARTRATE 0.5 MG TAB PO SCH ×2 (10:30→21:34)
[2019-11-17] MEDS: LOSARTAN POTASSIUM 50 MG TABLET (FP) PO SCH (10:31)
--- NOTE | 2019-11-17 15:33 | PN ---
Progress Note (short form) - Note Progress Note: s: sob stable. no chest pain, palps, dizziness Current Medications Albuterol Sulfate (Ventolin 0.083% Nebulizer Soln -) 1 amp NEB Q3H PRN PRN Reason: SHORTNESS OF BREATH Albuterol/Ipratropium (Duoneb -) 1 amp NEB RQID [facility] Last Admin: 11/17/19 11:22 Dose: 1 amp Amlodipine Besylate (Norvasc -) 5 mg PO DAILY [facility] Last Admin: 11/17/19 10:25 Dose: 5 mg Atorvastatin Calcium (Lipitor -) 80 mg PO HS [facility] Last Admin: 11/16/19 22:23 Dose: 80 mg Azithromycin (Zithromax -) 250 mg PO DAILY [facility] Last Admin: 11/17/19 10:25 Dose: 250 mg Clonazepam (Klonopin -) 0.5 mg PO BID [facility] Last Admin: 11/17/19 10:24 Dose: 0.5 mg Clopidogrel Bisulfate (Plavix -) 75 mg PO DAILY [facility] Last Admin: 11/17/19 10:24 Dose: 75 mg Enoxaparin Sodium (Lovenox -) 40 mg SQ DAILY [facility] Last Admin: 11/17/19 10:25 Dose: 40 mg Lactobacillus Acidophilus (Bacid -) 1 tab PO BID [facility] Last Admin: 11/17/19 10:25 Dose: 1 tab Losartan Potassium (Cozaar -) 100 mg PO DAILY [facility] Last Admin: 11/17/19 10:31 Dose: 100 mg Methylprednisolone Sodium Succinate (Solu-Medrol -) 40 mg IVPUSH BID [facility] Last Admin: 11/17/19 10:25 Dose: 40 mg Nystatin (Nystatin Oral Suspension -) 500,000 units PO Q6HPO [facility] Last Admin: 11/17/19 12:50 Dose: 500,000 units Pantoprazole Sodium (Protonix -) 20 mg PO DAILY [facility] Last Admin: 11/17/19 10:25 Dose: 20 mg Roflumilast (Daliresp) 500 mcg PO DAILY [facility] Last Admin: 11/17/19 10:15 Dose: 500 mcg Varenicline (Chantix -) 0.5 mg PO BID [facility] Last Admin: 11/17/19 10:30 Dose: 0.5 mg Vital Signs Period Temp Pulse Resp BP Sys/Lock Pulse Ox Last 24 Hr 97.6 F-98.0 F 63-82 22-24 133-152/49-65 96 Constitutional: Yes: No Distress, Calm Eyes: Yes: Conjunctiva Clear Respiratory: Yes:cta bl nl eff Gastrointestinal: Yes: Soft JVD: No Heart Sounds: Yes: S1, S2 (rrr) Edema: No (warm) Neurological: Yes: Alert, oriented x 3 no jaundice, diaphoresis not agitated Imaging - Results Chest X-ray: Image Reviewed (Hyperinflated. No infiltrates or effusions) EKG: Image Reviewed (NSR, old IWMI pattern, poor R wave progression- no change from prior) Assessment/Plan DATA: Echo 04/2019- Normal LVEF. E:A reversal c/w early diastolic dysfx, RV not well seen. IMP/PLAN: Acute respiratory failure: secondary to acute on chronic advanced COPD -NIPPV as per critical care -Steroids, BDs per pulm -PPI Chronic CAD, remote pci, w/o angina: -mult prior stents (prox and mid LAD, entire RCA and RPDA) all patent on cath 2013 -no angina (chronic sob with chest pressure is copd sx--present prior to cath and unchanged since) -no signs acs -cont plavix, statin, arb Chronic diast chf: -borderline depressed LVEF (45% on v-gram, 50% echo 2015) with moderately incr' d LVEDP at cath (24) -never clinical chf, no sob response to trial of lasix in past -BNP has always been elevated and near 1000 range. -appears euvolemic, CXR no congestion -no diuretics at this point HTN: -known bp lability from anxiety at times -stable, cont home meds HPL: -cont home statin +cigs: -previously counselled on cessation many times, not interested in quitting -trial of chantix underway, per Dr. Encinas will try to arrange copay reduction/ financial assistance via company as outpt Descending thoracic aortic aneurysm: -3.[address] chest 04/2019 -cont bp control -outpatient follow up for monitoring
[2019-11-17] MEDS: ATORVASTATIN CA 80 MG TABLET (FP) PO SCH (21:34)
[2019-11-18] MEDS: NYSTATIN 500,000 UNITS/5 ML SUSPENSION PO SCH ×2 (06:16→12:07)
[2019-11-18] MEDS: ALBUTEROL SO4 2.5/IPRATROPIUM 0.5 INH SOL 3 ML VIAL.NEB. NEB SCH ×3 (07:25→15:47)
--- NOTE | 2019-11-18 09:04 | PN ---
Progress Note, Physician - Current Medication List Current Medications: Active Medications Albuterol Sulfate (Ventolin 0.083% Nebulizer Soln -) 1 amp NEB Q3H PRN PRN Reason: SHORTNESS OF BREATH Albuterol/Ipratropium (Duoneb -) 1 amp NEB RQID [facility] Last Admin: 11/18/19 07:25 Dose: 1 amp Amlodipine Besylate (Norvasc -) 5 mg PO DAILY [facility] Last Admin: 11/17/19 10:25 Dose: 5 mg Atorvastatin Calcium (Lipitor -) 80 mg PO HS [facility] Last Admin: 11/17/19 21:34 Dose: 80 mg Azithromycin (Zithromax -) 250 mg PO DAILY [facility] Last Admin: 11/17/19 10:25 Dose: 250 mg Clonazepam (Klonopin -) 0.5 mg PO BID [facility] Last Admin: 11/17/19 21:34 Dose: 0.5 mg Clopidogrel Bisulfate (Plavix -) 75 mg PO DAILY [facility] Last Admin: 11/17/19 10:24 Dose: 75 mg Enoxaparin Sodium (Lovenox -) 40 mg SQ DAILY [facility] Last Admin: 11/17/19 10:25 Dose: 40 mg Lactobacillus Acidophilus (Bacid -) 1 tab PO BID [facility] Last Admin: 11/17/19 21:33 Dose: 1 tab Losartan Potassium (Cozaar -) 100 mg PO DAILY [facility] Last Admin: 11/17/19 10:31 Dose: 100 mg Methylprednisolone Sodium Succinate (Solu-Medrol -) 40 mg IVPUSH BID [facility] Last Admin: 11/17/19 21:33 Dose: 40 mg Nystatin (Nystatin Oral Suspension -) 500,000 units PO Q6HPO [facility] Last Admin: 11/18/19 06:16 Dose: 500,000 units Pantoprazole Sodium (Protonix -) 20 mg PO DAILY [facility] Last Admin: 11/17/19 10:25 Dose: 20 mg Roflumilast (Daliresp) 500 mcg PO DAILY [facility] Last Admin: 11/17/19 10:15 Dose: 500 mcg Varenicline (Chantix -) 0.5 mg PO BID [facility] Last Admin: 11/17/19 21:34 Dose: 0.5 mg - Objective Vital Signs: Vital Signs Temperature 98.3 F 11/18/19 06:00 Pulse Rate 80 11/18/19 06:00 Respiratory Rate 20 11/18/19 06:00 Blood Pressure 150/70 11/18/19 06:00 O2 Sat by Pulse Oximetry (%) 98 11/18/19 08:15 Labs: CBC, BMP 11/13/19 06:05 11/16/19 05:53 Problem List - Problems (1) Acute on chronic respiratory failure with hypercapnia Code(s): J96.22 - ACUTE AND CHRONIC RESPIRATORY FAILURE WITH HYPERCAPNIA (2) Anxiety Code(s): F41.9 - ANXIETY DISORDER, UNSPECIFIED (3) Bladder cancer Code(s): C67.9 - MALIGNANT NEOPLASM OF BLADDER, UNSPECIFIED (4) CAD (coronary artery disease) Code(s): I25.10 - ATHSCL HEART DISEASE OF [place] CORONARY ARTERY W/O ANG PCTRS (5) COPD exacerbation Code(s): J44.1 - CHRONIC OBSTRUCTIVE PULMONARY DISEASE W (ACUTE) EXACERBATION (6) Chronic diastolic CHF (congestive heart failure) Code(s): I50.32 - CHRONIC DIASTOLIC (CONGESTIVE) HEART FAILURE (7) HTN (hypertension) Code(s): I10 - ESSENTIAL (PRIMARY) HYPERTENSION (8) Thoracic aortic aneurysm Code(s): I71.2 - THORACIC AORTIC ANEURYSM, WITHOUT RUPTURE
[2019-11-18 09:23] LABS: HEMATOCRIT 35.6 % (32.4-45.2); HEMOGLOBIN 11.5 GM/dL (10.7-15.3); MCH 28.4 pg (25.7-33.7); MCHC 32.2 g/dl (32.0-36.0); MEAN CELL VOLUME 88.3 fl (80-96); MEAN PLT VOLUME 8.4 fl (7.5-11.1); PLATELET COUNT 224 K/MM3 (134-434); RBC 4.03 M/mm3 (3.60-5.2); RDW 18.5 % (11.6-15.6); WHITE BLOOD COUNT 17.4 K/mm3 (4.0-10.0)
[2019-11-18] MEDS ORDERED: PT OWN MED DRAWER 7, Y5N ONE (09:42)
[2019-11-18] MEDS: clonazePAM 0.5 MG TABLET PO SCH (09:44)
[2019-11-18] MEDS: AZITHROMYCIN 250 MG TABLET PO SCH (09:44)
[2019-11-18] MEDS: amLODIPine BESYLATE 5 MG TABLET (FP) PO SCH (09:44)
[2019-11-18] MEDS: CLOPIDOGREL BISULFATE 75 MG TABLET (FP) PO SCH (09:44)
[2019-11-18] MEDS: ROFLUMILAST 500 MCG TABLET PO SCH (09:44)
[2019-11-18] MEDS: LACTOBACILLUS ACIDOPHILUS 1 TABLET PO SCH (09:45)
[2019-11-18] MEDS: LOSARTAN POTASSIUM 50 MG TABLET (FP) PO SCH (09:45)
[2019-11-18] MEDS: VARENICLINE TARTRATE 0.5 MG TAB PO SCH (09:45)
[2019-11-18] MEDS: PANTOPRAZOLE 20 MG TABLET PO SCH (09:45)
[2019-11-18] MEDS: ENOXAPARIN NA (PORCINE) 40 MG/0.4 ML DISP.SYRIN SQ SCH (09:45)
[2019-11-18] MEDS: methylPREDNISolone NA SUCC 40 MG/1 ML VIAL IVPUSH SCH (09:45)
[2019-11-18 10:01] LABS: BILIRUBIN,TOTAL 0.5 mg/dL (0.2-1); BLOOD UREA NITROGEN 30.4 mg/dL (7-18); CALCIUM 8.8 mg/dL (8.5-10.1); CREATININE 0.7 mg/dL (0.55-1.3); POTASSIUM 4.4 mmol/L (3.5-5.1); TOT PROT 5.4 g/dl (6.4-8.2)
--- NOTE | 2019-11-18 10:33 | DS ---
Physical Examination Vital Signs: Vital Signs Temperature 98.3 F 11/18/19 06:00 Pulse Rate 80 11/18/19 06:00 Respiratory Rate 20 11/18/19 06:00 Blood Pressure 150/70 11/18/19 06:00 O2 Sat by Pulse Oximetry (%) 98 11/18/19 08:15 Findings/Remarks: Laboratory Last Values WBC 17.4 K/mm3 (4.0-10.0) H 11/18/19 08:45 RBC 4.03 M/mm3 (3.60-5.2) 11/18/19 08:45 Hgb 11.5 GM/dL (10.7-15.3) 11/18/19 08:45 Hct 35.6 % (32.4-45.2) 11/18/19 08:45 MCV 88.3 fl (80-96) 11/18/19 08:45 MCH 28.4 pg (25.7-33.7) 11/18/19 08:45 MCHC 32.2 g/dl (32.0-36.0) 11/18/19 08:45 RDW 18.5 % (11.6-15.6) H 11/18/19 08:45 Plt Count 224 K/MM3 (134-434) 11/18/19 08:45 MPV 8.4 fl (7.5-11.1) 11/18/19 08:45 Absolute Neuts (auto) 8.7 K/mm3 (1.5-8.0) H 11/12/19 06:03 Neutrophils % 83.4 % (42.8-82.8) H 11/12/19 06:03 Neutrophils % (Manual) 93.0 % (42.8-82.8) H 11/10/19 05:18 Band Neutrophils % 3.0 % 11/10/19 05:18 Lymphocytes % 10.2 % (8-40) D 11/12/19 06:03 Lymphocytes % (Manual) 3.0 % (8-40) L D 11/10/19 05:18 Monocytes % 6.3 % (3.8-10.2) 11/12/19 06:03 Monocytes % (Manual) 1 % (3.8-10.2) L D 11/10/19 05:18 Eosinophils % 0.0 % (0-4.5) 11/12/19 06:03 Eosinophils % (Manual) 0.0 % (0-4.5) 11/10/19 05:18 Basophils % 0.1 % (0-2.0) 11/12/19 06:03 Basophils % (Manual) 0.0 % (0-2.0) 11/10/19 05:18 Myelocytes % (Man) 0 % (0-2) 11/10/19 05:18 Promyelocytes % (Man) 0 % (0-2) 11/10/19 05:18 Blast Cells % (Manual) 0 % (0-0) 11/10/19 05:18 Nucleated RBC % 0 % (0-0) 11/12/19 06:03 Metamyelocytes 0 % (0-2) 11/10/19 05:18 Hypochromia 0 11/10/19 05:18 Toxic Granulation 0 11/07/19 18:45 Dohle Bodies 0 11/07/19 18:45 Platelet Estimate Normal 11/10/19 05:18 Polychromasia 1+ 11/10/19 05:18 Poikilocytosis 1+ 11/10/19 05:18 Basophilic Stippling 0 11/07/19 18:45 Anisocytosis 2+ 11/10/19 05:18 Microcytosis 1+ 11/10/19 05:18 Macrocytosis 0 11/10/19 05:18 Spherocytes 1+ 11/10/19 05:18 Sickle Cells 0 11/07/19 18:45 Target Cells 0 11/07/19 18:45 Tear Drop Cells 0 11/07/19 18:45 Ovalocytes 1+ 11/10/19 05:18 Stomatocytes 0 11/07/19 18:45 Helmet Cells 0 11/07/19 18:45 [place] Bodies 0 11/07/19 18:45 [place] Rings 0 11/07/19 18:45 [place] Cells 0 11/07/19 18:45 Acanthocytes (Spur) 0 11/07/19 18:45 Rouleaux 0 11/07/19 18:45 Fragmented RBCs 0 11/07/19 18:45 Schistocytes 1+ 11/10/19 05:18 Anticoagulation Therapy No Result Required. 11/08/19 18:55 Puncture Site Right radial 11/08/19 18:55 ABG pH 7.42 (7.35-7.45) 11/08/19 18:55 ABG pCO2 at Pt Temp 62.8 mmHg (35-45) H 11/08/19 18:55 ABG pO2 at Pt Temp 67.5 mmHg (80-100) L 11/08/19 18:55 ABG HCO3 40.0 mmol/L (22-27) H 11/08/19 18:55 ABG O2 Sat (Measured) 92.8 % (95-98) L 11/08/19 18:55 ABG O2 Content 14.3 % vol 11/08/19 18:55 ABG Base Excess 13.3 meq/l (-2-2) H 11/08/19 18:55 Michael Test Positive 11/08/19 18:55 O2 Delivery Device Bipap 11/08/19 18:55 Oxygen Flow Rate 40% 11/08/19 18:55 Vent Mode No Result Required. 11/08/19 18:55 Vent Rate 12 11/08/19 18:55 Mechanical Rate No Result Required. 11/08/19 18:55 Pressure Support Vent No Result Required. 11/08/19 18:55 Sodium 140 mmol/L (136-145) 11/18/19 08:45 Potassium 4.4 mmol/L (3.5-5.1) 11/18/19 08:45 Chloride 102 mmol/L (98-107) 11/18/19 08:45 Carbon Dioxide 36 mmol/L (21-32) H 11/18/19 08:45 Anion Gap 3 MMOL/L (8-16) L 11/18/19 08:45 BUN 30.4 mg/dL (7-18) H 11/18/19 08:45 Creatinine 0.7 mg/dL (0.55-1.3) 11/18/19 08:45 Est GFR (CKD-EPI)AfAm 99.62 11/18/19 08:45 Est GFR (CKD-EPI)NonAf 85.95 11/18/19 08:45 Random Glucose 169 mg/dL (74-106) H 11/18/19 08:45 Calcium 8.8 mg/dL (8.5-10.1) 11/18/19 08:45 Phosphorus 3.3 mg/dL (2.5-4.9) 11/12/19 06:03 Magnesium 2.3 mg/dL (1.8-2.4) 11/16/19 05:53 Total Bilirubin 0.5 mg/dL (0.2-1) 11/18/19 08:45 AST 19 U/L (15-37) 11/18/19 08:45 ALT 53 U/L (13-61) 11/18/19 08:45 Alkaline Phosphatase 60 U/L (45-117) 11/18/19 08:45 Creatine Kinase 83 U/L (26-192) 11/07/19 18:45 Troponin I 0.04 ng/ml (0.00-0.05) 11/07/19 18:45 B-Natriuretic Peptide 1316.2 pg/ml (5-125) H 11/07/19 18:45 Total Protein 5.4 g/dl (6.4-8.2) L 11/18/19 08:45 Albumin 3.0 g/dl (3.4-5.0) L 11/18/19 08:45 Influenza A (Rapid) Negative (Negative) 11/08/19 14:00 Influenza B (Rapid) Negative (Negative) 11/08/19 14:00 Active Medications Generic Name Dose Route Start Last Admin Trade Name Freq PRN Reason Stop Dose Admin Albuterol Sulfate 1 amp 11/16/19 21:45 Ventolin 0.083% Nebulizer Soln - NEB Q3H PRN SHORTNESS OF BREATH Albuterol/Ipratropium 1 amp 11/17/19 08:00 11/18/19 07:25 Duoneb - NEB 1 amp RQID ALFA Administration Amlodipine Besylate 5 mg 11/17/19 10:00 11/18/19 09:44 Norvasc - PO 5 mg DAILY ALFA Administration Atorvastatin Calcium 80 mg 11/16/19 22:00 11/17/19 21:34 Lipitor - PO 80 mg HS ALFA Administration Azithromycin 250 mg 11/17/19 10:00 11/18/19 09:44 Zithromax - PO 250 mg DAILY ALFA Administration Clonazepam 0.5 mg 11/16/19 22:00 11/18/19 09:44 Klonopin - PO 0.5 mg BID ALFA Administration Clopidogrel Bisulfate 75 mg 11/17/19 10:00 11/18/19 09:44 Plavix - PO 75 mg DAILY ALFA Administration Enoxaparin Sodium 40 mg 11/17/19 10:00 11/18/19 09:45 Lovenox - SQ 40 mg DAILY ALFA Administration Lactobacillus Acidophilus 1 tab 11/16/19 22:00 11/18/19 09:45 Bacid - PO 1 tab BID ALFA Administration Losartan Potassium 100 mg 11/17/19 10:00 11/18/19 09:45 Cozaar - PO 100 mg DAILY ALFA Administration Methylprednisolone Sodium Succinate 40 mg 11/17/19 10:00 11/18/19 09:45 Solu-Medrol - IVPUSH 40 mg BID ALFA Administration Nystatin 500,000 units 11/17/19 00:00 11/18/19 06:16 Nystatin Oral Suspension - PO 500,000 units Q6HPO ALFA Administration Pantoprazole Sodium 20 mg 11/17/19 10:00 11/18/19 09:45 Protonix - PO 20 mg DAILY ALFA Administration Roflumilast 500 mcg 11/17/19 10:00 11/18/19 09:44 Daliresp PO 500 mcg DAILY ALFA Administration Varenicline 0.5 mg 11/16/19 22:00 11/18/19 09:45 Chantix - PO 0.5 mg BID ALFA Administration Microbiology 11/08/19 08:45 Sputum - Expectorated Gram Stain - Final 11/08/19 08:45 Sputum - Expectorated Sputum Culture - Final NORMAL RESPIRATORY JUDAH Constitutional: Yes: No Distress, Calm, Thin Eyes: Yes: Conjunctiva Clear HENT: Yes: Atraumatic Cardiovascular: Yes: Regular Rate and Rhythm Respiratory: Yes: Regular, Diminished, On Nasal O2 Gastrointestinal: Yes: Normal Bowel Sounds, Soft Musculoskeletal: Yes: Muscle Weakness Extremities: Yes: WNL Edema: No Neurological: Yes: Alert, Oriented Psychiatric: Yes: Alert, Oriented Labs: CBC, BMP 11/18/19 08:45 11/18/19 08:45 Discharge Summary Problems reviewed: Yes Reason For Visit: COPD Current Active Problems COPD exacerbation (Acute) Hospital Course: Mrs. Tadeo is a 74 year old female with PMHx bladder cancer, hypertension, CAD with stents in 2008,abdominal aortic aneurysm, and COPD (home oxygen dependent, uses NC at 3-4L 24 hrs/day, oxygen saturation range in the upper 80's-low 90's) who presents with shortness of breath and a white productive cough which started yesterday and worsened today. She denied chest pain, fever, dizziness or syncopy. She reports she sleeps with the head of the bed elevated. She denied leg swelling or PND. ER course was notable for: (1)COPD Exacerbation, CXR w/ mild atelectasis at right base, received IV Solumedrol and a3 duonebs with improvement in symptoms (2)Elevated BNP of 1316 (previously in 900's), no signs of fluid overload on exam - Problems (1) Acute on chronic respiratory failure with hypercapnia Assessment/Plan: -Pulmonary on board -CXR shows no acute chest pathology -Bipap -IV Solumedrol -bronchodilators -keep SpO2 >90% -Daliresp -sputum culture neg -Influenza A & B rapid neg -Azithromycin Code(s): J96.22 - ACUTE AND CHRONIC RESPIRATORY FAILURE WITH HYPERCAPNIA (2) Anxiety Assessment/Plan: -Klonopin BID Code(s): F41.9 - ANXIETY DISORDER, UNSPECIFIED (3) Bladder cancer Assessment/Plan: -follow up with Oncology as scheduled Code(s): C67.9 - MALIGNANT NEOPLASM OF BLADDER, UNSPECIFIED (4) CAD (coronary artery disease) Assessment/Plan: -Atorvastatin and Plavix Code(s): I25.10 - ATHSCL HEART DISEASE OF [place] CORONARY ARTERY W/O ANG PCTRS (5) COPD exacerbation Assessment/Plan: -Pulmonary on board -CXR shows no acute chest pathology -O2 via NC -IV Solumedrol -bronchodilators -Bipap PRN and HS -keep SpO2 >90% -Daliresp -Azithromycin Code(s): J44.1 - CHRONIC OBSTRUCTIVE PULMONARY DISEASE W (ACUTE) EXACERBATION (6) Chronic diastolic CHF (congestive heart failure) Assessment/Plan: -Cardiology consult -1L fluid restriction -low Na diet -strict I&Os -BNP 1316.2 Code(s): I50.32 - CHRONIC DIASTOLIC (CONGESTIVE) HEART FAILURE (7) HTN (hypertension) Assessment/Plan: -Amlodipine, Losartan -low Na diet Code(s): I10 - ESSENTIAL (PRIMARY) HYPERTENSION (8) Thoracic aortic aneurysm Assessment/Plan: -BP control -continue outpatient monitoring Code(s): I71.2 - THORACIC AORTIC ANEURYSM, WITHOUT RUPTURE Condition: Stable - Instructions Diet, Activity, Other Instructions: patient will need pulmonary rehab and close outpatient follow up with Pulmonary will need Bipap HS and O2 via NC at rest low Na diet continue with medication as prescribed return to ER if develop severe pain, respiratory distress, chest pain Referrals: Khanh Gutiérrez MD [Primary Care Provider] - Tra Morales MD [Staff Physician] - Disposition: [facility] - Home Medications Comprehensive Discharge Medication List: Ambulatory Orders Amlodipine Besylate 5 mg PO DAILY 05/08/16 Losartan Potassium 100 mg PO DAILY 05/08/16 Clopidogrel Bisulfate [Plavix -] 75 mg PO DAILY #0 05/12/16 Atorvastatin Ca [Lipitor] 80 mg PO HS tablet 11/03/16 Lactobacillus Acidophilus [Bacid -] 1 tab PO BID #60 tab 11/03/16 Albuterol 2.5/Ipratropium 0.5 [Duoneb -] 1 amp NEB RQID amp 04/26/18 Alprazolam [Xanax] 0.25 mg PO BID #20 tablet MDD 2 04/26/18 Tiotropium Br/Olodaterol HCl [Stiolto Respimat Inhal [place]] 2 puff IH DAILY Tiotropium [place] [Spiriva] 18 mcg IH DAILY 04/26/19 Azithromycin [Zithromax -] 250 mg PO UTDICT #5 tablet 10/09/19 Pantoprazole Sodium [Protonix -] 20 mg PO DAILY #30 tablet.ec 10/09/19 Prednisone 10 mg PO DAILY #30 tablet 10/09/19 Roflumilast [Daliresp] 500 mcg PO DAILY #30 tab 10/09/19
--- NOTE | 2019-11-18 15:15 | PN ---
Progress Note (short form) - Note Progress Note: s: sob improved, no chest pain, palps, dizziness Current Medications Generic Name Dose Route Start Last Admin Trade Name Freq PRN Reason Stop Dose Admin Albuterol Sulfate 1 amp 11/16/19 21:45 Ventolin 0.083% Nebulizer Soln - NEB Q3H PRN SHORTNESS OF BREATH Albuterol/Ipratropium 1 amp 11/17/19 08:00 11/18/19 11:34 Duoneb - NEB 1 amp RQID ALFA Administration Amlodipine Besylate 5 mg 11/17/19 10:00 11/18/19 09:44 Norvasc - PO 5 mg DAILY ALFA Administration Atorvastatin Calcium 80 mg 11/16/19 22:00 11/17/19 21:34 Lipitor - PO 80 mg HS ALFA Administration Azithromycin 250 mg 11/17/19 10:00 11/18/19 09:44 Zithromax - PO 250 mg DAILY ALFA Administration Clonazepam 0.5 mg 11/16/19 22:00 11/18/19 09:44 Klonopin - PO 0.5 mg BID ALFA Administration Clopidogrel Bisulfate 75 mg 11/17/19 10:00 11/18/19 09:44 Plavix - PO 75 mg DAILY ALFA Administration Enoxaparin Sodium 40 mg 11/17/19 10:00 11/18/19 09:45 Lovenox - SQ 40 mg DAILY ALFA Administration Lactobacillus Acidophilus 1 tab 11/16/19 22:00 11/18/19 09:45 Bacid - PO 1 tab BID ALFA Administration Losartan Potassium 100 mg 11/17/19 10:00 11/18/19 09:45 Cozaar - PO 100 mg DAILY ALFA Administration Methylprednisolone Sodium Succinate 40 mg 11/17/19 10:00 11/18/19 09:45 Solu-Medrol - IVPUSH 40 mg BID ALFA Administration Nystatin 500,000 units 11/17/19 00:00 11/18/19 12:07 Nystatin Oral Suspension - PO 500,000 units Q6HPO ALFA Administration Pantoprazole Sodium 20 mg 11/17/19 10:00 11/18/19 09:45 Protonix - PO 20 mg DAILY ALFA Administration Roflumilast 500 mcg 11/17/19 10:00 11/18/19 09:44 Daliresp PO 500 mcg DAILY ALFA Administration Varenicline 0.5 mg 11/16/19 22:00 11/18/19 09:45 Chantix - PO 0.5 mg BID ALFA Administration Vital Signs Period Temp Pulse Resp BP Sys/Lock Pulse Ox Last 24 Hr 98.1 F-98.3 F 73-82 20-20 124-150/57-70 93-98 Constitutional: Yes: No Distress, Calm Eyes: Yes: Conjunctiva Clear Respiratory: Yes:cta bl nl eff Gastrointestinal: Yes: Soft JVD: No Heart Sounds: Yes: S1, S2 (rrr) Edema: No (warm) Neurological: Yes: Alert, oriented x 3 no jaundice, diaphoresis not agitated CBC, BMP 11/18/19 08:45 11/18/19 08:45 Imaging - Results Chest X-ray: Image Reviewed (Hyperinflated. No infiltrates or effusions) EKG: Image Reviewed (NSR, old IWMI pattern, poor R wave progression- no change from prior) Assessment/Plan DATA: Echo 04/2019- Normal LVEF. E:A reversal c/w early diastolic dysfx, RV not well seen. tele: sr, brief atrial run IMP/PLAN: Acute respiratory failure: secondary to acute on chronic advanced COPD -NIPPV as per critical care -Steroids, BDs per pulm -PPI Chronic CAD, remote pci, w/o angina: -mult prior stents (prox and mid LAD, entire RCA and RPDA) all patent on cath 2013 -no angina (chronic sob with chest pressure is copd sx--present prior to cath and unchanged since) -no signs acs -cont plavix, statin, arb Chronic diast chf: -borderline depressed LVEF (45% on v-gram, 50% echo 2015) with moderately incr' d LVEDP at cath (24) -never clinical chf, no sob response to trial of lasix in past -BNP has always been elevated and near 1000 range. -appears euvolemic, CXR no congestion -no diuretics at this point HTN: -known bp lability from anxiety at times -stable, cont home meds HPL: -cont home statin +cigs: -previously counselled on cessation many times, not interested in quitting -presently scared of from copd, willing to try but pessimistic re: chances for success. failed patch in past. -trial of chantix underway, per Dr. Encinas will try to arrange copay reduction/ financial assistance via company as outpt Descending thoracic aortic aneurysm: -3.[address] chest 04/2019 -cont bp control -outpatient follow up for monitoring
[2019-11-18 15:17] VITALS: BP 119/60; PULSE 71; TEMP 97.7
== END 2019-11-18 16:48 | DRG 190 ==
LOC: JER 16:26 → JERBED 23:04 → J8W 11-08 03:01 → JERBED 11-08 05:03 → J8W 11-08 05:04 → JICU 11-08 14:38 → J2W 11-11 15:49 → J6S 11-16 21:32
PROVIDERS: ADMIT Family Medicine; ATTEND Family Medicine
PROC: 5A09457 Assistance with Respiratory Ventilation, 24-96 Consecutive Hours, Continuous Positive Airway Pressure (ICD-10-PCS; principal; 2019-11-11)
DX: J44.1 Chronic obstructive pulmonary disease with (acute) exacerbation (principal); J96.22 Acute and chronic respiratory failure with hypercapnia; J96.21 Acute and chronic respiratory failure with hypoxia; J96.11 Chronic respiratory failure with hypoxia; R64 Cachexia; I50.32 Chronic diastolic (congestive) heart failure; Z68.1 Body mass index [BMI] 19.9 or less, adult; J98.11 Atelectasis; I11.0 Hypertensive heart disease with heart failure; J20.9 Acute bronchitis, unspecified; J44.0 Chronic obstructive pulmonary disease with (acute) lower respiratory infection; Z99.81 Dependence on supplemental oxygen; I25.10 Atherosclerotic heart disease of native coronary artery without angina pectoris; I25.2 Old myocardial infarction; F41.9 Anxiety disorder, unspecified; C67.9 Malignant neoplasm of bladder, unspecified; F17.210 Nicotine dependence, cigarettes, uncomplicated; I71.2 Thoracic aortic aneurysm, without rupture
CPT/HCPCS: 36415; 36600; 71045-TC-FY; 80048; 80053; 82550; 82803; 83735; 83880; 84100; 84484; 85025; 85027; 87070; 87205; 87804; 93005; 93010; 94640; 94660; 97116-GP; 97162-GP; 99284-25

== ENCOUNTER 2021-02-04 13:46 | Inpatient (IN) | payer OTHER, MEDICARE ==
[2021-02-04] MEDS ORDERED: FUROSEMIDE 40 MG/4 ML INJECTABLE VIAL IVPUSH ONE (15:17)
[2021-02-04 15:29] LABS: HEMATOCRIT 17.4 % (32.4-45.2); MCHC 27.2 g/dl (32.0-36.0); MEAN CELL VOLUME 66.7 fl (80-96); MEAN PLT VOLUME 8.1 fl (7.5-11.1); PLATELET COUNT 272 K/MM3 (134-434); RBC 2.61 M/mm3 (3.60-5.2); RDW 23.7 % (11.6-15.6); WHITE BLOOD COUNT 16.8 K/mm3 (4.0-10.0)
[2021-02-04 15:37] LABS: INR 0.98 (0.83-1.09); PROTHROMBIN TIME (PATIENT) 12.1 SEC (9.7-13.0)
[2021-02-04 15:39] LABS: ACTIVATED PTT 23.7 SECONDS (25.2-36.5)
[2021-02-04 15:47] LABS: MCH 18.1 pg (25.7-33.7)
[2021-02-04 15:53] LABS: ALBUMIN 2.9 g/dl (3.4-5.0); BLOOD UREA NITROGEN 26.3 mg/dL (7-18); CALCIUM 7.9 mg/dL (8.5-10.1)
[2021-02-04 15:55] LABS: HEMOGLOBIN 4.7 GM/dL (10.7-15.3)
[2021-02-04 15:57] LABS: CREATININE 0.6 mg/dL (0.55-1.3)
[2021-02-04 15:58] LABS: BILIRUBIN,TOTAL 0.8 mg/dL (0.2-1); TOT PROT 5.2 g/dl (6.4-8.2)
[2021-02-04 16:01] LABS: N-TERMINAL BNP 3674.2 pg/ml (5-125)
[2021-02-04] MEDS ORDERED: FUROSEMIDE 40 MG/4 ML INJECTABLE VIAL ONE (16:14)
[2021-02-04 17:44] LABS: ANISOCYTOSIS 3+; MACROCYTOSIS 0; OVALOCYTE 1+; PLATELET ESTIMATE NORMAL; TEAR DROP CELLS 1+
[2021-02-04] MEDS ORDERED: LIDOCAINE HCL 2% JELLY 10 ML CARTRIDGE UR ONE (19:47)
[2021-02-04] MEDS ORDERED: LIDOCAINE HCL 2% JELLY 10 ML CARTRIDGE ONE (19:49)
[2021-02-04 21:11] LABS: PH,URINE 5.5 (5.0-8.0); URINE APPEARANCE CLEAR; URINE BILIRUBIN NEGATIVE (NEGATIVE); URINE COLOR YELLOW; URINE GLUCOSE (UA) NEGATIVE (NEGATIVE); URINE KETONE NEGATIVE (NEGATIVE); URINE LEUK ESTERASE NEGATIVE (NEGATIVE); URINE NITRITE NEGATIVE (NEGATIVE); URINE PROTEIN NEGATIVE (NEGATIVE); URINE UROBILINOGEN 0.2 mg/dL (0.2-1.0)
[2021-02-04] MEDS ORDERED: ATORVASTATIN CA 80 MG TABLET (FP) ONE (23:12)
[2021-02-04] MEDS: ATORVASTATIN CA 80 MG TABLET (FP) PO SCH (23:23)
[2021-02-05] MEDS ORDERED: ACETAMINOPHEN 325 MG TABLET (FP) ONE (03:10)
[2021-02-05] MEDS: ACETAMINOPHEN 500 MG TABLET (FP) PO PRN (03:13)
[2021-02-05 03:28] LABS: HEMATOCRIT 29.4 % (32.4-45.2); HEMOGLOBIN 9.3 GM/dL (10.7-15.3); MCH 24.3 pg (25.7-33.7); MCHC 31.7 g/dl (32.0-36.0); MEAN CELL VOLUME 76.6 fl (80-96); MEAN PLT VOLUME 8.8 fl (7.5-11.1); PLATELET COUNT 241 K/MM3 (134-434); RBC 3.84 M/mm3 (3.60-5.2); RDW 26.6 % (11.6-15.6); WHITE BLOOD COUNT 14.3 K/mm3 (4.0-10.0)
[2021-02-05 07:17] LABS: BASO % 0.1 % (0-2.0); EOS % 0.2 % (0-4.5); HEMATOCRIT 29.8 % (32.4-45.2); HEMOGLOBIN 9.6 GM/dL (10.7-15.3); LYMPH % 7.3 % (8-40); MCH 24.4 pg (25.7-33.7); MCHC 32.1 g/dl (32.0-36.0); MEAN PLT VOLUME 8.9 fl (7.5-11.1); MONO % 8.3 % (3.8-10.2); NEUT % 84.1 % (42.8-82.8); PLATELET COUNT 235 K/MM3 (134-434); RBC 3.92 M/mm3 (3.60-5.2); RDW 26.3 % (11.6-15.6); WHITE BLOOD COUNT 13.7 K/mm3 (4.0-10.0)
[2021-02-05 07:37] LABS: ALBUMIN 3.1 g/dl (3.4-5.0); CALCIUM 7.9 mg/dL (8.5-10.1)
[2021-02-05 07:38] LABS: BLOOD UREA NITROGEN 17.2 mg/dL (7-18)
[2021-02-05 07:41] LABS: CREATININE 0.6 mg/dL (0.55-1.3)
[2021-02-05 07:42] LABS: BILIRUBIN,TOTAL 2.2 mg/dL (0.2-1); TOT PROT 5.4 g/dl (6.4-8.2)
[2021-02-05] MEDS ORDERED: PATIENT'S OWN MEDICATION (NON-FORMULARY) (Tiotropium Bromide [Spiriva] 18 MCG Cap.W.Dev) PO SCH (10:00)
[2021-02-05] MEDS: PANTOPRAZOLE SODIUM 40 MG VIAL IVPUSH SCH ×2 (11:51→22:13)
[2021-02-05] MEDS: CITALOPRAM HYDROBROMIDE 10 MG TABLET PO SCH (11:51)
[2021-02-05] MEDS: TIOTROPIUM/OLODATEROL HCL (STIOLTO) 4 GM INHALER IH SCH (11:52)
[2021-02-05] MEDS ORDERED: PANTOPRAZOLE SODIUM 40 MG VIAL ONE ×2 (11:54→11:56)
[2021-02-05] MEDS ORDERED: CITALOPRAM HYDROBROMIDE 10 MG TABLET ONE (11:54)
[2021-02-05] MEDS ORDERED: ASPIRIN COATED 81 MG TABLET.EC ONE (12:12)
[2021-02-05] MEDS: ASPIRIN COATED 81 MG TABLET.EC PO SCH (12:16)
[2021-02-05] MEDS ORDERED: FUROSEMIDE 40 MG/4 ML INJECTABLE VIAL IVPUSH SCH (14:00)
[2021-02-05] MEDS: POLYETHYLENE GLYCOL 3350 119 GM BTL PO SCH ×2 (14:30→22:27)
[2021-02-05] MEDS: methylPREDNISolone NA SUCC 40 MG/1 ML VIAL IVPUSH SCH ×2 (14:30→19:52)
[2021-02-05] MEDS: FUROSEMIDE 40 MG/4 ML INJECTABLE VIAL IVPUSH SCH (14:30)
[2021-02-05] MEDS ORDERED: methylPREDNISolone NA SUCC 40 MG/1 ML VIAL ONE (15:16)
[2021-02-05] MEDS ORDERED: FUROSEMIDE 40 MG/4 ML INJECTABLE VIAL ONE (15:16)
[2021-02-05 19:58] LABS: BASO % 0.1 % (0-2.0); HEMOGLOBIN 9.8 GM/dL (10.7-15.3); LYMPH % 1.8 % (8-40); MCH 23.5 pg (25.7-33.7); MCHC 30.5 g/dl (32.0-36.0); MEAN PLT VOLUME 8.4 fl (7.5-11.1); MONO % 0.5 % (3.8-10.2); NEUT % 97.6 % (42.8-82.8); PLATELET COUNT 241 K/MM3 (134-434); RBC 4.15 M/mm3 (3.60-5.2); RDW 25.8 % (11.6-15.6); WHITE BLOOD COUNT 15.9 K/mm3 (4.0-10.0)
[2021-02-05 21:41] LABS: ANISOCYTOSIS 1+
[2021-02-05 21:42] LABS: TARGET CELLS 1+
[2021-02-05 21:43] LABS: OVALOCYTE 1+; PLATELET ESTIMATE NORMAL
[2021-02-05] MEDS: ATORVASTATIN CA 80 MG TABLET (FP) PO SCH (22:13)
[2021-02-06] MEDS: methylPREDNISolone NA SUCC 40 MG/1 ML VIAL IVPUSH SCH ×3 (01:41→17:29)
[2021-02-06] MEDS: POLYETHYLENE GLYCOL 3350 119 GM BTL PO SCH ×3 (05:32→21:51)
[2021-02-06] MEDS: FUROSEMIDE 40 MG/4 ML INJECTABLE VIAL IVPUSH SCH ×2 (05:40→14:07)
[2021-02-06 07:29] LABS: BASO % 0.1 % (0-2.0); HEMATOCRIT 33.2 % (32.4-45.2); HEMOGLOBIN 10.3 GM/dL (10.7-15.3); LYMPH % 1.5 % (8-40); MCHC 30.9 g/dl (32.0-36.0); MEAN CELL VOLUME 77.6 fl (80-96); MEAN PLT VOLUME 8.7 fl (7.5-11.1); MONO % 0.6 % (3.8-10.2); NEUT % 97.8 % (42.8-82.8); PLATELET COUNT 243 K/MM3 (134-434); RBC 4.27 M/mm3 (3.60-5.2); RDW 26.3 % (11.6-15.6); WHITE BLOOD COUNT 13.4 K/mm3 (4.0-10.0)
[2021-02-06 07:35] LABS: HEMATOCRIT 33.1 % (32.4-45.2); HEMOGLOBIN 10.1 GM/dL (10.7-15.3); MCH 23.7 pg (25.7-33.7); MCHC 30.5 g/dl (32.0-36.0); MEAN CELL VOLUME 77.9 fl (80-96); MEAN PLT VOLUME 8.9 fl (7.5-11.1); PLATELET COUNT 247 K/MM3 (134-434); RBC 4.25 M/mm3 (3.60-5.2); RDW 25.6 % (11.6-15.6); RETICULOCYTES 1.23 % (0.5-1.5); WHITE BLOOD COUNT 13.3 K/mm3 (4.0-10.0)
[2021-02-06 07:58] LABS: ALBUMIN 3.3 g/dl (3.4-5.0)
[2021-02-06 07:59] LABS: BLOOD UREA NITROGEN 17.4 mg/dL (7-18)
[2021-02-06 08:00] LABS: BILIRUBIN,TOTAL 1.3 mg/dL (0.2-1); TOT PROT 5.9 g/dl (6.4-8.2)
[2021-02-06 08:01] LABS: CALCIUM 8.6 mg/dL (8.5-10.1)
[2021-02-06 08:02] LABS: CREATININE 0.7 mg/dL (0.55-1.3)
[2021-02-06] MEDS ORDERED: PT OWN MED DRAWER 7, Y5N ONE ×3 (09:06→12:20)
[2021-02-06] MEDS: PANTOPRAZOLE SODIUM 40 MG VIAL IVPUSH SCH ×2 (09:30→21:51)
[2021-02-06] MEDS: ASPIRIN COATED 81 MG TABLET.EC PO SCH (09:31)
[2021-02-06] MEDS ORDERED: POLYETHYLENE GLYCOL 3350 119 GM BTL PO SCH (10:00)
[2021-02-06 10:03] LABS: ANISOCYTOSIS 1+; MACROCYTOSIS 0; OVALOCYTE 1+; PLATELET ESTIMATE NORMAL
[2021-02-06] MEDS: ALBUTEROL SO4 0.083% IH SOL 2.5 MG/3 ML VIAL.NEB. NEB PRN ×3 (10:04→21:30)
[2021-02-06] MEDS: ACETAMINOPHEN 500 MG TABLET (FP) PO PRN (11:07)
[2021-02-06] MEDS ORDERED: IRON SUCROSE INJECTION 100 MG in SODIUM CHLORIDE 95 ML IVPB ONE (13:40)
[2021-02-06] MEDS: SILVER SULFADIAZINE 1% TOP CREAM 50 GM JAR TP SCH (14:07)
[2021-02-06] MEDS: CITALOPRAM HYDROBROMIDE 10 MG TABLET PO SCH (14:08)
[2021-02-06] MEDS: TIOTROPIUM/OLODATEROL HCL (STIOLTO) 4 GM INHALER IH SCH (14:10)
[2021-02-06] MEDS: SENNOSIDES 8.6MG TABLET (FP) PO SCH (21:51)
[2021-02-06] MEDS: ATORVASTATIN CA 80 MG TABLET (FP) PO SCH (21:51)
[2021-02-07] MEDS: methylPREDNISolone NA SUCC 40 MG/1 ML VIAL IVPUSH SCH ×3 (01:12→17:40)
[2021-02-07] MEDS: ALBUTEROL SO4 0.083% IH SOL 2.5 MG/3 ML VIAL.NEB. NEB PRN (04:15)
[2021-02-07 04:39] LABS: ALLENS TEST POSITIVE; ARTERIAL BLD GAS O2 SATURATION 96.5 mmHg (95-98); ARTERIAL BLOOD GAS BASE EXCESS 11.6 mmol/L (-2-2); ARTERIAL BLOOD GAS PO2 92.6 mmHg (80-100); ARTERIAL BLOOD GAS pH 7.358 (7.350-7.450)
[2021-02-07] MEDS: POLYETHYLENE GLYCOL 3350 119 GM BTL PO SCH ×3 (05:32→21:59)
[2021-02-07] MEDS: FUROSEMIDE 40 MG/4 ML INJECTABLE VIAL IVPUSH SCH ×2 (05:35→14:36)
[2021-02-07 07:23] LABS: HEMATOCRIT 29.4 % (32.4-45.2); HEMOGLOBIN 8.9 GM/dL (10.7-15.3); MCH 23.9 pg (25.7-33.7); MCHC 30.4 g/dl (32.0-36.0); MEAN CELL VOLUME 78.6 fl (80-96); MEAN PLT VOLUME 8.8 fl (7.5-11.1); PLATELET COUNT 223 K/MM3 (134-434); RBC 3.74 M/mm3 (3.60-5.2); RDW 27.4 % (11.6-15.6); WHITE BLOOD COUNT 14.2 K/mm3 (4.0-10.0)
[2021-02-07 07:44] LABS: CALCIUM 8.5 mg/dL (8.5-10.1)
[2021-02-07 07:47] LABS: CREATININE 0.6 mg/dL (0.55-1.3)
[2021-02-07] MEDS ORDERED: PT OWN MED DRAWER 7, Y5N ONE (09:36)
[2021-02-07] MEDS: PANTOPRAZOLE SODIUM 40 MG VIAL IVPUSH SCH ×2 (09:46→21:58)
[2021-02-07] MEDS: CITALOPRAM HYDROBROMIDE 10 MG TABLET PO SCH (09:53)
[2021-02-07] MEDS: ASPIRIN COATED 81 MG TABLET.EC PO SCH (09:53)
[2021-02-07] MEDS ORDERED: IRON SUCROSE INJECTION 100 MG in SODIUM CHLORIDE 95 ML IVPB ONE (10:15)
[2021-02-07] MEDS: ALBUTEROL SO4 2.5/IPRATROPIUM 0.5 INH SOL 3 ML VIAL.NEB. NEB SCH ×3 (12:00→20:15)
[2021-02-07 13:39] LABS: HEMATOCRIT 27.6 % (32.4-45.2); HEMOGLOBIN 8.3 GM/dL (10.7-15.3); LYMPH % 4.3 % (8-40); MCH 23.4 pg (25.7-33.7); MEAN CELL VOLUME 78.1 fl (80-96); MEAN PLT VOLUME 8.4 fl (7.5-11.1); MONO % 7.8 % (3.8-10.2); NEUT % 87.9 % (42.8-82.8); PLATELET COUNT 203 K/MM3 (134-434); RBC 3.54 M/mm3 (3.60-5.2); RDW 28.1 % (11.6-15.6); WHITE BLOOD COUNT 12.4 K/mm3 (4.0-10.0)
[2021-02-07] MEDS: TIOTROPIUM/OLODATEROL HCL (STIOLTO) 4 GM INHALER IH SCH (14:11)
[2021-02-07] MEDS: SILVER SULFADIAZINE 1% TOP CREAM 50 GM JAR TP SCH (17:40)
[2021-02-07 18:08] LABS: GLIADIN ANTIBODY IGA 2 units (0-19); GLIADIN ANTIBODY IGG 1 units (0-19); TRANSGLUTAMINASE IGG < 2 U/mL (0-5)
[2021-02-07 21:56] VITALS: BMI 17.2
[2021-02-07] MEDS: SENNOSIDES 8.6MG TABLET (FP) PO SCH (21:58)
[2021-02-07] MEDS: ATORVASTATIN CA 80 MG TABLET (FP) PO SCH (21:58)
[2021-02-08] MEDS: methylPREDNISolone NA SUCC 40 MG/1 ML VIAL IVPUSH SCH ×3 (03:31→17:47)
[2021-02-08] MEDS: POLYETHYLENE GLYCOL 3350 119 GM BTL PO SCH ×3 (05:58→22:50)
[2021-02-08] MEDS: FUROSEMIDE 40 MG/4 ML INJECTABLE VIAL IVPUSH SCH (05:58)
[2021-02-08] MEDS: ALBUTEROL SO4 2.5/IPRATROPIUM 0.5 INH SOL 3 ML VIAL.NEB. NEB SCH ×4 (07:25→20:45)
[2021-02-08 07:28] LABS: HEMATOCRIT 31.5 % (32.4-45.2); HEMOGLOBIN 9.5 GM/dL (10.7-15.3); MCH 24.1 pg (25.7-33.7); MCHC 30.3 g/dl (32.0-36.0); MEAN CELL VOLUME 79.6 fl (80-96); MEAN PLT VOLUME 8.9 fl (7.5-11.1); PLATELET COUNT 237 K/MM3 (134-434); RBC 3.96 M/mm3 (3.60-5.2); RDW 28.6 % (11.6-15.6); WHITE BLOOD COUNT 13.7 K/mm3 (4.0-10.0)
[2021-02-08] MEDS: CITALOPRAM HYDROBROMIDE 10 MG TABLET PO SCH (09:33)
[2021-02-08] MEDS: ASPIRIN COATED 81 MG TABLET.EC PO SCH (09:33)
[2021-02-08] MEDS: SILVER SULFADIAZINE 1% TOP CREAM 50 GM JAR TP SCH (09:33)
[2021-02-08] MEDS: PANTOPRAZOLE SODIUM 40 MG VIAL IVPUSH SCH ×2 (09:33→22:28)
[2021-02-08] MEDS: ATORVASTATIN CA 80 MG TABLET (FP) PO SCH (22:27)
[2021-02-08] MEDS: SENNOSIDES 8.6MG TABLET (FP) PO SCH (22:28)
[2021-02-09] MEDS: methylPREDNISolone NA SUCC 40 MG/1 ML VIAL IVPUSH SCH ×3 (01:02→17:28)
[2021-02-09] MEDS: POLYETHYLENE GLYCOL 3350 119 GM BTL PO SCH ×3 (06:29→22:07)
[2021-02-09] MEDS: ALBUTEROL SO4 2.5/IPRATROPIUM 0.5 INH SOL 3 ML VIAL.NEB. NEB SCH ×4 (07:25→20:07)
[2021-02-09] MEDS ORDERED: PT OWN MED DRAWER 7, Y5N ONE (08:21)
[2021-02-09 08:37] LABS: CHLORIDE 89 mmol/L (98-107); SODIUM 141 mmol/L (136-145)
[2021-02-09 08:41] LABS: ALBUMIN 3.4 g/dl (3.4-5.0)
[2021-02-09 08:42] LABS: CALCIUM 8.9 mg/dL (8.5-10.1)
[2021-02-09 08:43] LABS: GLUCOSE,RANDOM 144 mg/dL (74-106)
[2021-02-09 08:45] LABS: CREATININE 0.8 mg/dL (0.55-1.3); SGOT/AST 17 U/L (15-37); SGPT/ALT 38 U/L (13-61)
[2021-02-09 08:46] LABS: BILIRUBIN,TOTAL 1.7 mg/dL (0.2-1); TOT PROT 5.8 g/dl (6.4-8.2)
[2021-02-09 08:47] LABS: ALK PHOS 74 U/L (45-117); ANION GAP 7 MMOL/L (8-16); CO2 > 45 mmol/L (21-32)
[2021-02-09] MEDS: ASPIRIN COATED 81 MG TABLET.EC PO SCH (09:19)
[2021-02-09] MEDS: CITALOPRAM HYDROBROMIDE 10 MG TABLET PO SCH (09:20)
[2021-02-09] MEDS: SILVER SULFADIAZINE 1% TOP CREAM 50 GM JAR TP SCH (09:23)
[2021-02-09] MEDS: ACETAMINOPHEN 500 MG TABLET (FP) PO PRN (09:23)
[2021-02-09] MEDS: PANTOPRAZOLE SODIUM 40 MG VIAL IVPUSH SCH ×2 (09:24→22:06)
[2021-02-09] MEDS ORDERED: FUROSEMIDE 40 MG TABLET (FP) PO SCH (10:00)
[2021-02-09 10:17] LABS: HEMATOCRIT 32.5 % (32.4-45.2); HEMOGLOBIN 9.7 GM/dL (10.7-15.3); LYMPH % 2.9 % (8-40); MCH 24.1 pg (25.7-33.7); MEAN CELL VOLUME 80.3 fl (80-96); MEAN PLT VOLUME 8.5 fl (7.5-11.1); NEUT % 91.1 % (42.8-82.8); PLATELET COUNT 223 K/MM3 (134-434); RBC 4.04 M/mm3 (3.60-5.2); RDW 29.2 % (11.6-15.6); WHITE BLOOD COUNT 12.3 K/mm3 (4.0-10.0)
[2021-02-09 11:49] LABS: ANISOCYTOSIS 2+; MACROCYTOSIS 0; OVALOCYTE 2+; PLATELET ESTIMATE NORMAL
[2021-02-09] MEDS ORDERED: POTASSIUM CHLORIDE ORAL LIQUID 20 MEQ/15 ML PO ONE (12:09)
[2021-02-09] MEDS: ATORVASTATIN CA 80 MG TABLET (FP) PO SCH (22:06)
[2021-02-09] MEDS: SENNOSIDES 8.6MG TABLET (FP) PO SCH (22:06)
[2021-02-10] MEDS: methylPREDNISolone NA SUCC 40 MG/1 ML VIAL IVPUSH SCH ×3 (03:06→21:42)
[2021-02-10] MEDS: POLYETHYLENE GLYCOL 3350 119 GM BTL PO SCH ×3 (05:32→21:42)
[2021-02-10] MEDS: ALBUTEROL SO4 2.5/IPRATROPIUM 0.5 INH SOL 3 ML VIAL.NEB. NEB SCH ×4 (07:30→19:50)
[2021-02-10 08:05] LABS: CHLORIDE 90 mmol/L (98-107); SODIUM 140 mmol/L (136-145)
[2021-02-10 08:06] LABS: CALCIUM 8.7 mg/dL (8.5-10.1)
[2021-02-10 08:07] LABS: BLOOD UREA NITROGEN 25.7 mg/dL (7-18); GLUCOSE,RANDOM 202 mg/dL (74-106); MAGNESIUM 2.2 mg/dL (1.8-2.4)
[2021-02-10 08:10] LABS: CREATININE 0.8 mg/dL (0.55-1.3)
[2021-02-10 08:13] LABS: ANION GAP 5 MMOL/L (8-16); CO2 > 45 mmol/L (21-32)
[2021-02-10] MEDS ORDERED: PT OWN MED DRAWER 7, Y5N ONE (08:36)
[2021-02-10] MEDS: CITALOPRAM HYDROBROMIDE 10 MG TABLET PO SCH (09:18)
[2021-02-10] MEDS: ASPIRIN COATED 81 MG TABLET.EC PO SCH (09:18)
[2021-02-10] MEDS: PANTOPRAZOLE SODIUM 40 MG VIAL IVPUSH SCH ×2 (09:19→21:41)
[2021-02-10] MEDS: FUROSEMIDE 40 MG TABLET (FP) PO SCH (09:19)
[2021-02-10] MEDS: SILVER SULFADIAZINE 1% TOP CREAM 50 GM JAR TP SCH (09:19)
[2021-02-10] MEDS: ALPRAZolam 1 MG TABLET PO PRN (17:03)
[2021-02-10] MEDS: ATORVASTATIN CA 80 MG TABLET (FP) PO SCH (21:41)
[2021-02-10] MEDS: SENNOSIDES 8.6MG TABLET (FP) PO SCH (21:42)
[2021-02-11] MEDS: POLYETHYLENE GLYCOL 3350 119 GM BTL PO SCH ×3 (05:07→21:51)
[2021-02-11] MEDS: ALBUTEROL SO4 2.5/IPRATROPIUM 0.5 INH SOL 3 ML VIAL.NEB. NEB SCH ×4 (07:41→20:57)
[2021-02-11 07:42] LABS: CHLORIDE 87 mmol/L (98-107); SODIUM 137 mmol/L (136-145)
[2021-02-11 07:50] LABS: CALCIUM 8.7 mg/dL (8.5-10.1)
[2021-02-11 07:51] LABS: GLUCOSE,RANDOM 124 mg/dL (74-106)
[2021-02-11 07:52] LABS: BLOOD UREA NITROGEN 25.8 mg/dL (7-18)
[2021-02-11 07:53] LABS: SGPT/ALT 48 U/L (13-61)
[2021-02-11 07:54] LABS: BILIRUBIN,TOTAL 1.4 mg/dL (0.2-1); CREATININE 0.7 mg/dL (0.55-1.3); SGOT/AST 20 U/L (15-37)
[2021-02-11 07:55] LABS: TOT PROT 5.4 g/dl (6.4-8.2)
[2021-02-11 07:56] LABS: ALK PHOS 72 U/L (45-117)
[2021-02-11 08:05] LABS: ANION GAP 6 MMOL/L (8-16); CO2 > 45 mmol/L (21-32)
[2021-02-11 08:51] LABS: HEMATOCRIT 32.1 % (32.4-45.2); HEMOGLOBIN 9.8 GM/dL (10.7-15.3); LYMPH % 2.9 % (8-40); MCH 24.6 pg (25.7-33.7); MCHC 30.4 g/dl (32.0-36.0); MEAN CELL VOLUME 80.9 fl (80-96); MEAN PLT VOLUME 8.5 fl (7.5-11.1); MONO % 2.5 % (3.8-10.2); NEUT % 94.6 % (42.8-82.8); PLATELET COUNT 216 K/MM3 (134-434); RBC 3.96 M/mm3 (3.60-5.2); RDW 30.1 % (11.6-15.6); WHITE BLOOD COUNT 18.9 K/mm3 (4.0-10.0)
[2021-02-11] MEDS ORDERED: IRON SUCROSE INJECTION 100 MG in SODIUM CHLORIDE 95 ML IVPB ONE (08:55)
[2021-02-11] MEDS: ALPRAZolam 1 MG TABLET PO PRN (10:04)
[2021-02-11] MEDS: PANTOPRAZOLE SODIUM 40 MG VIAL IVPUSH SCH (10:05)
[2021-02-11] MEDS: CITALOPRAM HYDROBROMIDE 20 MG TABLET PO SCH (10:05)
[2021-02-11] MEDS: ASPIRIN COATED 81 MG TABLET.EC PO SCH (10:05)
[2021-02-11] MEDS: FUROSEMIDE 40 MG TABLET (FP) PO SCH (10:05)
[2021-02-11] MEDS: methylPREDNISolone NA SUCC 40 MG/1 ML VIAL IVPUSH SCH ×2 (10:06→21:52)
[2021-02-11] MEDS: SILVER SULFADIAZINE 1% TOP CREAM 50 GM JAR TP SCH (10:06)
[2021-02-11 11:50] LABS: ANISOCYTOSIS 1+; MACROCYTOSIS 0; PLATELET ESTIMATE NORMAL
[2021-02-11] MEDS: POVIDONE-IODINE 10% SOLN 118 ML BOTTLE TP SCH (14:14)
[2021-02-11] MEDS: SENNOSIDES 8.6MG TABLET (FP) PO SCH (21:50)
[2021-02-11] MEDS: PANTOPRAZOLE 40 MG TABLET PO SCH (21:51)
[2021-02-11] MEDS: ATORVASTATIN CA 80 MG TABLET (FP) PO SCH (21:51)
[2021-02-11] MEDS: ALPRAZolam 0.25 MG TABLET PO PRN (21:51)
[2021-02-12] MEDS: POLYETHYLENE GLYCOL 3350 119 GM BTL PO SCH ×3 (06:39→22:02)
[2021-02-12] MEDS: AMINO ACIDS/PROTEIN HYDROLYS 30 ML LIQUID.PKT PO SCH (08:05)
[2021-02-12] MEDS: ALBUTEROL SO4 2.5/IPRATROPIUM 0.5 INH SOL 3 ML VIAL.NEB. NEB SCH ×4 (08:14→20:03)
[2021-02-12] MEDS ORDERED: PT OWN MED DRAWER 7, Y5N ONE (08:58)
[2021-02-12] MEDS: POVIDONE-IODINE 10% SOLN 118 ML BOTTLE TP SCH (09:38)
[2021-02-12] MEDS: CITALOPRAM HYDROBROMIDE 20 MG TABLET PO SCH (09:38)
[2021-02-12] MEDS: ASPIRIN COATED 81 MG TABLET.EC PO SCH (09:39)
[2021-02-12] MEDS: methylPREDNISolone NA SUCC 40 MG/1 ML VIAL IVPUSH SCH ×2 (09:39→22:00)
[2021-02-12] MEDS: FUROSEMIDE 40 MG TABLET (FP) PO SCH (09:39)
[2021-02-12] MEDS: PANTOPRAZOLE 40 MG TABLET PO SCH ×2 (09:41→22:00)
[2021-02-12] MEDS: ALPRAZolam 0.25 MG TABLET PO PRN ×2 (10:55→22:01)
[2021-02-12] MEDS ORDERED: ALBUTEROL SO4 0.083% IH SOL 2.5 MG/3 ML VIAL.NEB. NEB PRN (15:04)
[2021-02-12] MEDS ORDERED: ACETAMINOPHEN 500 MG TABLET (FP) PO PRN (15:04)
[2021-02-12] MEDS ORDERED: IRON SUCROSE INJECTION 100 MG in SODIUM CHLORIDE 95 ML IVPB ONE (15:12)
[2021-02-12] MEDS: SENNOSIDES 8.6MG TABLET (FP) PO SCH (22:00)
[2021-02-12] MEDS: ATORVASTATIN CA 80 MG TABLET (FP) PO SCH (22:00)
[2021-02-13] MEDS: POLYETHYLENE GLYCOL 3350 119 GM BTL PO SCH ×3 (06:13→21:25)
[2021-02-13] MEDS: ALBUTEROL SO4 2.5/IPRATROPIUM 0.5 INH SOL 3 ML VIAL.NEB. NEB SCH ×4 (08:00→20:54)
[2021-02-13] MEDS: AMINO ACIDS/PROTEIN HYDROLYS 30 ML LIQUID.PKT PO SCH (08:05)
[2021-02-13] MEDS ORDERED: ASPIRIN COATED 81 MG TABLET.EC PO SCH (10:00)
[2021-02-13] MEDS ORDERED: FUROSEMIDE 40 MG TABLET (FP) PO SCH (10:00)
[2021-02-13] MEDS ORDERED: POVIDONE-IODINE 10% SOLN 118 ML BOTTLE TP SCH (10:00)
[2021-02-13] MEDS ORDERED: CITALOPRAM HYDROBROMIDE 20 MG TABLET PO SCH (10:00)
[2021-02-13] MEDS ORDERED: COLLAGENASE CLOSTRIDIUM HIST. 30 GRAMS TUBE TP SCH (10:00)
[2021-02-13] MEDS: methylPREDNISolone NA SUCC 40 MG/1 ML VIAL IVPUSH SCH ×3 (10:33→21:37)
[2021-02-13] MEDS: PANTOPRAZOLE 40 MG TABLET PO SCH ×2 (10:34→21:25)
[2021-02-13] MEDS: ALPRAZolam 0.25 MG TABLET PO PRN (11:56)
[2021-02-13] MEDS ORDERED: IRON SUCROSE INJECTION 100 MG in SODIUM CHLORIDE 95 ML IVPB ONE (14:35)
[2021-02-13] MEDS: ATORVASTATIN CA 80 MG TABLET (FP) PO SCH (21:25)
[2021-02-13] MEDS: SENNOSIDES 8.6MG TABLET (FP) PO SCH (21:25)
[2021-02-13 21:37] VITALS: BP 137/68; PULSE 71; TEMP 98.1
== END 2021-02-13 21:58 | DRG 811 ==
LOC: JER 13:46 → JERBED 20:57 → J4W 02-05 20:29 → J6S 02-12 13:58
PROVIDERS: ADMIT Internal Medicine; ATTEND Family Medicine
PROC: 30233N1 Transfusion of Nonautologous Red Blood Cells into Peripheral Vein, Percutaneous Approach (ICD-10-PCS; 2021-02-04)
PROC: 0HBRXZZ Excision of Toe Nail, External Approach (ICD-10-PCS; principal; 2021-02-10)
PROC: 0HBRXZZ Excision of Toe Nail, External Approach (ICD-10-PCS; 2021-02-10)
PROC: 0HBRXZZ Excision of Toe Nail, External Approach (ICD-10-PCS; 2021-02-10)
PROC: 0HBRXZZ Excision of Toe Nail, External Approach (ICD-10-PCS; 2021-02-10)
PROC: 0HBRXZZ Excision of Toe Nail, External Approach (ICD-10-PCS; 2021-02-10)
PROC: 0HBRXZZ Excision of Toe Nail, External Approach (ICD-10-PCS; 2021-02-10)
PROC: 0HBRXZZ Excision of Toe Nail, External Approach (ICD-10-PCS; 2021-02-10)
PROC: 0HBRXZZ Excision of Toe Nail, External Approach (ICD-10-PCS; 2021-02-10)
PROC: 0HBRXZZ Excision of Toe Nail, External Approach (ICD-10-PCS; 2021-02-10)
PROC: 0HBRXZZ Excision of Toe Nail, External Approach (ICD-10-PCS; 2021-02-10)
DX: D50.9 Iron deficiency anemia, unspecified (principal); J96.21 Acute and chronic respiratory failure with hypoxia; J96.22 Acute and chronic respiratory failure with hypercapnia; I50.33 Acute on chronic diastolic (congestive) heart failure; I13.0 Hypertensive heart and chronic kidney disease with heart failure and stage 1 through stage 4 chronic kidney disease, or unspecified chronic kidney disease; J44.1 Chronic obstructive pulmonary disease with (acute) exacerbation; R64 Cachexia; K92.2 Gastrointestinal hemorrhage, unspecified; L03.116 Cellulitis of left lower limb; L97.508 Non-pressure chronic ulcer of other part of unspecified foot with other specified severity; I24.8 Other forms of acute ischemic heart disease; E44.0 Moderate protein-calorie malnutrition; Z68.1 Body mass index [BMI] 19.9 or less, adult; J44.0 Chronic obstructive pulmonary disease with (acute) lower respiratory infection; I71.4 Abdominal aortic aneurysm, without rupture; B35.1 Tinea unguium; R77.8 Other specified abnormalities of plasma proteins; I25.10 Atherosclerotic heart disease of native coronary artery without angina pectoris; F17.210 Nicotine dependence, cigarettes, uncomplicated; I71.2 Thoracic aortic aneurysm, without rupture; R60.0 Localized edema; N18.2 Chronic kidney disease, stage 2 (mild); K57.90 Diverticulosis of intestine, part unspecified, without perforation or abscess without bleeding; I25.2 Old myocardial infarction; I10 Essential (primary) hypertension; R73.03 Prediabetes; K59.00 Constipation, unspecified; J44.9 Chronic obstructive pulmonary disease, unspecified; Z95.5 Presence of coronary angioplasty implant and graft; Z99.81 Dependence on supplemental oxygen; Z85.51 Personal history of malignant neoplasm of bladder; Z86.010 Personal history of colon polyps
CPT/HCPCS: 36415; 36430; 36600; 70450-TC; 71045-TC-FY; 71250-TC; 72125-TC; 73562-TC-RT-FY; 73630-TC-LT; 74177-TC; 80048; 80053; 81003; 82272; 82378; 82550; 82607; 82728; 82784; 82803; 83516; 83540; 83550; 83735; 83880; 84439; 84443; 84484; 85025; 85027; 85045; 85610; 85730; 86850; 86900; 86901; 86922; 87070; 87086; 87186; 87205; 87804; 93005; 93010; 93306-TC; 94640; 94660; 97162-GP; 99285-25; C9803; J1756; J3535; P9058; Q9967; U0003; U0005

== ENCOUNTER 2021-05-16 21:31 | Inpatient (IN) | payer OTHER, MEDICARE ==
[2021-05-16 21:47] VITALS: BMI 15.6
[2021-05-16] MEDS ORDERED: SODIUM CHLORIDE 1,089 ML IV ONE (22:00)
[2021-05-16] MEDS ORDERED: ALBUTEROL SO4 2.5/IPRATROPIUM 0.5 INH SOL 3 ML VIAL.NEB. NEB ONE ×2 (22:22→22:34)
[2021-05-16] MEDS ORDERED: VANCOMYCIN 1 GM in D5W (PRE-DOCKED) 1,000 MG/250 ML IVPB ONE (22:38)
[2021-05-16] MEDS ORDERED: PIPERACILLIN/TAZOB 4.5 GM 4.5 GM in DEXTROSE 5%-WATER 100 ML IVPB ONE (22:38)
[2021-05-16] MEDS ORDERED: VANCOMYCIN 1 GRAM (PRE-DOCKED) 1,000 MG/250 ML BAG IVPB ONE (22:46)
[2021-05-16 22:52] LABS: BASO % 0.5 % (0-2.0); HEMATOCRIT 32.1 % (32.4-45.2); HEMOGLOBIN 9.8 GM/dL (10.7-15.3); LYMPH % 3.3 % (8-40); MCH 25.3 pg (25.7-33.7); MCHC 30.5 g/dl (32.0-36.0); MEAN PLT VOLUME 7.2 fl (7.5-11.1); MONO % 3.3 % (3.8-10.2); NEUT % 92.9 % (42.8-82.8); PLATELET COUNT 222 10^3/uL (134-434); RBC 3.88 M/mm3 (3.60-5.2); WHITE BLOOD COUNT 12.9 K/mm3 (4.0-10.0)
[2021-05-16 23:03] LABS: INR 0.85 (0.83-1.09); PROTHROMBIN TIME (PATIENT) 10.5 SEC (9.7-13.0)
[2021-05-16 23:06] LABS: ACTIVATED PTT 23.1 SECONDS (25.2-36.5)
[2021-05-16 23:21] LABS: CALCIUM 8.2 mg/dL (8.5-10.1)
[2021-05-16 23:22] LABS: BLOOD UREA NITROGEN 27.4 mg/dL (7-18)
[2021-05-16 23:25] LABS: CREATININE 0.8 mg/dL (0.55-1.3)
[2021-05-16 23:26] LABS: ANISOCYTOSIS 2+; BILIRUBIN,TOTAL 0.7 mg/dL (0.2-1); MACROCYTOSIS 0; OVALOCYTE 1+; PLATELET ESTIMATE NORMAL; TARGET CELLS 1+; TOT PROT 5.6 g/dl (6.4-8.2)
[2021-05-16 23:27] LABS: LACTIC ACID 2.4 mmol/L (0.4-2.0)
[2021-05-16] MEDS ORDERED: PIPERACILLIN/TAZOB 4.5 GM 4.5 GM/100 ML BAG IVPB ONE (23:42)
[2021-05-16] MEDS ORDERED: POTASSIUM CHLORIDE ORAL LIQUID 20 MEQ/15 ML PO ONE (23:56)
[2021-05-17] MEDS ORDERED: POTASSIUM CHLORIDE ORAL LIQUID 20 MEQ/15 ML ONE (00:01)
[2021-05-17 02:51] LABS: LACTIC ACID 2.6 mmol/L (0.4-2.0)
[2021-05-17] MEDS ORDERED: methylPREDNISolone NA SUCC 125 MG/2 ML VIAL IVPUSH ONE (02:58)
[2021-05-17] MEDS ORDERED: methylPREDNISolone NA SUCC 125 MG/2 ML VIAL ONE (03:05)
[2021-05-17 08:11] LABS: HEMATOCRIT 30.5 % (32.4-45.2); HEMOGLOBIN 9.4 GM/dL (10.7-15.3); LYMPH % 0.9 % (8-40); MCH 25.6 pg (25.7-33.7); MCHC 30.6 g/dl (32.0-36.0); MEAN CELL VOLUME 83.5 fl (80-96); MEAN PLT VOLUME 7.9 fl (7.5-11.1); MONO % 0.6 % (3.8-10.2); NEUT % 98.5 % (42.8-82.8); PLATELET COUNT 215 10^3/uL (134-434); RBC 3.66 M/mm3 (3.60-5.2); RDW 18.4 % (11.6-15.6); WHITE BLOOD COUNT 12.6 K/mm3 (4.0-10.0)
[2021-05-17 08:21] LABS: ALBUMIN 2.9 g/dl (3.4-5.0); CALCIUM 7.8 mg/dL (8.5-10.1)
[2021-05-17 08:25] LABS: CREATININE 0.6 mg/dL (0.55-1.3)
[2021-05-17 08:26] LABS: BILIRUBIN,TOTAL 0.5 mg/dL (0.2-1); TOT PROT 5.3 g/dl (6.4-8.2)
[2021-05-17] MEDS ORDERED: DEXTROSE 5%-WATER - 50 ML IVPB ONE ×2 (10:39→18:03)
[2021-05-17] MEDS ORDERED: PIPERACILLIN/TAZOBACTAM 3.375 GM VIAL IVPB ONE ×2 (10:39→18:03)
[2021-05-17 10:46] LABS: ANISOCYTOSIS 1+; MACROCYTOSIS 0; OVALOCYTE 1+; PLATELET ESTIMATE NORMAL
[2021-05-17] MEDS: SODIUM CHLORIDE 0.45%/POT 20 MEQ/1,000 ML INFUS.BAG IV SCH (10:52)
[2021-05-17] MEDS: PANTOPRAZOLE 40 MG TABLET PO SCH (10:53)
[2021-05-17] MEDS: methylPREDNISolone NA SUCC 40 MG/1 ML VIAL IVPUSH SCH ×3 (10:53→21:23)
[2021-05-17] MEDS: amLODIPine BESYLATE 5 MG TABLET (FP) PO SCH (10:53)
[2021-05-17] MEDS: ESCITALOPRAM OXALATE 20 MG TABLET PO SCH (10:53)
[2021-05-17] MEDS: busPIRone HCL 5 MG TABLET PO SCH ×2 (10:53→21:23)
[2021-05-17] MEDS: PIPERACILLIN/TAZOB 3.375 GM 3.375 GM in DEXTROSE 5%-WATER - 50 ML IVPB SCH ×2 (10:55→18:12)
[2021-05-17] MEDS: FUROSEMIDE 40 MG/4 ML INJECTABLE VIAL IVPUSH SCH (12:49)
[2021-05-17] MEDS: AMINO ACIDS/PROTEIN HYDROLYS 30 ML LIQUID.PKT PO SCH (18:11)
[2021-05-17 19:55] LABS: MAGNESIUM 2.1 mg/dL (1.8-2.4)
[2021-05-17 20:21] LABS: LACTIC ACID 3.8 mmol/L (0.4-2.0)
[2021-05-17] MEDS: ALBUTEROL SO4 2.5/IPRATROPIUM 0.5 INH SOL 3 ML VIAL.NEB. NEB PRN (20:25)
[2021-05-17] MEDS ORDERED: ALPRAZolam 0.25 MG TABLET PO PRN (21:39)
[2021-05-17] MEDS ORDERED: VANCOMYCIN 500 MG in DEXTROSE 5%-WATER - 100 ML IVPB SCH (23:00)
[2021-05-18] MEDS ORDERED: PIPERACILLIN/TAZOBACTAM 3.375 GM VIAL IVPB ONE ×3 (01:09→16:54)
[2021-05-18] MEDS: PIPERACILLIN/TAZOB 3.375 GM 3.375 GM in DEXTROSE 5%-WATER - 50 ML IVPB SCH ×3 (01:24→17:18)
[2021-05-18] MEDS: methylPREDNISolone NA SUCC 40 MG/1 ML VIAL IVPUSH SCH ×4 (03:03→20:43)
[2021-05-18 05:33] LABS: PH,URINE 7.5 (5.0-8.0); URINE APPEARANCE CLEAR; URINE BILIRUBIN NEGATIVE (NEGATIVE); URINE COLOR YELLOW; URINE GLUCOSE (UA) TRACE (NEGATIVE); URINE KETONE NEGATIVE (NEGATIVE); URINE LEUK ESTERASE NEGATIVE (NEGATIVE); URINE NITRITE NEGATIVE (NEGATIVE); URINE PROTEIN NEGATIVE (NEGATIVE); URINE UROBILINOGEN 0.2 mg/dL (0.2-1.0)
[2021-05-18] MEDS: ALBUTEROL SO4 2.5/IPRATROPIUM 0.5 INH SOL 3 ML VIAL.NEB. NEB PRN (06:33)
[2021-05-18 07:52] LABS: BASO % 0.2 % (0-2.0); HEMATOCRIT 31.1 % (32.4-45.2); HEMOGLOBIN 9.7 GM/dL (10.7-15.3); LYMPH % 1.1 % (8-40); MCH 25.4 pg (25.7-33.7); MCHC 31.1 g/dl (32.0-36.0); MEAN CELL VOLUME 81.7 fl (80-96); MEAN PLT VOLUME 7.6 fl (7.5-11.1); MONO % 1.7 % (3.8-10.2); PLATELET COUNT 215 10^3/uL (134-434); RDW 18.3 % (11.6-15.6); WHITE BLOOD COUNT 13.5 K/mm3 (4.0-10.0)
[2021-05-18 08:07] LABS: CALCIUM 8.7 mg/dL (8.5-10.1)
[2021-05-18 08:08] LABS: ALBUMIN 3.1 g/dl (3.4-5.0); BLOOD UREA NITROGEN 24.8 mg/dL (7-18)
[2021-05-18 08:11] LABS: CREATININE 0.6 mg/dL (0.55-1.3)
[2021-05-18 08:12] LABS: BILIRUBIN,TOTAL 0.6 mg/dL (0.2-1); TOT PROT 5.8 g/dl (6.4-8.2)
[2021-05-18] MEDS: AMINO ACIDS/PROTEIN HYDROLYS 30 ML LIQUID.PKT PO SCH ×2 (08:36→16:46)
[2021-05-18] MEDS: SODIUM CHLORIDE 0.45%/POT 20 MEQ/1,000 ML INFUS.BAG IV SCH (08:42)
[2021-05-18] MEDS ORDERED: DEXTROSE 5%-WATER - 50 ML IVPB ONE ×2 (09:36→16:55)
[2021-05-18] MEDS ORDERED: PIPERACILLIN/TAZOB 3.375 GM 3.375 GM in DEXTROSE 5%-WATER - 50 ML IVPB SCH (10:00)
[2021-05-18] MEDS: MULTIVITAMINS (DAILY MVI) TABLET (FP) PO SCH (10:01)
[2021-05-18] MEDS: ESCITALOPRAM OXALATE 20 MG TABLET PO SCH (10:01)
[2021-05-18] MEDS: amLODIPine BESYLATE 5 MG TABLET (FP) PO SCH (10:01)
[2021-05-18] MEDS: ASPIRIN COATED 81 MG TABLET.EC PO SCH (10:01)
[2021-05-18] MEDS: busPIRone HCL 5 MG TABLET PO SCH ×2 (10:01→21:22)
[2021-05-18] MEDS: PANTOPRAZOLE 40 MG TABLET PO SCH (10:01)
[2021-05-18] MEDS: FUROSEMIDE 40 MG/4 ML INJECTABLE VIAL IVPUSH SCH (10:02)
[2021-05-18 10:48] LABS: ANISOCYTOSIS 0; MACROCYTOSIS 0; PLATELET ESTIMATE NORMAL
[2021-05-18] MEDS: ALBUTEROL SO4 2.5/IPRATROPIUM 0.5 INH SOL 3 ML VIAL.NEB. NEB SCH ×2 (15:00→21:02)
[2021-05-18] MEDS ORDERED: FUROSEMIDE 40 MG/4 ML INJECTABLE VIAL IVPUSH ONE (15:00)
[2021-05-18] MEDS ORDERED: VANCOMYCIN 500 MG in DEXTROSE 5%-WATER - 100 ML IVPB SCH (23:00)
[2021-05-19] MEDS ORDERED: DEXTROSE 5%-WATER - 50 ML IVPB ONE ×3 (01:42→18:13)
[2021-05-19] MEDS ORDERED: PIPERACILLIN/TAZOBACTAM 3.375 GM VIAL IVPB ONE ×3 (01:42→18:13)
[2021-05-19] MEDS: PIPERACILLIN/TAZOB 3.375 GM 3.375 GM in DEXTROSE 5%-WATER - 50 ML IVPB SCH ×3 (01:47→18:18)
[2021-05-19] MEDS: methylPREDNISolone NA SUCC 40 MG/1 ML VIAL IVPUSH SCH ×3 (02:26→22:28)
[2021-05-19] MEDS: ALBUTEROL SO4 2.5/IPRATROPIUM 0.5 INH SOL 3 ML VIAL.NEB. NEB SCH ×3 (05:22→20:00)
[2021-05-19 07:54] LABS: BLOOD UREA NITROGEN 25.1 mg/dL (7-18); CALCIUM 9.1 mg/dL (8.5-10.1); MAGNESIUM 2.2 mg/dL (1.8-2.4)
[2021-05-19 07:58] LABS: CREATININE 0.7 mg/dL (0.55-1.3)
[2021-05-19] MEDS: AMINO ACIDS/PROTEIN HYDROLYS 30 ML LIQUID.PKT PO SCH ×2 (09:00→17:34)
[2021-05-19] MEDS: FUROSEMIDE 40 MG/4 ML INJECTABLE VIAL IVPUSH SCH (10:00)
[2021-05-19] MEDS: MULTIVITAMINS (DAILY MVI) TABLET (FP) PO SCH (10:00)
[2021-05-19] MEDS: ASPIRIN COATED 81 MG TABLET.EC PO SCH (10:00)
[2021-05-19] MEDS: ESCITALOPRAM OXALATE 20 MG TABLET PO SCH (10:00)
[2021-05-19] MEDS: SODIUM CHLORIDE 0.45%/POT 20 MEQ/1,000 ML INFUS.BAG IV SCH (10:01)
[2021-05-19] MEDS: amLODIPine BESYLATE 5 MG TABLET (FP) PO SCH (10:01)
[2021-05-19] MEDS: busPIRone HCL 5 MG TABLET PO SCH ×2 (10:01→22:07)
[2021-05-19] MEDS: PANTOPRAZOLE 40 MG TABLET PO SCH (10:01)
[2021-05-19] MEDS ORDERED: POTASSIUM CHLORIDE TABS 10 MEQ TABLET.ER (FP) PO ONE (12:24)
[2021-05-20] MEDS ORDERED: DEXTROSE 5%-WATER - 50 ML IVPB ONE ×2 (00:51→16:51)
[2021-05-20] MEDS ORDERED: PIPERACILLIN/TAZOBACTAM 3.375 GM VIAL IVPB ONE ×3 (00:51→16:51)
[2021-05-20] MEDS: PIPERACILLIN/TAZOB 3.375 GM 3.375 GM in DEXTROSE 5%-WATER - 50 ML IVPB SCH ×3 (02:54→17:26)
[2021-05-20] MEDS: ALBUTEROL SO4 2.5/IPRATROPIUM 0.5 INH SOL 3 ML VIAL.NEB. NEB SCH ×3 (07:37→20:17)
[2021-05-20] MEDS: AMINO ACIDS/PROTEIN HYDROLYS 30 ML LIQUID.PKT PO SCH ×2 (08:12→17:31)
[2021-05-20 08:25] LABS: BASO % 0.1 % (0-2.0); HEMATOCRIT 33.1 % (32.4-45.2); HEMOGLOBIN 10.2 GM/dL (10.7-15.3); LYMPH % 1.4 % (8-40); MCH 25.4 pg (25.7-33.7); MCHC 30.8 g/dl (32.0-36.0); MEAN CELL VOLUME 82.4 fl (80-96); MEAN PLT VOLUME 7.9 fl (7.5-11.1); MONO % 4.2 % (3.8-10.2); NEUT % 94.3 % (42.8-82.8); PLATELET COUNT 268 10^3/uL (134-434); RBC 4.01 M/mm3 (3.60-5.2); RDW 18.9 % (11.6-15.6); WHITE BLOOD COUNT 15.9 K/mm3 (4.0-10.0)
[2021-05-20 09:07] LABS: CALCIUM 8.9 mg/dL (8.5-10.1)
[2021-05-20] MEDS ORDERED: POTASSIUM CHLORIDE TABS 20 MEQ TABLET.ER (FP) PO ONE (09:07)
[2021-05-20 09:09] LABS: ALBUMIN 3.1 g/dl (3.4-5.0); BLOOD UREA NITROGEN 30.9 mg/dL (7-18)
[2021-05-20 09:10] LABS: CREATININE 0.8 mg/dL (0.55-1.3)
[2021-05-20 09:12] LABS: ANISOCYTOSIS 0; MACROCYTOSIS 0; OVALOCYTE 1+; PLATELET ESTIMATE NORMAL
[2021-05-20 09:16] LABS: TOT PROT 5.7 g/dl (6.4-8.2)
[2021-05-20] MEDS: methylPREDNISolone NA SUCC 40 MG/1 ML VIAL IVPUSH SCH ×2 (10:11→21:46)
[2021-05-20] MEDS: MULTIVITAMINS (DAILY MVI) TABLET (FP) PO SCH (10:12)
[2021-05-20] MEDS: FUROSEMIDE 40 MG/4 ML INJECTABLE VIAL IVPUSH SCH (10:12)
[2021-05-20] MEDS: busPIRone HCL 5 MG TABLET PO SCH ×2 (10:12→21:46)
[2021-05-20] MEDS: ASPIRIN COATED 81 MG TABLET.EC PO SCH (10:12)
[2021-05-20] MEDS: amLODIPine BESYLATE 5 MG TABLET (FP) PO SCH (10:12)
[2021-05-20] MEDS: ESCITALOPRAM OXALATE 20 MG TABLET PO SCH (10:12)
[2021-05-20] MEDS: PANTOPRAZOLE 40 MG TABLET PO SCH (10:12)
[2021-05-20] MEDS: ALPRAZolam 0.25 MG TABLET PO PRN ×2 (11:25→18:47)
[2021-05-20] MEDS: ALBUTEROL SO4 0.083% IH SOL 2.5 MG/3 ML VIAL.NEB. NEB PRN (11:34)
[2021-05-20] MEDS ORDERED: ACETAMINOPHEN 325 MG TABLET (FP) ONE (18:48)
[2021-05-20] MEDS ORDERED: ACETAMINOPHEN 325 MG TABLET (FP) PO PRN (18:55)
[2021-05-21] MEDS ORDERED: PIPERACILLIN/TAZOBACTAM 3.375 GM VIAL IVPB ONE ×2 (01:03→09:35)
[2021-05-21] MEDS ORDERED: DEXTROSE 5%-WATER - 50 ML IVPB ONE ×2 (01:03→09:36)
[2021-05-21] MEDS: PIPERACILLIN/TAZOB 3.375 GM 3.375 GM in DEXTROSE 5%-WATER - 50 ML IVPB SCH ×2 (01:05→10:38)
[2021-05-21] MEDS: ALBUTEROL SO4 2.5/IPRATROPIUM 0.5 INH SOL 3 ML VIAL.NEB. NEB SCH ×3 (07:40→20:15)
[2021-05-21] MEDS: AMINO ACIDS/PROTEIN HYDROLYS 30 ML LIQUID.PKT PO SCH ×2 (08:30→17:27)
[2021-05-21] MEDS: ALPRAZolam 0.25 MG TABLET PO PRN (08:31)
[2021-05-21] MEDS: FUROSEMIDE 40 MG/4 ML INJECTABLE VIAL IVPUSH SCH (10:37)
[2021-05-21] MEDS: PANTOPRAZOLE 40 MG TABLET PO SCH (10:37)
[2021-05-21] MEDS: busPIRone HCL 5 MG TABLET PO SCH ×3 (10:37→21:43)
[2021-05-21] MEDS: MULTIVITAMINS (DAILY MVI) TABLET (FP) PO SCH (10:37)
[2021-05-21] MEDS: amLODIPine BESYLATE 5 MG TABLET (FP) PO SCH (10:37)
[2021-05-21] MEDS: ASPIRIN COATED 81 MG TABLET.EC PO SCH (10:37)
[2021-05-21] MEDS: ESCITALOPRAM OXALATE 20 MG TABLET PO SCH (10:37)
[2021-05-21] MEDS: methylPREDNISolone NA SUCC 40 MG/1 ML VIAL IVPUSH SCH (10:38)
[2021-05-21] MEDS: POTASSIUM CHLORIDE TABS 10 MEQ TABLET.ER (FP) PO SCH ×2 (12:12→21:42)
[2021-05-21] MEDS: predniSONE 10 MG TABLET (UD) PO SCH (21:43)
[2021-05-21] MEDS: CEFUROXIME AXETIL 250 MG TABLET PO SCH (21:43)
[2021-05-22] MEDS: ALBUTEROL SO4 2.5/IPRATROPIUM 0.5 INH SOL 3 ML VIAL.NEB. NEB SCH ×3 (07:45→20:11)
[2021-05-22] MEDS: PANTOPRAZOLE 40 MG TABLET PO SCH (10:05)
[2021-05-22] MEDS: CEFUROXIME AXETIL 250 MG TABLET PO SCH ×2 (10:06→21:30)
[2021-05-22] MEDS: ASPIRIN COATED 81 MG TABLET.EC PO SCH (10:06)
[2021-05-22] MEDS: POTASSIUM CHLORIDE TABS 10 MEQ TABLET.ER (FP) PO SCH ×2 (10:06→21:30)
[2021-05-22] MEDS: predniSONE 10 MG TABLET (UD) PO SCH ×2 (10:06→21:29)
[2021-05-22] MEDS: amLODIPine BESYLATE 5 MG TABLET (FP) PO SCH (10:06)
[2021-05-22] MEDS: MULTIVITAMINS (DAILY MVI) TABLET (FP) PO SCH (10:06)
[2021-05-22] MEDS: FUROSEMIDE 20 MG TABLET (FP) PO SCH (10:06)
[2021-05-22] MEDS: ESCITALOPRAM OXALATE 20 MG TABLET PO SCH (10:06)
[2021-05-22] MEDS: AMINO ACIDS/PROTEIN HYDROLYS 30 ML LIQUID.PKT PO SCH ×2 (10:07→17:48)
[2021-05-22] MEDS: busPIRone HCL 5 MG TABLET PO SCH ×2 (10:07→21:30)
[2021-05-22] MEDS: ALBUTEROL SO4 0.083% IH SOL 2.5 MG/3 ML VIAL.NEB. NEB PRN (11:30)
[2021-05-22] MEDS: ALPRAZolam 0.25 MG TABLET PO PRN ×2 (11:51→17:48)
[2021-05-23] MEDS: AMINO ACIDS/PROTEIN HYDROLYS 30 ML LIQUID.PKT PO SCH (07:15)
[2021-05-23] MEDS: ALBUTEROL SO4 2.5/IPRATROPIUM 0.5 INH SOL 3 ML VIAL.NEB. NEB SCH ×2 (07:45→14:15)
[2021-05-23] MEDS: ASPIRIN COATED 81 MG TABLET.EC PO SCH (10:01)
[2021-05-23] MEDS: CEFUROXIME AXETIL 250 MG TABLET PO SCH (10:01)
[2021-05-23] MEDS: amLODIPine BESYLATE 5 MG TABLET (FP) PO SCH (10:02)
[2021-05-23] MEDS: POTASSIUM CHLORIDE TABS 10 MEQ TABLET.ER (FP) PO SCH (10:02)
[2021-05-23] MEDS: predniSONE 10 MG TABLET (UD) PO SCH (10:02)
[2021-05-23] MEDS: FUROSEMIDE 20 MG TABLET (FP) PO SCH (10:02)
[2021-05-23] MEDS: PANTOPRAZOLE 40 MG TABLET PO SCH (10:02)
[2021-05-23] MEDS: ESCITALOPRAM OXALATE 20 MG TABLET PO SCH (10:02)
[2021-05-23] MEDS: busPIRone HCL 5 MG TABLET PO SCH (10:02)
[2021-05-23] MEDS: MULTIVITAMINS (DAILY MVI) TABLET (FP) PO SCH (10:02)
[2021-05-23] MEDS ORDERED: ALBUTEROL SO4 0.083% IH SOL 2.5 MG/3 ML VIAL.NEB. NEB PRN (10:20)
[2021-05-23] MEDS: ALPRAZolam 0.25 MG TABLET PO PRN (12:42)
[2021-05-23 14:54] VITALS: BP 155/74; PULSE 94; TEMP 97.3
== END 2021-05-23 19:33 | DRG 193 ==
LOC: JER 21:31 → JERBED 23:52 → J4W 05-17 04:16
PROVIDERS: ADMIT Internal Medicine; ATTEND Family Medicine
DX: J18.9 Pneumonia, unspecified organism (principal); J96.21 Acute and chronic respiratory failure with hypoxia; J96.22 Acute and chronic respiratory failure with hypercapnia; I50.33 Acute on chronic diastolic (congestive) heart failure; J44.1 Chronic obstructive pulmonary disease with (acute) exacerbation; I24.8 Other forms of acute ischemic heart disease; R64 Cachexia; E87.2 Acidosis; I47.2 Ventricular tachycardia; Z68.1 Body mass index [BMI] 19.9 or less, adult; I25.10 Atherosclerotic heart disease of native coronary artery without angina pectoris; I12.9 Hypertensive chronic kidney disease with stage 1 through stage 4 chronic kidney disease, or unspecified chronic kidney disease; N18.2 Chronic kidney disease, stage 2 (mild); F17.210 Nicotine dependence, cigarettes, uncomplicated; E83.51 Hypocalcemia; Z98.61 Coronary angioplasty status; K21.9 Gastro-esophageal reflux disease without esophagitis; D72.829 Elevated white blood cell count, unspecified; I48.0 Paroxysmal atrial fibrillation; E78.5 Hyperlipidemia, unspecified
CPT/HCPCS: 36415; 71045-TC-FY; 80048; 80053; 81003; 83605; 83735; 84100; 84484; 85025; 85610; 85730; 87040; 87086; 87899; 93005; 93010; 94640; 99285-25; C9803; J3480; U0003; U0005

== ENCOUNTER 2021-06-10 19:06 | Inpatient (IN) | payer OTHER, MEDICARE ==
[2021-06-10] MEDS ORDERED: FUROSEMIDE 40 MG/4 ML INJECTABLE VIAL IVPUSH ONE (20:30)
[2021-06-10] MEDS ORDERED: ALBUTEROL SO4 2.5/IPRATROPIUM 0.5 INH SOL 3 ML VIAL.NEB. NEB ONE ×2 (20:30→20:40)
[2021-06-10] MEDS ORDERED: LEVALBUTEROL HCL 0.31 MG/3 ML VIAL.NEB IH ONE ×2 (20:32)
[2021-06-10] MEDS ORDERED: methylPREDNISolone NA SUCC 125 MG/2 ML VIAL IVPUSH ONE (20:33)
[2021-06-10] MEDS ORDERED: FUROSEMIDE 40 MG/4 ML INJECTABLE VIAL ONE (21:04)
[2021-06-10 21:05] LABS: HEMATOCRIT 34.7 % (32.4-45.2); MCH 26.3 pg (25.7-33.7); MCHC 31.6 g/dl (32.0-36.0); MEAN PLT VOLUME 7.2 fl (7.5-11.1); PLATELET COUNT 208 10^3/uL (134-434); RBC 4.18 M/mm3 (3.60-5.2); WHITE BLOOD COUNT 18.1 K/mm3 (4.0-10.0)
[2021-06-10] MEDS ORDERED: methylPREDNISolone NA SUCC 125 MG/2 ML VIAL ONE (21:05)
[2021-06-10 21:12] LABS: INR 0.82 (0.83-1.09)
[2021-06-10 21:14] LABS: ACTIVATED PTT 22.5 SECONDS (25.2-36.5)
[2021-06-10 21:26] LABS: CALCIUM 8.4 mg/dL (8.5-10.1)
[2021-06-10 21:27] LABS: ALBUMIN 2.6 g/dl (3.4-5.0); BLOOD UREA NITROGEN 26.9 mg/dL (7-18); MAGNESIUM 2.4 mg/dL (1.8-2.4)
[2021-06-10 21:30] LABS: CREATININE 0.5 mg/dL (0.55-1.3)
[2021-06-10 21:31] LABS: BILIRUBIN,TOTAL 0.4 mg/dL (0.2-1); TOT PROT 5.5 g/dl (6.4-8.2)
[2021-06-10 21:35] LABS: N-TERMINAL BNP 6908.6 pg/ml (5-450)
[2021-06-10] MEDS ORDERED: ASPIRIN 81 MG CHEWABLE TABLETS PO ONE (21:53)
[2021-06-10] MEDS ORDERED: ASPIRIN 81 MG CHEWABLE TABLETS ONE (22:12)
[2021-06-10 22:18] LABS: ANISOCYTOSIS 1+; MACROCYTOSIS 1+; PLATELET ESTIMATE NORMAL
[2021-06-10 22:29] LABS: SARS COV-2 MOLECULAR Presumptive Positive (Negative)
[2021-06-11 06:59] LABS: BASO % 1.2 % (0-2.0); HEMATOCRIT 35.7 % (32.4-45.2); HEMOGLOBIN 11.3 GM/dL (10.7-15.3); LYMPH % 1.6 % (8-40); MCH 26.5 pg (25.7-33.7); MCHC 31.6 g/dl (32.0-36.0); MEAN CELL VOLUME 83.8 fl (80-96); MEAN PLT VOLUME 7.1 fl (7.5-11.1); MONO % 0.8 % (3.8-10.2); NEUT % 96.4 % (42.8-82.8); PLATELET COUNT 184 10^3/uL (134-434); RBC 4.25 M/mm3 (3.60-5.2); RDW 21.5 % (11.6-15.6)
[2021-06-11 07:20] LABS: ALBUMIN 2.7 g/dl (3.4-5.0); CALCIUM 8.3 mg/dL (8.5-10.1)
[2021-06-11 07:21] LABS: BLOOD UREA NITROGEN 25.5 mg/dL (7-18)
[2021-06-11 07:24] LABS: CREATININE 0.6 mg/dL (0.55-1.3)
[2021-06-11 07:25] LABS: BILIRUBIN,TOTAL 0.5 mg/dL (0.2-1); TOT PROT 4.6 g/dl (6.4-8.2)
[2021-06-11] MEDS ORDERED: ALBUTEROL SO4 HFA INHALER IH PRN (07:58)
[2021-06-11] MEDS ORDERED: PIPERACILLIN/TAZOB 3.375 GM 3.375 GM in DEXTROSE 5%-WATER - 50 ML IVPB ONE (08:51)
[2021-06-11] MEDS ORDERED: PIPERACILLIN/TAZOB 3.375 GM 3.375 GM/50 ML BAG IVPB ONE ×2 (09:25→18:56)
[2021-06-11] MEDS ORDERED: ASCORBIC ACID 500 MG TABLET (FP) ONE ×2 (09:29→22:17)
[2021-06-11] MEDS ORDERED: ASPIRIN COATED 81 MG TABLET.EC ONE (09:29)
[2021-06-11] MEDS ORDERED: amLODIPine BESYLATE 5 MG TABLET (FP) ONE (09:30)
[2021-06-11] MEDS ORDERED: CHOLECALCIFEROL (VIT D3) 1,000 UNIT (25 MCG) TABLET ONE (09:30)
[2021-06-11] MEDS ORDERED: ZINC SULFATE 220 MG CAPSULE (FP) ONE (09:30)
[2021-06-11] MEDS ORDERED: DEXAMETHASONE SOD PHOSPHATE 10 MG/1 ML VIAL ONE (09:30)
[2021-06-11] MEDS ORDERED: ESCITALOPRAM OXALATE 10 MG TABLET ONE (09:31)
[2021-06-11] MEDS ORDERED: ENOXAPARIN NA (PORCINE) 40 MG/0.4 ML DISP.SYRIN SQ ONE (09:31)
[2021-06-11] MEDS ORDERED: busPIRone HCL 5 MG TABLET ONE ×2 (09:31→22:17)
[2021-06-11 09:34] LABS: ANISOCYTOSIS 1+; MACROCYTOSIS 0; PLATELET ESTIMATE NORMAL
[2021-06-11] MEDS ORDERED: ASPIRIN 81 MG CHEWABLE TABLETS PO SCH (10:00)
[2021-06-11] MEDS: ASPIRIN COATED 81 MG TABLET.EC PO SCH (10:02)
[2021-06-11] MEDS: busPIRone HCL 5 MG TABLET PO SCH ×2 (10:02→22:20)
[2021-06-11] MEDS: DEXAMETHASONE SOD PHOSPHATE 4 MG/1 ML VIAL IVPUSH SCH (10:02)
[2021-06-11] MEDS: PANTOPRAZOLE 40 MG TABLET PO SCH (10:03)
[2021-06-11] MEDS: ESCITALOPRAM OXALATE 20 MG TABLET PO SCH (10:03)
[2021-06-11] MEDS: ASCORBIC ACID 500 MG TABLET (FP) PO SCH ×2 (10:03→22:20)
[2021-06-11] MEDS: MULTIVITAMINS (DAILY MVI) TABLET (FP) PO SCH (10:03)
[2021-06-11] MEDS: ZINC SULFATE 220 MG CAPSULE (FP) PO SCH (10:03)
[2021-06-11] MEDS: ENOXAPARIN NA (PORCINE) 40 MG/0.4 ML DISP.SYRIN SQ SCH (10:03)
[2021-06-11] MEDS: CHOLECALCIFEROL (VIT D3) 1,000 UNIT (25 MCG) TABLET PO SCH (10:03)
[2021-06-11] MEDS: amLODIPine BESYLATE 5 MG TABLET (FP) PO SCH (10:03)
[2021-06-11] MEDS: BUDESONIDE/FORMETEROL FUMARATE 160/4.5 mcg INHALER IH SCH ×2 (10:04→23:42)
[2021-06-11 10:30] LABS: LACTIC ACID 5.6 mmol/L (0.4-2.0)
[2021-06-11] MEDS ORDERED: ALBUTEROL SO4 HFA INHALER IH ONE (13:36)
[2021-06-11] MEDS: FUROSEMIDE 40 MG/4 ML INJECTABLE VIAL IVPUSH SCH (13:41)
[2021-06-11] MEDS ORDERED: SODIUM CHLORIDE 1,000 ML IV SCH (13:45)
[2021-06-11] MEDS ORDERED: REMDESIVIR 200 MG in SODIUM CHLORIDE 250 ML IVPB ONE (15:00)
[2021-06-11] MEDS: ALBUTEROL SO4 HFA INHALER IH SCH ×2 (16:16→20:42)
[2021-06-11] MEDS ORDERED: PIPERACILLIN/TAZOB 3.375 GM 3.375 GM in DEXTROSE 5%-WATER - 50 ML IVPB SCH (18:00)
[2021-06-11] MEDS: PIPERACILLIN/TAZOB 3.375 GM 3.375 GM in DEXTROSE 5%-WATER - 50 ML IVPB SCH (19:01)
[2021-06-12] MEDS ORDERED: PIPERACILLIN/TAZOBACTAM 3.375 GM VIAL IVPB ONE ×4 (02:23→17:51)
[2021-06-12] MEDS ORDERED: DEXTROSE 5%-WATER - 50 ML IVPB ONE ×4 (02:23→17:51)
[2021-06-12] MEDS: PIPERACILLIN/TAZOB 3.375 GM 3.375 GM in DEXTROSE 5%-WATER - 50 ML IVPB SCH ×3 (02:24→19:17)
[2021-06-12] MEDS: ALBUTEROL SO4 HFA INHALER IH SCH ×4 (07:06→20:35)
[2021-06-12 08:36] LABS: HEMATOCRIT 35.4 % (32.4-45.2); HEMOGLOBIN 11.2 GM/dL (10.7-15.3); MCH 26.5 pg (25.7-33.7); MCHC 31.6 g/dl (32.0-36.0); MEAN CELL VOLUME 83.7 fl (80-96); MEAN PLT VOLUME 7.7 fl (7.5-11.1); PLATELET COUNT 206 10^3/uL (134-434); RBC 4.23 M/mm3 (3.60-5.2); RDW 22.9 % (11.6-15.6); WHITE BLOOD COUNT 19.8 K/mm3 (4.0-10.0)
[2021-06-12 09:05] LABS: CALCIUM 8.3 mg/dL (8.5-10.1); MAGNESIUM 2.1 mg/dL (1.8-2.4)
[2021-06-12] MEDS ORDERED: ALPRAZOLAM 1 MG PO PRN (09:06)
[2021-06-12 09:09] LABS: CREATININE 0.4 mg/dL (0.55-1.3)
[2021-06-12 09:10] LABS: PHOSPHOROUS 2.5 mg/dL (2.5-4.9)
[2021-06-12 09:12] LABS: BILIRUBIN,TOTAL 0.5 mg/dL (0.2-1)
[2021-06-12 09:17] LABS: TOT PROT 5.3 g/dl (6.4-8.2)
[2021-06-12 09:32] LABS: ANISOCYTOSIS 2+; MACROCYTOSIS 0; PLATELET ESTIMATE NORMAL
[2021-06-12 09:33] LABS: ALBUMIN 2.5 g/dl (3.4-5.0)
[2021-06-12] MEDS ORDERED: POTASSIUM CHLORIDE TABS 20 MEQ TABLET.ER (FP) PO ONE (09:34)
[2021-06-12 10:11] LABS: SARS-CoV-2 NAA Detected (Not Detected)
[2021-06-12] MEDS: BUDESONIDE/FORMETEROL FUMARATE 160/4.5 mcg INHALER IH SCH ×2 (10:23→21:18)
[2021-06-12] MEDS: DEXAMETHASONE SOD PHOSPHATE 4 MG/1 ML VIAL IVPUSH SCH (10:33)
[2021-06-12] MEDS: ENOXAPARIN NA (PORCINE) 40 MG/0.4 ML DISP.SYRIN SQ SCH (10:33)
[2021-06-12] MEDS: PANTOPRAZOLE 40 MG TABLET PO SCH (10:34)
[2021-06-12] MEDS: busPIRone HCL 5 MG TABLET PO SCH ×2 (10:34→21:17)
[2021-06-12] MEDS: CHOLECALCIFEROL (VIT D3) 1,000 UNIT (25 MCG) TABLET PO SCH (10:34)
[2021-06-12] MEDS: ALPRAZolam 0.25 MG TABLET PO PRN ×2 (10:34→21:18)
[2021-06-12] MEDS: ASPIRIN COATED 81 MG TABLET.EC PO SCH (10:34)
[2021-06-12] MEDS: amLODIPine BESYLATE 5 MG TABLET (FP) PO SCH (10:35)
[2021-06-12] MEDS: ESCITALOPRAM OXALATE 20 MG TABLET PO SCH (10:35)
[2021-06-12] MEDS: ZINC SULFATE 220 MG CAPSULE (FP) PO SCH (10:35)
[2021-06-12] MEDS: ASCORBIC ACID 500 MG TABLET (FP) PO SCH ×2 (10:35→21:18)
[2021-06-12] MEDS: MULTIVITAMINS (DAILY MVI) TABLET (FP) PO SCH (10:35)
[2021-06-12] MEDS ORDERED: PT OWN MED DRAWER 7, Y5N ONE (13:22)
[2021-06-12] MEDS: REMDESIVIR 100 MG in SODIUM CHLORIDE 250 ML IVPB SCH (13:42)
[2021-06-12] MEDS: ATORVASTATIN CA 40 MG TABLET (FP) PO SCH (21:18)
[2021-06-13] MEDS ORDERED: DEXTROSE 5%-WATER - 50 ML IVPB ONE ×3 (01:31→17:06)
[2021-06-13] MEDS ORDERED: PIPERACILLIN/TAZOBACTAM 3.375 GM VIAL IVPB ONE ×3 (01:31→17:06)
[2021-06-13] MEDS: PIPERACILLIN/TAZOB 3.375 GM 3.375 GM in DEXTROSE 5%-WATER - 50 ML IVPB SCH ×3 (02:00→17:49)
[2021-06-13 07:47] LABS: HEMOGLOBIN 10.1 GM/dL (10.7-15.3); MCH 26.7 pg (25.7-33.7); MCHC 31.6 g/dl (32.0-36.0); MEAN CELL VOLUME 84.6 fl (80-96); MEAN PLT VOLUME 7.7 fl (7.5-11.1); PLATELET COUNT 168 10^3/uL (134-434); RBC 3.78 M/mm3 (3.60-5.2); RDW 23.3 % (11.6-15.6); WHITE BLOOD COUNT 15.1 K/mm3 (4.0-10.0)
[2021-06-13 07:52] LABS: ALBUMIN 2.2 g/dl (3.4-5.0); CALCIUM 8.4 mg/dL (8.5-10.1)
[2021-06-13 07:53] LABS: BLOOD UREA NITROGEN 20.8 mg/dL (7-18)
[2021-06-13 07:56] LABS: CREATININE 0.3 mg/dL (0.55-1.3)
[2021-06-13 07:57] LABS: BILIRUBIN,TOTAL 0.6 mg/dL (0.2-1); TOT PROT 4.8 g/dl (6.4-8.2)
[2021-06-13 08:50] LABS: ANISOCYTOSIS 3+; MACROCYTOSIS 0; PLATELET ESTIMATE NORMAL
[2021-06-13] MEDS: ASCORBIC ACID 500 MG TABLET (FP) PO SCH ×2 (09:32→21:37)
[2021-06-13] MEDS: ALBUTEROL SO4 HFA INHALER IH SCH ×3 (09:32→21:05)
[2021-06-13] MEDS: REMDESIVIR 100 MG in SODIUM CHLORIDE 250 ML IVPB SCH (09:32)
[2021-06-13] MEDS: MULTIVITAMINS (DAILY MVI) TABLET (FP) PO SCH (09:32)
[2021-06-13] MEDS: ENOXAPARIN NA (PORCINE) 40 MG/0.4 ML DISP.SYRIN SQ SCH (09:32)
[2021-06-13] MEDS: PANTOPRAZOLE 40 MG TABLET PO SCH (09:32)
[2021-06-13] MEDS: DEXAMETHASONE SOD PHOSPHATE 4 MG/1 ML VIAL IVPUSH SCH (09:33)
[2021-06-13] MEDS: amLODIPine BESYLATE 5 MG TABLET (FP) PO SCH (09:33)
[2021-06-13] MEDS: ALPRAZolam 0.25 MG TABLET PO PRN ×2 (09:33→21:34)
[2021-06-13] MEDS: busPIRone HCL 5 MG TABLET PO SCH ×2 (09:33→21:37)
[2021-06-13] MEDS: ZINC SULFATE 220 MG CAPSULE (FP) PO SCH (09:33)
[2021-06-13] MEDS: BUDESONIDE/FORMETEROL FUMARATE 160/4.5 mcg INHALER IH SCH ×2 (09:33→21:41)
[2021-06-13] MEDS: CHOLECALCIFEROL (VIT D3) 1,000 UNIT (25 MCG) TABLET PO SCH (09:33)
[2021-06-13] MEDS: ESCITALOPRAM OXALATE 20 MG TABLET PO SCH (09:33)
[2021-06-13] MEDS: ASPIRIN COATED 81 MG TABLET.EC PO SCH (09:33)
[2021-06-13 10:56] LABS: ARTERIAL BLOOD GAS BASE EXCESS 2.7 mmol/L (-2-2); ARTERIAL BLOOD GAS PO2 80.6 mmHg (80-100); ARTERIAL BLOOD GAS pH 7.413 (7.350-7.450)
[2021-06-13 10:57] LABS: ALLENS TEST POSITIVE
[2021-06-13 13:30] VITALS: BMI 16.9
[2021-06-13] MEDS: ATORVASTATIN CA 40 MG TABLET (FP) PO SCH (21:37)
[2021-06-13] MEDS: POTASSIUM CHLORIDE TABS 10 MEQ TABLET.ER (FP) PO SCH (21:37)
[2021-06-14] MEDS ORDERED: PIPERACILLIN/TAZOBACTAM 3.375 GM VIAL IVPB ONE ×3 (00:19→16:51)
[2021-06-14] MEDS ORDERED: DEXTROSE 5%-WATER - 50 ML IVPB ONE ×3 (00:19→16:51)
[2021-06-14] MEDS: PIPERACILLIN/TAZOB 3.375 GM 3.375 GM in DEXTROSE 5%-WATER - 50 ML IVPB SCH ×3 (01:23→17:27)
[2021-06-14 07:25] LABS: HEMATOCRIT 30.9 % (32.4-45.2); HEMOGLOBIN 9.9 GM/dL (10.7-15.3); MCH 27.1 pg (25.7-33.7); MEAN CELL VOLUME 84.7 fl (80-96); MEAN PLT VOLUME 7.3 fl (7.5-11.1); PLATELET COUNT 156 10^3/uL (134-434); RBC 3.64 M/mm3 (3.60-5.2); RDW 22.9 % (11.6-15.6); WHITE BLOOD COUNT 12.5 K/mm3 (4.0-10.0)
[2021-06-14 07:55] LABS: ALBUMIN 1.9 g/dl (3.4-5.0); BLOOD UREA NITROGEN 19.6 mg/dL (7-18)
[2021-06-14 07:58] LABS: CREATININE 0.2 mg/dL (0.55-1.3)
[2021-06-14 07:59] LABS: BILIRUBIN,TOTAL 0.5 mg/dL (0.2-1)
[2021-06-14 08:03] LABS: TOT PROT 4.5 g/dl (6.4-8.2)
[2021-06-14] MEDS: ALBUTEROL SO4 HFA INHALER IH SCH ×3 (08:55→20:44)
[2021-06-14] MEDS: AMINO ACIDS/PROTEIN HYDROLYS 30 ML LIQUID.PKT PO SCH ×2 (08:55→17:27)
[2021-06-14] MEDS: amLODIPine BESYLATE 5 MG TABLET (FP) PO SCH (10:26)
[2021-06-14] MEDS: busPIRone HCL 5 MG TABLET PO SCH ×2 (10:27→22:06)
[2021-06-14] MEDS: PANTOPRAZOLE 40 MG TABLET PO SCH (10:27)
[2021-06-14] MEDS: MULTIVITAMINS THER W-MINERALS COMBO TABLET (FP) PO SCH (10:27)
[2021-06-14] MEDS: ALPRAZolam 0.25 MG TABLET PO PRN ×2 (10:27→22:06)
[2021-06-14] MEDS: ESCITALOPRAM OXALATE 20 MG TABLET PO SCH (10:27)
[2021-06-14] MEDS: CHOLECALCIFEROL (VIT D3) 1,000 UNIT (25 MCG) TABLET PO SCH (10:27)
[2021-06-14] MEDS: ZINC SULFATE 220 MG CAPSULE (FP) PO SCH (10:27)
[2021-06-14] MEDS: ASPIRIN COATED 81 MG TABLET.EC PO SCH (10:27)
[2021-06-14] MEDS: POTASSIUM CHLORIDE TABS 10 MEQ TABLET.ER (FP) PO SCH ×2 (10:27→22:06)
[2021-06-14] MEDS: ASCORBIC ACID 500 MG TABLET (FP) PO SCH ×2 (10:28→22:06)
[2021-06-14] MEDS: DEXAMETHASONE SOD PHOSPHATE 4 MG/1 ML VIAL IVPUSH SCH (10:28)
[2021-06-14] MEDS: ENOXAPARIN NA (PORCINE) 40 MG/0.4 ML DISP.SYRIN SQ SCH (10:28)
[2021-06-14] MEDS: FUROSEMIDE 40 MG/4 ML INJECTABLE VIAL IVPUSH SCH (10:28)
[2021-06-14] MEDS: BUDESONIDE/FORMETEROL FUMARATE 160/4.5 mcg INHALER IH SCH ×2 (10:29→22:10)
[2021-06-14] MEDS ORDERED: PT OWN MED DRAWER 7, Y5N ONE (10:33)
[2021-06-14] MEDS: REMDESIVIR 100 MG in SODIUM CHLORIDE 250 ML IVPB SCH (10:33)
[2021-06-14] MEDS: ATORVASTATIN CA 40 MG TABLET (FP) PO SCH (22:06)
[2021-06-15] MEDS ORDERED: PIPERACILLIN/TAZOBACTAM 3.375 GM VIAL IVPB ONE ×3 (01:11→16:08)
[2021-06-15] MEDS ORDERED: DEXTROSE 5%-WATER - 50 ML IVPB ONE ×3 (01:11→16:08)
[2021-06-15] MEDS: PIPERACILLIN/TAZOB 3.375 GM 3.375 GM in DEXTROSE 5%-WATER - 50 ML IVPB SCH ×3 (01:29→17:57)
[2021-06-15] MEDS: ALBUTEROL SO4 HFA INHALER IH SCH ×4 (11:30→21:46)
[2021-06-15] MEDS: AMINO ACIDS/PROTEIN HYDROLYS 30 ML LIQUID.PKT PO SCH ×2 (11:30→17:56)
[2021-06-15] MEDS: MULTIVITAMINS THER W-MINERALS COMBO TABLET (FP) PO SCH (11:31)
[2021-06-15] MEDS: PANTOPRAZOLE 40 MG TABLET PO SCH (11:31)
[2021-06-15] MEDS: busPIRone HCL 5 MG TABLET PO SCH ×2 (11:31→21:45)
[2021-06-15] MEDS: ASCORBIC ACID 500 MG TABLET (FP) PO SCH ×2 (11:32→21:46)
[2021-06-15] MEDS: POTASSIUM CHLORIDE TABS 10 MEQ TABLET.ER (FP) PO SCH ×2 (11:32→21:45)
[2021-06-15] MEDS: amLODIPine BESYLATE 5 MG TABLET (FP) PO SCH (11:32)
[2021-06-15] MEDS: ESCITALOPRAM OXALATE 20 MG TABLET PO SCH (11:32)
[2021-06-15] MEDS: ASPIRIN COATED 81 MG TABLET.EC PO SCH (11:32)
[2021-06-15] MEDS: REMDESIVIR 100 MG in SODIUM CHLORIDE 250 ML IVPB SCH (11:33)
[2021-06-15] MEDS: BUDESONIDE/FORMETEROL FUMARATE 160/4.5 mcg INHALER IH SCH ×2 (11:33→21:46)
[2021-06-15] MEDS: CHOLECALCIFEROL (VIT D3) 1,000 UNIT (25 MCG) TABLET PO SCH (11:33)
[2021-06-15] MEDS: FUROSEMIDE 40 MG TABLET (FP) PO SCH (11:33)
[2021-06-15] MEDS: ALPRAZolam 0.25 MG TABLET PO PRN ×2 (11:34→21:44)
[2021-06-15] MEDS: ENOXAPARIN NA (PORCINE) 40 MG/0.4 ML DISP.SYRIN SQ SCH (11:34)
[2021-06-15] MEDS: ZINC SULFATE 220 MG CAPSULE (FP) PO SCH (11:34)
[2021-06-15] MEDS: DEXAMETHASONE SOD PHOSPHATE 4 MG/1 ML VIAL IVPUSH SCH (11:34)
[2021-06-15 17:34] LABS: HEMATOCRIT 29.7 % (32.4-45.2); HEMOGLOBIN 9.4 GM/dL (10.7-15.3); MCH 27.1 pg (25.7-33.7); MCHC 31.8 g/dl (32.0-36.0); MEAN CELL VOLUME 85.3 fl (80-96); MEAN PLT VOLUME 7.7 fl (7.5-11.1); PLATELET COUNT 225 10^3/uL (134-434); RBC 3.48 M/mm3 (3.60-5.2); RDW 23.3 % (11.6-15.6); WHITE BLOOD COUNT 13.6 K/mm3 (4.0-10.0)
[2021-06-15 17:53] LABS: ALBUMIN 1.9 g/dl (3.4-5.0); BLOOD UREA NITROGEN 26.3 mg/dL (7-18); CALCIUM 7.4 mg/dL (8.5-10.1)
[2021-06-15 17:54] LABS: MAGNESIUM 1.9 mg/dL (1.8-2.4)
[2021-06-15 17:56] LABS: PHOSPHOROUS 2.7 mg/dL (2.5-4.9)
[2021-06-15 17:57] LABS: CREATININE 0.7 mg/dL (0.55-1.3)
[2021-06-15 17:58] LABS: BILIRUBIN,TOTAL 0.3 mg/dL (0.2-1); TOT PROT 4.5 g/dl (6.4-8.2)
[2021-06-15 19:22] LABS: ERYTHROCYTE SEDIMENTATION RATE 26 mm/hr (0-30)
[2021-06-15] MEDS: ATORVASTATIN CA 40 MG TABLET (FP) PO SCH (21:45)
[2021-06-16] MEDS ORDERED: PIPERACILLIN/TAZOBACTAM 3.375 GM VIAL IVPB ONE ×3 (01:27→13:10)
[2021-06-16] MEDS ORDERED: DEXTROSE 5%-WATER - 50 ML IVPB ONE ×3 (01:27→13:10)
[2021-06-16] MEDS: PIPERACILLIN/TAZOB 3.375 GM 3.375 GM in DEXTROSE 5%-WATER - 50 ML IVPB SCH ×3 (01:30→18:03)
[2021-06-16] MEDS: ALBUTEROL SO4 HFA INHALER IH SCH ×5 (08:16→22:25)
[2021-06-16] MEDS: busPIRone HCL 5 MG TABLET PO SCH ×2 (10:16→22:24)
[2021-06-16] MEDS: AMINO ACIDS/PROTEIN HYDROLYS 30 ML LIQUID.PKT PO SCH ×2 (10:16→16:56)
[2021-06-16] MEDS: DEXAMETHASONE SOD PHOSPHATE 4 MG/1 ML VIAL IVPUSH SCH (10:16)
[2021-06-16] MEDS: PANTOPRAZOLE 40 MG TABLET PO SCH (10:19)
[2021-06-16] MEDS: ENOXAPARIN NA (PORCINE) 40 MG/0.4 ML DISP.SYRIN SQ SCH (10:19)
[2021-06-16] MEDS: ZINC SULFATE 220 MG CAPSULE (FP) PO SCH (10:19)
[2021-06-16] MEDS: POTASSIUM CHLORIDE TABS 10 MEQ TABLET.ER (FP) PO SCH ×2 (10:19→22:24)
[2021-06-16] MEDS: BUDESONIDE/FORMETEROL FUMARATE 160/4.5 mcg INHALER IH SCH ×2 (10:19→22:25)
[2021-06-16] MEDS: FUROSEMIDE 40 MG TABLET (FP) PO SCH (10:19)
[2021-06-16] MEDS: amLODIPine BESYLATE 5 MG TABLET (FP) PO SCH (10:19)
[2021-06-16] MEDS: ASPIRIN COATED 81 MG TABLET.EC PO SCH (10:19)
[2021-06-16] MEDS: ESCITALOPRAM OXALATE 20 MG TABLET PO SCH (10:19)
[2021-06-16] MEDS: MULTIVITAMINS THER W-MINERALS COMBO TABLET (FP) PO SCH (10:20)
[2021-06-16] MEDS: CHOLECALCIFEROL (VIT D3) 1,000 UNIT (25 MCG) TABLET PO SCH (10:20)
[2021-06-16] MEDS: ALPRAZolam 0.25 MG TABLET PO PRN ×2 (10:20→22:25)
[2021-06-16] MEDS: ASCORBIC ACID 500 MG TABLET (FP) PO SCH ×2 (10:20→22:24)
[2021-06-16 10:50] LABS: BASO % 0.3 % (0-2.0); EOS % 0.1 % (0-4.5); HEMATOCRIT 29.2 % (32.4-45.2); HEMOGLOBIN 9.3 GM/dL (10.7-15.3); LYMPH % 5.6 % (8-40); MCH 26.8 pg (25.7-33.7); MCHC 31.8 g/dl (32.0-36.0); MEAN CELL VOLUME 84.2 fl (80-96); MEAN PLT VOLUME 7.5 fl (7.5-11.1); MONO % 5.3 % (3.8-10.2); NEUT % 88.7 % (42.8-82.8); PLATELET COUNT 220 10^3/uL (134-434); RBC 3.46 M/mm3 (3.60-5.2); RDW 22.9 % (11.6-15.6); WHITE BLOOD COUNT 12.5 K/mm3 (4.0-10.0)
[2021-06-16 11:09] LABS: CALCIUM 7.6 mg/dL (8.5-10.1)
[2021-06-16 11:10] LABS: ALBUMIN 1.8 g/dl (3.4-5.0); BLOOD UREA NITROGEN 24.4 mg/dL (7-18); MAGNESIUM 1.7 mg/dL (1.8-2.4)
[2021-06-16 11:13] LABS: CREATININE 0.5 mg/dL (0.55-1.3); PHOSPHOROUS 2.3 mg/dL (2.5-4.9)
[2021-06-16 11:14] LABS: BILIRUBIN,TOTAL 0.3 mg/dL (0.2-1); TOT PROT 4.3 g/dl (6.4-8.2)
[2021-06-16] MEDS ORDERED: POTASSIUM PHOSPHATE 30 MM in SODIUM CHLORIDE 500 ML IVPB ONE (11:43)
[2021-06-16] MEDS ORDERED: MAGNESIUM OXIDE 400 MG TABLET (FP) PO ONE (11:43)
[2021-06-16] MEDS ORDERED: POTASSIUM CHLORIDE TABS 20 MEQ TABLET.ER (FP) PO ONE (11:43)
[2021-06-16 11:45] LABS: ARTERIAL BLD GAS O2 SATURATION 97.2 % (95-98); ARTERIAL BLOOD GAS BASE EXCESS 6.3 mmol/L (-2-2); ARTERIAL BLOOD GAS pH 7.415 (7.350-7.450)
[2021-06-16 11:47] LABS: ALLENS TEST POSITIVE; PT'S TEMP MP
[2021-06-16] MEDS ORDERED: ACETAMINOPHEN 325 MG TABLET (FP) PO PRN (15:49)
[2021-06-16] MEDS: ATORVASTATIN CA 40 MG TABLET (FP) PO SCH (22:25)
[2021-06-17] MEDS ORDERED: PIPERACILLIN/TAZOBACTAM 3.375 GM VIAL IVPB ONE ×3 (03:19→17:18)
[2021-06-17] MEDS ORDERED: DEXTROSE 5%-WATER - 50 ML IVPB ONE ×3 (03:20→17:19)
[2021-06-17] MEDS: PIPERACILLIN/TAZOB 3.375 GM 3.375 GM in DEXTROSE 5%-WATER - 50 ML IVPB SCH ×3 (03:30→17:48)
[2021-06-17 08:45] LABS: HEMATOCRIT 31.8 % (32.4-45.2); MCH 26.6 pg (25.7-33.7); MCHC 31.6 g/dl (32.0-36.0); MEAN CELL VOLUME 84.3 fl (80-96); MEAN PLT VOLUME 7.6 fl (7.5-11.1); PLATELET COUNT 259 10^3/uL (134-434); RBC 3.78 M/mm3 (3.60-5.2); RDW 23.6 % (11.6-15.6); WHITE BLOOD COUNT 13.3 K/mm3 (4.0-10.0)
[2021-06-17] MEDS: AMINO ACIDS/PROTEIN HYDROLYS 30 ML LIQUID.PKT PO SCH ×2 (09:00→17:48)
[2021-06-17 09:17] LABS: CALCIUM 7.9 mg/dL (8.5-10.1)
[2021-06-17 09:18] LABS: ALBUMIN 2.1 g/dl (3.4-5.0); BILIRUBIN,TOTAL 0.4 mg/dL (0.2-1); BLOOD UREA NITROGEN 20.7 mg/dL (7-18); IRON SERUM 37 ug/dL (50-175); MAGNESIUM 2.2 mg/dL (1.8-2.4); TOT PROT 4.8 g/dl (6.4-8.2); TOTAL IRON BINDING CAPACITY 223 ug/dL (250-450)
[2021-06-17 09:21] LABS: CREATININE 0.3 mg/dL (0.55-1.3); PHOSPHOROUS 3.4 mg/dL (2.5-4.9)
[2021-06-17] MEDS: ENOXAPARIN NA (PORCINE) 40 MG/0.4 ML DISP.SYRIN SQ SCH (10:05)
[2021-06-17] MEDS: DEXAMETHASONE SOD PHOSPHATE 4 MG/1 ML VIAL IVPUSH SCH (10:05)
[2021-06-17] MEDS: ALBUTEROL SO4 HFA INHALER IH SCH ×4 (10:06→21:16)
[2021-06-17] MEDS: ZINC SULFATE 220 MG CAPSULE (FP) PO SCH (10:07)
[2021-06-17] MEDS: PANTOPRAZOLE 40 MG TABLET PO SCH (10:07)
[2021-06-17] MEDS: ASPIRIN COATED 81 MG TABLET.EC PO SCH (10:07)
[2021-06-17] MEDS: MULTIVITAMINS THER W-MINERALS COMBO TABLET (FP) PO SCH (10:07)
[2021-06-17] MEDS: FUROSEMIDE 40 MG TABLET (FP) PO SCH (10:07)
[2021-06-17] MEDS: CHOLECALCIFEROL (VIT D3) 1,000 UNIT (25 MCG) TABLET PO SCH (10:07)
[2021-06-17] MEDS: ASCORBIC ACID 500 MG TABLET (FP) PO SCH ×2 (10:07→21:17)
[2021-06-17] MEDS: POTASSIUM CHLORIDE TABS 10 MEQ TABLET.ER (FP) PO SCH ×2 (10:07→21:16)
[2021-06-17] MEDS: busPIRone HCL 5 MG TABLET PO SCH ×2 (10:07→21:16)
[2021-06-17] MEDS: ESCITALOPRAM OXALATE 20 MG TABLET PO SCH (10:08)
[2021-06-17] MEDS: BUDESONIDE/FORMETEROL FUMARATE 160/4.5 mcg INHALER IH SCH ×2 (10:08→21:16)
[2021-06-17] MEDS: amLODIPine BESYLATE 5 MG TABLET (FP) PO SCH (12:40)
[2021-06-17 13:29] LABS: ANISOCYTOSIS 1+; MACROCYTOSIS 0; OVALOCYTE 1+; PLATELET ESTIMATE NORMAL
[2021-06-17] MEDS: ATORVASTATIN CA 40 MG TABLET (FP) PO SCH (21:16)
[2021-06-17] MEDS: ALPRAZolam 0.25 MG TABLET PO PRN (21:17)
[2021-06-18] MEDS ORDERED: PIPERACILLIN/TAZOBACTAM 3.375 GM VIAL IVPB ONE ×3 (01:08→16:44)
[2021-06-18] MEDS ORDERED: DEXTROSE 5%-WATER - 50 ML IVPB ONE ×3 (01:08→16:44)
[2021-06-18] MEDS: PIPERACILLIN/TAZOB 3.375 GM 3.375 GM in DEXTROSE 5%-WATER - 50 ML IVPB SCH ×3 (01:19→17:13)
[2021-06-18 09:01] LABS: HEMATOCRIT 30.1 % (32.4-45.2); HEMOGLOBIN 9.7 GM/dL (10.7-15.3); MCH 27.3 pg (25.7-33.7); MCHC 32.4 g/dl (32.0-36.0); MEAN CELL VOLUME 84.2 fl (80-96); MEAN PLT VOLUME 7.7 fl (7.5-11.1); PLATELET COUNT 267 10^3/uL (134-434); RBC 3.57 M/mm3 (3.60-5.2); RDW 23.5 % (11.6-15.6); WHITE BLOOD COUNT 13.6 K/mm3 (4.0-10.0)
[2021-06-18 09:22] LABS: CALCIUM 8.3 mg/dL (8.5-10.1)
[2021-06-18 09:23] LABS: ALBUMIN 2.1 g/dl (3.4-5.0); BLOOD UREA NITROGEN 24.6 mg/dL (7-18)
[2021-06-18 09:26] LABS: CREATININE 0.4 mg/dL (0.55-1.3)
[2021-06-18 09:27] LABS: BILIRUBIN,TOTAL 0.4 mg/dL (0.2-1)
[2021-06-18 09:28] LABS: TOT PROT 4.9 g/dl (6.4-8.2)
[2021-06-18 10:13] LABS: ANISOCYTOSIS 3+; MACROCYTOSIS 0; PLATELET ESTIMATE NORMAL
[2021-06-18] MEDS: ENOXAPARIN NA (PORCINE) 40 MG/0.4 ML DISP.SYRIN SQ SCH (10:55)
[2021-06-18] MEDS: ALBUTEROL SO4 HFA INHALER IH SCH ×4 (10:55→20:03)
[2021-06-18] MEDS: AMINO ACIDS/PROTEIN HYDROLYS 30 ML LIQUID.PKT PO SCH ×2 (10:55→17:13)
[2021-06-18] MEDS: DEXAMETHASONE SOD PHOSPHATE 4 MG/1 ML VIAL IVPUSH SCH (10:56)
[2021-06-18] MEDS: MULTIVITAMINS THER W-MINERALS COMBO TABLET (FP) PO SCH (10:57)
[2021-06-18] MEDS: ZINC SULFATE 220 MG CAPSULE (FP) PO SCH (10:57)
[2021-06-18] MEDS: FUROSEMIDE 40 MG TABLET (FP) PO SCH (10:57)
[2021-06-18] MEDS: ESCITALOPRAM OXALATE 20 MG TABLET PO SCH (10:57)
[2021-06-18] MEDS: busPIRone HCL 5 MG TABLET PO SCH ×2 (10:57→23:35)
[2021-06-18] MEDS: CHOLECALCIFEROL (VIT D3) 1,000 UNIT (25 MCG) TABLET PO SCH (10:57)
[2021-06-18] MEDS: PANTOPRAZOLE 40 MG TABLET PO SCH (10:57)
[2021-06-18] MEDS: BUDESONIDE/FORMETEROL FUMARATE 160/4.5 mcg INHALER IH SCH ×2 (10:57→23:35)
[2021-06-18] MEDS: ASPIRIN COATED 81 MG TABLET.EC PO SCH (10:57)
[2021-06-18] MEDS: ASCORBIC ACID 500 MG TABLET (FP) PO SCH ×2 (10:57→23:35)
[2021-06-18] MEDS: amLODIPine BESYLATE 5 MG TABLET (FP) PO SCH (10:57)
[2021-06-18] MEDS: POTASSIUM CHLORIDE TABS 10 MEQ TABLET.ER (FP) PO SCH ×2 (10:57→23:35)
[2021-06-18] MEDS: ALPRAZolam 0.25 MG TABLET PO PRN ×2 (11:38→20:04)
[2021-06-18] MEDS ORDERED: POTASSIUM CHLORIDE TABS 20 MEQ TABLET.ER (FP) PO ONE (14:48)
[2021-06-18] MEDS: ATORVASTATIN CA 40 MG TABLET (FP) PO SCH (23:35)
[2021-06-19] MEDS ORDERED: PIPERACILLIN/TAZOBACTAM 3.375 GM VIAL IVPB ONE ×3 (02:37→16:44)
[2021-06-19] MEDS ORDERED: DEXTROSE 5%-WATER - 50 ML IVPB ONE ×3 (02:37→16:44)
[2021-06-19] MEDS: PIPERACILLIN/TAZOB 3.375 GM 3.375 GM in DEXTROSE 5%-WATER - 50 ML IVPB SCH ×3 (02:38→17:02)
[2021-06-19] MEDS: ASPIRIN COATED 81 MG TABLET.EC PO SCH (10:15)
[2021-06-19] MEDS: ENOXAPARIN NA (PORCINE) 40 MG/0.4 ML DISP.SYRIN SQ SCH (10:15)
[2021-06-19] MEDS: PANTOPRAZOLE 40 MG TABLET PO SCH (10:15)
[2021-06-19] MEDS: POTASSIUM CHLORIDE TABS 10 MEQ TABLET.ER (FP) PO SCH ×2 (10:15→21:51)
[2021-06-19] MEDS: MULTIVITAMINS THER W-MINERALS COMBO TABLET (FP) PO SCH (10:15)
[2021-06-19] MEDS: amLODIPine BESYLATE 5 MG TABLET (FP) PO SCH (10:15)
[2021-06-19] MEDS: ESCITALOPRAM OXALATE 20 MG TABLET PO SCH (10:15)
[2021-06-19] MEDS: FUROSEMIDE 40 MG TABLET (FP) PO SCH (10:16)
[2021-06-19] MEDS: busPIRone HCL 5 MG TABLET PO SCH ×2 (10:16→21:51)
[2021-06-19] MEDS: ASCORBIC ACID 500 MG TABLET (FP) PO SCH ×2 (10:16→21:51)
[2021-06-19] MEDS: DEXAMETHASONE SOD PHOSPHATE 4 MG/1 ML VIAL IVPUSH SCH (10:16)
[2021-06-19] MEDS: ZINC SULFATE 220 MG CAPSULE (FP) PO SCH (10:16)
[2021-06-19] MEDS: CHOLECALCIFEROL (VIT D3) 1,000 UNIT (25 MCG) TABLET PO SCH (10:16)
[2021-06-19] MEDS: BUDESONIDE/FORMETEROL FUMARATE 160/4.5 mcg INHALER IH SCH ×2 (10:17→21:51)
[2021-06-19] MEDS: ALBUTEROL SO4 HFA INHALER IH SCH ×4 (10:19→20:30)
[2021-06-19] MEDS: AMINO ACIDS/PROTEIN HYDROLYS 30 ML LIQUID.PKT PO SCH ×2 (10:20→16:56)
[2021-06-19 10:51] LABS: HEMATOCRIT 32.1 % (32.4-45.2); MCH 26.7 pg (25.7-33.7); MCHC 31.3 g/dl (32.0-36.0); MEAN CELL VOLUME 85.4 fl (80-96); MEAN PLT VOLUME 7.9 fl (7.5-11.1); PLATELET COUNT 285 10^3/uL (134-434); RBC 3.76 M/mm3 (3.60-5.2); RDW 24.1 % (11.6-15.6); WHITE BLOOD COUNT 19.4 K/mm3 (4.0-10.0)
[2021-06-19 11:22] LABS: CALCIUM 8.6 mg/dL (8.5-10.1)
[2021-06-19 11:23] LABS: BLOOD UREA NITROGEN 26.6 mg/dL (7-18)
[2021-06-19 11:26] LABS: CREATININE 0.5 mg/dL (0.55-1.3)
[2021-06-19] MEDS: ALPRAZolam 0.25 MG TABLET PO PRN ×2 (11:45→19:46)
[2021-06-19 12:05] LABS: ANISOCYTOSIS 2+; MACROCYTOSIS 0; OVALOCYTE 1+; PLATELET ESTIMATE NORMAL
[2021-06-19] MEDS: ATORVASTATIN CA 40 MG TABLET (FP) PO SCH (21:51)
[2021-06-20] MEDS ORDERED: PIPERACILLIN/TAZOBACTAM 3.375 GM VIAL IVPB ONE ×3 (00:31→17:04)
[2021-06-20] MEDS ORDERED: DEXTROSE 5%-WATER - 50 ML IVPB ONE ×3 (00:31→17:04)
[2021-06-20] MEDS: PIPERACILLIN/TAZOB 3.375 GM 3.375 GM in DEXTROSE 5%-WATER - 50 ML IVPB SCH ×3 (02:18→17:34)
[2021-06-20 08:21] LABS: HEMATOCRIT 31.6 % (32.4-45.2); MCH 26.9 pg (25.7-33.7); MCHC 31.6 g/dl (32.0-36.0); MEAN CELL VOLUME 85.2 fl (80-96); MEAN PLT VOLUME 7.8 fl (7.5-11.1); PLATELET COUNT 282 10^3/uL (134-434); WHITE BLOOD COUNT 18.8 K/mm3 (4.0-10.0)
[2021-06-20 08:42] LABS: CALCIUM 8.6 mg/dL (8.5-10.1)
[2021-06-20 08:43] LABS: BLOOD UREA NITROGEN 29.6 mg/dL (7-18); MAGNESIUM 2.2 mg/dL (1.8-2.4)
[2021-06-20 08:46] LABS: CREATININE 0.5 mg/dL (0.55-1.3); PHOSPHOROUS 2.9 mg/dL (2.5-4.9)
[2021-06-20] MEDS: AMINO ACIDS/PROTEIN HYDROLYS 30 ML LIQUID.PKT PO SCH ×2 (08:47→17:34)
[2021-06-20] MEDS: DEXAMETHASONE SOD PHOSPHATE 4 MG/1 ML VIAL IVPUSH SCH (09:31)
[2021-06-20] MEDS: ESCITALOPRAM OXALATE 20 MG TABLET PO SCH (09:31)
[2021-06-20] MEDS: ASPIRIN COATED 81 MG TABLET.EC PO SCH (09:31)
[2021-06-20] MEDS: PANTOPRAZOLE 40 MG TABLET PO SCH (09:32)
[2021-06-20] MEDS: busPIRone HCL 5 MG TABLET PO SCH ×2 (09:32→21:31)
[2021-06-20] MEDS: FUROSEMIDE 40 MG TABLET (FP) PO SCH (09:32)
[2021-06-20] MEDS: CHOLECALCIFEROL (VIT D3) 1,000 UNIT (25 MCG) TABLET PO SCH (09:32)
[2021-06-20] MEDS: ASCORBIC ACID 500 MG TABLET (FP) PO SCH ×2 (09:32→21:32)
[2021-06-20] MEDS: MULTIVITAMINS THER W-MINERALS COMBO TABLET (FP) PO SCH (09:32)
[2021-06-20] MEDS: POTASSIUM CHLORIDE TABS 10 MEQ TABLET.ER (FP) PO SCH ×2 (09:33→21:32)
[2021-06-20] MEDS: amLODIPine BESYLATE 5 MG TABLET (FP) PO SCH (09:33)
[2021-06-20] MEDS: ZINC SULFATE 220 MG CAPSULE (FP) PO SCH (09:33)
[2021-06-20] MEDS: ALBUTEROL SO4 HFA INHALER IH SCH ×4 (09:34→21:32)
[2021-06-20] MEDS: BUDESONIDE/FORMETEROL FUMARATE 160/4.5 mcg INHALER IH SCH ×2 (09:34→21:32)
[2021-06-20] MEDS: ENOXAPARIN NA (PORCINE) 40 MG/0.4 ML DISP.SYRIN SQ SCH (09:35)
[2021-06-20] MEDS ORDERED: POTASSIUM CHLORIDE TABS 20 MEQ TABLET.ER (FP) PO ONE (14:26)
[2021-06-20] MEDS: ALPRAZolam 0.25 MG TABLET PO PRN (17:34)
[2021-06-20] MEDS ORDERED: ALPRAZolam 0.25 MG TABLET PO ONE (19:55)
[2021-06-20] MEDS: ATORVASTATIN CA 40 MG TABLET (FP) PO SCH (21:31)
[2021-06-21] MEDS ORDERED: DEXTROSE 5%-WATER - 50 ML IVPB ONE ×3 (00:54→17:08)
[2021-06-21] MEDS ORDERED: PIPERACILLIN/TAZOBACTAM 3.375 GM VIAL IVPB ONE ×3 (00:54→17:08)
[2021-06-21] MEDS: PIPERACILLIN/TAZOB 3.375 GM 3.375 GM in DEXTROSE 5%-WATER - 50 ML IVPB SCH ×2 (01:10→10:19)
[2021-06-21] MEDS: ALPRAZolam 0.25 MG TABLET PO PRN ×3 (02:48→21:12)
[2021-06-21] MEDS ORDERED: METOPROLOL TARTRATE 5 MG/5 ML VIAL IVPUSH ONE (06:37)
[2021-06-21] MEDS ORDERED: dilTIAZem HCL 25 MG/5 ML - 5 ML VIAL IVPUSH ONE ×2 (06:51→09:46)
[2021-06-21] MEDS ORDERED: ESCITALOPRAM OXALATE 10 MG TABLET ONE (09:45)
[2021-06-21] MEDS ORDERED: PT OWN MED DRAWER 7, Y5N ONE ×2 (09:47→20:32)
[2021-06-21] MEDS: MULTIVITAMINS THER W-MINERALS COMBO TABLET (FP) PO SCH (10:14)
[2021-06-21] MEDS: ASPIRIN COATED 81 MG TABLET.EC PO SCH (10:15)
[2021-06-21] MEDS: PANTOPRAZOLE 40 MG TABLET PO SCH (10:16)
[2021-06-21] MEDS: ASCORBIC ACID 500 MG TABLET (FP) PO SCH ×2 (10:17→21:12)
[2021-06-21] MEDS: ESCITALOPRAM OXALATE 20 MG TABLET PO SCH (10:18)
[2021-06-21] MEDS: CHOLECALCIFEROL (VIT D3) 1,000 UNIT (25 MCG) TABLET PO SCH (10:18)
[2021-06-21] MEDS: FUROSEMIDE 40 MG TABLET (FP) PO SCH (10:19)
[2021-06-21] MEDS: DEXAMETHASONE SOD PHOSPHATE 4 MG/1 ML VIAL IVPUSH SCH (10:20)
[2021-06-21] MEDS: amLODIPine BESYLATE 5 MG TABLET (FP) PO SCH (10:20)
[2021-06-21] MEDS: busPIRone HCL 5 MG TABLET PO SCH ×2 (10:22→21:11)
[2021-06-21] MEDS: ENOXAPARIN NA (PORCINE) 40 MG/0.4 ML DISP.SYRIN SQ SCH (10:23)
[2021-06-21] MEDS: AMINO ACIDS/PROTEIN HYDROLYS 30 ML LIQUID.PKT PO SCH ×2 (10:23→17:47)
[2021-06-21] MEDS: ALBUTEROL SO4 HFA INHALER IH SCH ×4 (10:46→20:29)
[2021-06-21] MEDS: BUDESONIDE/FORMETEROL FUMARATE 160/4.5 mcg INHALER IH SCH ×2 (10:46→21:11)
[2021-06-21 11:01] LABS: ARTERIAL BLD GAS O2 SATURATION 88.8 % (95-98); ARTERIAL BLOOD GAS BASE EXCESS 10.1 mmol/L (-2-2); ARTERIAL BLOOD GAS PO2 54.4 mmHg (80-100)
[2021-06-21] MEDS: POTASSIUM CHLORIDE TABS 10 MEQ TABLET.ER (FP) PO SCH ×2 (11:52→21:11)
[2021-06-21] MEDS: ZINC SULFATE 220 MG CAPSULE (FP) PO SCH (11:52)
[2021-06-21] MEDS: dilTIAZem HCL 30 MG TABLET PO SCH ×2 (11:52→20:26)
[2021-06-21] MEDS ORDERED: SODIUM CHLORIDE 250 ML IV SCH (15:45)
[2021-06-21 17:28] LABS: HEMOGLOBIN 8.4 GM/dL (10.7-15.3); MCH 26.6 pg (25.7-33.7); MCHC 30.9 g/dl (32.0-36.0); MEAN CELL VOLUME 85.9 fl (80-96); MEAN PLT VOLUME 7.6 fl (7.5-11.1); PLATELET COUNT 237 10^3/uL (134-434); RBC 3.15 M/mm3 (3.60-5.2); RDW 24.1 % (11.6-15.6); WHITE BLOOD COUNT 22.7 K/mm3 (4.0-10.0)
[2021-06-21 17:58] LABS: BLOOD UREA NITROGEN 36.3 mg/dL (7-18); CALCIUM 8.3 mg/dL (8.5-10.1); MAGNESIUM 2.2 mg/dL (1.8-2.4)
[2021-06-21 18:02] LABS: CREATININE 0.8 mg/dL (0.55-1.3); PHOSPHOROUS 3.6 mg/dL (2.5-4.9)
[2021-06-21] MEDS: ATORVASTATIN CA 40 MG TABLET (FP) PO SCH (21:11)
[2021-06-22] MEDS: dilTIAZem HCL 30 MG TABLET PO SCH ×5 (00:19→23:54)
[2021-06-22] MEDS: ALPRAZolam 0.25 MG TABLET PO PRN ×2 (05:14→21:41)
[2021-06-22 07:58] LABS: HEMATOCRIT 27.1 % (32.4-45.2); HEMOGLOBIN 8.6 GM/dL (10.7-15.3); MCH 27.2 pg (25.7-33.7); MCHC 31.5 g/dl (32.0-36.0); MEAN CELL VOLUME 86.2 fl (80-96); MEAN PLT VOLUME 7.8 fl (7.5-11.1); PLATELET COUNT 258 10^3/uL (134-434); RBC 3.15 M/mm3 (3.60-5.2); RDW 23.9 % (11.6-15.6); WHITE BLOOD COUNT 27.5 K/mm3 (4.0-10.0)
[2021-06-22 08:14] LABS: CALCIUM 8.6 mg/dL (8.5-10.1)
[2021-06-22 08:15] LABS: BLOOD UREA NITROGEN 34.6 mg/dL (7-18)
[2021-06-22 08:16] LABS: MAGNESIUM 2.2 mg/dL (1.8-2.4)
[2021-06-22 08:18] LABS: CREATININE 0.5 mg/dL (0.55-1.3)
[2021-06-22 08:20] LABS: PHOSPHOROUS 3.5 mg/dL (2.5-4.9)
[2021-06-22] MEDS ORDERED: ESCITALOPRAM OXALATE 10 MG TABLET ONE (08:57)
[2021-06-22] MEDS ORDERED: PT OWN MED DRAWER 7, Y5N ONE ×2 (08:58→20:56)
[2021-06-22] MEDS: AMINO ACIDS/PROTEIN HYDROLYS 30 ML LIQUID.PKT PO SCH ×2 (09:41→17:06)
[2021-06-22] MEDS: DEXAMETHASONE SOD PHOSPHATE 4 MG/1 ML VIAL IVPUSH SCH (09:41)
[2021-06-22] MEDS: ENOXAPARIN NA (PORCINE) 40 MG/0.4 ML DISP.SYRIN SQ SCH (09:41)
[2021-06-22] MEDS: amLODIPine BESYLATE 5 MG TABLET (FP) PO SCH (09:42)
[2021-06-22] MEDS: busPIRone HCL 5 MG TABLET PO SCH ×2 (09:42→21:43)
[2021-06-22] MEDS: ZINC SULFATE 220 MG CAPSULE (FP) PO SCH (09:42)
[2021-06-22] MEDS: POTASSIUM CHLORIDE TABS 10 MEQ TABLET.ER (FP) PO SCH ×2 (09:42→21:42)
[2021-06-22] MEDS: ASPIRIN COATED 81 MG TABLET.EC PO SCH (09:42)
[2021-06-22] MEDS: FUROSEMIDE 40 MG TABLET (FP) PO SCH (09:42)
[2021-06-22] MEDS: ESCITALOPRAM OXALATE 20 MG TABLET PO SCH (09:43)
[2021-06-22] MEDS: ASCORBIC ACID 500 MG TABLET (FP) PO SCH ×2 (09:44→21:42)
[2021-06-22] MEDS: MULTIVITAMINS THER W-MINERALS COMBO TABLET (FP) PO SCH (09:44)
[2021-06-22] MEDS: PANTOPRAZOLE 40 MG TABLET PO SCH (09:44)
[2021-06-22] MEDS: CHOLECALCIFEROL (VIT D3) 1,000 UNIT (25 MCG) TABLET PO SCH (09:44)
[2021-06-22] MEDS: ALBUTEROL SO4 HFA INHALER IH SCH ×4 (09:45→21:43)
[2021-06-22] MEDS: BUDESONIDE/FORMETEROL FUMARATE 160/4.5 mcg INHALER IH SCH ×2 (09:45→21:42)
[2021-06-22] MEDS: ATORVASTATIN CA 40 MG TABLET (FP) PO SCH (21:42)
[2021-06-23] MEDS: dilTIAZem HCL 30 MG TABLET PO SCH ×3 (06:04→17:26)
[2021-06-23] MEDS: ALPRAZolam 0.25 MG TABLET PO PRN ×2 (06:05→11:14)
[2021-06-23 07:44] LABS: BLOOD UREA NITROGEN 35.6 mg/dL (7-18); CALCIUM 8.7 mg/dL (8.5-10.1); MAGNESIUM 2.6 mg/dL (1.8-2.4)
[2021-06-23 07:46] LABS: HEMATOCRIT 25.2 % (32.4-45.2); MCH 27.5 pg (25.7-33.7); MCHC 31.7 g/dl (32.0-36.0); MEAN CELL VOLUME 86.9 fl (80-96); MEAN PLT VOLUME 7.8 fl (7.5-11.1); PLATELET COUNT 213 10^3/uL (134-434); RDW 24.1 % (11.6-15.6); WHITE BLOOD COUNT 24.5 K/mm3 (4.0-10.0)
[2021-06-23 07:48] LABS: CREATININE 0.5 mg/dL (0.55-1.3); PHOSPHOROUS 3.2 mg/dL (2.5-4.9)
[2021-06-23] MEDS ORDERED: ESCITALOPRAM OXALATE 10 MG TABLET ONE (09:23)
[2021-06-23] MEDS: CHOLECALCIFEROL (VIT D3) 1,000 UNIT (25 MCG) TABLET PO SCH (09:30)
[2021-06-23] MEDS: POTASSIUM CHLORIDE TABS 10 MEQ TABLET.ER (FP) PO SCH ×2 (09:30→22:27)
[2021-06-23] MEDS: ASPIRIN COATED 81 MG TABLET.EC PO SCH ×2 (09:30→11:07)
[2021-06-23] MEDS: MULTIVITAMINS THER W-MINERALS COMBO TABLET (FP) PO SCH (09:30)
[2021-06-23] MEDS: ENOXAPARIN NA (PORCINE) 40 MG/0.4 ML DISP.SYRIN SQ SCH ×2 (09:30→11:07)
[2021-06-23] MEDS: FUROSEMIDE 40 MG TABLET (FP) PO SCH (09:30)
[2021-06-23] MEDS: amLODIPine BESYLATE 5 MG TABLET (FP) PO SCH (09:30)
[2021-06-23] MEDS: PANTOPRAZOLE 40 MG TABLET PO SCH (09:30)
[2021-06-23] MEDS: ASCORBIC ACID 500 MG TABLET (FP) PO SCH ×2 (09:30→22:27)
[2021-06-23] MEDS: AMINO ACIDS/PROTEIN HYDROLYS 30 ML LIQUID.PKT PO SCH ×2 (09:30→17:26)
[2021-06-23] MEDS: ZINC SULFATE 220 MG CAPSULE (FP) PO SCH (09:30)
[2021-06-23] MEDS: ALBUTEROL SO4 HFA INHALER IH SCH ×4 (09:31→20:17)
[2021-06-23] MEDS: ESCITALOPRAM OXALATE 20 MG TABLET PO SCH (09:31)
[2021-06-23] MEDS: DEXAMETHASONE SOD PHOSPHATE 4 MG/1 ML VIAL IVPUSH SCH (09:31)
[2021-06-23] MEDS: BUDESONIDE/FORMETEROL FUMARATE 160/4.5 mcg INHALER IH SCH ×2 (09:32→22:27)
[2021-06-23] MEDS ORDERED: PT OWN MED DRAWER 7, Y5N ONE ×2 (09:40→22:25)
[2021-06-23] MEDS: busPIRone HCL 5 MG TABLET PO SCH ×2 (09:41→22:27)
[2021-06-23] MEDS ORDERED: ALPRAZolam 0.25 MG TABLET PO ONE (19:33)
[2021-06-23] MEDS: ATORVASTATIN CA 40 MG TABLET (FP) PO SCH (22:27)
[2021-06-24] MEDS: dilTIAZem HCL 30 MG TABLET PO SCH ×4 (00:08→17:11)
[2021-06-24] MEDS ORDERED: ALPRAZolam 1 MG TABLET PO PRN (00:21)
[2021-06-24] MEDS: ALPRAZolam 0.25 MG TABLET PO PRN ×2 (06:00→21:16)
[2021-06-24 08:22] LABS: HEMATOCRIT 25.8 % (32.4-45.2); HEMOGLOBIN 8.1 GM/dL (10.7-15.3); MCH 27.1 pg (25.7-33.7); MCHC 31.2 g/dl (32.0-36.0); MEAN CELL VOLUME 86.9 fl (80-96); MEAN PLT VOLUME 7.9 fl (7.5-11.1); PLATELET COUNT 201 10^3/uL (134-434); RBC 2.97 M/mm3 (3.60-5.2); RDW 24.3 % (11.6-15.6); WHITE BLOOD COUNT 25.4 K/mm3 (4.0-10.0)
[2021-06-24 08:46] LABS: CALCIUM 8.9 mg/dL (8.5-10.1)
[2021-06-24 08:47] LABS: BLOOD UREA NITROGEN 40.7 mg/dL (7-18)
[2021-06-24 08:48] LABS: MAGNESIUM 2.5 mg/dL (1.8-2.4)
[2021-06-24 08:50] LABS: CREATININE 0.6 mg/dL (0.55-1.3)
[2021-06-24 08:51] LABS: PHOSPHOROUS 3.2 mg/dL (2.5-4.9)
[2021-06-24] MEDS ORDERED: ESCITALOPRAM OXALATE 10 MG TABLET ONE (09:21)
[2021-06-24] MEDS ORDERED: PT OWN MED DRAWER 7, Y5N ONE (09:22)
[2021-06-24] MEDS: AMINO ACIDS/PROTEIN HYDROLYS 30 ML LIQUID.PKT PO SCH ×2 (09:48→17:11)
[2021-06-24] MEDS: PANTOPRAZOLE 40 MG TABLET PO SCH (09:48)
[2021-06-24] MEDS: MULTIVITAMINS THER W-MINERALS COMBO TABLET (FP) PO SCH (09:48)
[2021-06-24] MEDS: ALBUTEROL SO4 HFA INHALER IH SCH ×4 (09:48→21:24)
[2021-06-24] MEDS: DEXAMETHASONE SOD PHOSPHATE 4 MG/1 ML VIAL IVPUSH SCH (09:48)
[2021-06-24] MEDS: FUROSEMIDE 40 MG TABLET (FP) PO SCH (09:48)
[2021-06-24] MEDS: POTASSIUM CHLORIDE TABS 10 MEQ TABLET.ER (FP) PO SCH ×2 (09:48→21:16)
[2021-06-24] MEDS: ZINC SULFATE 220 MG CAPSULE (FP) PO SCH (09:48)
[2021-06-24] MEDS: ASCORBIC ACID 500 MG TABLET (FP) PO SCH ×2 (09:48→21:15)
[2021-06-24] MEDS: CHOLECALCIFEROL (VIT D3) 1,000 UNIT (25 MCG) TABLET PO SCH (09:48)
[2021-06-24] MEDS: busPIRone HCL 5 MG TABLET PO SCH ×2 (09:49→21:16)
[2021-06-24] MEDS: ENOXAPARIN NA (PORCINE) 40 MG/0.4 ML DISP.SYRIN SQ SCH (09:49)
[2021-06-24] MEDS: ESCITALOPRAM OXALATE 20 MG TABLET PO SCH (09:49)
[2021-06-24] MEDS: ASPIRIN COATED 81 MG TABLET.EC PO SCH (09:49)
[2021-06-24] MEDS: BUDESONIDE/FORMETEROL FUMARATE 160/4.5 mcg INHALER IH SCH ×2 (09:51→21:24)
[2021-06-24] MEDS: amLODIPine BESYLATE 5 MG TABLET (FP) PO SCH (09:51)
[2021-06-24] MEDS: ATORVASTATIN CA 40 MG TABLET (FP) PO SCH (21:16)
[2021-06-25] MEDS: ALPRAZolam 0.25 MG TABLET PO PRN ×2 (05:37→11:27)
[2021-06-25] MEDS: dilTIAZem HCL 30 MG TABLET PO SCH ×4 (05:37→17:38)
[2021-06-25] MEDS: ALBUTEROL SO4 HFA INHALER IH SCH ×4 (08:13→21:03)
[2021-06-25 08:21] LABS: HEMATOCRIT 25.7 % (32.4-45.2); HEMOGLOBIN 8.1 GM/dL (10.7-15.3); MCH 27.1 pg (25.7-33.7); MCHC 31.3 g/dl (32.0-36.0); MEAN CELL VOLUME 86.7 fl (80-96); PLATELET COUNT 202 10^3/uL (134-434); RBC 2.97 M/mm3 (3.60-5.2); RDW 24.4 % (11.6-15.6); WHITE BLOOD COUNT 23.9 K/mm3 (4.0-10.0)
[2021-06-25 08:47] LABS: ALBUMIN 2.2 g/dl (3.4-5.0); BLOOD UREA NITROGEN 37.8 mg/dL (7-18); MAGNESIUM 2.6 mg/dL (1.8-2.4)
[2021-06-25 08:51] LABS: BILIRUBIN,TOTAL 0.7 mg/dL (0.2-1); CREATININE 0.6 mg/dL (0.55-1.3); PHOSPHOROUS 3.4 mg/dL (2.5-4.9); TOT PROT 5.6 g/dl (6.4-8.2)
[2021-06-25] MEDS ORDERED: ESCITALOPRAM OXALATE 10 MG TABLET ONE (10:58)
[2021-06-25] MEDS: MULTIVITAMINS THER W-MINERALS COMBO TABLET (FP) PO SCH (11:12)
[2021-06-25] MEDS: PANTOPRAZOLE 40 MG TABLET PO SCH (11:12)
[2021-06-25] MEDS: ASPIRIN COATED 81 MG TABLET.EC PO SCH (11:12)
[2021-06-25] MEDS: POTASSIUM CHLORIDE TABS 10 MEQ TABLET.ER (FP) PO SCH ×2 (11:13→21:03)
[2021-06-25] MEDS: CHOLECALCIFEROL (VIT D3) 1,000 UNIT (25 MCG) TABLET PO SCH (11:13)
[2021-06-25] MEDS: FUROSEMIDE 40 MG TABLET (FP) PO SCH (11:13)
[2021-06-25] MEDS: AMINO ACIDS/PROTEIN HYDROLYS 30 ML LIQUID.PKT PO SCH ×2 (11:13→16:59)
[2021-06-25] MEDS: ZINC SULFATE 220 MG CAPSULE (FP) PO SCH (11:14)
[2021-06-25] MEDS: ENOXAPARIN NA (PORCINE) 40 MG/0.4 ML DISP.SYRIN SQ SCH (11:15)
[2021-06-25] MEDS: ESCITALOPRAM OXALATE 20 MG TABLET PO SCH (11:15)
[2021-06-25] MEDS: DEXAMETHASONE SOD PHOSPHATE 4 MG/1 ML VIAL IVPUSH SCH (11:15)
[2021-06-25] MEDS: busPIRone HCL 5 MG TABLET PO SCH ×2 (11:15→21:03)
[2021-06-25] MEDS: ASCORBIC ACID 500 MG TABLET (FP) PO SCH ×2 (11:16→21:03)
[2021-06-25] MEDS: BUDESONIDE/FORMETEROL FUMARATE 160/4.5 mcg INHALER IH SCH ×2 (11:16→21:03)
[2021-06-25] MEDS ORDERED: PT OWN MED DRAWER 7, Y5N ONE ×4 (12:20→21:01)
[2021-06-25] MEDS ORDERED: morphine SULFATE 4 MG/ML VIAL IVPUSH PRN (15:19)
[2021-06-25] MEDS ORDERED: DAPTOMYCIN 160 MG in SODIUM CHLORIDE 50 ML IVPB ONE (15:27)
[2021-06-25] MEDS: MORPHINE SULFATE 2 MG/ML VIAL IVPUSH PRN (16:59)
[2021-06-25] MEDS: ATORVASTATIN CA 40 MG TABLET (FP) PO SCH (21:03)
[2021-06-26] MEDS: dilTIAZem HCL 30 MG TABLET PO SCH ×5 (00:06→23:32)
[2021-06-26] MEDS: MORPHINE SULFATE 2 MG/ML VIAL IVPUSH PRN ×4 (00:06→17:15)
[2021-06-26] MEDS: ALBUTEROL SO4 HFA INHALER IH SCH ×4 (08:15→20:42)
[2021-06-26] MEDS ORDERED: ESCITALOPRAM OXALATE 10 MG TABLET ONE (10:03)
[2021-06-26] MEDS ORDERED: PT OWN MED DRAWER 7, Y5N ONE (10:04)
[2021-06-26] MEDS: DEXAMETHASONE SOD PHOSPHATE 4 MG/1 ML VIAL IVPUSH SCH (10:12)
[2021-06-26] MEDS: busPIRone HCL 5 MG TABLET PO SCH ×2 (10:13→21:38)
[2021-06-26] MEDS: MULTIVITAMINS THER W-MINERALS COMBO TABLET (FP) PO SCH (10:13)
[2021-06-26] MEDS: CHOLECALCIFEROL (VIT D3) 1,000 UNIT (25 MCG) TABLET PO SCH (10:13)
[2021-06-26] MEDS: POTASSIUM CHLORIDE TABS 10 MEQ TABLET.ER (FP) PO SCH ×2 (10:13→21:38)
[2021-06-26] MEDS: ASCORBIC ACID 500 MG TABLET (FP) PO SCH ×2 (10:13→21:39)
[2021-06-26] MEDS: PANTOPRAZOLE 40 MG TABLET PO SCH (10:13)
[2021-06-26] MEDS: FUROSEMIDE 40 MG TABLET (FP) PO SCH (10:13)
[2021-06-26] MEDS: ASPIRIN COATED 81 MG TABLET.EC PO SCH (10:13)
[2021-06-26] MEDS: BUDESONIDE/FORMETEROL FUMARATE 160/4.5 mcg INHALER IH SCH ×2 (10:14→21:39)
[2021-06-26] MEDS: AMINO ACIDS/PROTEIN HYDROLYS 30 ML LIQUID.PKT PO SCH ×2 (10:14→17:15)
[2021-06-26] MEDS: ENOXAPARIN NA (PORCINE) 40 MG/0.4 ML DISP.SYRIN SQ SCH (10:14)
[2021-06-26] MEDS: ESCITALOPRAM OXALATE 20 MG TABLET PO SCH (10:14)
[2021-06-26] MEDS: ZINC SULFATE 220 MG CAPSULE (FP) PO SCH (10:14)
[2021-06-26] MEDS: ALPRAZolam 0.25 MG TABLET PO PRN (10:27)
[2021-06-26 10:55] LABS: HEMOGLOBIN 8.3 GM/dL (10.7-15.3); MCH 27.1 pg (25.7-33.7); MCHC 30.7 g/dl (32.0-36.0); MEAN CELL VOLUME 88.1 fl (80-96); MEAN PLT VOLUME 8.1 fl (7.5-11.1); PLATELET COUNT 250 10^3/uL (134-434); RBC 3.06 M/mm3 (3.60-5.2); RDW 24.8 % (11.6-15.6); WHITE BLOOD COUNT 24.8 K/mm3 (4.0-10.0)
[2021-06-26 11:29] LABS: MAGNESIUM 2.7 mg/dL (1.8-2.4)
[2021-06-26 11:33] LABS: PHOSPHOROUS 4.6 mg/dL (2.5-4.9)
[2021-06-26] MEDS ORDERED: DEXTROSE 5%-0.45% SALINE 1,000 ML IV SCH (12:30)
[2021-06-26] MEDS: DAPTOMYCIN 160 MG in SODIUM CHLORIDE 50 ML IVPB SCH (15:29)
[2021-06-26] MEDS: ATORVASTATIN CA 40 MG TABLET (FP) PO SCH (21:39)
[2021-06-27] MEDS: MORPHINE SULFATE 2 MG/ML VIAL IVPUSH PRN (00:56)
[2021-06-27] MEDS: dilTIAZem HCL 30 MG TABLET PO SCH ×4 (06:10→23:23)
[2021-06-27] MEDS ORDERED: ACETAMINOPHEN 1000 MG/100 ML VIAL (NON FORMULARY) IVPB ONE (06:11)
[2021-06-27 08:06] LABS: HEMATOCRIT 28.2 % (32.4-45.2); HEMOGLOBIN 8.5 GM/dL (10.7-15.3); MCH 27.5 pg (25.7-33.7); MCHC 30.1 g/dl (32.0-36.0); MEAN CELL VOLUME 91.5 fl (80-96); MEAN PLT VOLUME 8.9 fl (7.5-11.1); PLATELET COUNT 251 10^3/uL (134-434); RBC 3.08 M/mm3 (3.60-5.2); RDW 25.6 % (11.6-15.6); WHITE BLOOD COUNT 21.8 K/mm3 (4.0-10.0)
[2021-06-27 08:27] LABS: MAGNESIUM 2.9 mg/dL (1.8-2.4)
[2021-06-27 08:28] LABS: BLOOD UREA NITROGEN 71.4 mg/dL (7-18)
[2021-06-27 08:30] LABS: CALCIUM 8.4 mg/dL (8.5-10.1); CREATININE 1.6 mg/dL (0.55-1.3); PHOSPHOROUS 5.5 mg/dL (2.5-4.9)
[2021-06-27] MEDS: AMINO ACIDS/PROTEIN HYDROLYS 30 ML LIQUID.PKT PO SCH ×2 (09:22→16:43)
[2021-06-27] MEDS: busPIRone HCL 5 MG TABLET PO SCH ×2 (09:58→21:30)
[2021-06-27] MEDS: ASPIRIN COATED 81 MG TABLET.EC PO SCH (09:58)
[2021-06-27] MEDS: MULTIVITAMINS THER W-MINERALS COMBO TABLET (FP) PO SCH (09:59)
[2021-06-27] MEDS: ESCITALOPRAM OXALATE 20 MG TABLET PO SCH (09:59)
[2021-06-27] MEDS: CHOLECALCIFEROL (VIT D3) 1,000 UNIT (25 MCG) TABLET PO SCH (09:59)
[2021-06-27] MEDS: POTASSIUM CHLORIDE TABS 10 MEQ TABLET.ER (FP) PO SCH ×2 (09:59→21:30)
[2021-06-27] MEDS: ZINC SULFATE 220 MG CAPSULE (FP) PO SCH (09:59)
[2021-06-27] MEDS: BUDESONIDE/FORMETEROL FUMARATE 160/4.5 mcg INHALER IH SCH ×2 (09:59→21:31)
[2021-06-27] MEDS: PANTOPRAZOLE 40 MG TABLET PO SCH (09:59)
[2021-06-27] MEDS: ASCORBIC ACID 500 MG TABLET (FP) PO SCH ×2 (09:59→21:31)
[2021-06-27] MEDS: ALBUTEROL SO4 HFA INHALER IH SCH ×4 (10:00→21:30)
[2021-06-27] MEDS ORDERED: PT OWN MED DRAWER 7, Y5N ONE (10:44)
[2021-06-27] MEDS: ENOXAPARIN NA (PORCINE) 40 MG/0.4 ML DISP.SYRIN SQ SCH (11:05)
[2021-06-27] MEDS: DEXAMETHASONE SOD PHOSPHATE 4 MG/1 ML VIAL IVPUSH SCH (11:05)
[2021-06-27] MEDS: DAPTOMYCIN 160 MG in SODIUM CHLORIDE 50 ML IVPB SCH (11:08)
[2021-06-27] MEDS: ACETAMINOPHEN 1000 MG/100 ML VIAL (NON FORMULARY) IVPB PRN ×2 (16:42→23:13)
[2021-06-27] MEDS: CALCIUM ACETATE 667 MG CAPSULE (FP) PO SCH (17:51)
[2021-06-27] MEDS: DEXTROSE 5%-0.45% SALINE 1,000 ML IV SCH (17:51)
[2021-06-27] MEDS: ATORVASTATIN CA 40 MG TABLET (FP) PO SCH (21:30)
[2021-06-28] MEDS: dilTIAZem HCL 30 MG TABLET PO SCH ×3 (05:50→17:52)
[2021-06-28] MEDS: CALCIUM ACETATE 667 MG CAPSULE (FP) PO SCH ×3 (08:41→17:47)
[2021-06-28] MEDS: ALBUTEROL SO4 HFA INHALER IH SCH ×3 (08:41→15:43)
[2021-06-28] MEDS: AMINO ACIDS/PROTEIN HYDROLYS 30 ML LIQUID.PKT PO SCH ×2 (08:41→17:47)
[2021-06-28] MEDS: ASPIRIN COATED 81 MG TABLET.EC PO SCH (10:05)
[2021-06-28] MEDS: busPIRone HCL 5 MG TABLET PO SCH (10:05)
[2021-06-28] MEDS: ZINC SULFATE 220 MG CAPSULE (FP) PO SCH (10:06)
[2021-06-28] MEDS: PANTOPRAZOLE 40 MG TABLET PO SCH (10:06)
[2021-06-28] MEDS: POTASSIUM CHLORIDE TABS 10 MEQ TABLET.ER (FP) PO SCH (10:06)
[2021-06-28] MEDS: ASCORBIC ACID 500 MG TABLET (FP) PO SCH (10:06)
[2021-06-28] MEDS: ESCITALOPRAM OXALATE 20 MG TABLET PO SCH (10:06)
[2021-06-28] MEDS: BUDESONIDE/FORMETEROL FUMARATE 160/4.5 mcg INHALER IH SCH (10:06)
[2021-06-28] MEDS: ENOXAPARIN NA (PORCINE) 40 MG/0.4 ML DISP.SYRIN SQ SCH (10:06)
[2021-06-28] MEDS: MULTIVITAMINS THER W-MINERALS COMBO TABLET (FP) PO SCH (10:06)
[2021-06-28] MEDS: CHOLECALCIFEROL (VIT D3) 1,000 UNIT (25 MCG) TABLET PO SCH (10:06)
[2021-06-28] MEDS: MORPHINE SULFATE 2 MG/ML VIAL IVPUSH PRN (10:07)
[2021-06-28] MEDS: DEXAMETHASONE SOD PHOSPHATE 4 MG/1 ML VIAL IVPUSH SCH (10:07)
[2021-06-28] MEDS ORDERED: PT OWN MED DRAWER 7, Y5N ONE ×2 (10:10→10:18)
[2021-06-28] MEDS: DEXTROSE 5%-0.45% SALINE 1,000 ML IV SCH ×2 (10:12→17:47)
[2021-06-28] MEDS: DAPTOMYCIN 160 MG in SODIUM CHLORIDE 50 ML IVPB SCH (10:24)
[2021-06-28 17:48] VITALS: BP 65/39; PULSE 68; TEMP 102.7
== END 2021-06-28 20:32 | DRG 177 ==
LOC: JER 19:06 → JERBED 22:00 → J4W 06-11 23:07 → J4S 06-20 14:18
PROVIDERS: ADMIT Internal Medicine; ATTEND Internal Medicine
PROC: XW033E5 Introduction of Remdesivir Anti-infective into Peripheral Vein, Percutaneous Approach, New Technology Group 5 (ICD-10-PCS; 2021-06-11)
PROC: 5A09458 Assistance with Respiratory Ventilation, 24-96 Consecutive Hours, Intermittent Positive Airway Pressure (ICD-10-PCS; principal; 2021-06-12)
DX: U07.1 COVID-19 (principal); J12.82 Pneumonia due to coronavirus disease 2019; I50.33 Acute on chronic diastolic (congestive) heart failure; E43 Unspecified severe protein-calorie malnutrition; J96.21 Acute and chronic respiratory failure with hypoxia; I13.0 Hypertensive heart and chronic kidney disease with heart failure and stage 1 through stage 4 chronic kidney disease, or unspecified chronic kidney disease; N17.9 Acute kidney failure, unspecified; I24.8 Other forms of acute ischemic heart disease; R64 Cachexia; Z68.1 Body mass index [BMI] 19.9 or less, adult; E87.2 Acidosis; E87.0 Hyperosmolality and hypernatremia; J44.1 Chronic obstructive pulmonary disease with (acute) exacerbation; N39.0 Urinary tract infection, site not specified; I25.10 Atherosclerotic heart disease of native coronary artery without angina pectoris; I10 Essential (primary) hypertension; I48.0 Paroxysmal atrial fibrillation; I25.2 Old myocardial infarction; K21.9 Gastro-esophageal reflux disease without esophagitis; I71.4 Abdominal aortic aneurysm, without rupture; N18.2 Chronic kidney disease, stage 2 (mild); E78.5 Hyperlipidemia, unspecified; D72.829 Elevated white blood cell count, unspecified; I71.2 Thoracic aortic aneurysm, without rupture; C67.9 Malignant neoplasm of bladder, unspecified; B96.20 Unspecified Escherichia coli [E. coli] as the cause of diseases classified elsewhere; K57.90 Diverticulosis of intestine, part unspecified, without perforation or abscess without bleeding; F41.8 Other specified anxiety disorders; F17.210 Nicotine dependence, cigarettes, uncomplicated; Z99.81 Dependence on supplemental oxygen; Z95.5 Presence of coronary angioplasty implant and graft
CPT/HCPCS: 36415; 36600; 71045-TC-FY; 71275-TC; 80048; 80053; 80061; 82728; 82803; 83540; 83550; 83605; 83615; 83735; 83880; 84100; 84466; 84484; 85025; 85027; 85379; 85610; 85651; 85730; 86140; 87040; 87070; 87086; 87107; 87186; 87205; 87305; 87899; 93005; 93010; 94660; 94761; 99291; C9399; C9803; J0131; J0878; Q9967; U0003; U0005